=== PATIENT | female | born 1955 | race Two or more races ===

== ENCOUNTER → 2020-08-13 10:54 | Outpatient (BNVA) | payer MEDICARE, MEDICAID, OTHER, SELFPAY | PROVIDERS: PCP Pediatrics; Referring Provider Pediatrics; Visit Provider Physician Assistant | DX: K21.9 Gastro-esophageal reflux disease without esophagitis (principal); K58.9 Irritable bowel syndrome, unspecified; Z79.899 Other long term (current) drug therapy | CPT/HCPCS: 99213 ==

== ENCOUNTER 2020-08-14 12:15 | Emergency (ER) | payer MEDICARE, OTHER, SELFPAY ==
[2020-08-14 12:21] VITALS: BP 137/83; PULSE 74; RESP 16; TEMP 36.7; O2SAT 99; BMI 31.9
--- NOTE | 2020-08-14 12:26 | ED_ITS ---
HPI - Asthma General Chief Complaint: Dyspnea Stated Complaint: SOB FOR DAYS W/ CP Time Seen by Provider: 08/14/20 12:18 Source: EMS Mode of arrival: EMS Limitations: no limitations History of Present Illness HPI Narrative: 65-year-old female with history of asthma, hypothyroidism and history of breast CA status post resection presenting via EMS from urgent care with complaint of asthma exacerbation in the setting of URI for the past 3 days with associated symptoms of rhinorrhea, postnasal drip and cough with congestion. States this is triggering her asthma to have wheezing she tried to hold off and attempt to call her primary care doctor who did not answer so she went to the urgent care where she complaint of chest pain and was subsequently sent by EMS to the emergency room. Patient reports pain only with cough. No pain at this time. States history of similar symptoms in the past. Patient familiar to me from her prior visits here for asthma. Onset (ago): day(s) (3 +days ) Severity: mild Context: recent URI Asthma History: history of prior ED visit Treatments Prior to Arrival: inhaled bronchodilator Related Data Current Asthma Therapy: inhaled bronchodilator Home Medications Medication Instructions Recorded Confirmed albuterol sulfate mg INHALATION QID PRN 07/30/20 08/13/20 cetirizine 10 mg tablet 10 mg PO DAILY 07/30/20 08/13/20 cholecalciferol (vitamin D3) 50 50 mcg PO BID 07/30/20 08/13/20 mcg (2,000 unit) capsule citalopram 40 mg tablet 40 mg PO DAILY 07/30/20 08/13/20 clonazepam 0.5 mg tablet 0.5 mg PO DAILY PRN 07/30/20 08/13/20 clotrimazole 1 % topical cream applic TOPICAL BID 07/30/20 08/13/20 diphenhydramine HCl 25 mg tablet 25 mg PO BEDTIME PRN 07/30/20 08/13/20 fluticasone furoate 200 1 ea INHALATION DAILY 07/30/20 08/13/20 mcg-vilanterol 25 mcg/dose inhalation powder fluticasone propionate 50 1 spray INTRANASAL BID 07/30/20 08/13/20 mcg/actuation nasal spray,suspension hydrocortisone 2.5 % topical cream WV 07/30/20 08/13/20 with perineal applicator levothyroxine 100 mcg tablet 100 mcg PO DAILY 07/30/20 08/13/20 montelukast 10 mg tablet 10 mg PO DAILY 07/30/20 08/13/20 omeprazole 20 mg capsule,delayed 20 mg PO DAILY 07/30/20 08/13/20 release pantoprazole 40 mg tablet,delayed 40 mg PO DAILY 07/30/20 08/13/20 release umeclidinium 62.5 mcg/actuation INHALATION 07/30/20 08/13/20 blister powder for inhalation Previous Rx's Medication Instructions Recorded albuterol sulfate 2 puff INHALATION Q4-6H PRN #18 g 08/14/20 benzonatate [Tessalon Perles] 100 mg PO BID PRN #14 cap 08/14/20 prednisone 40 mg PO DAILY 5 Days #10 tab 08/14/20 Allergies Allergy/AdvReac Type Severity Reaction Status Date / Time animal dander Allergy Mild SHORTNESS Unverified 07/18/20 15:53 OF BREATH ciprofloxacin [From Cipro] Allergy Mild RASH Unverified 07/18/20 15:53 vancomycin [Vancomycin] Allergy Mild SHORTNESS Unverified 07/18/20 15:53 OF BREATH amoxicillin [AMOXICILLIN] Allergy Unknown RASH Unverified 07/18/20 15:53 chicken derived Allergy Unknown UNKNOWN Unverified 07/18/20 15:53 [CHICKEN DERIVED] egg [EGG] Allergy Unknown UNKNOWN Unverified 07/18/20 15:53 Penicillins [PENICILLINS] Allergy Unknown RASH Unverified 07/18/20 15:53 Review of Systems Review of Systems: Constitutional: No Weight loss, No Fever, No Chills, No Night Sweats, No Fatigue, No Malaise ENT/Mouth: No Hearing loss, No Ear Pain, + Nasal Congestion, No Sinus Pain, No Hoarseness, No sore throat, + Rhinorrhea, No Swallowing Difficulty Eyes: No Eye Pain, No Swelling, No Redness, No Foreign Body, No Discharge, No Vision Changes Cardiovascular: No Chest Pain, No SOB, No Dyspnea on Exertion, No Orthopnea, No Edema, No Palpitations Respiratory: + dry Cough with associated cwp, No Sputum, + Wheezing, No Smoke Exposure Gastrointestinal: No Nausea, No Vomiting, No Diarrhea, No Constipation, No abdominal Pain, No Hematochezia, No Melena Genitourinary: no irregular bleeding, No Dysuria, No Urinary Frequency, No Hematuria, No Urinary Incontinence, No Urgency, No Flank Pain, No Urinary Flow Changes, No Hesitancy Musculoskeletal: No joint pain, No Myalgias, No Joint Swelling Skin: No Skin Lesions, No rash Neuro: No Weakness, No Numbness, No Paresthesias, No Loss of Consciousness, No Dizziness, No Headache Psych: No Anxiety/Panic, No Depression, No SI/HI/AH/VH, No Social Issues, Heme/Lymph: No Bruising, No Bleeding,No Lymphadenopathy Endocrine: No Polyuria, No Polydipsia, No Temperature Intolerance [facility] Past Medical History Attestation statement: The following information was validated with the patient. Medical History (Updated 08/14/20 @ 15:17 by Jose J Fonseca NP) Acid reflux Anxiety Asthma Asthma dependent on inhaled steroids Depression Diverticulosis large intestine w/o perforation or abscess w/o bleeding Hypothyroid Irritable bowel Social History Social History (Updated 08/13/20 @ 10:18 by Leonie Puente PA-C) Alcohol intake: never Smoking Status: Never smoker Advance Directives: No Advance Directives Information Provided: Yes Physical Exam Vital Signs: Vital Signs: Vital Signs Temp Pulse Resp BP Pulse Ox 08/14/20 12:21 98.1 F 74 16 137/83 99 Body Mass Index 31.9 Reviewed Const: General: cooperative and healthy appearing; No acute distress or intoxicated appearing Nutritional Appearance: average body habitus Orientation/consciousness: patient oriented x3 HENMT: Head: Yes normal to inspection Ears: hearing grossly normal bilaterally Face and sinus: Yes dry mucous membranes Eyes: General: appearance normal, both eyes and all related structures Visual Pride: normal visual pride by confrontation Neck: Neck: Yes normal visual inspection and No tender Thyroid: Thyroid normal Chest: Chest palpation & inspection: normal inspection of the chest Resp: Effort & Inspection: normal respiratory effort Auscultation: wheezes ( Mild forced expiratory) left upper and right upper Cardio: Jugular venous distension: no JVD GI: Inspection: Yes normal to inspection Percussion: Yes normal to percussion Auscultation: normal bowel sounds : General: Yes no CVA tenderness Back/Spine/Pelvis: Back: no CVA tenderness Skin: General skin exam: no rashes or lesions noted Neuro: General: patient oriented x3 Extrem: General: Yes normal to inspection Course Course Course Narrative: Lung sounds clear to auscultation after DuoNeb.. Patient was given dexamethasone at the Urgent Care 10 mg oral. Labs unrevealing. No leukocytosis cardiac enzymes negative. Chest x-ray unremarkable. EKG no acute findings. AP more consistent with asthma exacerbation in the setting of a recent URI And less likely ACS/ PE/dissection. COVID-19 is PENDNG. Will discharge home with for course oral steroids, refill on her inhaler and antitussive with clear precaution return follow-up instructions. She is agreeable. Ambulatory steady straight gait. Oxygen 99% on room air. No shortness of breath or chest pain. Stable for discharge. Reevaluation(s) Reevaluation #1: Lung sounds clear to auscultation after DuoNeb feels better. Workup is pending. Portable bedside x-ray does not show any acute pulmonary disease. Reevaluation #2: has been resting comfortable. COVID-19 is pending does not want to wait for results. Will call if positive. In the meantime will follow CDC guidelines in relation to isolation social distancing. In no acute distress. Pulse ox again stable. Requesting to be discharged. Patient stable for discharge. MDM - Asthma Differential Diagnosis Differential diagnosis: Likely Acute exacerbation, Acute asthmatic bronchitis and Pneumonia; Unlikely Status asthmaticus, PE, COPD exacerbation, Pulmonary edema systolic, Pulmonary edema dystolic, ARDS, Pneumothorax and Foreign body in trachea Lab Data Result diagrams: 08/14/20 13:05 08/14/20 13:05 Labs: Lab Results 08/14/20 08/14/20 08/14/20 Range/Units 13:05 13:05 13:05 WBC 9.4 (4.8-10.8) X10*3/uL RBC 4.48 (4.20-5.50) X10*6/uL Hgb 12.3 (12.0-16.0) g/dl Hct 38.9 (37-47) % MCV 86.8 (80-98) fL MCH 27.5 (27.0-33.0) pg MCHC 31.6 (31.0-35.0) g/dl RDW 15.6 (11.0-16.0) % Plt Count 225 (160-400) X10*3/uL MPV 11.3 (9.4-12.3) fL Immature Gran % (Auto) 0.3 (0.0-0.4) % Neut % (Auto) 77.5 H (45-73) % Lymph % (Auto) 17.2 L (20-40) % Howell % (Auto) 3.0 (2-11) % Eos % (Auto) 1.3 (0-4) % Baso % (Auto) 0.7 (0-2) % Lymph # (Auto) 1.6 (1.2-4.9) X10*3/uL Howell # (Auto) 0.3 (0.1-1.2) X10*3/uL Eos # (Auto) 0.1 (0.0-0.4) X10*3/uL Baso # (Auto) 0.1 (0.0-0.2) X10*3/uL Abs Immat Gran (auto) 0.03 (0.00-0.03) X10*3/uL Absolute Neuts (auto) 7.2 (2.0-8.3) X10*3/uL Absolute Nucleated RBC 0.000 (0.0-0.012) X10*3/uL Nucleated RBC % (auto) 0.0 (0.0-0.2) /100WBC Hold Blue Top SEE NOTE Sodium 139 (135-145) mmol/L Potassium 4.3 (3.3-5.1) mmol/l Chloride 105 (96-108) mmol/L Carbon Dioxide 27 (22-29) mmol/L Anion Gap 11 L (12-20) BUN 12 (9-16) mg/dL Creatinine 1.01 (0.5-1.4) mg/dL Estim Creat Clear Calc 62.6 Estimated GFR 55 Random Glucose 94 (60-115) mg/dL Calcium 8.7 (8.4-10.2) mg/dL Troponin I High Sens (<3.5-17.0) ng/L B-Natriuretic Peptide (<100) pg/mL 08/14/20 Range/Units 13:05 WBC (4.8-10.8) X10*3/uL RBC (4.20-5.50) X10*6/uL Hgb (12.0-16.0) g/dl Hct (37-47) % MCV (80-98) fL MCH (27.0-33.0) pg MCHC (31.0-35.0) g/dl RDW (11.0-16.0) % Plt Count (160-400) X10*3/uL MPV (9.4-12.3) fL Immature Gran % (Auto) (0.0-0.4) % Neut % (Auto) (45-73) % Lymph % (Auto) (20-40) % Howell % (Auto) (2-11) % Eos % (Auto) (0-4) % Baso % (Auto) (0-2) % Lymph # (Auto) (1.2-4.9) X10*3/uL Howell # (Auto) (0.1-1.2) X10*3/uL Eos # (Auto) (0.0-0.4) X10*3/uL Baso # (Auto) (0.0-0.2) X10*3/uL Abs Immat Gran (auto) (0.00-0.03) X10*3/uL Absolute Neuts (auto) (2.0-8.3) X10*3/uL Absolute Nucleated RBC (0.0-0.012) X10*3/uL Nucleated RBC % (auto) (0.0-0.2) /100WBC Hold Blue Top Sodium (135-145) mmol/L Potassium (3.3-5.1) mmol/l Chloride (96-108) mmol/L Carbon Dioxide (22-29) mmol/L Anion Gap (12-20) BUN (9-16) mg/dL Creatinine (0.5-1.4) mg/dL Estim Creat Clear Calc Estimated GFR Random Glucose (60-115) mg/dL Calcium (8.4-10.2) mg/dL Troponin I High Sens < 3.5 (<3.5-17.0) ng/L B-Natriuretic Peptide 10 (<100) pg/mL Imaging Data Chest x-ray: Radiologist's impression: [address] [address] XRay Report Signed Patient: Nicol Sexton#: [id number] : 5Acct:[id number] Age/Sex: 65 / FADM Date: 08/14/20 Loc: HO.ED Attending Dr: Ordering Physician: Jose J Fonseca NP Date of Service: 08/14/20 Procedure(s): XR chest 1V Accession Number(s): [id number] cc: Jose J Fonseca DISTRICT OR DISTRICT OFFICE DIRECTOR~ EXAMINATION: XR CHEST CLINICAL INFORMATION: Shortness of breath COMPARISON: Previous x-ray most recent June 2020 TECHNIQUE: Frontal view of the chest was obtained. FINDINGS: The cardiac and mediastinal contours are normal. The lungs are clear. There is no pleural effusion or pneumothorax. There are surgical clips in the left axilla. Bony structures are unremarkable. IMPRESSION: No evidence for acute disease in the chest. Dictated By:RAY BUSH MD Signed By:<Electronically signed by RAY BUSH MD in OV>08/14/20 1256 DD/ 1233 TD/TT: Parole Agent: DEMETRICE ECG Data Interpretation: Normal sinus rhythm Rate [address] segment changes Discharge Plan Discharge Clinical Impression: Upper respiratory infection, viral Asthma with exacerbation Qualifiers: Asthma severity: unspecified severity Asthma persistence: unspecified Qualified Code(s): J45.901 - Unspecified asthma with (acute) exacerbation Patient Disposition: Home, Self-Care Prescriptions: New prednisone 20 mg tablet 40 mg PO DAILY 5 Days Qty: 10 RF: 0 albuterol sulfate 90 mcg/actuation HFA aerosol inhaler 2 puff inhalation Q4-6H PRN (Reason: shortness of breath or wheezing) Qty: 18 RF: 0 benzonatate [Tessalon Perles] 100 mg capsule 100 mg PO BID PRN (Reason: cough) Qty: 14 RF: 0 No Action clotrimazole 1 % cream topical BID RF: 0 fluticasone propionate 50 mcg/actuation spray,suspension 1 spray intranasal BID RF: 0 diphenhydramine HCl 25 mg tablet 25 mg PO BEDTIME PRNRF: 0 pantoprazole 40 mg tablet,delayed release (DR/EC) 40 mg PO DAILY RF: 0 albuterol sulfate 2.5 mg /3 mL (0.083 %) solution for nebulization inhalation QID PRNRF: 0 Incruse Ellipta 62.5 mcg/actuation blister with device inhalation RF: 0 cholecalciferol (vitamin D3) 50 mcg (2,000 unit) capsule 50 mcg PO BID RF: 0 montelukast 10 mg tablet 10 mg PO DAILY RF: 0 levothyroxine 100 mcg tablet 100 mcg PO DAILY RF: 0 cetirizine 10 mg tablet 10 mg PO DAILY RF: 0 citalopram 40 mg tablet 40 mg PO DAILY RF: 0 hydrocortisone 2.5 % cream with perineal applicator WV RF: 0 omeprazole 20 mg capsule,delayed release(DR/EC) 20 mg PO DAILY RF: 0 clonazepam 0.5 mg tablet 0.5 mg PO DAILY PRN (Reason: anxiety) RF: 0 Breo Ellipta 200-25 mcg/dose blister with device 1 ea inhalation DAILY RF: 0 Referrals: Sosa Clement MD [Primary Care Provider] - 2 days Interventions: ED Discharge Assessment Last Done: 08/14/20 15:45 Discharge Date/Time: 08/14/20 15:46
--- NOTE | 2020-08-14 12:33 | ECG_ITS ---
Test Reason : SOB Blood Pressure : / mmHG Vent. Rate : 078 BPM Atrial Rate : 078 BPM P-R Int : 170 ms QRS Dur : 080 ms QT Int : 406 ms P-R-T Axes : 045 018 069 degrees QTc Int : 462 ms Normal sinus rhythm Normal ECG When compared with ECG of 07-JUN-2020 11:44, No significant change was found Referred By: Jose J Fonseca Electronically Signed By:GERARD DE LEÓN MD
--- NOTE | 2020-08-14 12:33 | XR_ITS ---
EXAMINATION: XR CHEST CLINICAL INFORMATION: Shortness of breath COMPARISON: Previous x-ray most recent June 2020 TECHNIQUE: Frontal view of the chest was obtained. FINDINGS: The cardiac and mediastinal contours are normal. The lungs are clear. There is no pleural effusion or pneumothorax. There are surgical clips in the left axilla. Bony structures are unremarkable. IMPRESSION: No evidence for acute disease in the chest.
[2020-08-14] MEDS: Albuterol/Iprat 2.5/0.5MG 3 ML AMPUL.NEB INHALE (12:43)
[2020-08-14 13:22] LABS: MANUAL DIFF FLAG NO
[2020-08-14 13:25] LABS: Basophils Absolute Auto 0.1 X10*3/uL (0.0-0.2); Basophils Percent Auto 0.7 % (0-2); Eosinophils Absolute Auto 0.1 X10*3/uL (0.0-0.4); Eosinophils Percent Auto 1.3 % (0-4); Hematocrit 38.9 % (37-47); Hemoglobin 12.3 g/dl (12.0-16.0); Imm Gran Abs Auto 0.03 X10*3/uL (0.00-0.03); Imm Gran Pct Auto 0.3 % (0.0-0.4); Lymphocytes Absolute Auto 1.6 X10*3/uL (1.2-4.9); Lymphocytes Percent Auto 17.2 % (20-40); Mean Corpuscular HGB Conc 31.6 g/dl (31.0-35.0); Mean Corpuscular Hemoglobin 27.5 pg (27.0-33.0); Mean Corpuscular Volume 86.8 fL (80-98); Mean Platelet Volume 11.3 fL (9.4-12.3); Monocytes Absolute Auto 0.3 X10*3/uL (0.1-1.2); Neutrophils Absolute Auto 7.2 X10*3/uL (2.0-8.3); Neutrophils Percent Auto 77.5 % (45-73); Platelet Count 225 X10*3/uL (160-400); Red Blood Count 4.48 X10*6/uL (4.20-5.50); Red Cell Distribution Width 15.6 % (11.0-16.0); White Blood Count 9.4 X10*3/uL (4.8-10.8)
[2020-08-14 14:02] LABS: B Type Natriuretic Peptide 10 pg/mL (<100); Troponin-I High Sensitivity < 3.5 ng/L (<3.5-17.0)
[2020-08-14 14:03] LABS: Anion Gap 11 (12-20); Blood Urea Nitrogen 12 mg/dL (9-16); Calcium 8.7 mg/dL (8.4-10.2); Carbon Dioxide 27 mmol/L (22-29); Chloride 105 mmol/L (96-108); Creatinine Clr Calc Pharmacy 62.6; Estimated Glomerular Filt Rate 55; Glucose Random 94 mg/dL (60-115); Potassium 4.3 mmol/l (3.3-5.1); Sodium 139 mmol/L (135-145)
[2020-08-14 16:03] LABS: SARS COV2 PCR INHOUSE NEGATIVE (Negative)
== END 2020-08-14 15:46 | disposition home or self-care (01) ==
PROVIDERS: Nurse Practitioner Primary Care; Emergency Provider Emergency Medicine; PCP Pediatrics
DX: J06.9 Acute upper respiratory infection, unspecified (principal); J45.901 Unspecified asthma with (acute) exacerbation; Z79.899 Other long term (current) drug therapy; Z20.828 Contact with and (suspected) exposure to other viral communicable diseases
CPT/HCPCS: 36415; 71045; 80048; 83880; 84484; 85025; 87635; 93005; 99283; 99284

== ENCOUNTER → 2020-08-20 13:56 | Outpatient (BNVA) | payer MEDICARE, MEDICAID, SELFPAY | PROVIDERS: PCP Pediatrics; Referring Provider Pediatrics; Visit Provider Internal Medicine | DX: J44.1 Chronic obstructive pulmonary disease with (acute) exacerbation (principal); J30.9 Allergic rhinitis, unspecified; F41.9 Anxiety disorder, unspecified; Z79.899 Other long term (current) drug therapy | CPT/HCPCS: 99213 ==

== ENCOUNTER → 2020-10-07 13:37 | Outpatient (BNVA) | payer MEDICARE, OTHER, SELFPAY | PROVIDERS: PCP Pediatrics; Visit Provider Internal Medicine | DX: J44.9 Chronic obstructive pulmonary disease, unspecified (principal); J30.9 Allergic rhinitis, unspecified; F41.9 Anxiety disorder, unspecified | CPT/HCPCS: 99212 ==

== ENCOUNTER 2020-10-29 16:33 | Emergency (ER) | payer MEDICARE, OTHER, SELFPAY ==
[2020-10-29 17:12] VITALS: BP 102/73; PULSE 96; RESP 20; TEMP 36.6; O2SAT 98; BMI 33.5
--- NOTE | 2020-10-29 17:15 | XR_ITS ---
EXAMINATION: XR CHEST CLINICAL INFORMATION: Difficulty breathing COMPARISON: Chest x-ray 08/14/2020 TECHNIQUE: Frontal view of the chest was obtained. FINDINGS: Cardiac silhouette is normal in size. The lungs are well aerated. There is no lobar consolidation. No pleural effusion or pneumothorax. Surgical clips of the left axilla. XR/XR chest 1V IMPRESSION: Stable examination demonstrating no acute pulmonary pathology.
--- NOTE | 2020-10-29 17:15 | ECG_ITS ---
Test Reason : SOB Blood Pressure : / mmHG Vent. Rate : 081 BPM Atrial Rate : 081 BPM P-R Int : 182 ms QRS Dur : 076 ms QT Int : 384 ms P-R-T Axes : 039 035 068 degrees QTc Int : 446 ms Normal sinus rhythm Normal ECG When compared with ECG of 14-AUG-2020 12:58, No significant change was found Referred By: Generic ED Physician Electronically Signed By:DEON KIMBROUGH
[2020-10-29 21:58] LABS: MANUAL DIFF FLAG NO
[2020-10-29 22:00] LABS: Basophils Absolute Auto 0.1 X10*3/uL (0.0-0.2); Basophils Percent Auto 0.7 % (0-2); Eosinophils Absolute Auto 0.2 X10*3/uL (0.0-0.4); Eosinophils Percent Auto 1.6 % (0-4); Hematocrit 37.8 % (37-47); Hemoglobin 11.8 g/dl (12.0-16.0); Imm Gran Abs Auto 0.02 X10*3/uL (0.00-0.03); Imm Gran Pct Auto 0.2 % (0.0-0.4); Lymphocytes Absolute Auto 2.7 X10*3/uL (1.2-4.9); Lymphocytes Percent Auto 25.4 % (20-40); Mean Corpuscular HGB Conc 31.2 g/dl (31.0-35.0); Mean Corpuscular Hemoglobin 27.2 pg (27.0-33.0); Mean Corpuscular Volume 87.1 fL (80-98); Mean Platelet Volume 10.8 fL (9.4-12.3); Monocytes Absolute Auto 0.8 X10*3/uL (0.1-1.2); Monocytes Percent Auto 7.9 % (2-11); Neutrophils Absolute Auto 6.8 X10*3/uL (2.0-8.3); Neutrophils Percent Auto 64.2 % (45-73); Platelet Count 243 X10*3/uL (160-400); Red Blood Count 4.34 X10*6/uL (4.20-5.50); Red Cell Distribution Width 15.2 % (11.0-16.0); White Blood Count 10.5 X10*3/uL (4.8-10.8)
[2020-10-29 22:07] VITALS: BP 122/63; PULSE 88; RESP 22; O2SAT 97
--- NOTE | 2020-10-29 22:07 | ED_ITS ---
HPI - Asthma General Chief Complaint: Asthma Stated Complaint: asthma Time Seen by Provider: 10/29/20 21:47 Source: patient Mode of arrival: ambulatory Limitations: no limitations History of Present Illness HPI Narrative: Patient comes to emergency room complaining asthma exacerbations intermittently for 1 week. Patient denies any coughing, no fever. Patient states she has been taking her oxygen saturation at home, usually goes down to 90-93% while ambulating. Related Data Home Medications Medication Instructions Recorded Confirmed cetirizine 10 mg tablet 10 mg PO DAILY 07/30/20 08/13/20 cholecalciferol (vitamin D3) 50 50 mcg PO BID 07/30/20 08/13/20 mcg (2,000 unit) capsule citalopram 40 mg tablet 40 mg PO DAILY 07/30/20 08/13/20 clonazepam 0.5 mg tablet 0.5 mg PO DAILY PRN 07/30/20 08/13/20 clotrimazole 1 % topical cream applic TOPICAL BID 07/30/20 08/13/20 diphenhydramine HCl 25 mg tablet 25 mg PO BEDTIME PRN 07/30/20 08/13/20 fluticasone propionate 50 1 spray INTRANASAL BID 07/30/20 08/13/20 mcg/actuation nasal spray,suspension levothyroxine 100 mcg tablet 100 mcg PO DAILY 07/30/20 08/13/20 montelukast 10 mg tablet 10 mg PO DAILY 07/30/20 08/13/20 pantoprazole 40 mg tablet,delayed 40 mg PO DAILY 07/30/20 08/13/20 release umeclidinium 62.5 mcg/actuation INHALATION 07/30/20 08/13/20 blister powder for inhalation acetaminophen 650 mg 650 mg PO Q8H PRN 10/07/20 tablet,extended release budesonide 0.5 mg/2 mL suspension 0.5 mg INHALATION .q 6 h ml 10/07/20 for nebulization Previous Rx's Medication Instructions Recorded albuterol sulfate 2 puff INHALATION Q4-6H PRN #18 g 08/14/20 benzonatate [Tessalon Perles] 100 mg PO BID PRN #14 cap 08/14/20 hydrocortisone 2.5 % topical cream 1 applic [place] BID-QID PRN #30 g 08/23/20 with perineal applicator prednisone 50 mg PO DAILY #4 tab 10/29/20 Allergies Allergy/AdvReac Type Severity Reaction Status Date / Time animal dander Allergy Mild SHORTNESS Verified 10/07/20 13:56 OF BREATH ciprofloxacin [From Cipro] Allergy Mild RASH Verified 10/07/20 13:56 vancomycin [Vancomycin] Allergy Mild SHORTNESS Verified 10/07/20 13:56 OF BREATH amoxicillin [AMOXICILLIN] Allergy Unknown RASH Verified 10/07/20 13:56 Penicillins [PENICILLINS] Allergy Unknown RASH Verified 10/07/20 13:56 [facility] Past Medical History Medical History (Updated 10/30/20 @ 00:00 by Background Daemon) Acid reflux Acute anxiety Allergic rhinitis Anxiety Asthma Asthma dependent on inhaled steroids COPD (chronic obstructive pulmonary disease) COPD exacerbation Depression Diverticulosis large intestine w/o perforation or abscess w/o bleeding Hypothyroid Irritable bowel Social History Social History Alcohol intake: unknown Smoking Status: Unknown if ever smoked Use of substances other than those prescribed or required for medical reasons: No Advance Directives: No Advance Directives Information Provided: No Physical Exam Vital Signs: Vital Signs: Last Vital Signs Temp 97.9 F 10/29/20 17:12 Pulse 88 10/29/20 22:07 Resp 22 H 10/29/20 22:07 BP 122/63 10/29/20 22:07 Pulse Ox 97 10/29/20 22:07 Body Mass Index 33.5 Course Course Course Narrative: Patient's oxygen saturation remains at 98% on room air. Patient walked around the ED with her nurse, oxygen saturation stayed steady at 96%. Checks x-ray within normal limits. While patient was waiting to be discharged, she developed an itchy rash in the left arm, down the medications that the patient received were sublingual Zofran and oral prednisone. Patient states that she has never had any issues with Zofran in the past. Patient denies shortness of breath, physical exam no wheezing now Patient was given Benadryl. MDM - Asthma Lab Data Result diagrams: 10/29/20 21:52 10/29/20 21:52 Labs: Lab Results 10/29/20 10/29/20 10/29/20 Range/Units 21:51 21:52 21:52 WBC 10.5 (4.8-10.8) X10*3/uL RBC 4.34 (4.20-5.50) X10*6/uL Hgb 11.8 L (12.0-16.0) g/dl Hct 37.8 (37-47) % MCV 87.1 (80-98) fL MCH 27.2 (27.0-33.0) pg MCHC 31.2 (31.0-35.0) g/dl RDW 15.2 (11.0-16.0) % Plt Count 243 (160-400) X10*3/uL MPV 10.8 (9.4-12.3) fL Immature Gran % (Auto) 0.2 (0.0-0.4) % Neut % (Auto) 64.2 (45-73) % Lymph % (Auto) 25.4 (20-40) % Meigs % (Auto) 7.9 (2-11) % Eos % (Auto) 1.6 (0-4) % Baso % (Auto) 0.7 (0-2) % Lymph # (Auto) 2.7 (1.2-4.9) X10*3/uL Meigs # (Auto) 0.8 (0.1-1.2) X10*3/uL Eos # (Auto) 0.2 (0.0-0.4) X10*3/uL Baso # (Auto) 0.1 (0.0-0.2) X10*3/uL Abs Immat Gran (auto) 0.02 (0.00-0.03) X10*3/uL Absolute Neuts (auto) 6.8 (2.0-8.3) X10*3/uL Absolute Nucleated RBC 0.000 (0.0-0.012) X10*3/uL Nucleated RBC % (auto) 0.0 (0.0-0.2) /100WBC Hold Blue Top SEE NOTE Sodium 140 (135-145) mmol/L Potassium 4.3 (3.3-5.1) mmol/l Chloride 103 (96-108) mmol/L Carbon Dioxide 31 H (22-29) mmol/L Anion Gap 10 L (12-20) BUN 16 (9-16) mg/dL Creatinine 1.04 (0.5-1.4) mg/dL Estim Creat Clear Calc 58.1 Estimated GFR 53 Random Glucose 117 H (60-115) mg/dL Calcium 9.0 (8.4-10.2) mg/dL Troponin I High Sens (<3.5-17.0) ng/L B-Natriuretic Peptide (<100) pg/mL 10/29/20 Range/Units 21:52 WBC (4.8-10.8) X10*3/uL RBC (4.20-5.50) X10*6/uL Hgb (12.0-16.0) g/dl Hct (37-47) % MCV (80-98) fL MCH (27.0-33.0) pg MCHC (31.0-35.0) g/dl RDW (11.0-16.0) % Plt Count (160-400) X10*3/uL MPV (9.4-12.3) fL Immature Gran % (Auto) (0.0-0.4) % Neut % (Auto) (45-73) % Lymph % (Auto) (20-40) % Meigs % (Auto) (2-11) % Eos % (Auto) (0-4) % Baso % (Auto) (0-2) % Lymph # (Auto) (1.2-4.9) X10*3/uL Meigs # (Auto) (0.1-1.2) X10*3/uL Eos # (Auto) (0.0-0.4) X10*3/uL Baso # (Auto) (0.0-0.2) X10*3/uL Abs Immat Gran (auto) (0.00-0.03) X10*3/uL Absolute Neuts (auto) (2.0-8.3) X10*3/uL Absolute Nucleated RBC (0.0-0.012) X10*3/uL Nucleated RBC % (auto) (0.0-0.2) /100WBC Hold Blue Top Sodium (135-145) mmol/L Potassium (3.3-5.1) mmol/l Chloride (96-108) mmol/L Carbon Dioxide (22-29) mmol/L Anion Gap (12-20) BUN (9-16) mg/dL Creatinine (0.5-1.4) mg/dL Estim Creat Clear Calc Estimated GFR Random Glucose (60-115) mg/dL Calcium (8.4-10.2) mg/dL Troponin I High Sens < 3.5 (<3.5-17.0) ng/L B-Natriuretic Peptide 23 (<100) pg/mL ECG Data Attestation: I personally reviewed and interpreted this ECG as follows: (Sinus rhythm, heart rate 81, QTC 446, no ST segment depressions or elevations, no T- wave inversions) Discharge Plan Discharge Clinical Impression: Asthma Patient Disposition: Home, Self-Care Instructions: Asthma (ED) Additional Instructions: Please follow-up with your primary care physician tomorrow. If you have any worsening or new symptoms, please return to the emergency room or call 911 Prescriptions: New prednisone 50 mg tablet 50 mg PO DAILY Qty: 4 RF: 0 No Action hydrocortisone [Procto-Med HC] 2.5 % cream with perineal applicator 1 applic [place] BID-QID PRN (Reason: hemorrhoids) Qty: 30 RF: 3 albuterol sulfate 90 mcg/actuation HFA aerosol inhaler 2 puff inhalation Q4-6H PRN (Reason: shortness of breath or wheezing) Qty: 18 RF: 0 benzonatate [Tessalon Perles] 100 mg capsule 100 mg PO BID PRN (Reason: cough) Qty: 14 RF: 0 clotrimazole 1 % cream topical BID RF: 0 fluticasone propionate 50 mcg/actuation spray,suspension 1 spray intranasal BID RF: 0 diphenhydramine HCl 25 mg tablet 25 mg PO BEDTIME PRNRF: 0 pantoprazole 40 mg tablet,delayed release (DR/EC) 40 mg PO DAILY RF: 0 Incruse Ellipta 62.5 mcg/actuation blister with device inhalation RF: 0 cholecalciferol (vitamin D3) 50 mcg (2,000 unit) capsule 50 mcg PO BID RF: 0 montelukast 10 mg tablet 10 mg PO DAILY RF: 0 levothyroxine 100 mcg tablet 100 mcg PO DAILY RF: 0 cetirizine 10 mg tablet 10 mg PO DAILY RF: 0 citalopram 40 mg tablet 40 mg PO DAILY RF: 0 clonazepam 0.5 mg tablet 0.5 mg PO DAILY PRN (Reason: anxiety) RF: 0 budesonide 0.5 mg/2 mL suspension for nebulization 0.5 mg inhalation .q 6 h RF: 0 acetaminophen 650 mg tablet extended release 650 mg PO Q8H PRN (Reason: pain) RF: 0 Interventions: ED Discharge Assessment Last Done: 10/29/20 23:30 Discharge Date/Time: 10/29/20 23:51
[2020-10-29 22:18] LABS: Anion Gap 10 (12-20); Blood Urea Nitrogen 16 mg/dL (9-16); Carbon Dioxide 31 mmol/L (22-29); Chloride 103 mmol/L (96-108); Creatinine Clr Calc Pharmacy 58.1; Estimated Glomerular Filt Rate 53; Glucose Random 117 mg/dL (60-115); Potassium 4.3 mmol/l (3.3-5.1); Sodium 140 mmol/L (135-145)
[2020-10-29] MEDS: predniSONE 20 MG TABLET 60 MG PO (22:19)
--- NOTE | 2020-10-29 22:24 | PC.NURSE ---
AMBULATION TRIAL COMPLETED, PT SPO2 MAINTAINING 96% OR HIGHER HOWEVER PT WORK OF BREATHING INCREASING SUBSTANTIALLY AND PT HR INCREASING FROM 90S TO 110S. DR INTERIANO MADE AWARE
[2020-10-29 22:26] LABS: B Type Natriuretic Peptide 23 pg/mL (<100); Troponin-I High Sensitivity < 3.5 ng/L (<3.5-17.0)
[2020-10-29] MEDS: diphenhydrAMINE HCL 25 MG TABLET 50 MG PO (23:39)
== END 2020-10-29 23:51 | disposition home or self-care (01) ==
PROVIDERS: Emergency Provider Emergency Medicine; PCP Pediatrics
DX: J45.909 Unspecified asthma, uncomplicated (principal); Z79.899 Other long term (current) drug therapy
CPT/HCPCS: 36415; 71045; 80048; 83880; 84484; 85025; 93005; 99284; Q0163

== ENCOUNTER 2020-11-08 09:03 | Outpatient (REF) | payer MEDICARE, MEDICAID, OTHER, SELFPAY | END 2020-11-08 09:04 | disposition home or self-care (01) | LOC: HO.LAB 09:03 | PROVIDERS: Visit Provider Internal Medicine | DX: Z20.822 Contact with and (suspected) exposure to COVID-19 (principal) | CPT/HCPCS: 36415; C9803; U0003 ==

== ENCOUNTER → 2020-11-14 11:13 | Outpatient (BNV) | payer MEDICARE, MEDICAID, SELFPAY | PROVIDERS: PCP Pediatrics; Visit Provider Internal Medicine Medical Oncology | DX: M25.50 Pain in unspecified joint (principal); Z86.000 Personal history of in-situ neoplasm of breast | CPT/HCPCS: 99212; 99213; 99214 ==

== ENCOUNTER → 2020-11-26 14:14 | Outpatient (BNVA) | payer MEDICARE, OTHER, SELFPAY | PROVIDERS: PCP Pediatrics; Visit Provider Physician Assistant | DX: Z13.89 Encounter for screening for other disorder (principal) | CPT/HCPCS: Q3014 ==

== ENCOUNTER 2021-01-20 18:30 | Emergency (ER) | payer MEDICARE, OTHER, SELFPAY ==
--- NOTE | ~2021-01-20 | CT_ITS ---
EXAMINATION: CT ABDOMEN AND PELVIS WITHOUT CONTRAST CLINICAL INFORMATION: Left lower quadrant pain. Concern for diverticulitis. COMPARISON: CT scan abdomen pelvis 12/11/2018 TECHNIQUE: Multidetector volumetric imaging was performed from the superior aspect of the liver through the pubic symphysis. Sagittal and coronal reformatted images were obtained on the technologist's workstation. This CT examination was performed using dose optimization techniques as appropriate, variously including the following: *Automated exposure control *Adjustment of mA and/or kV according to patient size (this includes techniques or standardized protocols for targeted exams where dose is matched to indication/reason for exam; i.e. extremities or head) *Use of iterative reconstruction technique DLP: 686 mGy-cm FINDINGS: LUNG BASES: The visualized lung bases are unremarkable. There is a moderate-sized sized hiatal hernia. LIVER, GALLBLADDER, AND BILIARY TREE: The liver is normal in size, shape, and attenuation. No focal hepatic lesion or biliary ductal dilatation is present. Status post cholecystectomy. PANCREAS: Unremarkable. SPLEEN: Unremarkable. ADRENAL GLANDS: Unremarkable. KIDNEYS AND URETERS: The kidneys are normal in size, shape, and attenuation. No hydronephrosis, hydroureter, or calculi seen. No perinephric stranding. BLADDER: Unremarkable. GASTROINTESTINAL TRACT: There are innumerable diverticula of the sigmoid colon. There are scattered diverticula in the remainder the colon. There is a small amount of pericolonic fluid in the pelvis and subtle edema around the proximal sigmoid colon. This consistent with a mild diverticulitis. There is no bowel obstruction. There is a moderate volume of stool in the colon. The appendix is normal . The small bowel loops are unremarkable. The stomach is normal. There is moderate-sized hiatal hernia. ABDOMINAL WALL: No significant hernia is appreciated. LYMPH NODES: Normal. VASCULAR: Unremarkable. PELVIC VISCERA: Unremarkable. OSSEOUS STRUCTURES: Unremarkable. CT/CT abdomen pelvis wo con IMPRESSION: Marked diverticulosis of sigmoid colon. Mild diverticulitis of the proximal sigmoid colon.
[2021-01-20 18:38] VITALS: BP 126/70; PULSE 82; RESP 16; TEMP 36.9; O2SAT 96; BMI 33.7
[2021-01-20 20:44] VITALS: BP 150/74; PULSE 73; RESP 16; O2SAT 98
--- NOTE | 2021-01-20 20:44 | ED.ABDPAIN ---
HPI - Abdominal Pain General Chief Complaint: Abdominal Pain Stated Complaint: ABD PAIN Time Seen by Provider: 01/20/21 20:43 Source: patient Mode of arrival: ambulatory Limitations: no limitations History of Present Illness HPI narrative: Patient's history of kidney stone received 2nd dose of COVID vaccine 5 days ago for last 2 days complaining of pain in left lower abdomen with nausea and vomiting no back pain no urinary complaint no diarrhea no blood in stool patient does not feel hungry because of the pain no abdominal distension no blood in the stool MD elicited complaint: abdominal pain Related Data Home Medications Medication Instructions Recorded Confirmed cetirizine 10 mg tablet 10 mg PO DAILY 07/30/20 11/14/20 cholecalciferol (vitamin D3) 50 50 mcg PO BID 07/30/20 11/26/20 mcg (2,000 unit) capsule citalopram 40 mg tablet 40 mg PO DAILY 07/30/20 11/26/20 clonazepam 0.5 mg tablet 0.5 mg PO DAILY PRN 07/30/20 11/26/20 clotrimazole 1 % topical cream 1 applic TOPICAL BID 07/30/20 11/14/20 diphenhydramine HCl 25 mg tablet 25 mg PO BEDTIME PRN 07/30/20 11/26/20 fluticasone propionate 50 1 spray INTRANASAL BID 07/30/20 11/26/20 mcg/actuation nasal spray,suspension levothyroxine 100 mcg tablet 100 mcg PO DAILY 07/30/20 11/26/20 montelukast 10 mg tablet 10 mg PO DAILY 07/30/20 11/14/20 pantoprazole 40 mg tablet,delayed 40 mg PO DAILY 07/30/20 11/14/20 release umeclidinium 62.5 mcg/actuation 62.5 inh INHALATION DAILY 07/30/20 11/14/20 blister powder for inhalation acetaminophen 650 mg 650 mg PO Q8H PRN 10/07/20 11/26/20 tablet,extended release budesonide 0.5 mg/2 mL suspension 0.5 mg INHALATION .q 6 h ml 10/07/20 11/26/20 for nebulization Previous Rx's Medication Instructions Recorded albuterol sulfate 2 puff INHALATION Q4-6H PRN #18 g 08/14/20 docusate sodium 100 mg capsule 200 mg PO BEDTIME #60 cap 11/26/20 methylcellulose (laxative) 500 mg 500 mg PO BID #60 tab 11/26/20 tablet pantoprazole 40 mg tablet,delayed 40 mg PO QAM #30 tab 11/26/20 release hydrocortisone 2.5 % topical cream 1 appl [place] BID-QID PRN #30 g 01/02/21 with perineal applicator cefuroxime axetil 500 mg PO BID 10 Days #20 tab 01/20/21 dicyclomine 20 mg PO TID PRN #20 tab 01/20/21 metronidazole [Flagyl] 500 mg PO BID #20 tab 01/20/21 Allergies Allergy/AdvReac Type Severity Reaction Status Date / Time animal dander Allergy Mild SHORTNESS Verified 01/20/21 18:48 OF BREATH ciprofloxacin [From Cipro] Allergy Mild RASH Verified 01/20/21 18:48 vancomycin [Vancomycin] Allergy Mild SHORTNESS Verified 01/20/21 18:48 OF BREATH amoxicillin [AMOXICILLIN] Allergy Unknown RASH Verified 01/20/21 18:48 Penicillins [PENICILLINS] Allergy Unknown RASH Verified 01/20/21 18:48 Review of Systems Review of Systems Constitutional : No Weight loss, No Fever, No Chills ENT/Mouth : No sore throat, No Rhinorrhea Eyes: No Eye Pain, No Swelling Cardiovascular : No Chest Pain, no palpitations Respiratory : No Cough, No Sputum, no shortness of breath Gastrointestinal : + Nausea, + Vomiting, No Diarrhea, ++ abdominal Pain, no black stools Genitourinary : No Dysuria, No Urinary Frequency Musculoskeletal : No joint pain, No Myalgias, No Joint Swelling Skin : No Skin Lesions, No rash Neuro : No Weakness, No Numbness, No Dizziness, No Headache Psych : No Anxiety/Panic, No Depression Heme/Lymph: No Bruising, No Lymphadenopathy Endocrine : No Polyuria, No Polydipsia All other systems reviewed and are negative Physical Exam Vital Signs: Vital Signs: Last Vital Signs Temp 98.4 F 01/20/21 18:38 Pulse 73 01/20/21 22:31 Resp 16 01/20/21 22:31 BP 157/84 H 01/20/21 22:31 Pulse Ox 98 01/20/21 22:31 Body Mass Index 33.7 Appearance: Alert. Oriented X3. No acute distress. Eyes: Pupils equal, round and reactive to light. ENT: Pharynx normal. Neck: Normal inspection. Neck supple. CVS: Normal heart rate and rhythm. Pulses normal. Respiratory: No respiratory distress. Breath sounds normal. Abdomen: Soft deep tenderness left lower quadrant no rebound tenderness or guarding Bowel sounds are present, no mass palpable, no CVA tenderness Skin: Skin warm and dry. Normal skin color. Normal skin turgor. Extremities: No lower extremity edema. Neuro: Oriented X 3. No motor deficit. No sensory deficit. MDM - Abdominal Pain MDM Narrative Medical decision making narrative: Patient left lower quadrant pain likely diverticulitis CT scan confirmed mild diverticulitis no kidney stone with normal white counts normal urine will treat her on antibiotic as outpatient on Ceftin and Flagyl patient allergic to other medications Differential Diagnosis Differential diagnosis: Likely abdominal pain, calculus of kidney and diverticulitis Lab Data Attestation: I reviewed the patient's lab results. Result diagrams: 01/20/21 21:11 01/20/21 21:12 Labs: Lab Results 01/20/21 01/20/21 01/20/21 Range/Units 21:11 21:12 21:12 WBC 9.3 (4.8-10.8) X10*3/uL RBC 4.35 (4.20-5.50) X10*6/uL Hgb 11.8 L (12.0-16.0) g/dl Hct 37.9 (37-47) % MCV 87.1 (80-98) fL MCH 27.1 (27.0-33.0) pg MCHC 31.1 (31.0-35.0) g/dl RDW 15.0 (11.0-16.0) % Plt Count 239 (160-400) X10*3/uL MPV 10.3 (9.4-12.3) fL Immature Gran % (Auto) 0.2 (0.0-0.4) % Neut % (Auto) 62.5 (45-73) % Lymph % (Auto) 26.8 (20-40) % Citrus % (Auto) 7.3 (2-11) % Eos % (Auto) 2.7 (0-4) % Baso % (Auto) 0.5 (0-2) % Lymph # (Auto) 2.5 (1.2-4.9) X10*3/uL Citrus # (Auto) 0.7 (0.1-1.2) X10*3/uL Eos # (Auto) 0.3 (0.0-0.4) X10*3/uL Baso # (Auto) 0.1 (0.0-0.2) X10*3/uL Abs Immat Gran (auto) 0.02 (0.00-0.03) X10*3/uL Absolute Neuts (auto) 5.8 (2.0-8.3) X10*3/uL Absolute Nucleated RBC 0.000 (0.0-0.012) X10*3/uL Nucleated RBC % (auto) 0.0 (0.0-0.2) /100WBC Sodium 140 (135-145) mmol/L Potassium 4.0 (3.3-5.1) mmol/L Chloride 103 (96-108) mmol/L Carbon Dioxide 28 (22-29) mmol/L Anion Gap 13 (12-20) BUN 11 (9-16) mg/dL Creatinine 1.06 (0.5-1.4) mg/dL Estim Creat Clear Calc 57.2 Estimated GFR 52 Random Glucose 82 D (60-115) mg/dL Calcium 8.8 (8.4-10.2) mg/dL Total Bilirubin 0.6 (0.0-1.0) mg/dL Direct Bilirubin 0.2 (0.0-0.5) mg/dL AST 16 (5-31) U/L ALT 14 (0-31) U/L Alkaline Phosphatase 184 H (39-117) U/L Total Protein 7.0 (6.5-8.0) g/dL Albumin 4.1 (3.5-5.0) g/dL Lipase 10 (8-78) U/L Urine Color Urine Appearance Urine pH (5.0-8.0) Ur Specific [place] (1.005-1.025) Urine Protein (NEG-TRACE) MG/DL Urine Glucose (UA) (NEG) MG/DL Urine Ketones (NEG) MG/DL Urine Blood (NEG) Urine Nitrite (NEG) Ur Leukocyte Esterase (NEG) 01/20/21 Range/Units 21:13 WBC (4.8-10.8) X10*3/uL RBC (4.20-5.50) X10*6/uL Hgb (12.0-16.0) g/dl Hct (37-47) % MCV (80-98) fL MCH (27.0-33.0) pg MCHC (31.0-35.0) g/dl RDW (11.0-16.0) % Plt Count (160-400) X10*3/uL MPV (9.4-12.3) fL Immature Gran % (Auto) (0.0-0.4) % Neut % (Auto) (45-73) % Lymph % (Auto) (20-40) % Citrus % (Auto) (2-11) % Eos % (Auto) (0-4) % Baso % (Auto) (0-2) % Lymph # (Auto) (1.2-4.9) X10*3/uL Citrus # (Auto) (0.1-1.2) X10*3/uL Eos # (Auto) (0.0-0.4) X10*3/uL Baso # (Auto) (0.0-0.2) X10*3/uL Abs Immat Gran (auto) (0.00-0.03) X10*3/uL Absolute Neuts (auto) (2.0-8.3) X10*3/uL Absolute Nucleated RBC (0.0-0.012) X10*3/uL Nucleated RBC % (auto) (0.0-0.2) /100WBC Sodium (135-145) mmol/L Potassium (3.3-5.1) mmol/L Chloride (96-108) mmol/L Carbon Dioxide (22-29) mmol/L Anion Gap (12-20) BUN (9-16) mg/dL Creatinine (0.5-1.4) mg/dL Estim Creat Clear Calc Estimated GFR Random Glucose (60-115) mg/dL Calcium (8.4-10.2) mg/dL Total Bilirubin (0.0-1.0) mg/dL Direct Bilirubin (0.0-0.5) mg/dL AST (5-31) U/L ALT (0-31) U/L Alkaline Phosphatase (39-117) U/L Total Protein (6.5-8.0) g/dL Albumin (3.5-5.0) g/dL Lipase (8-78) U/L Urine Color YELLOW Urine Appearance CLEAR Urine pH 6.0 (5.0-8.0) Ur Specific [place] >= 1.030 H (1.005-1.025) Urine Protein NEG (NEG-TRACE) MG/DL Urine Glucose (UA) NEG (NEG) MG/DL Urine Ketones 5 (NEG) MG/DL Urine Blood NEG (NEG) Urine Nitrite NEG (NEG) Ur Leukocyte Esterase NEG (NEG) Discharge Plan Discharge Clinical Impression: Diverticulitis Patient Disposition: Home, Self-Care Instructions: Diverticulitis (ED) Additional Instructions: Drink plenty of fluids have light food advance as tolerated Take antibiotics as prescribed. Report to the ER/PCP if increased pain/fever /vomiting Prescriptions: New cefuroxime axetil 500 mg tablet 500 mg PO BID 10 Days Qty: 20 RF: 0 metronidazole [Flagyl] 500 mg tablet 500 mg PO BID Qty: 20 RF: 0 dicyclomine 20 mg tablet 20 mg PO TID PRN (Reason: abdominal pain) Qty: 20 RF: 0 No Action hydrocortisone [Procto-Med HC] 2.5 % cream with perineal applicator 1 appl [place] BID-QID PRN (Reason: hemorrhoids) Qty: 30 RF: 3 albuterol sulfate 90 mcg/actuation HFA aerosol inhaler 2 puff inhalation Q4-6H PRN (Reason: shortness of breath or wheezing) Qty: 18 RF: 0 pantoprazole 40 mg tablet,delayed release (DR/EC) 40 mg PO QAM Qty: 30 RF: 5 docusate sodium [Colace] 100 mg capsule 200 mg PO BEDTIME Qty: 60 RF: 5 Citrucel 500 mg tablet 500 mg PO BID Qty: 60 RF: 5 clotrimazole 1 % cream 1 applic topical BID RF: 0 fluticasone propionate 50 mcg/actuation spray,suspension 1 spray intranasal BID RF: 0 diphenhydramine HCl 25 mg tablet 25 mg PO BEDTIME PRN (Reason: allergy) RF: 0 pantoprazole 40 mg tablet,delayed release (DR/EC) 40 mg PO DAILY RF: 0 Incruse Ellipta 62.5 mcg/actuation blister with device 62.5 inh inhalation DAILY RF: 0 cholecalciferol (vitamin D3) 50 mcg (2,000 unit) capsule 50 mcg PO BID RF: 0 montelukast 10 mg tablet 10 mg PO DAILY RF: 0 levothyroxine 100 mcg tablet 100 mcg PO DAILY RF: 0 cetirizine 10 mg tablet 10 mg PO DAILY RF: 0 citalopram 40 mg tablet 40 mg PO DAILY RF: 0 clonazepam 0.5 mg tablet 0.5 mg PO DAILY PRN (Reason: anxiety) RF: 0 budesonide 0.5 mg/2 mL suspension for nebulization 0.5 mg inhalation .q 6 h RF: 0 acetaminophen 650 mg tablet extended release 650 mg PO Q8H PRN (Reason: pain) RF: 0 Interventions: ED Discharge Assessment Last Done: 01/21/21 01:02 Discharge Date/Time: 01/21/21 01:02 [facility] Past Medical History Medical History Acid reflux Acute anxiety Allergic rhinitis Anxiety Asthma Asthma dependent on inhaled steroids COPD (chronic obstructive pulmonary disease) COPD exacerbation Depression Diverticulosis large intestine w/o perforation or abscess w/o bleeding Hypothyroid Irritable bowel Surgical History History of mandibular surgery Hx of cholecystectomy Hx of tubal ligation Family History Family History Maternal Aunt Pancreatic cancer Maternal Grandmother Diabetes Stroke Maternal Grandfather Diabetes Mother COPD (chronic obstructive pulmonary disease) Father Respiratory failure Social History Social History Household Members: Spouse Alcohol intake: former Smoking Status: Unknown if ever smoked Advance Directives: No Advance Directives Information Provided: No
[2021-01-20] MEDS: ondansetron HCL 4 MG/2 ML VIAL IVPUSH (21:17)
[2021-01-20] MEDS: Morphine Sulfate 4 MG/ML CARTRIDGE IVPUSH (21:17)
[2021-01-20] MEDS: 0.9 % Sodium Chloride 1,000 ML 999 ML IVCONT (21:18)
[2021-01-20 21:20] LABS: MANUAL DIFF FLAG NO
[2021-01-20 21:22] LABS: Basophils Absolute Auto 0.1 X10*3/uL (0.0-0.2); Basophils Percent Auto 0.5 % (0-2); Eosinophils Absolute Auto 0.3 X10*3/uL (0.0-0.4); Eosinophils Percent Auto 2.7 % (0-4); Hematocrit 37.9 % (37-47); Hemoglobin 11.8 g/dl (12.0-16.0); Imm Gran Abs Auto 0.02 X10*3/uL (0.00-0.03); Imm Gran Pct Auto 0.2 % (0.0-0.4); Lymphocytes Absolute Auto 2.5 X10*3/uL (1.2-4.9); Lymphocytes Percent Auto 26.8 % (20-40); Mean Corpuscular HGB Conc 31.1 g/dl (31.0-35.0); Mean Corpuscular Hemoglobin 27.1 pg (27.0-33.0); Mean Corpuscular Volume 87.1 fL (80-98); Mean Platelet Volume 10.3 fL (9.4-12.3); Monocytes Absolute Auto 0.7 X10*3/uL (0.1-1.2); Monocytes Percent Auto 7.3 % (2-11); Neutrophils Absolute Auto 5.8 X10*3/uL (2.0-8.3); Neutrophils Percent Auto 62.5 % (45-73); Platelet Count 239 X10*3/uL (160-400); Red Blood Count 4.35 X10*6/uL (4.20-5.50); White Blood Count 9.3 X10*3/uL (4.8-10.8)
[2021-01-20 21:35] LABS: Glucose Urine UA NEG (NEG); Leukocyte Esterase Urine NEG (NEG); Nitrite Urine NEG (NEG); Specific Gravity - Urine >= 1.030 (1.005-1.025); Urine Blood NEG (NEG); Urine Ketones 5 MG/DL (NEG); Urine Protein NEG (NEG-TRACE)
[2021-01-20 21:36] LABS: Appearance Urine CLEAR; Color Urine YELLOW
[2021-01-20 21:43] LABS: Alanine Aminotransferase 14 U/L (0-31); Albumin Level 4.1 g/dL (3.5-5.0); Alkaline Phosphatase 184 U/L (39-117); Anion Gap 13 (12-20); Aspartate Amino Transferase 16 U/L (5-31); Bilirubin Direct 0.2 mg/dL (0.0-0.5); Bilirubin Total 0.6 mg/dL (0.0-1.0); Blood Urea Nitrogen 11 mg/dL (9-16); Calcium 8.8 mg/dL (8.4-10.2); Carbon Dioxide 28 mmol/L (22-29); Chloride 103 mmol/L (96-108); Creatinine Clr Calc Pharmacy 57.2; Estimated Glomerular Filt Rate 52; Glucose Random 82 mg/dL (60-115); Lipase 10 U/L (8-78); Sodium 140 mmol/L (135-145)
[2021-01-20 22:31] VITALS: BP 157/84; PULSE 73; RESP 16; O2SAT 98
[2021-01-21] MEDS: metroNIDAZOLE 500 MG TABLET PO (00:05)
[2021-01-21] MEDS: cefTRIAXone sodium 1 GM in 0.9 % Sodium Chloride 50 ML IV (00:05)
== END 2021-01-21 01:02 | disposition home or self-care (01) ==
PROVIDERS: Emergency Provider Internal Medicine; PCP Pediatrics
DX: K57.32 Diverticulitis of large intestine without perforation or abscess without bleeding (principal); R10.32 Left lower quadrant pain; Z79.899 Other long term (current) drug therapy; Z87.891 Personal history of nicotine dependence
CPT/HCPCS: 36415; 74176; 80048; 80076; 81003; 83690; 85025; 96361; 96365; 96375; 99284; J0696; J2270; J2405

== ENCOUNTER → 2021-01-23 09:00 | Outpatient (BNVA) | payer MEDICARE, MEDICAID, OTHER, SELFPAY | PROVIDERS: PCP Pediatrics; Visit Provider Physician Assistant | DX: Z13.89 Encounter for screening for other disorder (principal) | CPT/HCPCS: Q3014 ==

== ENCOUNTER → 2021-02-20 11:43 | Outpatient (BNVA) | payer MEDICARE, OTHER, SELFPAY | PROVIDERS: PCP Pediatrics; Visit Provider Physician Assistant | CPT/HCPCS: Q3014 ==

== ENCOUNTER 2021-02-24 18:47 | Emergency (ER) | payer MEDICARE, OTHER, SELFPAY ==
--- NOTE | ~2021-02-24 | XR_ITS ---
EXAMINATION: XR KNEE, RIGHT CLINICAL INFORMATION: Pain status post fall COMPARISON: None TECHNIQUE: Four views of the right knee. FINDINGS: Bones and soft tissues are normal. No fracture or joint effusion. Alignment is anatomic. Joint spaces are well maintained. No abnormal soft tissue calcification. XR/XR knee RT 2V IMPRESSION: Normal right knee.
--- NOTE | ~2021-02-24 | XR_ITS ---
EXAMINATION: XR CHEST CLINICAL INFORMATION: Shortness of breath COMPARISON: 10/29/2020 TECHNIQUE: 2 views of the chest were obtained. FINDINGS: Lungs are clear. No focal consolidation or mass. Normal pulmonary vascularity. No pleural effusion or pneumothorax. Normal heart size. No acute osseous abnormality. XR/XR chest 2V IMPRESSION: No acute pulmonary disease.
--- NOTE | ~2021-02-24 | US_ITS ---
EXAMINATION: US VENOUS ULTRASOUND WITH DOPPLER LOWER EXTREMITY, RIGHT CLINICAL INFORMATION: Right lower extremity pain and swelling COMPARISON: DVT study left lower extremity 04/28/2019 TECHNIQUE: Ultrasound of the deep veins is performed from the hip to the calf with compression sonography and color and pulse Doppler assessment. Spectral analysis with color-flow imaging is performed. FINDINGS: There is normal venous compression and respiratory variation and augmented flow. The visualized common femoral vein, superficial femoral vein, profunda femoral vein, popliteal vein, and the trifurcation region shows no evidence of deep venous thrombosis. There is no significant popliteal fossa cyst. If the patient's symptoms persist, followup ultrasound in 5 days 7 days might be of value to exclude proximal propagation from a non-visualized calf vein. US/US venous duplex LE RT IMPRESSION: No DVT demonstrated in the right lower extremity.
[2021-02-24 19:20] VITALS: BP 128/58; PULSE 87; RESP 20; TEMP 37.1; O2SAT 95; BMI 33.3
--- NOTE | 2021-02-24 20:25 | PC.NURSE ---
PT HERE FOR RIGHT KNEE PAIN. PT ALSO STATED OXYGEN WAS 92-94 TODAY. LUNGS CLEAR DIM RLL. TALKING IN FULL SENTENCES. NO SOB NOTED.
--- NOTE | 2021-02-24 20:33 | ED.GENADULT ---
HPI - General Adult General Chief complaint: General Medical Stated complaint: Foot pain/Asthma Source: patient Mode of arrival: ambulatory Limitations: no limitations History of Present Illness HPI narrative: 65-year-old female with past medical history of asthma, COPD, GERD, and IBS presents with right knee pain, right leg swelling and burning, and shortness of breath not relieved by her asthma medications. Patient states the last time she used her albuterol was about 4:00 p.m. with poor effect. She states that she has had several days of right knee pain with right leg swelling and feels a burning constant pain every time she starts to ambulate. She does not describe any pain on inspiration, palpitations, fevers, chills, chest pain, chest pressure, abdominal pain, abdominal distention, dysuria, hematuria, nausea, vomiting, diarrhea, constipation, melena, hematochezia, or any other concerning symptoms. Related Data Home Medications Medication Instructions Recorded Confirmed cetirizine 10 mg tablet 10 mg PO DAILY 07/30/20 01/23/21 cholecalciferol (vitamin D3) 50 50 mcg PO BID 07/30/20 01/23/21 mcg (2,000 unit) capsule citalopram 40 mg tablet 40 mg PO DAILY 07/30/20 01/23/21 clonazepam 0.5 mg tablet 0.5 mg PO DAILY PRN 07/30/20 01/23/21 clotrimazole 1 % topical cream 1 applic TOPICAL BID 07/30/20 01/23/21 diphenhydramine HCl 25 mg tablet 25 mg PO BEDTIME PRN 07/30/20 01/23/21 fluticasone propionate 50 1 spray INTRANASAL BID 07/30/20 01/23/21 mcg/actuation nasal spray,suspension levothyroxine 100 mcg tablet 100 mcg PO DAILY 07/30/20 01/23/21 montelukast 10 mg tablet 10 mg PO DAILY 07/30/20 01/23/21 pantoprazole 40 mg tablet,delayed 40 mg PO DAILY 07/30/20 01/23/21 release umeclidinium 62.5 mcg/actuation 62.5 inh INHALATION DAILY 07/30/20 01/23/21 blister powder for inhalation acetaminophen 650 mg 650 mg PO Q8H PRN 10/07/20 01/23/21 tablet,extended release budesonide 0.5 mg/2 mL suspension 0.5 mg INHALATION .q 6 h ml 10/07/20 01/23/21 for nebulization Previous Rx's Medication Instructions Recorded albuterol sulfate 2 puff INHALATION Q4-6H PRN #18 g 08/14/20 docusate sodium 100 mg capsule 200 mg PO BEDTIME #60 cap 11/26/20 methylcellulose (laxative) 500 mg 500 mg PO BID #60 tab 11/26/20 tablet pantoprazole 40 mg tablet,delayed 40 mg PO QAM #30 tab 11/26/20 release hydrocortisone 2.5 % topical cream 1 appl [place] BID-QID PRN #30 g 01/02/21 with perineal applicator metronidazole [Flagyl] 500 mg PO BID #20 tab 01/20/21 Allergies Allergy/AdvReac Type Severity Reaction Status Date / Time animal dander Allergy Mild SHORTNESS Verified 02/24/21 19:19 OF BREATH ciprofloxacin [From Cipro] Allergy Mild RASH Verified 02/24/21 19:19 vancomycin [Vancomycin] Allergy Mild SHORTNESS Verified 02/24/21 19:19 OF BREATH amoxicillin [AMOXICILLIN] Allergy Unknown RASH Verified 02/24/21 19:19 Penicillins [PENICILLINS] Allergy Unknown RASH Verified 02/24/21 19:19 Review of Systems Review of Systems: Constitutional: No Fever, No Chills ENT/Mouth: No Hoarseness, No sore throat, No Rhinorrhea Eyes: No Redness, No Discharge, No Vision Changes Cardiovascular: No Chest Pain, positive SOB, positive Dyspnea on Exertion, No Edema Respiratory: positive Cough, No Sputum, positive Wheezing, Gastrointestinal: No Nausea, No Vomiting, No Diarrhea, No abdominal Pain Genitourinary: No Dysuria, No Hematuria Musculoskeletal: Positive right leg pain and swelling, No Myalgias Skin: No rash Neuro: No Weakness, No Numbness, No Headache Psych: No anxiety, depression Heme/Lymph: No Bruising, No Bleeding Endocrine: No Polyuria, No Polydipsia Yes all other systems are reviewed and are negative [facility] Past Medical History Attestation statement: The following information was validated with the patient. Source: old records reviewed Medical History Acid reflux Acute anxiety Allergic rhinitis Anxiety Asthma Asthma dependent on inhaled steroids COPD (chronic obstructive pulmonary disease) COPD exacerbation Depression Diverticulosis large intestine w/o perforation or abscess w/o bleeding Diverticulosis of colon Hypothyroid Irritable bowel Tubular adenoma Surgical History H/O esophagogastroduodenoscopy (~12/2018) History of colonoscopy with polypectomy (~12/2018) History of mandibular surgery Hx of cholecystectomy Hx of tubal ligation Family History Family History Maternal Aunt Pancreatic cancer Maternal Grandmother Diabetes Stroke Maternal Grandfather Diabetes Mother COPD (chronic obstructive pulmonary disease) Father Respiratory failure Social History Social History Household Members: Spouse Alcohol intake: former Smoking Status: Never smoker Advance Directives: No Advance Directives Information Provided: No Current occupational status: retired Physical Exam Vital Signs: Vital Signs: Last Vital Signs Temp 98.8 F 02/24/21 19:20 Pulse 75 02/24/21 21:43 Resp 17 02/24/21 21:43 BP 120/60 02/24/21 21:43 Pulse Ox 96 02/24/21 21:43 Body Mass Index 33.3 Appearance: Alert. Oriented X3. No acute distress. Eyes: Pupils equal, round and reactive to light. ENT: Pharynx normal. Neck: Normal inspection. Neck supple. CVS: Normal heart rate and rhythm. Pulses normal. Respiratory: No respiratory distress. Bilateral lung sounds with expiratory reasoning, right greater than the left. Abdomen: Soft and nontender. Skin: Skin warm and dry. Normal skin color. Normal skin turgor. Extremities: Full range of motion to all extremities, strength 5/5, I do not appreciate any significant right lower extremity swelling Neuro: No motor deficit. No sensory deficit. Cranial nerves 2-12 intact Course Course Course Narrative: 65-year-old female presents with shortness of breath not relieved by her asthma regimen, right leg pain and swelling. chest x-ray and x-ray of the right knee are negative, drawn while she was in the waiting room. Will order DVT study as patient does report swelling to the right lower extremity. At the time of my examination, patient is resting comfortably, even unlabored respiration, speaking in complete sentences, does have some expiratory wheezing to the upper lobes right greater than the left, no notable swelling or discoloration to the right lower extremity, and has full range of motion. It is interesting to note that patient presented with a family member that needed evaluation, shortly after family member was brought into the emergency department patient reported shortness of breath and extremity pain. DVT study is negative. Plan of care is to discharge home with recommendation to follow-up with pulmonary. Patient verbalized understanding of and agrees to plan of care discharge home Medical Decision Making Differential Diagnosis Differential Diagnosis: Asthma exacerbation, DVT, right knee strain, Mckenzie cyst, effusion Medical Records Medical records reviewed: Yes I reviewed the patient's medical records. Lab Data Lab results reviewed: Yes I reviewed the patient's lab results. Discharge Plan Discharge Clinical Impression: Asthma, Acute pain of right knee, Knee swelling Patient Disposition: Home, Self-Care Instructions: Asthma (ED) Additional Instructions: You were evaluated for multiple symptoms. For asthma exacerbation was provided you a dose of prednisone as well as a DuoNeb. You may consider following up with your manager combination for further workup. For right knee pain and swelling, your x-rays are negative for acute findings and her DVT study was negative. Thank you for choosing this emergency department for evaluation. Please follow-up with primary care physician as needed. Return to the emergency department for any new, concerning, or worsening symptoms. Prescriptions: No Action hydrocortisone [Procto-Med HC] 2.5 % cream with perineal applicator 1 appl [place] BID-QID PRN (Reason: hemorrhoids) Qty: 30 RF: 3 albuterol sulfate 90 mcg/actuation HFA aerosol inhaler 2 puff inhalation Q4-6H PRN (Reason: shortness of breath or wheezing) Qty: 18 RF: 0 metronidazole [Flagyl] 500 mg tablet 500 mg PO BID Qty: 20 RF: 0 pantoprazole 40 mg tablet,delayed release (DR/EC) 40 mg PO QAM Qty: 30 RF: 5 docusate sodium [Colace] 100 mg capsule 200 mg PO BEDTIME Qty: 60 RF: 5 Citrucel 500 mg tablet 500 mg PO BID Qty: 60 RF: 5 clotrimazole 1 % cream 1 applic topical BID RF: 0 fluticasone propionate 50 mcg/actuation spray,suspension 1 spray intranasal BID RF: 0 diphenhydramine HCl 25 mg tablet 25 mg PO BEDTIME PRN (Reason: allergy) RF: 0 pantoprazole 40 mg tablet,delayed release (DR/EC) 40 mg PO DAILY RF: 0 Incruse Ellipta 62.5 mcg/actuation blister with device 62.5 inh inhalation DAILY RF: 0 cholecalciferol (vitamin D3) 50 mcg (2,000 unit) capsule 50 mcg PO BID RF: 0 montelukast 10 mg tablet 10 mg PO DAILY RF: 0 levothyroxine 100 mcg tablet 100 mcg PO DAILY RF: 0 cetirizine 10 mg tablet 10 mg PO DAILY RF: 0 citalopram 40 mg tablet 40 mg PO DAILY RF: 0 clonazepam 0.5 mg tablet 0.5 mg PO DAILY PRN (Reason: anxiety) RF: 0 budesonide 0.5 mg/2 mL suspension for nebulization 0.5 mg inhalation .q 6 h RF: 0 acetaminophen 650 mg tablet extended release 650 mg PO Q8H PRN (Reason: pain) RF: 0 Interventions: ED Discharge Assessment Last Done: 02/24/21 23:02 Discharge Date/Time: 02/24/21 23:04
[2021-02-24] MEDS: Albuterol/Iprat 2.5/0.5MG 3 ML AMPUL.NEB INHALE (21:02)
[2021-02-24 21:03] VITALS: PULSE 87; O2SAT 95
[2021-02-24] MEDS: predniSONE 20 MG TABLET 40 MG PO (21:42)
[2021-02-24 21:43] VITALS: BP 120/60; PULSE 75; RESP 17; O2SAT 96
== END 2021-02-24 23:04 | disposition home or self-care (01) ==
PROVIDERS: Emergency Provider Internal Medicine; PCP Pediatrics
DX: J45.909 Unspecified asthma, uncomplicated (principal); M25.561 Pain in right knee; R60.0 Localized edema; M25.461 Effusion, right knee; Z79.899 Other long term (current) drug therapy
CPT/HCPCS: 71046; 73560; 93971; 94640; 99284

== ENCOUNTER 2021-03-03 08:07 | Outpatient (REF) | payer MEDICARE, OTHER, SELFPAY ==
--- NOTE | ~2021-03-03 | XR_ITS ---
EXAMINATION: XR KNEE, RIGHT CLINICAL INFORMATION: Right knee pain. COMPARISON: 2 views right knee 02/24/2021 TECHNIQUE: Single sunrise view of the right knee. FINDINGS: The patellofemoral compartment joint is maintained normal. There is a small lateral patellar spur. The soft tissues are normal. XR/XR knee RT 2V IMPRESSION: Small right lateral patellar spur. No visible acute fracture or dislocation seen.
== END 2021-03-03 08:08 | disposition home or self-care (01) ==
LOC: HO.HOSX 08:07
PROVIDERS: Visit Provider Physician Assistant
DX: M22.41 Chondromalacia patellae, right knee (principal)
CPT/HCPCS: 20610; 73560; 99202; J1040

== ENCOUNTER 2021-04-02 10:57 | Outpatient (RCR) | payer MEDICARE, OTHER, SELFPAY ==
--- NOTE | 2021-04-02 11:56 | MHC.PT.EP ---
[facility] [place] Office [place] Office [place] Office [address] Yan Solitario [address] [phone] F: [phone] F: [phone] F: [phone] F: [phone] Physical Therapy Plan of Care Date of Evaluation: Date of Surgery: NA Diagnosis: Chondromalacia patellae, R knee Assessment: 66 year old female with h/o chronic knee was referred for chondromalacia patella, R knee . Pt reports having knee pain for over 10 years which has gotten worse with time. She had a cortisone shot about 3 weeks back and has noted decrease in pain with it. On PT examination she presented with 5/10 pain with weight bearing activities, decreased ROM, decreased muscle strength, altered posture and gait. She would benefit from skilled PT to address the aforementioned impairments so as to improve tolerance to weight bearing activities and return to PLOF. Frequency and Duration: The patient will be seen 2/week for 6 weeks. Short Term Goals: 1. Pt will have 50% decrease in pain which will help her sleep through the night and wake up in the morning without difficulty in 3 weeks. 2. Pt will be able to move her knee through full range of motion without pain which will enable her to perform sit to stand transition without pain in 4 weeks. Public Health Veterinarian Goals: 1. Pt will demonstrate an increase in muscle strength by 1 grade which will enable her to stand, walk and negotiate stairs for extended periods of time in 5 weeks. 2. Pt will be independent with all HEPS for symptom management and maintenance following d/c in 6 weeks. Treatment Plan: Modalities to reduce pain, spasms and effusion. Manual therapy to restore motion and function. Therapeutic exercise to improve strength and flexibility. Neuromuscular re-education for posture and balance. Therapeutic activities to return to functional activities of daily living. Electronically signed by: Bonny Lopez PT DPT Please sign and return to therapist. Thank you for your referral.
--- NOTE | 2021-04-18 11:36 | MHC.PT.DC ---
[facility] [place] Office [place] Office [place] Office [address] Yan Solitario [address] [phone] F: [phone] F: [phone] F: [phone] F: [phone] Physical Therapy Discharge Report Diagnosis: Chondromalacia patellae, R knee Date of Surgery: NA Date of Evaluation: 04/02/21 Date of Discharge: 04/18/21 Treatments to Date: 1 Cancellations to Date: 1 No Shows to Date: 2 Discharge Status: Visit Non-compliance Discharge Summary: Nicol has no showed for 2 appointments and canceled one appointment since her evaluation. She has therefore been discharged from therapy. Electronically signed by: Bonny Lopez PT DPT Please sign and return to therapist. Thank you for your referral.
== END 2021-04-18 11:36 | disposition other institution (70) ==
LOC: HO.PT 10:57
PROVIDERS: Visit Provider Physician Assistant
DX: M22.41 Chondromalacia patellae, right knee (principal)
CPT/HCPCS: 97112; 97161

== ENCOUNTER 2021-04-04 13:49 | Outpatient (REF) | payer MEDICARE, OTHER, SELFPAY ==
[2021-04-04 14:49] LABS: MANUAL DIFF FLAG NO
[2021-04-04 14:51] LABS: Basophils Absolute Auto 0.1 X10*3/uL (0.0-0.2); Basophils Percent Auto 0.7 % (0-2); Eosinophils Absolute Auto 0.1 X10*3/uL (0.0-0.4); Eosinophils Percent Auto 1.2 % (0-4); Hematocrit 36.2 % (37-47); Hemoglobin 11.4 g/dl (12.0-16.0); Imm Gran Abs Auto 0.03 X10*3/uL (0.00-0.03); Imm Gran Pct Auto 0.3 % (0.0-0.4); Lymphocytes Absolute Auto 2.2 X10*3/uL (1.2-4.9); Lymphocytes Percent Auto 20.4 % (20-40); Mean Corpuscular HGB Conc 31.5 g/dl (31.0-35.0); Mean Corpuscular Hemoglobin 27.7 pg (27.0-33.0); Mean Corpuscular Volume 88.1 fL (80-98); Mean Platelet Volume 11.5 fL (9.4-12.3); Monocytes Absolute Auto 0.8 X10*3/uL (0.1-1.2); Monocytes Percent Auto 7.1 % (2-11); Neutrophils Absolute Auto 7.4 X10*3/uL (2.0-8.3); Neutrophils Percent Auto 70.3 % (45-73); Platelet Count 236 X10*3/uL (160-400); Red Blood Count 4.11 X10*6/uL (4.20-5.50); Red Cell Distribution Width 15.4 % (11.0-16.0); White Blood Count 10.5 X10*3/uL (4.8-10.8)
[2021-04-04 15:09] LABS: Alanine Aminotransferase 16 U/L (0-31); Albumin Level 3.9 g/dL (3.5-5.0); Alkaline Phosphatase 190 U/L (39-117); Anion Gap 11 (12-20); Aspartate Amino Transferase 15 U/L (5-31); Bilirubin Total 0.5 mg/dL (0.0-1.0); Blood Urea Nitrogen 16 mg/dL (9-16); C Reactive Protein 1.22 mg/dL (< or = 0.50); Carbon Dioxide 27 mmol/L (22-29); Chloride 107 mmol/L (96-108); Estimated Glomerular Filt Rate 48; Glucose Random 100 mg/dL (60-115); Potassium 4.4 mmol/L (3.3-5.1); Rheumatoid Factor < 15.0 IU/mL (<15.0); Sodium 141 mmol/L (135-145); Total Protein 6.7 g/dL (6.5-8.0)
[2021-04-04 15:42] LABS: Erythrocyte Sedimentation Rate 18 MM/HR (0-20)
[2021-04-05 06:37] LABS: Lyme Abs Screen <0.90 index
[2021-04-07 12:31] LABS: Cyclic Citrullinated Peptide <16 UNITS
[2021-04-09 20:06] LABS: Vitamin D 25-OH, D2 <4 ng/mL; Vitamin D 25-OH, D3 41 ng/mL; Vitamin D 25-OH, Total 41 ng/mL (30-100)
== END 2021-04-04 13:50 | disposition home or self-care (01) ==
LOC: HO.LAB 13:49
PROVIDERS: PCP Pediatrics; Visit Provider Student in an Organized Health Care Education/Training Program
DX: M25.50 Pain in unspecified joint (principal)
CPT/HCPCS: 36415; 80053; 82306; 84443; 85025; 85652; 86140; 86200; 86431; 86617; 86618; 99202

== ENCOUNTER 2021-04-20 21:36 | Emergency (ER) | payer MEDICARE, OTHER, SELFPAY ==
--- NOTE | ~2021-04-20 | XR_ITS ---
EXAMINATION: XR LUMBOSACRAL SPINE CLINICAL INFORMATION: Low back pain radiating down left lower extremity. History of a fall COMPARISON: CT scan abdomen pelvis 01/20/2021. Lumbar spine 04/28/2019. TECHNIQUE: Three views of the lumbosacral spine. FINDINGS: There are 4 nonrib-bearing lumbar vertebrae. There is mild loss of height of the lowest lumbar vertebrae (L4). This is unchanged since CAT scan 01/20/2021. There is mild degenerative narrowing of the L3-L4 and L4-L5 lumbar discs. Mild degenerative lipping at the anterior endplates of lumbar vertebrae. Mild facet joint arthrosis of lower lumbar spine. Surgical clips over quadrant of abdomen. Moderate volume of stool in colon. Nonobstructive bowel pattern. No radiopaque urinary calculus. XR/XR lumbar spine 2-3V IMPRESSION: 1. Mild loss of height of L5 vertebrae which is chronic unchanged since prior studies. No acute osseous abnormality. 2. Mild degenerative spondylosis of lumbar spine.
[2021-04-20 21:45] VITALS: BP 133/70; PULSE 88; RESP 18; TEMP 36.7; O2SAT 96; BMI 31.7
--- NOTE | 2021-04-20 23:27 | ED.BACK ---
HPI - Back Pain/Injury General Chief Complaint: Back Pain/Injury Stated Complaint: back and leg pain Time Seen by Provider: 04/20/21 22:54 Source: patient and family Mode of arrival: ambulatory Limitations: no limitations History of Present Illness HPI Narrative: 66 y/o female with history of arthritis, COPD, anxiety, IBS, asthma, who presents to the ER with left lower back pain that radiates down her left leg that started today when she woke up. She states the pain is so bad she couldn't walk well today. She denies any recent injury or trauma. She has a history of multiple joint pains but never had pain in her back like this before. She denies any weakness or numbness in her legs, just pain shooting down the back of her left leg. No improvement with Tylenol or Tramadol at home. She denies incontinence, paresthesias, urinary symptoms. MD elicited complaint: back pain Pertinent past history: prior back pain Onset (ago): day(s) Timing: constant Severity: severe Similar Symptoms Previously: Yes Quality: sharp and aching Location: left lower back Radiation: left leg below the knee Exacerbating factors: movement and walking Relieving factors: immobilization Context: unknown Associated symptoms: denies other symptoms Work related injury: No Related Data Home Medications Medication Instructions Recorded Confirmed cetirizine 10 mg tablet 10 mg PO DAILY 07/30/20 01/23/21 cholecalciferol (vitamin D3) 50 50 mcg PO BID 07/30/20 01/23/21 mcg (2,000 unit) capsule citalopram 40 mg tablet 40 mg PO DAILY 07/30/20 01/23/21 clonazepam 0.5 mg tablet 0.5 mg PO DAILY PRN 07/30/20 01/23/21 clotrimazole 1 % topical cream 1 applic TOPICAL BID 07/30/20 01/23/21 diphenhydramine HCl 25 mg tablet 25 mg PO BEDTIME PRN 07/30/20 01/23/21 fluticasone propionate 50 1 spray INTRANASAL BID 07/30/20 01/23/21 mcg/actuation nasal spray,suspension levothyroxine 100 mcg tablet 100 mcg PO DAILY 07/30/20 01/23/21 montelukast 10 mg tablet 10 mg PO DAILY 07/30/20 01/23/21 pantoprazole 40 mg tablet,delayed 40 mg PO DAILY 07/30/20 01/23/21 release umeclidinium 62.5 mcg/actuation 62.5 inh INHALATION DAILY 07/30/20 01/23/21 blister powder for inhalation acetaminophen 650 mg 650 mg PO Q8H PRN 10/07/20 01/23/21 tablet,extended release budesonide 0.5 mg/2 mL suspension 0.5 mg INHALATION .q 6 h ml 10/07/20 01/23/21 for nebulization Previous Rx's Medication Instructions Recorded albuterol sulfate 2 puff INHALATION Q4-6H PRN #18 g 08/14/20 docusate sodium 100 mg capsule 200 mg PO BEDTIME #60 cap 11/26/20 methylcellulose (laxative) 500 mg 500 mg PO BID #60 tab 11/26/20 tablet pantoprazole 40 mg tablet,delayed 40 mg PO QAM #30 tab 11/26/20 release hydrocortisone 2.5 % topical cream 1 appl [place] BID-QID PRN #30 g 01/02/21 with perineal applicator metronidazole [Flagyl] 500 mg PO BID #20 tab 01/20/21 meloxicam 15 mg tablet 15 mg PO DAILY 30 Days #30 tab 03/03/21 tramadol 50 mg tablet 50 mg PO DAILY #30 tab 04/04/21 cyclobenzaprine 10 mg PO TID PRN #7 tab 04/21/21 ibuprofen 600 mg PO Q8H PRN #20 tab 04/21/21 lidocaine [Lidoderm] 1 patch TOPICAL DAILY #15 ea 04/21/21 oxycodone 5 mg PO Q8H PRN #6 tab 04/21/21 Allergies Allergy/AdvReac Type Severity Reaction Status Date / Time animal dander Allergy Mild SHORTNESS Verified 04/04/21 13:53 OF BREATH ciprofloxacin [From Cipro] Allergy Mild RASH Verified 04/04/21 13:53 vancomycin [Vancomycin] Allergy Mild SHORTNESS Verified 04/04/21 13:53 OF BREATH amoxicillin [AMOXICILLIN] Allergy Unknown RASH Verified 04/04/21 13:53 Penicillins [PENICILLINS] Allergy Unknown RASH Verified 04/04/21 13:53 Review of Systems Review of Systems: Constitutional: No Fever, No Chills Cardiovascular: No Chest Pain, No SOB Respiratory: No Cough, No Sputum Gastrointestinal: No Nausea, No Vomiting, No Diarrhea, No abdominal Pain Musculoskeletal: + joint pain, + Myalgias Skin: No Skin Lesions, No rash Neuro: No Weakness, No Numbness Heme/Lymph: No Bruising, No Lymphadenopathy PMFSH Past Medical History Attestation statement: The following information was validated with the patient. Medical History Acid reflux Acute anxiety Allergic rhinitis Anxiety Asthma Asthma dependent on inhaled steroids COPD (chronic obstructive pulmonary disease) COPD exacerbation Depression Diverticulosis large intestine w/o perforation or abscess w/o bleeding Diverticulosis of colon Hypothyroid Irritable bowel Tubular adenoma Tubular adenoma Surgical History H/O esophagogastroduodenoscopy (~12/2018) History of colonoscopy with polypectomy (~12/2018) History of mandibular surgery Hx of cholecystectomy Hx of tubal ligation Family History Family History Maternal Aunt Pancreatic cancer Maternal Grandmother Diabetes Stroke Maternal Grandfather Diabetes Mother COPD (chronic obstructive pulmonary disease) Father Respiratory failure Social History Social History Household Members: Spouse Household Members Other:: Lives with an 11-year-old granddaughter Alcohol intake: never Patient Tobacco Use Status: Never used Tobacco Advance Directives: No Advance Directives Information Provided: No Current occupational status: retired Physical Exam Vital Signs: Vital Signs: Last Vital Signs Temp 98.0 F 04/20/21 21:45 Pulse 88 04/20/21 21:45 Resp 18 04/20/21 21:45 BP 133/70 04/20/21 21:45 Pulse Ox 96 04/20/21 21:45 Body Mass Index 31.7 Appearance: Alert. Oriented X3. No acute distress. HEENT: normal inspection CVS: Normal heart rate and rhythm. Pulses normal. Respiratory: No respiratory distress. Skin: Skin warm and dry. Normal skin color. Normal skin turgor. No rashes. Back: low left lumbar tenderness with soft tissue spasm, no spinal tenderness. no skin changes. Extremities: positive straight leg raise on the left Neuro: Oriented X 3. No motor deficit. No sensory deficit. Course Course Course Narrative: 66 y/o female presenting with non-traumatic left low back pain that radiates down her left leg x1 day. Clinical presentation is consistent with sciatica. Will treat with NSAID and oxycodone and reassess. No red flag symptoms of LBP> Reevaluation(s) Reevaluation #1: XR showing stable degenerative changes. No acute injuries. She feels much better after meds. She is stable for discharge home with symptomatic management. She will follow up with her PCP and try to get back into PT. Discharge Plan Discharge Clinical Impression: Sciatica Patient Disposition: Home, Self-Care Instructions: Sciatica (ED) Additional Instructions: Your x-ray of your back showed stable degenerative changes. Your pain is most likely due irritation of your sciatic nerve. No bending, lifting or twisting. Use ice several times per day for 20 minutes at a time for the next 48 hours and then change to heat. Take medications as prescribed to help with pain and discomfort. Follow up with your Primary Care Doctor this week. If your pain worsens, if you develop new numbness, tingling, weakness, loss of function or incontinence call 911 or come back to the ER right away for evaluation. Prescriptions: New cyclobenzaprine 10 mg tablet 10 mg PO TID PRN (Reason: muscle spasm) Qty: 7 RF: 0 lidocaine [Lidoderm] 5 % adhesive patch,medicated 1 patch topical DAILY Qty: 15 RF: 0 ibuprofen 600 mg tablet 600 mg PO Q8H PRN (Reason: pain) Qty: 20 RF: 0 oxycodone 5 mg tablet 5 mg PO Q8H PRN (Reason: pain) Qty: 6 RF: 0 No Action hydrocortisone [Procto-Med HC] 2.5 % cream with perineal applicator 1 appl [place] BID-QID PRN (Reason: hemorrhoids) Qty: 30 RF: 3 albuterol sulfate 90 mcg/actuation HFA aerosol inhaler 2 puff inhalation Q4-6H PRN (Reason: shortness of breath or wheezing) Qty: 18 RF: 0 metronidazole [Flagyl] 500 mg tablet 500 mg PO BID Qty: 20 RF: 0 pantoprazole 40 mg tablet,delayed release (DR/EC) 40 mg PO QAM Qty: 30 RF: 5 docusate sodium [Colace] 100 mg capsule 200 mg PO BEDTIME Qty: 60 RF: 5 Citrucel 500 mg tablet 500 mg PO BID Qty: 60 RF: 5 clotrimazole 1 % cream 1 applic topical BID RF: 0 fluticasone propionate 50 mcg/actuation spray,suspension 1 spray intranasal BID RF: 0 diphenhydramine HCl 25 mg tablet 25 mg PO BEDTIME PRN (Reason: allergy) RF: 0 pantoprazole 40 mg tablet,delayed release (DR/EC) 40 mg PO DAILY RF: 0 Incruse Ellipta 62.5 mcg/actuation blister with device 62.5 inh inhalation DAILY RF: 0 cholecalciferol (vitamin D3) 50 mcg (2,000 unit) capsule 50 mcg PO BID RF: 0 montelukast 10 mg tablet 10 mg PO DAILY RF: 0 levothyroxine 100 mcg tablet 100 mcg PO DAILY RF: 0 cetirizine 10 mg tablet 10 mg PO DAILY RF: 0 citalopram 40 mg tablet 40 mg PO DAILY RF: 0 clonazepam 0.5 mg tablet 0.5 mg PO DAILY PRN (Reason: anxiety) RF: 0 budesonide 0.5 mg/2 mL suspension for nebulization 0.5 mg inhalation .q 6 h RF: 0 acetaminophen 650 mg tablet extended release 650 mg PO Q8H PRN (Reason: pain) RF: 0 tramadol 50 mg tablet 50 mg PO DAILY Qty: 30 RF: 2 meloxicam 15 mg tablet 15 mg PO DAILY 30 Days Qty: 30 RF: 0
[2021-04-20] MEDS: oxyCODONE HCl Immed Release 5 MG TABLET PO (23:33)
[2021-04-20] MEDS: Ketorolac Tromethamine 30 MG/ML VIAL IM (23:33)
[2021-04-20] MEDS: Lidocaine 4 % Patch ADH..PATCH 1 PATCH TRANSDERMA (23:34)
== END 2021-04-21 01:16 | disposition home or self-care (01) ==
PROVIDERS: Emergency Provider Student in an Organized Health Care Education/Training Program; PCP Pediatrics
DX: M54.40 Lumbago with sciatica, unspecified side (principal); J44.9 Chronic obstructive pulmonary disease, unspecified; Z79.899 Other long term (current) drug therapy
CPT/HCPCS: 72100; 96372; 99283; 99284; J1885

== ENCOUNTER 2021-04-25 06:46 | Emergency (ER) | payer MEDICARE, OTHER, SELFPAY ==
--- NOTE | ~2021-04-25 | CT_ITS ---
EXAMINATION: CT LUMBAR SPINE WITHOUT CONTRAST CLINICAL INFORMATION: Fall. Pain. COMPARISON: Previous lumbar spine x-ray 04/20/2021 and lumbar spine MRI December 2008 TECHNIQUE: Axial images through the lumbar spine without contrast. Sagittal and coronal reconstructions on the technologist workstation were performed. This CT examination was performed using dose optimization techniques as appropriate, variously including the following: *Automated exposure control *Adjustment of mA and/or kV according to patient size (this includes techniques or standardized protocols for targeted exams where dose is matched to indication/reason for exam; i.e. extremities or head) *Use of iterative reconstruction technique DLP; 587 mGy-cm FINDINGS: Bone alignment is normal. There is slight loss of height of the superior endplate of the L5 vertebral body. This appears unchanged from previous 2019 x-ray exam and probably represents represents a combination of mild old compression fracture and Schmorl's node of the left L5 superior endplate. No other fracture is seen. At T12-L1, L1-L2, and L2-L3 there is no disc herniation protrusion or bulge. At L3-L4 there is broad-based diffuse disc bulge. No disc herniation is seen. There is mild to moderate secondary spinal stenosis due to disc bulge, short pedicles and facet arthritis. At L4-L5 there is broad-based diffuse disc bulge. No disc herniation is seen. There is moderate secondary spinal stenosis due to disc bulge, short pedicles and facet arthritis. At L5-S1 there is broad-based diffuse disc bulge. No disc herniation is seen. There is mild secondary spinal stenosis due to disc bulge, short pedicles and facet arthritis. There is increased sclerosis along the iliac side of the sacroiliac joints. Paraspinal soft tissues are unremarkable. There is evidence of mild diverticulosis of the colon. CT/CT lumbar spine wo con IMPRESSION: No acute fracture or dislocation seen. Probable mild old L5 compression fracture and Schmorl node similar to 2019 x-ray exam. Disc bulge and secondary spinal stenosis from L3-L4 to L5-S1. No disc herniation seen. Diverticulosis..
--- NOTE | 2021-04-25 07:13 | ED_ITS ---
HPI - Extremity Problem General Chief complaint: Extremity Injury, Lower Stated complaint: pain in both legs, lower back pain Time Seen by Provider: 04/25/21 07:13 Source: patient and interpreter for the deaf Mode of arrival: ambulatory Limitations: no limitations History of Present Illness HPI Narrative: 66 yo female hx of COPD, anxiety, DCIS, no AC therapy here with low back pain radiating down both legs after fall from lawn chair, seen on 04/20 but did not disclose her fall at that time, upset she is still in pain x 6 days, cannot see PCP until 04/28 Complaint: other (back pain) Onset (ago): day(s) () Pain Consistency: constant Location: left, lower extremity and other (back) Quality: aching Radiation: distal Relieving factors: nothing Exacerbating factors: walking, exertion and palpation Associated symptoms: denies other symptoms Context: other (fall out of chair) Related Data Home Medications Medication Instructions Recorded Confirmed cetirizine 10 mg tablet 10 mg PO DAILY 07/30/20 01/23/21 cholecalciferol (vitamin D3) 50 50 mcg PO BID 07/30/20 01/23/21 mcg (2,000 unit) capsule citalopram 40 mg tablet 40 mg PO DAILY 07/30/20 01/23/21 clonazepam 0.5 mg tablet 0.5 mg PO DAILY PRN 07/30/20 01/23/21 clotrimazole 1 % topical cream 1 applic TOPICAL BID 07/30/20 01/23/21 diphenhydramine HCl 25 mg tablet 25 mg PO BEDTIME PRN 07/30/20 01/23/21 fluticasone propionate 50 1 spray INTRANASAL BID 07/30/20 01/23/21 mcg/actuation nasal spray,suspension levothyroxine 100 mcg tablet 100 mcg PO DAILY 07/30/20 01/23/21 montelukast 10 mg tablet 10 mg PO DAILY 07/30/20 01/23/21 pantoprazole 40 mg tablet,delayed 40 mg PO DAILY 07/30/20 01/23/21 release umeclidinium 62.5 mcg/actuation 62.5 inh INHALATION DAILY 07/30/20 01/23/21 blister powder for inhalation acetaminophen 650 mg 650 mg PO Q8H PRN 10/07/20 01/23/21 tablet,extended release budesonide 0.5 mg/2 mL suspension 0.5 mg INHALATION .q 6 h ml 10/07/20 01/23/21 for nebulization Previous Rx's Medication Instructions Recorded albuterol sulfate 2 puff INHALATION Q4-6H PRN #18 g 08/14/20 docusate sodium 100 mg capsule 200 mg PO BEDTIME #60 cap 11/26/20 methylcellulose (laxative) 500 mg 500 mg PO BID #60 tab 11/26/20 tablet pantoprazole 40 mg tablet,delayed 40 mg PO QAM #30 tab 11/26/20 release hydrocortisone 2.5 % topical cream 1 appl [place] BID-QID PRN #30 g 01/02/21 with perineal applicator metronidazole [Flagyl] 500 mg PO BID #20 tab 01/20/21 meloxicam 15 mg tablet 15 mg PO DAILY 30 Days #30 tab 03/03/21 tramadol 50 mg tablet 50 mg PO DAILY #30 tab 04/04/21 cyclobenzaprine 10 mg PO TID PRN #7 tab 04/21/21 ibuprofen 600 mg PO Q8H PRN #20 tab 04/21/21 lidocaine [Lidoderm] 1 patch TOPICAL DAILY #15 ea 04/21/21 oxycodone 5 mg PO Q8H PRN #6 tab 04/21/21 diazepam [Valium] 5 mg PO TID PRN #10 tab 04/25/21 hydrocodone-acetaminophen 1 tab PO Q6H PRN #12 tab 04/25/21 Allergies Allergy/AdvReac Type Severity Reaction Status Date / Time animal dander Allergy Mild SHORTNESS Verified 04/04/21 13:53 OF BREATH ciprofloxacin [From Cipro] Allergy Mild RASH Verified 04/04/21 13:53 vancomycin [Vancomycin] Allergy Mild SHORTNESS Verified 04/04/21 13:53 OF BREATH amoxicillin [AMOXICILLIN] Allergy Unknown RASH Verified 04/04/21 13:53 Penicillins [PENICILLINS] Allergy Unknown RASH Verified 04/04/21 13:53 Review of Systems Review of Systems: Constitutional : No Weight loss, No Fever, No Chills, ENT/Mouth : No Hearing loss, No Ear Pain, No Nasal Congestion, No Sinus Pain, No Hoarseness, No sore throat, No Rhinorrhea, No Swallowing Difficulty Cardiovascular : No Chest Pain, No SOB Respiratory : No Cough, No Dyspnea Gastrointestinal : No Nausea, No Vomiting, No Diarrhea, No abdominal Pain, No Hematochezia, No Melena Genitourinary : No Dysuria, No Urinary Frequency, No Hematuria, No Urinary Incontinence, Musculoskeletal : positive back pain Skin : No Skin Lesions, No rash Neuro : No Weakness, No Numbness, No Paresthesias, no loss of bowel or bladder incontinence, no saddle anesthesia All other systems are reviewed and negative [facility] Past Medical History Attestation statement: The following information was validated with the patient. Medical History Acid reflux Acute anxiety Allergic rhinitis Anxiety Asthma Asthma dependent on inhaled steroids COPD (chronic obstructive pulmonary disease) COPD exacerbation Depression Diverticulosis large intestine w/o perforation or abscess w/o bleeding Diverticulosis of colon Hypothyroid Irritable bowel Tubular adenoma Tubular adenoma Surgical History H/O esophagogastroduodenoscopy (~12/2018) History of colonoscopy with polypectomy (~12/2018) History of mandibular surgery Hx of cholecystectomy Hx of tubal ligation Family History Family History Maternal Aunt Pancreatic cancer Maternal Grandmother Diabetes Stroke Maternal Grandfather Diabetes Mother COPD (chronic obstructive pulmonary disease) Father Respiratory failure Social History Social History Household Members: Spouse Household Members Other:: Lives with an 11-year-old granddaughter Alcohol intake: never Patient Tobacco Use Status: Never used Tobacco Advance Directives: Yes Advance Directives Information Provided: Yes Advance Directives on File: No Current occupational status: retired Physical Exam Vital Signs: Vital Signs: Last Vital Signs Temp 98.3 F 04/25/21 07:28 Pulse 77 04/25/21 07:28 Resp 16 04/25/21 07:28 BP 129/72 04/25/21 09:03 Pulse Ox 95 04/25/21 07:28 Body Mass Index 32.5 Appearance: Alert. Oriented X3. No acute distress. Eyes: Pupils equal, round and reactive to light. ENT: Pharynx normal. Neck: Normal inspection. Neck supple. CVS: Normal heart rate and rhythm. Pulses normal. Respiratory: No respiratory distress. Breath sounds normal. Abdomen: Soft and nontender. Back: ttp along bilateral lower lumbar spine Skin: Skin warm and dry. Normal skin color. Normal skin turgor. Extremities: No lower extremity edema. No calf ttp Neuro: Oriented X 3. No motor deficit. No sensory deficit. SILT inner thigh bilateral 2+ patella reflexes, L5 5/5 bilaterally Course Course Course Narrative: patient up and walking to the bathroom on her own without issue no acute fractures on CT scan MDM - Extremity (Nontraumatic) MDM Narrative Medical decision making narrative: 66 yo female hx of COPD, anxiety, DCIS, no AC therapy here with low back pain radiating down both legs after fall from lawn chair, seen on 04/20 but did not disclose her fall at that time, upset she is still in pain x 6 days, cannot see PCP until 04/28 at this time given falls will obtain CT lumbar spine for compression fracture - PO pain medications, instructed her she will most likely need PT and she cannot expect to get better so rapidly, no b/b incontinence no saddle anesthesia Discharge Plan Discharge Clinical Impression: Sciatica Qualifiers: Laterality: left Qualified Code(s): M54.32 - Sciatica, left side Patient Disposition: Home, Self-Care Instructions: Sciatica (ED), Lower Back Exercises (ED) Additional Instructions: return to ED for any worsening symptoms or concerns Prescriptions: New hydrocodone-acetaminophen 5-325 mg tablet 1 tab PO Q6H PRN (Reason: pain) Qty: 12 RF: 0 diazepam [Valium] 5 mg tablet 5 mg PO TID PRN (Reason: muscle spasm) Qty: 10 RF: 0 No Action hydrocortisone [Procto-Med HC] 2.5 % cream with perineal applicator 1 appl [place] BID-QID PRN (Reason: hemorrhoids) Qty: 30 RF: 3 albuterol sulfate 90 mcg/actuation HFA aerosol inhaler 2 puff inhalation Q4-6H PRN (Reason: shortness of breath or wheezing) Qty: 18 RF: 0 metronidazole [Flagyl] 500 mg tablet 500 mg PO BID Qty: 20 RF: 0 cyclobenzaprine 10 mg tablet 10 mg PO TID PRN (Reason: muscle spasm) Qty: 7 RF: 0 lidocaine [Lidoderm] 5 % adhesive patch,medicated 1 patch topical DAILY Qty: 15 RF: 0 ibuprofen 600 mg tablet 600 mg PO Q8H PRN (Reason: pain) Qty: 20 RF: 0 oxycodone 5 mg tablet 5 mg PO Q8H PRN (Reason: pain) Qty: 6 RF: 0 pantoprazole 40 mg tablet,delayed release (DR/EC) 40 mg PO QAM Qty: 30 RF: 5 docusate sodium [Colace] 100 mg capsule 200 mg PO BEDTIME Qty: 60 RF: 5 Citrucel 500 mg tablet 500 mg PO BID Qty: 60 RF: 5 clotrimazole 1 % cream 1 applic topical BID RF: 0 fluticasone propionate 50 mcg/actuation spray,suspension 1 spray intranasal BID RF: 0 diphenhydramine HCl 25 mg tablet 25 mg PO BEDTIME PRN (Reason: allergy) RF: 0 pantoprazole 40 mg tablet,delayed release (DR/EC) 40 mg PO DAILY RF: 0 Incruse Ellipta 62.5 mcg/actuation blister with device 62.5 inh inhalation DAILY RF: 0 cholecalciferol (vitamin D3) 50 mcg (2,000 unit) capsule 50 mcg PO BID RF: 0 montelukast 10 mg tablet 10 mg PO DAILY RF: 0 levothyroxine 100 mcg tablet 100 mcg PO DAILY RF: 0 cetirizine 10 mg tablet 10 mg PO DAILY RF: 0 citalopram 40 mg tablet 40 mg PO DAILY RF: 0 clonazepam 0.5 mg tablet 0.5 mg PO DAILY PRN (Reason: anxiety) RF: 0 budesonide 0.5 mg/2 mL suspension for nebulization 0.5 mg inhalation .q 6 h RF: 0 acetaminophen 650 mg tablet extended release 650 mg PO Q8H PRN (Reason: pain) RF: 0 tramadol 50 mg tablet 50 mg PO DAILY Qty: 30 RF: 2 meloxicam 15 mg tablet 15 mg PO DAILY 30 Days Qty: 30 RF: 0 Referrals: Physician,Unknown [Primary Care Provider] - 5 days Print Language: Armenian
[2021-04-25 07:28] VITALS: PULSE 77; RESP 16; TEMP 36.8; O2SAT 95; BMI 32.5
[2021-04-25] MEDS: diazePAM 5 MG TABLET PO (07:49)
[2021-04-25 09:03] VITALS: BP 129/72
[2021-04-25] MEDS: oxyCODONE HCl Immed Release 5 MG TABLET PO (09:17)
== END 2021-04-25 09:48 | disposition home or self-care (01) ==
PROVIDERS: Emergency Provider Emergency Medicine
DX: M54.32 Sciatica, left side (principal); J44.9 Chronic obstructive pulmonary disease, unspecified; Z79.899 Other long term (current) drug therapy
CPT/HCPCS: 72131; 99284

== ENCOUNTER 2021-05-04 06:39 | Emergency (ER) | payer MEDICARE, OTHER, SELFPAY ==
[2021-05-04 07:03] VITALS: BP 133/66; PULSE 78; RESP 16; TEMP 36.7; O2SAT 98; BMI 32.5
--- NOTE | 2021-05-04 07:34 | ED_ITS ---
HPI - General Adult General Chief complaint: Extremity Problem Stated complaint: back/leg pain Time Seen by Provider: 05/04/21 07:06 History of Present Illness HPI narrative: this is a 66 years old female who comes ambulatory to the emergency department complaining of lower back pain radiating to the left lower extremity she has 1 seen in the Emergency Room radium April 20 she was given Flexeril Lidoderm patch ibuprofen and oxycodone, she was seen once in the emergency room on April 25 she was given Vicodin and diazepam in she continued to have lower back pain or injury to the left lower extremity she is able to ambulate a year ago. She also has an evaluation by the Rheumatology on April 04 she got tramadol patient an orthopedist evaluation on March 03 the with the rain knee injection and she was given meloxicam. She takes multiple medications including benzodiazepines and opioids at this time again she was able to ambulate to the ED Onset (ago): week(s) Location: lower extremity ( left lower extremity) Radiation: back Severity: moderate Severity scale (1-10): 5 Quality: burning Pain Consistency: constant Exacerbating factors: none Related Data Home Medications Medication Instructions Recorded Confirmed cetirizine 10 mg tablet 10 mg PO DAILY 07/30/20 01/23/21 cholecalciferol (vitamin D3) 50 50 mcg PO BID 07/30/20 01/23/21 mcg (2,000 unit) capsule citalopram 40 mg tablet 40 mg PO DAILY 07/30/20 01/23/21 clonazepam 0.5 mg tablet 0.5 mg PO DAILY PRN 07/30/20 01/23/21 clotrimazole 1 % topical cream 1 applic TOPICAL BID 07/30/20 01/23/21 diphenhydramine HCl 25 mg tablet 25 mg PO BEDTIME PRN 07/30/20 01/23/21 fluticasone propionate 50 1 spray INTRANASAL BID 07/30/20 01/23/21 mcg/actuation nasal spray,suspension levothyroxine 100 mcg tablet 100 mcg PO DAILY 07/30/20 01/23/21 montelukast 10 mg tablet 10 mg PO DAILY 07/30/20 01/23/21 pantoprazole 40 mg tablet,delayed 40 mg PO DAILY 07/30/20 01/23/21 release umeclidinium 62.5 mcg/actuation 62.5 inh INHALATION DAILY 07/30/20 01/23/21 blister powder for inhalation acetaminophen 650 mg 650 mg PO Q8H PRN 10/07/20 01/23/21 tablet,extended release budesonide 0.5 mg/2 mL suspension 0.5 mg INHALATION .q 6 h ml 10/07/20 01/23/21 for nebulization Previous Rx's Medication Instructions Recorded albuterol sulfate 2 puff INHALATION Q4-6H PRN #18 g 08/14/20 docusate sodium 100 mg capsule 200 mg PO BEDTIME #60 cap 11/26/20 methylcellulose (laxative) 500 mg 500 mg PO BID #60 tab 11/26/20 tablet pantoprazole 40 mg tablet,delayed 40 mg PO QAM #30 tab 11/26/20 release hydrocortisone 2.5 % topical cream 1 appl HI BID-QID PRN #30 g 01/02/21 with perineal applicator metronidazole [Flagyl] 500 mg PO BID #20 tab 01/20/21 meloxicam 15 mg tablet 15 mg PO DAILY 30 Days #30 tab 03/03/21 tramadol 50 mg tablet 50 mg PO DAILY #30 tab 04/04/21 cyclobenzaprine 10 mg PO TID PRN #7 tab 04/21/21 ibuprofen 600 mg PO Q8H PRN #20 tab 04/21/21 lidocaine [Lidoderm] 1 patch TOPICAL DAILY #15 ea 04/21/21 oxycodone 5 mg PO Q8H PRN #6 tab 04/21/21 diazepam [Valium] 5 mg PO TID PRN #10 tab 04/25/21 hydrocodone-acetaminophen 1 tab PO Q6H PRN #12 tab 04/25/21 Allergies Allergy/AdvReac Type Severity Reaction Status Date / Time animal dander Allergy Mild SHORTNESS Verified 04/04/21 13:53 OF BREATH ciprofloxacin [From Cipro] Allergy Mild RASH Verified 04/04/21 13:53 vancomycin [Vancomycin] Allergy Mild SHORTNESS Verified 04/04/21 13:53 OF BREATH amoxicillin [AMOXICILLIN] Allergy Unknown RASH Verified 04/04/21 13:53 Penicillins [PENICILLINS] Allergy Unknown RASH Verified 04/04/21 13:53 Review of Systems Review of Systems: Yes all other systems are reviewed and are negative Cardiovascular: Cardiovascular: Reports no additional cardiovascular complaints Respiratory: Respiratory: Reports no additional respiratory complaints PMFSH Past Medical History Medical History Acid reflux Acute anxiety Allergic rhinitis Anxiety Asthma Asthma dependent on inhaled steroids COPD (chronic obstructive pulmonary disease) COPD exacerbation Depression Diverticulosis large intestine w/o perforation or abscess w/o bleeding Diverticulosis of colon Hypothyroid Irritable bowel Tubular adenoma Tubular adenoma Surgical History H/O esophagogastroduodenoscopy (~12/2018) History of colonoscopy with polypectomy (~12/2018) History of mandibular surgery Hx of cholecystectomy Hx of tubal ligation Family History Family History Maternal Aunt Pancreatic cancer Maternal Grandmother Diabetes Stroke Maternal Grandfather Diabetes Mother COPD (chronic obstructive pulmonary disease) Father Respiratory failure Social History Social History Household Members: Spouse Household Members Other:: Lives with an 11-year-old granddaughter Alcohol intake: never Patient Tobacco Use Status: Never used Tobacco Advance Directives: Yes Advance Directives Information Provided: Yes Advance Directives on File: No Current occupational status: retired Physical Exam Vital Signs: Vital Signs: Last Vital Signs Temp 98.1 F 05/04/21 07:03 Pulse 78 05/04/21 07:03 Resp 16 05/04/21 07:03 BP 133/66 05/04/21 07:03 Pulse Ox 98 05/04/21 07:03 Body Mass Index 32.5 Const: General: cooperative, healthy appearing, comfortable and no acute distress Orientation/consciousness: oriented to person, oriented to place, oriented to time and patient oriented x3 HENMT: Head: Yes normal to inspection Eyes: General: appearance normal, both eyes and all related structures Visual Pride: normal visual pride by confrontation Neck: Neck: Yes normal visual inspection Chest: Chest palpation & inspection: normal inspection of the chest Resp: Auscultation: clear to auscultation bilaterally Cardio: Jugular venous distension: no JVD Rate: regular rate GI: Inspection: Yes normal to inspection Palpation (GI): Soft to palpation, nontender and no guarding Skin: General skin exam: no rashes or lesions noted, elasticity normal and turgor normal Neuro: Other: patient has good strength in both lower extremity there is no deficit in sensation reflexes are intact she is able to ambulate with a slight antalgic gait. General: oriented to person, oriented to place, oriented to time and patient oriented x3 Medical Decision Making MDM Narrative Medical decision making narrative: Patient presented with sciatica symptoms in the left but she neurologically intact she is able to ambulate she has no red flag such as urine incontinence or saddle anesthesia she has interacted sensation is strength. I do think the patient can be follow up by a primary care physician or sales operations specialist as of patient she will need physical therapy she is already taking anti-inflammatory medication. She will need an outpatient MRI for diagnosis. At this point I will not give any further narcotic I will give her the [facility] she can get the MRI and physical therapy /spine injection Discharge Plan Discharge Prescriptions: No Action hydrocortisone [Procto-Med HC] 2.5 % cream with perineal applicator 1 appl HI BID-QID PRN (Reason: hemorrhoids) Qty: 30 RF: 3 albuterol sulfate 90 mcg/actuation HFA aerosol inhaler 2 puff inhalation Q4-6H PRN (Reason: shortness of breath or wheezing) Qty: 18 RF: 0 metronidazole [Flagyl] 500 mg tablet 500 mg PO BID Qty: 20 RF: 0 cyclobenzaprine 10 mg tablet 10 mg PO TID PRN (Reason: muscle spasm) Qty: 7 RF: 0 lidocaine [Lidoderm] 5 % adhesive patch,medicated 1 patch topical DAILY Qty: 15 RF: 0 ibuprofen 600 mg tablet 600 mg PO Q8H PRN (Reason: pain) Qty: 20 RF: 0 oxycodone 5 mg tablet 5 mg PO Q8H PRN (Reason: pain) Qty: 6 RF: 0 hydrocodone-acetaminophen 5-325 mg tablet 1 tab PO Q6H PRN (Reason: pain) Qty: 12 RF: 0 diazepam [Valium] 5 mg tablet 5 mg PO TID PRN (Reason: muscle spasm) Qty: 10 RF: 0 pantoprazole 40 mg tablet,delayed release (DR/EC) 40 mg PO QAM Qty: 30 RF: 5 docusate sodium [Colace] 100 mg capsule 200 mg PO BEDTIME Qty: 60 RF: 5 Citrucel 500 mg tablet 500 mg PO BID Qty: 60 RF: 5 clotrimazole 1 % cream 1 applic topical BID RF: 0 fluticasone propionate 50 mcg/actuation spray,suspension 1 spray intranasal BID RF: 0 diphenhydramine HCl 25 mg tablet 25 mg PO BEDTIME PRN (Reason: allergy) RF: 0 pantoprazole 40 mg tablet,delayed release (DR/EC) 40 mg PO DAILY RF: 0 Incruse Ellipta 62.5 mcg/actuation blister with device 62.5 inh inhalation DAILY RF: 0 cholecalciferol (vitamin D3) 50 mcg (2,000 unit) capsule 50 mcg PO BID RF: 0 montelukast 10 mg tablet 10 mg PO DAILY RF: 0 levothyroxine 100 mcg tablet 100 mcg PO DAILY RF: 0 cetirizine 10 mg tablet 10 mg PO DAILY RF: 0 citalopram 40 mg tablet 40 mg PO DAILY RF: 0 clonazepam 0.5 mg tablet 0.5 mg PO DAILY PRN (Reason: anxiety) RF: 0 budesonide 0.5 mg/2 mL suspension for nebulization 0.5 mg inhalation .q 6 h RF: 0 acetaminophen 650 mg tablet extended release 650 mg PO Q8H PRN (Reason: pain) RF: 0 tramadol 50 mg tablet 50 mg PO DAILY Qty: 30 RF: 2 meloxicam 15 mg tablet 15 mg PO DAILY 30 Days Qty: 30 RF: 0
[2021-05-04] MEDS: Ketorolac Tromethamine 60 MG/2 ML VIAL IM (07:56)
[2021-05-04] MEDS: diazePAM 5 MG TABLET PO (07:57)
== END 2021-05-04 08:01 | disposition home or self-care (01) ==
PROVIDERS: Emergency Provider Emergency Medicine; PCP Pediatrics
DX: M54.30 Sciatica, unspecified side (principal); M54.5 Low back pain; J44.9 Chronic obstructive pulmonary disease, unspecified; Z79.891 Long term (current) use of opiate analgesic; Z79.899 Other long term (current) drug therapy
CPT/HCPCS: 96372; 99284; J1885

== ENCOUNTER 2021-05-19 09:30 | Outpatient (REF) | payer MEDICARE, OTHER, SELFPAY ==
--- NOTE | ~2021-05-19 | XR_ITS ---
EXAMINATION: XR HIP, LEFT CLINICAL INFORMATION: Left hip and groin pain. Fall 1 month ago. COMPARISON: Left hip radiographs dated 05/03/2019 TECHNIQUE: Two views of the left hip. FINDINGS: No fracture or dislocation. No joint space narrowing or marginal osteophytes. No osseous erosion. No abnormal soft tissue calcification. XR/XR hip LT min 2V IMPRESSION: Unremarkable examination.
== END 2021-05-19 09:31 | disposition home or self-care (01) ==
LOC: HO.XRAY 09:30
PROVIDERS: PCP Pediatrics; Visit Provider Neurological Surgery
DX: M25.552 Pain in left hip (principal); Z91.81 History of falling
CPT/HCPCS: 73502

== ENCOUNTER 2021-06-02 09:26 | Outpatient (REF) | payer MEDICARE, OTHER, SELFPAY ==
--- NOTE | ~2021-06-02 | MR_ITS ---
MR LUMBAR SPINE WITHOUT CONTRAST CLINICAL INFORMATION: Radiculopathy and left hip pain. Low back pain. COMPARISON: Lumbar spine CT April 25, 2021. TECHNIQUE: MRI of the lumbar spine was obtained using routine sequences without contrast. FINDINGS: There is transitional anatomy. Please note that there are 4 nonrib-bearing lumbar-type vertebral bodies and that S1 shares a rudimentary disc with S2. The last completely developed intervertebral disc is considered L4-S1. Please correlate with plain films prior to any percutaneous or surgical intervention. There is grade 1 retrolisthesis of L3 on L4. There is chronic vertebral body height loss at L4. Vertebral body heights are otherwise maintained. There is disc desiccation at L2-L3, L3-L4, and L4-S1. There is no bone marrow edema. There are no acute fractures. The conus terminates at the L1-L2 level. L1-L2: Slight annular disc bulge. Right greater than left hypertrophic facet arthropathy. No central canal stenosis and no foraminal stenosis. L2-L3: Diffuse annular disc bulge and moderate bilateral hypertrophic facet arthropathy and ligamentum flavum thickening. These findings in concert result in mild to moderate central canal stenosis, bilateral subarticular zone stenosis with mass effect on the traversing L3 nerve roots bilaterally, and mild bilateral foraminal encroachment. L3-L4: Diffuse annular disc bulge and moderate bilateral hypertrophic facet arthropathy and ligamentum flavum thickening. Findings in concert result in mild to moderate central canal stenosis, bilateral subarticular zone stenosis with mass effect on the traversing L4 nerve roots bilaterally, and mild to moderate left-sided foraminal stenosis. L4-S1: There is a probable disc sequestration extending from the left L4 lateral recess into the proximal left L4-S1 neural foramen compressing the left L4 nerve root best seen on sagittal image 5 and 6 of series 3 and axial image 28 of series 7. There is a shallow central disc protrusion that contacts the traversing S1 nerve roots within the subarticular zones bilaterally and there is a background annular disc bulge. Bilateral facet arthropathy. Moderate to severe left foraminal stenosis with mass effect on the exiting left L4 nerve root. MR/MR lumbar spine wo con IMPRESSION: - There is transitional anatomy. Please note that there are 4 nonrib-bearing lumbar-type vertebral bodies and that S1 shares a rudimentary disc with S2. The last completely developed intervertebral disc is considered L4-S1. Please correlate with plain films prior to any percutaneous or surgical intervention. - Using this counting system, there is a probable disc sequestration extending from the left L4 lateral recess into the proximal left L4-S1 neural foramen compressing the left L4 nerve root best seen on sagittal image 5 and 6 of series 3 as well as axial image 28 of series 7 and axial image 14 of series 8. At L4-L5, multifactorial degenerative changes result in moderate to severe left foraminal stenosis with mass effect on the exiting left L4 nerve root. - At L3-L4, multifactorial degenerative changes result in mild to moderate central canal stenosis, bilateral subarticular zone stenosis with mass effect on the traversing L4 nerve roots bilaterally, and mild to moderate left-sided foraminal stenosis. - At L2-L3, multifactorial degenerative changes result in mild to moderate central canal stenosis, bilateral subarticular zone stenosis with mass effect on the traversing L3 nerve roots bilaterally, and mild bilateral foraminal encroachment (best seen on image 4 of series 8).
== END 2021-06-02 09:27 | disposition home or self-care (01) ==
LOC: HO.MRI 09:26
PROVIDERS: Visit Provider Physician Assistant
DX: M54.16 Radiculopathy, lumbar region (principal); M54.5 Low back pain; M25.552 Pain in left hip
CPT/HCPCS: 72148

== ENCOUNTER 2021-06-06 15:14 | Emergency (ER) | payer MEDICARE, OTHER, SELFPAY ==
--- NOTE | ~2021-06-06 | XR_ITS ---
EXAMINATION: XR CHEST CLINICAL INFORMATION: Shortness of breath COMPARISON: Previous chest x-ray 02/24/2021 TECHNIQUE: Frontal view of the chest was obtained. FINDINGS: The cardiac and mediastinal contours are stable. The lungs are clear. There is no pleural effusion or pneumothorax. There are surgical clips left axilla. Bony structures are unremarkable. XR/XR chest 1V IMPRESSION: No evidence for acute disease in the chest.
[2021-06-06 15:34] VITALS: BP 111/69; PULSE 106; RESP 22; TEMP 36.6; O2SAT 92; BMI 32.5
[2021-06-06 18:29] LABS: Influenza A PCR NEGATIVE (Negative); Influenza B PCR NEGATIVE (Negative); Resp Syncy Virus RNA Qual PCR NEGATIVE (Negative); SARS COV2 PCR INHOUSE NEGATIVE (Negative)
== END 2021-06-06 21:41 | disposition left against medical advice (07) ==
PROVIDERS: Emergency Provider Emergency Medicine; PCP Pediatrics
DX: R10.9 Unspecified abdominal pain (principal); R11.10 Vomiting, unspecified; R42 Dizziness and giddiness; R06.02 Shortness of breath; Z20.822 Contact with and (suspected) exposure to COVID-19
CPT/HCPCS: 0241U; 36415; 71045; 99282; 99283

== ENCOUNTER 2021-06-17 14:54 | Outpatient (REF) | payer MEDICARE, OTHER, SELFPAY ==
--- NOTE | ~2021-06-17 | MM_ITS ---
EXAMINATION: BONE DENSITOMETRY CLINICAL INDICATION: Osteopenia. COMPARISON: Previous BD dated 10/26/2018 and baseline BD dated 02/01/2009. TECHNIQUE: Using a [employer] DXA System (software version: 13.1) manufactured by [employer], dual-energy x-ray absorptiometry was performed of the lumbar spine and left hip. The images are of good technical quality. Summary results are attached. FINDINGS: AP SPINE L1-L4: Current: BMD 0.994 g/cm2, Z-score -0.6, T-score -1.5, osteopenia, 2.1% increase from previous, 9.3% increase from baseline (<5% change is not significant). Prior: BMD 0.974 g/cm2. Baseline: BMD 1.096 g/cm2. LEFT FEMUR, NECK: Current: BMD 0.822 g/cm2, Z-score -0.5, T-score -1.6, osteopenia. Prior: BMD 0.842 g/cm2. Baseline: BMD 0.924 g/cm2. LEFT FEMUR, TOTAL: Current: BMD 0.840 g/cm2, Z-score -0.6, T-score -1.3, osteopenia, 0.8% decrease from previous, 8.7% decrease from baseline (<5% change is not significant). Prior: BMD 0.847 g/cm2. Baseline: BMD 0.920 g/cm2. IDENTIFIED RISK FACTORS: Parental hip fracture. Height loss. Secondary osteoporosis. Menopause. Recurrent falls. HISTORY OF FRACTURE: None listed. MEDICATIONS: Vitamin D. MM/XR DEXA axial skeleton IMPRESSION: 1. DIAGNOSIS: Osteopenia based on the lowest T-score value of -1.6 in the femoral neck applying World Health Organization criteria. 2. 10-YEAR FRACTURE RISK PREDICTION, FRAX: Major osteoporotic fracture (clinical spine, forearm, hip or shoulder) 9.2%. Hip fracture 0.7%. 3. Treatment Recommendations: NOF guidelines recommend consideration for treatment in postmenopausal women and men age 50 and older presenting with the following: -A hip or vertebral (clinical or morphometric) fracture. -T-score less than or equal to -2.5 at the femoral neck or spine after appropriate evaluation to exclude secondary causes. -Low bone mass at the hip or spine and a 10-year fracture probability by FRAX of greater than or equal to 3% for hip fracture or greater than or equal to 20% for major osteoporotic fracture based on the [place] adapted WHO algorithm. 4. Other Recommendations: All treatment decisions require clinical judgment and consideration of individual patient factors, including patient preferences, comorbidities, previous drug use, risk factors not captured in the FRAX model (e.g. frailty, falls, vitamin D deficiency, increased bone turnover, interval significant decline in bone density) and possible under or overestimation of fracture risk by FRAX. Additional medical evaluation for secondary cause of low bone mineral density may be appropriate. FUTURE SCAN RECOMMENDATION: People with diagnosed cases of osteoporosis or at high risk for fracture should have regular bone mineral density tests. For patients eligible for Medicare, routine testing is allowed once every 2 years. The testing frequency can be increased to one year for patients who have rapidly progressing disease, those who are receiving or discontinuing medical therapy to restore bone mass, or have additional risk factors.
== END 2021-06-17 14:55 | disposition home or self-care (01) ==
LOC: HO.MAMMO 14:54
PROVIDERS: Visit Provider Internal Medicine Medical Oncology
DX: Z13.820 Encounter for screening for osteoporosis (principal); M85.80 Other specified disorders of bone density and structure, unspecified site; M85.9 Disorder of bone density and structure, unspecified; Z78.0 Asymptomatic menopausal state; Z79.899 Other long term (current) drug therapy; Z87.81 Personal history of (healed) traumatic fracture
CPT/HCPCS: 77080

== ENCOUNTER → 2021-07-01 13:01 | Outpatient (BNVA) | payer MEDICARE, OTHER, SELFPAY | PROVIDERS: PCP Pediatrics; Visit Provider Internal Medicine | DX: J44.1 Chronic obstructive pulmonary disease with (acute) exacerbation (principal); J30.9 Allergic rhinitis, unspecified; F32.9 Major depressive disorder, single episode, unspecified; Z79.51 Long term (current) use of inhaled steroids; Z79.899 Other long term (current) drug therapy | CPT/HCPCS: 99212 ==

== ENCOUNTER → 2021-08-14 08:10 | Outpatient (BNVA) | payer MEDICARE, OTHER, SELFPAY | PROVIDERS: PCP Pediatrics; Visit Provider Physician Assistant | DX: Z13.89 Encounter for screening for other disorder (principal) | CPT/HCPCS: Q3014 ==

== ENCOUNTER 2021-08-27 13:30 | Outpatient (REF) | payer MEDICARE, OTHER, SELFPAY | END 2021-08-27 13:31 | disposition home or self-care (01) | LOC: HO.MAMMO 13:30 | PROVIDERS: PCP Pediatrics; Visit Provider Internal Medicine Medical Oncology | DX: Z13.89 Encounter for screening for other disorder (principal) ==

== ENCOUNTER 2021-08-28 08:22 | Outpatient (REF) | payer MEDICARE, OTHER, SELFPAY ==
--- NOTE | ~2021-08-28 | MM_ITS ---
EXAMINATION: MM SCREENING DIGITAL BREAST TOMOSYNTHESIS, BILATERAL CLINICAL INFORMATION: Screening. Asymptomatic. COMPARISON: Mammography: July 02, 2020 and studies dating back to March 15, 2014 TECHNIQUE: Digital breast tomosynthesis is performed in both the craniocaudal and mediolateral oblique views along with computer-aided detection (CAD). Synthesized 2D images are generated from the tomosynthesis. FINDINGS: There are scattered areas of fibroglandular density (ACR BI-RADS breast composition Category b). There are no new significant masses, abnormal calcifications, or other abnormalities. Postsurgical distortion seen within the left breast. MM/MM tomosynthesis screening BI IMPRESSION: There are no significant changes from prior study. ASSESSMENT: BI-RADS 2: Benign RECOMMENDATION: Routine annual mammography screening. This patient's information was entered into a reminder system with a target due date for their next mammogram.
== END 2021-08-28 08:23 | disposition home or self-care (01) ==
LOC: HO.MAMMO 08:22
PROVIDERS: PCP Pediatrics; Visit Provider Internal Medicine Medical Oncology
DX: Z12.31 Encounter for screening mammogram for malignant neoplasm of breast (principal)
CPT/HCPCS: 77063; 77067

== ENCOUNTER 2021-10-15 10:04 | Outpatient (REF) | payer MEDICARE, SELFPAY | END 2021-10-15 10:05 | disposition home or self-care (01) | LOC: HO.LAB 10:04 | PROVIDERS: Visit Provider Internal Medicine | DX: Z20.822 Contact with and (suspected) exposure to COVID-19 (principal) | CPT/HCPCS: C9803; U0003; U0005 ==

== ENCOUNTER 2021-10-16 05:10 | Emergency (ER) | payer MEDICARE, OTHER, SELFPAY ==
[2021-10-16 05:24] VITALS: BP 104/71; PULSE 93; RESP 20; TEMP 36.9; O2SAT 94; BMI 30.6
--- NOTE | 2021-10-16 05:44 | ED_ITS ---
HPI - General Adult General Chief complaint: General Medical Stated complaint: vomiting, dizziness, pain @ site post covidbooster Time Seen by Provider: 10/16/21 05:44 Source: patient Mode of arrival: ambulatory Limitations: no limitations History of Present Illness HPI narrative: Patient had COVID booster 3 days ago and since then she has had dizziness, myalgias, fatigue and vomiting. Onset (ago): day(s) Severity: moderate Associated symptoms: nausea/vomiting Treatments prior to arrival: none Related Data Home Medications Medication Instructions Recorded Confirmed cetirizine 10 mg tablet 10 mg PO DAILY 07/30/20 05/19/21 cholecalciferol (vitamin D3) 50 50 mcg PO BID 07/30/20 05/19/21 mcg (2,000 unit) capsule citalopram 40 mg tablet 40 mg PO DAILY 07/30/20 05/19/21 clonazepam 0.5 mg tablet 0.5 mg PO DAILY PRN 07/30/20 05/19/21 clotrimazole 1 % topical cream 1 applic TOPICAL BID 07/30/20 05/19/21 diphenhydramine HCl 25 mg tablet 25 mg PO BEDTIME PRN 07/30/20 05/19/21 levothyroxine 100 mcg tablet 100 mcg PO DAILY 07/30/20 05/19/21 montelukast 10 mg tablet 10 mg PO DAILY 07/30/20 05/19/21 umeclidinium 62.5 mcg/actuation 62.5 inh INHALATION DAILY 07/30/20 01/23/21 blister powder for inhalation acetaminophen 650 mg 650 mg PO Q8H PRN 10/07/20 05/19/21 tablet,extended release budesonide 0.5 mg/2 mL suspension 0.5 mg INHALATION .q 6 h ml 10/07/20 05/19/21 for nebulization fluticasone propionate 50 1 spray INTRANASAL BID PRN 07/01/21 mcg/actuation nasal spray,suspension Previous Rx's Medication Instructions Recorded albuterol sulfate 90 mcg/actuation 2 puff INHALATION Q4-6H PRN #18 g 08/14/20 aerosol inhaler hydrocortisone 2.5 % topical cream 1 appl [place] BID-QID PRN #30 g 01/02/21 with perineal applicator (Procto-Med ) tramadol 50 mg tablet 50 mg PO DAILY #30 tab 04/04/21 docusate sodium 100 mg capsule 200 mg PO BEDTIME #60 cap 05/26/21 fluticasone 250 mcg-salmeterol 50 1 inh INHALATION Q12H 30 Days #60 07/01/21 mcg/dose blistr powdr for ea inhalation (Advair Diskus) prednisone 10 mg tablet 10 mg PO BID 14 Days #28 tab 07/01/21 pantoprazole 40 mg tablet,delayed 40 mg PO DAILY #30 tab 10/01/21 release meclizine 25 mg tablet 25 mg PO TID PRN #20 tab 10/16/21 ondansetron HCl 4 mg tablet 4 mg PO Q8H PRN #10 tab 10/16/21 (Zofran) Allergies Allergy/AdvReac Type Severity Reaction Status Date / Time animal dander Allergy Mild SHORTNESS Verified 08/14/21 08:11 OF BREATH ciprofloxacin [From Cipro] Allergy Mild RASH Verified 08/14/21 08:11 vancomycin [Vancomycin] Allergy Mild SHORTNESS Verified 08/14/21 08:11 OF BREATH amoxicillin [AMOXICILLIN] Allergy Unknown RASH Verified 08/14/21 08:11 Penicillins [PENICILLINS] Allergy Unknown RASH Verified 08/14/21 08:11 Review of Systems Constitutional: Constitutional: Reports no additional constitutional complai nts Eyes: Eyes: Reports no additional eye complaints ENT: Denies dizziness Cardiovascular: Cardiovascular: Reports no additional cardiovascular complaints Respiratory: Respiratory: Reports as per HPI Gastrointestinal: Gastrointestinal: Reports no additional gastrointestinal complaints Genitourinary: Genitourinary: Reports no additional female genitourinary complaints Musculoskeletal: Musculoskeletal: Reports no additional musculoskeletal comp laints Integumentary/Breasts: Skin/Breast: Denies rash Neurologic: Reports system reviewed and no additional complaints, except as documented, Denies dizziness and Denies Sensory deficit (Neuro) Psychiatric: Psychiatric: Denies anxiety PMFSH Past Medical History Medical History Acid reflux Acute anxiety Allergic rhinitis Anxiety Asthma Asthma dependent on inhaled steroids COPD (chronic obstructive pulmonary disease) COPD exacerbation Depression Diverticulosis large intestine w/o perforation or abscess w/o bleeding Diverticulosis of colon Hypothyroid Irritable bowel Tubular adenoma Tubular adenoma Surgical History H/O esophagogastroduodenoscopy (~12/2018) History of colonoscopy with polypectomy (~12/2018) History of mandibular surgery Hx of cholecystectomy Hx of tubal ligation Family History Family History Maternal Aunt Pancreatic cancer Maternal Grandmother Diabetes Stroke Maternal Grandfather Diabetes Mother COPD (chronic obstructive pulmonary disease) Father Respiratory failure Social History Social History Household Members: Spouse Household Members Other:: Lives with an 11-year-old granddaughter Alcohol intake: never Patient Tobacco Use Status: Never used Tobacco Advance Directives: No Advance Directives Information Provided: Yes Current occupational status: retired Physical Exam Vital Signs: Vital Signs: Last Vital Signs Temp 98.5 F 10/16/21 07:05 Pulse 78 10/16/21 07:05 Resp 20 10/16/21 05:24 BP 144/73 H 10/16/21 07:05 Pulse Ox 95 10/16/21 07:05 BMI result Body Mass Index 30.6 Const: General: healthy appearing Nutritional Appearance: average body habitus Orientation/consciousness: oriented to person and patient oriented x3 Limitations: no limitations HENMT: Head: Yes normal to inspection Ears: external ears normal General nose exam: Normal external nose present Mouth: Normal oral and palatal mucosa present and oropharynx normal Throat: Yes posterior oropharynx normal Eyes: Other: nystagmus on right gaze Neck: Other: supple Neck: Yes normal visual inspection Chest: Chest palpation & inspection: normal inspection of the chest Resp: Auscultation: clear to auscultation bilaterally Cardio: Jugular venous distension: no JVD Rate: regular rate Rhythm: regular rhythm Heart sounds: S1 normal heart sound present and S2 normal heart sound present GI: Inspection: Yes normal to inspection Palpation (GI): Soft to palpation, nontender and No hepatosplenomegaly present Auscultation: normal bowel sounds : General: Yes no CVA tenderness Back/Spine/Pelvis: Back: no CVA tenderness Skin: General skin exam: no rashes or lesions noted Neuro: General: oriented to person and patient oriented x3 Cranial nerves: Yes CN's II-XII intact bilaterally Motor exam (neuro): 5/5 motor strength present throughout Sensory Exam: No Sensory deficit (Neuro) Extrem: General: Yes normal to inspection Psych: Appearance: grossly normal Course Reevaluation(s) Reevaluation #1: patient improved after hydration, zofran and meclizine. Will d ischarge with diagnosis of vertigo which she has had in the past Time: 07:45 Medical Decision Making Lab Data Result diagrams: 10/16/21 05:58 10/16/21 05:58 Labs: Lab Results 10/16/21 10/16/21 Range/Units 05:58 05:58 WBC 9.0 (4.8-10.8) X10*3/uL RBC 4.40 (4.20-5.50) X10*6/uL Hgb 12.3 (12.0-16.0) g/dl Hct 38.4 (37.0-47.0) % MCV 87.3 (80.0-98.0) fL MCH 28.0 (27.0-33.0) pg MCHC 32.0 (31.0-35.0) g/dl RDW 14.9 (11.0-16.0) % Plt Count 204 (160-400) X10*3/uL MPV 10.4 (9.4-12.3) fL Immature Gran % (Auto) 0.2 (0.0-0.4) % Neut % (Auto) 74.6 H (45-73) % Lymph % (Auto) 11.7 L (20-40) % [place] % (Auto) 12.1 H (2-11) % Eos % (Auto) 0.6 (0-4) % Baso % (Auto) 0.8 (0-2) % Lymph # (Auto) 1.1 L (1.2-4.9) X10*3/uL [place] # (Auto) 1.1 (0.1-1.2) X10*3/uL Eos # (Auto) 0.1 (0.0-0.4) X10*3/uL Baso # (Auto) 0.1 (0.0-0.2) X10*3/uL Abs Immat Gran (auto) 0.02 (0.00-0.03) X10*3/uL Absolute Neuts (auto) 6.7 (2.0-8.3) x10*3/uL Absolute Nucleated RBC 0.000 (0.0-0.012) X10*3/uL Nucleated RBC % (auto) 0.0 (0.0-0.2) /100WBC Sodium 134 L (135-145) mmol/L Potassium 4.5 (3.3-5.1) mmol/L Chloride 101 (96-108) mmol/L Carbon Dioxide 24 (22-29) mmol/L Anion Gap 14 (12-20) BUN 13 (9-16) mg/dL Creatinine 1.16 (0.5-1.4) mg/dL Estim Creat Clear Calc 50.8 Estimated GFR 47 Random Glucose 107 (60-115) mg/dL Calcium 8.8 D (8.4-10.2) mg/dL ECG Data Attestation: I personally reviewed and interpreted this ECG as follows: Interpretation: sinus 70, no st or twave changes Discharge Plan Discharge Clinical Impression: Vertigo Patient Disposition: Home, Self-Care Instructions: Vertigo (ED), Lightheadedness (ED) Prescriptions: New meclizine 25 mg tablet 25 mg PO TID PRN (Reason: dizziness) Qty: 20 RF: 0 ondansetron HCl [Zofran] 4 mg tablet 4 mg PO Q8H PRN (Reason: nausea and vomiting) Qty: 10 RF: 0 No Action hydrocortisone [Procto-Med HC] 2.5 % cream with perineal applicator 1 appl [place] BID-QID PRN (Reason: hemorrhoids) Qty: 30 RF: 3 docusate sodium 100 mg capsule 200 mg PO BEDTIME Qty: 60 RF: 5 pantoprazole 40 mg tablet,delayed release (DR/EC) 40 mg PO DAILY Qty: 30 RF: 2 albuterol sulfate 90 mcg/actuation HFA aerosol inhaler 2 puff inhalation Q4-6H PRN (Reason: shortness of breath or wheezing) Qty: 18 RF: 0 prednisone 10 mg tablet 10 mg PO BID 14 Days Qty: 28 RF: 0 fluticasone propion-salmeterol [Advair Diskus] 250-50 mcg/dose blister with device 1 inh inhalation Q12H 30 Days Qty: 60 RF: 3 clotrimazole 1 % cream 1 applic topical BID RF: 0 diphenhydramine HCl 25 mg tablet 25 mg PO BEDTIME PRN (Reason: allergy) RF: 0 Incruse Ellipta 62.5 mcg/actuation blister with device 62.5 inh inhalation DAILY RF: 0 cholecalciferol (vitamin D3) 50 mcg (2,000 unit) capsule 50 mcg PO BID RF: 0 montelukast 10 mg tablet 10 mg PO DAILY RF: 0 levothyroxine 100 mcg tablet 100 mcg PO DAILY RF: 0 cetirizine 10 mg tablet 10 mg PO DAILY RF: 0 citalopram 40 mg tablet 40 mg PO DAILY RF: 0 clonazepam 0.5 mg tablet 0.5 mg PO DAILY PRN (Reason: anxiety) RF: 0 fluticasone propionate 50 mcg/actuation spray,suspension 1 spray intranasal BID PRNRF: 0 budesonide 0.5 mg/2 mL suspension for nebulization 0.5 mg inhalation .q 6 h RF: 0 acetaminophen 650 mg tablet extended release 650 mg PO Q8H PRN (Reason: pain) RF: 0 tramadol 50 mg tablet 50 mg PO DAILY Qty: 30 RF: 2 Referrals: Physician,Unknown J [Primary Care Provider] - 5 days
[2021-10-16] MEDS: 0.9 % Sodium Chloride 1,000 ML 999 ML IVCONT (06:00)
[2021-10-16] MEDS: ondansetron HCL 4 MG/2 ML VIAL IVPUSH (06:00)
[2021-10-16 06:05] LABS: MANUAL DIFF FLAG NO
[2021-10-16 06:06] LABS: Basophils Absolute Auto 0.1 X10*3/uL (0.0-0.2); Basophils Percent Auto 0.8 % (0-2); Eosinophils Absolute Auto 0.1 X10*3/uL (0.0-0.4); Eosinophils Percent Auto 0.6 % (0-4); Hematocrit 38.4 % (37.0-47.0); Hemoglobin 12.3 g/dl (12.0-16.0); Imm Gran Abs Auto 0.02 X10*3/uL (0.00-0.03); Imm Gran Pct Auto 0.2 % (0.0-0.4); Lymphocytes Absolute Auto 1.1 X10*3/uL (1.2-4.9); Lymphocytes Percent Auto 11.7 % (20-40); Mean Corpuscular Volume 87.3 fL (80.0-98.0); Mean Platelet Volume 10.4 fL (9.4-12.3); Monocytes Absolute Auto 1.1 X10*3/uL (0.1-1.2); Monocytes Percent Auto 12.1 % (2-11); Neutrophils Absolute Auto 6.7 x10*3/uL (2.0-8.3); Neutrophils Percent Auto 74.6 % (45-73); Platelet Count 204 X10*3/uL (160-400); Red Cell Distribution Width 14.9 % (11.0-16.0)
[2021-10-16 06:17] LABS: Anion Gap 14 (12-20); Blood Urea Nitrogen 13 mg/dL (9-16); Calcium 8.8 mg/dL (8.4-10.2); Carbon Dioxide 24 mmol/L (22-29); Chloride 101 mmol/L (96-108); Creatinine Clr Calc Pharmacy 50.8; Estimated Glomerular Filt Rate 47; Glucose Random 107 mg/dL (60-115); Potassium 4.5 mmol/L (3.3-5.1); Sodium 134 mmol/L (135-145)
[2021-10-16] MEDS: Meclizine HCl 25 MG TABLET 50 MG PO (06:27)
[2021-10-16 07:05] VITALS: BP 144/73; PULSE 78; TEMP 36.9; O2SAT 95
--- NOTE | 2021-10-16 07:18 | ECG_ITS ---
Test Reason : DIZZINESS Blood Pressure : / mmHG Vent. Rate : 071 BPM Atrial Rate : 071 BPM P-R Int : 174 ms QRS Dur : 078 ms QT Int : 412 ms P-R-T Axes : 054 023 060 degrees QTc Int : 447 ms Normal sinus rhythm Normal ECG When compared with ECG of 29-OCT-2020 22:46, No significant change was found Referred By: Irving Gamboa Electronically Signed By:TALIA JARAMILLO MD
--- NOTE | 2021-10-16 08:28 | PC.NURSE ---
Pt reports feeling better, no dizziness with motion.. no neuro deficits. will increase fluids and f/u with PCP as needed.
== END 2021-10-16 08:32 | disposition home or self-care (01) ==
PROVIDERS: Emergency Provider Emergency Medicine
DX: R42 Dizziness and giddiness (principal); M79.10 Myalgia, unspecified site; R53.83 Other fatigue; R11.2 Nausea with vomiting, unspecified
CPT/HCPCS: 36415; 80048; 85025; 93005; 96361; 96374; 99284; J2405

== ENCOUNTER 2021-10-23 10:36 | Outpatient (REF) | payer MEDICARE, MEDICAID, SELFPAY ==
[2021-10-23 15:10] LABS: COVID-19 Test Positive (Negative); IDNOW Serial# 16C4AD1C
== END 2021-10-23 10:37 | disposition home or self-care (01) ==
LOC: HO.LAB 10:36
PROVIDERS: Visit Provider Internal Medicine
DX: Z20.822 Contact with and (suspected) exposure to COVID-19 (principal)
CPT/HCPCS: 36415; 87635; C9803

== ENCOUNTER 2021-10-30 18:46 | Emergency (ER) | payer MEDICARE, OTHER, SELFPAY ==
[2021-10-30 19:08] VITALS: BP 124/70; PULSE 89; RESP 20; TEMP 37.3; O2SAT 98; BMI 30.6
== END 2021-10-30 23:15 | disposition left against medical advice (07) ==
PROVIDERS: Emergency Provider Emergency Medicine
DX: U07.1 COVID-19 (principal); J45.909 Unspecified asthma, uncomplicated
CPT/HCPCS: 99281; 99282

== ENCOUNTER → 2021-11-25 15:02 | Outpatient (BNVA) | payer MEDICARE, OTHER, SELFPAY | PROVIDERS: PCP Pediatrics; Visit Provider Internal Medicine | DX: J44.9 Chronic obstructive pulmonary disease, unspecified (principal); J45.909 Unspecified asthma, uncomplicated; Z79.51 Long term (current) use of inhaled steroids; Z79.52 Long term (current) use of systemic steroids | CPT/HCPCS: Q3014 ==

== ENCOUNTER 2021-12-23 10:18 | Outpatient (REF) | payer MEDICARE, OTHER, SELFPAY ==
[2021-12-23 12:08] LABS: Baso%MD 0.8 %; Eos%MD 3.8 %; Hematocrit 37.8 % (37.0-47.0); Hemoglobin 11.7 g/dl (12.0-16.0); IG%MD 0.4 %; Lymph%MD 25.8 %; Mean Corpuscular Hemoglobin 27.5 pg (27.0-33.0); Mean Corpuscular Volume 88.9 fL (80.0-98.0); Mean Platelet Volume 11.5 fL (9.4-12.3); Mono%MD 9.5 %; Neut%MD 59.7 %; Platelet Count 230 X10*3/uL (160-400); Red Blood Count 4.25 X10*6/uL (4.20-5.50); Red Cell Distribution Width 14.8 % (11.0-16.0)
[2021-12-23 13:21] LABS: Band Neutrophils Percent 0 % (3-5); Eosinophils Absolute Manual 0.2 X10*3/uL (0.0-0.4); Eosinophils Percent Manual 2 % (0-4); Lymphocytes Absolute Manual 2.2 X10*3/uL (1.2-4.9); Lymphocytes Percent Manual 27 % (20-40); Monocytes Percent Manual 12 % (2-11); Neutrophils Absolute Manual 4.7 X10*3/uL (2.0-8.3); Neutrophils Percent Manual 59 % (45-73)
[2021-12-23 13:23] LABS: Platelet Estimate NORMAL (NORMAL); Platelet Morphology Comment NORMAL; RBC Morphology NORMAL
[2021-12-24 10:22] LABS: Immunoglobulin E 34 kU/L (<OR=114)
== END 2021-12-23 10:19 | disposition home or self-care (01) ==
LOC: HO.LAB 10:18
PROVIDERS: PCP Pediatrics; Visit Provider Internal Medicine
DX: J45.909 Unspecified asthma, uncomplicated (principal); J44.1 Chronic obstructive pulmonary disease with (acute) exacerbation; F41.9 Anxiety disorder, unspecified; Z79.51 Long term (current) use of inhaled steroids
CPT/HCPCS: 36415; 82785; 85007; 85027; 99212

== ENCOUNTER 2021-12-29 16:34 | Emergency (ER) | payer MEDICARE, OTHER, SELFPAY ==
--- NOTE | ~2021-12-29 | XR_ITS ---
EXAMINATION: XR CHEST CLINICAL INFORMATION: Shortness of breath COMPARISON: 06/06/2021 TECHNIQUE: Frontal view of the chest was obtained. FINDINGS: No significant abnormality is noted involving the heart, lungs, mediastinum, bony thorax or soft tissues. XR/XR chest 1V IMPRESSION: No acute pulmonary disease. No significant change from prior study.
[2021-12-29 16:40] VITALS: BP 130/80; PULSE 82; RESP 18; TEMP 36.9; O2SAT 95; BMI 30.4
--- NOTE | 2021-12-29 16:44 | ECG_ITS ---
Test Reason : SOB Blood Pressure : / mmHG Vent. Rate : 080 BPM Atrial Rate : 080 BPM P-R Int : 166 ms QRS Dur : 078 ms QT Int : 376 ms P-R-T Axes : 059 034 077 degrees QTc Int : 433 ms Normal sinus rhythm Normal ECG When compared with ECG of 16-OCT-2021 07:31, No significant change was found Referred By: Generic ED Physician Electronically Signed By:Frank Lion
--- NOTE | 2021-12-29 16:55 | ED.ASTHMA ---
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 Comes here for increased shortness of breath and dry cough no chest on arrival patient was saturating 95% at room air Related Data Home Medications Medication Instructions Recorded Confirmed cetirizine 10 mg tablet 10 mg PO DAILY 07/30/20 12/23/21 cholecalciferol (vitamin D3) 50 50 mcg PO BID 07/30/20 12/23/21 mcg (2,000 unit) capsule citalopram 40 mg tablet 40 mg PO DAILY 07/30/20 12/23/21 clonazepam 0.5 mg tablet 0.5 mg PO DAILY PRN 07/30/20 12/23/21 diphenhydramine HCl 25 mg tablet 25 mg PO BEDTIME PRN 07/30/20 12/23/21 levothyroxine 100 mcg tablet 100 mcg PO DAILY 07/30/20 12/23/21 montelukast 10 mg tablet 10 mg PO DAILY 07/30/20 12/23/21 umeclidinium 62.5 mcg/actuation 62.5 inh INHALATION BID 07/30/20 12/23/21 blister powder for inhalation (Incruse Ellipta) acetaminophen 650 mg 650 mg PO Q8H PRN 10/07/20 12/23/21 tablet,extended release budesonide 0.5 mg/2 mL suspension 0.5 mg INHALATION .q 6 h ml 10/07/20 12/23/21 for nebulization fluticasone propionate 50 1 spray INTRANASAL BID PRN 07/01/21 12/23/21 mcg/actuation nasal spray,suspension fluticasone 250 mcg-salmeterol 50 1 ea PO Q12H 11/25/21 12/23/21 mcg/dose blistr powdr for inhalation (Advair Diskus) methocarbamol 750 mg tablet 750 mg PO DAILY 11/25/21 12/23/21 tramadol 50 mg tablet 50 mg PO DAILY PRN 11/25/21 12/23/21 Previous Rx's Medication Instructions Recorded albuterol sulfate 90 mcg/actuation 2 puff INHALATION Q4-6H PRN #18 g 08/14/20 aerosol inhaler hydrocortisone 2.5 % topical cream 1 appl [place] BID-QID PRN #30 g 01/02/21 with perineal applicator (Procto-Med HC) docusate sodium 100 mg capsule 200 mg PO BEDTIME #60 cap 05/26/21 pantoprazole 40 mg tablet,delayed 40 mg PO DAILY #30 tab 10/01/21 release meclizine 25 mg tablet 25 mg PO TID PRN #20 tab 10/16/21 ondansetron HCl 4 mg tablet 4 mg PO Q8H PRN #10 tab 10/16/21 (Zofran) Allergies Allergy/AdvReac Type Severity Reaction Status Date / Time animal dander Allergy Mild SHORTNESS Verified 12/23/21 10:59 OF BREATH ciprofloxacin [From Cipro] Allergy Mild RASH Verified 12/23/21 10:59 vancomycin [Vancomycin] Allergy Mild SHORTNESS Verified 12/23/21 10:59 OF BREATH amoxicillin [AMOXICILLIN] Allergy Unknown RASH Verified 12/23/21 10:59 Penicillins [PENICILLINS] Allergy Unknown RASH Verified 12/23/21 10:59 Review of Systems Review of Systems: Yes all other systems are reviewed and are negative [facility] Past Medical History Medical History Acid reflux Acute anxiety Allergic rhinitis Anxiety Asthma Asthma dependent on inhaled steroids COPD (chronic obstructive pulmonary disease) COPD exacerbation Depression Diverticulosis large intestine w/o perforation or abscess w/o bleeding Diverticulosis of colon Hypothyroid Irritable bowel Tubular adenoma Tubular adenoma Surgical History H/O esophagogastroduodenoscopy (~12/2018) History of colonoscopy with polypectomy (~12/2018) History of mandibular surgery Hx of cholecystectomy Hx of tubal ligation Family History Family History Maternal Aunt Pancreatic cancer Maternal Grandmother Diabetes Stroke Maternal Grandfather Diabetes Mother COPD (chronic obstructive pulmonary disease) Father Respiratory failure Social History Social History Household Members: Spouse Household Members Other:: Lives with an 11-year-old granddaughter Alcohol intake: never Patient Tobacco Use Status: Never used Tobacco Advance Directives: No Advance Directives Information Provided: Yes Current occupational status: retired Physical Exam Vital Signs: Vital Signs: Last Vital Signs Temp 98.5 F 12/29/21 16:40 Pulse 77 12/29/21 18:41 Resp 20 12/29/21 17:34 BP 130/80 12/29/21 16:40 Pulse Ox 97 12/29/21 18:41 BMI result Body Mass Index 30.4 Appearance: Alert. Oriented X3. No acute distress. Eyes: No pallor or icterus ENT: Pharynx normal. Oral Mucosa moist Neck: Normal inspection. Neck supple. CVS: Normal heart rate and rhythm. Pulses normal. Respiratory: Speaking full sentences bilateral expiratory wheezing Equal air entry bilateral, no rales Abdomen: Soft and nontender. Bowel sounds are present, no mass palpable, no CVA tenderness Skin: Skin warm and dry. Normal skin color. Normal skin turgor. Extremities: No lower extremity edema. No calf tenderness Neuro: Oriented X 3. Course Reevaluation(s) Reevaluation #1: Patient complaining of sharp pain radiating from right faced to the right chest patient is tearful with similar attacks in the past when she gets anxiety was told because of anxiety she gets the pain will do a cardiogram and check the troponin give Ativan p.o. Time: 18:38 MDM - Asthma MDM Narrative Medical decision making narrative: Patient with stable asthma on prednisone will discharge patient home on 20 mg of prednisone daily advised to follow with a manager social responsibility Medical Records Attestation: I reviewed the patient's medical records. Lab Data Attestation: I reviewed the patient's lab results. Result diagrams: 12/29/21 17:36 12/29/21 17:36 Labs: Lab Results 12/29/21 12/29/21 12/29/21 Range/Units 17:36 17:36 17:36 WBC 11.2 H (4.8-10.8) X10*3/uL RBC 4.17 L (4.20-5.50) X10*6/uL Hgb 11.6 L (12.0-16.0) g/dl Hct 37.1 (37.0-47.0) % MCV 89.0 (80.0-98.0) fL MCH 27.8 (27.0-33.0) pg MCHC 31.3 (31.0-35.0) g/dl RDW 14.9 (11.0-16.0) % Plt Count 264 (160-400) X10*3/uL MPV 11.7 (9.4-12.3) fL Immature Gran % (Auto) 0.4 (0.0-0.4) % Neut % (Auto) 79.3 H (45-73) % Lymph % (Auto) 15.4 L (20-40) % [place] % (Auto) 4.1 (2-11) % Eos % (Auto) 0.3 (0-4) % Baso % (Auto) 0.5 (0-2) % Lymph # (Auto) 1.7 (1.2-4.9) X10*3/uL [place] # (Auto) 0.5 (0.1-1.2) X10*3/uL Eos # (Auto) 0.0 (0.0-0.4) X10*3/uL Baso # (Auto) 0.1 (0.0-0.2) X10*3/uL Abs Immat Gran (auto) 0.04 H (0.00-0.03) X10*3/uL Absolute Neuts (auto) 8.9 H (2.0-8.3) x10*3/uL Absolute Nucleated RBC 0.000 (0.0-0.012) X10*3/uL Nucleated RBC % (auto) 0.0 (0.0-0.2) /100WBC Sodium 140 (135-145) mmol/L Potassium 4.8 (3.3-5.1) mmol/L Chloride 104 (96-108) mmol/L Carbon Dioxide 29 (22-29) mmol/L Anion Gap 12 (12-20) BUN 21 H (9-16) mg/dL Creatinine 1.00 (0.5-1.4) mg/dL Estim Creat Clear Calc 58.8 Estimated GFR 55 Random Glucose 100 (60-115) mg/dL Calcium 9.5 (8.4-10.2) mg/dL Troponin I High Sens (<3.5-17.0) ng/L COVID-19 (DANIKA) Negative (Negative) COVID-19 Clin Com See Note 12/29/21 Range/Units 17:36 WBC (4.8-10.8) X10*3/uL RBC (4.20-5.50) X10*6/uL Hgb (12.0-16.0) g/dl Hct (37.0-47.0) % MCV (80.0-98.0) fL MCH (27.0-33.0) pg MCHC (31.0-35.0) g/dl RDW (11.0-16.0) % Plt Count (160-400) X10*3/uL MPV (9.4-12.3) fL Immature Gran % (Auto) (0.0-0.4) % Neut % (Auto) (45-73) % Lymph % (Auto) (20-40) % [place] % (Auto) (2-11) % Eos % (Auto) (0-4) % Baso % (Auto) (0-2) % Lymph # (Auto) (1.2-4.9) X10*3/uL [place] # (Auto) (0.1-1.2) X10*3/uL Eos # (Auto) (0.0-0.4) X10*3/uL Baso # (Auto) (0.0-0.2) X10*3/uL Abs Immat Gran (auto) (0.00-0.03) X10*3/uL Absolute Neuts (auto) (2.0-8.3) x10*3/uL Absolute Nucleated RBC (0.0-0.012) X10*3/uL Nucleated RBC % (auto) (0.0-0.2) /100WBC Sodium (135-145) mmol/L Potassium (3.3-5.1) mmol/L Chloride (96-108) mmol/L Carbon Dioxide (22-29) mmol/L Anion Gap (12-20) BUN (9-16) mg/dL Creatinine (0.5-1.4) mg/dL Estim Creat Clear Calc Estimated GFR Random Glucose (60-115) mg/dL Calcium (8.4-10.2) mg/dL Troponin I High Sens < 3.5 (<3.5-17.0) ng/L COVID-19 (DANIKA) (Negative) COVID-19 Clin Com Discharge Plan Discharge Clinical Impression: Acute anxiety, Asthma dependent on systemic steroids Patient Disposition: Home, Self-Care Instructions: Asthma (ED), Anxiety (ED) Additional Instructions: Continue your inhalers as prescribed by your manager social responsibility Increase the dose of prednisone to 20 mg daily for 5 days then switch back to 10 mg daily Report to ER if not better Prescriptions: No Action hydrocortisone [Procto-Med HC] 2.5 % cream with perineal applicator 1 appl [place] BID-QID PRN (Reason: hemorrhoids) Qty: 30 3RF docusate sodium 100 mg capsule 200 mg PO BEDTIME Qty: 60 5RF pantoprazole 40 mg tablet,delayed release (DR/EC) 40 mg PO DAILY Qty: 30 2RF albuterol sulfate 90 mcg/actuation HFA aerosol inhaler 2 puff inhalation Q4-6H PRN (Reason: shortness of breath or wheezing) Qty: 18 0RF tramadol 50 mg tablet 50 mg PO DAILY PRN (Reason: Pain) 0RF meclizine 25 mg tablet 25 mg PO TID PRN (Reason: dizziness) Qty: 20 0RF ondansetron HCl [Zofran] 4 mg tablet 4 mg PO Q8H PRN (Reason: nausea and vomiting) Qty: 10 0RF diphenhydramine HCl 25 mg tablet 25 mg PO BEDTIME PRN (Reason: allergy) 0RF Incruse Ellipta 62.5 mcg/actuation blister with device 62.5 inh inhalation BID 0RF cholecalciferol (vitamin D3) 50 mcg (2,000 unit) capsule 50 mcg PO BID 0RF montelukast 10 mg tablet 10 mg PO DAILY 0RF levothyroxine 100 mcg tablet 100 mcg PO DAILY 0RF cetirizine 10 mg tablet 10 mg PO DAILY 0RF citalopram 40 mg tablet 40 mg PO DAILY 0RF clonazepam 0.5 mg tablet 0.5 mg PO DAILY PRN (Reason: anxiety) 0RF fluticasone propionate 50 mcg/actuation spray,suspension 1 spray intranasal BID PRN (Reason: Nasal Congestion) 0RF budesonide 0.5 mg/2 mL suspension for nebulization 0.5 mg inhalation .q 6 h 0RF acetaminophen 650 mg tablet extended release 650 mg PO Q8H PRN (Reason: pain) 0RF methocarbamol 750 mg tablet 750 mg PO DAILY 0RF fluticasone propion-salmeterol [Advair Diskus] 250-50 mcg/dose blister with device 1 ea PO Q12H 0RF Interventions: ED Discharge Assessment Last Done: 12/29/21 19:43 Discharge Date/Time: 12/29/21 19:44
[2021-12-29 17:34] VITALS: PULSE 74; RESP 20; O2SAT 95
[2021-12-29] MEDS: Albuterol Sulfate (0.083%) 2.5 MG/3 ML VIAL.NEB INHALE (17:34)
[2021-12-29] MEDS: Albuterol/Iprat 2.5/0.5MG 3 ML AMPUL.NEB INHALE (17:34)
[2021-12-29 17:47] LABS: MANUAL DIFF FLAG NO
[2021-12-29 18:01] LABS: Anion Gap 12 (12-20); Blood Urea Nitrogen 21 mg/dL (9-16); Calcium 9.5 mg/dL (8.4-10.2); Carbon Dioxide 29 mmol/L (22-29); Chloride 104 mmol/L (96-108); Creatinine Clr Calc Pharmacy 58.8; Estimated Glomerular Filt Rate 55; Glucose Random 100 mg/dL (60-115); Potassium 4.8 mmol/L (3.3-5.1); Sodium 140 mmol/L (135-145)
[2021-12-29 18:05] LABS: COVID-19 Test Negative (Negative)
[2021-12-29 18:13] LABS: Basophils Absolute Auto 0.1 X10*3/uL (0.0-0.2); Basophils Percent Auto 0.5 % (0-2); Eosinophils Percent Auto 0.3 % (0-4); Hematocrit 37.1 % (37.0-47.0); Hemoglobin 11.6 g/dl (12.0-16.0); Imm Gran Abs Auto 0.04 X10*3/uL (0.00-0.03); Imm Gran Pct Auto 0.4 % (0.0-0.4); Lymphocytes Absolute Auto 1.7 X10*3/uL (1.2-4.9); Lymphocytes Percent Auto 15.4 % (20-40); Mean Corpuscular HGB Conc 31.3 g/dl (31.0-35.0); Mean Corpuscular Hemoglobin 27.8 pg (27.0-33.0); Mean Platelet Volume 11.7 fL (9.4-12.3); Monocytes Absolute Auto 0.5 X10*3/uL (0.1-1.2); Monocytes Percent Auto 4.1 % (2-11); Neutrophils Absolute Auto 8.9 x10*3/uL (2.0-8.3); Neutrophils Percent Auto 79.3 % (45-73); Platelet Count 264 X10*3/uL (160-400); Red Blood Count 4.17 X10*6/uL (4.20-5.50); Red Cell Distribution Width 14.9 % (11.0-16.0); White Blood Count 11.2 X10*3/uL (4.8-10.8)
--- NOTE | 2021-12-29 18:34 | ECG_ITS ---
Test Reason : ATHSMA Blood Pressure : / mmHG Vent. Rate : 079 BPM Atrial Rate : 079 BPM P-R Int : 162 ms QRS Dur : 080 ms QT Int : 398 ms P-R-T Axes : 054 012 057 degrees QTc Int : 456 ms Normal sinus rhythm Normal ECG When compared with ECG of 29-DEC-2021 16:42, No significant change was found Referred By: Stevan Rodriguez Electronically Signed By:Frank Lion
[2021-12-29] MEDS: predniSONE 20 MG TABLET 40 MG PO (18:38)
[2021-12-29 18:41] VITALS: PULSE 77; O2SAT 97
[2021-12-29] MEDS: LORazepam 1 MG TABLET PO (18:42)
[2021-12-29 19:11] LABS: Troponin-I High Sensitivity < 3.5 ng/L (<3.5-17.0)
== END 2021-12-29 19:44 | disposition home or self-care (01) ==
PROVIDERS: Emergency Provider Internal Medicine; PCP Pediatrics
DX: J45.909 Unspecified asthma, uncomplicated (principal); F41.9 Anxiety disorder, unspecified; Z20.822 Contact with and (suspected) exposure to COVID-19; Z79.51 Long term (current) use of inhaled steroids; Z79.52 Long term (current) use of systemic steroids
CPT/HCPCS: 71045; 80048; 84484; 85025; 87635; 93005; 94640; 94644; 99284

== ENCOUNTER 2022-01-05 12:41 | Outpatient (REF) | payer MEDICARE, OTHER, SELFPAY ==
--- NOTE | 2022-01-05 17:17 | PFT_ITS ---
Forced vital capacity 46%, FEV1 30%, FEV1/FVC ratio is 50. FEF 25-75 13% and MVV is 30%. Post bronchodilator therapy, there is a significant improvement in all parameters. Total lung capacity 103% and residual volume 156%, indicating some air trapping. Diffusion capacity is 76%. CONCLUSION: 1. Very severe obstructive airway disorder. 2. Partial reversibility after bronchodilator therapy is noted. 3. The findings are consistent with asthma/COPD overlap syndrome. 4. Clinical correlation is recommended. Gerald Eckert MD MSB/MODL / [id number]
== END 2022-01-05 12:42 | disposition home or self-care (01) ==
LOC: HO.RESP 12:41
PROVIDERS: PCP Pediatrics; Visit Provider Internal Medicine
DX: J44.9 Chronic obstructive pulmonary disease, unspecified (principal); J45.909 Unspecified asthma, uncomplicated; Z79.51 Long term (current) use of inhaled steroids
CPT/HCPCS: 94060; 94727; 94729; 99212

== ENCOUNTER 2022-02-04 11:03 | Emergency (ER) | payer MEDICARE, OTHER, SELFPAY ==
[2022-02-04 11:39] VITALS: BP 103/62; PULSE 120; RESP 20; TEMP 36.2; O2SAT 96; BMI 31.6
[2022-02-04 15:50] LABS: MANUAL DIFF FLAG NO
[2022-02-04 15:53] LABS: Basophils Percent Auto 0.1 % (0-2); Eosinophils Absolute Auto 0.1 X10*3/uL (0.0-0.4); Eosinophils Percent Auto 0.9 % (0-4); Hematocrit 40.3 % (37.0-47.0); Hemoglobin 12.7 g/dl (12.0-16.0); Imm Gran Abs Auto 0.01 X10*3/uL (0.00-0.03); Imm Gran Pct Auto 0.1 % (0.0-0.4); Lymphocytes Absolute Auto 0.7 X10*3/uL (1.2-4.9); Lymphocytes Percent Auto 10.9 % (20-40); Mean Corpuscular HGB Conc 31.5 g/dl (31.0-35.0); Mean Corpuscular Hemoglobin 27.6 pg (27.0-33.0); Mean Corpuscular Volume 87.6 fL (80.0-98.0); Mean Platelet Volume 10.8 fL (9.4-12.3); Monocytes Absolute Auto 0.7 X10*3/uL (0.1-1.2); Monocytes Percent Auto 10.7 % (2-11); Neutrophils Absolute Auto 5.3 x10*3/uL (2.0-8.3); Neutrophils Percent Auto 77.3 % (45-73); Platelet Count 209 X10*3/uL (160-400); Red Cell Distribution Width 14.4 % (11.0-16.0); White Blood Count 6.8 X10*3/uL (4.8-10.8)
[2022-02-04 16:11] LABS: Anion Gap 13 (12-20); Blood Urea Nitrogen 17 mg/dL (9-16); Carbon Dioxide 23 mmol/L (22-29); Chloride 104 mmol/L (96-108); Creatinine Clr Calc Pharmacy 44.5; Estimated Glomerular Filt Rate 41; Glucose Random 95 mg/dL (60-115); Sodium 136 mmol/L (135-145)
--- NOTE | 2022-02-04 18:14 | ED.NAVMDI ---
HPI - Nausea/Vomiting/Diarrhea General Chief complaint: Nausea/Vomiting/Diarrhea Stated complaint: vomiting/diarrhea for 3 days Time Seen by Provider: 02/04/22 18:03 Source: patient Mode of arrival: ambulatory Limitations: no limitations History of Present Illness HPI Narrative: Patient comes emergency room complaining of nausea, vomiting and diarrhea for 3 days. Patient has history of diverticulitis but states she has no abdominal pain at all. Patient states the vomiting and the diarrhea started 3 days ago, after she found out that her grandson had that trial and was sentenced to 25 years of custodial. Since then, patient has been able to hold anything, patient either throws up immediately or she has diarrhea almost immediately. Related Data Home Medications Medication Instructions Recorded Confirmed cetirizine 10 mg tablet 10 mg PO DAILY 07/30/20 01/05/22 cholecalciferol (vitamin D3) 50 50 mcg PO BID 07/30/20 01/05/22 mcg (2,000 unit) capsule citalopram 40 mg tablet 40 mg PO DAILY 07/30/20 01/05/22 clonazepam 0.5 mg tablet 0.5 mg PO DAILY PRN 07/30/20 01/05/22 diphenhydramine HCl 25 mg tablet 25 mg PO BEDTIME PRN 07/30/20 01/05/22 levothyroxine 100 mcg tablet 100 mcg PO DAILY 07/30/20 01/05/22 montelukast 10 mg tablet 10 mg PO DAILY 07/30/20 01/05/22 umeclidinium 62.5 mcg/actuation 62.5 inh INHALATION BID 07/30/20 01/05/22 blister powder for inhalation (Incruse Ellipta) acetaminophen 650 mg 650 mg PO Q8H PRN 10/07/20 01/05/22 tablet,extended release budesonide 0.5 mg/2 mL suspension 0.5 mg INHALATION .q 6 h ml 10/07/20 01/05/22 for nebulization fluticasone propionate 50 1 spray INTRANASAL BID PRN 07/01/21 01/05/22 mcg/actuation nasal spray,suspension fluticasone 250 mcg-salmeterol 50 1 ea PO Q12H 11/25/21 01/05/22 mcg/dose blistr powdr for inhalation (Advair Diskus) methocarbamol 750 mg tablet 750 mg PO DAILY 11/25/21 01/05/22 tramadol 50 mg tablet 50 mg PO DAILY PRN 11/25/21 01/05/22 Previous Rx's Medication Instructions Recorded albuterol sulfate 90 mcg/actuation 2 puff INHALATION Q4-6H PRN #18 g 08/14/20 aerosol inhaler hydrocortisone 2.5 % topical cream 1 appl [place] BID-QID PRN #30 g 01/02/21 with perineal applicator (Procto-Med ) docusate sodium 100 mg capsule 200 mg PO BEDTIME #60 cap 05/26/21 meclizine 25 mg tablet 25 mg PO TID PRN #20 tab 10/16/21 ondansetron HCl 4 mg tablet 4 mg PO Q8H PRN #10 tab 10/16/21 (Zofran) pantoprazole 40 mg tablet,delayed 40 mg PO DAILY #30 tab 01/01/22 release ipratropium 0.5 mg-albuterol 3 mg 3 ml INHALATION QID 30 Days #360 ml 01/05/22 (2.5 mg base)/3 mL nebulization soln prednisolone 5 mg tablet 5 mg PO BID 30 Days #60 tab 01/05/22 prednisone 5 mg tablet 5 mg PO BID 30 Days #60 tab 01/06/22 loperamide 2 mg capsule 2 mg PO Q6H PRN #10 cap 02/04/22 prochlorperazine maleate 10 mg 10 mg PO Q8H PRN #10 tab 02/04/22 tablet (Compazine) Allergies Allergy/AdvReac Type Severity Reaction Status Date / Time animal dander Allergy Mild SHORTNESS Verified 02/04/22 11:41 OF BREATH ciprofloxacin [From Cipro] Allergy Mild RASH Verified 02/04/22 11:41 vancomycin [Vancomycin] Allergy Mild SHORTNESS Verified 02/04/22 11:41 OF BREATH amoxicillin [AMOXICILLIN] Allergy Unknown RASH Verified 02/04/22 11:41 Penicillins [PENICILLINS] Allergy Unknown RASH Verified 02/04/22 11:41 Review of Systems Review of Systems: Constitutional : No Weight loss, No Fever, No Chills, No Night Sweats, No Fatigue, No Malaise ENT/Mouth : No Hearing loss, No Ear Pain, No Nasal Congestion, No Sinus Pain, No Hoarseness, No sore throat, No Rhinorrhea, No Swallowing Difficulty Eyes: No Eye Pain, No Swelling, No Redness, No Foreign Body, No Discharge, No Vision Changes Cardiovascular : No Chest Pain, No SOB, No Dyspnea on Exertion, No Orthopnea, No Edema, No Palpitations Respiratory : No Cough, No Sputum, No Wheezing, No Smoke Exposure, No Dyspnea Gastrointestinal : Complaining of nausea vomiting and diarrhea. No Constipation, No abdominal Pain, No Hematochezia, No Melena Genitourinary : no irregular bleeding, No Dysuria, No Urinary Frequency, No Hematuria, No Urinary Incontinence, No Urgency, No Flank Pain, No Urinary Flow Changes, No Hesitancy Musculoskeletal : No joint pain, No Myalgias, No Joint Swelling Skin : No Skin Lesions, No rash Neuro : No Weakness, No Numbness, No Paresthesias, No Loss of Consciousness, No Dizziness, No Headache Psych : Complaining of anxiety, No Depression, No SI/HI/AH/VH, No Social Issues, Heme/Lymph: No Bruising, No Bleeding,No Lymphadenopathy Endocrine : No Polyuria, No Polydipsia, No Temperature Intolerance [facility] Past Medical History Medical History Acid reflux Acute anxiety Allergic rhinitis Anxiety Asthma Asthma dependent on inhaled steroids Asthma-COPD overlap syndrome COPD (chronic obstructive pulmonary disease) COPD exacerbation Depression Diverticulosis large intestine w/o perforation or abscess w/o bleeding Diverticulosis of colon Hypothyroid Irritable bowel Tubular adenoma Tubular adenoma Surgical History H/O esophagogastroduodenoscopy (~12/2018) History of colonoscopy with polypectomy (~12/2018) History of mandibular surgery Hx of cholecystectomy Hx of tubal ligation Family History Family History Maternal Aunt Pancreatic cancer Maternal Grandmother Diabetes Stroke Maternal Grandfather Diabetes Mother COPD (chronic obstructive pulmonary disease) Father Respiratory failure Social History Social History Household Members: Spouse Household Members Other:: Lives with an 11-year-old granddaughter Alcohol intake: never Patient Tobacco Use Status: Never used Tobacco Use of substances other than those prescribed or required for medical reasons: No Advance Directives: No Advance Directives Information Provided: No Current occupational status: retired Physical Exam Vital Signs: Vital Signs: Last Vital Signs Temp 99.5 F 02/04/22 20:00 Pulse 94 02/04/22 20:00 Resp 16 02/04/22 20:00 BP 120/65 02/04/22 20:00 Pulse Ox 98 02/04/22 20:00 BMI result Body Mass Index 31.6 Const: Other: Appearance: Alert. Oriented X3. Slightly anxious Eyes: Pupils equal, round and reactive to light. ENT: Pharynx normal. Neck: Normal inspection. Neck supple. No lymph nodes noted. No crepitus CVS: Tachycardia, heart rate 120s, regular rhythm. Pulses normal. Normal S1 and S2 Respiratory: No respiratory distress. Breath sounds normal. No Wheezing. No rales Abdomen: Soft and nontender. No rigidity. No distention. No guarding, no rebound Skin: Skin warm and dry. Normal skin color. Normal skin turgor. Extremities: No lower extremity edema. No Lacerations. No Rash Neuro: Oriented X 3. No motor deficit. No sensory deficit. Moving all extremities. No slurred speech. CN 2 through 12 grossly intact Psych: calm, cooperative, slightly anxious, teary Course Course Course Narrative: After IV hydration, Zofran and Compazine patient states that she feels much better. Patient has no abdominal pain. Patient was p.o. challenged, patient overall feeling better. And states that she feels well enough to go home MDM - Nausea/Vomiting/Diarrhea Lab Data Result diagrams: 02/04/22 15:44 02/04/22 15:44 Labs: Lab Results 02/04/22 02/04/22 Range/Units 15:44 15:44 WBC 6.8 (4.8-10.8) X10*3/uL RBC 4.60 (4.20-5.50) X10*6/uL Hgb 12.7 (12.0-16.0) g/dl Hct 40.3 (37.0-47.0) % MCV 87.6 (80.0-98.0) fL MCH 27.6 (27.0-33.0) pg MCHC 31.5 (31.0-35.0) g/dl RDW 14.4 (11.0-16.0) % Plt Count 209 (160-400) X10*3/uL MPV 10.8 (9.4-12.3) fL Immature Gran % (Auto) 0.1 (0.0-0.4) % Neut % (Auto) 77.3 H (45-73) % Lymph % (Auto) 10.9 L (20-40) % [place] % (Auto) 10.7 (2-11) % Eos % (Auto) 0.9 (0-4) % Baso % (Auto) 0.1 (0-2) % Lymph # (Auto) 0.7 L (1.2-4.9) X10*3/uL [place] # (Auto) 0.7 (0.1-1.2) X10*3/uL Eos # (Auto) 0.1 (0.0-0.4) X10*3/uL Baso # (Auto) 0.0 (0.0-0.2) X10*3/uL Abs Immat Gran (auto) 0.01 (0.00-0.03) X10*3/uL Absolute Neuts (auto) 5.3 (2.0-8.3) x10*3/uL Absolute Nucleated RBC 0.000 (0.0-0.012) X10*3/uL Nucleated RBC % (auto) 0.0 (0.0-0.2) /100WBC Sodium 136 (135-145) mmol/L Potassium 4.0 (3.3-5.1) mmol/L Chloride 104 (96-108) mmol/L Carbon Dioxide 23 (22-29) mmol/L Anion Gap 13 (12-20) BUN 17 H (9-16) mg/dL Creatinine 1.30 (0.5-1.4) mg/dL Estim Creat Clear Calc 44.5 Estimated GFR 41 Random Glucose 95 (60-115) mg/dL Calcium 9.0 (8.4-10.2) mg/dL Total Bilirubin 0.4 (0.0-1.0) mg/dL Direct Bilirubin 0.2 (0.0-0.5) mg/dL AST 31 D (5-31) U/L ALT 35 H (0-31) U/L Alkaline Phosphatase 118 H (39-117) U/L Total Protein 6.7 (6.5-8.0) g/dL Albumin 3.9 (3.5-5.0) g/dL Lipase 5 L (8-78) U/L Discharge Plan Discharge Clinical Impression: Nausea vomiting and diarrhea Patient Disposition: Home, Self-Care Instructions: Acute Nausea and Vomiting (ED) Additional Instructions: Please follow-up with your primary care physician tomorrow. If you have any worsening or new symptoms, please return to the emergency room or call 911 Prescriptions: New prochlorperazine maleate [Compazine] 10 mg tablet 10 mg PO Q8H PRN (Reason: nausea and vomiting) Qty: 10 0RF loperamide 2 mg capsule 2 mg PO Q6H PRN (Reason: loose stool) Qty: 10 0RF No Action hydrocortisone [Procto-Med HC] 2.5 % cream with perineal applicator 1 appl [place] BID-QID PRN (Reason: hemorrhoids) Qty: 30 3RF docusate sodium 100 mg capsule 200 mg PO BEDTIME Qty: 60 5RF pantoprazole 40 mg tablet,delayed release (DR/EC) 40 mg PO DAILY Qty: 30 2RF prednisone 5 mg tablet 5 mg PO BID 30 Days Qty: 60 3RF albuterol sulfate 90 mcg/actuation HFA aerosol inhaler 2 puff inhalation Q4-6H PRN (Reason: shortness of breath or wheezing) Qty: 18 0RF tramadol 50 mg tablet 50 mg PO DAILY PRN (Reason: Pain) 0RF meclizine 25 mg tablet 25 mg PO TID PRN (Reason: dizziness) Qty: 20 0RF ondansetron HCl [Zofran] 4 mg tablet 4 mg PO Q8H PRN (Reason: nausea and vomiting) Qty: 10 0RF diphenhydramine HCl 25 mg tablet 25 mg PO BEDTIME PRN (Reason: allergy) 0RF Incruse Ellipta 62.5 mcg/actuation blister with device 62.5 inh inhalation BID 0RF cholecalciferol (vitamin D3) 50 mcg (2,000 unit) capsule 50 mcg PO BID 0RF montelukast 10 mg tablet 10 mg PO DAILY 0RF levothyroxine 100 mcg tablet 100 mcg PO DAILY 0RF cetirizine 10 mg tablet 10 mg PO DAILY 0RF citalopram 40 mg tablet 40 mg PO DAILY 0RF clonazepam 0.5 mg tablet 0.5 mg PO DAILY PRN (Reason: anxiety) 0RF fluticasone propionate 50 mcg/actuation spray,suspension 1 spray intranasal BID PRN (Reason: Nasal Congestion) 0RF budesonide 0.5 mg/2 mL suspension for nebulization 0.5 mg inhalation .q 6 h 0RF acetaminophen 650 mg tablet extended release 650 mg PO Q8H PRN (Reason: pain) 0RF methocarbamol 750 mg tablet 750 mg PO DAILY 0RF fluticasone propion-salmeterol [Advair Diskus] 250-50 mcg/dose blister with device 1 ea PO Q12H 0RF prednisolone 5 mg tablet 5 mg PO BID 30 Days Qty: 60 1RF ipratropium-albuterol 0.5 mg-3 mg(2.5 mg base)/3 mL solution for nebulization 3 ml inhalation QID 30 Days Qty: 360 3RF
[2022-02-04 18:31] VITALS: BP 120/70; PULSE 108; RESP 16; TEMP 37.6; O2SAT 96
[2022-02-04 18:35] LABS: Alanine Aminotransferase 35 U/L (0-31); Albumin Level 3.9 g/dL (3.5-5.0); Alkaline Phosphatase 118 U/L (39-117); Aspartate Amino Transferase 31 U/L (5-31); Bilirubin Direct 0.2 mg/dL (0.0-0.5); Bilirubin Total 0.4 mg/dL (0.0-1.0); Lipase 5 U/L (8-78); Total Protein 6.7 g/dL (6.5-8.0)
[2022-02-04] MEDS: 0.9 % Sodium Chloride 1,000 ML 999 ML IVCONT (18:55)
[2022-02-04] MEDS: Loperamide HCl 2 MG CAPSULE 4 MG PO (18:55)
[2022-02-04] MEDS: ondansetron HCL 4 MG/2 ML VIAL IVPUSH (18:55)
[2022-02-04 20:00] VITALS: BP 120/65; PULSE 94; RESP 16; TEMP 37.5; O2SAT 98
[2022-02-04] MEDS: Prochlorperazine Edisylate 10 MG/2 ML VIAL IVPUSH (20:32)
== END 2022-02-04 21:21 | disposition home or self-care (01) ==
PROVIDERS: Emergency Provider Emergency Medicine
DX: R11.2 Nausea with vomiting, unspecified (principal); R19.7 Diarrhea, unspecified; Z79.899 Other long term (current) drug therapy
CPT/HCPCS: 36415; 80048; 80076; 83690; 85025; 96361; 96374; 96375; 99284; J2405

== ENCOUNTER → 2022-02-10 14:16 | Outpatient (BNVA) | payer MEDICARE, OTHER, SELFPAY | PROVIDERS: PCP Pediatrics; Visit Provider Internal Medicine | DX: J44.9 Chronic obstructive pulmonary disease, unspecified (principal); J30.9 Allergic rhinitis, unspecified; F41.9 Anxiety disorder, unspecified | CPT/HCPCS: 99212 ==

== ENCOUNTER → 2022-04-15 13:43 | Outpatient (BNVA) | payer MEDICARE, OTHER, SELFPAY | PROVIDERS: PCP Pediatrics; Visit Provider Internal Medicine | DX: J44.9 Chronic obstructive pulmonary disease, unspecified (principal); J30.9 Allergic rhinitis, unspecified; F41.9 Anxiety disorder, unspecified; Z79.52 Long term (current) use of systemic steroids | CPT/HCPCS: 99212 ==

== ENCOUNTER 2022-04-18 06:46 | Emergency (ER) | payer MEDICARE, OTHER, SELFPAY ==
--- NOTE | ~2022-04-18 | XR_ITS ---
EXAMINATION: XR CHEST CLINICAL INFORMATION: Chest pain. COMPARISON: Most recent chest radiograph dated 12/29/2021. TECHNIQUE: Frontal view of the chest was obtained. FINDINGS: The lungs are clear. The cardiomediastinal silhouette is normal in size. There is no pleural effusion or pneumothorax. No acute osseous abnormality. XR/XR chest 1V IMPRESSION: No acute cardiopulmonary findings.
--- NOTE | 2022-04-18 06:49 | ECG_ITS ---
Test Reason : CP Blood Pressure : / mmHG Vent. Rate : 084 BPM Atrial Rate : 084 BPM P-R Int : 188 ms QRS Dur : 076 ms QT Int : 370 ms P-R-T Axes : 074 042 065 degrees QTc Int : 437 ms Normal sinus rhythm Normal ECG When compared with ECG of 29-DEC-2021 18:44, No significant change was found Referred By: Generic ED Physician Electronically Signed By:Frank Lion
[2022-04-18 06:55] VITALS: BP 133/86; PULSE 90; RESP 20; TEMP 36.6; O2SAT 97; BMI 30.7
[2022-04-18 07:25] LABS: MANUAL DIFF FLAG NO
[2022-04-18 07:27] LABS: Basophils Absolute Auto 0.1 X10*3/uL (0.0-0.2); Basophils Percent Auto 0.6 % (0-2); Eosinophils Absolute Auto 0.1 X10*3/uL (0.0-0.4); Eosinophils Percent Auto 0.9 % (0-4); Hematocrit 38.6 % (37.0-47.0); Imm Gran Abs Auto 0.06 X10*3/uL (0.00-0.03); Imm Gran Pct Auto 0.4 % (0.0-0.4); Lymphocytes Absolute Auto 3.7 X10*3/uL (1.2-4.9); Lymphocytes Percent Auto 26.7 % (20-40); Mean Corpuscular HGB Conc 31.1 g/dl (31.0-35.0); Mean Corpuscular Hemoglobin 27.5 pg (27.0-33.0); Mean Corpuscular Volume 88.5 fL (80.0-98.0); Mean Platelet Volume 10.2 fL (9.4-12.3); Neutrophils Percent Auto 64.4 % (45-73); Platelet Count 260 X10*3/uL (160-400); Red Blood Count 4.36 X10*6/uL (4.20-5.50); Red Cell Distribution Width 15.3 % (11.0-16.0); White Blood Count 13.9 X10*3/uL (4.8-10.8)
[2022-04-18 07:43] LABS: Anion Gap 12 (12-20); Blood Urea Nitrogen 16 mg/dL (9-16); Calcium 8.9 mg/dL (8.4-10.2); Carbon Dioxide 29 mmol/L (22-29); Chloride 105 mmol/L (96-108); Creatinine Clr Calc Pharmacy 55.6; Estimated Glomerular Filt Rate 52; Glucose Random 87 mg/dL (60-115); Potassium 4.3 mmol/L (3.3-5.1); Sodium 142 mmol/L (135-145)
[2022-04-18 07:44] LABS: COVID-19 Test Negative (Negative)
[2022-04-18 07:51] LABS: Troponin-I High Sensitivity < 3.5 ng/L (<3.5-17.0)
--- NOTE | 2022-04-18 08:21 | ED_ITS ---
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 Otherwise, she denies any fever, chills, recent cough, belly pain or urinary symptoms and patient is currently asymptomatic. Related Data Home Medications Medication Instructions Recorded Confirmed cetirizine 10 mg tablet 10 mg PO DAILY 07/30/20 04/15/22 cholecalciferol (vitamin D3) 50 50 mcg PO BID 07/30/20 04/15/22 mcg (2,000 unit) capsule citalopram 40 mg tablet 40 mg PO DAILY 07/30/20 04/15/22 clonazepam 0.5 mg tablet 0.5 mg PO DAILY PRN anxiety 07/30/20 04/15/22 diphenhydramine HCl 25 mg tablet 25 mg PO BEDTIME PRN allergy 07/30/20 04/15/22 levothyroxine 100 mcg tablet 100 mcg PO DAILY 07/30/20 04/15/22 montelukast 10 mg tablet 10 mg PO DAILY 07/30/20 04/15/22 umeclidinium 62.5 mcg/actuation 62.5 inh inhalation BID 07/30/20 04/15/22 blister powder for inhalation (Incruse Ellipta) acetaminophen 650 mg 650 mg PO Q8H PRN pain 10/07/20 04/15/22 tablet,extended release budesonide 0.5 mg/2 mL suspension 0.5 mg inhalation .q 6 h 10/07/20 04/15/22 for nebulization fluticasone propionate 50 1 spray intranasal BID PRN Nasal 07/01/21 04/15/22 mcg/actuation nasal Congestion spray,suspension tramadol 50 mg tablet 50 mg PO DAILY PRN Pain 11/25/21 04/15/22 Previous Rx's Medication Instructions Recorded albuterol sulfate 90 mcg/actuation 2 puff inhalation Q4-6H PRN 08/14/20 aerosol inhaler shortness of breath or wheezing #18 grams hydrocortisone 2.5 % topical cream 1 appl NM BID-QID PRN hemorrhoids 01/02/21 with perineal applicator #30 grams (Procto-Med HC) docusate sodium 100 mg capsule 200 mg PO BEDTIME #60 caps 05/26/21 meclizine 25 mg tablet 25 mg PO TID PRN dizziness #20 tabs 10/16/21 ondansetron HCl 4 mg tablet 4 mg PO Q8H PRN nausea and 10/16/21 (Zofran) vomiting #10 tabs pantoprazole 40 mg tablet,delayed 40 mg PO DAILY #30 tabs 01/01/22 release ipratropium 0.5 mg-albuterol 3 mg 3 ml inhalation QID severe 01/05/22 (2.5 mg base)/3 mL nebulization copd/asthma 30 days #360 mL soln loperamide 2 mg capsule 2 mg PO Q6H PRN loose stool #10 02/04/22 caps prochlorperazine maleate 10 mg 10 mg PO Q8H PRN nausea and 02/04/22 tablet (Compazine) vomiting #10 tabs prednisone 5 mg tablet 5 mg PO BID severe COPD 30 days 02/12/22 #60 tabs prednisone 5 mg tablet 5 mg PO BID COPD/asthma 30 days 04/15/22 #60 tabs Allergies Allergy/AdvReac Type Severity Reaction Status Date / Time animal dander Allergy Mild SHORTNESS Verified 04/15/22 14:20 OF BREATH ciprofloxacin [From Cipro] Allergy Mild RASH Verified 04/15/22 14:20 vancomycin [Vancomycin] Allergy Mild SHORTNESS Verified 04/15/22 14:20 OF BREATH amoxicillin [AMOXICILLIN] Allergy Unknown RASH Verified 04/15/22 14:20 Penicillins [PENICILLINS] Allergy Unknown RASH Verified 04/15/22 14:20 Review of Systems Review of Systems: Pertinent positives and negatives as stated in HPI 10 point review of systems is otherwise negative. [facility] Past Medical History Source: nursing notes reviewed Medical History Asthma Hypothyroid Tubular adenoma Surgical History H/O esophagogastroduodenoscopy (~12/2018) History of colonoscopy with polypectomy (~12/2018) History of mandibular surgery Hx of cholecystectomy Hx of tubal ligation Family History Family History Maternal Aunt Pancreatic cancer Maternal Grandmother Diabetes Stroke Maternal Grandfather Diabetes Mother COPD (chronic obstructive pulmonary disease) Father Respiratory failure Social History Social History Household Members: Spouse Household Members Other:: Lives with an 11-year-old granddaughter Alcohol intake: never Patient Tobacco Use Status: Never used Tobacco Advance Directives: Yes Advance Directives Information Provided: Yes Advance Directives on File: No Current occupational status: retired Physical Exam Vital Signs: Vital Signs: Last Vital Signs Temp 98 F 04/18/22 06:55 Pulse 90 04/18/22 06:55 Resp 20 04/18/22 06:55 BP 133/86 04/18/22 06:55 Pulse Ox 97 04/18/22 06:55 O2 Del Method 04/18/22 06:55 BMI result Body Mass Index 30.7 VITAL SIGNS: Reviewed. GENERAL: Well developed, well nourished, in no acute distress. HEAD: Normocephalic/atraumatic EYES: PERRLA, EOMI EARS: Ext canals without abnormality OROPHARYNX: no oral lesions noted, posterior pharynx clear LUNGS: Normal breath sounds, no tachypnea/rales/ rhonchi/wheezing. SpO2<97> , no chest wall tenderness CARDIOVASCULAR: Regular rate and rhythm without noted murmurs, no JVD or lower extremity edema, no carotid bruits appreciated. ABDOMEN: Soft, non-tender, non-distended with bowel sounds. MUSCULOSKELETAL: No tenderness, deformities, or effusions noted on gross inspection. EXTREMITIES: No cyanosis, clubbing or edema. SKIN: Inspection of the skin reveals no rashes NEUROLOGIC: Alert and oriented x 4. Strength and sensation to light touch were grossly intact x 4. Course Course Course Narrative: 67-year-old female with history and clinical presentation suggestive of possible GERD or costochondritis, will rule out more concerning diagnoses such as cardiopulmonary but low clinical suspicion for PE or cardiac ischemia, patient on review of documentation has had a screening mammogram in 08/2021 so I do not suspect breast pathology. review of all investigations is otherwise ne gative for acute findings. There is a leukocytosis that is noted, however patient was recently started on b.i.d. dosing of steroids on 04/15. Patient remains asymptomatic without chest pain and is otherwise discharged home in stable condition. MDM - Chest Pain Lab Data Result diagrams: 04/18/22 07:14 04/18/22 07:14 Labs: Lab Results 04/18/22 04/18/22 04/18/22 Range/Units 07:14 07:14 07:14 WBC 13.9 H (4.8-10.8) X10*3/uL RBC 4.36 (4.20-5.50) X10*6/uL Hgb 12.0 (12.0-16.0) g/dl Hct 38.6 (37.0-47.0) % MCV 88.5 (80.0-98.0) fL MCH 27.5 (27.0-33.0) pg MCHC 31.1 (31.0-35.0) g/dl RDW 15.3 (11.0-16.0) % Plt Count 260 (160-400) X10*3/uL MPV 10.2 (9.4-12.3) fL Immature Gran % (Auto) 0.4 (0.0-0.4) % Neut % (Auto) 64.4 (45-73) % Lymph % (Auto) 26.7 (20-40) % [place] % (Auto) 7.0 (2-11) % Eos % (Auto) 0.9 (0-4) % Baso % (Auto) 0.6 (0-2) % Lymph # (Auto) 3.7 (1.2-4.9) X10*3/uL [place] # (Auto) 1.0 (0.1-1.2) X10*3/uL Eos # (Auto) 0.1 (0.0-0.4) X10*3/uL Baso # (Auto) 0.1 (0.0-0.2) X10*3/uL Abs Immat Gran (auto) 0.06 H (0.00-0.03) X10*3/uL Absolute Neuts (auto) 9.0 H (2.0-8.3) x10*3/uL Absolute Nucleated RBC 0.000 (0.0-0.012) X10*3/uL Nucleated RBC % (auto) 0.0 (0.0-0.2) /100WBC Sodium 142 (135-145) mmol/L Potassium 4.3 (3.3-5.1) mmol/L Chloride 105 (96-108) mmol/L Carbon Dioxide 29 (22-29) mmol/L Anion Gap 12 (12-20) BUN 16 (9-16) mg/dL Creatinine 1.05 (0.5-1.4) mg/dL Estim Creat Clear Calc 55.6 Estimated GFR 52 Random Glucose 87 (60-115) mg/dL Calcium 8.9 (8.4-10.2) mg/dL Troponin I High Sens < 3.5 (<3.5-17.0) ng/L COVID-19 (DANIKA) (Negative) COVID-19 Clin Com 04/18/22 Range/Units 07:14 WBC (4.8-10.8) X10*3/uL RBC (4.20-5.50) X10*6/uL Hgb (12.0-16.0) g/dl Hct (37.0-47.0) % MCV (80.0-98.0) fL MCH (27.0-33.0) pg MCHC (31.0-35.0) g/dl RDW (11.0-16.0) % Plt Count (160-400) X10*3/uL MPV (9.4-12.3) fL Immature Gran % (Auto) (0.0-0.4) % Neut % (Auto) (45-73) % Lymph % (Auto) (20-40) % [place] % (Auto) (2-11) % Eos % (Auto) (0-4) % Baso % (Auto) (0-2) % Lymph # (Auto) (1.2-4.9) X10*3/uL [place] # (Auto) (0.1-1.2) X10*3/uL Eos # (Auto) (0.0-0.4) X10*3/uL Baso # (Auto) (0.0-0.2) X10*3/uL Abs Immat Gran (auto) (0.00-0.03) X10*3/uL Absolute Neuts (auto) (2.0-8.3) x10*3/uL Absolute Nucleated RBC (0.0-0.012) X10*3/uL Nucleated RBC % (auto) (0.0-0.2) /100WBC Sodium (135-145) mmol/L Potassium (3.3-5.1) mmol/L Chloride (96-108) mmol/L Carbon Dioxide (22-29) mmol/L Anion Gap (12-20) BUN (9-16) mg/dL Creatinine (0.5-1.4) mg/dL Estim Creat Clear Calc Estimated GFR Random Glucose (60-115) mg/dL Calcium (8.4-10.2) mg/dL Troponin I High Sens (<3.5-17.0) ng/L COVID-19 (DANIKA) Negative (Negative) COVID-19 Clin Com See Note ECG Data ECG #1: Attestation: I personally reviewed and interpreted this ECG as follows: Prior ECG tracings: available for review Interpretation: Normal sinus rhythm, HR- 79, no STEMI, NM / QRS / QTC is within normal limits. Discharge Plan Discharge Clinical Impression: Atypical chest pain, COPD (chronic obstructive pulmonary disease), Costochondritis Patient Disposition: Home, Self-Care Instructions: Costochondritis (ED), Chest Wall Pain (ED) Additional Instructions: 1. Reanudar todos los medicamentos caseros seg?n lo prescrito. 2. Recomendar Tylenol/ibuprofeno de venta boris seg?n sea necesario para controlar el dolor. 3. Recomendar un seguimiento con montiel proveedor de atenci?n primaria en los pr?ximos 2 a 3 d?as para abel reevaluaci?n adicional del manejo ambulatorio. Discutida posibilidad de derivaci?n a cardiolog?a. Regrese a la johan de emergencias si los s?ntomas empeoran. Prescriptions: No Action hydrocortisone [Procto-Med HC] 2.5 % cream with perineal applicator 1 appl NM BID-QID PRN (Reason: hemorrhoids) Qty: 30 3RF docusate sodium 100 mg capsule 200 mg PO BEDTIME Qty: 60 5RF pantoprazole 40 mg tablet,delayed release (DR/EC) 40 mg PO DAILY Qty: 30 2RF albuterol sulfate 90 mcg/actuation HFA aerosol inhaler 2 puff inhalation Q4-6H PRN (Reason: shortness of breath or wheezing) Qty: 18 0RF tramadol 50 mg tablet 50 mg PO DAILY PRN (Reason: Pain) prochlorperazine maleate [Compazine] 10 mg tablet 10 mg PO Q8H PRN (Reason: nausea and vomiting) Qty: 10 0RF loperamide 2 mg capsule 2 mg PO Q6H PRN (Reason: loose stool) Qty: 10 0RF meclizine 25 mg tablet 25 mg PO TID PRN (Reason: dizziness) Qty: 20 0RF ondansetron HCl [Zofran] 4 mg tablet 4 mg PO Q8H PRN (Reason: nausea and vomiting) Qty: 10 0RF diphenhydramine HCl 25 mg tablet 25 mg PO BEDTIME PRN (Reason: allergy) Incruse Ellipta 62.5 mcg/actuation blister with device 62.5 inh inhalation BID cholecalciferol (vitamin D3) 50 mcg (2,000 unit) capsule 50 mcg PO BID montelukast 10 mg tablet 10 mg PO DAILY levothyroxine 100 mcg tablet 100 mcg PO DAILY cetirizine 10 mg tablet 10 mg PO DAILY citalopram 40 mg tablet 40 mg PO DAILY clonazepam 0.5 mg tablet 0.5 mg PO DAILY PRN (Reason: anxiety) fluticasone propionate 50 mcg/actuation spray,suspension 1 spray intranasal BID PRN (Reason: Nasal Congestion) budesonide 0.5 mg/2 mL suspension for nebulization 0.5 mg inhalation .q 6 h acetaminophen 650 mg tablet extended release 650 mg PO Q8H PRN (Reason: pain) prednisone 5 mg tablet 5 mg PO BID 30 Days Qty: 60 3RF ipratropium-albuterol 0.5 mg-3 mg(2.5 mg base)/3 mL solution for nebulization 3 ml inhalation QID 30 Days Qty: 360 3RF prednisone 5 mg tablet 5 mg PO BID 30 Days Qty: 60 3RF Referrals: Sosa Clement MD [Primary Care Provider] - Print Language: Pashto
[2022-04-18] MEDS: Ibuprofen 400 MG TABLET PO (08:41)
[2022-04-18] MEDS: Acetaminophen 325 MG TABLET 975 MG PO (08:41)
[2022-04-18 08:44] VITALS: BP 129/80; PULSE 76; RESP 18; O2SAT 98
== END 2022-04-18 09:13 | disposition home or self-care (01) ==
PROVIDERS: Emergency Provider Student in an Organized Health Care Education/Training Program; PCP Pediatrics
DX: R07.89 Other chest pain (principal); M94.0 Chondrocostal junction syndrome [Tietze]; J44.9 Chronic obstructive pulmonary disease, unspecified; Z20.822 Contact with and (suspected) exposure to COVID-19
CPT/HCPCS: 36415; 71045; 80048; 84484; 85025; 87635; 93005; 99284

== ENCOUNTER → 2022-07-09 14:46 | Outpatient (BNVA) | payer MEDICARE, MEDICAID, SELFPAY | PROVIDERS: PCP Pediatrics; Visit Provider Physician Assistant | DX: K57.30 Diverticulosis of large intestine without perforation or abscess without bleeding (principal); K21.9 Gastro-esophageal reflux disease without esophagitis; Z86.010 Personal history of colon polyps | CPT/HCPCS: 99212 ==

== ENCOUNTER 2022-10-02 07:06 | Emergency (ER) | payer MEDICARE, MEDICAID, SELFPAY ==
--- NOTE | ~2022-10-02 | XR_ITS ---
EXAMINATION: XR CHEST CLINICAL INFORMATION: Asthma. COMPARISON: 04/18/2022 chest radiograph. TECHNIQUE: Frontal view of the chest was obtained. FINDINGS: No significant abnormality is noted involving the heart, lungs, mediastinum, bony thorax or soft tissues. Surgical clips overlie the soft tissues of the left axilla. XR/XR chest 1V IMPRESSION: No acute cardiopulmonary process.
[2022-10-02 07:08] VITALS: BP 102/80; PULSE 99; RESP 18; TEMP 36.7; O2SAT 97; BMI 31.8
[2022-10-02 07:16] VITALS: PULSE 100; RESP 20; O2SAT 96
--- NOTE | 2022-10-02 07:17 | ECG_ITS ---
Test Reason : asthma Blood Pressure : / mmHG Vent. Rate : 085 BPM Atrial Rate : 085 BPM P-R Int : 148 ms QRS Dur : 082 ms QT Int : 390 ms P-R-T Axes : 033 024 057 degrees QTc Int : 464 ms Normal sinus rhythm Normal ECG When compared with ECG of 18-APR-2022 06:50, No significant change was found Referred By: Generic ED Physician Electronically Signed By:Frank Lion
[2022-10-02 07:42] LABS: Hemoglobin 12.6 g/dl (12.0-16.0); Mean Corpuscular HGB Conc 32.3 g/dl (31.0-35.0); Mean Corpuscular Volume 86.7 fL (80.0-98.0); Mean Platelet Volume 10.5 fL (9.4-12.3); Platelet Count 262 X10*3/uL (160-400); Red Cell Distribution Width 14.6 % (11.0-16.0); White Blood Count 7.6 X10*3/uL (4.8-10.8)
--- NOTE | 2022-10-02 07:47 | ED_ITS ---
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 She denies any lower extremity swelling but is having a cough that is worse at night and she is taking [id number] medication for the cough. She otherwise denies any further GI or symptoms. Related Data Home Medications Medication Instructions Recorded Confirmed cetirizine 10 mg tablet 10 mg PO DAILY 07/30/20 07/09/22 cholecalciferol (vitamin D3) 50 50 mcg PO BID 07/30/20 07/09/22 mcg (2,000 unit) capsule citalopram 40 mg tablet 40 mg PO DAILY 07/30/20 07/09/22 clonazepam 0.5 mg tablet 0.5 mg PO DAILY PRN anxiety 07/30/20 07/09/22 diphenhydramine HCl 25 mg tablet 25 mg PO BEDTIME PRN allergy 07/30/20 07/09/22 levothyroxine 100 mcg tablet 100 mcg PO DAILY 07/30/20 07/09/22 umeclidinium 62.5 mcg/actuation 62.5 inh inhalation BID 07/30/20 07/09/22 blister powder for inhalation (Incruse Ellipta) acetaminophen 650 mg 650 mg PO Q8H PRN pain 10/07/20 07/09/22 tablet,extended release budesonide 0.5 mg/2 mL suspension 0.5 mg inhalation .q 6 h 10/07/20 07/09/22 for nebulization fluticasone propionate 50 1 spray intranasal BID PRN Nasal 07/01/21 07/09/22 mcg/actuation nasal Congestion spray,suspension Previous Rx's Medication Instructions Recorded albuterol sulfate 90 mcg/actuation 2 puff inhalation Q4-6H PRN 08/14/20 aerosol inhaler shortness of breath or wheezing #18 grams docusate sodium 100 mg capsule 200 mg PO BEDTIME #60 caps 05/26/21 meclizine 25 mg tablet 25 mg PO TID PRN dizziness #20 tabs 10/16/21 loperamide 2 mg capsule 2 mg PO Q6H PRN loose stool #10 02/04/22 caps prednisone 5 mg tablet 5 mg PO BID COPD/asthma 30 days 04/15/22 #60 tabs ipratropium 0.5 mg-albuterol 3 mg 3 ml inhalation QID severe 05/05/22 (2.5 mg base)/3 mL nebulization copd/asthma 30 days #360 mL soln prednisone 5 mg tablet 5 mg PO BID severe COPD 30 days 07/07/22 #60 tabs hydrocortisone 2.5 % topical cream 1 appl ME BID-QID PRN hemorrhoids 07/09/22 with perineal applicator #30 grams (Procto-Med HC) methylcellulose (laxative) 500 mg 500 mg PO TID #90 tabs 07/09/22 tablet (Citrucel) pantoprazole 40 mg tablet,delayed 40 mg PO DAILY #30 tabs 07/09/22 release prednisone 50 mg tablet 50 mg PO DAILY 4 days #4 tabs 10/02/22 Allergies Allergy/AdvReac Type Severity Reaction Status Date / Time animal dander Allergy Mild SHORTNESS Verified 07/09/22 14:49 OF BREATH ciprofloxacin [From Cipro] Allergy Mild RASH Verified 07/09/22 14:49 vancomycin [Vancomycin] Allergy Mild SHORTNESS Verified 07/09/22 14:49 OF BREATH amoxicillin [AMOXICILLIN] Allergy Unknown RASH Verified 07/09/22 14:49 Penicillins [PENICILLINS] Allergy Unknown RASH Verified 07/09/22 14:49 Review of Systems Review of Systems: Pertinent positives and negatives as stated in HPI 10 point review of systems is otherwise negative. [facility] Past Medical History Medical History Acid reflux Acute anxiety Allergic rhinitis Anxiety Asthma Asthma dependent on inhaled steroids Asthma-COPD overlap syndrome COPD (chronic obstructive pulmonary disease) COPD exacerbation Depression Diverticulosis large intestine w/o perforation or abscess w/o bleeding Diverticulosis of colon Hypothyroid Irritable bowel Tubular adenoma Tubular adenoma Surgical History H/O esophagogastroduodenoscopy (~12/2018) History of colonoscopy with polypectomy (~12/2018) History of mandibular surgery Hx of cholecystectomy Hx of tubal ligation Family History Family History Maternal Aunt Pancreatic cancer Maternal Grandmother Diabetes Stroke Maternal Grandfather Diabetes Mother COPD (chronic obstructive pulmonary disease) Father Respiratory failure Social History Social History Household Members: Spouse Household Members Other:: Lives with an 11-year-old granddaughter Alcohol intake: unknown Patient Tobacco Use Status: Never used Tobacco Smoked in Last 30 Days: No Use of substances other than those prescribed or required for medical reasons: Unknown Advance Directives: Yes Advance Directives Information Provided: Yes Advance Directives on File: No Current occupational status: retired Physical Exam Vital Signs: Vital Signs: Last Vital Signs Temp 98.1 F 10/02/22 07:08 Pulse 95 10/02/22 08:10 Resp 18 10/02/22 08:10 BP 102/80 10/02/22 07:08 Pulse Ox 96 10/02/22 07:16 O2 Del Method 10/02/22 07:16 BMI result Body Mass Index 31.8 VITAL SIGNS: Reviewed. GENERAL: Well developed, well nourished, in no acute distress. HEAD: Normocephalic/atraumatic EYES: PERRLA, EOMI EARS: Ext canals without abnormality, TMs non-bulging and non-erythematous NOSE: Nares patent bilateral OROPHARYNX: no oral lesions noted, posterior pharynx clear and non-erythematous without noted tonsillar enlargement/erythema/exudates NECK: Supple, no adenopathy LUNGS: Normal breath sounds, no tachypnea or increased work of breathing and minimal expiratory wheeze. SpO2<96> CARDIOVASCULAR: Regular rate and rhythm without noted murmurs, no JVD or lower e xtremity edema. ABDOMEN: Soft, non-tender, non-distended with bowel sounds. MUSCULOSKELETAL: No tenderness, deformities, or effusions noted on gross inspection. EXTREMITIES: No cyanosis, clubbing or edema. SKIN: Inspection of the skin reveals no rashes NEUROLOGIC: Alert and oriented x 4. Strength and sensation to light touch were grossly intact x 4. Course Course Course Narrative: 67-year-old female with history and clinical presentation most likely to be viral in nature with viral syndrome that appears to be gradually resolving, patient is not noted to be hypoxic but will receive a small nebulized treatment and will start on a short course of steroids for additional symptom relief, rev iew of initial investigations are negative for any evidence of bacterial infection and clinically the patient appears well. Review of all investigations negative for acute findings to include negative viral testing, but suspect that patient may still be suffering from viral symptoms. In addition this is probably contributed to her mild asthma symptoms for which she received a nebulized treatment and will be started on a short course of steroids. She is otherwise discharged home in stable condition without tachypnea, tachycardia, and she is oxygenating well on room air. Medications Administered Discontinued Medications Generic Name Dose Route Start Last Admin Trade Name Freq PRN Reason Stop Dose Admin Albuterol/Ipratropium 3 ml 10/02/22 07:39 10/02/22 08:07 Albuterol/Iprat 2.5/0.5mg 3 Ml Ampul.Neb INHALE 10/02/22 07:40 3 ml ONCE ONE Administration Prednisone 40 mg 10/02/22 08:05 10/02/22 08:17 Prednisone 20 Mg Tablet PO 10/02/22 08:06 40 mg ONCE ONE Administration MDM - Asthma Lab Data Result diagrams: 10/02/22 07:31 10/02/22 07:31 Labs: Lab Results 10/02/22 10/02/22 10/02/22 Range/Units 07:31 07:31 07:31 WBC 7.6 (4.8-10.8) X10*3/uL RBC 4.50 (4.20-5.50) X10*6/uL Hgb 12.6 (12.0-16.0) g/dl Hct 39.0 (37.0-47.0) % MCV 86.7 (80.0-98.0) fL MCH 28.0 (27.0-33.0) pg MCHC 32.3 (31.0-35.0) g/dl RDW 14.6 (11.0-16.0) % Plt Count 262 (160-400) X10*3/uL MPV 10.5 (9.4-12.3) fL Absolute Nucleated RBC 0.000 (0.0-0.012) X10*3/uL Nucleated RBC % (auto) 0.0 (0.0-0.2) /100WBC Sodium 136 (135-145) mmol/L Potassium 3.7 (3.3-5.1) mmol/L Chloride 102 (96-108) mmol/L Carbon Dioxide 26 (22-29) mmol/L Anion Gap 12 (12-20) BUN 13 (9-16) mg/dL Creatinine 1.06 (0.5-1.4) mg/dL Estim Creat Clear Calc 55.9 Estimated GFR 52 Random Glucose 108 (60-115) mg/dL Calcium 9.1 (8.4-10.2) mg/dL Troponin I High Sens < 3.5 (<3.5-17.0) ng/L Influenza Type A (PCR) (Negative) Influenza Type B (PCR) (Negative) RSV RNA Qual (PCR) (Negative) SARS-CoV-2 RNA (RT-PCR) (Negative) 10/02/22 Range/Units 07:31 WBC (4.8-10.8) X10*3/uL RBC (4.20-5.50) X10*6/uL Hgb (12.0-16.0) g/dl Hct (37.0-47.0) % MCV (80.0-98.0) fL MCH (27.0-33.0) pg MCHC (31.0-35.0) g/dl RDW (11.0-16.0) % Plt Count (160-400) X10*3/uL MPV (9.4-12.3) fL Absolute Nucleated RBC (0.0-0.012) X10*3/uL Nucleated RBC % (auto) (0.0-0.2) /100WBC Sodium (135-145) mmol/L Potassium (3.3-5.1) mmol/L Chloride (96-108) mmol/L Carbon Dioxide (22-29) mmol/L Anion Gap (12-20) BUN (9-16) mg/dL Creatinine (0.5-1.4) mg/dL Estim Creat Clear Calc Estimated GFR Random Glucose (60-115) mg/dL Calcium (8.4-10.2) mg/dL Troponin I High Sens (<3.5-17.0) ng/L Influenza Type A (PCR) NEGATIVE (Negative) Influenza Type B (PCR) NEGATIVE (Negative) RSV RNA Qual (PCR) NEGATIVE (Negative) SARS-CoV-2 RNA (RT-PCR) NEGATIVE (Negative) ECG Data Attestation: I personally reviewed and interpreted this ECG as follows: Prior ECG tracings: available for review Interpretation: Normal sinus rhythm, HR-85, no STEMI, ME/QRS/QTC are within normal limits. Discharge Plan Discharge Clinical Impression: Viral syndrome, Asthma Patient Disposition: Home, Self-Care Instructions: Asthma (ED), Viral Syndrome (ED) Additional Instructions: 1. Recomiende un humidificador de vapor fr?o junto a la cama, contin?e con el control de la tos para reducir la inflamaci?n de las v?as respiratorias. 2. Complete el curso corto de esteroides con el que atwood comenzado. 3. Es posible que deba aumentar el uso de montiel inhalador perla las pr?ximas 24 horas para obtener un alivio adicional de los s?ntomas. 4. Realice un seguimiento con montiel proveedor de atenci?n primaria en los pr?ximos 1 a 2 d?as para abel reevaluaci?n adicional del manejo ambulatorio. Regrese a la johan de emergencias si los s?ntomas empeoran. Prescriptions: New prednisone 50 mg tablet 50 mg PO DAILY 4 Days Qty: 4 0RF No Action docusate sodium 100 mg capsule 200 mg PO BEDTIME Qty: 60 5RF ipratropium-albuterol 0.5 mg-3 mg(2.5 mg base)/3 mL solution for nebulization 3 ml inhalation QID 30 Days Qty: 360 3RF prednisone 5 mg tablet 5 mg PO BID 30 Days Qty: 60 3RF albuterol sulfate 90 mcg/actuation HFA aerosol inhaler 2 puff inhalation Q4-6H PRN (Reason: shortness of breath or wheezing) Qty: 18 0RF loperamide 2 mg capsule 2 mg PO Q6H PRN (Reason: loose stool) Qty: 10 0RF meclizine 25 mg tablet 25 mg PO TID PRN (Reason: dizziness) Qty: 20 0RF diphenhydramine HCl 25 mg tablet 25 mg PO BEDTIME PRN (Reason: allergy) Incruse Ellipta 62.5 mcg/actuation blister with device 62.5 inh inhalation BID cholecalciferol (vitamin D3) 50 mcg (2,000 unit) capsule 50 mcg PO BID levothyroxine 100 mcg tablet 100 mcg PO DAILY cetirizine 10 mg tablet 10 mg PO DAILY citalopram 40 mg tablet 40 mg PO DAILY clonazepam 0.5 mg tablet 0.5 mg PO DAILY PRN (Reason: anxiety) fluticasone propionate 50 mcg/actuation spray,suspension 1 spray intranasal BID PRN (Reason: Nasal Congestion) budesonide 0.5 mg/2 mL suspension for nebulization 0.5 mg inhalation .q 6 h acetaminophen 650 mg tablet extended release 650 mg PO Q8H PRN (Reason: pain) prednisone 5 mg tablet 5 mg PO BID 30 Days Qty: 60 3RF hydrocortisone [Procto-Med HC] 2.5 % cream with perineal applicator 1 appl ME BID-QID PRN (Reason: hemorrhoids) Qty: 30 3RF pantoprazole 40 mg tablet,delayed release (DR/EC) 40 mg PO DAILY Qty: 30 2RF Citrucel 500 mg tablet 500 mg PO TID Qty: 90 5RF Referrals: Sosa Clement MD [Primary Care Provider] - Print Language: Icelandic
[2022-10-02 08:02] LABS: Anion Gap 12 (12-20); Blood Urea Nitrogen 13 mg/dL (9-16); Calcium 9.1 mg/dL (8.4-10.2); Carbon Dioxide 26 mmol/L (22-29); Chloride 102 mmol/L (96-108); Creatinine Clr Calc Pharmacy 55.9; Estimated Glomerular Filt Rate 52; Glucose Random 108 mg/dL (60-115); Potassium 3.7 mmol/L (3.3-5.1); Sodium 136 mmol/L (135-145)
[2022-10-02] MEDS: Albuterol/Iprat 2.5/0.5MG 3 ML AMPUL.NEB INHALE (08:07)
[2022-10-02 08:10] VITALS: PULSE 95; RESP 18; O2SAT 97
[2022-10-02] MEDS: predniSONE 20 MG TABLET 40 MG PO (08:17)
[2022-10-02 08:18] LABS: Troponin-I High Sensitivity < 3.5 ng/L (<3.5-17.0)
--- NOTE | 2022-10-02 08:44 | PC.NURSE ---
pt asking about giving ua spec r/t urinary burning pt has been having. ambulating w smooth steady gait to bathroom for ua spec.
[2022-10-02 08:48] LABS: Influenza A PCR NEGATIVE (Negative); Influenza B PCR NEGATIVE (Negative); Resp Syncy Virus RNA Qual PCR NEGATIVE (Negative); SARS COV2 PCR INHOUSE NEGATIVE (Negative)
[2022-10-02 09:00] LABS: Appearance Urine Clear; Color Urine Dark Yellow; Glucose Urine UA Negative (Negative); Leukocyte Esterase Urine Trace (Negative); Nitrite Urine Negative (Negative); Specific Gravity - Urine >= 1.030 (1.005-1.025); UMIC TRIGGER UACC YES; Urine Blood Negative (Negative); Urine Ketones Trace mg/dL (Negative); Urine Protein 30 (1+) mg/dL (Neg-Trace)
[2022-10-02 09:15] LABS: Bacteria Urine None Seen (None Seen); Calcium Oxalate Crystals Urine Present; RBC Urine 0-2 /HPF (0-2); Squamous Epithelial Cell Urine 0-2 /HPF (0-2); WBC Urine 0-5 /HPF (0-5)
== END 2022-10-02 09:10 | disposition home or self-care (01) ==
PROVIDERS: Emergency Provider Student in an Organized Health Care Education/Training Program; PCP Pediatrics
DX: B34.9 Viral infection, unspecified (principal); J45.909 Unspecified asthma, uncomplicated; R06.02 Shortness of breath; M79.10 Myalgia, unspecified site; Z20.822 Contact with and (suspected) exposure to COVID-19; Z79.899 Other long term (current) drug therapy
CPT/HCPCS: 0241U; 71045; 80048; 81001; 81003; 84484; 85027; 93005; 94640; 99283; 99285

== ENCOUNTER 2022-12-15 07:50 | Outpatient (REF) | payer MEDICARE, MEDICAID, SELFPAY ==
--- NOTE | ~2022-12-15 | MM_ITS ---
EXAMINATION: MM SCREENING DIGITAL BREAST TOMOSYNTHESIS, BILATERAL CLINICAL INFORMATION: Due for yearly. Prior history left breast DCIS, status post lumpectomy 2006. COMPARISON: Mammography: 08/28/2021, and 07/02/2020, 10/26/2018 TECHNIQUE: Digital breast tomosynthesis is performed in both the craniocaudal and mediolateral oblique views along with computer-aided detection (CAD). Synthesized 2D images are generated from the tomosynthesis. FINDINGS: There are scattered areas of fibroglandular density (ACR BI-RADS breast composition Category b). Mammography is similar to prior studies. There are post therapy changes on the left with reduced breast size, axillary clip, and stable scarring central 12:00 position. Neither breast shows interval mass or developing density or interval architectural abnormality. No abnormal calcifications. No significant changes. MM/MM tomosynthesis screening BI IMPRESSION: -No mammographic evidence of malignancy. -Post therapy changes left breast. ASSESSMENT: BI-RADS 2: Benign RECOMMENDATION: Routine annual mammography screening. This patient's information was entered into a reminder system with a target due date for their next mammogram.
== END 2022-12-15 07:51 | disposition home or self-care (01) ==
LOC: HO.MAMMO 07:50
PROVIDERS: PCP Pediatrics; Visit Provider Internal Medicine
DX: Z12.31 Encounter for screening mammogram for malignant neoplasm of breast (principal)
CPT/HCPCS: 77063; 77067

== ENCOUNTER 2023-01-25 11:37 | Outpatient (REF) | payer OTHER, SELFPAY ==
[2023-01-25 14:59] LABS: Alkaline Phosphatase 202 U/L (39-117); Gamma Glutamyl Transpeptidase 76 U/L (7-33)
[2023-01-26 12:41] LABS: Campylobacter Not Detected (Not Detect.); Sapovirus Not Detected (Not Detect.)
[2023-01-26 12:42] LABS: Adenovirus F 40/41 Not Detected (Not Detect.); Astrovirus Not Detected (Not Detect.); Cryptosporidium Not Detected (Not Detect.); Cyclospora cayetanensis Not Detected (Not Detect.); E. coli EAEC Not Detected (Not Detect.); E. coli EPEC Not Detected (Not Detect.); E. coli ETEC Not Detected (Not Detect.); E. coli STEC Not Detected (Not Detect.); Entamoeba histolytica Not Detected (Not Detect.); Giardia lamblia Not Detected (Not Detect.); Norovirus GI/GII Not Detected (Not Detect.); Plesiomonas shigelloides Not Detected (Not Detect.); Rotavirus A Not Detected (Not Detect.); Salmonella Not Detected (Not Detect.); Shigella sp./EIEC Not Detected (Not Detect.); Vibrio Not Detected (Not Detect.); Vibrio Cholerae Not Detected (Not Detect.); Yersinia enterocolitica Not Detected (Not Detect.)
== END 2023-01-25 11:38 | disposition home or self-care (01) ==
LOC: HO.LAB 11:37
PROVIDERS: PCP Pediatrics; Visit Provider Physician Assistant
DX: K52.9 Noninfective gastroenteritis and colitis, unspecified (principal); K58.9 Irritable bowel syndrome, unspecified; R10.9 Unspecified abdominal pain; K21.9 Gastro-esophageal reflux disease without esophagitis; Z79.899 Other long term (current) drug therapy; F41.9 Anxiety disorder, unspecified; K57.30 Diverticulosis of large intestine without perforation or abscess without bleeding; D36.9 Benign neoplasm, unspecified site; R74.8 Abnormal levels of other serum enzymes; Z20.2 Contact with and (suspected) exposure to infections with a predominantly sexual mode of transmission; Z79.52 Long term (current) use of systemic steroids
CPT/HCPCS: 36415; 82977; 84075; 87507; 99212

== ENCOUNTER 2023-02-02 20:09 | Emergency (ER) | payer OTHER, SELFPAY ==
--- NOTE | ~2023-02-02 | CT_ITS ---
EXAMINATION: CT ANGIOGRAM OF THE CHEST WITH AND WITHOUT CONTRAST (CT PULMONARY ANGIOGRAM FOR PE) CLINICAL INFORMATION: Reason for Exam pain, hypoxia COMPARISON: Chest radiograph earlier today TECHNIQUE: Prior to contrast administration, noncontrast localization images were obtained. Subsequently, multidetector volumetric imaging was performed from the thoracic inlet to below the diaphragms following the administration of 65 mL Omnipaque 350 intravenous contrast. No contrast reaction reported Sagittal, coronal, and MIP oblique sagittal reformatted images were obtained on the CT workstation, uploaded to PACS, and reviewed. This CT examination was performed using dose optimization techniques as appropriate, variously including the following: *Automated exposure control *Adjustment of mA and/or kV according to patient size (this includes techniques or standardized protocols for targeted exams where dose is matched to indication/reason for exam; i.e. extremities or head) *Use of iterative reconstruction technique Total exam dose-length product 299 mGy-cm FINDINGS: QUALITY OF STUDY/CONTRAST BOLUS: The bolus is less than optimal is marked respiratory artifact obscuring detail. PULMONARY ARTERIES: No central or large segmental pulmonary emboli. THORACIC AORTA: No aneurysm. LUNG: No focal consolidation, nodules or masses. PLEURA: No pleural effusion or pneumothorax. MEDIASTINUM: Normal heart size. No pericardial effusion. No hilar or mediastinal lymphadenopathy. No evidence of septal bowing or right heart strain. CORONARY ARTERY CALCIFICATION: None visualized on this study. CHEST WALL/AXILLA: No axillary or internal mammary lymphadenopathy. OSSEOUS STRUCTURES: No acute or suspicious osseous abnormality. UPPER ABDOMEN: A moderate-sized hiatal hernia is present. Status post cholecystectomy. No reflux of contrast into the hepatic veins to suggest elevated right heart pressures. CT/CT angio chest PE protocol IMPRESSION: 1. Limited study but no large pulmonary emboli are seen. 2. VTE: Negative, but limited.
--- NOTE | ~2023-02-02 | XR_ITS ---
EXAMINATION: XR CHEST CLINICAL INFORMATION: Shortness of breath COMPARISON: 10/02/2022 TECHNIQUE: Frontal view of the chest was obtained. FINDINGS: No significant abnormality is noted involving the heart, lungs, mediastinum, bony thorax or soft tissues. XR/XR chest 1V IMPRESSION: Unremarkable examination.
[2023-02-02 20:11] VITALS: BP 189/95; PULSE 129; RESP 30; TEMP 36.1; O2SAT 93; BMI 31.6
[2023-02-02 20:17] VITALS: BP 180/104; PULSE 91; RESP 30; O2SAT 91
--- NOTE | 2023-02-02 20:24 | ECG_ITS ---
Test Reason : asthma Blood Pressure : / mmHG Vent. Rate : 122 BPM Atrial Rate : 122 BPM P-R Int : 170 ms QRS Dur : 072 ms QT Int : 298 ms P-R-T Axes : 079 049 080 degrees QTc Int : 424 ms Sinus tachycardia Otherwise normal ECG When compared with ECG of 02-OCT-2022 07:18, No significant change was found Referred By: Jose De Jesus Cain Electronically Signed By:Frank Lion
[2023-02-02 20:33] LABS: MANUAL DIFF FLAG NO
[2023-02-02] MEDS: methylPREDNISolone Sod Succ 125 MG/2 ML VIAL IVPUSH (20:33)
--- NOTE | 2023-02-02 20:35 | PC.NURSE ---
patient came into room 4 with notable dyspnea, pt tripoding on side of bed while attempting to change patient into hospital attire, pt able to only speak short sentences, RT at bedside who bag updraft, iv inserted, labs drawn, nasal swab obtained, shelter monitor applied- sinus tach noted, ekg performed.
[2023-02-02] MEDS: Magnesium Sulfate/D5W 1 GM/100 ML PIGGYBACK IV (20:37)
[2023-02-02 20:39] LABS: Basophils Absolute Auto 0.1 X10*3/uL (0.0-0.2); Basophils Percent Auto 0.5 % (0-2); Eosinophils Absolute Auto 0.1 X10*3/uL (0.0-0.4); Eosinophils Percent Auto 0.4 % (0-4); Hematocrit 43.2 % (37.0-47.0); Hemoglobin 13.6 g/dl (12.0-16.0); Imm Gran Abs Auto 0.05 X10*3/uL (0.00-0.03); Imm Gran Pct Auto 0.3 % (0.0-0.4); Lymphocytes Absolute Auto 1.8 X10*3/uL (1.2-4.9); Lymphocytes Percent Auto 11.2 % (20-40); Mean Corpuscular HGB Conc 31.5 g/dl (31.0-35.0); Mean Corpuscular Hemoglobin 27.4 pg (27.0-33.0); Mean Corpuscular Volume 87.1 fL (80.0-98.0); Mean Platelet Volume 11.4 fL (9.4-12.3); Monocytes Absolute Auto 0.9 X10*3/uL (0.1-1.2); Monocytes Percent Auto 5.5 % (2-11); Neutrophils Percent Auto 82.1 % (45-73); Platelet Count 284 X10*3/uL (160-400); Red Blood Count 4.96 X10*6/uL (4.20-5.50); White Blood Count 15.9 X10*3/uL (4.8-10.8)
[2023-02-02 20:45] VITALS: PULSE 124
--- NOTE | 2023-02-02 20:51 | PC.NURSE ---
patient currently a&ox3, pt previously medicated per order, pt now speaking in full sentences, pt continues to be sinus tach on media monitor, pt stated she feels much better and appears to have less work of breathing, pt lungs are diminished throughout- very minimal air movement heard throughout- no wheezing currently heard. cxr performed, family at bedside, call vera within reach, will continue to monitor
[2023-02-02 20:57] VITALS: BP 118/69; PULSE 131; RESP 24; O2SAT 99
[2023-02-02 20:58] LABS: Alanine Aminotransferase 17 U/L (0-31); Albumin Level 4.6 g/dL (3.5-5.0); Alkaline Phosphatase 243 U/L (39-117); Anion Gap 13 (12-20); Aspartate Amino Transferase 19 U/L (5-31); Bilirubin Total 0.4 mg/dL (0.0-1.0); Blood Urea Nitrogen 23 mg/dL (9-16); Calcium 9.6 mg/dL (8.4-10.2); Carbon Dioxide 26 mmol/L (22-29); Chloride 106 mmol/L (96-108); Creatinine Clr Calc Pharmacy 45.4; Estimated Glomerular Filt Rate 39; Glucose Random 72 mg/dL (60-115); Magnesium 2.3 mg/dL (1.6-2.6); Potassium 4.7 mmol/L (3.3-5.1); Sodium 140 mmol/L (135-145); Total Protein 7.7 g/dL (6.5-8.0)
--- NOTE | 2023-02-02 21:07 | ED_ITS ---
HPI - Asthma General Chief Complaint: Asthma Stated Complaint: Asthma Time Seen by Provider: 02/02/23 20:17 Source: patient, family, RN notes reviewed and old records reviewed Mode of arrival: ambulatory Limitations: no limitations History of Present Illness HPI Narrative: 67-year-old female past medical history significant for asthma, COPD, chronic diarrhea, anxiety, depression, irritable bowel syndrome, GERD presents for evaluation of shortness of breath. Patient reports that she has had increasing shortness of breath the last 2 or 3 days. She reports that was initially mild and she was able to control her symptoms with her nebulizers and inhalers at home. She states that after she took a nap today she woke up with severe shortness of breath and chest pain She reports that she had a feeling of ?someone sitting on my chest. ? This is a typical of her usual asthma exacerbations Denies any fevers, chills, recent travel, history of blood clots Patient reports that she used to be on chronic steroids but is no longer taking prednisone daily Related Data Home Medications Medication Instructions Recorded Confirmed cetirizine 10 mg tablet 10 mg PO DAILY 07/30/20 11/23/22 cholecalciferol (vitamin D3) 50 50 mcg PO BID 07/30/20 11/23/22 mcg (2,000 unit) capsule citalopram 40 mg tablet 40 mg PO DAILY 07/30/20 11/23/22 clonazepam 0.5 mg tablet 0.5 mg PO DAILY PRN anxiety 07/30/20 11/23/22 diphenhydramine HCl 25 mg tablet 25 mg PO BEDTIME PRN allergy 07/30/20 11/23/22 (Benadryl Allergy) levothyroxine 100 mcg tablet 100 mcg PO DAILY 07/30/20 11/23/22 umeclidinium 62.5 mcg/actuation 62.5 inh inhalation BID 07/30/20 11/23/22 blister powder for inhalation (Incruse Ellipta) acetaminophen 650 mg 650 mg PO Q8H PRN pain 10/07/20 11/23/22 tablet,extended release budesonide 0.5 mg/2 mL suspension 0.5 mg inhalation .q 6 h 10/07/20 11/23/22 for nebulization fluticasone propionate 50 1 spray intranasal BID PRN Nasal 07/01/21 11/23/22 mcg/actuation nasal Congestion spray,suspension docusate sodium 100 mg capsule 200 mg PO BEDTIME 11/23/22 11/23/22 (Colace) Previous Rx's Medication Instructions Recorded albuterol sulfate 90 mcg/actuation 2 puff inhalation Q4-6H PRN 08/14/20 aerosol inhaler shortness of breath or wheezing #18 grams meclizine 25 mg tablet 25 mg PO TID PRN dizziness #20 tabs 10/16/21 prednisone 5 mg tablet 5 mg PO BID COPD/asthma 30 days 04/15/22 #60 tabs ipratropium 0.5 mg-albuterol 3 mg 3 ml inhalation QID severe 05/05/22 (2.5 mg base)/3 mL nebulization copd/asthma 30 days #360 mL soln prednisone 5 mg tablet 5 mg PO BID severe COPD 30 days 07/07/22 #60 tabs hydrocortisone 2.5 % topical cream 1 appl [place] BID-QID PRN hemorrhoids 07/09/22 with perineal applicator #30 grams (Procto-Med HC) methylcellulose (laxative) 500 mg 500 mg PO TID #90 tabs 07/09/22 tablet (Citrucel) prednisone 50 mg tablet 50 mg PO DAILY 4 days #4 tabs 10/02/22 pantoprazole 40 mg tablet,delayed 40 mg PO DAILY #30 tabs 12/02/22 release loperamide 2 mg capsule (Imodium 2 mg PO Q6H PRN loose stool #30 01/25/23 A-D) caps Allergies Allergy/AdvReac Type Severity Reaction Status Date / Time animal dander Allergy Mild SHORTNESS Verified 01/25/23 11:42 OF BREATH ciprofloxacin [From Cipro] Allergy Mild RASH Verified 01/25/23 11:42 vancomycin [Vancomycin] Allergy Mild SHORTNESS Verified 01/25/23 11:42 OF BREATH amoxicillin [AMOXICILLIN] Allergy Unknown RASH Verified 01/25/23 11:42 Penicillins [PENICILLINS] Allergy Unknown RASH Verified 01/25/23 11:42 Review of Systems Constitutional: Constitutional: Reports as per HPI, Denies chills, Denies fat igue, Denies fever(s) and Denies headache(s) ENT: Denies headache(s) Cardiovascular: Cardiovascular: Reports chest pain and Reports dyspnea Respiratory: Respiratory: Denies cough, Reports dyspnea and Reports wheezing Gastrointestinal: Gastrointestinal: Denies abdominal pain, Denies constipation and Denies vomiting Genitourinary: Genitourinary: Denies dysuria Neurologic: Denies headache(s) and Denies focal weakness Endocrine: Endocrine: Denies fatigue Allergic/Immunologic: Allergic/Immunologic: Reports wheezing [facility] Past Medical History Medical History Acid reflux Acute anxiety Allergic rhinitis Anxiety Asthma Asthma dependent on inhaled steroids Asthma-COPD overlap syndrome COPD (chronic obstructive pulmonary disease) COPD exacerbation Depression Diverticulosis large intestine w/o perforation or abscess w/o bleeding Diverticulosis of colon Hypothyroid Irritable bowel Tubular adenoma Tubular adenoma Surgical History H/O esophagogastroduodenoscopy (~12/2018) History of colonoscopy with polypectomy (~12/2018) History of mandibular surgery Hx of cholecystectomy Hx of tubal ligation Family History Family History Maternal Aunt Pancreatic cancer Maternal Grandmother Diabetes Stroke Maternal Grandfather Diabetes Mother COPD (chronic obstructive pulmonary disease) Father Respiratory failure Social History Social History Household Members: Spouse Household Members Other:: Lives with an 11-year-old granddaughter Housing: House Are you a primary out of school hours care worker to a significant other at home: No Do you presently have visiting nurse or other home services: No Alcohol intake: never Patient Tobacco Use Status: Never used Tobacco Smoked in Last 30 Days: No Use of substances other than those prescribed or required for medical reasons: No Advance Directives: No Advance Directives Information Provided: No service: No Current occupational status: retired Physical Exam Vital Signs: Vital Signs: Last Vital Signs Temp 97.3 F 02/03/23 00:20 Pulse 109 H 02/03/23 00:20 Resp 18 02/03/23 00:20 BP 133/66 02/03/23 00:20 Pulse Ox 96 02/03/23 00:20 O2 Del Method Room Air 02/02/23 23:03 BMI result Body Mass Index 31.6 Const: General: healthy appearing, comfortable, no acute distress, alert and awake Nutritional Appearance: well nourished Orientation/consciousness: patient oriented x3 HEENT: Head: Yes normocephalic and Yes atraumatic Throat: Yes posterior oropharynx normal Eyes: Eyelids: Yes eyelids normal Conjunctivae: conjunctivae normal Sclerae: sclerae normal Corneas: corneas normal Pupils: Equal, round and reactive pupils present EOM: EOMs intact bilaterally Neck: Neck: Yes full ROM Resp: Other: Patient arrives with increased respiratory effort, accessory muscle use, diminished breath sounds bilaterally but also with expiratory wheeze bilaterally. No crackles noted Effort & Inspection: abnormal respiratory effort and not able to speak in complete sentences Cardio: Rate: abnormal rate and tachycardic Rhythm: regular rhythm GI: Inspection: No distended Palpation (GI): Soft to palpation, not firm, nontender, no guarding and not rigid Auscultation: normoactive bowel sounds Skin: General skin exam: no rashes or lesions noted and elasticity normal Neuro: General: patient oriented x3 Cranial nerves: Yes CN's II-XII intact bilaterally, Yes Equal, round and reactive pupils present and Yes Bilaterally intact EOM present Cognition (Neuro): normal cognition Course Reevaluation(s) Reevaluation #1: PATIENT WORKUP LARGE UNREMARKABLE, CTA NEGATIVE FOR PE, ALSO NEGATIVE FOR PNEUMONIA. WE DO AMBULATION TRIAL THE PATIENT'S OXYGEN SATURATION MAINTAINED AT 98%. SHE REPORTED FEELING SOMEWHAT WOOZY WITH EXERTION. THERE FOR ANOTHER BREATHING TREATMENT PRIOR TO DISCHARGE AND SHE DECLINED. SHE HAS A NEBULIZER AT HOME. WILL DISCHARGE THE PATIENT PREDNISONE Time: 00:47 Medications Administered Discontinued Medications Generic Name Dose Route Start Last Admin Trade Name Vernonq PRN Reason Stop Dose Admin Magnesium Sulfate/Dextrose 1 gm in 100 mls @ 100 mls/hr 02/02/23 20:24 02/02/23 21:37 Magnesium Sulfate/D5w IV 02/02/23 21:23 Infused ONCE ONE Infusion Sodium Chloride 1,000 mls @ 999 mls/hr 02/02/23 21:15 02/02/23 22:57 Ns IV 02/02/23 22:15 Infused .Q1H1M JOSÉ MIGUEL Infusion Iohexol 100 ml 02/02/23 21:54 02/02/23 21:55 Iohexol 350 Mg/Ml 100 Ml Infus..Btl IV 02/02/23 21:55 65 ml ONCE ONE Administration Methylprednisolone Sodium Succinate 125 mg 02/02/23 20:24 02/02/23 20:33 Methylprednisolone Sod Succ 125 Mg/2 Ml Vial IVPUSH 02/02/23 20:25 125 mg ONCE ONE Administration Medical Decision Making Medical Decision Making [facility] Narrative: Patient arrives hypoxic to 90% on room air, she is tachycardic to 130 with diminished breath sounds and wheezing. She is given albuterol 10 mg with some improvement in her symptoms. Will treat with Solu-Medrol, magnesium AV, chest x-ray, labs are pending. EKG shows sinus tachycardia without ischemic changes. Given the patient has significant chest pressure and chest pain which is atypical of her usual asthma exacerbations will get a CT of the chest to rule out PE Differential Diagnosis Acute asthma exacerbation Bronchitis Pneumonia PE ACS less likely Lab Data 02/02/23 20:28 02/02/23 20:28 Labs: Lab Results 02/02/23 02/02/23 02/02/23 Range/Units 20:28 20:28 20:28 WBC 15.9 H (4.8-10.8) X10*3/uL RBC 4.96 (4.20-5.50) X10*6/uL Hgb 13.6 (12.0-16.0) g/dl Hct 43.2 (37.0-47.0) % MCV 87.1 (80.0-98.0) fL MCH 27.4 (27.0-33.0) pg MCHC 31.5 (31.0-35.0) g/dl RDW 15.0 (11.0-16.0) % Plt Count 284 (160-400) X10*3/uL MPV 11.4 (9.4-12.3) fL Immature Gran % (Auto) 0.3 (0.0-0.4) % Neut % (Auto) 82.1 H (45-73) % Lymph % (Auto) 11.2 L (20-40) % [place] % (Auto) 5.5 (2-11) % Eos % (Auto) 0.4 (0-4) % Baso % (Auto) 0.5 (0-2) % Lymph # (Auto) 1.8 (1.2-4.9) X10*3/uL [place] # (Auto) 0.9 (0.1-1.2) X10*3/uL Eos # (Auto) 0.1 (0.0-0.4) X10*3/uL Baso # (Auto) 0.1 (0.0-0.2) X10*3/uL Abs Immat Gran (auto) 0.05 H (0.00-0.03) X10*3/uL Absolute Neuts (auto) 13.0 H (2.0-8.3) x10*3/uL Absolute Nucleated RBC 0.000 (0.0-0.012) X10*3/uL Nucleated RBC % (auto) 0.0 (0.0-0.2) /100WBC Sodium 140 (135-145) mmol/L Potassium 4.7 (3.3-5.1) mmol/L Chloride 106 (96-108) mmol/L Carbon Dioxide 26 (22-29) mmol/L Anion Gap 13 (12-20) BUN 23 H (9-16) mg/dL Creatinine 1.35 (0.5-1.4) mg/dL Estim Creat Clear Calc 45.4 Estimated GFR 39 Random Glucose 72 (60-115) mg/dL Calcium 9.6 D (8.4-10.2) mg/dL Magnesium 2.3 (1.6-2.6) mg/dL Total Bilirubin 0.4 (0.0-1.0) mg/dL AST 19 (5-31) U/L ALT 17 (0-31) U/L Alkaline Phosphatase 243 H (39-117) U/L Troponin I High Sens < 2.7 (<3.5-17.0) ng/L Total Protein 7.7 (6.5-8.0) g/dL Albumin 4.6 (3.5-5.0) g/dL Influenza Type A (PCR) (Negative) Influenza Type B (PCR) (Negative) RSV RNA Qual (PCR) (Negative) SARS-CoV-2 RNA (RT-PCR) (Negative) 02/02/23 Range/Units 20:29 WBC (4.8-10.8) X10*3/uL RBC (4.20-5.50) X10*6/uL Hgb (12.0-16.0) g/dl Hct (37.0-47.0) % MCV (80.0-98.0) fL MCH (27.0-33.0) pg MCHC (31.0-35.0) g/dl RDW (11.0-16.0) % Plt Count (160-400) X10*3/uL MPV (9.4-12.3) fL Immature Gran % (Auto) (0.0-0.4) % Neut % (Auto) (45-73) % Lymph % (Auto) (20-40) % [place] % (Auto) (2-11) % Eos % (Auto) (0-4) % Baso % (Auto) (0-2) % Lymph # (Auto) (1.2-4.9) X10*3/uL [place] # (Auto) (0.1-1.2) X10*3/uL Eos # (Auto) (0.0-0.4) X10*3/uL Baso # (Auto) (0.0-0.2) X10*3/uL Abs Immat Gran (auto) (0.00-0.03) X10*3/uL Absolute Neuts (auto) (2.0-8.3) x10*3/uL Absolute Nucleated RBC (0.0-0.012) X10*3/uL Nucleated RBC % (auto) (0.0-0.2) /100WBC Sodium (135-145) mmol/L Potassium (3.3-5.1) mmol/L Chloride (96-108) mmol/L Carbon Dioxide (22-29) mmol/L Anion Gap (12-20) BUN (9-16) mg/dL Creatinine (0.5-1.4) mg/dL Estim Creat Clear Calc Estimated GFR Random Glucose (60-115) mg/dL Calcium (8.4-10.2) mg/dL Magnesium (1.6-2.6) mg/dL Total Bilirubin (0.0-1.0) mg/dL AST (5-31) U/L ALT (0-31) U/L Alkaline Phosphatase (39-117) U/L Troponin I High Sens (<3.5-17.0) ng/L Total Protein (6.5-8.0) g/dL Albumin (3.5-5.0) g/dL Influenza Type A (PCR) NEGATIVE (Negative) Influenza Type B (PCR) NEGATIVE (Negative) RSV RNA Qual (PCR) NEGATIVE (Negative) SARS-CoV-2 RNA (RT-PCR) NEGATIVE (Negative) Independent Interpretation I performed an independent interpretation of an: EKG (Sinus tachycardia rate 120 beats per minute. No ST segment elevation or depressions.) Discharge Plan Discharge Clinical Impression: Acute asthma exacerbation Patient Disposition: Home, Self-Care Instructions: Asthma (ED) Additional Instructions: Take prednisone 40 mg daily for the next 5 days. Take all the medications as prescribed. Continue nebulizers Return for new or worsening symptoms Prescriptions: No Action ipratropium-albuterol 0.5 mg-3 mg(2.5 mg base)/3 mL solution for nebulization 3 ml inhalation QID 30 Days Qty: 360 3RF prednisone 5 mg tablet 5 mg PO BID 30 Days Qty: 60 3RF albuterol sulfate 90 mcg/actuation HFA aerosol inhaler 2 puff inhalation Q4-6H PRN (Reason: shortness of breath or wheezing) Qty: 18 0RF docusate sodium [Colace] 100 mg capsule 200 mg PO BEDTIME meclizine 25 mg tablet 25 mg PO TID PRN (Reason: dizziness) Qty: 20 0RF prednisone 50 mg tablet 50 mg PO DAILY 4 Days Qty: 4 0RF diphenhydramine HCl [Benadryl Allergy] 25 mg tablet 25 mg PO BEDTIME PRN (Reason: allergy) Incruse Ellipta 62.5 mcg/actuation blister with device 62.5 inh inhalation BID cholecalciferol (vitamin D3) 50 mcg (2,000 unit) capsule 50 mcg PO BID levothyroxine 100 mcg tablet 100 mcg PO DAILY cetirizine 10 mg tablet 10 mg PO DAILY citalopram 40 mg tablet 40 mg PO DAILY clonazepam 0.5 mg tablet 0.5 mg PO DAILY PRN (Reason: anxiety) fluticasone propionate 50 mcg/actuation spray,suspension 1 spray intranasal BID PRN (Reason: Nasal Congestion) budesonide 0.5 mg/2 mL suspension for nebulization 0.5 mg inhalation .q 6 h acetaminophen 650 mg tablet extended release 650 mg PO Q8H PRN (Reason: pain) prednisone 5 mg tablet 5 mg PO BID 30 Days Qty: 60 3RF hydrocortisone [Procto-Med HC] 2.5 % cream with perineal applicator 1 appl [place] BID-QID PRN (Reason: hemorrhoids) Qty: 30 3RF Citrucel 500 mg tablet 500 mg PO TID Qty: 90 5RF pantoprazole 40 mg tablet,delayed release (DR/EC) 40 mg PO DAILY Qty: 30 2RF loperamide [Imodium A-D] 2 mg capsule 2 mg PO Q6H PRN (Reason: loose stool) Qty: 30 0RF Rx Instructions: Take 2 cap after 1st loose stool- One caplet after each subsequent loose stools No more than 4 caps in a 24 hour.
[2023-02-02 21:08] LABS: Troponin-I High Sensitivity < 2.7 ng/L (<3.5-17.0)
[2023-02-02 21:20] LABS: Influenza A PCR NEGATIVE (Negative); Influenza B PCR NEGATIVE (Negative); Resp Syncy Virus RNA Qual PCR NEGATIVE (Negative); SARS COV2 PCR INHOUSE NEGATIVE (Negative)
[2023-02-02] MEDS: 0.9 % Sodium Chloride 1,000 ML 999 ML IV (21:28)
[2023-02-02 21:29] VITALS: BP 137/60; PULSE 124; RESP 16; O2SAT 97
[2023-02-02] MEDS: iohexoL 350 MG/ML 100 ML INFUS..BTL IV (21:55)
[2023-02-02 23:03] VITALS: BP 124/61; PULSE 111; RESP 16; TEMP 36.7; O2SAT 95
--- NOTE | 2023-02-02 23:45 | PC.NURSE ---
Took over care from AGUSTO Nelson, pt reports feeling better, no sign of respiratory distress. Will continue to monitor.
[2023-02-03 00:20] VITALS: BP 133/66; PULSE 109; RESP 18; TEMP 36.3; O2SAT 96
--- NOTE | 2023-02-03 00:48 | PC.NURSE ---
per provider, pt walked tested. O2 is 98. Oxygen maintain above 90
--- NOTE | 2023-02-03 00:57 | PC.NURSE ---
Reviewed medications and discharge instructions with pt. pt verbalized understanding. Pt able to speak in full sentences, no sign of respiratory distress at discharge.
== END 2023-02-03 01:00 | disposition home or self-care (01) ==
PROVIDERS: Physician Assistant; Emergency Provider Student in an Organized Health Care Education/Training Program; PCP Pediatrics
DX: J45.901 Unspecified asthma with (acute) exacerbation (principal); Z20.822 Contact with and (suspected) exposure to COVID-19; Z20.828 Contact with and (suspected) exposure to other viral communicable diseases; R06.02 Shortness of breath; Z79.899 Other long term (current) drug therapy
CPT/HCPCS: 0241U; 71045; 71275; 80053; 83735; 84484; 85025; 93005; 96361; 96365; 96375; 99284; 99285; J2930; J3475; Q9967

== ENCOUNTER 2023-02-10 08:55 | Outpatient (REF) | payer OTHER, SELFPAY ==
--- NOTE | ~2023-02-10 | US_ITS ---
EXAMINATION: US ABDOMEN COMPLETE CLINICAL INFORMATION: Abnormal levels of other serum enzymes. COMPARISON: CT abdomen and pelvis without contrast dated 01/20/2021. Ultrasound abdomen complete dated 02/02/2017. TECHNIQUE: Real-time imaging of the abdominal viscera. FINDINGS: PANCREAS: Normal. ABDOMINAL AORTA: The proximal, mid, and distal segments are normal in caliber. INFERIOR VENA CAVA: Visualized portions are normal. LIVER: Normal. The liver is normal in size. The liver contour is normal. Parenchymal echogenicity is normal. No focal hepatic lesion. There is no intrahepatic biliary duct dilatation seen. GALLBLADDER: Surgically absent. COMMON BILE DUCT: Normal in caliber measuring 0.8 cm in diameter. RIGHT KIDNEY: Normal. No hydronephrosis. No renal calculi or focal parenchymal lesions. The kidney measures 10.0 cm in maximum dimension. LEFT KIDNEY: Normal. No hydronephrosis. No renal calculi or focal parenchymal lesions. The kidney measures 10.0 cm in maximum dimension. SPLEEN: Normal. The spleen measures 10.1 cm in maximum dimension. FREE FLUID: None. US/US abdomen complete IMPRESSION: Normal abdominal ultrasound.
== END 2023-02-10 08:56 | disposition home or self-care (01) ==
LOC: HO.US 08:55
PROVIDERS: PCP Pediatrics; Visit Provider Physician Assistant
DX: R74.8 Abnormal levels of other serum enzymes (principal)
CPT/HCPCS: 76700

== ENCOUNTER → 2023-03-11 13:13 | Outpatient (BNVA) | payer OTHER, SELFPAY | PROVIDERS: PCP Pediatrics; Visit Provider Physician Assistant | DX: R19.8 Other specified symptoms and signs involving the digestive system and abdomen (principal); R74.8 Abnormal levels of other serum enzymes; K52.9 Noninfective gastroenteritis and colitis, unspecified | CPT/HCPCS: 99212 ==

== ENCOUNTER 2023-03-15 09:13 | Outpatient (REF) | payer OTHER, SELFPAY ==
[2023-03-15 11:08] LABS: Alanine Aminotransferase 14 U/L (0-31); Albumin Level 3.8 g/dL (3.5-5.0); Alkaline Phosphatase 190 U/L (39-117); Aspartate Amino Transferase 13 U/L (5-31); Bilirubin Direct 0.1 mg/dL (0.0-0.5); Bilirubin Total 0.5 mg/dL (0.0-1.0); Blood Urea Nitrogen 18 mg/dL (9-16); Calcium 9.1 mg/dL (8.4-10.2); Carbon Dioxide 30 mmol/L (22-29); Chloride 108 mmol/L (96-108); Cholesterol 196 mg/dL; Estimated Glomerular Filt Rate 46; Gamma Glutamyl Transpeptidase 58 U/L (7-33); Glucose Random 86 mg/dL (60-115); HDL Cholesterol 55 mg/dL; LDL Cholesterol Calculated 117 mg/dl; Potassium 4.2 mmol/L (3.3-5.1); Sodium 142 mmol/L (135-145); Total Protein 6.3 g/dL (6.5-8.0); Triglycerides 124 mg/dL
[2023-03-15 11:18] LABS: Anion Gap 8 (12-20)
[2023-03-15 11:23] LABS: Thyroid Stimulating Hormone 3.34 uIU/mL (0.32-4.0)
== END 2023-03-15 09:14 | disposition home or self-care (01) ==
LOC: HO.10HDL 09:13
PROVIDERS: Visit Provider Physician Assistant
DX: R74.8 Abnormal levels of other serum enzymes (principal); R19.8 Other specified symptoms and signs involving the digestive system and abdomen
CPT/HCPCS: 36415; 80053; 80061; 82248; 82977; 84443

== ENCOUNTER → 2023-04-06 08:45 | Outpatient (REF) | payer OTHER, SELFPAY ==
--- NOTE | 2023-04-06 08:48 | HM_ITS ---
Conclusion: 1. Patient was monitored for total period of 2 days 2. Baseline was normal sinus rhythm with average heart rate of 80 beats per minute 3. No significant pauses or bradycardia noted 4. Occasional PACs noted with total burden of 0.25% with multiple SVT events longest lasting 23 beats and the fastest at 138 beats per minute 5. No patient reported events MTDD
== END ==
LOC: HO.CARD 08:45
PROVIDERS: PCP Pediatrics; Visit Provider Pediatrics
DX: R00.2 Palpitations (principal)
CPT/HCPCS: 93225

== ENCOUNTER 2023-04-18 21:14 | Emergency (ER) | payer OTHER, SELFPAY ==
[2023-04-18 21:28] VITALS: BP 151/80; PULSE 97; RESP 16; TEMP 36.8; O2SAT 99; BMI 36.1
[2023-04-18 21:55] LABS: MANUAL DIFF FLAG NO
[2023-04-18 21:56] LABS: Basophils Percent Auto 0.7 % (0-2); Eosinophils Absolute Auto 0.2 X10*3/uL (0.0-0.4); Hematocrit 39.5 % (37.0-47.0); Hemoglobin 12.2 g/dl (12.0-16.0); Imm Gran Abs Auto 0.01 X10*3/uL (0.00-0.03); Imm Gran Pct Auto 0.2 % (0.0-0.4); Lymphocytes Absolute Auto 1.5 X10*3/uL (1.2-4.9); Lymphocytes Percent Auto 25.3 % (20-40); Mean Corpuscular HGB Conc 30.9 g/dl (31.0-35.0); Mean Corpuscular Hemoglobin 26.9 pg (27.0-33.0); Mean Platelet Volume 10.9 fL (9.4-12.3); Monocytes Absolute Auto 0.8 X10*3/uL (0.1-1.2); Monocytes Percent Auto 13.9 % (2-11); Neutrophils Absolute Auto 3.4 x10*3/uL (2.0-8.3); Neutrophils Percent Auto 56.9 % (45-73); Platelet Count 206 X10*3/uL (160-400); Red Blood Count 4.54 X10*6/uL (4.20-5.50); White Blood Count 5.9 X10*3/uL (4.8-10.8)
[2023-04-18 22:12] LABS: Alanine Aminotransferase 18 U/L (0-31); Albumin Level 3.8 g/dL (3.5-5.0); Alkaline Phosphatase 179 U/L (39-117); Anion Gap 12 (12-20); Aspartate Amino Transferase 27 U/L (5-31); Bilirubin Total 0.4 mg/dL (0.0-1.0); Blood Urea Nitrogen 15 mg/dL (9-16); Calcium 8.9 mg/dL (8.4-10.2); Carbon Dioxide 26 mmol/L (22-29); Chloride 105 mmol/L (96-108); Creatinine Clr Calc Pharmacy 41.7; Estimated Glomerular Filt Rate 41; Glucose Random 81 mg/dL (60-115); Potassium 4.4 mmol/L (3.3-5.1); Sodium 139 mmol/L (135-145); Total Protein 6.8 g/dL (6.5-8.0)
[2023-04-18 22:19] LABS: Troponin-I High Sensitivity 5.6 ng/L (<3.5-17.0)
[2023-04-18 22:38] LABS: Influenza A PCR NEGATIVE (Negative); Influenza B PCR NEGATIVE (Negative); Resp Syncy Virus RNA Qual PCR NEGATIVE (Negative); SARS COV2 PCR INHOUSE NEGATIVE (Negative)
[2023-04-18 22:49] VITALS: BP 140/82; PULSE 89; RESP 15; TEMP 37.6; O2SAT 96
[2023-04-18 23:07] LABS: Appearance Urine Clear; Color Urine Yellow; Glucose Urine UA Negative (Negative); Leukocyte Esterase Urine Negative (Negative); Nitrite Urine Negative (Negative); PH 5.5 (5.0-9.0); Specific Gravity - Urine 1.025 (1.005-1.025); Urine Blood Negative (Negative); Urine Ketones Negative (Negative); Urine Protein Negative (Neg-Trace)
--- NOTE | 2023-04-18 23:27 | ED_ITS ---
HPI - Nausea/Vomiting/Diarrhea General Chief complaint: Nausea/Vomiting/Diarrhea Stated complaint: vomiting/ body pain Time Seen by Provider: 04/18/23 23:24 Source: patient and family (Dk-) Mode of arrival: ambulatory Limitations: no limitations History of Present Illness HPI Narrative: 68-year-old female who presents emergency department for evaluation of nausea, vomiting, diarrhea. Patient states she has been sick for 4 days. She states that she has had 6 episodes of vomiting per day and constant diarrhea daily. She has not noticed any blood in her emesis or bowel movements. She has been taking a dance a drawn every 6 hours without any relief of her symptoms. She states that she has had chills rhinorrhea, lower abdominal cramping myalgias with no arthralgias she denied fever but was having chills. She states she is feeling weak and dehydrated. The patient has not traveled recently. She has not been on antibiotics recently. Related Data Home Medications Medication Instructions Recorded Confirmed cetirizine 10 mg tablet 10 mg PO DAILY 07/30/20 11/23/22 cholecalciferol (vitamin D3) 50 50 mcg PO BID 07/30/20 11/23/22 mcg (2,000 unit) capsule citalopram 40 mg tablet 40 mg PO DAILY 07/30/20 11/23/22 clonazepam 0.5 mg tablet 0.5 mg PO DAILY PRN anxiety 07/30/20 11/23/22 diphenhydramine HCl 25 mg tablet 25 mg PO BEDTIME PRN allergy 07/30/20 11/23/22 (Benadryl Allergy) levothyroxine 100 mcg tablet 100 mcg PO DAILY 07/30/20 11/23/22 umeclidinium 62.5 mcg/actuation 62.5 inh inhalation BID 07/30/20 11/23/22 blister powder for inhalation (Incruse Ellipta) acetaminophen 650 mg 650 mg PO Q8H PRN pain 10/07/20 11/23/22 tablet,extended release budesonide 0.5 mg/2 mL suspension 0.5 mg inhalation .q 6 h 10/07/20 11/23/22 for nebulization fluticasone propionate 50 1 spray intranasal BID PRN Nasal 07/01/21 11/23/22 mcg/actuation nasal Congestion spray,suspension docusate sodium 100 mg capsule 200 mg PO BEDTIME 11/23/22 11/23/22 (Colace) Previous Rx's Medication Instructions Recorded albuterol sulfate 90 mcg/actuation 2 puff inhalation Q4-6H PRN 08/14/20 aerosol inhaler shortness of breath or wheezing #18 grams meclizine 25 mg tablet 25 mg PO TID PRN dizziness #20 tabs 10/16/21 prednisone 5 mg tablet 5 mg PO BID COPD/asthma 30 days 04/15/22 #60 tabs ipratropium 0.5 mg-albuterol 3 mg 3 ml inhalation QID severe 05/05/22 (2.5 mg base)/3 mL nebulization copd/asthma 30 days #360 mL soln prednisone 5 mg tablet 5 mg PO BID severe COPD 30 days 07/07/22 #60 tabs hydrocortisone 2.5 % topical cream 1 appl [place] BID-QID PRN hemorrhoids 07/09/22 with perineal applicator #30 grams (Procto-Med HC) methylcellulose (laxative) 500 mg 500 mg PO TID #90 tabs 07/09/22 tablet (Citrucel) prednisone 50 mg tablet 50 mg PO DAILY 4 days #4 tabs 10/02/22 loperamide 2 mg capsule (Imodium 2 mg PO Q6H PRN loose stool #30 01/25/23 A-D) caps prednisone 20 mg tablet 40 mg PO DAILY 5 days #10 tabs 02/03/23 pantoprazole 40 mg tablet,delayed 40 mg PO DAILY #30 tabs 03/01/23 release metoclopramide HCl 10 mg tablet 10 mg PO Q6H PRN nausea and 04/19/23 (Reglan) vomiting #14 tabs Allergies Allergy/AdvReac Type Severity Reaction Status Date / Time animal dander Allergy Mild SHORTNESS Verified 04/18/23 21:28 OF BREATH ciprofloxacin [From Cipro] Allergy Mild RASH Verified 04/18/23 21:28 vancomycin [Vancomycin] Allergy Mild SHORTNESS Verified 04/18/23 21:28 OF BREATH amoxicillin [AMOXICILLIN] Allergy Unknown RASH Verified 04/18/23 21:28 Penicillins [PENICILLINS] Allergy Unknown RASH Verified 04/18/23 21:28 Review of Systems Review of Systems: Yes all other systems are reviewed and are negative [facility] Past Medical History [facility] Narrative: Social history: The patient is and her Dk is here in the emergency department with her. She denies tobacco, alcohol and drug use Medical History Acid reflux Acute anxiety Allergic rhinitis Anxiety Asthma Asthma dependent on inhaled steroids Asthma-COPD overlap syndrome COPD (chronic obstructive pulmonary disease) COPD exacerbation Depression Diverticulosis large intestine w/o perforation or abscess w/o bleeding Diverticulosis of colon Hypothyroid Irritable bowel Tubular adenoma Tubular adenoma Surgical History H/O esophagogastroduodenoscopy (~12/2018) History of colonoscopy with polypectomy (~12/2018) History of mandibular surgery Hx of cholecystectomy Hx of tubal ligation Family History Family History Maternal Aunt Pancreatic cancer Maternal Grandmother Diabetes Stroke Maternal Grandfather Diabetes Mother COPD (chronic obstructive pulmonary disease) Father Respiratory failure Social History Social History Household Members: Spouse Household Members Other:: Lives with an 11-year-old granddaughter Housing: House Are you a primary rn wound care to a significant other at home: No Do you presently have visiting nurse or other home services: No Alcohol intake: never Patient Tobacco Use Status: Never used Tobacco Smoked in Last 30 Days: No Use of substances other than those prescribed or required for medical reasons: No Advance Directives: No Advance Directives Information Provided: No service: No Current occupational status: retired Physical Exam Vital Signs: Vital Signs: Last Vital Signs Temp 99.2 F 04/19/23 02:23 Pulse 89 04/19/23 02:23 Resp 14 04/19/23 02:23 BP 124/57 L 04/19/23 02:23 Pulse Ox 94 04/19/23 02:23 O2 Del Method Room Air 04/19/23 02:23 BMI result Body Mass Index 36.1 HEENT: Head: Yes normal to inspection, Yes normocephalic and Yes atraumatic Ears: external ears normal General nose exam: Normal external nose present Face and sinus: Yes normal facial exam Mouth: Normal oral and palatal mucosa present Throat: Yes posterior oropharynx normal Eyes: General: appearance normal, both eyes and all related structures Neck: Neck: Yes normal visual inspection, Yes no lymphadenopathy, Yes trachea midline and Yes supple Chest: Chest palpation & inspection: normal inspection of the chest and normal palpation of entire chest wall Resp: Effort & Inspection: normal respiratory effort and able to speak in complete sentences Auscultation: clear to auscultation bilaterally Cardio: Rate: regular rate Rhythm: regular rhythm Heart sounds: S1 normal heart sound present, S2 normal heart sound present and no murmurs GI: Inspection: Yes normal to inspection Palpation (GI): Soft to palpation, nontender and no guarding Auscultation: normal bowel sounds : General: Yes no CVA tenderness Back/Spine/Pelvis: Back: no CVA tenderness Skin: General skin exam: no rashes or lesions noted Neuro: Cognition (Neuro): normal cognition Motor exam (neuro): 5/5 motor strength present throughout Extrem: General: Yes normal to inspection Psych: Appearance: grossly normal Speech and movement: Normal speech and movement present Affect: normal affect Attitude: cooperative Medications Administered Discontinued Medications Generic Name Dose Route Start Last Admin Trade Name Vernonq PRN Reason Stop Dose Admin Diphenhydramine HCl 25 mg 04/18/23 23:40 04/18/23 23:46 Diphenhydramine Hcl 50 Mg/Ml Vial IVPUSH 04/18/23 23:41 25 mg ONCE ONE Administration Sodium Chloride 1,000 mls @ 999 mls/hr 04/18/23 23:40 04/19/23 01:08 Ns IV 04/19/23 00:40 Infused .Q1H1M STA Infusion Ketorolac Tromethamine 15 mg 04/18/23 23:40 04/18/23 23:46 Ketorolac Tromethamine 15 Mg/Ml Vial IVPUSH 04/18/23 23:41 15 mg ONCE STA Administration Metoclopramide HCl 10 mg 04/18/23 23:40 04/18/23 23:46 Metoclopramide Hcl 10 Mg/2 Ml Vial IVPUSH 04/18/23 23:41 10 mg ONCE STA Administration Medical Decision Making Medical Decision Making MDM Narrative: 68-year-old female history of asthma, COPD, anxiety who presents emergency department for evaluation of 4 days of nausea, vomiting, diarrhea, myalgias, arthralgias, chills with no fever and rhinorrhea. Patient has been taking ondansetron every 6 hours with no relief for symptoms. Patient has not been able to eat or drink over the last 24 hours. Vital signs revealed an elevated blood pressure of 151/80 otherwise unremarkable. Abdominal exam revealed no tenderness. Following tests were ordered on the patient: CBC, CMP, lipase, COVID-19, influenza, RSV and urinalysis. I ordered the following treatments: Normal saline x1 L, Toradol 15 mg IV for abdominal pain, Reglan 10 mg and Benadryl 25 mg for her nausea and vomit. I did order C difficile stool test as well 0230: Patient is feeling significant better after the above treatment Patient's symptoms are consistent with acute viral syndrome. Patient was prescribed Reglan 10 mg every 6 hours as needed for nausea and vomiting, she was advised to take this with 25 mg of Benadryl pain She also advised to take Imodium as directed Patient was given printed and verbal instructions and discharged home. Differential Diagnosis Differential diagnosis includes was not limited to viral syndrome, COVID-19, influenza, diverticulitis, colitis, dehydration, electrolyte abnormality, anemia, C diff colitis, food point Lab Data MDM Lab Attestation statement: I reviewed the patient's lab results. My interpretation laboratory evaluation is as follows: No significant ab normalities 04/18/23 21:50 04/18/23 21:50 Labs: Lab Results 04/18/23 04/18/23 04/18/23 Range/Units 21:50 21:50 21:50 WBC 5.9 (4.8-10.8) X10*3/uL RBC 4.54 (4.20-5.50) X10*6/uL Hgb 12.2 (12.0-16.0) g/dl Hct 39.5 (37.0-47.0) % MCV 87.0 (80.0-98.0) fL MCH 26.9 L (27.0-33.0) pg MCHC 30.9 L (31.0-35.0) g/dl RDW 14.0 (11.0-16.0) % Plt Count 206 D (160-400) X10*3/uL MPV 10.9 (9.4-12.3) fL Immature Gran % (Auto) 0.2 (0.0-0.4) % Neut % (Auto) 56.9 (45-73) % Lymph % (Auto) 25.3 (20-40) % [place] % (Auto) 13.9 H (2-11) % Eos % (Auto) 3.0 (0-4) % Baso % (Auto) 0.7 (0-2) % Lymph # (Auto) 1.5 (1.2-4.9) X10*3/uL [place] # (Auto) 0.8 (0.1-1.2) X10*3/uL Eos # (Auto) 0.2 (0.0-0.4) X10*3/uL Baso # (Auto) 0.0 (0.0-0.2) X10*3/uL Abs Immat Gran (auto) 0.01 (0.00-0.03) X10*3/uL Absolute Neuts (auto) 3.4 (2.0-8.3) x10*3/uL Absolute Nucleated RBC 0.000 (0.0-0.012) X10*3/uL Nucleated RBC % (auto) 0.0 (0.0-0.2) /100WBC Sodium 139 (135-145) mmol/L Potassium 4.4 (3.3-5.1) mmol/L Chloride 105 (96-108) mmol/L Carbon Dioxide 26 (22-29) mmol/L Anion Gap 12 (12-20) BUN 15 (9-16) mg/dL Creatinine 1.29 (0.5-1.4) mg/dL Estim Creat Clear Calc 41.7 Estimated GFR 41 Random Glucose 81 (60-115) mg/dL Calcium 8.9 (8.4-10.2) mg/dL Total Bilirubin 0.4 (0.0-1.0) mg/dL AST 27 (5-31) U/L ALT 18 (0-31) U/L Alkaline Phosphatase 179 H (39-117) U/L Troponin I High Sens 5.6 D (<3.5-17.0) ng/L Total Protein 6.8 (6.5-8.0) g/dL Albumin 3.8 (3.5-5.0) g/dL Urine Color Urine Appearance Urine pH (5.0-9.0) Ur Specific [place] (1.005-1.025) Urine Protein (Neg-Trace) mg/dL Urine Glucose (UA) (Negative) mg/dL Urine Ketones (Negative) mg/dL Urine Blood (Negative) Urine Nitrite (Negative) Ur Leukocyte Esterase (Negative) Influenza Type A (PCR) (Negative) Influenza Type B (PCR) (Negative) RSV RNA Qual (PCR) (Negative) SARS-CoV-2 RNA (RT-PCR) (Negative) 04/18/23 04/18/23 Range/Units 21:50 23:00 WBC (4.8-10.8) X10*3/uL RBC (4.20-5.50) X10*6/uL Hgb (12.0-16.0) g/dl Hct (37.0-47.0) % MCV (80.0-98.0) fL MCH (27.0-33.0) pg MCHC (31.0-35.0) g/dl RDW (11.0-16.0) % Plt Count (160-400) X10*3/uL MPV (9.4-12.3) fL Immature Gran % (Auto) (0.0-0.4) % Neut % (Auto) (45-73) % Lymph % (Auto) (20-40) % [place] % (Auto) (2-11) % Eos % (Auto) (0-4) % Baso % (Auto) (0-2) % Lymph # (Auto) (1.2-4.9) X10*3/uL [place] # (Auto) (0.1-1.2) X10*3/uL Eos # (Auto) (0.0-0.4) X10*3/uL Baso # (Auto) (0.0-0.2) X10*3/uL Abs Immat Gran (auto) (0.00-0.03) X10*3/uL Absolute Neuts (auto) (2.0-8.3) x10*3/uL Absolute Nucleated RBC (0.0-0.012) X10*3/uL Nucleated RBC % (auto) (0.0-0.2) /100WBC Sodium (135-145) mmol/L Potassium (3.3-5.1) mmol/L Chloride (96-108) mmol/L Carbon Dioxide (22-29) mmol/L Anion Gap (12-20) BUN (9-16) mg/dL Creatinine (0.5-1.4) mg/dL Estim Creat Clear Calc Estimated GFR Random Glucose (60-115) mg/dL Calcium (8.4-10.2) mg/dL Total Bilirubin (0.0-1.0) mg/dL AST (5-31) U/L ALT (0-31) U/L Alkaline Phosphatase (39-117) U/L Troponin I High Sens (<3.5-17.0) ng/L Total Protein (6.5-8.0) g/dL Albumin (3.5-5.0) g/dL Urine Color Yellow Urine Appearance Clear Urine pH 5.5 (5.0-9.0) Ur Specific [place] 1.025 (1.005-1.025) Urine Protein Negative (Neg-Trace) mg/dL Urine Glucose (UA) Negative (Negative) mg/dL Urine Ketones Negative (Negative) mg/dL Urine Blood Negative (Negative) Urine Nitrite Negative (Negative) Ur Leukocyte Esterase Negative (Negative) Influenza Type A (PCR) NEGATIVE (Negative) Influenza Type B (PCR) NEGATIVE (Negative) RSV RNA Qual (PCR) NEGATIVE (Negative) SARS-CoV-2 RNA (RT-PCR) NEGATIVE (Negative) Discharge Plan Discharge Clinical Impression: Viral syndrome, Acute dehydration Vomiting Qualifiers: Vomiting type: unspecified Nausea presence: with nausea Qualified Code(s): R11.2 - Nausea with vomiting, unspecified Diarrhea Qualifiers: Diarrhea type: unspecified type Qualified Code(s): R19.7 - Diarrhea, unspecified Patient Disposition: Home, Self-Care Instructions: Viral Syndrome (ED) Additional Instructions: Your blood work was unremarkable. Your symptoms are consistent with a viral infection. Take Reglan (metoclopramide) 10 mg pills, 1 pill every 6-8 hours as needed for nausea and vomiting . When you take Reglan also take 25 mg of Benadryl orally. These medications will make you sleepy. Do not drive while taking these med ications. For diarrhea I want you to take Imodium 2 mg pills. Take 2 pills after the 1st loose, diarrheal stool then 1 pill after each loose, diarrheal stool up to 8 pills per day. This usually stops diarrhea within 24 hours. Follow-up with your doctor in 2 days. Please return to the emergency department if your symptoms get worse or if you develop any symptoms that are concerning to you. Prescriptions: New metoclopramide HCl [Reglan] 10 mg tablet 10 mg PO Q6H PRN (Reason: nausea and vomiting) Qty: 14 0RF No Action ipratropium-albuterol 0.5 mg-3 mg(2.5 mg base)/3 mL solution for nebulization 3 ml inhalation QID 30 Days Qty: 360 3RF prednisone 5 mg tablet 5 mg PO BID 30 Days Qty: 60 3RF pantoprazole 40 mg tablet,delayed release (DR/EC) 40 mg PO DAILY Qty: 30 2RF albuterol sulfate 90 mcg/actuation HFA aerosol inhaler 2 puff inhalation Q4-6H PRN (Reason: shortness of breath or wheezing) Qty: 18 0RF docusate sodium [Colace] 100 mg capsule 200 mg PO BEDTIME meclizine 25 mg tablet 25 mg PO TID PRN (Reason: dizziness) Qty: 20 0RF prednisone 50 mg tablet 50 mg PO DAILY 4 Days Qty: 4 0RF prednisone 20 mg tablet 40 mg PO DAILY 5 Days Qty: 10 0RF diphenhydramine HCl [Benadryl Allergy] 25 mg tablet 25 mg PO BEDTIME PRN (Reason: allergy) Incruse Ellipta 62.5 mcg/actuation blister with device 62.5 inh inhalation BID cholecalciferol (vitamin D3) 50 mcg (2,000 unit) capsule 50 mcg PO BID levothyroxine 100 mcg tablet 100 mcg PO DAILY cetirizine 10 mg tablet 10 mg PO DAILY citalopram 40 mg tablet 40 mg PO DAILY clonazepam 0.5 mg tablet 0.5 mg PO DAILY PRN (Reason: anxiety) fluticasone propionate 50 mcg/actuation spray,suspension 1 spray intranasal BID PRN (Reason: Nasal Congestion) budesonide 0.5 mg/2 mL suspension for nebulization 0.5 mg inhalation .q 6 h acetaminophen 650 mg tablet extended release 650 mg PO Q8H PRN (Reason: pain) prednisone 5 mg tablet 5 mg PO BID 30 Days Qty: 60 3RF hydrocortisone [Procto-Med HC] 2.5 % cream with perineal applicator 1 appl [place] BID-QID PRN (Reason: hemorrhoids) Qty: 30 3RF Citrucel 500 mg tablet 500 mg PO TID Qty: 90 5RF loperamide [Imodium A-D] 2 mg capsule 2 mg PO Q6H PRN (Reason: loose stool) Qty: 30 0RF Rx Instructions: Take 2 cap after 1st loose stool- One caplet after each subsequent loose stools No more than 4 caps in a 24 hour.
[2023-04-18] MEDS: Ketorolac Tromethamine 15 MG/ML VIAL IVPUSH (23:46)
[2023-04-18] MEDS: 0.9 % Sodium Chloride 1,000 ML 999 ML IV (23:46)
[2023-04-18] MEDS: Metoclopramide HCl 10 MG/2 ML VIAL IVPUSH (23:46)
[2023-04-18] MEDS: diphenhydrAMINE HCL 50 MG/ML VIAL 25 MG IVPUSH (23:46)
[2023-04-19 02:23] VITALS: BP 124/57; PULSE 89; RESP 14; TEMP 37.3; O2SAT 94
== END 2023-04-19 03:04 | disposition home or self-care (01) ==
PROVIDERS: Emergency Provider Emergency Medicine Emergency Medical Services; PCP Pediatrics
DX: B34.9 Viral infection, unspecified (principal); E86.0 Dehydration; R11.2 Nausea with vomiting, unspecified; R19.7 Diarrhea, unspecified; Z20.822 Contact with and (suspected) exposure to COVID-19; Z20.828 Contact with and (suspected) exposure to other viral communicable diseases; Z79.899 Other long term (current) drug therapy
CPT/HCPCS: 0241U; 80053; 81003; 84484; 85025; 96361; 96374; 96375; 99284; 99285; J1200; J1885; J2765

== ENCOUNTER 2023-06-16 10:50 | Outpatient (AMB) | payer OTHER, SELFPAY ==
--- NOTE | 2023-06-16 10:53 | MHC.OFFVIS ---
Intake Vital Signs 06/16/23 10:55 Height 5 ft 1 in Weight 187 lb BMI 35.3 BP 131/67 Blood Pressure Location Lt brachial Position Sitting Pulse 74 Intake Visit Reasons: 3 month follow up labs Intake Note: Patient follow up for chronic diarrhea. Patient denies any GI issues. [employer] Required: No Accompanied by: Self / Same As Patient Allergies animal dander Allergy (Mild, Verified 06/16/23 10:53) SHORTNESS OF BREATH ciprofloxacin [From Cipro] Allergy (Mild, Verified 06/16/23 10:53) RASH vancomycin [Vancomycin] Allergy (Mild, Verified 06/16/23 10:53) SHORTNESS OF BREATH amoxicillin [AMOXICILLIN] Allergy (Unknown, Verified 06/16/23 10:53) RASH Penicillins [PENICILLINS] Allergy (Unknown, Verified 06/16/23 10:53) RASH Medication List - Last Reconciled 06/16/23 by Leonie Puente PA-C acetaminophen ER 650 mg PO Q8H PRN albuterol sulfate 90 mcg/actuation 2 puffs inhalation Q4-6H PRN budesonide 0.5 mg inhalation .q 6 h cetirizine 10 mg PO DAILY cholecalciferol (vitamin D3) 50 mcg PO BID citalopram 40 mg PO DAILY clonazepam 0.5 mg PO DAILY PRN diphenhydramine HCl (Benadryl Allergy) 25 mg PO BEDTIME PRN docusate sodium (Colace) 200 mg PO BEDTIME fluticasone propionate 50 mcg/actuation 1 spray intranasal BID PRN hydrocortisone 2.5% (Procto-Med HC) 1 appl [place] BID-QID PRN ipratropium-albuterol 0.5 mg-3 mg(2.5 mg base)/3 mL 3 mL inhalation QID 30 days levothyroxine 100 mcg PO DAILY loperamide (Imodium A-D) 2 mg PO Q6H PRN meclizine 25 mg PO TID PRN methylcellulose (laxative) (Citrucel) 500 mg PO TID metoclopramide HCl (Reglan) 10 mg PO Q6H PRN pantoprazole 40 mg PO DAILY prednisone 50 mg PO DAILY 4 days prednisone 40 mg (2 x 20 mg) PO DAILY 5 days prednisone 5 mg PO BID 30 days prednisone 5 mg PO BID 30 days umeclidinium 62.5 mcg/actuation (Incruse Ellipta) 62.5 inhalations inhalation BID HPI HPI Comments History of Present Illness Details A 68-year-old female follows up with diarrhea/IBS She has no GI complaints today, she feels that she has been following regimen being consistent-she has been taking antidepressant that she feels has been very helpful for her she is awaiting her appointment with a psychotherapist. She says that the referral has already been sent. She does help a lot with her grandchildren-and has been able to maintain better mood. She is eating better. She has not had diarrhea. No nausea, vomiting, abdominal pain, hematemesis, hematochezia fever or chills [facility] Medical History (Updated 06/16/23 @ 11:33 by Leonie Puente PA-C) Acid reflux Acute anxiety Allergic rhinitis Anxiety Asthma Asthma dependent on inhaled steroids Asthma-COPD overlap syndrome COPD (chronic obstructive pulmonary disease) COPD exacerbation Depression Diverticulosis large intestine w/o perforation or abscess w/o bleeding Diverticulosis of colon Hypothyroid Irritable bowel Tubular adenoma Tubular adenoma Surgical History H/O esophagogastroduodenoscopy (~12/2018) History of colonoscopy with polypectomy (~12/2018) History of mandibular surgery Hx of cholecystectomy Hx of tubal ligation Family History Maternal Aunt Pancreatic cancer Maternal Grandmother Diabetes Stroke Maternal Grandfather Diabetes Mother COPD (chronic obstructive pulmonary disease) Father Respiratory failure Social History Household Members: Spouse Household Members Other:: Lives with an 11-year-old granddaughter Housing: House Are you a primary post acute care nurse to a significant other at home: No Do you presently have visiting nurse or other home services: No Alcohol intake: never Patient Tobacco Use Status: Never used Tobacco service: No Current occupational status: retired Review of Systems Const All systems reviewed & are unremarkable except as noted in HPI and below Card Denies chest pain and Denies dyspnea Resp Denies dyspnea GI Denies abdominal pain, Denies diarrhea, Denies nausea and Denies vomiting Physical Exam Vital Signs: Last Vital Signs Pulse 74 06/16/23 10:55 BP 131/67 06/16/23 10:55 BMI result Body Mass Index 35.3 Const General: cooperative, healthy appearing and comfortable Orientation/consciousness: patient oriented x3 Limitations: no limitations Resp Effort & Inspection: normal respiratory effort and able to speak in complete sentences Neuro General: patient oriented x3 Extrem General: Yes full ROM Psych Appearance: grossly normal and well kempt Mental Status: mental status grossly normal Speech and movement: Normal speech and movement present and Clear speech present Affect: normal affect Attitude: cooperative Thought process: Normal thought process present Thought content: Normal thought content present Insight: Good insight present (Psych) Judgement: Good judgement present (Psych) Assessment & Plan Assessment & Plan (1) Over weight: Comment: Patient struggling with weight, maybe multiple dietary modifications requesting to be seen by Nutrition or weight management Code(s): E66.3 - Overweight Plan: Will place referral to weight management if appropriate (2) Irritable bowel: Comment: Continue to regimen Psychotherapy Code(s): K58.9 - Irritable bowel syndrome without diarrhea Orders: Referrals Bariatric Surgery Referral E66.3 - Overweight Patient Instructions: Very pleasant 66 year old female here to follow-up with IBS. She has been managing social stresses-and I depressed and has been helpful, she will continue she is awaiting her psychotherapy appointment. We had a lengthy discussion regard to her home life, with some struggles, Has been able to manage She is requesting nutrition/weight management referral she is also not been successful with weight loss. Encouraged to call with questions or concerns. Appreciate the opportunity assist in care the patient Coding Level of Care Code Est Pt Level 3 (72998) Diagnoses Over weight E66.3 Irritable bowel K58.9 Time Spent (min) 30
[2023-06-16 10:55] VITALS: BP 131/67; PULSE 74; BMI 35.3
== END 2023-06-16 11:58 | disposition home or self-care (01) ==
PROVIDERS: Visit Provider Physician Assistant
DX: E66.3 Overweight (principal); K58.9 Irritable bowel syndrome, unspecified
CPT/HCPCS: 99213

== ENCOUNTER → 2023-06-16 10:50 | Outpatient (BNVA) | payer OTHER, SELFPAY | PROVIDERS: Visit Provider Physician Assistant | DX: K58.9 Irritable bowel syndrome, unspecified (principal); K57.30 Diverticulosis of large intestine without perforation or abscess without bleeding; E66.3 Overweight; Z68.35 Body mass index [BMI] 35.0-35.9, adult; Z90.49 Acquired absence of other specified parts of digestive tract | CPT/HCPCS: 99212 ==

== ENCOUNTER 2023-07-15 10:00 | Emergency (ER) | payer OTHER, SELFPAY ==
--- NOTE | ~2023-07-15 | XR_ITS ---
EXAMINATION: XR CHEST CLINICAL INFORMATION: Shortness of breath with wheezing COMPARISON: Previous dated 02/02/2023 TECHNIQUE: Frontal view of the chest was obtained. FINDINGS: No acute finding. Lung [place] are grossly clear and comparable to previous. There is no infiltrate. No effusion. The cardiac silhouette is within normal limits. The hilar regions do not appear pathologically enlarged. XR/XR chest 1V IMPRESSION: No acute finding.
[2023-07-15 10:02] VITALS: BP 115/85; PULSE 119; RESP 19; TEMP 36.6; O2SAT 95; BMI 34.3
--- NOTE | 2023-07-15 11:46 | ECG_ITS ---
Test Reason : ASTHMA Blood Pressure : / mmHG Vent. Rate : 081 BPM Atrial Rate : 081 BPM P-R Int : 160 ms QRS Dur : 078 ms QT Int : 380 ms P-R-T Axes : 071 049 075 degrees QTc Int : 441 ms Normal sinus rhythm with sinus arrhythmia Normal ECG When compared with ECG of 02-FEB-2023 20:18, Vent. rate has decreased BY 41 BPM Referred By: Alejandrina Wise Electronically Signed By:MARY STALLWORTH
[2023-07-15 11:58] VITALS: PULSE 85; O2SAT 97
[2023-07-15 12:06] VITALS: PULSE 100; RESP 18; O2SAT 95
[2023-07-15] MEDS: Albuterol Sulfate 2.5 MG, Albuterol Sulfate (0.083%) 2.5 MG 5 MG INHALE ×3 (12:06→15:05)
[2023-07-15 12:13] LABS: MANUAL DIFF FLAG NO
[2023-07-15] MEDS: methylPREDNISolone Sod Succ 125 MG/2 ML VIAL IVPUSH (12:17)
[2023-07-15 12:18] LABS: Basophils Absolute Auto 0.1 X10*3/uL (0.0-0.2); Basophils Percent Auto 0.9 % (0-2); Eosinophils Absolute Auto 0.3 X10*3/uL (0.0-0.4); Eosinophils Percent Auto 2.6 % (0-4); Hematocrit 40.6 % (37.0-47.0); Hemoglobin 12.7 g/dl (12.0-16.0); Imm Gran Abs Auto 0.02 X10*3/uL (0.00-0.03); Imm Gran Pct Auto 0.2 % (0.0-0.4); Lymphocytes Absolute Auto 1.9 X10*3/uL (1.2-4.9); Lymphocytes Percent Auto 19.5 % (20-40); Mean Corpuscular HGB Conc 31.3 g/dl (31.0-35.0); Mean Corpuscular Hemoglobin 26.9 pg (27.0-33.0); Mean Platelet Volume 11.1 fL (9.4-12.3); Monocytes Absolute Auto 0.8 X10*3/uL (0.1-1.2); Monocytes Percent Auto 8.6 % (2-11); Neutrophils Absolute Auto 6.6 x10*3/uL (2.0-8.3); Neutrophils Percent Auto 68.2 % (45-73); Platelet Count 246 X10*3/uL (160-400); Red Blood Count 4.72 X10*6/uL (4.20-5.50); White Blood Count 9.6 X10*3/uL (4.8-10.8)
--- NOTE | 2023-07-15 12:28 | ED_ITS ---
HPI - URI/Sore Throat General Chief Complaint: Upper Respiratory Symptoms Stated Complaint: asthma Time Seen by Provider: 07/15/23 11:37 Source: patient, RN notes reviewed and old records reviewed Mode of arrival: ambulatory History of Present Illness HPI Narrative: 68-year-old female with a past medical history of asthma/COPD overlap syndrome, tubular adenoma, anxiety, hypothyroid, depression, presenting to the ED complaining of asthma exacerbation x 1 week with worsening dry cough, exertional dyspnea, and chest tightness. Admits to using neb machine/inhalers at home without relief. Denies fever/chills, recent travel, sick contacts, pedal edema, calf pain. MD elicited complaint: cough Related Data Home Medications Medication Instructions Recorded Confirmed cetirizine 10 mg tablet 10 mg PO DAILY 07/30/20 11/23/22 cholecalciferol (vitamin D3) 50 50 mcg PO BID 07/30/20 11/23/22 mcg (2,000 unit) capsule citalopram 40 mg tablet 40 mg PO DAILY 07/30/20 11/23/22 clonazepam 0.5 mg tablet 0.5 mg PO DAILY PRN anxiety 07/30/20 11/23/22 diphenhydramine HCl 25 mg tablet 25 mg PO BEDTIME PRN allergy 07/30/20 11/23/22 (Benadryl Allergy) levothyroxine 100 mcg tablet 100 mcg PO DAILY 07/30/20 11/23/22 umeclidinium 62.5 mcg/actuation 62.5 inh inhalation BID 07/30/20 11/23/22 blister powder for inhalation (Incruse Ellipta) acetaminophen 650 mg 650 mg PO Q8H PRN pain 10/07/20 11/23/22 tablet,extended release budesonide 0.5 mg/2 mL suspension 0.5 mg inhalation .q 6 h 10/07/20 11/23/22 for nebulization fluticasone propionate 50 1 spray intranasal BID PRN Nasal 07/01/21 11/23/22 mcg/actuation nasal Congestion spray,suspension docusate sodium 100 mg capsule 200 mg PO BEDTIME 11/23/22 11/23/22 (Colace) Previous Rx's Medication Instructions Recorded albuterol sulfate 90 mcg/actuation 2 puff inhalation Q4-6H PRN 08/14/20 aerosol inhaler shortness of breath or wheezing #18 grams meclizine 25 mg tablet 25 mg PO TID PRN dizziness #20 tabs 10/16/21 prednisone 5 mg tablet 5 mg PO BID COPD/asthma 30 days 04/15/22 #60 tabs ipratropium 0.5 mg-albuterol 3 mg 3 ml inhalation QID severe 05/05/22 (2.5 mg base)/3 mL nebulization copd/asthma 30 days #360 mL soln prednisone 5 mg tablet 5 mg PO BID severe COPD 30 days 07/07/22 #60 tabs hydrocortisone 2.5 % topical cream 1 appl DC BID-QID PRN hemorrhoids 07/09/22 with perineal applicator #30 grams (Procto-Med HC) methylcellulose (laxative) 500 mg 500 mg PO TID #90 tabs 07/09/22 tablet (Citrucel) prednisone 50 mg tablet 50 mg PO DAILY 4 days #4 tabs 10/02/22 loperamide 2 mg capsule (Imodium 2 mg PO Q6H PRN loose stool #30 01/25/23 A-D) caps prednisone 20 mg tablet 40 mg (2 x 20 mg) PO DAILY 5 days 02/03/23 #10 tabs metoclopramide HCl 10 mg tablet 10 mg PO Q6H PRN nausea and 04/19/23 (Reglan) vomiting #14 tabs pantoprazole 40 mg tablet,delayed 40 mg PO DAILY #30 tabs 05/31/23 release albuterol sulfate 90 mcg/actuation 2 puff inhalation Q4-6H PRN 07/15/23 aerosol inhaler shortness of breath or wheezing #6.7 grams prednisone 20 mg tablet 40 mg (2 x 20 mg) PO DAILY 5 days 07/15/23 #10 tabs Allergies Allergy/AdvReac Type Severity Reaction Status Date / Time animal dander Allergy Mild SHORTNESS Verified 07/15/23 10:02 OF BREATH ciprofloxacin [From Cipro] Allergy Mild RASH Verified 07/15/23 10:02 vancomycin [Vancomycin] Allergy Mild SHORTNESS Verified 07/15/23 10:02 OF BREATH amoxicillin [AMOXICILLIN] Allergy Unknown RASH Verified 07/15/23 10:02 Penicillins [PENICILLINS] Allergy Unknown RASH Verified 07/15/23 10:02 Review of Systems 2 Review of Systems: Constitutional: No Fever, No Chills ENT/Mouth: No Ear Pain, No Nasal Congestion, No sore throat, No Rhinorrhea, No Swallowing Difficulty Cardiovascular: + Chest Pain, + SOB Respiratory: + Cough, No Sputum, + Wheezing Gastrointestinal: No Nausea, No Vomiting, No Diarrhea, No Constipation, No Abdominal pain Musculoskeletal: No joint pain, No Myalgias, No Joint Swelling Skin: No Skin Lesions, No rash Neuro: No Weakness Yes all other systems are reviewed and are negative Constitutional: Constitutional: Reports as per [facility] Past Medical History Attestation statement: The following information was validated with the patient. Source: old records reviewed Medical History Acid reflux Acute anxiety Allergic rhinitis Anxiety Asthma Asthma dependent on inhaled steroids Asthma-COPD overlap syndrome COPD (chronic obstructive pulmonary disease) COPD exacerbation Depression Diverticulosis large intestine w/o perforation or abscess w/o bleeding Diverticulosis of colon Hypothyroid Irritable bowel Tubular adenoma Tubular adenoma Surgical History H/O esophagogastroduodenoscopy (~12/2018) History of colonoscopy with polypectomy (~12/2018) History of mandibular surgery Hx of cholecystectomy Hx of tubal ligation Family History Family History Maternal Aunt Pancreatic cancer Maternal Grandmother Diabetes Stroke Maternal Grandfather Diabetes Mother COPD (chronic obstructive pulmonary disease) Father Respiratory failure Social History Social History Household Members: Spouse Household Members Other:: Lives with an 11-year-old granddaughter Housing: House Are you a primary rn acute care to a significant other at home: No Do you presently have visiting nurse or other home services: No Alcohol intake: never Patient Tobacco Use Status: Never used Tobacco Advance Directives: No Advance Directives Information Provided: Yes service: No Current occupational status: retired Physical Exam 2 Vital Signs: Vital Signs: Last Vital Signs Temp 97.8 F 07/15/23 16:45 Pulse 101 H 07/15/23 16:45 Resp 14 07/15/23 16:45 BP 130/61 07/15/23 16:45 Pulse Ox 95 07/15/23 16:45 O2 Del Method Room Air 07/15/23 16:45 BMI result Body Mass Index 34.3 Const: General: cooperative, healthy appearing and no acute distress O rientation/consciousness: patient oriented x3 Limitations: no limitations HEENT: Head: Yes normal to inspection and Yes atraumatic Ears: hearing grossly normal bilaterally General nose exam: Normal external nose present Face and sinus: Yes normal facial exam Throat: Yes posterior oropharynx normal Eyes: General: appearance normal, both eyes and all related structures EOM: EOMs intact bilaterally Neck: Neck: Yes normal visual inspection and Yes no meningeal signs Resp: Effort & Inspection: audible wheezes, labored, no respiratory distress, no stridor and not tachypneic Auscultation: wheezes expiratory wheezes and throughout and diminished lung sounds diffuse Cardio: Rate: regular rate Heart sounds: S1 normal heart sound present and S2 normal heart sound present Skin: Rashes: no rashes Wounds: no wounds Neuro: General: patient oriented x3, tone normal and no meningeal signs C ranial nerves: Yes CN's II-XII intact bilaterally Gait exam (Neuro): Normal gait present Extrem: General: Yes normal to inspection, Yes no pedal edema and Yes no calf tenderness Course Course Course Narrative: -labs reassuring. Troponin negative -1350--on re-evaluation patient still with diffuse expiratory wheeze, additional DuoNeb ordered via respiratory as well as IV magnesium XR chest 1V IMPRESSION: No acute finding. -1605--after a 3rd DuoNeb patient reports symptomatic improvement, lungs CTA. Feels safe for discharge home. Results discussed with patient including worrisome signs and symptoms and strict return precautions, and when to return to the emergency department. They verbalized understanding and feel safe for discharge at this time. Medications Administered Discontinued Medications Generic Name Dose Route Start Last Admin Trade Name Freq PRN Reason Stop Dose Admin Albuterol Sulfate 2.5 mg/ 5 mg 07/15/23 12:02 07/15/23 12:06 Albuterol Sulfate 2.5 mg INHALE 07/15/23 12:03 5 mg ONCE ONE Administration Albuterol Sulfate 2.5 mg/ 5 mg 07/15/23 13:23 07/15/23 13:26 Albuterol Sulfate 2.5 mg INHALE 07/15/23 13:24 5 mg ONCE ONE Administration Albuterol Sulfate 2.5 mg/ 5 mg 07/15/23 15:03 07/15/23 15:05 Albuterol Sulfate 2.5 mg INHALE 07/15/23 15:04 5 mg ONCE ONE Administration Cyclobenzaprine HCl 5 mg 07/15/23 13:19 07/15/23 13:36 Cyclobenzaprine Hcl 5 Mg Tablet PO 07/15/23 13:20 5 mg ONCE ONE Administration Magnesium Sulfate 2 gm in 50 mls @ 25 mls/hr 07/15/23 13:19 07/15/23 14:16 Magnesium Sulfate/H2o IV 07/15/23 15:18 Infused ONCE ONE Infusion Lidocaine 1 patch 07/15/23 13:19 07/15/23 13:37 Lidocaine 4 % Patch Adh..Patch TRANSDERMA 07/15/23 13:20 1 patch ONCE ONE Administration Protocol Methylprednisolone Sodium Succinate 125 mg 07/15/23 11:46 07/15/23 12:17 Methylprednisolone Sod Succ 125 Mg/2 Ml Vial IVPUSH 07/15/23 11:47 125 mg ONCE ONE Administration Medical Decision Making Medical Decision Making MDM Narrative: 68-year-old female with a past medical history of asthma/COPD overlap syndrome, tubular adenoma, anxiety, hypothyroid, depression, presenting to the ED complaining of asthma exacerbation x 1 week with worsening dry cough, exertional dyspnea, and chest tightness. On exam initially tachycardic, audible wheeze appreciated, tachypneic, diffuse expiratory wheeze and diminished lung sounds throughout. No pedal edema/calf tenderness. Concern for asthma exacerbation versus viral syndrome. Rule out pneumonia. Lower suspicion for DVT/PE, CHF Plan: EKG, labs, CXR, viral testing, DuoNeb, IV Solu-Medrol, re-evaluate Please refer to course for remaining clinical decision making, interpretation of labs/imaging results, and discussions with consultants and/or family members. Differential Diagnosis Differential Diagnoses: The differential diagnosis associated with the presentation includes As above Admission/Observation Consideration of admission/observation: Escalation of care including admission/observation considered Lab Data [facility] Lab Attestation statement: I reviewed the patient's lab results. 07/15/23 12:05 07/15/23 12:05 Labs: Lab Results 07/15/23 Range/Units 12:05 WBC 9.6 (4.8-10.8) X10*3/uL RBC 4.72 (4.20-5.50) X10*6/uL Hgb 12.7 (12.0-16.0) g/dl Hct 40.6 (37.0-47.0) % MCV 86.0 (80.0-98.0) fL MCH 26.9 L (27.0-33.0) pg MCHC 31.3 (31.0-35.0) g/dl RDW 15.0 (11.0-16.0) % Plt Count 246 (160-400) X10*3/uL MPV 11.1 (9.4-12.3) fL Immature Gran % (Auto) 0.2 (0.0-0.4) % Neut % (Auto) 68.2 (45-73) % Lymph % (Auto) 19.5 L (20-40) % [place] % (Auto) 8.6 (2-11) % Eos % (Auto) 2.6 (0-4) % Baso % (Auto) 0.9 (0-2) % Lymph # (Auto) 1.9 (1.2-4.9) X10*3/uL [place] # (Auto) 0.8 (0.1-1.2) X10*3/uL Eos # (Auto) 0.3 (0.0-0.4) X10*3/uL Baso # (Auto) 0.1 (0.0-0.2) X10*3/uL Abs Immat Gran (auto) 0.02 (0.00-0.03) X10*3/uL Absolute Neuts (auto) 6.6 (2.0-8.3) x10*3/uL Absolute Nucleated RBC 0.000 (0.0-0.012) X10*3/uL Nucleated RBC % (auto) 0.0 (0.0-0.2) /100WBC Sodium 143 (135-145) mmol/L Potassium 4.3 (3.3-5.1) mmol/L Chloride 109 H (96-108) mmol/L Carbon Dioxide 27 (22-29) mmol/L Anion Gap 11 L (12-20) BUN 16 (9-16) mg/dL Creatinine 1.09 (0.5-1.4) mg/dL Estim Creat Clear Calc 53.9 Estimated GFR 50 Random Glucose 85 (60-115) mg/dL Calcium 9.5 D (8.4-10.2) mg/dL Troponin I High Sens < 2.7 D (<3.5-17.0) ng/L Independent Interpretation I performed an independent interpretation of an: EKG (EKG normal sinus rhythm with sinus arrhythmia at a rate of 81. QTC 441. No STEMI.) Radiology Impression Discussion of test interpretation with radiology: I have reviewed the radiologist's reading. Independent Historian Clinical information obtained from an independent historian. History obtained from or confirmed by: Spouse External Record Review External record reviewed: Inpatient record, Office record, Outpatient record, Prior outpatient labs, Prior outpatient radiology, Primary care record and Outside ED record Tests considered The following testing was considered but not selected: As above Chronic Conditions Patient?s care impacted by: Other (Asthma/COPD) Critical Care Time Critical Care Time Critical Care Time: Yes Total Critical Care Time: 40 Attestation: I have personally provided critical care time exclusive of time spent on separately billable procedures. Time includes review of lab data, radiology results, discussion with consultants, and monitoring for potential decompensation. Intervention performed as documented. Discharge Plan Discharge Clinical Impression: Asthma exacerbation Patient Disposition: Home, Self-Care Instructions: Asthma (DC) Additional Instructions: Your blood work and x-ray were reassuring Continue to use her neb machine inhalers at home in addition use prednisone Please have close follow-up with her doctor If symptoms persist or worsen return to the ED Prescriptions: New prednisone 20 mg tablet 40 mg PO DAILY 5 Days Qty: 10 0RF albuterol sulfate 90 mcg/actuation HFA aerosol inhaler 2 puff inhalation Q4-6H PRN (Reason: shortness of breath or wheezing) Qty: 6.7 0RF No Action ipratropium-albuterol 0.5 mg-3 mg(2.5 mg base)/3 mL solution for nebulization 3 ml inhalation QID 30 Days Qty: 360 3RF prednisone 5 mg tablet 5 mg PO BID 30 Days Qty: 60 3RF pantoprazole 40 mg tablet,delayed release (DR/EC) 40 mg PO DAILY Qty: 30 2RF albuterol sulfate 90 mcg/actuation HFA aerosol inhaler 2 puff inhalation Q4-6H PRN (Reason: shortness of breath or wheezing) Qty: 18 0RF docusate sodium [Colace] 100 mg capsule 200 mg PO BEDTIME meclizine 25 mg tablet 25 mg PO TID PRN (Reason: dizziness) Qty: 20 0RF prednisone 50 mg tablet 50 mg PO DAILY 4 Days Qty: 4 0RF prednisone 20 mg tablet 40 mg PO DAILY 5 Days Qty: 10 0RF metoclopramide HCl [Reglan] 10 mg tablet 10 mg PO Q6H PRN (Reason: nausea and vomiting) Qty: 14 0RF diphenhydramine HCl [Benadryl Allergy] 25 mg tablet 25 mg PO BEDTIME PRN (Reason: allergy) Incruse Ellipta 62.5 mcg/actuation blister with device 62.5 inh inhalation BID cholecalciferol (vitamin D3) 50 mcg (2,000 unit) capsule 50 mcg PO BID levothyroxine 100 mcg tablet 100 mcg PO DAILY cetirizine 10 mg tablet 10 mg PO DAILY citalopram 40 mg tablet 40 mg PO DAILY clonazepam 0.5 mg tablet 0.5 mg PO DAILY PRN (Reason: anxiety) fluticasone propionate 50 mcg/actuation spray,suspension 1 spray intranasal BID PRN (Reason: Nasal Congestion) budesonide 0.5 mg/2 mL suspension for nebulization 0.5 mg inhalation .q 6 h acetaminophen 650 mg tablet extended release 650 mg PO Q8H PRN (Reason: pain) prednisone 5 mg tablet 5 mg PO BID 30 Days Qty: 60 3RF hydrocortisone [Procto-Med HC] 2.5 % cream with perineal applicator 1 appl DC BID-QID PRN (Reason: hemorrhoids) Qty: 30 3RF Citrucel 500 mg tablet 500 mg PO TID Qty: 90 5RF loperamide [Imodium A-D] 2 mg capsule 2 mg PO Q6H PRN (Reason: loose stool) Qty: 30 0RF Rx Instructions: Take 2 cap after 1st loose stool- One caplet after each subsequent loose stools No more than 4 caps in a 24 hour. Referrals: Sosa Clement MD [Primary Care Provider] - 3 days Interventions: ED Discharge Assessment Last Done: 07/15/23 16:46 Discharge Date/Time: 07/15/23 16:48
[2023-07-15 12:30] LABS: Anion Gap 11 (12-20); Blood Urea Nitrogen 16 mg/dL (9-16); Calcium 9.5 mg/dL (8.4-10.2); Carbon Dioxide 27 mmol/L (22-29); Chloride 109 mmol/L (96-108); Creatinine Clr Calc Pharmacy 53.9; Estimated Glomerular Filt Rate 50; Glucose Random 85 mg/dL (60-115); Potassium 4.3 mmol/L (3.3-5.1); Sodium 143 mmol/L (135-145)
[2023-07-15 12:40] LABS: Troponin-I High Sensitivity < 2.7 ng/L (<3.5-17.0)
[2023-07-15 13:26] VITALS: PULSE 88; RESP 18; O2SAT 96
[2023-07-15] MEDS: Cyclobenzaprine HCl 5 MG TABLET PO (13:36)
[2023-07-15] MEDS: Lidocaine 4 % Patch ADH..PATCH 1 PATCH TRANSDERMA (13:37)
[2023-07-15] MEDS: Magnesium Sulfate/H2O 2 GM/50 ML PIGGYBACK IV (13:42)
[2023-07-15 15:07] VITALS: PULSE 96; RESP 18; O2SAT 95
[2023-07-15 16:45] VITALS: BP 130/61; PULSE 101; RESP 14; TEMP 36.6; O2SAT 95
== END 2023-07-15 16:48 | disposition home or self-care (01) ==
PROVIDERS: Physician Assistant; Emergency Provider Emergency Medicine; PCP Pediatrics
DX: J45.901 Unspecified asthma with (acute) exacerbation (principal); R06.00 Dyspnea, unspecified; Z79.899 Other long term (current) drug therapy
CPT/HCPCS: 36415; 71045; 80048; 84484; 85025; 93005; 94640; 96365; 96375; 99285; J2930; J3475

== ENCOUNTER 2023-09-30 15:51 | Emergency (ER) | payer OTHER, SELFPAY ==
--- NOTE | ~2023-09-30 | XR_ITS ---
EXAMINATION: XR CHEST CLINICAL INFORMATION: Cough COMPARISON: 07/15/2023 TECHNIQUE: Frontal view of the chest was obtained. FINDINGS: No significant abnormality is noted involving the heart, lungs, mediastinum, bony thorax or soft tissues. Surgical clips are again evident in the left axilla. XR/XR chest 1V IMPRESSION: No acute disease.
--- NOTE | 2023-09-30 15:56 | ECG_ITS ---
Test Reason : DYSPNEA Blood Pressure : / mmHG Vent. Rate : 089 BPM Atrial Rate : 089 BPM P-R Int : 154 ms QRS Dur : 074 ms QT Int : 366 ms P-R-T Axes : 076 036 078 degrees QTc Int : 445 ms Normal sinus rhythm Normal ECG When compared with ECG of 15-JUL-2023 11:58, No significant change was found Referred By: Renetta Dias Electronically Signed By:TALIA JARAMILLO MD
[2023-09-30 15:59] VITALS: BP 130/81; PULSE 101; RESP 25; TEMP 36.7; O2SAT 93; BMI 31.6
[2023-09-30] MEDS: Albuterol Sulfate 5 MG, Albuterol/Iprat 2.5/0.5MG 3 ML 3 ML INHALE (16:07)
[2023-09-30 16:08] VITALS: PULSE 99; RESP 26; O2SAT 97
--- NOTE | 2023-09-30 16:10 | ED_ITS ---
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 She is not on steroids at this time. No fevers, no sputum production, no chills, no sick contacts. MD complaint: asthma attack , shortness of breath and wheezing Onset (ago): day(s) (4) Severity: moderate Context: other (?weather change) Associated symptoms: none Asthma History: childhood onset Treatments Prior to Arrival: inhaled bronchodilator Related Data Home Medications Medication Instructions Recorded Confirmed cetirizine 10 mg tablet 10 mg PO DAILY 07/30/20 11/23/22 cholecalciferol (vitamin D3) 50 50 mcg PO BID 07/30/20 11/23/22 mcg (2,000 unit) capsule citalopram 40 mg tablet 40 mg PO DAILY 07/30/20 11/23/22 clonazepam 0.5 mg tablet 0.5 mg PO DAILY PRN anxiety 07/30/20 11/23/22 diphenhydramine HCl 25 mg tablet 25 mg PO BEDTIME PRN allergy 07/30/20 11/23/22 (Benadryl Allergy) levothyroxine 100 mcg tablet 100 mcg PO DAILY 07/30/20 11/23/22 umeclidinium 62.5 mcg/actuation 62.5 inh inhalation BID 07/30/20 11/23/22 blister powder for inhalation (Incruse Ellipta) acetaminophen 650 mg 650 mg PO Q8H PRN pain 10/07/20 11/23/22 tablet,extended release budesonide 0.5 mg/2 mL suspension 0.5 mg inhalation .q 6 h 10/07/20 11/23/22 for nebulization fluticasone propionate 50 1 spray intranasal BID PRN Nasal 07/01/21 11/23/22 mcg/actuation nasal Congestion spray,suspension docusate sodium 100 mg capsule 200 mg PO BEDTIME 11/23/22 11/23/22 (Colace) Previous Rx's Medication Instructions Recorded albuterol sulfate 90 mcg/actuation 2 puff inhalation Q4-6H PRN 08/14/20 aerosol inhaler shortness of breath or wheezing #18 grams meclizine 25 mg tablet 25 mg PO TID PRN dizziness #20 tabs 10/16/21 prednisone 5 mg tablet 5 mg PO BID COPD/asthma 30 days 04/15/22 #60 tabs ipratropium 0.5 mg-albuterol 3 mg 3 ml inhalation QID severe 05/05/22 (2.5 mg base)/3 mL nebulization copd/asthma 30 days #360 mL soln prednisone 5 mg tablet 5 mg PO BID severe COPD 30 days 07/07/22 #60 tabs hydrocortisone 2.5 % topical cream 1 appl NV BID-QID PRN hemorrhoids 07/09/22 with perineal applicator #30 grams (Procto-Med HC) methylcellulose (laxative) 500 mg 500 mg PO TID #90 tabs 07/09/22 tablet (Citrucel) prednisone 50 mg tablet 50 mg PO DAILY 4 days #4 tabs 10/02/22 loperamide 2 mg capsule (Imodium 2 mg PO Q6H PRN loose stool #30 01/25/23 A-D) caps prednisone 20 mg tablet 40 mg (2 x 20 mg) PO DAILY 5 days 02/03/23 #10 tabs metoclopramide HCl 10 mg tablet 10 mg PO Q6H PRN nausea and 04/19/23 (Reglan) vomiting #14 tabs albuterol sulfate 90 mcg/actuation 2 puff inhalation Q4-6H PRN 07/15/23 aerosol inhaler shortness of breath or wheezing #6.7 grams prednisone 20 mg tablet 40 mg (2 x 20 mg) PO DAILY 5 days 07/15/23 #10 tabs pantoprazole 40 mg tablet,delayed 40 mg PO DAILY 60 days #60 tabs 09/02/23 release azithromycin 250 mg tablet See Rx Instructions PO .COMPLEX #6 09/30/23 tabs prednisone 20 mg tablet 40 mg (2 x 20 mg) PO DAILY 5 days 09/30/23 #10 tabs Allergies Allergy/AdvReac Type Severity Reaction Status Date / Time animal dander Allergy Mild SHORTNESS Verified 07/15/23 10:02 OF BREATH ciprofloxacin [From Cipro] Allergy Mild RASH Verified 07/15/23 10:02 vancomycin [Vancomycin] Allergy Mild SHORTNESS Verified 07/15/23 10:02 OF BREATH amoxicillin [AMOXICILLIN] Allergy Unknown RASH Verified 07/15/23 10:02 Penicillins [PENICILLINS] Allergy Unknown RASH Verified 07/15/23 10:02 Review of Systems 2 Review of Systems: Constitutional : No Fever, No Chills ENT/Mouth : No Hoarseness, No sore throat, No Rhinorrhea Eyes: No Redness, No Discharge, No Vision Changes Cardiovascular : No Chest Pain, positive SOB, positive Dyspnea on Exertion, No Edema Respiratory : positive Cough, No Sputum, positive Wheezing, Gastrointestinal : No Nausea, No Vomiting, No Diarrhea, No abdominal Pain Genitourinary : No Dysuria, No Hematuria Musculoskeletal : No joint pain, No Myalgias Skin : No rash Neuro : No Weakness, No Numbness, No Headache Psych : No anxiety, depression Heme/Lymph: No Bruising, No Bleeding Endocrine : No Polyuria, No Polydipsia All other systems reviewed and are negative [facility] Past Medical History Source: old records reviewed Medical History Asthma-COPD overlap syndrome Tubular adenoma Diverticulosis of colon Tubular adenoma COPD (chronic obstructive pulmonary disease) Acute anxiety COPD exacerbation Allergic rhinitis Hypothyroid Asthma Asthma dependent on inhaled steroids Depression Anxiety Irritable bowel Acid reflux Diverticulosis large intestine w/o perforation or abscess w/o bleeding Surgical History H/O esophagogastroduodenoscopy (~12/2018) History of colonoscopy with polypectomy (~12/2018) History of mandibular surgery Hx of cholecystectomy Hx of tubal ligation Family History Family History Maternal Aunt Pancreatic cancer Maternal Grandmother Diabetes Stroke Maternal Grandfather Diabetes Mother COPD (chronic obstructive pulmonary disease) Father Respiratory failure Social History Social History Household Members: Spouse Household Members Other:: Lives with an 11-year-old granddaughter Housing: House Are you a primary health care sanitary technician to a significant other at home: No Do you presently have visiting nurse or other home services: No Alcohol intake: never Patient Tobacco Use Status: Never used Tobacco Smoked in Last 30 Days: No Use of substances other than those prescribed or required for medical reasons: No Advance Directives: No Advance Directives Information Provided: No service: No Current occupational status: retired Physical Exam 2 Vital Signs: Vital Signs: Last Vital Signs Temp 98.4 F 09/30/23 20:13 Pulse 94 09/30/23 20:13 Resp 20 09/30/23 20:13 BP 124/66 09/30/23 20:13 Pulse Ox 92 09/30/23 20:13 O2 Del Method Room Air 09/30/23 20:13 BMI result Body Mass Index 31.6 Appearance: Alert. Oriented X3. Mild acute distress. Eyes: Pupils equal, round and reactive to light. ENT: Pharynx normal. Neck: Normal inspection. Neck supple. CVS: Normal heart rate and rhythm. Pulses normal. Respiratory: Mild respiratory distress - tachypnea and retractions. Breath sounds diffuse insp and exp wheezing. Abdomen: Soft and non-tender. Skin: Skin warm and dry. Normal skin color. Normal skin turgor. Extremities: No lower extremity edema. No calf ttp Neuro: Oriented X 3. No motor deficit. No sensory deficit. Course Course Course Narrative: repeat neb ordered. Medications Administered Discontinued Medications Generic Name Dose Route Start Last Admin Trade Name Freq PRN Reason Stop Dose Admin Acetaminophen 975 mg 09/30/23 17:57 09/30/23 19:49 Acetaminophen 325 Mg Tablet PO 09/30/23 17:58 975 mg ONCE ONE Administration Albuterol Sulfate 2.5 mg/ 5 mg 09/30/23 17:41 09/30/23 17:44 Albuterol Sulfate 2.5 mg INHALE 09/30/23 17:42 5 mg ONCE ONE Administration Albuterol Sulfate 5 mg/ 0 mg 09/30/23 16:01 09/30/23 16:07 Albuterol/Ipratropium 3 ml INHALE 09/30/23 16:02 1 each ONCE ONE Administration Magnesium Sulfate 2 gm in 50 mls @ 150 mls/hr 09/30/23 16:17 09/30/23 18:01 Magnesium Sulfate/H2o IV 09/30/23 16:36 Infused ONCE ONE Infusion Methylprednisolone Sodium Succinate 60 mg 09/30/23 15:56 09/30/23 16:52 Methylprednisolone Sod Succ 125 Mg/2 Ml Vial IVPUSH 09/30/23 15:57 60 mg ONCE ONE Administration Medical Decision Making Medical Decision Making MDM Narrative: 68 yo female with PMH of asthma-COPD overlap syndrome, anxiety, depression, GERD here with c/o diffuse wheezing not responding to home treatments - no infectious symptoms. She blames the weather. At this time labs, IV steroids, IV magnesium CXR, viral panel. Differential Diagnosis Differential Diagnoses: The differential diagnosis associated with the presentation includes asthma exacerbation, viral illness Admission/Observation Consideration of admission/observation: Escalation of care including admission/observation considered feels much better, sats 93% no distress can be managed as outpatient at this time Lab Data MDM Lab Attestation statement: I reviewed the patient's lab results. 09/30/23 16:09 09/30/23 16:09 Labs: Lab Results 09/30/23 09/30/23 09/30/23 Range/Units 16:09 16:13 16:25 WBC 12.5 H (4.8-10.8) X10*3/uL RBC 4.56 (4.20-5.50) X10*6/uL Hgb 12.4 (12.0-16.0) g/dl Hct 39.1 (37.0-47.0) % MCV 85.7 (80.0-98.0) fL MCH 27.2 (27.0-33.0) pg MCHC 31.7 (31.0-35.0) g/dl RDW 15.4 (11.0-16.0) % Plt Count 228 (160-400) X10*3/uL MPV 11.1 (9.4-12.3) fL Immature Gran % (Auto) 0.3 (0.0-0.4) % Neut % (Auto) 67.3 (45-73) % Lymph % (Auto) 22.8 (20-40) % [place] % (Auto) 7.1 (2-11) % Eos % (Auto) 1.9 (0-4) % Baso % (Auto) 0.6 (0-2) % Lymph # (Auto) 2.8 (1.2-4.9) X10*3/uL [place] # (Auto) 0.9 (0.1-1.2) X10*3/uL Eos # (Auto) 0.2 (0.0-0.4) X10*3/uL Baso # (Auto) 0.1 (0.0-0.2) X10*3/uL Abs Immat Gran (auto) 0.04 H (0.00-0.03) X10*3/uL Absolute Neuts (auto) 8.4 H (2.0-8.3) x10*3/uL Absolute Nucleated RBC 0.000 (0.0-0.012) X10*3/uL Nucleated RBC % (auto) 0.0 (0.0-0.2) /100WBC VBG pH 7.43 (7.32-7.43) VBG pCO2 44 mmHg VBG pO2 46 mmHg VBG HCO3 29 H (22-26) mmol/L VBG O2 Saturation 75.0 % VBG Base Excess 4.6 mmol/L Sodium 140 (135-145) mmol/L Potassium 3.9 (3.3-5.1) mmol/L Chloride 105 (96-108) mmol/L Carbon Dioxide 29 (22-29) mmol/L Anion Gap 10 L (12-20) BUN 18 H (9-16) mg/dL Creatinine 1.16 (0.5-1.4) mg/dL Estim Creat Clear Calc 50.3 Estimated GFR 46 Random Glucose 90 (60-115) mg/dL Lactic Acid 1.0 (0.5-2.0) mmol/L Calcium 9.0 (8.4-10.2) mg/dL Magnesium 2.2 (1.6-2.6) mg/dL Total Bilirubin 0.3 (0.0-1.0) mg/dL Direct Bilirubin 0.1 (0.0-0.5) mg/dL AST 19 (5-31) U/L ALT 27 (0-31) U/L Alkaline Phosphatase 165 H (39-117) U/L Troponin I High Sens < 2.7 (<3.5-17.0) ng/L B-Natriuretic Peptide 19 (<100) pg/mL Total Protein 6.9 (6.5-8.0) g/dL Albumin 3.9 (3.5-5.0) g/dL Influenza Type A (PCR) NEGATIVE (Negative) Influenza Type B (PCR) NEGATIVE (Negative) RSV RNA Qual (PCR) NEGATIVE (Negative) SARS-CoV-2 RNA (RT-PCR) NEGATIVE (Negative) Independent Interpretation I performed an independent interpretation of an: EKG and Plain X-Ray (no pneumonia) Interpretation: Rate: 89 Rhythm: NSR [place]: normal Normal P waves. Normal ADELITA. Normal QRS complex. ST T wave : normal no JERRI qTC: normal prior studies: no acute ischemia The study has been interpreted contemporaneously by me. . Radiology Impression Discussion of test interpretation with radiology: I have reviewed the radiologist's reading. External Record Review External record reviewed: Inpatient record Critical Care Time Critical Care Time Critical Care Time: Yes Total Critical Care Time: 35 Attestation: repeat hour long nebs, O2 monitor, IV magnesium for resp status I attest to this time spent taking care of the patient Discharge Plan Discharge Clinical Impression: Asthma with exacerbation Qualifiers: Asthma severity: moderate Asthma persistence: persistent Qualified Code(s): J 45.41 - Moderate persistent asthma with (acute) exacerbation Patient Disposition: Home, Self-Care Instructions: Asthma (ED) Additional Instructions: return for worsening pain, difficulty breathing, no improvements or any other concerns. Prescriptions: New azithromycin 250 mg tablet See Rx Instructions .ROUTE .COMPLEX Qty: 6 0RF Rx Instructions: For 250 mg dose pack: take 500 mg today (day 1), then 250 mg for 4 days (days 2-5) prednisone 20 mg tablet 40 mg PO DAILY 5 Days Qty: 10 0RF No Action ipratropium-albuterol 0.5 mg-3 mg(2.5 mg base)/3 mL solution for nebulization 3 ml inhalation QID 30 Days Qty: 360 3RF prednisone 5 mg tablet 5 mg PO BID 30 Days Qty: 60 3RF pantoprazole 40 mg tablet,delayed release (DR/EC) 40 mg PO DAILY 60 Days Qty: 60 2RF albuterol sulfate 90 mcg/actuation HFA aerosol inhaler 2 puff inhalation Q4-6H PRN (Reason: shortness of breath or wheezing) Qty: 18 0RF docusate sodium [Colace] 100 mg capsule 200 mg PO BEDTIME meclizine 25 mg tablet 25 mg PO TID PRN (Reason: dizziness) Qty: 20 0RF prednisone 50 mg tablet 50 mg PO DAILY 4 Days Qty: 4 0RF prednisone 20 mg tablet 40 mg PO DAILY 5 Days Qty: 10 0RF metoclopramide HCl [Reglan] 10 mg tablet 10 mg PO Q6H PRN (Reason: nausea and vomiting) Qty: 14 0RF prednisone 20 mg tablet 40 mg PO DAILY 5 Days Qty: 10 0RF albuterol sulfate 90 mcg/actuation HFA aerosol inhaler 2 puff inhalation Q4-6H PRN (Reason: shortness of breath or wheezing) Qty: 6.7 0RF diphenhydramine HCl [Benadryl Allergy] 25 mg tablet 25 mg PO BEDTIME PRN (Reason: allergy) Incruse Ellipta 62.5 mcg/actuation blister with device 62.5 inh inhalation BID cholecalciferol (vitamin D3) 50 mcg (2,000 unit) capsule 50 mcg PO BID levothyroxine 100 mcg tablet 100 mcg PO DAILY cetirizine 10 mg tablet 10 mg PO DAILY citalopram 40 mg tablet 40 mg PO DAILY clonazepam 0.5 mg tablet 0.5 mg PO DAILY PRN (Reason: anxiety) fluticasone propionate 50 mcg/actuation spray,suspension 1 spray intranasal BID PRN (Reason: Nasal Congestion) budesonide 0.5 mg/2 mL suspension for nebulization 0.5 mg inhalation .q 6 h acetaminophen 650 mg tablet extended release 650 mg PO Q8H PRN (Reason: pain) prednisone 5 mg tablet 5 mg PO BID 30 Days Qty: 60 3RF hydrocortisone [Procto-Med HC] 2.5 % cream with perineal applicator 1 appl NV BID-QID PRN (Reason: hemorrhoids) Qty: 30 3RF Citrucel 500 mg tablet 500 mg PO TID Qty: 90 5RF loperamide [Imodium A-D] 2 mg capsule 2 mg PO Q6H PRN (Reason: loose stool) Qty: 30 0RF Rx Instructions: Take 2 cap after 1st loose stool- One caplet after each subsequent loose stools No more than 4 caps in a 24 hour. Interventions: ED Discharge Assessment Last Done: 09/30/23 20:16 Discharge Date/Time: 09/30/23 20:18
[2023-09-30 16:14] LABS: MANUAL DIFF FLAG NO
[2023-09-30 16:17] LABS: Basophils Absolute Auto 0.1 X10*3/uL (0.0-0.2); Basophils Percent Auto 0.6 % (0-2); Eosinophils Absolute Auto 0.2 X10*3/uL (0.0-0.4); Eosinophils Percent Auto 1.9 % (0-4); Hematocrit 39.1 % (37.0-47.0); Hemoglobin 12.4 g/dl (12.0-16.0); Imm Gran Abs Auto 0.04 X10*3/uL (0.00-0.03); Imm Gran Pct Auto 0.3 % (0.0-0.4); Lymphocytes Absolute Auto 2.8 X10*3/uL (1.2-4.9); Lymphocytes Percent Auto 22.8 % (20-40); Mean Corpuscular HGB Conc 31.7 g/dl (31.0-35.0); Mean Corpuscular Hemoglobin 27.2 pg (27.0-33.0); Mean Corpuscular Volume 85.7 fL (80.0-98.0); Mean Platelet Volume 11.1 fL (9.4-12.3); Monocytes Absolute Auto 0.9 X10*3/uL (0.1-1.2); Monocytes Percent Auto 7.1 % (2-11); Neutrophils Absolute Auto 8.4 x10*3/uL (2.0-8.3); Neutrophils Percent Auto 67.3 % (45-73); Platelet Count 228 X10*3/uL (160-400); Red Blood Count 4.56 X10*6/uL (4.20-5.50); Red Cell Distribution Width 15.4 % (11.0-16.0); White Blood Count 12.5 X10*3/uL (4.8-10.8)
[2023-09-30 16:34] LABS: Venous Blood Gas Refer to POC result
[2023-09-30 16:35] LABS: VBG Base Excess 4.6 mmol/L; VBG HCO3 29 mmol/L (22-26); VBG pCO2 44 mmHg; VBG pH 7.43 (7.32-7.43); VBG pO2 46 mmHg
[2023-09-30 16:36] LABS: Alanine Aminotransferase 27 U/L (0-31); Albumin Level 3.9 g/dL (3.5-5.0); Alkaline Phosphatase 165 U/L (39-117); Anion Gap 10 (12-20); Aspartate Amino Transferase 19 U/L (5-31); Bilirubin Direct 0.1 mg/dL (0.0-0.5); Bilirubin Total 0.3 mg/dL (0.0-1.0); Blood Urea Nitrogen 18 mg/dL (9-16); Carbon Dioxide 29 mmol/L (22-29); Chloride 105 mmol/L (96-108); Creatinine Clr Calc Pharmacy 50.3; Estimated Glomerular Filt Rate 46; Glucose Random 90 mg/dL (60-115); Magnesium 2.2 mg/dL (1.6-2.6); Potassium 3.9 mmol/L (3.3-5.1); Sodium 140 mmol/L (135-145); Total Protein 6.9 g/dL (6.5-8.0)
[2023-09-30 16:41] LABS: B Type Natriuretic Peptide 19 pg/mL (<100)
[2023-09-30 16:44] LABS: Troponin-I High Sensitivity < 2.7 ng/L (<3.5-17.0)
[2023-09-30] MEDS: methylPREDNISolone Sod Succ 125 MG/2 ML VIAL 60 MG IVPUSH (16:52)
[2023-09-30] MEDS: Magnesium Sulfate/H2O 2 GM/50 ML PIGGYBACK IV (16:52)
[2023-09-30 17:44] VITALS: PULSE 84; RESP 17; O2SAT 96
[2023-09-30] MEDS: Albuterol Sulfate 2.5 MG, Albuterol Sulfate (0.083%) 2.5 MG 5 MG INHALE (17:44)
[2023-09-30 17:45] LABS: Influenza A PCR NEGATIVE (Negative); Influenza B PCR NEGATIVE (Negative); Resp Syncy Virus RNA Qual PCR NEGATIVE (Negative); SARS COV2 PCR INHOUSE NEGATIVE (Negative)
[2023-09-30] MEDS: Acetaminophen 325 MG TABLET 975 MG PO (19:49)
--- NOTE | 2023-09-30 19:49 | PC.NURSE ---
this rn assumed care of pt. pt reports 8 upper back pain. pt medicated per dec. at bedside discussing pt care delay in medication administration due to previous shift.
[2023-09-30 20:13] VITALS: BP 124/66; PULSE 94; RESP 20; TEMP 36.9; O2SAT 92
== END 2023-09-30 20:18 | disposition home or self-care (01) ==
PROVIDERS: Emergency Provider Emergency Medicine; PCP Pediatrics
DX: J45.41 Moderate persistent asthma with (acute) exacerbation (principal); R06.02 Shortness of breath; R05.9 Cough, unspecified; Z20.822 Contact with and (suspected) exposure to COVID-19; Z20.828 Contact with and (suspected) exposure to other viral communicable diseases; Z79.899 Other long term (current) drug therapy
CPT/HCPCS: 0241U; 36415; 71045; 80048; 80076; 82803; 83605; 83735; 83880; 84484; 85025; 87040; 93005; 94640; 96365; 96375; 99284; 99285; J2930; J3475

== ENCOUNTER → 2023-09-30 15:56 | Outpatient (BNV) | payer OTHER, SELFPAY | PROVIDERS: Emergency Provider Emergency Medicine; PCP Pediatrics; Visit Provider Internal Medicine Cardiovascular Disease | DX: R06.09 Other forms of dyspnea (principal) | CPT/HCPCS: 93010 ==

== ENCOUNTER 2023-11-15 13:45 | Outpatient (AMB) | payer OTHER, SELFPAY ==
--- NOTE | 2023-11-15 14:11 | MHC.PC.OV ---
Vital Signs 11/15/23 14:14 Height 5 ft 5 in Weight 192 lb 2 oz BMI 32.0 BP 110/60 Blood Pressure Location Lt brachial Position Sitting Pulse 62 Pulse Source Pulse Oximeter Pulse Oximetry (%) 98 Oxygen Delivery Method Room Air Intake Visit Reasons: est care/ asthma Intake Note: Patient is a new patient here to establish care for Thyroid, Asthma, Sciatica, Hx of Breast Cancer, Chronic pain, COPD, . Transferring care from Dr Sosa De La Cruz ([facility]). Medical records have not been requested and have not received. Requesting for referral to iron handler Schedule Analyst Required: No Web Operations Specialist: Present Accompanied by: Spouse Allergies animal dander Allergy (Mild, Verified 11/15/23 14:14) SHORTNESS OF BREATH ciprofloxacin [From Cipro] Allergy (Mild, Verified 11/15/23 14:14) RASH vancomycin [Vancomycin] Allergy (Mild, Verified 11/15/23 14:14) SHORTNESS OF BREATH amoxicillin [AMOXICILLIN] Allergy (Unknown, Verified 11/15/23 14:14) RASH Penicillins [PENICILLINS] Allergy (Unknown, Verified 11/15/23 14:14) RASH Tobacco use date assessed: 11/15/23 Fall risk assessment: No Falls in past year Last assessed Fall Risk: 11/15/23 Dental Screening Dental Screen Date: 11/15/23 Did you have a dental visit in the last 12 months?: No Did you have a dental problem in the last 6 months where you did not have access to dental care?: No Was dental information given to patient?: No HPI est care/ asthma HPI Details 68-year-old female presents to the office to establish her care here. She is transferring from [facility]. Patient gives history of asthma and sciatica. She has not been taking any inhalers for the past 6 months. non smoker. She feels her asthma symptoms are acting up. Complains of wheezing and occ cough. Also her sciatica sx include low back pain. Currently on no treatment for the same. [facility] Medical History (Updated 11/15/23 @ 17:10 by Fahad Gutierrez MD) Low back pain Asthma-COPD overlap syndrome Tubular adenoma Diverticulosis of colon Tubular adenoma COPD (chronic obstructive pulmonary disease) Acute anxiety COPD exacerbation Allergic rhinitis Hypothyroid Asthma Asthma dependent on inhaled steroids Depression Anxiety Irritable bowel Acid reflux Diverticulosis large intestine w/o perforation or abscess w/o bleeding Surgical History H/O esophagogastroduodenoscopy (~12/2018) History of colonoscopy with polypectomy (~12/2018) History of mandibular surgery Hx of cholecystectomy Hx of tubal ligation Family History (Updated 11/15/23 @ 14:12 by ROMAN Su) Maternal Aunt Pancreatic cancer Maternal Grandmother Diabetes Stroke Maternal Grandfather Diabetes Mother COPD (chronic obstructive pulmonary disease) Father Respiratory failure Social History Household Members: Spouse Household Members Other:: Lives with an 11-year-old granddaughter Housing: House Are you a primary patient care provider to a significant other at home: No Do you presently have visiting nurse or other home services: No Alcohol intake: never Patient Tobacco Use Status: Never used Tobacco e-Cigarette/Vaping Use: Never Used Second Hand Smoke Exposure: No service: No Current occupational status: retired Cognitive needs: No Hearing needs: No Vision needs: Yes (glasses) Questionnaire PHQ-9 Over the last 2 weeks, how often have you been bothered by any of the following problems? 1. Little interest or pleasure in doing things: not at all 2. Feeling down, depressed, or hopeless: several days (currently on medication) 3. Trouble falling or staying asleep, or sleeping too much: not at all 4. Feeling tired or having little energy: not at all 5. Poor appetite or overeating: not at all 6. Feeling bad about yourself - or that you are a failure or have let yourself or your family down: not at all 7. Trouble concentrating on things, such as reading the newspaper or watching television: not at all 8. Moving or speaking so slowly that other people could have noticed. Or the opposite - being so fidgety or restless that you have been moving around a lot more than usual: not at all 9. Thoughts that you would be better off or of hurting yourself in some way: not at all Total score: 1 Depression Screening Interpretation: Negative Depression Screening Done: Yes Source: Developed by Drs. Jacob L. RonMaribel andres Kurt Kroenke and colleagues, with an educational adrian from [employer]. Thrive Questionnaire Date Thrive assessed: 11/15/23 I am a: Patient What is your living situation today?: I have a steady place to live Within the past 12 months, did the food you bought not last and you didn't have the money to get more?: Never true Within the past 12 months, did you worry whether your food would run out before you got money to buy more?: Never true Do you have trouble paying for medicines?: No Do you have trouble getting transportation to medical appointments?: No Do you have trouble paying your heating and electricity bill?: No Do you have trouble taking care of your child, family member or friend?: No Do you have trouble with day-to-day activities such as bathing, preparing meals, shopping, managing finances, etc.?: No Are you currently unemployed and looking for a job?: No Are you interested in more education?: No AUDIT C Alcohol Use Questionnaire (AUDIT-C) 1. How often do you have a drink containing alcohol?: Never Total Score: 0 LIAM-7 AMB Questionnaire LIAM-7 Date LIAM - 7 assessed: 11/15/23 Feeling nervous, anxious, or on edge: 0 = Not at all Not being able to stop or control worryin = Not at all Worrying too much about different things: 0 = Not at all Trouble relaxin = Not at all Being so restless that it is hard to sit still: 0 = Not at all Becoming easily annoyed or irritable: 0 = Not at all Feeling afraid as if something awful might happen: 0 = Not at all Total LIAM-7 score (0-4 normal; 5-9 mild; 10-14 moderate; 15-21 severe): 0 Source: Developed by Maribel Kendrick Kurt Kroenke and colleagues, with an educational adrian from [employer]. Physical exam (Primary Care) Vital Signs: Last Vital Signs Pulse 62 11/15/23 14:14 BP 110/60 11/15/23 14:14 Pulse Ox 98 11/15/23 14:14 Oxygen Delivery Method Room Air 11/15/23 14:14 BMI result Body Mass Index 32.0 Tobacco/Smoking Status: Tobacco use Status Tobacco use date assessed 11/15/23 11/15/23 14:16 Patient Tobacco Use Status Never used Tobacco 11/15/23 14:16 e-Cigarette/Vaping Use Never Used 11/15/23 14:16 PHQ-9: PHQ-9 Score PHQ-9: Total score 1 11/15/23 15:39 Depression Screening Interpretation: Negative Thrive Assessment: Date of Thrive Assessment Date Thrive assessed 11/15/23 11/15/23 14:16 Const General: cooperative and healthy appearing Nutritional Appearance: well nourished Orientation/consciousness: patient oriented x3 Limitations: no limitations HENMT Head: Yes normal to inspection Eyes General: appearance normal, both eyes and all related structures Neck Neck: Yes normal visual inspection Chest Chest palpation & inspection: normal palpation of entire chest wall Resp Effort & Inspection: normal respiratory effort Neuro General: patient oriented x3 Assessment and Plan Assessment & Plan (1) COPD (chronic obstructive pulmonary disease): Comment: Chronic , Stable , JEAN-BAPTISTE. is part of this problem . R/x Cont,. to use : Incruse ellipta, 1 inh daily Budesonide 0.5 mg TID Albuterol HFA 2 puffs Q 6 hours p.r.n.. Does not have to use Advair. Because of her recurrent need to go on prednisone, I will keep her on prednisone 5 mg a day for a few weeks, Until we get pulmonary function test done on her. Do Deep breathing exercises TID . PULMONARY FUNCTION TEST IS ORDERED Code(s): J44.9 - Chronic obstructive pulmonary disease, unspecified Plan: Albuterol and steroid inhaler called in. Blood work has been ordered. Pulmonary consult per patient's request. (2) Low back pain: Code(s): M54.50 - Low back pain, unspecified Plan: Physical therapy ordered. Orders: Referrals Pulmonary Medicine Referral J44.9 - Chronic obstructive pulmonary disease, unspecified Medications: New umeclidinium 62.5 mcg/actuation (Incruse Ellipta) 62.5 inhalations inhalation BID 30 ea 0RF Refilled albuterol sulfate 90 mcg/actuation 2 puffs inhalation Q4-6H PRN 6.7 grams 0RF shortness of breath or wheezing Coding Level of Care Code New Pt Level 4 (37251) Diagnoses COPD (chronic obstructive pulmonary disease) J44.9 Low back pain M54.50
[2023-11-15 14:14] VITALS: BP 110/60; PULSE 62; O2SAT 98; BMI 32.0
== END 2023-11-15 15:31 | disposition home or self-care (01) ==
PROVIDERS: PCP Internal Medicine; Visit Provider Internal Medicine
DX: J44.9 Chronic obstructive pulmonary disease, unspecified (principal); M54.50 Low back pain, unspecified
CPT/HCPCS: 99204

== ENCOUNTER 2023-11-23 10:37 | Outpatient (REF) | payer OTHER, SELFPAY ==
[2023-11-23 10:52] LABS: MANUAL DIFF FLAG NO
[2023-11-23 10:59] LABS: Basophils Absolute Auto 0.1 X10*3/uL (0.0-0.2); Basophils Percent Auto 0.9 % (0-2); Eosinophils Absolute Auto 0.3 X10*3/uL (0.0-0.4); Eosinophils Percent Auto 2.5 % (0-4); Hematocrit 39.4 % (37.0-47.0); Hemoglobin 12.2 g/dl (12.0-16.0); Imm Gran Abs Auto 0.04 X10*3/uL (0.00-0.03); Imm Gran Pct Auto 0.4 % (0.0-0.4); Lymphocytes Absolute Auto 2.6 X10*3/uL (1.2-4.9); Lymphocytes Percent Auto 26.4 % (20-40); Mean Corpuscular Hemoglobin 27.1 pg (27.0-33.0); Mean Corpuscular Volume 87.6 fL (80.0-98.0); Mean Platelet Volume 10.5 fL (9.4-12.3); Monocytes Absolute Auto 0.7 X10*3/uL (0.1-1.2); Monocytes Percent Auto 7.4 % (2-11); Neutrophils Absolute Auto 6.2 x10*3/uL (2.0-8.3); Neutrophils Percent Auto 62.4 % (45-73); Platelet Count 204 X10*3/uL (160-400); Red Cell Distribution Width 14.8 % (11.0-16.0); White Blood Count 9.9 X10*3/uL (4.8-10.8)
[2023-11-23 11:12] LABS: Alanine Aminotransferase 15 U/L (0-31); Albumin Level 3.7 g/dL (3.5-5.0); Alkaline Phosphatase 156 U/L (39-117); Anion Gap 9 (12-20); Aspartate Amino Transferase 14 U/L (5-31); Bilirubin Total 0.2 mg/dL (0.0-1.0); Blood Urea Nitrogen 24 mg/dL (9-16); Calcium 9.1 mg/dL (8.4-10.2); Carbon Dioxide 30 mmol/L (22-29); Chloride 110 mmol/L (96-108); Estimated Glomerular Filt Rate 39; Glucose Random 95 mg/dL (60-115); Potassium 4.3 mmol/L (3.3-5.1); Sodium 145 mmol/L (135-145); Total Protein 6.8 g/dL (6.5-8.0)
== END 2023-11-23 10:38 | disposition home or self-care (01) ==
LOC: HO.LAB 10:37
PROVIDERS: Visit Provider Internal Medicine Medical Oncology
DX: D05.12 Intraductal carcinoma in situ of left breast (principal)
CPT/HCPCS: 36415; 80053; 85025

== ENCOUNTER 2023-11-26 09:50 | Outpatient (REF) | payer MEDICARE, SELFPAY ==
[2023-11-26 11:07] LABS: Hematocrit 38.6 % (37.0-47.0); Hemoglobin 12.2 g/dl (12.0-16.0); Mean Corpuscular HGB Conc 31.6 g/dl (31.0-35.0); Mean Corpuscular Hemoglobin 27.4 pg (27.0-33.0); Mean Corpuscular Volume 86.7 fL (80.0-98.0); Mean Platelet Volume 10.8 fL (9.4-12.3); Platelet Count 233 X10*3/uL (160-400); Red Blood Count 4.45 X10*6/uL (4.20-5.50); Red Cell Distribution Width 14.2 % (11.0-16.0); White Blood Count 8.7 X10*3/uL (4.8-10.8)
[2023-11-26 11:22] LABS: Alanine Aminotransferase 11 U/L (0-31); Albumin Level 3.6 g/dL (3.5-5.0); Alkaline Phosphatase 155 U/L (39-117); Anion Gap 9 (12-20); Aspartate Amino Transferase 14 U/L (5-31); Bilirubin Direct 0.2 mg/dL (0.0-0.5); Bilirubin Total 0.5 mg/dL (0.0-1.0); Blood Urea Nitrogen 16 mg/dL (9-16); Carbon Dioxide 30 mmol/L (22-29); Chloride 106 mmol/L (96-108); Cholesterol 186 mg/dL (<200); Estimated Glomerular Filt Rate 44; Glucose Random 92 mg/dL (60-115); HDL Cholesterol 41 mg/dL (>40); LDL Cholesterol Calculated 113 mg/dL (<100); Sodium 141 mmol/L (135-145); Total Protein 6.6 g/dL (6.5-8.0); Triglycerides 163 mg/dL (<150)
[2023-11-26 11:40] LABS: Thyroid Stimulating Hormone 1.33 uIU/mL (0.32-4.0)
== END 2023-11-26 09:51 | disposition home or self-care (01) ==
LOC: HO.10HDL 09:50
PROVIDERS: Visit Provider Internal Medicine
DX: J44.9 Chronic obstructive pulmonary disease, unspecified (principal); M25.50 Pain in unspecified joint
CPT/HCPCS: 36415; 80048; 80061; 80076; 84443; 85027

== ENCOUNTER 2023-12-07 08:14 | Emergency (ER) | payer OTHER, MEDICARE, SELFPAY ==
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
[2023-12-07 08:27] VITALS: BP 142/56; PULSE 82; RESP 18; TEMP 37; O2SAT 96; BMI 34.0
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
[2023-12-07] MEDS: Ketorolac Tromethamine 30 MG/ML VIAL IM (10:56)
[2023-12-07] MEDS: Lidocaine 4 % Patch ADH..PATCH 1 PATCH TRANSDERMA (10:57)
== END 2023-12-07 11:32 | disposition home or self-care (01) ==
PROVIDERS: Emergency Provider Emergency Medicine; PCP Internal Medicine
DX: S83.92XA Sprain of unspecified site of left knee, initial encounter (principal); V43.62XA Car passenger injured in collision with other type car in traffic accident, initial encounter; Y93.9 Activity, unspecified; Y92.410 Unspecified street and highway as the place of occurrence of the external cause; Y99.9 Unspecified external cause status; M54.50 Low back pain, unspecified; M25.562 Pain in left knee; J44.9 Chronic obstructive pulmonary disease, unspecified; E03.9 Hypothyroidism, unspecified; M40.46 Postural lordosis, lumbar region
CPT/HCPCS: 72100; 73560; 96372; 99283; 99284; J1885

== ENCOUNTER 2023-12-21 08:43 | Outpatient (REF) | payer MEDICARE, SELFPAY ==
--- NOTE | ~2023-12-21 | MM_ITS ---
EXAMINATION: MM SCREENING DIGITAL BREAST TOMOSYNTHESIS, BILATERAL CLINICAL INFORMATION: Screening. Asymptomatic. The patient is status post left breast surgery for DCIS in 2005. COMPARISON: Mammography: This study is compared with prior exams dating back to 2019. TECHNIQUE: Digital breast tomosynthesis is performed in both the craniocaudal and mediolateral oblique views along with computer-aided detection (CAD). Synthesized 2D images are generated from the tomosynthesis. FINDINGS: There are scattered areas of fibroglandular density (ACR BI-RADS breast composition Category b). There are no significant masses, abnormal calcifications, or other abnormalities. There are postsurgical changes in the superior aspect of the left breast from prior cancer surgery. MM/MM tomosynthesis screening BI IMPRESSION: No mammographic evidence of malignancy. ASSESSMENT: BI-RADS BI-RADS 2 - Benign Findings RECOMMENDATION: Routine annual mammography screening. 1 year F/U This examination should not preclude the clinical evaluation of a suspicious palpable abnormality. This patient's information was entered into a reminder system with a target due date for their next mammogram.
--- NOTE | ~2023-12-21 | MM_ITS ---
EXAMINATION: BONE DENSITOMETRY CLINICAL INDICATION: Osteopenia. COMPARISON: Previous BD dated 06/17/2021 and baseline BD dated 02/01/2009. TECHNIQUE: Using a [employer] DXA System (software version: 13.1) manufactured by [employer], dual-energy x-ray absorptiometry was performed of the lumbar spine and left hip. The images are of good technical quality. Summary results are attached. FINDINGS: LEFT FEMUR, NECK: Current: BMD 0.818 g/cm2, Z-score -0.5, T-score -1.6, osteopenia. Prior: BMD 0.822 g/cm2. Baseline: BMD 0.924 g/cm2. LEFT FEMUR, TOTAL: Current: BMD 0.787 g/cm2, Z-score -0.9, T-score -1.8, osteopenia, 6.3% decrease from previous, 14.5% decrease from baseline (<5% change is not significant). Prior: BMD 0.840 g/cm2. Baseline: BMD 0.920 g/cm2. AP SPINE L1-L4: Current: BMD 0.933 g/cm2, Z-score -1.2, T-score -2.1, osteopenia, 6.1% decrease from previous, 14.9% decrease from baseline (<5% change is not significant). Prior: BMD 0.994 g/cm2. Baseline: BMD 1.096 g/cm2. IDENTIFIED RISK FACTORS: Menopause, height loss, glucocorticoids (chronic), family history (parent hip fracture). HISTORY OF FRACTURE: None listed. MEDICATIONS: Calcium, vitamin D. MM/XR DEXA axial skeleton IMPRESSION: 1. DIAGNOSIS: Osteopenia based on the lowest T-score value of -2.1 in the lumbar spine applying World Health Organization criteria. 2. 10-YEAR FRACTURE RISK PREDICTION, FRAX: Major osteoporotic fracture (clinical spine, forearm, hip or shoulder) 14.0%. Hip fracture 2.3%. 3. Treatment Recommendations: NOF guidelines recommend consideration for treatment in postmenopausal women and men age 50 and older presenting with the following: -A hip or vertebral (clinical or morphometric) fracture. -T-score less than or equal to -2.5 at the femoral neck or spine after appropriate evaluation to exclude secondary causes. -Low bone mass at the hip or spine and a 10-year fracture probability by FRAX of greater than or equal to 3% for hip fracture or greater than or equal to 20% for major osteoporotic fracture based on the [place] adapted WHO algorithm. 4. Other Recommendations: All treatment decisions require clinical judgment and consideration of individual patient factors, including patient preferences, comorbidities, previous drug use, risk factors not captured in the FRAX model (e.g. frailty, falls, vitamin D deficiency, increased bone turnover, interval significant decline in bone density) and possible under or overestimation of fracture risk by FRAX. Additional medical evaluation for secondary cause of low bone mineral density may be appropriate. FUTURE SCAN RECOMMENDATION: People with diagnosed cases of osteoporosis or at high risk for fracture should have regular bone mineral density tests. For patients eligible for Medicare, routine testing is allowed once every 2 years. The testing frequency can be increased to one year for patients who have rapidly progressing disease, those who are receiving or discontinuing medical therapy to restore bone mass, or have additional risk factors.
== END 2023-12-21 08:44 | disposition home or self-care (01) ==
LOC: HO.MAMMO 08:43
PROVIDERS: PCP Internal Medicine; Visit Provider Internal Medicine Medical Oncology
DX: Z12.31 Encounter for screening mammogram for malignant neoplasm of breast (principal); Z13.820 Encounter for screening for osteoporosis; M85.80 Other specified disorders of bone density and structure, unspecified site; Z78.0 Asymptomatic menopausal state
CPT/HCPCS: 77063; 77067; 77080

== ENCOUNTER → 2023-12-21 08:45 | Outpatient (BNV) | payer MEDICARE, SELFPAY | PROVIDERS: PCP Internal Medicine; Visit Provider Radiology Diagnostic Radiology | DX: Z12.31 Encounter for screening mammogram for malignant neoplasm of breast (principal) | CPT/HCPCS: 77063; 77067 ==

== ENCOUNTER 2024-01-03 14:07 | Outpatient (AMB) | payer MEDICARE, SELFPAY ==
--- NOTE | 2024-01-03 14:14 | A.OFFVIS_ITS ---
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 The patient is a 60 year woman with a known history of asthma. Apparently the patient has had lifelong asthma. The last time that she did undergo pulmonary function studies was back in 2021 and he actually had more of a fixed obstructive defect consistent more severe COPD. Therefore she likely has developed asthma COPD overlap syndrome in view of her significant disease. The patient has been on multiple respiratory inhalers with only partial improvement of his symptoms. She is getting dyspnea even with minimal activity. Moderate severity. Does not feel like she is responding well to her current respiratory therapy and would like to further optimize her respiratory regimen. At this point is very reasonable to do so. We did talk about biologic therapies but I explained to her that is mainly for allergic asthma. We did review her blood work that she has had in the past and no significant evidence of any eosinophilia or elevations in the IgE. Will go ahead and repeat those specially to see if she is a candidate now. [facility] Medical History (Updated 01/03/24 @ 22:20 by Wolf Rosario MD) Allergies Low back pain Asthma-COPD overlap syndrome Tubular adenoma Diverticulosis of colon Tubular adenoma COPD (chronic obstructive pulmonary disease) Acute anxiety COPD exacerbation Allergic rhinitis Hypothyroid Asthma Asthma dependent on inhaled steroids Depression Anxiety Irritable bowel Acid reflux Diverticulosis large intestine w/o perforation or abscess w/o bleeding Surgical History H/O esophagogastroduodenoscopy (~12/2018) History of colonoscopy with polypectomy (~12/2018) History of mandibular surgery Hx of cholecystectomy Hx of tubal ligation Family History Maternal Aunt Pancreatic cancer Maternal Grandmother Diabetes Stroke Maternal Grandfather Diabetes Mother COPD (chronic obstructive pulmonary disease) Father Respiratory failure Social History Household Members: Spouse Household Members Other:: Lives with an 11-year-old granddaughter Housing: House Are you a primary date night caregiver to a significant other at home: No Do you presently have visiting nurse or other home services: No Alcohol intake: never Patient Tobacco Use Status: Never used Tobacco e-Cigarette/Vaping Use: Never Used Second Hand Smoke Exposure: No service: No Current occupational status: retired Cognitive needs: No Hearing needs: No Vision needs: Yes (glasses) Review of Systems Const Denies fever(s) Eyes Reports no additional complaints ENT Reports nasal congestion (Mild intermittent) Card Denies chest pain, Denies irregular heart rhythm, Denies leg edema and Reports dyspnea on exertion Resp Reports as per HPI, Reports cough, Reports dyspnea on exertion and Reports wheezing GI Reports heartburn (Controlled with med) Reports no additional complaints Skin/Breast Reports system reviewed and no additional complaints, except as documented Neuro Reports no additional complaints Psych Reports anxiety and Reports depression Aller/Immun Reports wheezing Physical Exam Vital Signs: Last Vital Signs Pulse 83 01/03/24 14:15 BP 128/60 01/03/24 14:15 Pulse Ox 96 01/03/24 14:15 Oxygen Delivery Method Room Air 01/03/24 14:15 BMI result Body Mass Index 32.3 Const General: comfortable HEENT Head: Yes normocephalic Neck Neck: Yes supple Chest Chest palpation & inspection: normal inspection of the chest Resp Effort & Inspection: normal respiratory effort and prolonged expiratory phase Auscultation: wheezes and diminished lung sounds Cardio Heart sounds: S1 normal heart sound present and S2 normal heart sound present GI Palpation (GI): Soft to palpation Skin Rashes: rashes noted (eczema) Immunizations pneumoc 20-ankit conj-dip cr(PF) 0.5 mL IM syringe Performing Provider: Wolf Rosario MD Performing Location: [facility] Administered by: Lory Machado LPN on 01/03/24 14:52 Dose Route Admin Location Dispensed Lot Number Expiration Date NDC Zinc Plate Cutter 0.5 mL IM Right Deltoid 0.5 mL [id number] 12/29/24 [employer] VIS Given Date VIS Provided VIS Publication Date 01/03/24 Single Vaccine 21 Eligibility Eligibility Date Funding Source Not VF Eligible 01/03/24 Private Assessment & Plan Assessment & Plan (1) Asthma: Code(s): J45.909 - Unspecified asthma, uncomplicated Qualifiers: Asthma severity: severe Asthma persistence: persistent Asthma complication type: uncomplicated Qualified Code(s): J45.50 - Severe persistent asthma, uncomplicated (2) Asthma-COPD overlap syndrome: Comment: Code(s): J44.9 - Chronic obstructive pulmonary disease, unspecified (3) Allergies: Code(s): T78.40XA - Allergy, unspecified, initial encounter Qualifiers: Encounter type: initial encounter Qualified Code(s): T78.40XA - Allergy, unspecified, initial encounter (4) Allergic rhinitis: Code(s): J30.9 - Allergic rhinitis, unspecified Qualifiers: Allergic rhinitis trigger: unspecified Allergic rhinitis seasonality: unspecified Qualified Code(s): J30.9 - Allergic rhinitis, unspecified Plan stop Incruse and Flovent start Trelegy 200 short-acting beta agonist as needed restart Singulair continue nasal therapies requesting blood work and allergy testing to address the question of biologic therapies will request spirometry during her last visit follow-up in 2-3 months Orders: Orders Immunoglobulin E Today J44.9 - Chronic obstructive pulmonary disease, unspecified, J45.909 - Unspecified asthma, uncomplicated, T78.40XA - Allergy, unspecified, initial encounter, Z79.51 - [facility] (current) use of inhaled steroids Immunoglobulins,IgG IgA IgM Today J44.9 - Chronic obstructive pulmonary disease, unspecified, J45.909 - Unspecified asthma, uncomplicated, T78.40XA - Allergy, unspecified, initial encounter, Z79.51 - [facility] (current) use of inhaled steroids Complete Blood Count Auto Diff Today J44.9 - Chronic obstructive pulmonary disease, unspecified, J45.909 - Unspecified asthma, uncomplicated, T78.40XA - Allergy, unspecified, initial encounter, Z79.51 - [facility] (current) use of inhaled steroids Hypersensitive Pneumonitis Prf Today J44.9 - Chronic obstructive pulmonary disease, unspecified, J45.909 - Unspecified asthma, uncomplicated, R91.8 - Other nonspecific abnormal finding of lung field, T78.40XA - Allergy, unspecified, initial encounter, Z79.51 - [facility] (current) use of inhaled steroids Resp Allergy Profile Region I Today J44.9 - Chronic obstructive pulmonary disease, unspecified, J45.909 - Unspecified asthma, uncomplicated, R91.1 - Solitary pulmonary nodule, T78.40XA - Allergy, unspecified, initial encounter, Z79.51 - [employer] (current) use of inhaled steroids Pneumococcal 20 Immunization Today Z23 - Encounter for immunization Medications: New montelukast (Singulair) 10 mg PO BEDTIME 30 days 30 tabs 11RF J45.909 - Unspecified asthma, uncomplicated ghspjfkyqci-vyfhlzpsz-iplvwcyg 200-62.5-25 mcg (Trelegy Ellipta) 1 inh inhalation DAILY 30 days 60 ea 12RF Coding Level of Care Code New Pt Level 4 (74450) Diagnoses Severe persistent asthma without complication J45.50 Asthma severity: severe Asthma persistence: persistent Asthma complication type: uncomplicated Asthma-COPD overlap syndrome J44.9 Allergy, initial encounter T78.40XA Encounter type: initial encounter Allergic rhinitis, unspecified seasonality, unspecified trigger J30.9 Allergic rhinitis trigger: unspecified Allergic rhinitis seasonality: unspecified Time Spent (min) 38
[2024-01-03 14:15] VITALS: BP 128/60; PULSE 83; O2SAT 96; BMI 32.3
== END 2024-01-03 14:48 | disposition home or self-care (01) ==
PROVIDERS: PCP Internal Medicine; Visit Provider Hospitalist
DX: J45.50 Severe persistent asthma, uncomplicated (principal); J44.9 Chronic obstructive pulmonary disease, unspecified; T78.40XA Allergy, unspecified, initial encounter; J30.9 Allergic rhinitis, unspecified
CPT/HCPCS: 99204

== ENCOUNTER 2024-01-03 14:07 | Outpatient (REF) | payer MEDICARE, SELFPAY ==
[2024-01-03 15:01] LABS: MANUAL DIFF FLAG NO
[2024-01-03 15:57] LABS: Basophils Absolute Auto 0.1 X10*3/uL (0.0-0.2); Basophils Percent Auto 0.7 % (0-2); Eosinophils Absolute Auto 0.3 X10*3/uL (0.0-0.4); Eosinophils Percent Auto 2.8 % (0-4); Hematocrit 37.7 % (37.0-47.0); Hemoglobin 11.9 g/dl (12.0-16.0); Imm Gran Abs Auto 0.03 X10*3/uL (0.00-0.03); Imm Gran Pct Auto 0.3 % (0.0-0.4); Lymphocytes Absolute Auto 2.2 X10*3/uL (1.2-4.9); Lymphocytes Percent Auto 19.7 % (20-40); Mean Corpuscular HGB Conc 31.6 g/dl (31.0-35.0); Mean Corpuscular Hemoglobin 27.5 pg (27.0-33.0); Mean Corpuscular Volume 87.3 fL (80.0-98.0); Mean Platelet Volume 11.7 fL (9.4-12.3); Monocytes Absolute Auto 0.8 X10*3/uL (0.1-1.2); Monocytes Percent Auto 7.3 % (2-11); Neutrophils Absolute Auto 7.8 x10*3/uL (2.0-8.3); Neutrophils Percent Auto 69.2 % (45-73); Platelet Count 243 X10*3/uL (160-400); Red Blood Count 4.32 X10*6/uL (4.20-5.50); Red Cell Distribution Width 14.6 % (11.0-16.0); White Blood Count 11.3 X10*3/uL (4.8-10.8)
[2024-01-03 16:28] LABS: Alanine Aminotransferase 11 U/L (0-31); Albumin Level 3.8 g/dL (3.5-5.0); Alkaline Phosphatase 178 U/L (39-117); Anion Gap 10 (12-20); Aspartate Amino Transferase 15 U/L (5-31); Bilirubin Total 0.3 mg/dL (0.0-1.0); Blood Urea Nitrogen 20 mg/dL (9-16); Calcium 9.1 mg/dL (8.4-10.2); Carbon Dioxide 30 mmol/L (22-29); Chloride 106 mmol/L (96-108); Estimated Glomerular Filt Rate 35; Glucose Random 87 mg/dL (60-115); Potassium 4.2 mmol/L (3.3-5.1); Sodium 142 mmol/L (135-145); Total Protein 6.9 g/dL (6.5-8.0)
[2024-01-04 19:08] LABS: Immunoglobulin E 24 kU/L (<OR=114)
[2024-01-04 23:09] LABS: IgA 192 mg/dL (70-320); IgG 986 mg/dL (600-1540); IgM 133 mg/dL (50-300)
[2024-01-10 15:47] LABS: Asperg fumigatus Precip Abs NEGATIVE (NEGATIVE); Micropoly faeni Abs NEGATIVE (NEGATIVE); Pigeon serum Abs NEGATIVE (NEGATIVE); Saccharo pora viridis Abs NEGATIVE (NEGATIVE); Thermo candidus Abs NEGATIVE (NEGATIVE); Thermoa vulgaris #1 NEGATIVE (NEGATIVE)
== END 2024-01-03 14:08 | disposition home or self-care (01) ==
LOC: HO.LAB 14:07
PROVIDERS: Internal Medicine Medical Oncology; PCP Internal Medicine; Visit Provider Hospitalist
DX: J44.9 Chronic obstructive pulmonary disease, unspecified (principal); T78.40XA Allergy, unspecified, initial encounter; D05.12 Intraductal carcinoma in situ of left breast; R91.8 Other nonspecific abnormal finding of lung field; J45.50 Severe persistent asthma, uncomplicated; J30.9 Allergic rhinitis, unspecified; R91.1 Solitary pulmonary nodule; Z23 Encounter for immunization; Z79.51 Long term (current) use of inhaled steroids
CPT/HCPCS: 36415; 80053; 82784; 82785; 85025; 86331; 86606; 86609; 90471; 90677; 99202

== ENCOUNTER 2024-02-14 10:13 | Outpatient (AMB) | payer MEDICARE, SELFPAY ==
--- NOTE | 2024-02-14 11:28 | MHC.OFFWIV ---
Intake Vital Signs 02/14/24 11:29 Height 5 ft 5 in Weight 195 lb BMI 32.4 BP 140/90 H Blood Pressure Location Lt brachial Position Sitting Pulse 75 Pulse Source Pulse Oximeter Temp 97.4 F Temp Source Temporal Artery Scan Pulse Oximetry (%) 97 Oxygen Delivery Method Room Air Intake Visit Reasons: EP traveled and legs swollen back pain (lobby) Intake Note: pt is here today for traveled and leg swollen back pain stared 5 days ago Patient Tobacco Use Status: Never used Tobacco Allergies animal dander Allergy (Mild, Verified 02/14/24 11:34) SHORTNESS OF BREATH ciprofloxacin [From Cipro] Allergy (Mild, Verified 02/14/24 11:34) RASH vancomycin [Vancomycin] Allergy (Mild, Verified 02/14/24 11:34) SHORTNESS OF BREATH amoxicillin [AMOXICILLIN] Allergy (Unknown, Verified 02/14/24 11:34) RASH Penicillins [PENICILLINS] Allergy (Unknown, Verified 02/14/24 11:34) RASH Do you need a note to return to daycare/school/sports/work: No HPI HPI Comments History of Present Illness Details 68 y/o female patient who presents to [facility] in clinic with c/o swelling on bilateral lower extremities x 5 days. Pt just came back from a trip - [place] Denies SOB, CP, Dizziness or chest tightness. [facility] Medical History (Updated 01/03/24 @ 22:20 by Wolf Roasrio MD) Allergies Low back pain Asthma-COPD overlap syndrome Tubular adenoma Diverticulosis of colon Tubular adenoma COPD (chronic obstructive pulmonary disease) Acute anxiety COPD exacerbation Allergic rhinitis Hypothyroid Asthma Asthma dependent on inhaled steroids Depression Anxiety Irritable bowel Acid reflux Diverticulosis large intestine w/o perforation or abscess w/o bleeding Surgical History H/O esophagogastroduodenoscopy (~12/2018) History of colonoscopy with polypectomy (~12/2018) History of mandibular surgery Hx of cholecystectomy Hx of tubal ligation Family History Maternal Aunt Pancreatic cancer Maternal Grandmother Diabetes Stroke Maternal Grandfather Diabetes Mother COPD (chronic obstructive pulmonary disease) Father Respiratory failure Social History Household Members: Spouse Household Members Other:: Lives with an 11-year-old granddaughter Housing: House Are you a primary college and career counselor to a significant other at home: No Do you presently have visiting nurse or other home services: No Alcohol intake: never Patient Tobacco Use Status: Never used Tobacco e-Cigarette/Vaping Use: Never Used Second Hand Smoke Exposure: No service: No Current occupational status: retired Cognitive needs: No Hearing needs: No Vision needs: Yes (glasses) Review of Systems Const All systems reviewed & are unremarkable except as noted in HPI and below Physical Exam Vital Signs: Last Vital Signs Temp 97.4 F 02/14/24 11:29 Pulse 75 02/14/24 11:29 BP 140/90 H 02/14/24 11:29 Pulse Ox 97 02/14/24 11:29 Oxygen Delivery Method Room Air 02/14/24 11:29 BMI result Body Mass Index 32.4 Const General: comfortable and no acute distress Nutritional Appearance: overweight Orientation/consciousness: patient oriented x3 Resp Effort & Inspection: normal respiratory effort Auscultation: clear to auscultation bilaterally Cardio Rate: regular rate Rhythm: regular rhythm Neuro General: patient oriented x3, gait normal and moves all extremities Extrem Right lower extremity: lower leg Details: pitting edema; no erythema and no tenderness Left lower extremity: lower leg Details: pitting edema; no erythema and no tenderness Assessment & Plan Assessment & Plan (1) Peripheral edema: Code(s): R60.0 - Localized edema Plan: - Furosemide - Elevate legs above heart level. - Report CP, SOB, headaches and dizziness. (2) Elevated blood pressure reading: Code(s): R03.0 - Elevated blood-pressure reading, without diagnosis of hypertension Plan: - BP elevated in Office - Denies h/o Hypertension - F/U with PCP for BP management. Medications: New furosemide 40 mg PO DAILY 30 tabs 0RF R03.0 - Elevated blood-pressure reading, without diagnosis of hypertension, R60.0 - Localized edema Coding Level of Care Code Est Pt Level 3 (73290) Diagnoses Peripheral edema R60.0 Elevated blood pressure reading R03.0 Time Spent (min) 15
[2024-02-14 11:29] VITALS: BP 140/90; PULSE 75; TEMP 36.3; O2SAT 97; BMI 32.4
== END 2024-02-14 12:07 | disposition home or self-care (01) ==
PROVIDERS: PCP Internal Medicine; Visit Provider Nurse Practitioner Family
DX: R60.0 Localized edema (principal); R03.0 Elevated blood-pressure reading, without diagnosis of hypertension
CPT/HCPCS: 99213

== ENCOUNTER 2024-02-24 14:21 | Outpatient (AMB) | payer OTHER, SELFPAY ==
--- NOTE | 2024-02-24 14:37 | A.OFFPC_ITS ---
Vital Signs 02/24/24 14:40 Height 5 ft 5 in Weight 192 lb 4 oz BMI 32.0 BP 132/76 Blood Pressure Location Rt brachial Position Sitting Pulse 87 Pulse Source Pulse Oximeter Pulse Oximetry (%) 97 Oxygen Delivery Method Room Air Intake Visit Reasons: 3mth f/u Intake Note: Patient is here to follow up on Asthma, COPD, Polyartralgia. Complaint of swelling in both legs. Poultry Boner Required: No Information Interpreted: non-clinical & clinical Surfboard Maker: Present Accompanied by: Spouse Allergies animal dander Allergy (Mild, Verified 02/24/24 14:39) SHORTNESS OF BREATH ciprofloxacin [From Cipro] Allergy (Mild, Verified 02/24/24 14:39) RASH vancomycin [Vancomycin] Allergy (Mild, Verified 02/24/24 14:39) SHORTNESS OF BREATH amoxicillin [AMOXICILLIN] Allergy (Unknown, Verified 02/24/24 14:39) RASH Penicillins [PENICILLINS] Allergy (Unknown, Verified 02/24/24 14:39) RASH Tobacco use date assessed: 02/24/24 Fall risk assessment: No Falls in past year Last assessed Fall Risk: 02/24/24 Dental Screening Dental Screen Date: 11/15/23 HPI 3mth f/u HPI Details 68-year-old female presents to the offic e to discuss her chronic medical conditions. Since last office visit, patient had gone to the walk-in for swelling in the feet. She was given furosemide and symptoms have since resolved. She is now at baseline state of health. Able to function and do all activities of daily evens ing. [facility] Medical History (Updated 01/03/24 @ 22:20 by Wolf Rosario MD) Allergies Low back pain Asthma-COPD overlap syndrome Tubular adenoma Diverticulosis of colon Tubular adenoma COPD (chronic obstructive pulmonary disease) Acute anxiety COPD exacerbation Allergic rhinitis Hypothyroid Asthma Asthma dependent on inhaled steroids Depression Anxiety Irritable bowel Acid reflux Diverticulosis large intestine w/o perforation or abscess w/o bleeding Surgical History H/O esophagogastroduodenoscopy (~12/2018) History of colonoscopy with polypectomy (~12/2018) History of mandibular surgery Hx of cholecystectomy Hx of tubal ligation Family History Maternal Aunt Pancreatic cancer Maternal Grandmother Diabetes Stroke Maternal Grandfather Diabetes Mother COPD (chronic obstructive pulmonary disease) Father Respiratory failure Social History Household Members: Spouse Household Members Other:: Lives with an 11-year-old granddaughter Housing: House Are you a primary child care counselor to a significant other at home: No Do you presently have visiting nurse or other home services: No Alcohol intake: never Patient Tobacco Use Status: Never used Tobacco e-Cigarette/Vaping Use: Never Used Second Hand Smoke Exposure: No service: No Current occupational status: retired Cognitive needs: No Hearing needs: No Vision needs: Yes (glasses) Questionnaire Thrive Questionnaire Date Thrive assessed: 11/15/23 LIAM-7 AMB Questionnaire LIAM-7 Date LIAM - 7 assessed: 11/15/23 Source: Developed by Drs. Jacob Velasquez, Maribel Du, Pablito Rajan and colleagues, with an educational adrian from [employer]. Physical exam (Primary Care) Vital Signs: Last Vital Signs Pulse 87 02/24/24 14:40 BP 132/76 02/24/24 14:40 Pulse Ox 97 02/24/24 14:40 Oxygen Delivery Method Room Air 02/24/24 14:40 BMI result Body Mass Index 32.0 Tobacco/Smoking Status: Tobacco use Status Tobacco use date assessed 02/24/24 02/24/24 14:51 Patient Tobacco Use Status Never used Tobacco 02/24/24 14:38 e-Cigarette/Vaping Use Never Used 02/24/24 14:38 Thrive Assessment: Date of Thrive Assessment Date Thrive assessed 11/15/23 02/24/24 14:38 Const General: cooperative and healthy appearing Nutritional Appearance: well nourished Orientation/consciousness: patient oriented x3 Limitations: no limitations HENMT Head: Yes normal to inspection Eyes General: appearance normal, both eyes and all related structures Neck Neck: Yes normal visual inspection Chest Chest palpation & inspection: normal palpation of entire chest wall Resp Effort & Inspection: normal respiratory effort Neuro General: patient oriented x3 Assessment and Plan Assessment & Plan (1) Asthma-COPD overlap syndrome: Comment: Code(s): J44.9 - Chronic obstructive pulmonary disease, unspecified Plan: Condition is stable. Discontinue the furosemide. Coding Level of Care Code Est Pt Level 3 (72611) Diagnoses Asthma-COPD overlap syndrome J44.9
[2024-02-24 14:40] VITALS: BP 132/76; PULSE 87; O2SAT 97; BMI 32.0
== END 2024-02-24 15:29 | disposition home or self-care (01) ==
PROVIDERS: PCP Internal Medicine; Visit Provider Internal Medicine
DX: J44.9 Chronic obstructive pulmonary disease, unspecified (principal)
CPT/HCPCS: 99213

== ENCOUNTER 2024-03-10 13:41 | Outpatient (AMB) | payer MEDICARE, MEDICAID, SELFPAY ==
[2024-03-10 13:45] VITALS: PULSE 69; O2SAT 98; BMI 32.3
--- NOTE | 2024-03-10 13:45 | A.OFFVIS_ITS ---
Vital Signs 03/10/24 13:45 Height 5 ft 5 in Weight 194 lb BMI 32.3 Pulse 69 Pulse Source Pulse Oximeter Pulse Oximetry (%) 98 Oxygen Delivery Method Room Air Intake Visit Reasons: Asthma Box Bender Required: No Allergies animal dander Allergy (Mild, Verified 03/10/24 13:46) SHORTNESS OF BREATH ciprofloxacin [From Cipro] Allergy (Mild, Verified 03/10/24 13:46) RASH vancomycin [Vancomycin] Allergy (Mild, Verified 03/10/24 13:46) SHORTNESS OF BREATH amoxicillin [AMOXICILLIN] Allergy (Unknown, Verified 03/10/24 13:46) RASH Penicillins [PENICILLINS] Allergy (Unknown, Verified 03/10/24 13:46) RASH HPI Comments Details: The patient is a 68 year woman with a known history of asthma. Apparently the patient has had lifelong asthma. The last time that she did undergo pulmonary function studies was back in 2021 and he actually had more of a fixed obstructive defect consistent more severe COPD. Therefore she likely has developed asthma COPD overlap syndrome in view of her significant disease. The patient has been on multiple respiratory inhalers with only partial improvement of his symptoms. She is getting dyspnea even with minimal activity. Moderate severity. Does not feel like she is responding well to her current respiratory therapy and would like to further optimize her respiratory regimen. At this point is very reasonable to do so. We did talk about biologic therapies but I explained to her that is mainly for allergic asthma. We did review her blood work that she has had in the past and no significant evidence of any eosinophilia or elevations in the IgE. Will go ahead and repeat those specially to see if she is a candidate now. 03/10/2024 the patient is here for a pulmonary follow-up visit. The patient overall has been doing a lot better. The Trelegy inhaler has been affecting beneficial. She really was doing very well until 2 days ago when she started developing again chest tightness and wheezing. She had to use her nebulizer her yesterday. The patient denies any chest congestion fevers or sick contacts. She did have blood work done in her IgE level was reasonable within normal limits and also her eosinophil level was just at the higher limit of normal of 300. the patient still may be a candidate for biologics if she continues to have worsening symptoms. But overall she has been doing well just prior to this last few days. So therefore will continue with the current therapy. She is going to start the nebulized therapy once or twice a day as needed. If the patient worsens then will give her a course of antibiotics and prednisone to treat her for a lower respiratory infection that may be triggering her asthma. If she continues have worsening asthma symptoms will consider biologics during the next visit. ON LICENSE OF [facility] Medical History (Updated 01/03/24 @ 22:20 by Wolf Rosario MD) Allergies Low back pain Asthma-COPD overlap syndrome Tubular adenoma Diverticulosis of colon Tubular adenoma COPD (chronic obstructive pulmonary disease) Acute anxiety COPD exacerbation Allergic rhinitis Hypothyroid Asthma Asthma dependent on inhaled steroids Depression Anxiety Irritable bowel Acid reflux Diverticulosis large intestine w/o perforation or abscess w/o bleeding Surgical History H/O esophagogastroduodenoscopy (~12/2018) History of colonoscopy with polypectomy (~12/2018) History of mandibular surgery Hx of cholecystectomy Hx of tubal ligation Family History Maternal Aunt Pancreatic cancer Maternal Grandmother Diabetes Stroke Maternal Grandfather Diabetes Mother COPD (chronic obstructive pulmonary disease) Father Respiratory failure Social History Household Members: Spouse Household Members Other:: Lives with an 11-year-old granddaughter Housing: House Are you a primary child care center administrator to a significant other at home: No Do you presently have visiting nurse or other home services: No Alcohol intake: never Patient Tobacco Use Status: Never used Tobacco e-Cigarette/Vaping Use: Never Used Second Hand Smoke Exposure: No service: No Current occupational status: retired Cognitive needs: No Hearing needs: No Vision needs: Yes (glasses) Review of Systems Const Denies fever(s) Eyes Reports no additional complaints ENT Reports nasal congestion (Mild intermittent) Card Denies chest pain, Denies irregular heart rhythm, Denies leg edema and Reports dyspnea on exertion Resp Reports as per HPI, Reports cough, Reports dyspnea on exertion and Reports wheezing GI Reports heartburn (Controlled with med) Reports no additional complaints Skin/Breast Reports system reviewed and no additional complaints, except as documented Neuro Reports no additional complaints Psych Reports anxiety and Reports depression Aller/Immun Reports wheezing Physical Exam Vital Signs: Last Vital Signs Pulse 69 05/10/24 13:45 Pulse Ox 98 03/10/24 13:45 Oxygen Delivery Method Room Air 03/10/24 13:45 BMI result Body Mass Index 32.3 Const General: comfortable HEENT Head: Yes normocephalic Neck Neck: Yes supple Chest Chest palpation & inspection: normal inspection of the chest Resp Effort & Inspection: normal respiratory effort and prolonged expiratory phase Auscultation: no wheezes and diminished lung sounds Cardio Heart sounds: S1 normal heart sound present and S2 normal heart sound present GI Palpation (GI): Soft to palpation Skin Rashes: rashes noted (eczema) Assessment & Plan Assessment & Plan (1) Asthma: Code(s): J45.909 - Unspecified asthma, uncomplicated Category: Medical Qualifiers: Asthma complication type: uncomplicated Asthma persistence: persistent Asthma severity: severe Qualified Code(s): J45.50 - Severe persistent asthma, uncomplicated (2) Asthma-COPD overlap syndrome: Comment: Code(s): J44.9 - Chronic obstructive pulmonary disease, unspecified Category: Medical (3) Allergies: Code(s): T78.40XA - Allergy, unspecified, initial encounter Category: Medical Qualifiers: Encounter type: initial encounter Qualified Code(s): T78.40XA - Allergy, unspecified, initial encounter (4) Allergic rhinitis: Code(s): J30.9 - Allergic rhinitis, unspecified Category: Medical Qualifiers: Allergic rhinitis seasonality: unspecified Allergic rhinitis trigger: unspecified Qualified Code(s): J30.9 - Allergic rhinitis, unspecified Plan continue Trelegy 200 start Budesonide Nebs daily Nebulizer therapy: Duoneb BID short-acting beta agonist as needed continue Singulair continue nasal therapies consider biologic therapies follow-up in 4-6 months Medications: New prednisone PO daily; Take 2 tabs daily x 5 days, then 1 tablet daily x 5 days 15 tabs 0RF 10 days Changed From budesonide 0.5 mg inhalation .q 6 h J44.9 - Chronic obstructive pulmonary disease, unspecified To budesonide 0.5 mg (2 mL) inhalation DAILY 60 mL 5RF 30 days J44.9 - Chronic obstructive pulmonary disease, unspecified From ipratropium-albuterol 0.5 mg-3 mg(2.5 mg base)/3 mL 3 mL inhalation QID 30 days 360 mL 3RF severe copd/asthma J44.9 - Chronic obstructive pulmonary disease, unspecified To ipratropium-albuterol 0.5 mg-3 mg(2.5 mg base)/3 mL 3 mL inhalation BID 180 mL 8RF severe copd/asthma 30 days J44.9 - Chronic obstructive pulmonary disease, unspecified Refilled albuterol sulfate 90 mcg/actuation 2 puffs inhalation Q4-6H PRN 6.7 grams 11RF shortness of breath or wheezing Coding Level of Care Code Est Pt Level 4 (86341) Diagnoses Severe persistent asthma without complication J45.50 Asthma complication type: uncomplicated Asthma persistence: persistent Asthma severity: severe Asthma-COPD overlap syndrome J44.9 Allergy, initial encounter T78.40XA Encounter type: initial encounter Allergic rhinitis, unspecified seasonality, unspecified trigger J30.9 Allergic rhinitis seasonality: unspecified Allergic rhinitis trigger: unspecified Time Spent (min) 16
== END 2024-03-10 14:10 | disposition home or self-care (01) ==
PROVIDERS: PCP Internal Medicine; Visit Provider Hospitalist
DX: J45.50 Severe persistent asthma, uncomplicated (principal); J44.9 Chronic obstructive pulmonary disease, unspecified; T78.40XA Allergy, unspecified, initial encounter; J30.9 Allergic rhinitis, unspecified
CPT/HCPCS: 99214

== ENCOUNTER → 2024-03-10 13:41 | Outpatient (BNVA) | payer MEDICARE, SELFPAY | PROVIDERS: PCP Internal Medicine; Visit Provider Hospitalist | DX: J44.9 Chronic obstructive pulmonary disease, unspecified (principal); J45.50 Severe persistent asthma, uncomplicated; T78.40XA Allergy, unspecified, initial encounter; J30.9 Allergic rhinitis, unspecified; Z79.51 Long term (current) use of inhaled steroids; Z79.899 Other long term (current) drug therapy | CPT/HCPCS: 99212 ==

== ENCOUNTER 2024-04-14 09:34 | Outpatient (REF) | payer MEDICARE, SELFPAY ==
[2024-04-14 09:52] LABS: MANUAL DIFF FLAG NO
[2024-04-14 10:51] LABS: Basophils Absolute Auto 0.1 X10*3/uL (0.0-0.2); Basophils Percent Auto 1.3 % (0-2); Eosinophils Absolute Auto 0.2 X10*3/uL (0.0-0.4); Eosinophils Percent Auto 2.2 % (0-4); Hematocrit 38.2 % (37.0-47.0); Hemoglobin 12.2 g/dl (12.0-16.0); Imm Gran Abs Auto 0.03 X10*3/uL (0.00-0.03); Imm Gran Pct Auto 0.4 % (0.0-0.4); Lymphocytes Absolute Auto 1.7 X10*3/uL (1.2-4.9); Lymphocytes Percent Auto 22.2 % (20-40); Mean Corpuscular HGB Conc 31.9 g/dl (31.0-35.0); Mean Corpuscular Hemoglobin 27.4 pg (27.0-33.0); Mean Corpuscular Volume 85.7 fL (80.0-98.0); Mean Platelet Volume 11.3 fL (9.4-12.3); Monocytes Absolute Auto 0.5 X10*3/uL (0.1-1.2); Monocytes Percent Auto 5.7 % (2-11); Neutrophils Absolute Auto 5.4 x10*3/uL (2.0-8.3); Neutrophils Percent Auto 68.2 % (45-73); Platelet Count 237 X10*3/uL (160-400); Red Blood Count 4.46 X10*6/uL (4.20-5.50); Red Cell Distribution Width 14.6 % (11.0-16.0); White Blood Count 7.9 X10*3/uL (4.8-10.8)
[2024-04-14 10:58] LABS: Estimated Average Glucose 111 mg/dL; Hemoglobin A1c % 5.5 % (<6.0)
[2024-04-14 11:33] LABS: Alanine Aminotransferase 9 U/L (0-31); Albumin Level 3.9 g/dL (3.5-5.0); Alkaline Phosphatase 174 U/L (39-117); Amylase 47 U/L (28-100); Anion Gap 11 (12-20); Aspartate Amino Transferase 14 U/L (5-31); Bilirubin Total 0.5 mg/dL (0.0-1.0); Blood Urea Nitrogen 13 mg/dL (9-16); Calcium 9.2 mg/dL (8.4-10.2); Carbon Dioxide 27 mmol/L (22-29); Chloride 107 mmol/L (96-108); Cholesterol 197 mg/dL (<200); Estimated Glomerular Filt Rate 45; Glucose Random 108 mg/dL (60-115); HDL Cholesterol 47 mg/dL (>40); LDL Cholesterol Calculated 129 mg/dL (<100); Lipase 14 U/L (8-78); Potassium 3.8 mmol/L (3.3-5.1); Sodium 141 mmol/L (135-145); Total Protein 7.1 g/dL (6.5-8.0); Triglycerides 105 mg/dL (<150)
[2024-04-14 11:39] LABS: HBsAGNum1 0.26 S/CO (0.00-0.99); HIV AB/AG Nonreactive (Nonreactive); HIV Num 1 0.05 S/CO (0.00-0.99); Hepatitis B Surface Antigen Negative (Negative); ~HepC Num1 0.09 S/CO (0.00-0.79); ~Hepatitis C Antibody Nonreactive (Nonreactive)
[2024-04-14 11:49] LABS: Free T4 (Free Thyroxine) 1.16 ng/dL (0.71-1.85); Thyroid Stimulating Hormone 2.85 uIU/mL (0.32-4.0)
== END 2024-04-14 09:35 | disposition home or self-care (01) ==
LOC: HO.LAB 09:34
PROVIDERS: PCP Internal Medicine; Visit Provider Internal Medicine Infectious Disease
DX: Z20.2 Contact with and (suspected) exposure to infections with a predominantly sexual mode of transmission (principal); E66.9 Obesity, unspecified; Z68.30 Body mass index [BMI] 30.0-30.9, adult; Z13.1 Encounter for screening for diabetes mellitus; Z13.29 Encounter for screening for other suspected endocrine disorder
CPT/HCPCS: 36415; 80053; 80061; 82150; 83036; 83690; 84439; 84443; 85025; 86803; 87340; 87389

== ENCOUNTER 2024-05-19 12:49 | Emergency (ER) | payer MEDICARE, SELFPAY ==
--- NOTE | ~2024-05-19 | CT_ITS ---
EXAMINATION: CT ABDOMEN AND PELVIS WITHOUT CONTRAST CLINICAL INFORMATION: Lower abdominal pain, diarrhea COMPARISON: Ultrasound from 02/10/2023, CT from 01/20/2021 TECHNIQUE: Multidetector volumetric imaging was performed from the superior aspect of the liver through the pubic symphysis. Sagittal and coronal reformatted images were obtained on the technologist's workstation. This CT examination was performed using dose optimization techniques as appropriate, variously including the following: *Automated exposure control *Adjustment of mA and/or kV according to patient size (this includes techniques or standardized protocols for targeted exams where dose is matched to indication/reason for exam; i.e. extremities or head) *Use of iterative reconstruction technique DLP: 631 mGy-cm FINDINGS: LUNG BASES: The visualized lung bases are unremarkable. LIVER, GALLBLADDER, AND BILIARY TREE: The liver is normal in size, shape, and attenuation. No focal hepatic lesion or biliary ductal dilatation is present. Status post cholecystectomy PANCREAS: Unremarkable. SPLEEN: Unremarkable. ADRENAL GLANDS: Unremarkable. KIDNEYS AND URETERS: The kidneys are normal in size, shape, and attenuation. No hydronephrosis, hydroureter, or calculi seen. No perinephric stranding. BLADDER: Unremarkable. GASTROINTESTINAL TRACT: Large hiatal hernia extending into the chest. The small bowel are unremarkable. The appendix is unremarkable. Diverticula seen within the sigmoid colon without evidence of acute diverticulitis ABDOMINAL WALL: No significant hernia is appreciated. LYMPH NODES: Normal. VASCULAR: Unremarkable. PELVIC VISCERA: The uterus and adnexa are unremarkable. OSSEOUS STRUCTURES: Degenerative disc disease seen at L4/L5. CT/CT abdomen pelvis wo IV con IMPRESSION: 1. No acute process. 2. Large hiatal hernia. 3. Diverticulosis.
[2024-05-19 12:53] VITALS: BP 139/63; PULSE 89; RESP 19; TEMP 36.6; O2SAT 99; BMI 31.8
--- NOTE | 2024-05-19 12:53 | ED.GENADULT ---
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 Admits to lower abdominal pain that begins directly after eating and resolves with passing bowel movements. Admits to 3-4 bowel movements daily consisting of loose stool. Denies recent antibiotics. Denies known sick contacts. No one else in her home with similar symptoms. Admits to abdominal pain at baseline, typically an epigastric region secondary to her GERD. Takes omeprazole daily for this. States that this has not been relieving her current lower abdominal pain. Denies fever, chills, hematochezia, hematemesis, melena, flank pain, dysuria, hematuria, vaginal discharge or bleeding. talent acquisition coordinator utilized throughout visit to communicate with patient. Related Data Home Medications ?Medication ?Instructions ?Recorded ?Confirmed cholecalciferol (vitamin D3) 50 50 mcg PO BID 07/30/20 11/23/22 mcg (2,000 unit) capsule levothyroxine 100 mcg tablet 100 mcg PO DAILY 07/30/20 11/23/22 acetaminophen 650 mg 650 mg PO Q8H PRN pain 10/07/20 11/23/22 tablet,extended release citalopram 20 mg tablet 20 mg PO DAILY 01/03/24 docusate sodium 100 mg capsule 200 mg PO BEDTIME PRN 01/03/24 (Colace) hydroxyzine HCl 25 mg tablet 25 mg PO BID 01/03/24 nebulizers 01/03/24 Previous Rx's ?Medication ?Instructions ?Recorded hydrocortisone 2.5 % topical cream 1 appl HI BID-QID PRN hemorrhoids 07/09/22 with perineal applicator #30 grams (Procto-Med HC) fluticasone fur. 200 mcg-umeclid 1 inh inhalation DAILY 30 days #60 01/03/24 62.5 mcg-vilant 25 mcg ea inhalat.powder (Trelegy Ellipta) montelukast 10 mg tablet 10 mg PO BEDTIME 30 days #30 tabs 01/03/24 (Singulair) furosemide 40 mg tablet 40 mg PO DAILY #30 tabs 02/14/24 albuterol sulfate 90 mcg/actuation 2 puff inhalation Q4-6H PRN 03/10/24 aerosol inhaler shortness of breath or wheezing #6.7 grams budesonide 0.5 mg/2 mL suspension 0.5 mg (2 mL) inhalation DAILY 30 03/10/24 for nebulization days #60 mL ipratropium 0.5 mg-albuterol 3 mg 3 ml inhalation BID severe 03/10/24 (2.5 mg base)/3 mL nebulization copd/asthma 30 days #180 mL soln prednisone 20 mg tablet See Rx Instructions PO DAILY 10 03/10/24 days #15 tabs pantoprazole 40 mg tablet,delayed 40 mg PO DAILY 30 days #30 tabs 03/13/24 release loperamide 2 mg tablet (Imodium 4 mg (2 x 2 mg) PO DAILY PRN loose 05/19/24 A-D) stool #10 tabs ondansetron 4 mg disintegrating 4 mg PO DAILY PRN nausea and 05/19/24 tablet vomiting 5 days #10 tabs Allergies Allergy/AdvReac Type Severity Reaction Status Date / Time animal dander Allergy Mild SHORTNESS Verified 05/19/24 12:54 OF BREATH ciprofloxacin [From Cipro] Allergy Mild RASH Verified 05/19/24 12:54 vancomycin [Vancomycin] Allergy Mild SHORTNESS Verified 05/19/24 12:54 OF BREATH amoxicillin [AMOXICILLIN] Allergy Unknown RASH Verified 05/19/24 12:54 Penicillins [PENICILLINS] Allergy Unknown RASH Verified 05/19/24 12:54 Review of Systems Review of Systems: Constitutional: No fever, chills, fatigue, night sweats, weight changes ENT/Mouth: No ear pain, hearing loss, nasal congestion, sinus pain, rhinorrhea, sore throat Eyes: No eye pain, swelling, redness, vision changes, discharge Cardio: No chest pain, palpitations, [place], orthopnea, peripheral edema Pulm: No SOB, cough, sputum, wheezing, dyspnea, hemoptysis GI: No hematemesis, c onstipation, hematochezia, melena, +abdominal pain, +nausea, +vomiting, +diarrhea : No irregular bleeding, dysuria, frequency, urgency, hesitancy, hematuria, flank pain, urinary flow changes, urinary incontinence or retention MSK: No back pain, neck pain, joint pain, myalgias Skin: No lesions, rashes Neuro: No weakness, numbness, paresthesias, LOC, dizziness, headache Psych: No anxiety/panic, depression, SI/HI, AH/VH All other systems reviewed and are negative. [facility] Past Medical History Attestation statement: The following information was validated with the patient. Source: old records reviewed and nursing notes reviewed Medical History Allergies Low back pain Asthma-COPD overlap syndrome Tubular adenoma Diverticulosis of colon Tubular adenoma COPD (chronic obstructive pulmonary disease) Acute anxiety COPD exacerbation Allergic rhinitis Hypothyroid Asthma Asthma dependent on inhaled steroids Depression Anxiety Irritable bowel Acid reflux Diverticulosis large intestine w/o perforation or abscess w/o bleeding Surgical History H/O esophagogastroduodenoscopy (~12/2018) History of colonoscopy with polypectomy (~12/2018) History of mandibular surgery Hx of cholecystectomy Hx of tubal ligation Family History Family History Maternal Aunt Pancreatic cancer Maternal Grandmother Diabetes Stroke Maternal Grandfather Diabetes Mother COPD (chronic obstructive pulmonary disease) Father Respiratory failure Social History Social History Household Members: Spouse Household Members Other:: Lives with an 11-year-old granddaughter Housing: House Are you a primary career services officer to a significant other at home: No Do you presently have visiting nurse or other home services: No Alcohol intake: never Patient Tobacco Use Status: Never used Tobacco e-Cigarette/Vaping Use: Never Used Second Hand Smoke Exposure: No service: No Current occupational status: retired Cognitive needs: No Hearing needs: No Vision needs: Yes (glasses) Physical Exam ED Vital Signs: Vital Signs - 24 hr 05/19/24 12:53 05/19/24 17:02 05/19/24 21:10 Temperature 98 F 97.7 F Pulse Rate 89 74 76 Respiratory Rate 19 16 14 Blood Pressure 139/63 132/72 118/59 L Pulse Oximetry 99 97 Oxygen Delivery Method Room Air Room Air 05/19/24 21:23 Temperature 97.7 F Pulse Rate 76 Respiratory Rate 14 Blood Pressure 118/59 L Pulse Oximetry 97 Oxygen Delivery Method Room Air BMI result Body Mass Index 31.8 Vital signs stable, afebrile Const General: cooperative, healthy appearing, comfortable and no acute distress Orientation/consciousness: patient oriented x3 Limitations: no limitations HENMT Head: Yes normal to inspection, Yes No palpable skull fracture present, Yes normocephalic and Yes atraumatic Eyes General: appearance normal, both eyes and all related structures Pupils: Equal, round and reactive pupils present Neck Neck: Yes normal visual inspection, Yes full ROM and Yes no lymphadenopathy Resp Effort & Inspection: normal respiratory effort and able to speak in complete sentences Auscultation: clear to auscultation bilaterally Cardio Rate: regular rate Rhythm: regular rhythm GI Other: Obese abdomen, soft, nondistended, nontender to palpation, no rebound tenderness or guarding, normoactive bowel sounds x4 General: Yes no CVA tenderness Back/Spine/Pelvis Back: no CVA tenderness Skin General skin exam: no rashes or lesions noted Neuro General: patient oriented x3 and gait normal Cranial nerves: Yes Equal, round and reactive pupils present Course Course Course Narrative: This is an RME performed by Anca Ramirez CNP: Additional HPI, ROS, PE not included below will be deferred to primary provider. Patient is a 69-year-old female who presents to the emergency department for evaluation lower abd pain, nausea, frequent vomiting, loose stools Plan: Labs, urinalysis Reevaluation(s) Reevaluation #1: 1720-- CBC without leukocytosis or left shift. No anemia. H&H stable. Chemistry without acute electrolyte abnormality requiring intervention. Normal renal function. Alk-phos elevated to 200, appears to be around patient's baseline when compared to priors. Lipase WNL at 11, unlikely pancreatitis. Urinalysis without infection. She was tested negative for COVID, flu, RSV. > patient receiving GI cocktail of Zofran, Maalox, along with IV fluids. > awaiting CT abdomen/pelvis 2100-- CT abdomen/pelvis showing large hiatal hernia. Consistent with history of GERD. Advised patient to follow-up with her GI doctor regarding this as she will likely require further management. Advised to continue her omeprazole. CT also shows evidence of diverticulosis without evidence of diverticulitis. > I discussed all work up results with patient. reports improvement in symptoms with GI cocktail and IVF. She is tolerating a ham sandwich and gingerale. No further episodes of vomiting or diarrhea while in ED. Patient is declining to provide us with stool sample for GI panel/ cdiff testing at this time. I feel patient is safe for discharge home at this time. clinical suspicion for gastritis vs gastroenteritis. Patient has remained stable throughout ED visit today. Discussed worrisome signs and symptoms and when to return to the ED. All questions answered at this time. Patient is agreeable with disposition and stable for discharge. Medications Administered Discontinued Medications Generic Name Dose Route Start Last Admin Trade Name Freq PRN Reason Stop Dose Admin Al Hydroxide/Mg Hydroxide 30 ml 05/19/24 17:01 05/19/24 17:23 Magnesium Hydrox/Alum Hydrox 30 Ml Oral.Susp PO 05/19/24 17:02 30 ml ONCE ONE Administration Belladonna Alkaloids/Phenobarbital 10 ml 05/19/24 17:01 05/19/24 17:23 Phenobarb/Hyoscy/Atropine/Scop 10 Ml Elixir PO 05/19/24 17:02 10 ml ONCE ONE Administration Sodium Chloride 1,000 mls @ 999 mls/hr 05/19/24 17:00 05/19/24 18:16 Ns IV 05/19/24 18:00 Infused .Q1H1M JOSÉ MIGUEL Infusion Ondansetron HCl 4 mg 05/19/24 16:53 05/19/24 17:24 Ondansetron Hcl 4 Mg/2 Ml Vial IVPUSH 05/19/24 16:54 4 mg ONCE ONE Administration Medical Decision Making Medical Decision Making MDM Narrative: 69-year-old American-speaking female with past medical history significant for asthma/COPD, anxiety, depression, hypothyroid, irritable bowel syndrome, GERD, diverticulosis presents to the ED today for evaluation of lower abdominal pain x3 days. Vital signs stable. She is nontoxic-appearing and in no acute distress. Obese abdomen, soft, nondistended, nontender to palpation, no rebound tenderness or guarding, normoactive bowel sounds x4. No CVAT bilaterally. Skin warm, dry, intact. Differential diagnosis includes gastroenteritis, gastritis, GERD, IBS, diverticulosis, diverticulitis Plan labs, viral serology, stool panel, C diff gene, CT abdomen/pelvis, IV fluids, meds, re-evaluation Differential Diagnosis Differential Diagnoses: The differential diagnosis associated with the presentation includes as above. Admission/Observation Consideration of admission/observation: Escalation of care including admission/observation considered Admission considered on presentation Lab Data MDM Lab Attestation statement: I reviewed the patient's lab results. as above 05/19/24 15:17 05/19/24 15:17 Labs: Lab Results 05/19/24 05/19/24 Range/Units 15:17 15:20 WBC 10.4 (4.8-10.8) X10*3/uL RBC 4.61 (4.20-5.50) X10*6/uL Hgb 12.9 (12.0-16.0) g/dl Hct 39.5 (37.0-47.0) % MCV 85.7 (80.0-98.0) fL MCH 28.0 (27.0-33.0) pg MCHC 32.7 (31.0-35.0) g/dl RDW 14.2 (11.0-16.0) % Plt Count 238 (160-400) X10*3/uL MPV 10.3 (9.4-12.3) fL Immature Gran % (Auto) 0.3 (0.0-0.4) % Neut % (Auto) 76.6 H (45-73) % Lymph % (Auto) 14.6 L (20-40) % [place] % (Auto) 6.5 (2-11) % Eos % (Auto) 1.4 (0-4) % Baso % (Auto) 0.6 (0-2) % Lymph # (Auto) 1.5 (1.2-4.9) X10*3/uL [place] # (Auto) 0.7 (0.1-1.2) X10*3/uL Eos # (Auto) 0.2 (0.0-0.4) X10*3/uL Baso # (Auto) 0.1 (0.0-0.2) X10*3/uL Abs Immat Gran (auto) 0.03 (0.00-0.03) X10*3/uL Absolute Neuts (auto) 8.0 (2.0-8.3) x10*3/uL Absolute Nucleated RBC 0.000 (0.0-0.012) X10*3/uL Nucleated RBC % (auto) 0.0 (0.0-0.2) /100WBC Sodium 143 (135-145) mmol/L Potassium 4.3 (3.3-5.1) mmol/L Chloride 107 (96-108) mmol/L Carbon Dioxide 27 (22-29) mmol/L Anion Gap 13 (12-20) BUN 15 (9-16) mg/dL Creatinine 1.22 (0.5-1.4) mg/dL Estim Creat Clear Calc 45.6 Estimated GFR 44 Random Glucose 87 (60-115) mg/dL Calcium 9.8 D (8.4-10.2) mg/dL Total Bilirubin 0.5 (0.0-1.0) mg/dL Direct Bilirubin 0.2 (0.0-0.5) mg/dL AST 15 D (5-31) U/L ALT 11 (0-31) U/L Alkaline Phosphatase 200 H D (39-117) U/L Total Protein 7.5 (6.5-8.0) g/dL Albumin 4.2 (3.5-5.0) g/dL Lipase 11 (8-78) U/L Urine Color Dark Yellow Urine Appearance Cloudy Urine pH 6.0 (5.0-9.0) Ur Specific [place] 1.025 (1.005-1.025) Urine Protein 30 (1+) H (Neg-Trace) mg/dL Urine Glucose (UA) Negative (Negative) mg/dL Urine Ketones Trace (Negative) mg/dL Urine Blood Negative (Negative) Urine Nitrite Negative (Negative) Ur Leukocyte Esterase Small (1+) H (Negative) Urine RBC 0-2 (0-2) /HPF Urine WBC 0-5 (0-5) /HPF Ur Squamous Epith Cells 0-2 (0-2) /HPF Calcium Oxalate Crystal Present Urine Bacteria None Seen (None Seen) Hyaline Casts 3-5 (0-2) /LPF Influenza Type A (PCR) NEGATIVE (Negative) Influenza Type B (PCR) NEGATIVE (Negative) RSV RNA Qual (PCR) NEGATIVE (Negative) SARS-CoV-2 RNA (RT-PCR) NEGATIVE (Negative) Independent Interpretation I performed an independent interpretation of an: CT Scan Interpretation: CT abdomen/ pelvis showing hiatal hernia, agree with radiologist's interpretation. Radiology Impression Discussion of test interpretation with radiology: I have reviewed the radiologist's reading. Radiologist Impression: EXAMINATION: CT ABDOMEN AND PELVIS WITHOUT CONTRAST CLINICAL INFORMATION: Lower abdominal pain, diarrhea COMPARISON: Ultrasound from 02/10/2023, CT from 01/20/2021 TECHNIQUE: Multidetector volumetric imaging was performed from the superior aspect of the liver through the pubic symphysis. Sagittal and coronal reformatted images were obtained on the technologist's workstation. This CT examination was performed using dose optimization techniques as appropriate, variously including the following: *Automated exposure control *Adjustment of mA and/or kV according to patient size (this includes techniques or standardized protocols for targeted exams where dose is matched to indication/reason for exam; i.e. extremities or head) *Use of iterative reconstruction technique DLP: 631 mGy-cm FINDINGS: LUNG BASES: The visualized lung bases are unremarkable. LIVER, GALLBLADDER, AND BILIARY TREE: The liver is normal in size, shape, and attenuation. No focal hepatic lesion or biliary ductal dilatation is present. Status post cholecystectomy PANCREAS: Unremarkable. SPLEEN: Unremarkable. ADRENAL GLANDS: Unremarkable. KIDNEYS AND URETERS: The kidneys are normal in size, shape, and attenuation. No hydronephrosis, hydroureter, or calculi seen. No perinephric stranding. BLADDER: Unremarkable. GASTROINTESTINAL TRACT: Large hiatal hernia extending into the chest. The small bowel are unremarkable. The appendix is unremarkable. Diverticula seen within the sigmoid colon without evidence of acute diverticulitis ABDOMINAL WALL: No significant hernia is appreciated. LYMPH NODES: Normal. VASCULAR: Unremarkable. PELVIC VISCERA: The uterus and adnexa are unremarkable. OSSEOUS STRUCTURES: Degenerative disc disease seen at L4/L5. CT/CT abdomen pelvis wo IV con IMPRESSION: 1. No acute process. 2. Large hiatal hernia. 3. Diverticulosis. External Record Review External record reviewed: Inpatient record Prescription Management I considered prescription management with: Other (zofran) Chronic Conditions Patient?s care impacted by: Other (gerd) Social Determinants Patient?s care significantly limited by Social Determinants of Health including: Other Social Determinant of Health Discharge Plan Discharge Clinical Impression: Esophageal hiatal hernia Patient Disposition: Home, Self-Care Instructions: Hiatal Hernia (DC) Additional Instructions: Your blood work today is reassuring. Your urine is negative for infection. You tested negative for covid/flu/rsv. The CT scan of your abdomen shows large hiatal hernia. Please follow up with your GI doctor. Call them this week to make an appointment. Zofran is an anti-nausea medication. This has been sent to your pharmacy for you to take as needed for nausea.? You can also try over the counter Pepto Bismol or Imodium as needed for upset stomach and diarrhea. Continue taking omeprazole as prescribed for acid reflux.? Follow up with your primary care provider this week. If you develop new or worsening symptoms call 911 or come back to the ER for further evaluation. Prescriptions: New ondansetron 4 mg tablet,disintegrating 4 mg PO DAILY PRN (Reason: nausea and vomiting) 5 Days Qty: 10 0RF loperamide [Imodium A-D] 2 mg tablet 4 mg PO DAILY PRN (Reason: loose stool) Qty: 10 0RF No Action pantoprazole 40 mg tablet,delayed release (DR/EC) 40 mg PO DAILY 30 Days Qty: 30 2RF docusate sodium [Colace] 100 mg capsule 200 mg PO BEDTIME PRN furosemide 40 mg tablet 40 mg PO DAILY Qty: 30 0RF cholecalciferol (vitamin D3) 50 mcg (2,000 unit) capsule 50 mcg PO BID levothyroxine 100 mcg tablet 100 mcg PO DAILY acetaminophen 650 mg tablet extended release 650 mg PO Q8H PRN (Reason: pain) hydrocortisone [Procto-Med HC] 2.5 % cream with perineal applicator 1 appl HI BID-QID PRN (Reason: hemorrhoids) Qty: 30 3RF (DME) nebulizers Misc See Rx Instructions .ROUTE Rx Instructions: As directed hydroxyzine HCl 25 mg tablet 25 mg PO BID citalopram 20 mg tablet 20 mg PO DAILY montelukast [Singulair] 10 mg tablet 10 mg PO BEDTIME 30 Days Qty: 30 11RF Trelegy Ellipta 200-62.5-25 mcg blister with device 1 inh inhalation DAILY 30 Days Qty: 60 12RF budesonide 0.5 mg/2 mL suspension for nebulization 0.5 mg inhalation DAILY 30 Days Qty: 60 5RF prednisone 20 mg tablet See Rx Instructions PO DAILY 10 Days Qty: 15 0RF Rx Instructions: PO daily; Take 2 tabs daily x 5 days, then 1 tablet daily x 5 days albuterol sulfate 90 mcg/actuation HFA aerosol inhaler 2 puff inhalation Q4-6H PRN (Reason: shortness of breath or wheezing) Qty: 6.7 11RF ipratropium-albuterol 0.5 mg-3 mg(2.5 mg base)/3 mL solution for nebulization 3 ml inhalation BID 30 Days Qty: 180 8RF Referrals: [facility] [place] [facility] [Provider Group] Fahad Gutierrez MD [Primary Care Provider] - Interventions: ED Discharge Assessment Last Done: 05/19/24 21:23 Discharge Date/Time: 05/19/24 21:23 Print Language: American
[2024-05-19 15:25] LABS: MANUAL DIFF FLAG NO
[2024-05-19 15:29] LABS: Basophils Absolute Auto 0.1 X10*3/uL (0.0-0.2); Basophils Percent Auto 0.6 % (0-2); Eosinophils Absolute Auto 0.2 X10*3/uL (0.0-0.4); Eosinophils Percent Auto 1.4 % (0-4); Hematocrit 39.5 % (37.0-47.0); Hemoglobin 12.9 g/dl (12.0-16.0); Imm Gran Abs Auto 0.03 X10*3/uL (0.00-0.03); Imm Gran Pct Auto 0.3 % (0.0-0.4); Lymphocytes Absolute Auto 1.5 X10*3/uL (1.2-4.9); Lymphocytes Percent Auto 14.6 % (20-40); Mean Corpuscular HGB Conc 32.7 g/dl (31.0-35.0); Mean Corpuscular Volume 85.7 fL (80.0-98.0); Mean Platelet Volume 10.3 fL (9.4-12.3); Monocytes Absolute Auto 0.7 X10*3/uL (0.1-1.2); Monocytes Percent Auto 6.5 % (2-11); Neutrophils Percent Auto 76.6 % (45-73); Platelet Count 238 X10*3/uL (160-400); Red Blood Count 4.61 X10*6/uL (4.20-5.50); Red Cell Distribution Width 14.2 % (11.0-16.0); White Blood Count 10.4 X10*3/uL (4.8-10.8)
[2024-05-19 15:31] LABS: Appearance Urine Cloudy; Color Urine Dark Yellow; Glucose Urine UA Negative (Negative); Leukocyte Esterase Urine Small (1+) (Negative); Nitrite Urine Negative (Negative); Specific Gravity - Urine 1.025 (1.005-1.025); UMIC TRIGGER UACC YES; Urine Blood Negative (Negative); Urine Ketones Trace mg/dL (Negative); Urine Protein 30 (1+) mg/dL (Neg-Trace)
[2024-05-19 15:42] LABS: Aspartate Amino Transferase 15 U/L (5-31)
[2024-05-19 15:43] LABS: Alanine Aminotransferase 11 U/L (0-31); Carbon Dioxide 27 mmol/L (22-29); Chloride 107 mmol/L (96-108); Potassium 4.3 mmol/L (3.3-5.1); Sodium 143 mmol/L (135-145)
[2024-05-19 15:44] LABS: Albumin Level 4.2 g/dL (3.5-5.0); Blood Urea Nitrogen 15 mg/dL (9-16); Calcium 9.8 mg/dL (8.4-10.2); Creatinine Clr Calc Pharmacy 45.6; Estimated Glomerular Filt Rate 44; Glucose Random 87 mg/dL (60-115)
[2024-05-19 15:45] LABS: Bilirubin Total 0.5 mg/dL (0.0-1.0)
[2024-05-19 15:46] LABS: Alkaline Phosphatase 200 U/L (39-117); Lipase 11 U/L (8-78); Total Protein 7.5 g/dL (6.5-8.0)
[2024-05-19 15:47] LABS: Anion Gap 13 (12-20)
[2024-05-19 15:49] LABS: Bacteria Urine None Seen (None Seen); Calcium Oxalate Crystals Urine Present; RBC Urine 0-2 /HPF (0-2); Squamous Epithelial Cell Urine 0-2 /HPF (0-2); UACC Culture Trigger YES; WBC Urine 0-5 /HPF (0-5)
[2024-05-19 16:41] LABS: Influenza A PCR NEGATIVE (Negative); Influenza B PCR NEGATIVE (Negative); Resp Syncy Virus RNA Qual PCR NEGATIVE (Negative); SARS COV2 PCR INHOUSE NEGATIVE (Negative)
[2024-05-19 17:02] VITALS: BP 132/72; PULSE 74; RESP 16
[2024-05-19] MEDS: Magnesium Hydrox/Alum Hydrox 30 ML ORAL.SUSP PO (17:23)
[2024-05-19] MEDS: 0.9 % Sodium Chloride 1,000 ML 999 ML IV (17:23)
[2024-05-19] MEDS: PHENobarb/Hyoscy/Atropine/Scop 10 ML ELIXIR PO (17:23)
[2024-05-19] MEDS: ondansetron HCL 4 MG/2 ML VIAL IVPUSH (17:24)
[2024-05-19 17:28] LABS: Bilirubin Direct 0.2 mg/dL (0.0-0.5)
--- NOTE | 2024-05-19 17:39 | PC.NURSE ---
Pt presents to ED from home, reports 3 days of lower ABD pain along with nausea/ diarrhea. Reports poor PO intake and general malaise. Pain is 8/10, aching, lower ABD. Alert and oriented, breathing even and unlabored, skin warm and dry. VSS.
[2024-05-19 21:10] VITALS: BP 118/59; PULSE 76; RESP 14; TEMP 36.5; O2SAT 97
[2024-05-19 21:23] VITALS: BP 118/59; PULSE 76; RESP 14; TEMP 36.5; O2SAT 97
== END 2024-05-19 21:23 | disposition home or self-care (01) ==
PROVIDERS: Nurse Practitioner Family; Physician Assistant Medical; Emergency Provider Emergency Medicine; PCP Internal Medicine
DX: K44.9 Diaphragmatic hernia without obstruction or gangrene (principal); K57.30 Diverticulosis of large intestine without perforation or abscess without bleeding; R10.30 Lower abdominal pain, unspecified; Z03.818 Encounter for observation for suspected exposure to other biological agents ruled out; J45.909 Unspecified asthma, uncomplicated; Z79.899 Other long term (current) drug therapy
CPT/HCPCS: 0241U; 74176; 80053; 81001; 82248; 83690; 85025; 87086; 96361; 96374; 99284; 99285; J2405

== ENCOUNTER 2024-05-31 14:42 | Outpatient (AMB) | payer MEDICARE, SELFPAY ==
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
[2024-05-31 14:45] VITALS: BP 110/62; PULSE 89; O2SAT 94; BMI 31.5
== END 2024-05-31 15:56 | disposition home or self-care (01) ==
PROVIDERS: PCP Internal Medicine; Visit Provider Internal Medicine
DX: F41.9 Anxiety disorder, unspecified (principal); J45.909 Unspecified asthma, uncomplicated; Z79.51 Long term (current) use of inhaled steroids; R74.8 Abnormal levels of other serum enzymes
CPT/HCPCS: 99214; G2211

== ENCOUNTER 2024-06-05 11:07 | Outpatient (REF) | payer MEDICARE, SELFPAY ==
[2024-06-05 12:09] LABS: Alanine Aminotransferase 13 U/L (0-31); Alkaline Phosphatase 192 U/L (39-117); Aspartate Amino Transferase 15 U/L (5-31); Bilirubin Direct 0.2 mg/dL (0.0-0.5); Bilirubin Total 0.6 mg/dL (0.0-1.0); Estimated Glomerular Filt Rate 48; Total Protein 7.2 g/dL (6.5-8.0)
== END 2024-06-05 11:08 | disposition home or self-care (01) ==
LOC: HO.LAB 11:07
PROVIDERS: Absent Provider Hospitalist; PCP Internal Medicine; Visit Provider Internal Medicine Infectious Disease
DX: Z13.89 Encounter for screening for other disorder (principal)
CPT/HCPCS: 36415; 80076; 82565

== ENCOUNTER 2024-06-27 14:40 | Outpatient (AMB) | payer MEDICARE, MEDICAID, SELFPAY ==
[2024-06-27 14:45] VITALS: PULSE 83; O2SAT 97; BMI 31.6
--- NOTE | 2024-06-27 14:45 | A.OFFVIS_ITS ---
Vital Signs 06/27/24 14:45 Height 5 ft 4 in Weight 184 lb BMI 31.6 Pulse 83 Pulse Source Pulse Oximeter Pulse Oximetry (%) 97 Oxygen Delivery Method Room Air Intake Visit Reasons: asthma Range Technician Required: No Allergies animal dander Allergy (Mild, Verified 06/27/24 14:46) SHORTNESS OF BREATH ciprofloxacin [From Cipro] Allergy (Mild, Verified 06/27/24 14:46) RASH vancomycin [Vancomycin] Allergy (Mild, Verified 06/27/24 14:46) SHORTNESS OF BREATH amoxicillin [AMOXICILLIN] Allergy (Unknown, Verified 06/27/24 14:46) RASH Penicillins [PENICILLINS] Allergy (Unknown, Verified 06/27/24 14:46) RASH HPI Comments Details: The patient is a 69 year woman with a known history of asthma. Apparently the patient has had lifelong asthma. The last time that she did undergo pulmonary function studies was back in 2021 and he actually had more of a fixed obstructive defect consistent more severe COPD. Therefore she likely has developed asthma COPD overlap syndrome in view of her significant disease. The patient has been on multiple respiratory inhalers with only partial improvement of his symptoms. She is getting dyspnea even with minimal activity. Moderate severity. Does not feel like she is responding well to her current respiratory therapy and would like to further optimize her respiratory regimen. At this point is very reasonable to do so. We did talk about biologic therapies but I explained to her that is mainly for allergic asthma. We did review her blood work that she has had in the past and no significant evidence of any eosinophilia or elevations in the IgE. Will go ahead and repeat those specially to see if she is a candidate now. 03/10/2024 the patient is here for a pulmonary follow-up visit. The patient overall has been doing a lot better. The Trelegy inhaler has been affecting beneficial. She really was doing very well until 2 days ago when she started developing again chest tightness and wheezing. She had to use her nebulizer her yesterday. The patient denies any chest congestion fevers or sick contacts. She did have blood work done in her IgE level was reasonable within normal limits and also her eosinophil level was just at the higher limit of normal of 300. the patient still may be a candidate for biologics if she continues to have worsening symptoms. But overall she has been doing well just prior to this last few days. So therefore will continue with the current therapy. She is going to start the nebulized therapy once or twice a day as needed. If the patient worsens then will give her a course of antibiotics and prednisone to treat her for a lower respiratory infection that may be triggering her asthma. If she continues have worsening asthma symptoms will consider biologics during the next visit. 06/27/2024 the patient is here for a sick visit. She has been doing very well from a respiratory status. The Trelegy inhalers very affecting beneficial. She seldom takes the albuterol. Although she has been complaining of significant sinus pressure. She feels like she has some sore throat. She did test for COVID was negative. The patient has been having symptoms now for about a week and half. She has a hard time sleeping. Having headaches. She has tried cjoc-nzv-tkxswvk medications without any significant improvement. On examination she does have some inflammation of the nasal passages. Although more significantly is inflamed tonsil primarily on the right more than the left. I do not appreciate any abscesses. She is allergic to penicillin. Will go ahead and doxycycline. If the patient is now better she is going to call and we can then optimize her antibiotic therapy. The patient also go on Afrin. If she is no better she can also try small course of prednisone. She will call and we can also request additional imaging studies if no significant improvement noted. Also to note the patient did go to the hospital with an epigastric discomfort. workup also included a CT scan of the abdomen. Patient did have a dttnybcd-ka-myxhc hiatal hernia. Seven a lot of discomfort. Will go ahead and refer her to GI. [facility] Medical History (Updated 06/27/24 @ 23:31 by Wolf Rosario MD) Epigastric pain Allergies Low back pain Asthma-COPD overlap syndrome Tubular adenoma Diverticulosis of colon Tubular adenoma COPD (chronic obstructive pulmonary disease) Acute anxiety COPD exacerbation Allergic rhinitis Hypothyroid Asthma Asthma dependent on inhaled steroids Depression Anxiety Irritable bowel Acid reflux Diverticulosis large intestine w/o perforation or abscess w/o bleeding Surgical History H/O esophagogastroduodenoscopy (~12/2018) History of colonoscopy with polypectomy (~12/2018) History of mandibular surgery Hx of cholecystectomy Hx of tubal ligation Family History Maternal Aunt Pancreatic cancer Maternal Grandmother Diabetes Stroke Maternal Grandfather Diabetes Mother COPD (chronic obstructive pulmonary disease) Father Respiratory failure Social History Household Members: Spouse Household Members Other:: Lives with an 11-year-old granddaughter Housing: House Are you a primary daycare manager to a significant other at home: No Do you presently have visiting nurse or other home services: No Alcohol intake: never Patient Tobacco Use Status: Never used Tobacco e-Cigarette/Vaping Use: Never Used Second Hand Smoke Exposure: No service: No Current occupational status: retired Cognitive needs: No Hearing needs: No Vision needs: Yes (glasses) Review of Systems Const Denies fever(s) and Reports headache(s) Eyes Reports no additional complaints ENT Reports headache(s), Reports nasal congestion (Mild intermittent), Reports nasal discharge, Reports nasal obstruction, Reports sinus pain, Reports sinus pressure and Reports sore throat Card Denies chest pain, Denies irregular heart rhythm, Denies leg edema and Reports dyspnea on exertion Resp Reports as per HPI, Reports cough, Reports dyspnea on exertion and Reports wheezing GI Reports abdominal pain and Reports heartburn (Controlled with med) Reports no additional complaints Skin/Breast Reports system reviewed and no additional complaints, except as documented Neuro Reports no additional complaints and Reports headache(s) Psych Reports anxiety and Reports depression Aller/Immun Reports wheezing Physical Exam Vital Signs: Last Vital Signs Pulse 83 06/27/24 14:45 Pulse Ox 97 06/27/24 14:45 Oxygen Delivery Method Room Air 06/27/24 14:45 BMI result Body Mass Index 31.6 Const General: comfortable HEENT General nose exam: Abnormal mucous membranes and turbinates present erythematous Throat: Yes posterior oropharynx abnormal Neck Neck: Yes supple Chest Chest palpation & inspection: normal inspection of the chest Resp Effort & Inspection: normal respiratory effort and prolonged expiratory phase Auscultation: no wheezes and diminished lung sounds Cardio Heart sounds: S1 normal heart sound present and S2 normal heart sound present GI Palpation (GI): Soft to palpation Skin Rashes: rashes noted (eczema) Assessment & Plan Assessment & Plan (1) Sinusitis: Code(s): J32.9 - Chronic sinusitis, unspecified Category: Medical Qualifiers: Sinusitis location: unspecified location Chronicity: subacute Qualified Code(s): J01.90 - Acute sinusitis, unspecified (2) Asthma: Code(s): J45.909 - Unspecified asthma, uncomplicated Category: Medical Qualifiers: Asthma complication type: uncomplicated Asthma persistence: persistent Asthma severity: severe Qualified Code(s): J45.50 - Severe persistent asthma, uncomplicated (3) Asthma-COPD overlap syndrome: Comment: Code(s): J44.9 - Chronic obstructive pulmonary disease, unspecified Category: Medical (4) Allergies: Code(s): T78.40XA - Allergy, unspecified, initial encounter Category: Medical Qualifiers: Encounter type: initial encounter Qualified Code(s): T78.40XA - Allergy, unspecified, initial encounter (5) Allergic rhinitis: Code(s): J30.9 - Allergic rhinitis, unspecified Category: Medical Qualifiers: Allergic rhinitis seasonality: unspecified Allergic rhinitis trigger: unspecified Qualified Code(s): J30.9 - Allergic rhinitis, unspecified (6) Epigastric pain: Code(s): R10.13 - Epigastric pain Category: Medical (7) Esophageal hiatal hernia: Code(s): K44.9 - Diaphragmatic hernia without obstruction or gangrene Category: Medical Plan start Doxycycline start Afrin x 5 days Prednisone taper if no better Will call in 48 hrs if no better and will escalate abx and request xrays continue Trelegy 200 Nebulizer therapy: Duoneb BID short-acting beta agonist as needed continue Singulair continue nasal therapies barium swallow GI referral follow-up in 1-2 months Orders: Orders [place] barium swallow Today K21.9 - Gastro-esophageal reflux disease without esophagitis Referrals Gastroenterology Referral K44.9 - Diaphragmatic hernia without obstruction or gangrene, R10.13 - Epigastric pain Medications: New oxymetazoline 0.05% (Afrin (oxymetazoline)) 2 sprays intranasal Q12H PRN 22 mL 0RF nasal congestion 5 days doxycycline monohydrate 100 mg PO BID 28 tabs 0RF 14 days prednisone PO daily; Take 2 tabs daily x 7 days, then 1 tab daily x 7 days 28 tabs 0RF 14 days Coding Level of Care Code Est Pt Level 4 (45369) Diagnoses Subacute sinusitis, unspecified location J01.90 Sinusitis location: unspecified location Chronicity: subacute Severe persistent asthma without complication J45.50 Asthma complication type: uncomplicated Asthma persistence: persistent Asthma severity: severe Asthma-COPD overlap syndrome J44.9 Allergy, initial encounter T78.40XA Encounter type: initial encounter Allergic rhinitis, unspecified seasonality, unspecified trigger J30.9 Allergic rhinitis seasonality: unspecified Allergic rhinitis trigger: unspecified Epigastric pain R10.13 Esophageal hiatal hernia K44.9 Time Spent (min) 16
== END 2024-06-27 15:08 | disposition home or self-care (01) ==
PROVIDERS: PCP Internal Medicine; Visit Provider Hospitalist
DX: J01.90 Acute sinusitis, unspecified (principal); J45.50 Severe persistent asthma, uncomplicated; J44.9 Chronic obstructive pulmonary disease, unspecified; T78.40XA Allergy, unspecified, initial encounter; J30.9 Allergic rhinitis, unspecified; R10.13 Epigastric pain; K44.9 Diaphragmatic hernia without obstruction or gangrene
CPT/HCPCS: 99214

== ENCOUNTER → 2024-06-27 14:40 | Outpatient (BNVA) | payer MEDICARE, SELFPAY | PROVIDERS: PCP Internal Medicine; Visit Provider Hospitalist | DX: J45.50 Severe persistent asthma, uncomplicated (principal); J01.90 Acute sinusitis, unspecified; J44.9 Chronic obstructive pulmonary disease, unspecified; J30.9 Allergic rhinitis, unspecified; T78.40XA Allergy, unspecified, initial encounter; R10.13 Epigastric pain; K44.9 Diaphragmatic hernia without obstruction or gangrene | CPT/HCPCS: 99212 ==

== ENCOUNTER 2024-08-18 13:38 | Outpatient (AMB) | payer MEDICARE, SELFPAY ==
--- NOTE | 2024-08-18 13:49 | A.OFFVIS_ITS ---
Vital Signs 08/18/24 13:52 Height 5 ft 4 in Weight 182 lb 15.739 oz BMI 31.4 BP 118/70 Blood Pressure Location Lt brachial Position Sitting Pulse 73 Pulse Source Pulse Oximeter Pulse Oximetry (%) 99 Oxygen Delivery Method Room Air Intake Visit Reasons: Asthma Revenue Director Required: No Allergies animal dander Allergy (Mild, Verified 08/18/24 13:54) SHORTNESS OF BREATH ciprofloxacin [From Cipro] Allergy (Mild, Verified 08/18/24 13:54) RASH vancomycin [Vancomycin] Allergy (Mild, Verified 08/18/24 13:54) SHORTNESS OF BREATH amoxicillin [AMOXICILLIN] Allergy (Unknown, Verified 08/18/24 13:54) RASH Penicillins [PENICILLINS] Allergy (Unknown, Verified 08/18/24 13:54) RASH HPI Comments Details: The patient is a 69 year woman with a known history of asthma. Apparently the patient has had lifelong asthma. The last time that she did undergo pulmonary function studies was back in 2021 and he actually had more of a fixed obstructive defect consistent more severe COPD. Therefore she likely has developed asthma COPD overlap syndrome in view of her significant disease. The patient has been on multiple respiratory inhalers with only partial improvement of his symptoms. She is getting dyspnea even with minimal activity. Moderate severity. Does not feel like she is responding well to her current respiratory therapy and would like to further optimize her respiratory regimen. At this point is very reasonable to do so. We did talk about biologic therapies but I explained to her that is mainly for allergic asthma. We did review her blood work that she has had in the past and no significant evidence of any eosinophilia or elevations in the IgE. Will go ahead and repeat those specially to see if she is a candidate now. 08/18/2024 the patient is here for a pulmonary follow-up visit. The patient overall has been doing a lot better. The Trelegy inhaler has been affecting b eneficial. She really was doing very well until 2 days ago when she started developing again chest tightness and wheezing. She had to use her nebulizer her yesterday. The patient denies any chest congestion fevers or sick contacts. She did have blood work done in her IgE level was reasonable within normal limits and also her eosinophil level was just at the higher limit of normal of 300. the patient still may be a candidate for biologics if she continues to have worsening symptoms. But overall she has been doing well just prior to this last few days. So therefore will continue with the current therapy. She does complain for dyspnea on exertion. We will request PFTs and start Pulmonary rehab at this time. [facility] Medical History (Updated 06/27/24 @ 23:31 by Wolf Rosario MD) Epigastric pain Allergies Low back pain Asthma-COPD overlap syndrome Tubular adenoma Diverticulosis of colon Tubular adenoma COPD (chronic obstructive pulmonary disease) Acute anxiety COPD exacerbation Allergic rhinitis Hypothyroid Asthma Asthma dependent on inhaled steroids Depression Anxiety Irritable bowel Acid reflux Diverticulosis large intestine w/o perforation or abscess w/o bleeding Surgical History H/O esophagogastroduodenoscopy (~12/2018) History of colonoscopy with polypectomy (~12/2018) History of mandibular surgery Hx of cholecystectomy Hx of tubal ligation Family History Maternal Aunt Pancreatic cancer Maternal Grandmother Diabetes Stroke Maternal Grandfather Diabetes Mother COPD (chronic obstructive pulmonary disease) Father Respiratory failure Social History Household Members: Spouse Household Members Other:: Lives with an 11-year-old granddaughter Housing: House Are you a primary home care aide to a significant other at home: No Do you presently have visiting nurse or other home services: No Alcohol intake: never Patient Tobacco Use Status: Never used Tobacco e-Cigarette/Vaping Use: Never Used Second Hand Smoke Exposure: No service: No Current occupational status: retired Cognitive needs: No Hearing needs: No Vision needs: Yes (glasses) Review of Systems Const Denies fever(s) and Reports headache(s) Eyes Reports no additional complaints ENT Reports headache(s), Reports nasal congestion (Mild intermittent), Reports nasal discharge, Reports nasal obstruction, Reports sinus pain, Reports sinus pressure and Reports sore throat Card Denies chest pain, Denies irregular heart rhythm, Denies leg edema and Reports dyspnea on exertion Resp Reports as per HPI, Reports cough, Reports dyspnea on exertion and Reports wheezing GI Reports abdominal pain and Reports heartburn (Controlled with med) Reports no additional complaints Skin/Breast Reports system reviewed and no additional complaints, except as documented Neuro Reports no additional complaints and Reports headache(s) Psych Reports anxiety and Reports depression Aller/Immun Reports wheezing Physical Exam Vital Signs: Last Vital Signs Pulse 73 08/18/24 13:52 BP 118/70 08/18/24 13:52 Pulse Ox 99 08/18/24 13:52 Oxygen Delivery Method Room Air 08/18/24 13:52 BMI result Body Mass Index 31.4 Const General: comfortable HEENT General nose exam: Abnormal mucous membranes and turbinates present erythematous Throat: Yes posterior oropharynx abnormal Neck Neck: Yes supple Chest Chest palpation & inspection: normal inspection of the chest Resp Effort & Inspection: normal respiratory effort and No prolonged expiratory phase Auscultation: no wheezes and diminished lung sounds Cardio Heart sounds: S1 normal heart sound present and S2 normal heart sound present GI Palpation (GI): Soft to palpation Skin Rashes: rashes noted (eczema) Assessment & Plan Assessment & Plan (1) Asthma: Code(s): J45.909 - Unspecified asthma, uncomplicated Category: Medical Qualifiers: Asthma complication type: uncomplicated Asthma persistence: persistent Asthma severity: severe Qualified Code(s): J45.50 - Severe persistent asthma, uncomplicated (2) Asthma-COPD overlap syndrome: Comment: Code(s): J44.9 - Chronic obstructive pulmonary disease, unspecified Category: Medical (3) Allergies: Code(s): T78.40XA - Allergy, unspecified, initial encounter Category: Medical Qualifiers: Encounter type: initial encounter Qualified Code(s): T78.40XA - Allergy, unspecified, initial encounter (4) Allergic rhinitis: Code(s): J30.9 - Allergic rhinitis, unspecified Category: Medical Qualifiers: Allergic rhinitis seasonality: unspecified Allergic rhinitis trigger: unspecified Qualified Code(s): J30.9 - Allergic rhinitis, unspecified (5) Esophageal hiatal hernia: Code(s): K44.9 - Diaphragmatic hernia without obstruction or gangrene Category: Medical Plan continue Trelegy 200 Nebulizer therapy: Duoneb BID short-acting beta agonist as needed continue Singulair continue nasal therapies reflux diet GI follow up PFTs start Pulmonary rehab follow-up in 4-6 months Orders: Orders PFT pulmonary function test 08/18/24 J44.9 - Chronic obstructive pulmonary disease, unspecified Pulmonary Rehab 08/18/24 J44.9 - Chronic obstructive pulmonary disease, unspecified Coding Level of Care Code Est Pt Level 4 (27589) Diagnoses Severe persistent asthma without complication J45.50 Asthma complication type: uncomplicated Asthma persistence: persistent Asthma severity: severe Asthma-COPD overlap syndrome J44.9 Allergy, initial encounter T78.40XA Encounter type: initial encounter Allergic rhinitis, unspecified seasonality, unspecified trigger J30.9 Allergic rhinitis seasonality: unspecified Allergic rhinitis trigger: unspecified Esophageal hiatal hernia K44.9 Time Spent (min) 16
[2024-08-18 13:52] VITALS: BP 118/70; PULSE 73; O2SAT 99; BMI 31.4
== END 2024-08-18 14:08 | disposition home or self-care (01) ==
PROVIDERS: PCP Internal Medicine; Visit Provider Hospitalist
DX: J45.50 Severe persistent asthma, uncomplicated (principal); J44.9 Chronic obstructive pulmonary disease, unspecified; T78.40XA Allergy, unspecified, initial encounter; J30.9 Allergic rhinitis, unspecified; K44.9 Diaphragmatic hernia without obstruction or gangrene
CPT/HCPCS: 99214

== ENCOUNTER → 2024-08-18 13:38 | Outpatient (BNVA) | payer MEDICARE, SELFPAY | PROVIDERS: PCP Internal Medicine; Visit Provider Hospitalist | DX: J45.50 Severe persistent asthma, uncomplicated (principal); J44.9 Chronic obstructive pulmonary disease, unspecified; J30.9 Allergic rhinitis, unspecified; K44.9 Diaphragmatic hernia without obstruction or gangrene; T78.40XA Allergy, unspecified, initial encounter; Z79.51 Long term (current) use of inhaled steroids | CPT/HCPCS: 99212 ==

== ENCOUNTER 2024-09-07 09:31 | Outpatient (REF) | payer MEDICARE, SELFPAY ==
--- NOTE | ~2024-09-07 | FL_ITS ---
EXAMINATION: XR FLUOROSCOPY UPPER GI WITH AIR CLINICAL INFORMATION: Reflux. COMPARISON: None TECHNIQUE: Fluoroscopic air contrast upper GI examination was performed utilizing standard techniques with thin and thick barium and effervescent granules. Numerous spot images were obtained. FINDINGS: Lateral cine images of the oropharynx and hypopharynx demonstrate normal swallow mechanism with normal epiglottic inversion and soft palate elevation. There is laryngeal penetration present with thick barium. No tracheal penetration, glottic or subglottic aspiration identified. No nasopharyngeal reflux present. Hypopharyngeal structures appear normal without evidence of mass or diverticulum. There was no significant cricopharyngeal achalasia. Dual and single contrast images of the esophagus demonstrate normal caliber, contour, and mucosal pattern. No evidence of stricture, mass, or ulcerations identified. Esophageal peristalsis is mildly disorganized. A moderate-sized type I hiatal hernia is present. Severe gastroesophageal reflux is seen up to the thoracic inlet. Dual contrast and single contrast images of the stomach demonstrated a normal contour. There are multiple focal areas of contrast pooling in the body stomach along the greater curvature that may represent small mucosal erosions. No masses are present. Contrast freely passed into the gastric antrum and duodenal bulb without delay. Single and air-contrast images of the duodenal bulb demonstrate no abnormality. The duodenal sweep has a normal appearance, course, and mucosal fold appearance. The imaged proximal jejunum has a normal fold pattern and caliber. FLUOROSCOPY TIME: 4 minutes 48 seconds Number of Spot Images: 7 Number of Cine: 15 DOSE AREA PRODUCT: 2557 uGy-m2 (microgray-meter squared) FL/FL barium swallow IMPRESSION: 1. Laryngeal penetration with thick barium. No aspiration was observed. 2. Mildly disorganized esophageal peristalsis. 3. Moderate-sized type I hiatal hernia with severe gastroesophageal reflux. 4. Multiple focal areas of contrast pooling in the body of the stomach along the greater curvature that may represent small mucosal ulcerations. Recommend correlation with EGD. This procedure was performed by Jose De Jesus Zacarias PA-C, and supervised by Dr. Alonso Electronically signed by: Emigdio Alonso MD 09/08/2024 04:50 [facility]
== END 2024-09-07 09:32 | disposition home or self-care (01) ==
LOC: HO.XRAY 09:31
PROVIDERS: PCP Internal Medicine; Visit Provider Hospitalist
DX: K21.9 Gastro-esophageal reflux disease without esophagitis (principal)
CPT/HCPCS: 74220

== ENCOUNTER → 2024-09-07 09:32 | Outpatient (BNV) | payer MEDICARE, SELFPAY | PROVIDERS: PCP Internal Medicine; Visit Provider Physician Assistant Surgical | DX: K21.9 Gastro-esophageal reflux disease without esophagitis (principal) | CPT/HCPCS: 74246 ==

== ENCOUNTER → 2024-09-13 15:16 | Outpatient (BNVA) | payer MEDICARE, SELFPAY | PROVIDERS: PCP Internal Medicine; Visit Provider Internal Medicine | DX: Z23 Encounter for immunization (principal); K21.9 Gastro-esophageal reflux disease without esophagitis | CPT/HCPCS: 90471; 90656; 99212 ==

== ENCOUNTER 2024-09-26 10:00 | Outpatient (RCR) | payer MEDICARE, SELFPAY | END 2024-10-24 07:26 | disposition home or self-care (01) | LOC: HO.PR 10:00 | PROVIDERS: PCP Internal Medicine; Visit Provider Hospitalist | DX: J44.9 Chronic obstructive pulmonary disease, unspecified (principal) | CPT/HCPCS: 94618; 94625; 99212 ==

== ENCOUNTER 2024-10-10 09:14 | Day surgery (SDC) | payer MEDICARE, SELFPAY ==
[2024-10-06 12:58] VITALS: BMI 31.6
[2024-10-10] MEDS: Lactated Ringers 1,000 ML 100 ML IVCONT (09:40)
[2024-10-10 09:47] VITALS: BP 136/67; PULSE 62; RESP 18; TEMP 36.6; O2SAT 98
--- NOTE | 2024-10-10 10:30 | HO.ANESPROP2 ---
Documented by User: Ally Brown NP 10/09/24 08:32 HPI - Anesthesia Eval Consult details Narrative: 69yo F for Upper Endoscopy Pulmo optimized. Follows [facility] pulmo for asthma/COPD. Stable at 08/2024 office visit [facility] Active Problems Active Problems: All Active Problems Sinusitis (Acute) Epigastric pain (Acute) Asthma (Acute) Allergies (Acute) Low back pain (Acute) Over weight (Acute) Chronic diarrhea (Acute) Elevated alkaline phosphatase level (Acute) Asthma-COPD overlap syndrome (Acute) Polyarthralgia (Acute) Chondromalacia patellae of right knee (Acute) Knee pain (Acute) Tubular adenoma (Acute) Diverticulosis of colon (Acute) Diverticulitis (Acute) Ductal carcinoma in situ (DCIS) of left breast (Acute) COPD (chronic obstructive pulmonary disease) (Acute) Acute anxiety (Acute) COPD exacerbation (Acute) Allergic rhinitis (Acute) Asthma dependent on inhaled steroids (Acute) Depression (Acute) Anxiety (Acute) Irritable bowel (Acute) Acid reflux (Acute) Diverticulosis large intestine w/o perforation or abscess w/o bleeding (Acute) Past Medical History Medical History Epigastric pain Allergies Low back pain Asthma-COPD overlap syndrome Tubular adenoma Diverticulosis of colon Tubular adenoma COPD (chronic obstructive pulmonary disease) Acute anxiety COPD exacerbation Allergic rhinitis Hypothyroid Asthma Asthma dependent on inhaled steroids Depression Anxiety Irritable bowel Acid reflux Diverticulosis large intestine w/o perforation or abscess w/o bleeding Family History Family History Maternal Aunt Pancreatic cancer Maternal Grandmother Diabetes Stroke Maternal Grandfather Diabetes Mother COPD (chronic obstructive pulmonary disease) Father Respiratory failure Surgical History Surgical History H/O esophagogastroduodenoscopy (~12/2018) History of colonoscopy with polypectomy (~12/2018) History of mandibular surgery Hx of cholecystectomy Hx of tubal ligation Social History Social History Household Members: Spouse Household Members Other:: Lives with an 11-year-old granddaughter Housing: House Are you a primary caregivers non medical to a significant other at home: No Do you presently have visiting nurse or other home services: No Alcohol intake: never Patient Tobacco Use Status: Never used Tobacco e-Cigarette/Vaping Use: Never Used Second Hand Smoke Exposure: No Have you been hit, kicked, punched, or otherwise hurt by someone within the past year? If so, by whom?: No Are you DNR?: No Advance Directives: No Advance Directives Information Provided: Yes Recently lost weight without trying: No Nutrition Risks: No Nutritional Risk service: No Current occupational status: retired Cognitive needs: No Hearing needs: No Vision needs: Yes (glasses) Meds Allergies Allergy/AdvReac Type Severity Reaction Status Date / Time amoxicillin [AMOXICILLIN] Allergy Intermediate RASH Verified 10/10/24 09:32 Penicillins [PENICILLINS] Allergy Intermediate RASH Verified 10/10/24 09:32 animal dander Allergy Mild SHORTNESS Verified 10/10/24 09:32 OF BREATH ciprofloxacin [From Cipro] Allergy Mild RASH Verified 10/10/24 09:32 vancomycin [Vancomycin] Allergy Mild SHORTNESS Verified 10/10/24 09:32 OF BREATH Home Medications ?Medication ?Instructions ?Recorded ?Confirmed ?Last Taken ?Type cholecalciferol (vitamin D3) 50 50 mcg PO BID 07/30/20 10/06/24 Unknown History mcg (2,000 unit) capsule levothyroxine 100 mcg tablet 100 mcg PO DAILY 07/30/20 10/06/24 Unknown History acetaminophen 650 mg 650 mg PO Q8H PRN pain 10/07/20 10/06/24 Unknown History tablet,extended release citalopram 20 mg tablet 20 mg PO DAILY 01/03/24 10/06/24 Unknown History docusate sodium 100 mg capsule 200 mg PO BEDTIME PRN Constipation 01/03/24 10/06/24 Unknown History (Colace) hydroxyzine HCl 25 mg tablet 25 mg PO BID 01/03/24 10/06/24 Unknown History nebulizers 01/03/24 06/09/24 Unknown History topiramate 25 mg tablet 25 mg PO DAILY 10/06/24 10/06/24 Unknown History fluticasone fur. 200 mcg-umeclid 1 ea inhalation DAILY 10/10/24 10/10/24 10/10/24 History 62.5 mcg-vilant 25 mcg inhalat.powder (Trelegy Ellipta) Exam Height,Weight and Vital Signs: Height 5 ft 4 in Weight 83.461 kg Assessment and Plan Assessment Anesthesia Assessment: Chart Reviewed Documented by User: Jenni Ruiz DO 10/10/24 10:34 [facility] Past Medical History Medical History Epigastric pain Allergies Low back pain Asthma-COPD overlap syndrome Tubular adenoma Diverticulosis of colon Tubular adenoma COPD (chronic obstructive pulmonary disease) Acute anxiety COPD exacerbation Allergic rhinitis Hypothyroid Asthma Asthma dependent on inhaled steroids Depression Anxiety Irritable bowel Acid reflux Diverticulosis large intestine w/o perforation or abscess w/o bleeding Family History Family History Maternal Aunt Pancreatic cancer Maternal Grandmother Diabetes Stroke Maternal Grandfather Diabetes Mother COPD (chronic obstructive pulmonary disease) Father Respiratory failure Family history of problems with anesthesia: No Surgical History Surgical History H/O esophagogastroduodenoscopy (~12/2018) History of colonoscopy with polypectomy (~12/2018) History of mandibular surgery Hx of cholecystectomy Hx of tubal ligation History of Problems with Anesthesia: No Social History Social History Household Members: Spouse Household Members Other:: Lives with an 11-year-old granddaughter Housing: House Are you a primary caregivers non medical to a significant other at home: No Do you presently have visiting nurse or other home services: No Alcohol intake: never Patient Tobacco Use Status: Never used Tobacco e-Cigarette/Vaping Use: Never Used Second Hand Smoke Exposure: No Have you been hit, kicked, punched, or otherwise hurt by someone within the past year? If so, by whom?: No Are you DNR?: No Advance Directives: No Advance Directives Information Provided: Yes Recently lost weight without trying: No Nutrition Risks: No Nutritional Risk service: No Current occupational status: retired Cognitive needs: No Hearing needs: No Vision needs: Yes (glasses) Meds Allergies Allergy/AdvReac Type Severity Reaction Status Date / Time amoxicillin [AMOXICILLIN] Allergy Intermediate RASH Verified 10/10/24 09:32 Penicillins [PENICILLINS] Allergy Intermediate RASH Verified 10/10/24 09:32 animal dander Allergy Mild SHORTNESS Verified 10/10/24 09:32 OF BREATH ciprofloxacin [From Cipro] Allergy Mild RASH Verified 10/10/24 09:32 vancomycin [Vancomycin] Allergy Mild SHORTNESS Verified 10/10/24 09:32 OF BREATH Home Medications ?Medication ?Instructions ?Recorded ?Confirmed ?Last Taken ?Type cholecalciferol (vitamin D3) 50 50 mcg PO BID 07/30/20 10/06/24 Unknown History mcg (2,000 unit) capsule levothyroxine 100 mcg tablet 100 mcg PO DAILY 07/30/20 10/06/24 Unknown History acetaminophen 650 mg 650 mg PO Q8H PRN pain 10/07/20 10/06/24 Unknown History tablet,extended release citalopram 20 mg tablet 20 mg PO DAILY 01/03/24 10/06/24 Unknown History docusate sodium 100 mg capsule 200 mg PO BEDTIME PRN Constipation 01/03/24 10/06/24 Unknown History (Colace) hydroxyzine HCl 25 mg tablet 25 mg PO BID 01/03/24 10/06/24 Unknown History nebulizers 01/03/24 06/09/24 Unknown History topiramate 25 mg tablet 25 mg PO DAILY 10/06/24 10/06/24 Unknown History fluticasone fur. 200 mcg-umeclid 1 ea inhalation DAILY 10/10/24 10/10/24 10/10/24 History 62.5 mcg-vilant 25 mcg inhalat.powder (Trelegy Ellipta) Exam Exam Date and Time: 10/10/24 1030 Height,Weight and Vital Signs: Height 5 ft 4 in Weight 83.461 kg Vital Signs Temperature 97.9 F 10/10/24 09:47 Pulse Rate 62 10/10/24 09:47 Respiratory Rate 18 10/10/24 09:47 Blood Pressure 136/67 10/10/24 09:47 Pulse Oximetry 98 10/10/24 09:47 Oxygen Delivery Method Room Air 10/10/24 09:47 Temperature 97.9 F 10/10/24 09:47 Pulse Rate 62 10/10/24 09:47 Respiratory Rate 18 10/10/24 09:47 Blood Pressure 136/67 10/10/24 09:47 Pulse Oximetry 98 10/10/24 09:47 Oxygen Delivery Method Room Air 10/10/24 09:47 Airway Mallampati Class: III TM Dist: >3cm Neck ROM: Full Loose/Missing/Broken Teeth: Yes (several missing teeth) Heart: S1S2 Lungs: CTAB Assessment and Plan Assessment Anesthesia Assessment: Anesthesia Plan Discussed and Chart Reviewed Final Anesthetic Review Family History of Problems with Anesthesia: No History of Problems with Anesthesia: No NPO: Yes ASA Class: III Final Preanesthetic Review: No Changes in Pt Med Stat, Meds/Allgs Chart Reviewed, Consent Obtained/Reviewed and Anes Risks/Benef Reviewed Patient Risk: Intermediate Procedure Risk: Low Anesthetic Plan Anesthetic Plan: MAC: and Agree w/ Assess. and Plan Disposition: Standard PACU
--- NOTE | 2024-10-10 10:38 | MHC.SHP ---
Pre-Procedural Eval Section A - 24 Hr Update-Section A only Date of Service: 10/10/24 The patient is an INPATIENT: No Changes since office visit: No Cold of Flu in the past 2 weeks, No New Medical Problems, No Changes in Medication and No Patient answered all questions The patient has been examined within 24 hours of the surgical procedure. The History & Physical has been completed within 30 days and I have reviewed it.: Yes Section B - Complete if H&P > 30 days Chief Complaint: Epigastric pain,abnormal findings Allergies: Allergies Allergy/AdvReac Type Severity Reaction Status Date / Time amoxicillin [AMOXICILLIN] Allergy Intermediate RASH Verified 10/10/24 09:32 Penicillins [PENICILLINS] Allergy Intermediate RASH Verified 10/10/24 09:32 animal dander Allergy Mild SHORTNESS Verified 10/10/24 09:32 OF BREATH ciprofloxacin [From Cipro] Allergy Mild RASH Verified 10/10/24 09:32 vancomycin [Vancomycin] Allergy Mild SHORTNESS Verified 10/10/24 09:32 OF BREATH Plan I have reviewed the history and physical and performed a pertinent physical examination on my patient. No changes have occurred unless specified. Time Spent With Patient Time: Total time managing care of this patient today ____ minutes.
[2024-10-10 10:56] VITALS: BP 114/65; PULSE 69; RESP 16; TEMP 36.5; O2SAT 99
--- NOTE | 2024-10-10 11:08 | OP_ITS ---
DATE OF SERVICE: 10/10/2024 SURGEON: Delmar Zhang MD INDICATIONS: Abnormal x-ray of the GI tract. PREOPERATIVE DIAGNOSIS: POSTOPERATIVE DIAGNOSIS: PROCEDURE PERFORMED: Upper endoscopy with biopsy. ESTIMATED BLOOD LOSS: COMPLICATIONS: ANESTHESIA: Monitored anesthesia care. ASSISTANTS: SPECIMENS: DESCRIPTION OF PROCEDURE: A history and physical was performed. The risks and benefits of the procedure were explained to the patient and informed consent was obtained. The patient was placed in the left lateral decubitus position. The Olympus video gastroscope was introduced into the esophagus, stomach, and duodenum. Examination was performed and the scope was removed. She tolerated the procedure well and was returned to recovery area in stable condition. FINDINGS: Esophagus: The esophagus was normal. There was no esophagitis. Biopsies were obtained from the EG junction. There was a 5 cm hiatal hernia. Stomach: The stomach showed no evidence of masses, ulcers, or polyps. The antral biopsies were obtained to evaluate for H pylori. Duodenum: The duodenum was normal. IMPRESSION: 1. Hiatal hernia. 2. Gastroesophageal reflux disease. RECOMMENDATION: Follow up the biopsy results. MD ZAIDA Lake/ZAFAR / [phone]
[2024-10-10 11:11] VITALS: BP 133/68; PULSE 67; RESP 16; TEMP 36.5; O2SAT 98
--- OUTSIDE RECORDS SUMMARY | 2024-10-11 19:23 | XMS_ITS | Patient Health Record ---
Author Organization [facility] Address [address] [place] [address] Care Team Providers Care Annual Giving Director Name Role Phone FADYTRESANGITA Primary Care Provider Delmar Patel Jr Unavailable ALLERGIES No Known Allergies REASON FOR REFERRAL No Information MEDICATIONS Medication SIG (Take, Route, Frequency, Duration) Notes Start Date End Date Status Levothyroxine Sodium 100 MCG Oral for 30 Active Trelegy Ellipta 200-62.5-25 MCG/ACT Inhalation for 30 Act demi Montelukast Sodium 10 MG TAKE 1 TABLET BY MOUTH EVERY DAY AT BEDTIME Oral for 30 [id number],Unavaila ble Active Pantoprazole Sodium 40 MG TAKE 1 TABLET BY MOUTH EVERY DAY Oral for 90 Active Ventolin HFA 108 (90 Base) MCG/ACT INHALE 2 PUFFS EVERY 4 TO 6 HOURS NEEDED FOR SHORTNESS OF BREATH OR FOR WHEEZE Inhalation for 25 Active Topiramate 25 MG Oral for 30 A ctive IMMUNIZATIONS Vaccine Route Administration Date Status Comme nts Influenza Unknown 09/06/2024 Administered SOCIAL HISTORY Tobacco Use: Social History Observation Description Date Details (start date - stop date) Never Smoker NA - NA Sex Assigned At : Social History Observation Description Sex Assigned At Unknown Tobacco Use/Smoking Question Answer Notes Patient is a nonsmoker Alcohol Screen Question Answer Notes Did you have a drink containing alcohol in the p ast year? No Points 0 Interpretation Negative PROBLEMS Problem Type ICD Code Onset Dates Problem Status W/U Status Risk SNOMED Code Notes Problem Epigastric pain (R10.13) Active confirmed 05183954 Problem Abnormal UGI series (R93.3) Active confirmed [id number] VITAL SIGNS Temperature 98.6 degrees Fahrenheit 09/20/2024 Blood pressure diastolic 00 mm Hg 09/20/2024 Height 5 ft 4 in in 09/20/2024 Blood pressure systolic 000 mm Hg 09/20/2024 Weight 184 lbs 09/20/2024 BMI 31.58 kg/m2 09/20/2024 Encounters Encounter Location Date Provider Diagnosis [facility] [place] Outpatient [address] [place] [phone] 10/10/2024 Delmar Zhang Jr [facility] [address] [place] [phone] 09/20/2024 Delmar Zhang Jr Epigastric pain R10.13 and Abnormal UGI series R93.3 [facility] [address] [place] [phone] 07/18/2024 Delmar Zhang Jr ASSESSMENTS Encounter Date Diagnosis Assessment Notes Treatment Notes Treatment Clinical Notes 09/20/2024 Epigastric pain (ICD-10 - R10.13) Digestive diseases material was printed 09/20/2024 Abnormal UGI series (ICD-10 - R93.3) PLAN OF TREATMENT Future Test Test Name Order Date UPPER GI ENDOSCOPY 09/20/2024 Insurance Providers Payer Name Payer Address Payer Phone Subscriber Number Group Number Insured Name Patient Relationship to Insured Coverage Start Date Coverage End Date [facility] [address] [place] [phone] [id number] TONNY, IRIS Self - patient is the insured MEDICAL (GENERAL) HISTORY Medical History History ICD Code Asthma Hypothyroidism Anxiety/depression DCIS left breast status post lumpectomy, XRT, tamoxifen Diverticulosis/colon polyps, colonoscopy 01/17, tubular adenoma. EGD for GERD, 01/17, small hiatal hernia Surgical History Surgery Date(Month/Year) Mandibular surgery 1978 Tubal ligation Cholecystectomy
--- OUTSIDE RECORDS SUMMARY | 2024-10-11 19:23 | XMS_ITS ---
Author Organization [facility] Address [address] [place] [address] Care Team Providers Care Manager Clinical Informatics Name Role Phone FADYSANGITA Primary Care Provider Delmar Patel Jr [phone] REASON FOR VISIT epigastric pain,abnormal UGI series Encounters Encounter Location Date Provider Diagnosis [facility] Outpatient [address] [place], [place] [phone] 10/10/2024 Delmar Zhang Jr PLAN OF TREATMENT No Information
--- OUTSIDE RECORDS SUMMARY | 2024-10-11 19:23 | XMS_ITS ---
Author Organization [facility] Address [address] [place] [phone] Care Team Providers Care Shovel Logger Name Role Phone FADYSANGITA Primary Care Provider Ramona Zhang Jr, Demlar Purdy [phone] Encounters Encounter Location Date Provider Diagnosis [facility] [address] [place] [phone] 07/18/2024 Delmar Zhang Jr PLAN OF TREATMENT No Information
--- OUTSIDE RECORDS SUMMARY | 2024-10-11 19:23 | XMS_ITS ---
Author Organization [facility] Address [address] [place] [address] Care Team Providers Care Manager Heavy Duty Name Role Phone FADY, KARTIK Primary Care Provider Delmar Patel Jr Unavailable ALLERGIES No Known Allergies REASON FOR VISIT Patient presents today for abdominal pain MEDICATIONS Medication SIG (Take, Route, Frequency, Duration) Notes Start Date End Date Status Levothyroxine Sodium 100 MCG Oral for 30 Active Trelegy Ellipta 200-62.5-25 MCG/ACT Inhalation for 30 Act demi Montelukast Sodium 10 MG TAKE 1 TABLET BY MOUTH EVERY DAY AT BEDTIME Oral for 30 R53650,Unavaila ble Active Pantoprazole Sodium 40 MG TAKE 1 TABLET BY MOUTH EVERY DAY Oral for 90 Active Ventolin HFA 108 (90 Base) MCG/ACT INHALE 2 PUFFS EVERY 4 TO 6 HOURS NEEDED FOR SHORTNESS OF BREATH OR FOR WHEEZE Inhalation for 25 Active Topiramate 25 MG Oral for 30 A ctive SOCIAL HISTORY Tobacco Use: Social History Observation [...] Notes Problem Epigastric pain (R10.13) Active confirmed 88156599 Problem Abnormal UGI series (R93.3) Active confirmed 341975714 VITAL SIGNS BMI 31.58 kg/m2 09/20/2024 Blood pressure systolic 000 mm Hg 09/20/20 24 Blood pressure diastolic 00 mm Hg 024 Height 5 ft 4 in in 09/20/2024 Temperature 98.6 degrees Fahrenheit 09/20/20 24 Weight 184 lbs 09/20/2024 Encounters Encounter Location Date Provider Diagnosis [facility] [address] [place] [address] 09/20/2024 Delmar Zhang Jr Epigastric pain R10.13 and Abnormal UGI series R93.3 ASSESSMENTS Encounter Date Diagnosis Assessment Notes Treatment Notes Treatment Clinical Notes 09/20/2024 Epigastric pain (ICD-10 - R10.13) Digestive diseases material was printed 09/20/2024 Abnormal UGI series (ICD-10 - R93.3) PLAN OF TREATMENT Treatment Notes Assessment Notes Epigastric pain Digestive diseases m aterial was printed Future Test Test Name Order Date UPPER GI ENDOSCOPY 09/20/2024 Next Appt Details Follow Up: 1 Year, Reason: Progress Notes * Examination Category Sub-Category Detail Notes General Examination GENERAL APPEARANCE: in no ac [place] distress HEAD: normocephalic EYES: sclera non-icteric NECK/THYROID: no lymphadenopathy HEART: S1, S2 normal, no mu rmurs CHEST: normal shape and exp ansion LUNGS: clear to auscultatio n bilaterally ABDOMEN: soft, nontender, non distended, bowel sounds present, no organomegaly SKIN: anicteric EXTREMITIES: no clubbing, cyanosi s, or edema PSYCH: cognitive function i ntact ORAL CAVITY: mucosa moist
== END 2024-10-10 12:26 | disposition home or self-care (01) ==
PROVIDERS: PCP Internal Medicine; Visit Provider Internal Medicine Gastroenterology
PROC: 0DJ08ZZ Inspection of Upper Intestinal Tract, Via Natural or Artificial Opening Endoscopic (ICD-10-PCS; CPT 43235; principal; 2024-10-10 11:50)
DX: R10.13 Epigastric pain (principal); K21.9 Gastro-esophageal reflux disease without esophagitis; K44.9 Diaphragmatic hernia without obstruction or gangrene; J44.9 Chronic obstructive pulmonary disease, unspecified; J45.50 Severe persistent asthma, uncomplicated; J30.2 Other seasonal allergic rhinitis; F32.A Depression, unspecified; F41.9 Anxiety disorder, unspecified; Z79.51 Long term (current) use of inhaled steroids; Z79.899 Other long term (current) drug therapy; Z88.0 Allergy status to penicillin; Z88.1 Allergy status to other antibiotic agents; Z90.49 Acquired absence of other specified parts of digestive tract
CPT/HCPCS: 43239; 88305; 88313; 88342; J2003; J2704

== ENCOUNTER 2024-10-16 11:20 | Outpatient (REF) | payer MEDICARE, SELFPAY ==
--- OUTSIDE RECORDS SUMMARY | 2024-10-16 11:23 | XMS_ITS ---
Author Organization [facility] Address [address] [place] [address] Care Team Providers Care Test Center Manager Name Role Phone FADY, KARTIK Primary Care Provider Ramona Zhang Jr, Delmar Purdy [phone] REASON FOR VISIT epigastric pain Encounters Encounter Location Date Provider Diagnosis [facility] [address] [place] [phone] 10/16/2024 Delmar Zhang Jr PLAN OF TREATMENT No Information
--- OUTSIDE RECORDS SUMMARY | 2024-10-16 11:24 | XMS_ITS | Patient Health Record ---
Author Organization [facility] Address [address] [place] [address] Care Team Providers Care Trench Pipe Layer Name Role Phone FADY, KARTIK Primary Care Provider Delmar Patel Jr Unavailable [phone] ALLERGIES No Known Allergies RESULTS Component Value Reference Range Notes Pathology (Not yet reviewed by provider) Interpretation: Performing Lab:[facility], [address] [place] [phone] Notes/Report: REASON FOR REFERRAL No Information MEDICATIONS Medication SIG (Take, Route, Frequency, Duration) Notes Start Date End Date Status Ondansetron HCl 4 MG 1 tablet Orally every 8 hrs as needed vor nausea and vomiting for 10 days 10/13/2024 Active Levothyroxine Sodium 100 MCG Oral for 30 Active Trelegy Ellipta 200-62.5-25 MCG/ACT Inhalation for 30 Act demi Montelukast Sodium 10 MG TAKE 1 TABLET BY MOUTH EVERY DAY AT BEDTIME Oral for 30 [id number],Unavaila ble Active Pantoprazole Sodium 40 MG TAKE [...] Notes Problem Epigastric pain (R10.13) Active confirmed 99567808 Problem Abnormal UGI series (R93.3) Active confirmed 274299202 Problem Gastro-esophagea l reflux disease without esophagitis (K21.9) Active confirmed Gastro-esophage al reflux disease without esophagitis (493320970) VITAL SIGNS Temperature 98.6 degrees Fahrenheit 09/20/2024 Blood pressure diastolic 00 mm Hg 09/20/2024 Height 5 ft 4 in in 09/20/2024 Blood pressure systolic 000 mm Hg 09/20/2024 Weight 184 lbs 09/20/2024 BMI 31.58 kg/m2 09/20/2024 Encounters Encounter Location Date Provider Diagnosis [facility] Outpatient [address] [place] [phone] 10/10/2024 Delmar Zhang Jr Epigastric pain R10.13 ; Abnormal UGI series R93.3 and Gastro-esophageal reflux disease without esophagitis K21.9 [facility] [address] [place] [phone] 10/16/2024 Delmar Zhang Jr [facility] [address] [place] [phone] 09/20/2024 Delmar Zhang Jr Epigastric pain R10.13 and Abnormal UGI series R93.3 [facility] [address] [place] [phone] 07/18/2024 Delmar Zhang Jr [facility] [address] [place] [phone] 10/13/2024 Delmar Zhang Jr Nausea and vomiting, unspecified vomiting type R11.2 [facility] [address] [place] [phone] 10/13/2024 Delmar Zhang Jr ASSESSMENTS Encounter Date Diagnosis Assessment Notes Treatment Notes Treatment Clinical Notes 10/10/2024 Epigastric pain (ICD-10 - R10.13) 10/10/2024 Abnormal UGI series (ICD-10 - R93.3) 09/20/2024 Epigastric pain (ICD-10 - R10.13) Digestive diseases material was printed 09/20/2024 Abnormal UGI series (ICD-10 - R93.3) 10/13/2024 Nausea and vomiting, unspecified vomiting type (ICD-10 - R11.2) 10/10/2024 Gastro-esophageal reflux disease without esophagitis (ICD-10 - K21.9) PLAN OF TREATMENT Pending Test Test Name Order Date LIVER PROFILE 10/13/2024 LIPASE 10/13/2024 CBC w/o DIFF 10/13/2024 Pathology 10/10/2024 Future Test Test Name Order Date UPPER GI ENDOSCOPY 09/20/2024 Insurance Providers Payer Name Payer Address Payer Phone Subscriber Number Group Number Insured Name Patient Relationship to Insured Coverage Start Date Coverage End Date [facility] [address] Attn Claims RE[place] [id number] LION LANCASTER Self - patient is the insured MEDICAL (GENERAL) HISTORY Medical History History ICD Code Asthma Hypothyroidism Anxiety/depression DCIS left breast status post lumpectomy, XRT, tamoxifen Diverticulosis/colon polyps, colonoscopy 01/17, tubular adenoma. EGD for GERD, 01/17, small hiatal hernia Surgical History Surgery Date(Month/Year) Mandibular surgery 1978 Tubal ligation Cholecystectomy
--- OUTSIDE RECORDS SUMMARY | 2024-10-16 11:24 | XMS_ITS ---
Author Organization [facility] Address [address] [place] [address] Care Team Providers Care Delinquent Tax Collector Assistant Name Role Phone SANGITA SHRESTHA Primary Care Provider Ramona Zhang Jr, Delmar Purdy [phone] REASON FOR VISIT rx MEDICATIONS Medication SIG (Take, Route, Fr equency, Duration) Notes Start Date End Date Status Ondansetron HCl 4 MG 1 tablet Orally demetra ry 8 hrs as needed vor nausea and vomiting for 10 days 10/13/2024 Active Encounters Encounter Location Date Provider Diagnosis [facility] [address] [phone] 10/13/2024 Delmar Zhang Jr PLAN OF TREATMENT Medication Medication Name Sig Start Date Stop Date Notes Ondansetron HCl 4 MG 1 tablet Orally demetra ry 8 hrs as needed vor nausea and vomiting for 10 days 10/13/2024
--- OUTSIDE RECORDS SUMMARY | 2024-10-16 11:24 | XMS_ITS ---
Author Organization [facility] Address [address] [place] [phone] Care Team Providers Care Coke Wheeler Name Role Phone SANGITA SHRESTHA Primary Care Provider Delmar Patel Jr REASON FOR VISIT not feeling well MEDICATIONS Medication SIG (Take, Route, Fr equency, Duration) Notes Start Date End Date Status Ondansetron HCl 4 MG 1 tablet Orally demetra ry 8 hrs prn nausea for 10 days 10/13/2024 Active Encounters Encounter Location Date Provider Diagnosis [facility] [address] [address] 10/13/2024 Delmar Zhang Jr Nausea and vomiting, unspecified vomiting type R11.2 ASSESSMENTS Encounter Date Diagnosis Assessment Notes Treatment Notes Treatment Clinical Notes 10/13/2024 Nausea and vomiting, unspecified vomiting type (ICD-10 - R11.2) PLAN OF TREATMENT Medication Medication Name Sig Start Date Stop Date Notes Ondansetron HCl 4 MG 1 tablet Orally demetra ry 8 hrs prn nausea for 10 days 10/13/2024 Pending Test Test Name Order Date LIVER PROFILE 10/13/2024 LIPASE 10/13/2024 CBC w/o DIFF 10/13/2024
[2024-10-16 12:59] LABS: Hematocrit 38.1 % (37.0-47.0); Hemoglobin 12.1 g/dl (12.0-16.0); Mean Corpuscular HGB Conc 31.8 g/dl (31.0-35.0); Mean Corpuscular Hemoglobin 27.8 pg (27.0-33.0); Mean Corpuscular Volume 87.6 fL (80.0-98.0); Mean Platelet Volume 11.5 fL (9.4-12.3); Platelet Count 233 X10*3/uL (160-400); Red Blood Count 4.35 X10*6/uL (4.20-5.50); Red Cell Distribution Width 13.6 % (11.0-16.0); White Blood Count 7.6 X10*3/uL (4.8-10.8)
[2024-10-16 13:19] LABS: Alanine Aminotransferase 11 U/L (0-31); Albumin Level 3.8 g/dL (3.5-5.0); Alkaline Phosphatase 164 U/L (39-117); Aspartate Amino Transferase 17 U/L (5-31); Bilirubin Direct 0.2 mg/dL (0.0-0.5); Bilirubin Total 0.5 mg/dL (0.0-1.0); Lipase 17 U/L (8-78); Total Protein 6.8 g/dL (6.5-8.0)
== END 2024-10-16 11:21 | disposition home or self-care (01) ==
LOC: HO.LAB 11:20
PROVIDERS: Visit Provider Internal Medicine Gastroenterology
DX: R11.2 Nausea with vomiting, unspecified (principal)
CPT/HCPCS: 36415; 80076; 83690; 85027

== ENCOUNTER 2024-10-19 15:04 | Outpatient (AMB) | payer MEDICARE, SELFPAY ==
--- OUTSIDE RECORDS SUMMARY | 2024-10-19 15:05 | XMS_ITS ---
Author Organization [facility] Address [address] [place] [address] [address] [place] [address] Care Team Providers Care Medical Editor Name Role Phone SANGITA SHRESTHA Primary Care Provider Ramona Zhang Jr, Delmar Purdy REASON FOR VISIT labs and pathology Encounters Encounter Location Date Provider Diagnosis [facility] [address] [place] [address] [address] [place] [address] 10/17/2024 Delmar Zhang Jr PLAN OF TREATMENT Next Appt Details Provider Name:Delmar busby Jr, 12/20/2024 10:40:00 AM, [address] [place] [address], [address], [place], [address],
--- OUTSIDE RECORDS SUMMARY | 2024-10-19 15:05 | XMS_ITS ---
Author Organization [facility] Address [address] [place] [address] [place] [address] Care Team Providers Care Salvage Machine Operator Name Role Phone SANGITA SHRESTHA Primary Care Provider Ramona Zhang Jr, Delmar Purdy REASON FOR VISIT epigastric pain Encounters Encounter Location Date Provider Diagnosis [facility] [address] [place] [address] [address] [place] [address] 10/16/2024 Delmar Zhang Jr PLAN OF TREATMENT Next Appt Details Provider Name:Delmar busby Jr, 12/20/2024 10:40:00 AM, [address] [place] [address], [address], [place], [address],
--- OUTSIDE RECORDS SUMMARY | 2024-10-19 15:06 | XMS_ITS ---
Author Organization [facility] Address [address] [place] [address] [place] [address] Care Team Providers Care Real Estate Developer Name Role Phone SANGITA SHRESTHA Primary Care Provider Ramona Zhang Jr, Delmar Purdy [phone] REASON FOR VISIT rx MEDICATIONS Medication SIG (Take, Route, Fr equency, Duration) Notes Start Date End Date Status Ondansetron HCl 4 MG 1 tablet Orally demetra ry 8 hrs as needed vor nausea and vomiting for 10 days 10/13/2024 Active Encounters Encounter Location Date Provider Diagnosis [facility] [address] [place] [address] [place] [phone] 10/13/2024 Delmar Zhang Jr PLAN OF TREATMENT Medication Medication Name Sig Start Date Stop Date Notes Ondansetron HCl 4 MG 1 tablet Orally demetra ry 8 hrs as needed vor nausea and vomiting for 10 days 10/13/2024 Next Appt Details Provider Name:Delmar busby Jr, 12/20/2024 10:40:00 AM, [address] [place] [address], [address], [place], [address],
--- OUTSIDE RECORDS SUMMARY | 2024-10-19 15:06 | XMS_ITS | Patient Health Record ---
Author Organization [facility] Address [address] [place] [address] Care Team Providers Care Inserter Promotional Item Name Role Phone FADY, SANGITA Primary Care Provider Delmar Patel Jr Unavailable [phone] ALLERGIES No Known Allergies RESULTS Component Value Reference Range Notes Pathology Reviewed date:10/17/2024 03:41:31 PM Interpretation: Performing Lab:[facility] [place], [address] [place] [phone] Notes/Report: Complete Blood Count no Diff Reviewed date:10/17/2024 03:39:35 PM Interpretation: Performing Lab:[facility] [place], [address] [place] [phone] Notes/Report: White Blood Count 7.6 4.8-10.8 X10*3/uL Red Blood Count 4.35 4.20-5.50 X10*6/uL Hemoglobin 12.1 12.0-16.0 g/dl Hematocrit 38.1 37.0-47.0 % Mean Corpuscular Volume 87.6 80.0-98.0 fL Mean Corpuscular Hemoglobin 27.8 27.0-33.0 pg Mean Corpuscular HGB Conc 31.8 31.0-35.0 g/dl Red Cell Distribution Width 13.6 11.0-16.0 % Platelet Count 233 160-400 X10*3/uL Mean Platelet Volume 11.5 9.4-12.3 fL NRBC Pct Auto 0.0 0.0-0.2 /100WBC NRBC Abs Auto 0.000 0.0-0.012 X10*3/uL Liver Panel Reviewed date:10/17/2024 03:38:47 PM Interpretation: Performing Lab:[facility] [place], [address] [place] [phone] Notes/Report: Bilirubin Total 0.5 0.0-1.0 mg/dL Bilirubin Direct 0.2 0.0-0.5 mg/dL Aspartate Amino Transferase 17 5-31 U/L Alanine Aminotransferase 11 0-31 U/L Total Protein 6.8 6.5-8.0 g/dL Albumin Level 3.8 3.5-5.0 g/dL Alkaline Phosphatase 164 39-117 U/L Lipase Reviewed date:10/17/2024 03:39:42 PM Interpretation: Performing Lab:[facility] [place], [address] [place] [phone] Notes/Report: Lipase 17 8-78 U/L REASON FOR REFERRAL No Information MEDICATIONS Medication [...] EVERY DAY AT BEDTIME Oral for 30 S00091,Unavaila ble Active Pantoprazole Sodium 40 MG TAKE [...] Notes Problem Epigastric pain (R10.13) Active confirmed 36620363 Problem Abnormal UGI series (R93.3) Active confirmed 750139483 Problem Gastro-esophagea l reflux disease without esophagitis (K21.9) Active confirmed Gastro-esophage al reflux disease without esophagitis (506353026) VITAL SIGNS Temperature 98.6 degrees Fahrenheit 09/20/2024 Blood pressure diastolic 00 mm Hg 09/20/2024 Height 5 ft 4 in in 09/20/2024 Blood pressure systolic 000 mm Hg 09/20/2024 Weight 184 lbs 09/20/2024 BMI 31.58 kg/m2 09/20/2024 Encounters Encounter Location Date Provider Diagnosis [facility] [place] [address] [place] [phone] 10/10/2024 Delmar Zhang Jr Epigastric pain R10.13 ; Abnormal UGI series R93.3 and Gastro-esophageal reflux disease without esophagitis K21.9 [facility] [address] [place] [phone] 10/16/2024 Delmar Zhang Jr [facility] [address] [place] [address] 09/20/2024 Delmar Zhang Jr Epigastric pain R10.13 and Abnormal UGI series R93.3 [facility] [address] [place] [address] 07/18/2024 Delmar Zhang Jr [facility] [address] [place] [phone] 10/13/2024 Delmar Zhang Jr Nausea and vomiting, unspecified vomiting type R11.2 [facility] [address] [place] [phone] 10/13/2024 Delmar Zhang Jr [facility] [address] [place] [phone] 10/17/2024 Delmar Zhang Jr ASSESSMENTS Encounter Date Diagnosis [...] 10/13/2024 LIPASE 10/13/2024 CBC w/o DIFF 10/13/2024 Future Test Test Name Order Date UPPER GI ENDOSCOPY 09/20/2024 Next Appt Details Provider Name:Delmar busby Jr, 12/20/2024 10:40:00 AM, [address] [place] [address], [address], [place], [address], Insurance Providers Payer Name Payer Address Payer Phone Subscriber Number Group Number Insured Name Patient Relationship to Insured Coverage Start Date Coverage End Date [facility] [address] Attn Claims REID [place] [id number] LION LANCASTER Self - patient is the insured MEDICAL (GENERAL) HISTORY Medical History History ICD Code Asthma Hypothyroidism Anxiety/depression DCIS left breast status post lumpectomy, XRT, tamoxifen Diverticulosis/colon polyps, colonoscopy 01/17, tubular adenoma. EGD for GERD, 01/17, small hiatal hernia Surgical History Surgery Date(Month/Year) Mandibular surgery 1978 Tubal ligation Cholecystectomy
--- NOTE | 2024-10-19 15:17 | A.OFFPC_ITS ---
Vital Signs 10/19/24 15:18 Height 5 ft 4 in Weight 182 lb 4 oz BMI 31.3 BP 112/70 Blood Pressure Location Lt brachial Position Sitting Pulse 76 Pulse Source Pulse Oximeter Pulse Oximetry (%) 97 Oxygen Delivery Method Room Air Intake Visit Reasons: Shoulder and knee pain Intake Note: The patient is here for shoulder and left knee pain, possibly related to sciatica. The patient is also requesting a rheumatology referral for arthritis. Riverboat Master Required: No Accompanied by: Spouse Allergies amoxicillin [AMOXICILLIN] Allergy (Intermediate, Verified 10/19/24 15:34) RASH Penicillins [PENICILLINS] Allergy (Intermediate, Verified 10/19/24 15:34) RASH animal dander Allergy (Mild, Verified 10/19/24 15:34) SHORTNESS OF BREATH ciprofloxacin [From Cipro] Allergy (Mild, Verified 10/19/24 15:34) RASH vancomycin [Vancomycin] Allergy (Mild, Verified 10/19/24 15:34) SHORTNESS OF BREATH Medication List - Last Reconciled 10/19/24 by Fahad Gutierrez MD acetaminophen ER 650 mg PO Q8H PRN albuterol sulfate 90 mcg/actuation 2 puffs inhalation Q4-6H PRN budesonide 0.5 mg (2 mL) inhalation DAILY 30 days cholecalciferol (vitamin D3) 50 mcg PO BID citalopram 20 mg PO DAILY docusate sodium (Colace) 200 mg PO BEDTIME PRN tatquyyvkqz-zavavavpb-kxzqlzid 200-62.5-25 mcg (Trelegy Ellipta) 1 ea inhalation DAILY klglkvuevfc-xsmasithl-dxctgmgt 200-62.5-25 mcg (Trelegy Ellipta) 1 inh inhalation DAILY 30 days furosemide 40 mg PO DAILY hydrocortisone 2.5% (Procto-Med HC) 1 appl CO BID-QID PRN hydroxyzine HCl 25 mg PO BID ipratropium-albuterol 0.5 mg-3 mg(2.5 mg base)/3 mL 3 mL inhalation BID 30 days levothyroxine 100 mcg PO DAILY loperamide (Imodium A-D) 4 mg (2 x 2 mg) PO DAILY PRN montelukast (Singulair) 10 mg PO BEDTIME 30 days nebulizers As directed ondansetron 4 mg PO DAILY PRN 5 days oxymetazoline 0.05% (Afrin (oxymetazoline)) 2 sprays intranasal Q12H PRN 5 days pantoprazole 40 mg PO DAILY sucralfate 5 mL PO QID topiramate 25 mg PO DAILY Tobacco use date assessed: 09/13/24 Fall risk assessment: No Falls in past year Last assessed Fall Risk: 10/19/24 Dental Screening Dental Screen Date: 11/15/23 PFS Medical History Epigastric pain Allergies Low back pain Asthma-COPD overlap syndrome Tubular adenoma Diverticulosis of colon Tubular adenoma COPD (chronic obstructive pulmonary disease) Acute anxiety COPD exacerbation Allergic rhinitis Hypothyroid Asthma Asthma dependent on inhaled steroids Depression Anxiety Irritable bowel Acid reflux Diverticulosis large intestine w/o perforation or abscess w/o bleeding Surgical History H/O esophagogastroduodenoscopy (~12/2018) History of colonoscopy with polypectomy (~12/2018) History of mandibular surgery Hx of cholecystectomy Hx of tubal ligation Family History Maternal Aunt Pancreatic cancer Maternal Grandmother Diabetes Stroke Maternal Grandfather Diabetes Mother COPD (chronic obstructive pulmonary disease) Father Respiratory failure Social History Household Members: Spouse Household Members Other:: Lives with an 11-year-old granddaughter Housing: House Are you a primary rn long term care to a significant other at home: No Do you presently have visiting nurse or other home services: No Alcohol intake: never Patient Tobacco Use Status: Never used Tobacco e-Cigarette/Vaping Use: Never Used Second Hand Smoke Exposure: No service: No Current occupational status: retired Cognitive needs: No Hearing needs: No Vision needs: Yes (glasses) Questionnaire Thrive Questionnaire Date Thrive assessed: 11/15/23 LIAM-7 AMB Questionnaire LIAM-7 Date LIAM - 7 assessed: 11/15/23 Source: Developed by Drs. Jacob Velasquez, Maribel Du, Pablito Rajan and colleagues, with an educational adrian from [employer]. Physical exam (Primary Care) Vital Signs: Last Vital Signs Pulse 76 10/19/24 15:18 BP 112/70 10/19/24 15:18 Pulse Ox 97 10/19/24 15:18 Oxygen Delivery Method Room Air 10/19/24 15:18 BMI result Body Mass Index 31.3 Tobacco/Smoking Status: Tobacco use Status Tobacco use date assessed 09/13/24 10/19/24 15:25 Patient Tobacco Use Status Never used Tobacco 10/19/24 15:25 e-Cigarette/Vaping Use Never Used 10/19/24 15:25 Thrive Assessment: Date of Thrive Assessment Date Thrive assessed 11/15/23 10/19/24 15:25 Coding Level of Care Code Est Pt Level 4 (86681) Complex EM visit Add On G2211 Diagnoses Acid reflux K21.9 Knee pain M25.569 COPD exacerbation J44.1 Assessment & Plan Assessment & Plan (1) Acid reflux: Comment: Code(s): K21.9 - Gastro-esophageal reflux disease without esophagitis Category: Medical Plan: Endoscopy showed a hiatal hernia. On PPI. Encouraged to use Maalox in addition. (2) Knee pain: Code(s): M25.569 - Pain in unspecified knee Category: Medical Plan: Patient has extensive OA, involving left hip and knee. Rheumatology referral not appropriate. PT offered. Patient restarting her pulmonary rehab. She will do PT after pulmonary rehab is completed. (3) COPD exacerbation: Comment: ASTHMA/COPD , PREDNISONE 10 MG A DAY TO CONTINUE, FOR THE TIME BEING , UNTILL AFTER THE PFT . CONTINUE INCRUSE ELLIPTA 1 INHALATION DAILY. HAD ADVAIR 250/51 INHALATION B.I.D.. USE VENTOLIN 2 PUFFS Q 4-6 HOURS ONLY P.R.N. Code(s): J44.1 - Chronic obstructive pulmonary disease with (acute) exacerbation Category: Medical Plan: Not taking prednisone anymore. Continue pulmonary rehab. Plan History of Present Illness The patient is a 69-year-old female presenting with discomfort potentially related to a hiatal hernia and musculoskeletal pain due to arthritis. She had recently undergone an endoscopy which revealed a small hiatal hernia measuring two centimeters. The patient reports no ulcers were found during the procedure and biopsies indicated no significant abnormalities. She was prescribed pantoprazole and advised to use Gas-X, which has alleviated some discomfort but not completely. Her liver enzymes were noted to be slightly elevated, though they are decreasing over time. Historically, the patient took prednisone, which contributed to weight gain, but she reports a weight loss following cessation of this medication. The patient has arthritis, contributing to left hip pain, especially upon waking. She has discontinued physical activities like pulmonary rehabilitation due to gastrointestinal issues but plans to resume them. Sleep disturbances are also notable, with anxiety impeding her ability to rest. Social History - Formerly engaged in pulmonary rehabilitation but discontinued due to gastrointestinal discomfort. - Reports sleep disturbances and anxiety, hindering daily activities and requiring occasional external assistance for tasks like dressing. - Modifies diet to manage hiatal hernia symptoms, including avoiding coffee. Review of Systems - Gastrointestinal: Reports discomfort associated with food intake, relieved by pantoprazole and Gas-X. - Musculoskeletal: Reports left hip pain associated with arthritis. - Neurological: Reports anxiety affecting sleep. Physical Exam General: Cooperative and healthy appearing Nutritional Appearance: Well nourished Orientation/consciousness: Patient oriented x3 Limitations: No limitations Head: Normal to inspection General: Appearance normal, both eyes and all related structures Neck: Normal visual inspection Chest: Normal palpation of entire chest wall Respiratory: Normal respiratory effort Neurology: Patient oriented x3 Results - Labs: Elevated liver enzymes noted in recent blood tests. Plan - Continue pantoprazole for hiatal hernia. Consider the addition of Melox if discomfort persists. - Monitor liver enzymes periodically to ensure normalization. - Resume pulmonary rehabilitation to improve musculoskeletal strength. - Reevaluate pain management strategies for arthritis, considering benefits and gastrointestinal risks. - Consider melatonin for sleep disturbances due to anxiety before contemplating prescription medications. - Follow up in three months to assess management's effectiveness and make necessary adjustments. Patient was informed and verbally consented to the use of an ambient scribe for clinic note documentation during this visit. Discussion Notes I discussed with Ms. Santizo her current discomfort related to a small hiatal hernia and musculoskeletal pain due to arthritis. We reviewed the findings from her recent endoscopy and current medication regimen. I advised continuation of pantoprazole and exploring Melox for additional relief. We also discussed her slightly elevated liver enzymes, noting they are trending downwards. It is recommended she resumes pulmonary rehabilitation, which may help with muscle strength and alleviating arthritis-related discomfort. For sleep disturbances largely due to anxiety, I suggested melatonin as an initial approach. A follow- up appointment in three months was advised to monitor her progress and make any necessary adjustments to her care plan. Patient Instructions - Continue taking pantoprazole as prescribed for hiatal hernia. - Use Melox if additional discomfort relief is needed. - Resume pulmonary rehabilitation exercises. - Consider melatonin for sleep support. - Monitor liver enzyme levels as instructed. - Follow up in three months for reassessment of symptoms and management.
[2024-10-19 15:18] VITALS: BP 112/70; PULSE 76; O2SAT 97; BMI 31.3
== END 2024-10-19 15:40 | disposition home or self-care (01) ==
PROVIDERS: PCP Internal Medicine; Visit Provider Internal Medicine
DX: K21.9 Gastro-esophageal reflux disease without esophagitis (principal); M25.569 Pain in unspecified knee; J44.1 Chronic obstructive pulmonary disease with (acute) exacerbation

== ENCOUNTER → 2024-10-19 15:04 | Outpatient (BNVA) | payer MEDICARE, SELFPAY | PROVIDERS: PCP Internal Medicine; Visit Provider Internal Medicine | DX: K21.9 Gastro-esophageal reflux disease without esophagitis (principal); J44.1 Chronic obstructive pulmonary disease with (acute) exacerbation; M25.562 Pain in left knee | CPT/HCPCS: 99212 ==

== ENCOUNTER 2024-10-21 02:13 | Emergency (ER) | payer MEDICARE, SELFPAY ==
[2024-10-21 02:18] VITALS: BP 127/77; PULSE 73; RESP 17; TEMP 36.4; O2SAT 98; BMI 31.2
--- NOTE | 2024-10-21 06:13 | PC.NURSE ---
sanitation truck cleaner at bedside. pt a&ox4, respirations even and unlabored. pt reporting x4 days of left sided upper leg pain radiating down the leg into the foot. pt reports the pain is sharp and makes it so she is unable to walk. pt denies any urinary symptoms at this time.
[2024-10-21 06:18] VITALS: BP 157/51; PULSE 69; RESP 15; TEMP 36.6; O2SAT 96
--- NOTE | 2024-10-21 07:05 | ED_ITS ---
HPI - Extremity Problem General Chief complaint: Extremity Problem Stated complaint: leg pain Time Seen by Provider: 10/21/24 06:38 Source: patient Mode of arrival: ambulatory Limitations: no limitations History of Present Illness ED Provider: Dr. Hong Davis HPI Narrative: 69-year-old female with a history of asthma, COPD GERD, anxiety, diverticulitis who presents emergency department for evaluation by lower extremity pain times years with increased pain in the left lower extremity x4 days. The patient states that she was had pain in both legs mainly in her knees for many years. She states over the last 4 days however she was had increased pain in her left lower back with pain radiating down the back of her leg to her foot. She also feels like the left leg is weak and she was having increased pain when she walks. Patient denied any loss of bowel or bladder control. She denied fever, chills, weight loss or weight gain. The patient states that the pain is severe in his 08/10 therefore she came to the emergency department for evaluation. She was driven to the emergency department by her . Patient was seen by her PCP and diagnosed with sciatica. She was not started on any new medications but was offered physical therapy. Patient states she had an endoscopy 2 weeks prior and does participate in a pulmonary rehab program where she exercises however she was not done this for 2 weeks. She denies any recent injury. Related Data Home Medications ?Medication ?Instructions ?Recorded ?Confirmed cholecalciferol (vitamin D3) 50 50 mcg PO BID 07/30/20 10/06/24 mcg (2,000 unit) capsule levothyroxine 100 mcg tablet 100 mcg PO DAILY 07/30/20 10/06/24 acetaminophen 650 mg 650 mg PO Q8H PRN pain 10/07/20 10/06/24 tablet,extended release citalopram 20 mg tablet 20 mg PO DAILY 01/03/24 10/06/24 docusate sodium 100 mg capsule 200 mg PO BEDTIME PRN Constipation 01/03/2410/06 (Colace) hydroxyzine HCl 25 mg tablet 25 mg PO BID 01/03/24 10/06/24 nebulizers 01/03/24 06/09/24 topiramate 25 mg tablet 25 mg PO DAILY 10/06/24 10/06/24 fluticasone fur. 200 mcg-umeclid 1 ea inhalation DAILY 10/10/24 10/10/24 62.5 mcg-vilant 25 mcg inhalat.powder (Trelegy Ellipta) Previous Rx's ?Medication ?Instructions ?Recorded hydrocortisone 2.5 % topical cream 1 appl [place] BID-QID PRN hemorrhoids 07/09/22 with perineal applicator #30 grams (Procto-Med HC) montelukast 10 mg tablet 10 mg PO BEDTIME 30 days #30 tabs 01/03/24 (Singulair) furosemide 40 mg tablet 40 mg PO DAILY #30 tabs 02/14/24 budesonide 0.5 mg/2 mL suspension 0.5 mg (2 mL) inhalation DAILY 30 03/10/24 for nebulization days #60 mL ipratropium 0.5 mg-albuterol 3 mg 3 ml inhalation BID severe 03/10/24 (2.5 mg base)/3 mL nebulization copd/asthma 30 days #180 mL soln loperamide 2 mg tablet (Imodium 4 mg (2 x 2 mg) PO DAILY PRN loose 05/19/24 A-D) stool #10 tabs ondansetron 4 mg disintegrating 4 mg PO DAILY PRN nausea and 05/19/24 tablet vomiting 5 days #10 tabs sucralfate 100 mg/mL oral 5 ml PO QID #200 mL 06/02/24 suspension pantoprazole 40 mg tablet,delayed 40 mg PO DAILY #30 tabs 06/12/24 release oxymetazoline 0.05 % nasal spray 2 spray intranasal Q12H PRN nasal 06/27/24 (Afrin (oxymetazoline)) congestion 5 days #22 mL albuterol sulfate 90 mcg/actuation 2 puff inhalation Q4-6H PRN 09/13/24 aerosol inhaler shortness of breath or wheezing #6.7 grams fluticasone fur. 200 mcg-umeclid 1 inh inhalation DAILY 30 days #60 09/13/24 62.5 mcg-vilant 25 mcg ea inhalat.powder (Trelegy Ellipta) morphine 15 mg immediate release 15 mg PO Q8H PRN pain #10 tabs 10/21/24 tablet prednisone 10 mg tablet 10 mg PO DIRECTED #42 tabs 10/21/24 Allergies Allergy/AdvReac Type Severity Reaction Status Date / Time amoxicillin [AMOXICILLIN] Allergy Intermediate RASH Verified 10/21/24 02:21 Penicillins [PENICILLINS] Allergy Intermediate RASH Verified 10/21/24 02:21 animal dander Allergy Mild SHORTNESS Verified 10/21/24 02:21 OF BREATH ciprofloxacin [From Cipro] Allergy Mild RASH Verified 10/21/24 02:21 vancomycin [Vancomycin] Allergy Mild SHORTNESS Verified 10/21/24 02:21 OF BREATH Review of Systems Review of Systems: Yes all other systems are reviewed and are negative [facility] Past Medical History [facility] Narrative: Social history: She was . She denies tobacco and alcohol use. She denies drug use. Medical History Epigastric pain Allergies Low back pain Asthma-COPD overlap syndrome Tubular adenoma Diverticulosis of colon Tubular adenoma COPD (chronic obstructive pulmonary disease) Acute anxiety COPD exacerbation Allergic rhinitis Hypothyroid Asthma Asthma dependent on inhaled steroids Depression Anxiety Irritable bowel Acid reflux Diverticulosis large intestine w/o perforation or abscess w/o bleeding Surgical History H/O esophagogastroduodenoscopy (~12/2018) History of colonoscopy with polypectomy (~12/2018) History of mandibular surgery Hx of cholecystectomy Hx of tubal ligation Family History Family History Maternal Aunt Pancreatic cancer Maternal Grandmother Diabetes Stroke Maternal Grandfather Diabetes Mother COPD (chronic obstructive pulmonary disease) Father Respiratory failure Social History Social History Household Members: Spouse Household Members Other:: Lives with an 11-year-old granddaughter Housing: House Are you a primary janitor caretaker to a significant other at home: No Do you presently have visiting nurse or other home services: No Alcohol intake: never Patient Tobacco Use Status: Never used Tobacco Smoked in Last 30 Days: No e-Cigarette/Vaping Use: Never Used Second Hand Smoke Exposure: No Use of substances other than those prescribed or required for medical reasons: No Advance Directives: No Do you have a plan to hurt others: No Plan service: No Current occupational status: retired Cognitive needs: No Hearing needs: No Vision needs: Yes (glasses) Physical Exam Vital Signs: Vital Signs: Last Vital Signs Temp 97.9 F 10/21/24 08:24 Pulse 65 10/21/24 08:24 Resp 18 10/21/24 08:24 BP 133/69 10/21/24 08:24 Pulse Ox 100 10/21/24 08:24 O2 Del Method Room Air 10/21/24 08:24 BMI result Body Mass Index 31.2 Vital signs revealed an elevated blood pressure of 157/51 Exam: General: Awake, alert in no distress Head: Normocephalic, atraumatic EENT: PERRL, Lids normal, sclera normal, conjunctiva normal, nose normal , ears normal, throat without erythema or exudates Neck: Supple, no adenopathy Lung: breath sounds symmetric, no wheezing, rales or rhonchi Chest: symmetric movement, nontender Heart: regular rate and rhythm, normal S1, S2 no murmurs or rubs Abdomen: soft, non-tender, nondistended, normal bowel sounds Back: [id number]-cj-ostxoozr vertebral tenderness in the lower thoracic and lumbar vertebrae with no localizing point tenderness, patient does have tenderness palpation over the left lumbar sacral muscles with no spasm. Patient has a positive straight leg raise on the left but a negative straight leg raise on the right. Patient was able to hold both legs up against gravity but does have pain with holding up the left leg. Patient has 2+ patellar reflexes and 1+ ankle reflexes bilaterally symmetric. Extremities: no deformities, moves all extremities symmetrically Neuro: Awake, alert, oriented, normal speech, cranial nerves intact, moves all extremities symmetrically Psych: Pleasant, cooperative Medications Administered Discontinued Medications Generic Name Dose Route Start Last Admin Trade Name Echo PRN Reason Stop Dose Admin Morphine Sulfate 4 mg 10/21/24 07:04 10/21/24 07:15 Morphine Sulfate 4 Mg/Ml Cartridge IVPUSH 10/21/24 07:05 4 mg ONCE STA Administration Protocol Prednisone 40 mg 10/21/24 07:04 10/21/24 07:15 Prednisone 20 Mg Tablet PO 10/21/24 07:05 40 mg ONCE ONE Administration Medical Decision Making Medical Decision Making [facility] Narrative: 69-year-old female with a history of asthma, COPD GERD, anxiety, diverticulitis who presents emergency department for evaluation by lower extremity pain times years with increased pain in the left lower extremity x4 days. The left lower extremity pain starts in the lower back and hip area and radiates down the back of her leg to her foot. She has a positive straight leg raise on the left but a negative on the right. She does have pain with palpation left paraspinal lumbar sacral muscles with no spasm and she also has tenderness palpation of her lower thoracic and lumbar vertebrae with no localizing point tenderness. Patient has symmetric strength in both lower extremities with normal reflexes in both lower extremities. Patient's pain is 10/10 in his not been relieved by taking oral Tylenol. Differential diagnosis: ?Includes but is not limited to lumbar sacral muscle spr ain, degenerative disc disease, degenerative disease of the vertebrae, left a sciatica, cauda equina syndrome Patient was initially treated with the following: Morphine 4 mg IV, prednisone 40 mg orally Course: 07:12 Patient's presentation is consistent with sciatica, most likely caused by degenerative disc or joint disease given her age. I did discuss this with her. The patient's pain is 10/10 therefore she was given morphine IV and prednisone orally. Advised to continue taking Tylenol 500 mg every 6 hours as needed for pain. She was prescribed prednisone 40 mg for 5 days and a tapering course 1 pill every 2 days. She was also prescribed morphine 15 mg every 8 hours as needed for pain not relieved by Tylenol and morphine. She was advised to apply ice for 15 minutes to her lower back and then 1 hour later to apply heating pad on low. She was advised to do this 4 to 6 times a day. Patient was also advised to follow up with her PCP and to pursue physical therapy as an outpatie nt for pain reduction. 10:15 Patient did get some improvement with the 1st dose of morphine, she was given a 2nd dose morphine 4 mg IV and then discharged home Admission/Observation Consideration of admission/observation: Escalation of care including admission/observation considered (No) Prescription Management I considered prescription management with: Pain Medication (Morphine) and Other (Anti-inflammatory steroids: Prednisone) Chronic Conditions Patient?s care impacted by: Other (COPD, GERD) Discharge Plan Discharge Clinical Impression: Acute left-sided back pain with sciatica Patient Disposition: Home, Self-Care Instructions: Sciatica (ED) Additional Instructions: Your physical examination and description of your pain (pain radiating down the back of your left leg to your foot) he was consistent with inflammation of the sciatic nerve. This is often caused by arthritis or disc disease in your lower back causing inflammation around the sciatic nerve. Take prednisone 10 mg pills, f4 pills once a day for 5 days decrease by 1 pill every 2 days until you complete the prescription. While you ?are taking prednisone, do not take any NSAIDs (Motrin, Advil, ibuprofen, Aleve, naproxen). Take ibuprofen 200 mg pills, 2 pills every 6 hours as needed for pain. Take Tylenol (acetaminophen) 2 pills every 6 hours as needed for pain. For pain not relieved by ibuprofen or Tylenol take morphine 15 mg pills, 1 pill every 6 hours as needed for pain. This medication will make you sleepy, do not drive or work while taking this medication. Morphine is a narcotic medication and can be addicting. If you are concerned about addiction you can ask the pharmacist for less pills or do not get this prescription filled. Take Metamucil 1 tsp in 8 oz of water once a day for 2 weeks to try to prevent constipation that can be caused by morphine. Increase your fluid intake as well while your on morphine to help prevent constipation Apply ice for 15 minutes and then after 1 hour apply a heating pad on low for 15 minutes to your lower back. Do this 4 to 6 times a day for the next 3-4 days. Follow your PCP's instructions and get into physical therapy to help reduce the pain in your lower back. Follow-up with your doctor in 2 days. Please return to the emergency department if your symptoms get worse or if you develop any symptoms that are concerning to you. Prescriptions: New prednisone 10 mg tablet 10 mg PO DIRECTED Qty: 42 0RF Rx Instructions: Day 1 through 5 take 4 pills then decrease by 1 pill every 2 days until you complete prescription morphine 15 mg tablet 15 mg PO Q8H PRN (Reason: pain) Qty: 10 0RF Rx Instructions: Partial Fill upon patient request. No Action sucralfate 100 mg/mL suspension 5 ml PO QID Qty: 200 0RF Rx Instructions: swish in mouth and swallow; use after food/drink pantoprazole 40 mg tablet,delayed release (DR/EC) 40 mg PO DAILY Qty: 30 2RF docusate sodium [Colace] 100 mg capsule 200 mg PO BEDTIME PRN (Reason: Constipation) ondansetron 4 mg tablet,disintegrating 4 mg PO DAILY PRN (Reason: nausea and vomiting) 5 Days Qty: 10 0RF loperamide [Imodium A-D] 2 mg tablet 4 mg PO DAILY PRN (Reason: loose stool) Qty: 10 0RF topiramate 25 mg tablet 25 mg PO DAILY Trelegy Ellipta 200-62.5-25 mcg blister with device 1 ea inhalation DAILY furosemide 40 mg tablet 40 mg PO DAILY Qty: 30 0RF cholecalciferol (vitamin D3) 50 mcg (2,000 unit) capsule 50 mcg PO BID levothyroxine 100 mcg tablet 100 mcg PO DAILY acetaminophen 650 mg tablet extended release 650 mg PO Q8H PRN (Reason: pain) hydrocortisone [Procto-Med HC] 2.5 % cream with perineal applicator 1 appl [place] BID-QID PRN (Reason: hemorrhoids) Qty: 30 3RF (DME) nebulizers Misc See Rx Instructions .Route Rx Instructions: As directed hydroxyzine HCl 25 mg tablet 25 mg PO BID citalopram 20 mg tablet 20 mg PO DAILY montelukast [Singulair] 10 mg tablet 10 mg PO BEDTIME 30 Days Qty: 30 11RF oxymetazoline [Afrin (oxymetazoline)] 0.05 % spray,non-aerosol 2 spray intranasal Q12H PRN (Reason: nasal congestion) 5 Days Qty: 22 0RF budesonide 0.5 mg/2 mL suspension for nebulization 0.5 mg inhalation DAILY 30 Days Qty: 60 5RF ipratropium-albuterol 0.5 mg-3 mg(2.5 mg base)/3 mL solution for nebulization 3 ml inhalation BID 30 Days Qty: 180 8RF albuterol sulfate 90 mcg/actuation HFA aerosol inhaler 2 puff inhalation Q4-6H PRN (Reason: shortness of breath or wheezing) Qty: 6.7 11RF Trelegy Ellipta 200-62.5-25 mcg blister with device 1 inh inhalation DAILY 30 Days Qty: 60 12RF Print Language: Palestinian
[2024-10-21] MEDS: Morphine Sulfate 4 MG/ML CARTRIDGE IVPUSH ×2 (07:15→10:23)
[2024-10-21] MEDS: predniSONE 20 MG TABLET 40 MG PO (07:15)
--- NOTE | 2024-10-21 07:16 | PC.NURSE ---
a&ox3. vss and up to date. pt presents to the ED c/o worsening left leg pain x 4 days. pt reports seeing primary care who recommended for her to go to physical therapy but the pain has increased so much that the pt wanted to come in and be evaluated. pt reports independent w/ ADLs - no use of assistive devices needed baseline. pt reports unable to walk d/t 10/10 pain. pt reports pain starts in left hip and radiates down entire leg. pt reports intermittent numbness/tingling - mostly at night. pt denies injury/trauma. pt seen by MD/aware of plan moving forward. 20gIV placed in the left AC - medication administered per provider order. effectiveness pending. no sob/wob noted. respirations even/unlabored. plan of care ongoing. call vera placed within reach.
[2024-10-21 08:24] VITALS: BP 133/69; PULSE 65; RESP 18; TEMP 36.6; O2SAT 100
[2024-10-21 10:23] VITALS: BP 141/80; PULSE 66; RESP 16; TEMP 36.5; O2SAT 100
[2024-10-21 10:37] VITALS: BP 141/80; PULSE 66; RESP 16; TEMP 36.5; O2SAT 100
== END 2024-10-21 10:38 | disposition home or self-care (01) ==
PROVIDERS: Emergency Provider Emergency Medicine Emergency Medical Services; PCP Internal Medicine
DX: M54.42 Lumbago with sciatica, left side (principal); M79.605 Pain in left leg
CPT/HCPCS: 96374; 96376; 99284; J2270

== ENCOUNTER 2024-11-11 04:24 | Emergency (ER) | payer MEDICARE, SELFPAY ==
--- NOTE | ~2024-11-11 | XR_ITS ---
CLINICAL HISTORY: pain difficulty with movement 3 view left shoulder Comparison: None Findings: Bones intact. No dislocations. No significant arthritic change. No erosions. No radiopaque foreign body. IMPRESSION: 1. No acute findings This document has been electronically signed by: Hipolito Kothari MD on 11/11/2024 05:03:18
[2024-11-11 04:35] VITALS: BP 124/75; PULSE 84; RESP 18; TEMP 36.9; O2SAT 97; BMI 31.0
--- OUTSIDE RECORDS SUMMARY | 2024-11-11 05:09 | XMS_ITS | Patient Health Record ---
Author Organization [facility] Address [address] [place] [address] Care Team Providers Care Lmsw Name Role Phone FADY, SANGITA Primary Care Provider Delmar Patel Jr Unavailable ALLERGIES No Known Allergies RESULTS Component Value Reference Range Notes Pathology Reviewed date:10/17/2024 03:41:31 PM Interpretation: Performing Lab:[facility], [address] [place] [phone] Notes/Report: Complete Blood Count no Diff Reviewed date:10/17/2024 03:39:35 PM Interpretation: Performing Lab:[facility], [address] [place] [phone] Notes/Report: White Blood Count 7.6 4.8-10.8 X10*3/uL [...] Panel Reviewed date:10/17/2024 03:38:47 PM Interpretation: Performing Lab:[facility], [address] [place] [phone] Notes/Report: Bilirubin Total 0.5 0.0-1.0 mg/dL Bilirubin Direct 0.2 0.0-0.5 mg/dL Aspartate Amino Transferase 17 5-31 U/L Alanine Aminotransferase 11 0-31 U/L Total Protein 6.8 6.5-8.0 g/dL Albumin Level 3.8 3.5-5.0 g/dL Alkaline Phosphatase 164 39-117 U/L Lipase Reviewed date:10/17/2024 03:39:42 PM Interpretation: Performing Lab:[facility], [address] [place] [phone] Notes/Report: Lipase 17 8-78 U/L REASON FOR [...] EVERY DAY AT BEDTIME Oral for 30 [id number],Unavaila ble Active Pantoprazole Sodium 40 MG TAKE [...] Notes Problem Epigastric pain (R10.13) Active confirmed 53320847 Problem Abnormal UGI series (R93.3) Active confirmed 723296901 Problem Gastro-esophagea l reflux disease without esophagitis (K21.9) Active confirmed Gastro-esophage al reflux disease without esophagitis (481743871) VITAL SIGNS Temperature 98.6 degrees Fahrenheit 09/20/2024 Blood pressure diastolic 00 mm Hg 09/20/2024 Height 5 ft 4 in in 09/20/2024 Blood pressure systolic 000 mm Hg 09/20/2024 Weight 184 lbs 09/20/2024 BMI 31.58 kg/m2 09/20/2024 Encounters Encounter Location Date Provider Diagnosis [facility] [place] Outpatient [address] [place] [phone] 10/10/2024 Delmar Zhang Jr Epigastric pain R10.13 ; Abnormal UGI series R93.3 and Gastro-esophageal reflux disease without esophagitis K21.9 [facility] [address] [place] [phone] 10/16/2024 Delmar Zhang Jr [facility] [address] [place] [phone] 09/20/2024 Delmar Zhang Jr Epigastric pain R10.13 and Abnormal UGI series R93.3 [facility] [address] [place] [phone] 07/18/2024 Delmar Zhang Jr [facility] [address] [place] [phone] 10/13/2024 Delmar Zhang Jr Nausea and vomiting, unspecified vomiting type R11.2 [facility] [address] [place] [phone] 10/13/2024 Delmar Zhang Jr [facility] [address] [place] [phone] 10/17/2024 Delmar Zhang Jr ASSESSMENTS Encounter Date [...] Provider Name:Delmar busby Jr, 12/20/2024 10:40:00 AM, [address] [place] [address], [address], [place], [phone], Insurance Providers Payer Name Payer Address Payer Phone Subscriber Number Group Number Insured Name Patient Relationship to Insured Coverage Start Date Coverage End Date [employer] Medicare Advantage Plan [address] [address] [place] [address] [phone] [id number] [employer] [place] Self - patient is the insured MEDICAL (GENERAL) HISTORY Medical History History ICD Code Asthma Hypothyroidism Anxiety/depression DCIS left breast status post lumpectomy, XRT, tamoxifen Diverticulosis/colon polyps, colonoscopy 01/17, tubular adenoma. EGD for GERD, 01/17, small hiatal hernia Surgical History Surgery Date(Month/Year) Mandibular surgery 1978 Tubal ligation Cholecystectomy
--- OUTSIDE RECORDS SUMMARY | 2024-11-11 05:09 | XMS_ITS ---
Author Organization [facility] Address [address] [place] [address] [place] [phone] Care Team Providers Care Public Health Assistant Name Role Phone SANGITA SHRESTHA Primary Care Provider Ramona Zhang Jr, Delmar Purdy REASON FOR VISIT rx MEDICATIONS Medication SIG (Take, Route, Fr equency, Duration) Notes Start Date End Date Status Ondansetron HCl 4 MG 1 tablet Orally demetra ry 8 hrs as needed vor nausea and vomiting for 10 days 10/13/2024 Active Encounters Encounter Location Date Provider Diagnosis [facility] [address] [place] [address] [place] [phone] 10/13/2024 Delmar Zhang Jr PLAN OF TREATMENT Medication Medication Name Sig Start Date Stop Date Notes Ondansetron HCl 4 MG 1 tablet Orally demetra ry 8 hrs as needed vor nausea and vomiting for 10 days 10/13/2024 Next Appt Details Provider Name:Delmar busby Jr, 12/20/2024 10:40:00 AM, [address] [place] [address], [address], [place], [phone],
--- OUTSIDE RECORDS SUMMARY | 2024-11-11 05:09 | XMS_ITS ---
Author Organization [facility] Address [address] [place] [address] [place] [phone] Care Team Providers Care Retail Project Merchandiser Name Role Phone SANGITA SHRESTHA Primary Care Provider Ramona Zhang Jr, Delmar Purdy REASON FOR VISIT epigastric pain Encounters Encounter Location Date Provider Diagnosis [facility] [address] [place] [address] [address] [place] [address] 10/16/2024 Delmar Zhang Jr PLAN OF TREATMENT Next Appt Details Provider Name:Delmar busby Jr, 12/20/2024 10:40:00 AM, [address] [place] [address], [address], [place], [phone],
--- NOTE | 2024-11-11 05:11 | ED_ITS ---
HPI - Extremity Problem General Chief complaint: Extremity Problem Stated complaint: shoulder pain, radiates down arm Time Seen by Provider: 11/11/24 05:07 Source: patient Mode of arrival: ambulatory Limitations: no limitations History of Present Illness ED Provider: HPI Narrative: Patient's history of chronic shoulder pain noticed increased pain in the left shoulder for last 2 days does have a chronic left sciatica also no recent injury pain is radiating to the upper back patient has not seen a specialist yet Related Data Home Medications ?Medication ?Instructions ?Recorded ?Confirmed cholecalciferol (vitamin D3) 50 50 mcg PO BID 07/30/20 10/06/24 mcg (2,000 unit) capsule levothyroxine 100 mcg tablet 100 mcg PO DAILY 07/30/20 10/06/24 acetaminophen 650 mg 650 mg PO Q8H PRN pain 10/07/20 10/06/24 tablet,extended release citalopram 20 mg tablet 20 mg PO DAILY 01/03/24 10/06/24 docusate sodium 100 mg capsule 200 mg PO BEDTIME PRN Constipation 01/03/24 10/06/24 (Colace) hydroxyzine HCl 25 mg tablet 25 mg PO BID 01/03/24 10/06/24 nebulizers 01/03/24 06/09/24 topiramate 25 mg tablet 25 mg PO DAILY 10/06/24 10/06/24 fluticasone fur. 200 mcg-umeclid 1 ea inhalation DAILY 10/10/24 10/10/24 62.5 mcg-vilant 25 mcg inhalat.powder (Trelegy Ellipta) Previous Rx's ?Medication ?Instructions ?Recorded hydrocortisone 2.5 % topical cream 1 appl [place] BID-QID PRN hemorrhoids 07/09/22 with perineal applicator #30 grams (Procto-Med HC) montelukast 10 mg tablet 10 mg PO BEDTIME 30 days #30 tabs 01/03/24 (Singulair) furosemide 40 mg tablet 40 mg PO DAILY #30 tabs 02/14/24 budesonide 0.5 mg/2 mL suspension 0.5 mg (2 mL) inhalation DAILY 30 03/10/24 for nebulization days #60 mL ipratropium 0.5 mg-albuterol 3 mg 3 ml inhalation BID severe 03/10/24 (2.5 mg base)/3 mL nebulization copd/asthma 30 days #180 mL soln loperamide 2 mg tablet (Imodium 4 mg (2 x 2 mg) PO DAILY PRN loose 05/19/24 A-D) stool #10 tabs ondansetron 4 mg disintegrating 4 mg PO DAILY PRN nausea and 05/19/24 tablet vomiting 5 days #10 tabs sucralfate 100 mg/mL oral 5 ml PO QID #200 mL 06/02/24 suspension pantoprazole 40 mg tablet,delayed 40 mg PO DAILY #30 tabs 06/12/24 release oxymetazoline 0.05 % nasal spray 2 spray intranasal Q12H PRN nasal 06/27/24 (Afrin (oxymetazoline)) congestion 5 days #22 mL albuterol sulfate 90 mcg/actuation 2 puff inhalation Q4-6H PRN 09/13/24 aerosol inhaler shortness of breath or wheezing #6.7 grams fluticasone fur. 200 mcg-umeclid 1 inh inhalation DAILY 30 days #60 09/13/24 62.5 mcg-vilant 25 mcg ea inhalat.powder (Trelegy Ellipta) morphine 15 mg immediate release 15 mg PO Q8H PRN pain #10 tabs 10/21/24 tablet prednisone 10 mg tablet 10 mg PO DIRECTED #42 tabs 10/21/24 tramadol 50 mg tablet 50 mg PO DAILY PRN pain 14 days 11/10/24 #14 tabs Allergies Allergy/AdvReac Type Severity Reaction Status Date / Time amoxicillin [AMOXICILLIN] Allergy Intermediate RASH Verified 11/11/24 04:38 Penicillins [PENICILLINS] Allergy Intermediate RASH Verified 11/11/24 04:38 animal dander Allergy Mild SHORTNESS Verified 11/11/24 04:38 OF BREATH ciprofloxacin [From Cipro] Allergy Mild RASH Verified 11/11/24 04:38 vancomycin [Vancomycin] Allergy Mild SHORTNESS Verified 11/11/24 04:38 OF BREATH Review of Systems Review of Systems: Yes all other systems are reviewed and are negative PMFSH Past Medical History Medical History Epigastric pain Allergies Low back pain Asthma-COPD overlap syndrome Tubular adenoma Diverticulosis of colon Tubular adenoma COPD (chronic obstructive pulmonary disease) Acute anxiety COPD exacerbation Allergic rhinitis Hypothyroid Asthma Asthma dependent on inhaled steroids Depression Anxiety Irritable bowel Acid reflux Diverticulosis large intestine w/o perforation or abscess w/o bleeding Surgical History H/O esophagogastroduodenoscopy (~12/2018) History of colonoscopy with polypectomy (~12/2018) History of mandibular surgery Hx of cholecystectomy Hx of tubal ligation Family History Family History Maternal Aunt Pancreatic cancer Maternal Grandmother Diabetes Stroke Maternal Grandfather Diabetes Mother COPD (chronic obstructive pulmonary disease) Father Respiratory failure Social History Social History Household Members: Spouse Household Members Other:: Lives with an 11-year-old granddaughter Housing: House Are you a primary nurse behavioral health care to a significant other at home: No Do you presently have visiting nurse or other home services: No Alcohol intake: never Patient Tobacco Use Status: Never used Tobacco Smoked in Last 30 Days: No e-Cigarette/Vaping Use: Never Used Second Hand Smoke Exposure: No Use of substances other than those prescribed or required for medical reasons: No Advance Directives: No Advance Directives Information Provided: Yes service: No Current occupational status: retired Cognitive needs: No Hearing needs: No Vision needs: Yes (glasses) Physical Exam Vital Signs: Vital Signs: Last Vital Signs Temp 98.4 F 11/11/24 04:35 Pulse 84 11/11/24 04:35 Resp 18 11/11/24 04:35 BP 124/75 11/11/24 04:35 Pulse Ox 97 11/11/24 04:35 O2 Del Method Room Air 11/11/24 04:35 BMI result Body Mass Index 31.0 Appearance: Alert. Oriented X3. No acute distress. ENT: Pharynx normal. Oral Mucosa moist Neck: Normal inspection. Neck supple. CVS: Normal heart rate and rhythm. Pulses normal. Respiratory: No respiratory distress. Equal air entry bilateral, Abdomen: Soft and nontender. Bowel sounds are present, no mass palpable, no CVA tenderness Skin: Skin warm and dry. Normal skin color. Normal skin turgor. Extremities: Left shoulder diffuse tenderness unable to abduct more than 45 degrees because of pain increased pain on external rotation internal rotation neurovascular intact Neuro: Oriented X 3. No motor deficit. Medications Administered Discontinued Medications Generic Name Dose Route Start Last Admin Trade Name Freq PRN Reason Stop Dose Admin Ketorolac Tromethamine 30 mg 11/11/24 05:42 11/11/24 05:48 Ketorolac Tromethamine 30 Mg/Ml Vial IM 11/11/24 05:43 30 mg ONCE ONE Administration Medical Decision Making Independent Interpretation I performed an independent interpretation of an: Plain X-Ray Radiology Impression Discussion of test interpretation with radiology: I have reviewed the radiologist's reading. Radiologist Impression: [address] [address] XRay Report Signed Patient: Nicol Sexton MR#: [id number] : 1955 Acct:[id number] Age/Sex: 69 / F ADM Date: 11/11/24 Loc: HO.ED Attending Dr: Ordering Physician: Generic ED Physician Date of Service: 11/11/24 Procedure(s): XR shoulder LT min 2V Accession Number(s): [id number] cc: [facility] ED Physician; Physician,Unknown ~ CLINICAL HISTORY: pain difficulty with movement 3 view left shoulder Comparison: None Findings: Bones intact. No dislocations. No significant arthritic change. No erosions. No radiopaque foreign body. IMPRESSION: 1. No acute findings This document has been electronically signed by: Hipolito Kothari MD on 11/11/2024 05:03:18 Discharge Plan Discharge Clinical Impression: Tendonitis of left rotator cuff Patient Disposition: Home, Self-Care Instructions: Rotator Cuff Tendinitis (ED) Additional Instructions: Wear the sling for support Continue to take tremadol for pain Follow with Orthopedics Prescriptions: No Action sucralfate 100 mg/mL suspension 5 ml PO QID Qty: 200 0RF Rx Instructions: swish in mouth and swallow; use after food/drink pantoprazole 40 mg tablet,delayed release (DR/EC) 40 mg PO DAILY Qty: 30 2RF tramadol 50 mg tablet 50 mg PO DAILY PRN (Reason: pain) 14 Days Qty: 14 0RF docusate sodium [Colace] 100 mg capsule 200 mg PO BEDTIME PRN (Reason: Constipation) ondansetron 4 mg tablet,disintegrating 4 mg PO DAILY PRN (Reason: nausea and vomiting) 5 Days Qty: 10 0RF loperamide [Imodium A-D] 2 mg tablet 4 mg PO DAILY PRN (Reason: loose stool) Qty: 10 0RF topiramate 25 mg tablet 25 mg PO DAILY Trelegy Ellipta 200-62.5-25 mcg blister with device 1 ea inhalation DAILY prednisone 10 mg tablet 10 mg PO DIRECTED Qty: 42 0RF Rx Instructions: Day 1 through 5 take 4 pills then decrease by 1 pill every 2 days until you complete prescription morphine 15 mg tablet 15 mg PO Q8H PRN (Reason: pain) Qty: 10 0RF Rx Instructions: Partial Fill upon patient request. furosemide 40 mg tablet 40 mg PO DAILY Qty: 30 0RF cholecalciferol (vitamin D3) 50 mcg (2,000 unit) capsule 50 mcg PO BID levothyroxine 100 mcg tablet 100 mcg PO DAILY acetaminophen 650 mg tablet extended release 650 mg PO Q8H PRN (Reason: pain) hydrocortisone [Procto-Med HC] 2.5 % cream with perineal applicator 1 appl AK BID-QID PRN (Reason: hemorrhoids) Qty: 30 3RF (DME) nebulizers Misc See Rx Instructions .Route Rx Instructions: As directed hydroxyzine HCl 25 mg tablet 25 mg PO BID citalopram 20 mg tablet 20 mg PO DAILY montelukast [Singulair] 10 mg tablet 10 mg PO BEDTIME 30 Days Qty: 30 11RF oxymetazoline [Afrin (oxymetazoline)] 0.05 % spray,non-aerosol 2 spray intranasal Q12H PRN (Reason: nasal congestion) 5 Days Qty: 22 0RF budesonide 0.5 mg/2 mL suspension for nebulization 0.5 mg inhalation DAILY 30 Days Qty: 60 5RF ipratropium-albuterol 0.5 mg-3 mg(2.5 mg base)/3 mL solution for nebulization 3 ml inhalation BID 30 Days Qty: 180 8RF albuterol sulfate 90 mcg/actuation HFA aerosol inhaler 2 puff inhalation Q4-6H PRN (Reason: shortness of breath or wheezing) Qty: 6.7 11RF Trelegy Ellipta 200-62.5-25 mcg blister with device 1 inh inhalation DAILY 30 Days Qty: 60 12RF Referrals: Jose Luis Randle MD [Physician] - 2 weeks Print Language: [place]
[2024-11-11] MEDS: Ketorolac Tromethamine 30 MG/ML VIAL IM (05:48)
[2024-11-11 07:06] VITALS: BP 120/86; PULSE 80; RESP 18; TEMP 36.9; O2SAT 98
[2024-11-11 07:07] VITALS: BP 120/86; PULSE 80; RESP 18; TEMP 36.9; O2SAT 98
== END 2024-11-11 07:08 | disposition home or self-care (01) ==
PROVIDERS: Emergency Provider Internal Medicine; PCP Internal Medicine
DX: M75.102 Unspecified rotator cuff tear or rupture of left shoulder, not specified as traumatic (principal); M25.512 Pain in left shoulder
CPT/HCPCS: 73030; 96372; 99284; J1885

== ENCOUNTER → 2024-11-11 04:45 | Outpatient (BNV) | payer MEDICARE, SELFPAY | PROVIDERS: Emergency Provider Internal Medicine; Visit Provider Specialist | DX: M25.512 Pain in left shoulder (principal) | CPT/HCPCS: 73030 ==

== ENCOUNTER → 2024-11-24 08:10 | Outpatient (BNVA) | payer MEDICARE, SELFPAY | PROVIDERS: PCP Internal Medicine; Visit Provider Physician Assistant | DX: M75.102 Unspecified rotator cuff tear or rupture of left shoulder, not specified as traumatic (principal) | CPT/HCPCS: 99202 ==

== ENCOUNTER 2024-12-25 09:49 | Outpatient (REF) | payer MEDICARE, SELFPAY ==
--- NOTE | ~2024-12-25 | XR_ITS ---
EXAMINATION: XR KNEE, LEFT CLINICAL INFORMATION: M25.569 - Pain in unspecified knee COMPARISON: December 07, 2023. TECHNIQUE: Three views of the left knee. FINDINGS: Joint space narrowing involving mostly the medial compartments of both knees. Marginal osteophyte formation the femoral condyles and tibial plateau as well as the posterior superior patella. Small suprapatellar bursa joint effusion. No acute cortical disruption or malalignment. No lytic or blastic lesions. XR/XR knee LT 3V IMPRESSION: Tricompartmental osteoarthrosis involving mostly the medial compartment. Electronically signed by: Ravin Porter MD 12/26/2024 02:20 PM EST
--- OUTSIDE RECORDS SUMMARY | 2024-12-25 10:46 | XMS_ITS ---
Author Organization [facility] Address [address] [place] [address] [place] [phone] Care Team Providers Care Floor Worker Well Service Name Role Phone Yanira Cordobas Primary Care Provider Unavailab Delmar Ramirez Jr REASON FOR VISIT labs and pathology Encounters Encounter Location Date Provider Diagnosis [facility] [address] [place] [phone] 10/17/2024 Delmar Zhang Jr PLAN OF TREATMENT Next Appt Details Provider Name:Delmar busby Jr, 12/24/2025 09:00:00 AM, [address] [place] [address], [address], [place], [address],
--- OUTSIDE RECORDS SUMMARY | 2024-12-25 10:46 | XMS_ITS | Clinical Summary ---
Author Organization [employer] Address [address] [facility] 7[address] [place] [address] Care Team Providers Care Data Specialist Name Role Phone Sosa Clement MD Primary Care Provider [phone] Allergies Active Allergy Reactions Criticality Noted Date Comments Cat Dander 12/16/2018 Ciprofloxacin Unknown 11/13/2010 Other reaction(s): unspecified Penicillins 07/05/2013 Vancomycin Unknown 11/13/2010 Medications levothyroxine (Synthroid, Levoxyl) 100 MCG tabletIndications: Acquired hypothyroidism TAKE 1 TABLET BY MOUTH ONCE DAILY 30 tablet 5 3 Active fluticasone (Flovent) 220 MCG/ACT inhalerIndications :Severe persistent asthma with allergic rhinitis with acute exacerbation Inhale 1 puff in the morning and at bedtime. Rinse mouth with water after use to reduce aftertaste and incidence of candidiasis. Do not swallow. 12 g 11 3 Active Incruse Ellipta 62.5 MCG/ACT aerosol powder INHALE 1 PUFF EVERY DAY AT THE SAME TIME 3 Active predniSONE (Deltasone) 20 MG tablet Take 40 mg by mouth in the morning. 3 Active pantoprazole (ProtoNix) 40 MG EC tablet Take 40 mg by mouth in the morning. 3 Active SM Fiber Laxative 500 MG tablet Take 1 tablet by mouth 3 times daily. 3 Active clonazePAM (KlonoPIN) 0.5 MG tablet Take 0.5 mg by mouth. 0 Active acetaminophen (Tylenol 8 Hour) 650 MG ER tablet TAKE 2 TABLETS BY MOUTH EVERY 8 HOURS NEEDED SWALLOW WHOLE WITH WATER DO NOT BREAK, CRUSH, DISSOLVE OR CHEW 2 Active albuterol (2.5 MG/3ML) 0.083% nebulizer solution Inhale 1 vial. 01 8 Active Azelastine HCl 0.15 % solution Administer 2 sprays into affected nostril(s). 8 Active cetirizine (ZyrTEC) 10 MG tablet Take 10 mg by mouth in the morning. 2 Active ketotifen (Zaditor) 0.025 % ophthalmic solution Apply daily to eyes 10 mL 11 3 Active cyclobenzaprine (Flexeril) 10 MG tablet TAKE 1 TABLET BY MOUTH AT BEDTIME 30 tablet 3 Active citalopram (CeleXA) 20 MG tablet TAKE 1 TABLET BY MOUTH DAILY 30 tablet 11 3 Active D3 Super Strength 50 MCG (2000 UT) capsuleIndications :Vitamin D deficiency TAKE 1 CAPSULE BY MOUTH TWICE DAILY 180 capsule 1 3 Active hydrOXYzine HCl (Atarax) 25 MG tablet TAKE 1 TABLET BY MOUTH EVERY TWELVE HOURS NEEDED FOR ITCHING 60 tablet 3 4 Active levothyroxine (Synthroid, Levoxyl) 100 MCG tabletIndications: Acquired hypothyroidism TAKE 1 TABLET BY MOUTH EVERY DAY BEFORE BREAKFAST 30 tablet 5 4 Active Active Problems Problem Noted Date Diagnosed Date Severe persistent asthma with allergic rhinitis 04/11/2020 Asthma-chronic obstructive p ulmonary disease overlap syndrome 04/22/2017 Overview (12/24/2022): Last Assessment & Plan: 1. Continue with triple therapy with Breo and Incruse 1 puff of 51 once a day 2. Continue with albuterol as needed 3. IgE, Aspergillus antibodies and CBC to make sure eosinophils 4. Return to clinic in 6 months Obstructive sleep apnea syndrome 04/22/2017 Gastroesophageal reflux disease 04/22/2017 Adjustment disorder with depressed mood 08/29/20 15 Anxiety 03/15/2012 Hypothyroid 03/15/2012 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 Immunizations Name Administration Dates Next Due Moderna Covid-19 Vaccine 6+ Bivalent 10/30/2022 Social History Tobacco Use Types Packs/Day Years Used Date Smoking Tobacco: Never Passive Smoke Exposure: Never Smokeless Tobacco: Never Tobacco Cessation:Counseling Given: Not Answered Alcohol Use Standard Drinks/Week Comments Never 0 (1 standard drink = 0.6 oz pur e alcohol) Depression Answer Date Recorded Patient Health Questionnaire-9 Score 16 04/07/2023 Housing Stability Answer Date Recorded What is your housing situation today? I have sharmin murrell 09/11/[address] you li ve. Do you have problems with any of the following? None of the above 09/11/2023 Food Insecurity Answer Date Recorded Within the past 12 months, y ou worried that your food would run out before you got money to buy more: Never True 09/11/2023 Within the past 12 months,th e food you bought just didn't last and you didn't have enough money to get more: Never True 09/2023 Transportation Answer Date Recorded In the past 12 months, has l ack of transportation kept you from medical appts, meetings, work or from getting things needed for daily living? No 09/11/2023 Utilities Answer Date Recorded In the past 12 months, has t he electric, gas, oil or water [employer] threatened to shut off services in your home? No 09/11/2023 Depression Answer Date Recorded Patient Health Questionnaire-2 Score 5 04/07/2023 Comments Unknown Sex and Gender Information Value Date Recorded Sex Assigned at Female 08/31/2022 10:14 AM EDT Legal Sex Female 10:14 AM EDT Gender Identity Female 08/31/2022 10:14 AM EDT Sexual Orientation Straight 08/31/2022 10 :14 AM EDT Last Filed Vital Signs Vital Sign Reading Time Taken Comments Blood Pressure 138/82 04/07/2023 9:11 AM EDT Pulse 76 04/07/2023 9:11 AM EDT Temperature 36.9 ??C (98.4 ??F) 04/07/2023 9:11 AM ED T Respiratory Rate 16 04/07/2023 9:11 AM EDT Oxygen Saturation 99% 03/10/2023 9:17 AM EDT Inhaled Oxygen Concentration - - Weight 86.2 kg (190 lb) 04/07/2023 9:11 AM EDT Height 162.6 cm (5' 4 ) 04/07/2023 9:11 AM EDT Body Mass Index 32.61 04/07/2023 9:11 AM EDT Plan of Treatment Health Maintenance Due Date Last Done Comments CT Colonography 1955 Colonoscopy 1955 Colorectal Cancer Screening 1955 FIT DNA/Cologuard 1955 FIT 1955 FOBT 1955 Sigmoidoscopy 1955 Alcohol/Substance Use Screening 1967 Hepatitis C Screening 1973 RSV Patients and Patients Aged 60 years or older (1 - Risk 60-74 years 1-dose series) 2015 Depression Monitoring (PHQ-9) 10/07/2023 04/07/2023, 04/07/2023 Tobacco Screening 03/10/2024 03/10/2023 Depression Screening 04/07/2024 04/07/2023, 04/07/20 23 SDOH Screening 04/07/2024 04/07/2023 COVID-19 Vaccine ( season) 2024 10/30/2022, 10/13/2021, 01/14/2021, Additional history exists Influenza Vaccine (#1) 2024 , 07/20/2021, 07/28/2018, Additional history exists Mammogram 12/15/2024 12/15/2022, 12/2019, 10/27/2018 DTaP/Tdap/Td Vaccines (2 - Td or Tdap) 12/03/2025 12/03/2015 Zoster Vaccines Completed 11/19/2023, 05/02, 03/09/2019, Additional history exists Pneumococcal Vaccine: 50+ Years Completed 01/03/2024 HIB Vaccines Aged Out No longer eligi ble based on patient's age to complete this topic HPV Vaccines Aged Out No longer eligi ble based on patient's age to complete this topic Hepatitis A Vaccines Aged Out No long er eligible based on patient's age to complete this topic Hepatitis B Vaccines Aged Out No long er eligible based on patient's age to complete this topic IPV Vaccines Aged Out No longer eligi ble based on patient's age to complete this topic Meningococcal Vaccine Aged Out No bay joel eligible based on patient's age to complete this topic RSV under 20 months Aged Out No longe r eligible based on patient's age to complete this topic Rotavirus Vaccines Aged Out No longer eligible based on patient's age to complete this topic Procedures Procedure Name Priority Date/Time Associated Diagnosis Comments BI MAMMOGRAM SCREENING TOMOSYNTHESIS BILATERAL Routine 12/15/2022 8:20 AM EST from Last 3 Months or Most Recently Relevant to Health Maintenance Results * BI Mammogram Screening Tomosynthesis Bilateral (12/15/2022 8:20 AM EST) Anatomical Region Laterality Modality Breast Bilateral Mammography 12/15/2022 8:20 AM EST Narrative 12/16/2022 11:32 AM EST ? [facility] ? [address] ?[place] [address] ? Mammography Report ? Signed ? Patient: Darshan,Iris ?MR#: [id number] ? : 1955 ?Acct:[id number] ? Age/Sex: 67 / F ?ADM Date: 12/15/22 ? Loc: HO.MAMMO ? Attending Dr: Iftikhar Marin MD ? Ordering Physician: Tomer Moore MD ?Results: 2Benig ?? n Findings ? Date of Service: 12/15/22 ?Follow Up: 1 Year From Orig ?? inal Mammogram ? Procedure(s): MM tomosynthesis screening BI ?? Accession Number(s): [id number] ? cc: Tomer Moore MD ? EXAMINATION: ?? MM SCREENING DIGITAL BREAST TOMOSYNTHESIS, BILATERAL ? CLINICAL INFORMATION: ? Due for yearly. 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 ? COMPARISON: ?? Mammography: 08/28/2021, and 07/02/2020, 10/26/2018 ? TECHNIQUE: ?? Digital breast tomosynthesis is performed in both the craniocaudal and ?? mediolateral oblique views along with computer-aided detection (CAD). ?? Synthesized 2D images are generated from the tomosynthesis. ? FINDINGS: ?? There are scattered areas of fibroglandular density (ACR BI-RADS breast ?? composition Category b). ? Mammography is similar to prior studies. There are post therapy changes ?? on the left with reduced breast size, axillary clip, and stable ?? scarring central 12:00 position. Neither breast shows interval mass or ?? developing density or interval architectural abnormality. No abnormal ?? calcifications. No significant changes. ? MM/MM tomosynthesis screening BI ?? IMPRESSION: ?? -No mammographic evidence of malignancy. ?? -Post therapy changes left breast. ? ASSESSMENT: ? BI-RADS 2: Benign ? RECOMMENDATION: ?? Routine annual mammography screening. ? This patient's information was entered into a reminder system with a ?? target due date for their next mammogram. ? Dictated By: ?Irving Bragg MD ? Signed By: ?<Electronically signed by Irving Bragg MD in OV> ?12/16/22 1129 ? DD/ 0820 ? TD/TT: ? Desktop Analyst: HESTER ? Procedure Note Maria Isabel, Dot - 12/16/2022 [facility] [address] [place] [address] [place] [address] Mammography Report Signed Patient: Rick Sexton#: [id number] : 5Acct:[id number] Age/Sex: 67 / FADM Date: 12/15/22 Loc: HO.MAMMO Attending Dr: Iftikhar Marin MD Ordering Physician: Tomer Moore MDResults: 2Benig n Findings Date of Service: 12/15/22Follow Up: 1 Year From Orig ina Mammogram Procedure(s): MM tomosynthesis screening BI Accession Number(s): [id number] cc: Tomer Moore MD EXAMINATION: MM SCREENING DIGITAL BREAST TOMOSYNTHESIS, BILATERAL CLINICAL INFORMATION: Due for yearly. Prior history left breast DCIS, status post lumpectomy 2005. COMPARISON: Mammography: 08/28/2021, and 07/02/2020, 10/26/2018 TECHNIQUE: Digital breast tomosynthesis is performed in both the craniocaudal and mediolateral oblique views along with computer-aided detection (CAD). Synthesized 2D images are generated from the tomosynthesis. FINDINGS: There are scattered areas of fibroglandular density (ACR BI-RADS breast composition Category b). Mammography is similar to prior studies. There are post therapy changes on the left with reduced breast size, axillary clip, and stable scarring central 12:00 position. Neither breast shows interval mass or developing density or interval architectural abnormality. No abnormal calcifications. No significant changes. MM/MM tomosynthesis screening BI IMPRESSION: -No mammographic evidence of malignancy. -Post therapy changes left breast. ASSESSMENT: BI-RADS 2: Benign RECOMMENDATION: Routine annual mammography screening. This patient's information was entered into a reminder system with a target due date for their next mammogram. Dictated By: Irving Bragg MD Signed By: <Electronically signed by Irving Bragg MD in OV> 12/16/22 1129 DD/ 0820 TD/TT: Desktop Analyst: HESTER [facility] External Provider IMG BI PROCEDURES Edited Result - Final from Last 3 Months or Most Recently Relevant to Health Maintenance Insurance MEDICARE [facility] OPT[facility] Care Teams Data Specialist Relationship Specialty Start Date End Date Sosa Clement MD [address] [place] [id number] PCP - General Family Medicine 11/01/18
--- OUTSIDE RECORDS SUMMARY | 2024-12-25 10:46 | XMS_ITS | Encounter Summary ---
Author Organization [employer] Address [address] [facility] 7t [place] [address] Care Team Providers Care Feed Mixer Name Role Phone Sosa Clement MD Primary Care Provider [phone] Encounter Details Date Type Department Care Team (Late st Contact Info) Description 04/21/2023 Abstract [facility] [address] [place] [address] Sosa Clement MD [address] [place] [address] Social History Tobacco Use Types Packs/Day Years Used Date Smoking Tobacco: Never Passive Smoke Exposure: Never Smokeless Tobacco: Never Alcohol Use Standard Drinks/Week Comments Never 0 (1 standard drink = 0.6 oz pur e alcohol) Depression Answer Date Recorded Patient Health Questionnaire-9 Score 16 04/07/2023 Depression Answer Date Recorded Patient Health Questionnaire-2 Score 5 04/07/2023 Comments Unknown Sex and Gender Information Value Date Recorded Sex Assigned at Female 08/31/2022 10:14 AM EDT Legal Sex Female 10:14 AM EDT Gender Identity Female 08/31/2022 10:14 AM EDT Sexual Orientation Straight 08/31/2022 10 :14 AM EDT COVID-19 Exposure Response Date Recorded In the last 10 days, have yo u been in contact with someone who was confirmed or suspected to have Coronavirus/COVID-19? No / Unsure 04/07/2023 8:54 AM EDT documented as of this encounter Plan of Treatment Not on file documented as of this encounter Visit Diagnoses Not on filedocumented in this encounter Additional Health Concerns Assessment Noted Time PHQ-9 Depression Total Score: 16 023 9:12 AM EDT documented as of this encounter Care Teams Feed Mixer Relationship Specialty Start Date End Date Sosa Clement MD [address] [place] [id number] PCP - General Family Medicine 11/01/18 documented as of this encounter
--- OUTSIDE RECORDS SUMMARY | 2024-12-25 10:46 | XMS_ITS | Encounter Summary ---
Author Organization [employer] Address [address] [facility] [address] [place] [address] Care Team Providers Care Manager Of Clinical Name Role Phone Sosa Clement MD Primary Care Provider [phone] Reason for Visit * Reason Comments Med Refill Encounter Details Date Type Department Care Team ([facility] Contact Info) Description 06/26/2024 Refill [facility] [address] [place], [place] [phone] Sosa Clement MD [address] [place] [address] Social History Tobacco Use Types Packs/Day Years [...] t he electric, gas, oil or water company threatened to shut off services in your home? No 09/11/2023 Depression Answer Date Recorded Patient Health Questionnaire-2 Score 5 04/07/2023 Comments Unknown Sex and Gender Information Value Date Recorded Sex Assigned at Female 08/31/2022 10:14 AM EDT Legal Sex Female 10:14 AM EDT Gender Identity Female 08/31/2022 10:14 AM EDT Sexual Orientation Straight 08/31/2022 10 :14 AM EDT documented as of this encounter Plan of Treatment Not on file documented as of this encounter Visit Diagnoses Not on filedocumented in this encounter Additional Health Concerns Assessment Noted Time PHQ-9 Depression Total Score: 16 023 9:12 AM EDT documented as of this encounter Care Teams Manager Of Clinical Relationship Specialty Start Date End Date Sosa Clement MD [address] [place] [address] PCP - General Family Medicine 11/01/18 documented as of this encounter
--- OUTSIDE RECORDS SUMMARY | 2024-12-25 10:46 | XMS_ITS ---
Author Organization [facility] Address [address] [place] [address] [place] [phone] Care Team Providers Care Shrimp Pond Laborer Name Role Phone AdalidJesús Primary Care Provider Unavailab Delmar Ramirez Jr [phone] REASON FOR VISIT epigastric pain Encounters Encounter Location Date Provider Diagnosis [facility] [address] [place] [address] [place] [phone] 10/16/2024 Delmar Zhang Jr PLAN OF TREATMENT Next Appt Details Provider Name:Delmar busby Jr, 12/24/2025 09:00:00 AM, [address] [place] [address], [address], [place], [phone],
--- OUTSIDE RECORDS SUMMARY | 2024-12-25 10:46 | XMS_ITS | Encounter Summary ---
Author Organization [employer] Address [address] [facility] [address] [place] [address] Care Team Providers Care Flat Sorting Machine Clerk Name Role Phone Sosa Clement MD Primary Care Provider [phone] Reason for Visit * Reason Onset Date Comments Referral 12/17/2022 Encounter Details Date Type Department Care Team ([facility] st Contact Info) Description 12/17/2022 Telephone [facility] PEDS [address] [place], [place] [phone] Sosa Clement MD [address] [place] [address] Referral Social History Tobacco Use Types Packs/Day Years Used Date Smoking Tobacco: Never Assessed Comments Unknown Sex and Gender Information Value Date Recorded Sex Assigned at Female 08/31/2022 10:14 AM EDT Legal Sex Female 10:14 AM EDT Gender Identity Female 08/31/2022 10:14 AM EDT Sexual Orientation Straight 08/31/2022 10 :14 AM EDT documented as of this encounter Miscellaneous Notes * Telephone Encounter - Vianey Rasmussen - 12/17/2022 1:31 PM EST Tc from pt requesting a referral for a program that provides personal help the Program name is [facility] and their fax number is [phone]. If any questions please contact pt at [phone] Bahamian Speaker documented in this encounter Plan of Treatment Not on file documented as of this encounter Visit Diagnoses Not on filedocumented in this encounter Care Teams Flat Sorting Machine Clerk Relationship Specialty Start Date End Date Sosa Clement MD [address] [place] [id number] PCP - General Family Medicine 11/01/18 documented as of this encounter
--- OUTSIDE RECORDS SUMMARY | 2024-12-25 10:46 | XMS_ITS | Encounter Summary ---
Author Organization [employer] Address [address] [facility] [address]t [place] [address] Care Team Providers Care Fire Marshal Name Role Phone Sosa Clement MD Primary Care Provider [phone] Reason for Visit * Reason Comments Med Refill Encounter Details Date Type Department Care Team ([facility] st Contact Info) Description 02/03/2023 Refill [facility] PEDS [address] [place], [place] [phone] Iftikhar Marin MD [address] [place] [address] Severe persistent asthma with allergic rhinitis with acute exacerbation Social History Tobacco Use Types Packs/Day Years Used Date Smoking Tobacco: Never Passive Smoke Exposure: Never Smokeless Tobacco: Never Alcohol Use Standard Drinks/Week Comments Never 0 (1 standard drink = 0.6 oz pur e alcohol) Comments Unknown Sex and Gender Information Value Date Recorded Sex Assigned at Female 08/31/2022 10:14 AM EDT Legal Sex Female 10:14 AM EDT Gender Identity Female 08/31/2022 10:14 AM EDT Sexual Orientation Straight 08/31/2022 10 :14 AM EDT documented as of this encounter Plan of Treatment Not on file documented as of this encounter Visit Diagnoses Diagnosis Severe persistent asthma with allergic rhinitis with acute exacerbation documented in this encounter Care Teams Fire Marshal Relationship Specialty Start Date End Date Sosa Clement MD [address] [place] [address] PCP - General Family Medicine 11/01/18 documented as of this encounter
--- OUTSIDE RECORDS SUMMARY | 2024-12-25 10:46 | XMS_ITS | Encounter Summary ---
Author Organization [employer] Address [address] [facility] [address] [place] [address] Care Team Providers Care Gaming Cage Cashier Name Role Phone Sosa Clement MD Primary Care Provider [phone] Reason for Visit * Reason Comments Med Refill Encounter Details Date Type Department Care Team ([facility] Contact Info) Description 06/17/2024 Refill [facility] PEDS [address] [place], [place] [phone] Sosa Clement MD [address] [place] [address] Social History Tobacco Use Types Packs/Day Years [...] documented as of this encounter Care Teams Gaming Cage Cashier Relationship Specialty Start Date End Date Sosa Clement MD [address] [place] [address] PCP - General Family Medicine 11/01/18 documented as of this encounter
== END 2024-12-25 09:50 | disposition home or self-care (01) ==
LOC: HO.HOSX 09:49
PROVIDERS: Visit Provider Physician Assistant
DX: M25.562 Pain in left knee (principal); M17.11 Unilateral primary osteoarthritis, right knee
CPT/HCPCS: 20610; 73562; 99212; J1010; J2003

== ENCOUNTER 2024-12-25 13:09 | Outpatient (AMB) | payer MEDICARE, MEDICAID, SELFPAY ==
--- NOTE | 2024-12-25 13:46 | MHC.OFFVIS ---
Vital Signs 12/25/24 13:49 Height 5 ft 4 in Weight 181 lb BMI 31.1 Intake Visit Reasons: New prob-LT knee pain Intake Note: Nicol is a 69 year old left hand dominant female who presents today for a evaluation of her left knee pain. Patient reports ongoing pain since October. Patient states that she has a history of sciatic pain and she feels its is making her knee pain worse. She mentions that her pain is worse when she is sitting and laying down. Patient has tried and failed NSAIDs, Tylenol and Oxycodone. Allergies amoxicillin [AMOXICILLIN] Allergy (Intermediate, Verified 12/25/24 13:49) RASH Penicillins [PENICILLINS] Allergy (Intermediate, Verified 12/25/24 13:49) RASH animal dander Allergy (Mild, Verified 12/25/24 13:49) SHORTNESS OF BREATH ciprofloxacin [From Cipro] Allergy (Mild, Verified 12/25/24 13:49) RASH vancomycin [Vancomycin] Allergy (Mild, Verified 12/25/24 13:49) SHORTNESS OF BREATH HPI HPI New prob-LT knee pain: Details: Ms. Sexton is a 69-year-old female who presents to the office today for evaluation of left knee pain. She reports that the pain has been ongoing since October. She denies any injury or trauma to the area. She does have a history of sciatica which radiates down from her buttocks to the posterior aspect of the leg. She reports that her pain is worse when trying to move from a xvd-yk-ammpj position. She has tried NSAIDs, Tylenol and oxycodone with minimal relief. [facility] Medical History Epigastric pain Allergies Low back pain Asthma-COPD overlap syndrome Tubular adenoma Diverticulosis of colon Tubular adenoma COPD (chronic obstructive pulmonary disease) Acute anxiety COPD exacerbation Allergic rhinitis Hypothyroid Asthma Asthma dependent on inhaled steroids Depression Anxiety Irritable bowel Acid reflux Diverticulosis large intestine w/o perforation or abscess w/o bleeding Surgical History H/O esophagogastroduodenoscopy (~12/2018) History of colonoscopy with polypectomy (~12/2018) History of mandibular surgery Hx of cholecystectomy Hx of tubal ligation Family History Maternal Aunt Pancreatic cancer Maternal Grandmother Diabetes Stroke Maternal Grandfather Diabetes Mother COPD (chronic obstructive pulmonary disease) Father Respiratory failure Social History Household Members: Spouse Household Members Other:: Lives with an 11-year-old granddaughter Housing: House Are you a primary health care / medical job titles to a significant other at home: No Do you presently have visiting nurse or other home services: No Alcohol intake: never Patient Tobacco Use Status: Never used Tobacco e-Cigarette/Vaping Use: Never Used Second Hand Smoke Exposure: No service: No Current occupational status: retired Current occupation: left hand dominant Cognitive needs: No Hearing needs: No Vision needs: Yes (glasses) Review of Systems Const All systems reviewed & are unremarkable except as noted in HPI and below Physical Exam Vital Signs: BMI result Body Mass Index 31.1 Extrem Other: Left knee: Normal to inspection. No ecchymosis, erythema, or joint effusion. Slight tenderness to palpation joint line. Range of motion 0-90 degrees. NVI. Office Procedures Joint Inj/Aspir; Non-Pain Clin Joint Injection/Drain Prep: site was prepped using aseptic technique and injection warnings given Approach Used: anterolateral Procedure: The patient tolerated the procedure well, but had some pain with the injection and there was some relief with the local anesthesia Shoulders, Hips, Knees, Knee Large Joint Injection [id number]: Left Knee Coding Procedure code (CPT) selection complete Assessment & Plan Assessment & Plan (1) Osteoarthritis of left knee: Code(s): M17.12 - Unilateral primary osteoarthritis, left knee Category: Medical Plan Ms. Sexton is a 69-year-old female who presents to the office today for evaluation of left knee pain. She reports that the pain has been ongoing since October. She denies any injury or trauma to the area. She does have a history of sciatica which radiates down from her buttocks to the posterior aspect of the leg. She reports that her pain is worse when trying to move from a fcn-sj-lobay position. She has tried NSAIDs, Tylenol and oxycodone with minimal relief. While in the office today, the patient was offered a cortisone injection in the left knee with 80 mg of DepoMedrol. The patient was explained the risks, benefits, and alternatives to receiving this injection. After receiving consent for the injection, the patient had the procedure done while in the office today. The patient tolerated the procedure well with no complications. Follow-up will be p.r.n., or sooner if needed. X-rays of the left knee which were obtained while in the office today and were reviewed by me, Meryl Bales PA-C, revealed osteoarthritis left knee. Orders: Orders XR knee RT 1V Today M25.569 - Pain in unspecified knee XR knee LT 3V Today M25.569 - Pain in unspecified knee PT Evaluation and Treatment Today M75.102 - Unspecified rotator cuff tear or rupture of left shoulder, not specified as traumatic Coding Level of Care Code Est Pt Level 3 (30936) Diagnoses Osteoarthritis of left knee M17.12 CPT Codes Shoulders, Hips, Knees, - Knee Large Joint Injection : Left Knee ([id number])
[2024-12-25 13:49] VITALS: BMI 31.1
--- OUTSIDE RECORDS SUMMARY | 2024-12-25 15:01 | XMS_ITS | Encounter Summary ---
Author Organization [facility] Address [address] [place] [address] Care Team Providers Care Spinning Frame Fixer Name Role Phone Sosa Clement Primary Care Provider Unavailab le Encounter Details Date Type Department Care Team Description 09/15/2017 Transfer Records Medical Records [address] [place] [address] Abstract, Provider Social History Tobacco Use Types Packs/Day Years Used Date Smoking Tobacco: Never Smokeless Tobacco: Never Sex Assigned at Date Recorded Not on file documented as of this encounter Plan of Treatment Not on file documented as of this encounter Visit Diagnoses Not on filedocumented in this encounter Care Teams Spinning Frame Fixer Relationship Specialty Start Date End Date Sosa Clement PCP - General Family Practice 07/26/14 documented as of this encounter
--- OUTSIDE RECORDS SUMMARY | 2024-12-25 15:01 | XMS_ITS | Encounter Summary ---
Author Organization [facility] Address [address] [place] [address] Care Team Providers Care Possum Trapper Name Role Phone Sosa Clement Primary Care Provider Unavailab le Encounter Details Date Type Department Care Team Description 04/17/2018 Hospital Medical Records [address] [place] [id number] [place] [address] Social History Tobacco Use Types Packs/Day Years Used Date Smoking Tobacco: Never Smokeless Tobacco: Never Sex Assigned at Date Recorded Not on file documented as of this encounter Plan of Treatment Not on file documented as of this encounter Visit Diagnoses Not on filedocumented in this encounter Care Teams Possum Trapper Relationship Specialty Start Date End Date Sosa Clement PCP - General Family Practice 07/26/14 documented as of this encounter
--- OUTSIDE RECORDS SUMMARY | 2024-12-25 15:01 | XMS_ITS | Encounter Summary ---
Author Organization [facility] [employer] Address [address] [facility] [address] [place] [address] Care Team Providers Care Cnc Service Engineer Name Role Phone Sosa Clement MD Primary Care Provider [phone] Reason for Visit * Reason Onset Date Comments Referral 12/17/2022 Encounter Details Date Type Department Care Team ([facility] st Contact Info) Description 12/17/2022 Telephone [facility] CHC MED & PEDS [address] [place], [place] [phone] Sosa Clement MD [address] [place] [address] Referral Social History Tobacco Use Types Packs/Day [...] is Kenyatta and their fax number is [phone]. If any questions please contact pt at [phone] Prydeinig Speaker documented in this encounter Plan of Treatment Not on file documented as of this encounter Visit Diagnoses Not on filedocumented in this encounter Care Teams Cnc Service Engineer Relationship Specialty Start Date End Date Sosa Clement MD [address] [place] [address] PCP - General Family Medicine 11/01/18 documented as of this encounter
--- OUTSIDE RECORDS SUMMARY | 2024-12-25 15:01 | XMS_ITS | Encounter Summary ---
Author Organization [facility] [employer] Address [address] [facility] 7t [place] [address] Care Team Providers Care Compensator Worker Name Role Phone Sosa Clement MD Primary Care Provider [phone] Reason for Visit * Reason Comments Med Refill Encounter Details Date Type Department Care Team ([facility] st Contact Info) Description 02/03/2023 Refill [facility] CHC MED & PEDS [address] [place], [place] [phone] Iftikhar Marin MD [address] [place] [address] Severe persistent asthma with allergic rhinitis with [...] exacerbation documented in this encounter Care Teams Compensator Worker Relationship Specialty Start Date End Date Sosa Clement MD [address] [place] [address] PCP - General Family Medicine 11/01/18 documented as of this encounter
--- OUTSIDE RECORDS SUMMARY | 2024-12-25 15:01 | XMS_ITS ---
Author Organization [facility] Address [address] [place] [address] Care Team Providers Care Blender Name Role Phone Adalid Jesús Primary Care Provider Unavailab Delmar Ramirez Jr Unavailable ALLERGIES No Known Allergies REASON FOR VISIT Patient presents today for acid RELUX, GERD MEDICATIONS Medication SIG (Take, Route, Frequency, Duration) Notes Start Date End Date Status Trelegy Ellipta 200-62.5-25 MCG/ACT Inhalation for 30 Act demi Levothyroxine Sodium 100 MCG Oral for 30 Active Montelukast Sodium 10 MG TAKE 1 TABLET BY MOUTH EVERY DAY AT BEDTIME Oral for 30 [id number],Unavaila ble Active Ibuprofen 800 MG Oral for 6 Days Active Calcium Carb-Cholecalciferol 600-10 MG-MCG TAKE 1 TABLET BY MOUTH TWICE A DAY Oral for 90 Days Active Topiramate 25 MG Oral for 30 A ctive Ventolin HFA 108 (90 Base) MCG/ACT INHALE 2 PUFFS EVERY 4 TO 6 HOURS NEEDED FOR SHORTNESS OF BREATH OR FOR WHEEZE Inhalation for 25 Active Pantoprazole Sodium 40 MG TAKE 1 TABLET BY MOUTH EVERY DAY Oral for 90 Active SOCIAL HISTORY Tobacco Use: Social History Observation [...] W/U Status Risk SNOMED Code Notes Problem Elevated LFTs (R79.89) Active confirmed 808426605 Problem Gastroesophageal reflux disease without esophagitis (K21.9) Active confirmed 540620954 VITAL SIGNS Temperature 98.4 degrees Fahrenheit 12/20/19 25 Blood pressure systolic 001 mm Hg 12/20/19 25 Blood pressure diastolic 01 mm Hg 025 Height 5 ft 4 in in 12/20/2024 Weight 180 lbs 12/20/2024 BMI 30.89 kg/m2 12/20/2024 Encounters Encounter Location Date Provider Diagnosis [facility] [address] [place] [address] 12/20/2024 Delmar Zhang Jr Elevated LFTs R79.89 and Gastroesophageal reflux disease without esophagitis K21.9 ASSESSMENTS Encounter Date Diagnosis Assessment Notes Treatment Notes Treatment Clinical Notes 12/20/2024 Elevated LFTs (ICD-1 0 - R79.89) 12/20/2024 Gastroesophageal ref lux disease without esophagitis (ICD-10 - K21.9) PLAN OF TREATMENT Pending Test Test Name Order Date LIVER PROFILE 12/20/2024 IRON + IBC (FE) 12/20/2024 FERRITIN 12/20/2024 CBC w/o DIFF 12/20/2024 HEPATITIS A,B,C PROFILE 12/20/2024 MITOCHONDRIAL AB 12/20/2024 SMOOTH MUSCLE ANTIBODIES 12/20/2024 US ABD 12/20/2024 Liver Fibrosis Pnl 12/20/2024 FREDDIE Reflex Titer and Pattern 12/20/2024 Next Appt Details Follow Up: 2 Months, 1 Year, Reason: Provider Name:Delmar busby Jr, 12/24/2025 09:00:00 AM, [address], [address], [place], [address],
--- OUTSIDE RECORDS SUMMARY | 2024-12-25 15:01 | XMS_ITS | Encounter Summary ---
Author Organization [facility] Address [address] [place] [address] Care Team Providers Care Digital Project Manager Name Role Phone Sosa Clement Primary Care Provider Unavailab le Encounter Details Date Type Department Care Team Description 04/14/2018 Hospital Medical Records [address] [place] [id number] [place] [address] Social History Tobacco Use Types Packs/Day Years Used Date Smoking Tobacco: Never Smokeless Tobacco: Never Sex Assigned at Date Recorded Not on file documented as of this encounter Plan of Treatment Not on file documented as of this encounter Visit Diagnoses Not on filedocumented in this encounter Care Teams Digital Project Manager Relationship Specialty Start Date End Date Sosa Clement PCP - General Family Practice 07/26/14 documented as of this encounter
--- OUTSIDE RECORDS SUMMARY | 2024-12-25 15:02 | XMS_ITS | Encounter Summary ---
Author Organization [employer] Address [address] [facility] 7t [place] [address] Care Team Providers Care Model Maker Fiberglass Name Role Phone Sosa Clement MD Primary Care Provider [phone] Reason for Visit * Reason Comments Med Refill Encounter Details Date Type Department Care Team ([facility] Contact Info) Description 06/17/2024 Refill [facility] CHC MED & PEDS [address] [place], [place] [phone] Sosa Clement MD [address] [place] [address] Social History Tobacco Use Types Packs/Day Years [...] documented as of this encounter Care Teams Model Maker Fiberglass Relationship Specialty Start Date End Date Sosa Clement MD [address] [place] [address] PCP - General Family Medicine 11/01/18 documented as of this encounter
--- OUTSIDE RECORDS SUMMARY | 2024-12-25 15:02 | XMS_ITS | Encounter Summary ---
Author Organization [facility] Address [address] [place] [address] Care Team Providers Care Wireless Sales Expert Name Role Phone Community, Pcp Primary Care Provider UnavailSong Novoa MD Primary Care Provider Unav ailable Sosa Clement Primary Care Provider Unavailab le Reason for Visit * Reason Comments LAB WORK Encounter Details Date Type Department Care Team Description 11/06/2004 Telephone Adult Medicine [address] [address] Hipolito Perdomo PA-C LAB WORK Social History Tobacco Use Types Packs/Day Years Used Date Smoking Tobacco: Never Assessed Sex Assigned at Date Recorded Not on file documented as of this encounter Miscellaneous Notes * Telephone Encounter - 11/06/2004 11:54 AM ESTCALL RECEIVED. Contact: msg was left for pt in [place] to call back here. per lebron perdomo pt needs repeat cxr(radiology slip in ppu), next week first and second an appt, next week to f/u. documented in this encounter Plan of Treatment Not on file documented as of this encounter Visit Diagnoses Not on filedocumented in this encounter Care Teams Wireless Sales Expert Relationship Specialty Start Date End Date Community, Pcp PCP - General 04/01/11 07/25/14 Song Gamble MD PCP - General 06/29/1994 03/31/11 Sosa Clement PCP - General Family Practice 07/26/14 documented as of this encounter
--- OUTSIDE RECORDS SUMMARY | 2024-12-25 15:02 | XMS_ITS | Clinical Summary ---
Author Organization [employer] Address [address] [facility] [address] [place] [address] Care Team Providers Care Relief Map Modeler Name Role Phone Sosa Clement MD Primary Care Provider [phone] Allergies Active Allergy Reactions Criticality Noted Date [...] t he electric, gas, oil or water [place] threatened to shut off services in your [...] EST Narrative 12/16/2022 11:32 AM EST ? [facility] ? [address] ?[place] [address] ? Mammography Report ? Signed ? Patient: Darshan,Iris ?MR#: [id number] ? : 1955 ?Acct:[id number] ? Age/Sex: 67 / F ?ADM Date: 12/15/22 ? Loc: HO.MAMMO ? Attending Dr: Iftikhar Marin MD ? Ordering Physician: Tomer Moore MD ?Results: 2Benig ?? n Findings ? Date of Service: 12/15/22 ?Follow Up: 1 Year From Orig ?? inal Mammogram ? Procedure(s): MM tomosynthesis screening BI ?? Accession Number(s): [id number] ? cc: Tomer Moore MD ? EXAMINATION: [...] 1129 ? DD/ 0820 ? TD/TT: ? Motor Vehicle Lecturer: HESTER ? Procedure Note Maria Isabel, Dot - 12/16/2022 [facility] [address] [place] [address] [place] [address] Mammography Report Signed Patient: Rick Sexton#: [id number] : 5Acct:[id number] Age/Sex: 67 / FADM Date: 12/15/22 Loc: HO.MAMMO Attending Dr: Iftikhar Marin MD Ordering Physician: Tomer Moore MDResults: 2Benig n Findings Date of Service: 12/15/22Follow Up: 1 Year From Orig ina Mammogram Procedure(s): MM tomosynthesis screening BI Accession Number(s): [id number] cc: Tomer Moore MD EXAMINATION: MM SCREENING [...] in OV> 12/16/22 1129 DD/ 0820 TD/TT: Motor Vehicle Lecturer: HESTER [facility] External Provider IMG BI PROCEDURES Edited Result - Final from Last 3 Months or Most Recently Relevant to Health Maintenance Insurance MEDICARE [facility] OPTIONS Care Teams Relief Map Modeler Relationship Specialty Start Date End Date Sosa Clement MD [address] [place] [id number] PCP - General Family Medicine 11/01/18
--- OUTSIDE RECORDS SUMMARY | 2024-12-25 15:02 | XMS_ITS | Encounter Summary ---
Author Organization [facility] Address [address] [place] [address] Care Team Providers Care Corrugator Supervisor Name Role Phone Sosa Clement Primary Care Provider Unavailab le Reason for Visit * Reason Onset Date Comments refill request 11/30/2018 Encounter Details Date Type Department Care Team Description 11/30/2018 Refill Pulmonology - [address] [place] [phone] Wolf Rosario MD refill request Social History Tobacco Use Types Packs/Day Years Used Date Smoking Tobacco: Never Smokeless Tobacco: Never Sex Assigned at Date Recorded Not on file documented as of this encounter Miscellaneous Notes * Telephone Encounter - Roxana Luna - 11/30/2018 11:43 AM EST Patient would like script to be: E-PRESCRIBED/FAXED TO PHARMACY WHEN WAS THE PATIENT'S LAST APPOINTMENT WITH THE PRESCRIBING PROVIDER? 07/12/2018 Does patient have an upcoming appointment? Yes 12/16/2018 (THE MEDICATION REQUESTED IS ON THE MED LIST ABOVE) Spiriva/tablet inhaler & breo elipta 200mg Both Spiriva & Breo are taken once a day Did you check the Pharmacy information above?: YES Patient wants: 30 -day supply Is this a mail order prescription request ? NO Patients current [place] carrier is: [place] / Product Type: MEDICARE [id number] documented in this encounter Plan of Treatment Not on file documented as of this encounter Visit Diagnoses Not on filedocumented in this encounter Care Teams Corrugator Supervisor Relationship Specialty Start Date End Date Sosa Clement PCP - General Family Practice 07/26/14 documented as of this encounter
--- OUTSIDE RECORDS SUMMARY | 2024-12-25 15:02 | XMS_ITS | Encounter Summary ---
Author Organization [facility] Address [address] [place] [address] Care Team Providers Care Customer Consultant Name Role Phone AngelaSosa gonzalez Primary Care Provider Unavailab le Reason for Visit * Reason Onset Date Comments Prior Authorization 04/25/2018 Encounter Details Date Type Department Care Team Description 04/25/2018 Telephone Pulmonology - [address] [place] [address] Wolf Rosario MD Prior Authorization Social History Tobacco Use Types Packs/Day Years Used Date Smoking Tobacco: Never Smokeless Tobacco: Never Sex Assigned at Date Recorded Not on file documented as of this encounter Miscellaneous Notes * Telephone Encounter - Chelsea Bolton NP - 04/25/2018 2:23 PM EDT Noted She has flonase at home I will order Azelastine nasal spray Thank you * Telephone Encounter - Beverly Dorantes M.A. - 04/25/2018 2:18 PM EDT Spoke to [employer] and covered meds are azelastine nasal spray and olopatadine nasal spray Ins usually won't cover a combined product unless it is medically necessary,if you feel it is medically necessary I can put reason on form and try for you Please reply back to p [phone] Prior Auth pool Beverly Dorantes M.A. [facility] Prior Authorizations Ext [id number] * Telephone Encounter - Rachel Chapman - 04/25/2018 12:31 PM EDT Pre Authorization for Medication-do not complete and send this encounter unless you have the fax from the pharmacy. Is this a Cover My Meds request: Yes -- Hedrick Code [id number] Name of Medication DYMISTA (FAxed to PA dept Cynthia) Dose of Medication How does patient take this med? What Pharmacy did the fax come from: [facility] fax #: [phone] [employer] Information from fax: What Prescription Plan does the patient have? BIN/PCN if applicable: Cardholder ID: Person Code: Relationship Code: Help desk phone: documented in this encounter Plan of Treatment Not on file documented as of this encounter Visit Diagnoses Not on filedocumented in this encounter Care Teams Customer Consultant Relationship Specialty Start Date End Date Sosa Celment PCP - General Family Practice 07/26/14 documented as of this encounter
--- OUTSIDE RECORDS SUMMARY | 2024-12-25 15:02 | XMS_ITS | Encounter Summary ---
Author Organization [employer] Address [address] [facility] 7t [place] [address] Care Team Providers Care Corporate Real Estate Manager Name Role Phone Sosa Clement MD Primary Care Provider [phone] Reason for Visit * Reason Comments Med Refill Encounter Details Date Type Department Care Team ([facility] Contact Info) Description 06/26/2024 Refill [facility] CHC MED & PEDS [address] [place], [place] [phone] Sosa Clement MD [address] [place] [address] Social History Tobacco Use Types Packs/Day Years [...] documented as of this encounter Care Teams Corporate Real Estate Manager Relationship Specialty Start Date End Date Sosa Clement MD [address] [place] [address] PCP - General Family Medicine 11/01/18 documented as of this encounter
--- OUTSIDE RECORDS SUMMARY | 2024-12-25 15:02 | XMS_ITS | Encounter Summary ---
Author Organization [employer] Address [address] [facility] [address] [place] [address] Care Team Providers Care Soft Boarder Name Role Phone Sosa Clement MD Primary Care Provider [phone] Encounter Details Date Type Department Care Team (Late st Contact Info) Description 04/21/2023 Abstract [facility] MEDICINE [address] [place] [address] Sosa Clement MD [address] [place] [address] Social History Tobacco Use Types Packs/Day Years [...] documented as of this encounter Care Teams Soft Boarder Relationship Specialty Start Date End Date Sosa Clement MD [address] [place] [address] PCP - General Family Medicine 11/01/18 documented as of this encounter
--- OUTSIDE RECORDS SUMMARY | 2024-12-25 15:02 | XMS_ITS | Patient Health Record ---
Author Organization [facility] Address [address] [place] [address] Care Team Providers Care Senior Finance Manager Name Role Phone Jesús Cordoba Primary Care Provider Unavailab Delmar Ramirez Jr Unavailable ALLERGIES No Known Allergies RESULTS Component Value Reference Range Notes Pathology Reviewed date:10/17/2024 03:41:31 PM Interpretation: Performing Lab:[facility], [address] [place] [phone] Notes/Report: Complete Blood Count no Diff Reviewed date:10/17/2024 03:39:35 PM Interpretation: Performing Lab:[facility], [address] [place] [phone] Notes/Report: White Blood Count 7.6 4.8-10.8 X10*3/uL [...] Panel Reviewed date:10/17/2024 03:38:47 PM Interpretation: Performing Lab:[facility], [address] [place] [phone] Notes/Report: Bilirubin Total 0.5 0.0-1.0 mg/dL Bilirubin Direct 0.2 0.0-0.5 mg/dL Aspartate Amino Transferase 17 5-31 U/L Alanine Aminotransferase 11 0-31 U/L Total Protein 6.8 6.5-8.0 g/dL Albumin Level 3.8 3.5-5.0 g/dL Alkaline Phosphatase 164 39-117 U/L Lipase Reviewed date:10/17/2024 03:39:42 PM Interpretation: Performing Lab:[facility], [address] [place] [phone] Notes/Report: Lipase 17 8-78 U/L REASON FOR REFERRAL No Information MEDICATIONS Medication SIG (Take, Route, Frequency, Duration) Notes Start Date End Date Status Topiramate 25 MG Oral for 30 A ctive Trelegy Ellipta 200-62.5-25 MCG/ACT Inhalation for 30 Act demi Levothyroxine Sodium 100 MCG Oral for 30 Active Montelukast Sodium 10 MG TAKE 1 TABLET BY MOUTH EVERY DAY AT BEDTIME Oral for 30 [id number],Unavaila ble Active Ibuprofen 800 MG Oral for 6 Days Active Calcium Carb-Cholecalciferol 600-10 MG-MCG TAKE 1 TABLET BY MOUTH TWICE A DAY Oral for 90 Days Active Ventolin HFA 108 (90 Base) MCG/ACT INHALE 2 PUFFS EVERY 4 TO 6 HOURS NEEDED FOR SHORTNESS OF BREATH OR FOR WHEEZE Inhalation for 25 Active Pantoprazole Sodium 40 MG TAKE 1 TABLET BY MOUTH EVERY DAY Oral for 90 Active IMMUNIZATIONS Vaccine Route Administration Date Status Comme nts Influenza Unknown 09/06/2024 Administered Influenza Unknown 07/18/2024 Administered SOCIAL HISTORY Tobacco Use: Social History [...] Notes Problem Epigastric pain (R10.13) Active confirmed 19405781 Problem Gastro-esophageal reflux disease without esophagitis (K21.9) Active confirmed Gastro-esophag eal reflux disease without esophagitis (205310325) Problem Elevated LFTs (R79.89) Active confirmed 790161853 Problem Gastroesophageal reflux disease without esophagitis (K21.9) Active confirmed 722993413 Problem Abnormal UGI series (R93.3) Active confirmed 422189341 VITAL SIGNS Temperature 98.4 degrees Fahrenheit 12/20/2024 Blood pressure diastolic 01 mm Hg 12/20/2024 Height 5 ft 4 in in 12/20/2024 Blood pressure systolic 001 mm Hg 12/20/2024 Weight 180 lbs 12/20/2024 BMI 30.89 kg/m2 12/20/2024 Encounters Encounter Location Date Provider Diagnosis [facility] [address] [place] [id number] 10/10/2024 Delmar Zhang Jr Epigastric pain R10.13 ; Abnormal UGI series R93.3 and Gastro-esophageal reflux disease without esophagitis K21.9 [facility] [address] [place] [phone] 10/16/2024 Delmar Zhang Jr [facility] [address] [place] [phone] 09/20/2024 Delmar Zhang Jr Epigastric pain R10.13 and Abnormal UGI series R93.3 [facility] [address] [place] [phone] 12/20/2024 Delmar Zhang Jr Elevated LFTs R79.89 and Gastroesophageal reflux disease without esophagitis K21.9 [facility] [address] [place] [phone] 07/18/2024 Delmar Zhang Jr [facility] [address] [place] [phone] 10/13/2024 Delmar Zhang Jr Nausea and vomiting, unspecified vomiting type R11.2 [facility] [address] [place] [phone] 10/13/2024 Delmar Zhang Jr [facility] [address] [place] [address] 10/17/2024 Delmar Zhang Jr ASSESSMENTS Encounter Date Diagnosis Assessment Notes Treatment Notes Treatment Clinical Notes 10/10/2024 Epigastric pain (ICD -10 - R10.13) 10/10/2024 Abnormal UGI series (ICD-10 - R93.3) 09/20/2024 Epigastric pain (ICD -10 - R10.13) Digestive diseases material was printed 09/20/2024 Abnormal UGI series (ICD-10 - R93.3) 12/20/2024 Elevated LFTs (ICD-1 0 - R79.89) 12/20/2024 Gastroesophageal ref lux disease without esophagitis (ICD-10 - K21.9) 10/13/2024 Nausea and vomiting, unspecified vomiting type (ICD-10 - R11.2) 10/10/2024 Gastro-esophageal reflux disease without esophagitis (ICD-10 - K21.9) PLAN OF TREATMENT Pending Test Test Name Order Date LIVER PROFILE 10/13/2024 LIVER PROFILE 12/20/2024 LIPASE 10/13/2024 IRON + IBC (FE) 12/20/2024 FERRITIN 12/20/2024 CBC w/o DIFF 10/13/2024 CBC w/o DIFF 12/20/2024 HEPATITIS A,B,C PROFILE 12/20/2024 MITOCHONDRIAL AB 12/20/2024 SMOOTH MUSCLE ANTIBODIES 12/20/2024 US ABD 12/20/2024 Liver Fibrosis Pnl 12/20/2024 FREDDIE Reflex Titer and Pattern 12/20/2024 Future Test Test Name Order Date UPPER GI ENDOSCOPY 09/20/2024 Next Appt Details Provider Name:Delmar busby Jr, 12/24/2025 09:00:00 AM, [address], [address], [place], [address], Insurance Providers Payer Name Payer Address Payer Phone Subscriber Number Group Number Insured Name Patient Relationship to Insured Coverage Start Date Coverage End Date [facility] [address] [address] [place] [address] [id number] TONNY, IRIS Self - patient is the insured MEDICAL (GENERAL) HISTORY Medical History History ICD Code Asthma Hypothyroidism Anxiety/depression DCIS left breast status post lumpectomy, XRT, tamoxifen Diverticulosis/colon polyps, colonoscopy 01/17, tubular adenoma. EGD 10/24, 5 cm hiatal hernia, esophagit is on biopsy, no BE/HP Surgical History Surgery Date(Month/Year) Cholecystectomy Tubal ligation Mandibular surgery 1979
== END 2024-12-25 14:09 | disposition home or self-care (01) ==
PROVIDERS: PCP Physician Assistant; Visit Provider Physician Assistant
DX: M17.12 Unilateral primary osteoarthritis, left knee (principal)
CPT/HCPCS: 20610; 99213

== ENCOUNTER → 2024-12-25 13:18 | Outpatient (BNV) | payer MEDICARE, SELFPAY | PROVIDERS: Visit Provider Radiology Diagnostic Radiology | DX: M25.562 Pain in left knee (principal); M17.12 Unilateral primary osteoarthritis, left knee | CPT/HCPCS: 73562 ==

== ENCOUNTER 2025-01-08 13:09 | Outpatient (REF) | payer MEDICARE, MEDICAID, SELFPAY ==
--- OUTSIDE RECORDS SUMMARY | 2025-01-08 14:50 | XMS_ITS | Encounter Summary ---
Author Organization [employer] Address [address] [facility] 7t [place] [address] Care Team Providers Care Diesel Technology Instructor Name Role Phone Sosa Clement MD Primary Care Provider [phone] Encounter Details Date Type Department Care Team (Late st Contact Info) Description 04/21/2023 Abstract [facility] [address] [place] [address] Sosa Clement MD [address] [place] [address] Social History Tobacco Use Types Packs/Day Years [...] documented as of this encounter Care Teams Diesel Technology Instructor Relationship Specialty Start Date End Date Sosa Clement MD [address] [place] [address] PCP - General Family Medicine 11/01/18 documented as of this encounter
--- OUTSIDE RECORDS SUMMARY | 2025-01-08 14:51 | XMS_ITS | Encounter Summary ---
Author Organization [employer] Address [address] [facility] [address]t [place] [address] Care Team Providers Care Upholstery Cleaner Name Role Phone Sosa Clement MD Primary Care Provider [phone] Reason for Visit * Reason Comments Med Refill Encounter Details Date Type Department Care Team ([facility] st Contact Info) Description 02/03/2023 Refill [facility] [address] [place], [place] [phone] Iftikhar Marin MD [address] [place] [address] Severe persistent asthma with allergic rhinitis with [...] exacerbation documented in this encounter Care Teams Upholstery Cleaner Relationship Specialty Start Date End Date Sosa Clement MD [address] [place] [address] PCP - General Family Medicine 11/01/18 documented as of this encounter
--- OUTSIDE RECORDS SUMMARY | 2025-01-08 14:51 | XMS_ITS | Encounter Summary ---
Author Organization [employer] Address [address] [facility] 7t [place] [address] Care Team Providers Care Stick Feeder Name Role Phone Sosa Clement MD Primary Care Provider [phone] Reason for Visit * Reason Comments Med Refill Encounter Details Date Type Department Care Team ([facility] Contact Info) Description 06/17/2024 Refill [facility] MED & PEDS [address] [place], [place] [phone] Sosa Clement MD [address] [place] [address] Social History Tobacco Use Types Packs/Day Years [...] documented as of this encounter Care Teams Stick Feeder Relationship Specialty Start Date End Date Sosa Clement MD [address] [place] [address] PCP - General Family Medicine 11/01/18 documented as of this encounter
--- OUTSIDE RECORDS SUMMARY | 2025-01-08 14:51 | XMS_ITS ---
Author Organization [facility] Address [address] [facility] [address] [place] [address] Care Team Providers Care Braille And Talking Books Clerk Name Role Phone Yanira Cordobas Primary Care Provider Unavailab Delmar Ramirez Jr [phone] REASON FOR VISIT labs and pathology Encounters Encounter Location Date Provider Diagnosis [facility] [address] [facility] [address] [place] [address] 10/17/2024 Delmar Zhang Jr Plan Of Treatment Next Appt Details Provider Name:Delmar busby Jr, 12/24/2025 09:00:00 AM, [address] [place] [address], [address], [place], [address], Progress Notes * LION LANCASTER NDOB:1955 (69 yo F)Acc No.[id number]:10/17/2024 Patient:?LION LANCASTER :1955???Age:69 Y???Sex:Female Address:[address] [place] [address], [place], [address] * true * Date:? Generated for Nuviai delmy/Iveth/eTransmitting on:?01/08/2025 02:51 PM EDT
--- OUTSIDE RECORDS SUMMARY | 2025-01-08 14:51 | XMS_ITS | Clinical Summary ---
Author Organization [employer] Address [address] [facility] 7[address] [place] [address] Care Team Providers Care Monotype Mechanic Name Role Phone Sosa Clement MD Primary Care Provider [phone] Allergies Active Allergy Reactions Criticality Noted Date Comments Cat Dander 12/16/2018 Ciprofloxacin Unknown 11/13/2010 Other reaction(s): unspecified Penicillins 07/05/2013 Vancomycin Unknown 11/13/2010 Medications levothyroxine (Synthroid, Levoxyl) 100 MCG tabletIndications :Acquired hypothyroidism TAKE 1 TABLET BY MOUTH ONCE DAILY 30 tablet 5 11/03/19 23 Active fluticasone (Flovent) 220 MCG/ACT inhalerIndication s:Severe persistent asthma with allergic rhinitis with acute exacerbation Inhale 1 puff in the morning and at bedtime. Rinse mouth with water after use to reduce aftertaste and incidence of candidiasis. Do not swallow. 12 g 11 12/24/19 23 Active Incruse Ellipta 62.5 MCG/ACT aerosol powder INHALE 1 PUFF EVERY DAY AT THE SAME TIME 01/07/20 23 Active predniSONE (Deltasone) 20 MG tablet Take 40 mg by mouth in the morning. 02/04/20 23 Active pantoprazole (ProtoNix) 40 MG EC tablet Take 40 mg by mouth in the morning. 03/09/20 23 Active SM Fiber Laxative 500 MG tablet Take 1 tablet by mouth 3 times daily. 01/07/20 23 Active clonazePAM (KlonoPIN) 0.5 MG tablet Take 0.5 mg by mouth. 05/20/20 20 Active acetaminophen (Tylenol 8 Hour) 650 MG ER tablet TAKE 2 TABLETS BY MOUTH EVERY 8 HOURS NEEDED SWALLOW WHOLE WITH WATER DO NOT BREAK, CRUSH, DISSOLVE OR CHEW 05/15/20 22 Active albuterol (2.5 MG/3ML) 0.083% nebulizer solution Inhale 1 vial. 04/22/20 18 Active Azelastine HCl 0.15 % solution Administer 2 sprays into affected nostril(s). 04/25/20 18 Active cetirizine (ZyrTEC) 10 MG tablet Take 10 mg by mouth in the morning. 05/15/20 22 Active ketotifen (Zaditor) 0.025 % ophthalmic solution Apply daily to eyes 10 mL 11 04/07/20 23 Active cyclobenzaprine (Flexeril) 10 MG tablet TAKE 1 TABLET BY MOUTH AT BEDTIME 30 tablet 05/31/20 23 Active citalopram (CeleXA) 20 MG tablet TAKE 1 TABLET BY MOUTH DAILY 30 tablet 11 07/06/20 23 Active D3 Super Strength 50 MCG (2000 UT) capsuleIndication s:Vitamin D deficiency TAKE 1 CAPSULE BY MOUTH TWICE DAILY 180 capsule 1 07/29/20 23 Active hydrOXYzine HCl (Atarax) 25 MG tablet TAKE 1 TABLET BY MOUTH EVERY TWELVE HOURS NEEDED FOR ITCHING 60 tablet 3 02/04/20 24 Active levothyroxine (Synthroid, Levoxyl) 100 MCG tabletIndications :Acquired hypothyroidism TAKE 1 TABLET BY MOUTH EVERY DAY BEFORE BREAKFAST 30 tablet 1 01/04/20 25 Active levothyroxine (Synthroid, Levoxyl) 100 MCG tabletIndications :Acquired hypothyroidism TAKE 1 TABLET BY MOUTH EVERY DAY BEFORE BREAKFAST 30 tablet 5 06/01/20 24 2024 Discontinued Active Problems Problem Noted Date Diagnosed Date [...] 03/15/2012 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 I have sharmin nyasia 09/11/[address] you li [...] 07/28/2018, Additional history exists Mammogram 12/15/2024 12/15/2022, 090 12/2019, 10/27/2018 DTaP/Tdap/Td Vaccines (2 - Td [...] EST Narrative 12/16/2022 11:32 AM EST ? [facility]'s Page ? [address] ?[place] [address] ? Mammography Report ? Signed ? Patient: Darshan,Iris ?MR#: [id number] ? : 1955 ?Acct:[id number] ? Age/Sex: 67 / F ?ADM Date: 02/14/23 ? Loc: HO.MAMMO ? Attending : Iftikhar Marin MD ? Ordering Physician: Tomer Moore MD ?Results: 2Benig ?? n Findings ? Date of Service: 12/15/22 ?Follow Up: 1 Year From Orig ?? inal Mammogram ? Procedure(s): MM tomosynthesis screening BI ?? Accession Number(s): [id number] ? cc: Tomer Moore MD ? EXAMINATION: [...] signed by Irving Bragg MD in OV> ?02/15/23 1129 ? DD/ 0820 ? TD/TT: ? Patient Flow Coordinator: HESTER ? Procedure Note Donotuseinterpreter, Image - 12/16/2022 [facility] [address] [place] [address] Mammography Report Signed Patient: Rick Sexton#: [id number] : 5Acct:[id number] Age/Sex: 67 / FADM Date: 12/15/22 Loc: HO.MAMMO Attending Dr: Iftikhar Marin MD Ordering Physician: Tomer Mooreesults: 2Benig n Findings Date of Service: 12/15/22Follow Up: 1 Year From Orig inal Mammogram Procedure(s): MM tomosynthesis screening BI Accession Number(s): [id number] cc: Tomer Moore MD EXAMINATION: MM SCREENING [...] in OV> 12/16/22 1129 DD/ 0820 TD/TT: Patient Flow Coordinator: HESTER [facility] External Provider IMG BI PROCEDURES Edited Result - Final from Last 3 Months or Most Recently Relevant to Health Maintenance Insurance MEDICARE Member Subscriber Plan / Payer ( fective 2022-Present) Name:Nicol Sexton Member ID:[id number] Relation to Subscriber:Self Name:Nicol Sexton Subscriber ID:[id number] Payer ID:STATE Group ID:Not on file Type:Medicare Address: [place] [employer] [facility] [address] [address] [facility] [employer] Care Teams Monotype Mechanic Relationship Specialty Start Date End Date Sosa Clement MD [address] [place] [address] PCP - General Family Medicine 1/1/19
--- OUTSIDE RECORDS SUMMARY | 2025-01-08 14:51 | XMS_ITS | Encounter Summary ---
Author Organization [employer] Address [address] [facility] 7t [place] [address] Care Team Providers Care Contact Lens Assistant Name Role Phone Sosa Clement MD Primary Care Provider [phone] Reason for Visit * Reason Comments Med Refill Encounter Details Date Type Department Care Team ([facility] st Contact Info) Description 01/03/2025 Refill [facility]EDS [address] [place], [place] [phone] Sosa Clement MD [address] [place] [address] Acquired hypothyroidism Social History Tobacco Use Types Packs/Day Years [...] as of this encounter Visit Diagnoses Diagnosis Acquired hypothyroidism Unspecified hypothyroidism documented in this encounter Additional Health Concerns Assessment Noted Time PHQ-9 Depression Total Score: 16 023 9:12 AM EDT documented as of this encounter Care Teams Contact Lens Assistant Relationship Specialty Start Date End Date Sosa Clement MD [address] [place] [address] PCP - General Family Medicine 11/01/18 documented as of this encounter
--- OUTSIDE RECORDS SUMMARY | 2025-01-08 14:51 | XMS_ITS ---
Author Organization [facility] Address [address] [place] [address] [place] [address] Care Team Providers Care Veterinary Meat Inspector Name Role Phone Jesús Cordoba Primary Care Provider Unavailab Delmar Ramirez Jr REASON FOR VISIT epigastric pain Encounters Encounter Location Date Provider Diagnosis [facility] [address] [place] [phone] 10/16/2024 Delmar Zhang Jr Plan Of Treatment Next Appt Details Provider Name:Delmar busby Jr, 12/24/2025 09:00:00 AM, [address] [place] [address], [address], [place], [address], Progress Notes * LION LANCASTER NDOB:1955 (69 yo F)Acc No.[id number]:10/16/2024 Progress Notes Patient:?LION LANCASTER Provider:?Delmar Zhang MD :1955???Age:69 Y???Sex:Female D ate:10/16/2024 Address:[address] [place], [place] [id number] Pcp:Jesús Cordoba Subjective: * Chief Complaints: * ???1. Epigastric pain. * Medical History:? Objective: * Vitals:? Assessment: Plan: * Treatment: * * The named appointment provid er may or may not be the originator of this progress note, and it is not deemed complete until electronically signed by the appointment provider. Sign off status: Pending * Provider:?Delmar Zhang MD Date:?1 12/17/2023 Generated for Eva brock/Iveth/Jaret on:?01/08/2025 02:50 PM EDT
--- OUTSIDE RECORDS SUMMARY | 2025-01-08 14:51 | XMS_ITS ---
Author Organization [facility] Address [address] [place] [address] Care Team Providers Care Revenue Accountant Name Role Phone Jesús Cordoba Primary Care Provider Unavailab Delmar Ramirez Jr Unavailable [phone] Allergies No Known Allergies REASON FOR VISIT Patient presents today for acid RELUX, GERD Medications Medication SIG (Take, Route, Frequency, Duration) Notes Start Date End Date Status Trelegy Ellipta 200-62.5-25 MCG/ACT Inhalation for 30 Act demi Levothyroxine Sodium 100 MCG Oral for 30 Active Montelukast Sodium 10 MG TAKE 1 TABLET BY MOUTH EVERY DAY AT BEDTIME Oral for 30 [id number],Unavaila ble Active Ibuprofen 800 MG Oral for [...] MOUTH EVERY DAY Oral for 90 Active Social History Tobacco Use: Social History Observation Description Date Details (start date - stop date) Never Smoker NA - NA Tobacco Use/Smoking Question Answer Notes Patient is a nonsmoker Alcohol Screen Question Answer Notes Did you have a drink containing alcohol in the p ast year? No Points 0 Interpretation Negative Problems Problem Type SNOMED Code ICD Code Onset Dates Problem Status W/U Status Risk Notes Problem 354259000 Elevated LFTs (R79.89) Active confirmed Problem 042451050 Gastroesophageal reflux disease without esophagitis (K21.9) Active confirmed Vital Signs Temperature 98.4 degrees Fahrenheit 12/20/19 25 Blood pressure systolic 001 mm Hg 12/20/19 25 Blood pressure diastolic 01 mm Hg 025 Height 5 ft 4 in in 12/20/2024 Weight 180 lbs 12/20/2024 BMI 30.89 kg/m2 12/20/2024 Encounters Encounter Location Date Provider Diagnosis [facility] [address] [place] [address] 12/20/2024 Delmar Zhang Jr Elevated LFTs R79.89 and Gastroesophageal reflux disease without esophagitis K21.9 Assessments Encounter Date Diagnosis (ICD Code) Assessment Notes Treatment Notes Treatment Clinical Notes Section Notes 12/20/2024 Elevated LFTs (ICD-10 - R79.89) We discussed gastroesophageal reflux disease today. We discussed diet, lifestyle modifications, and weight management. We recommended she continue pantoprazole. For her elevated liver function tests, she'll have additional laboratory studies and ultrasound imaging. Followup will be in one year. 12/20/2024 Gastroesophageal reflux disease without esophagitis (ICD-10 - K21.9) We discussed gastroesophageal reflux disease today. We discussed diet, lifestyle modifications, and weight management. We recommended she continue pantoprazole. For her elevated liver function tests, she'll have additional laboratory studies and ultrasound imaging. Followup will be in one year. Plan Of Treatment Pending Test Test Name Order Date LIVER [...] 09:00:00 AM, [address], [address], [place], [address], Progress Notes * LION LANCASTER NDOB:1955 (69 yo F)Acc No.[id number]:12/20/2024 Progress Notes Patient:LION NAIR Provider:?Delmar Zhang MD :1955???Age:69 Y???Sex:Female D ate:12/20/2024 Address:[address] [place] [address], [place] [address] Pcp:Jesús Cordoba Subjective: * Chief Complaints: * ???1. Patient presents today for acid RELUX, GERD. * Medical History:?Asthma, Hyp othyroidism, Anxiety/depression, DCIS left breast status post lumpectomy, XRT, tamoxifen, Diverticulosis/colon polyps, colonoscopy 01/17, tubular adenoma., EGD 10/24, 5 cm hiatal hernia, esophagitis on biopsy, no BE/HP. * Surgical History:?Mandibular surgery 1978, Tubal ligation , Cholecystectomy . * Family History:?Father: dece ased.?Mother: , diagnosed with Inflammatory bowel disease.? No family history of colon cancer or liver cancer. * Social History:?Tobacco Use:?Tobacco Use/Smoking?Patient is a?nonsmoker.?Drugs/Alcohol:?Alcohol Screen?Did you have a drink containing alcohol in the past year??No,?Points?0,?Interpretation?Negative.?Miscellaneous:?Marital status: . Occupation: retired. * Medications:?Taking [place] ast Sodium 10 MG Tablet TAKE 1 TABLET BY MOUTH EVERY DAY AT BEDTIME Oral , Notes: [id number],Unavailable, Taking Trelegy Ellipta 200-62.5-25 MCG/ACT Aerosol Powder Breath Activated Inhalation , Taking Levothyroxine Sodium 100 MCG Tablet Oral , Taking Topiramate 25 MG Tablet Oral , Taking Ventolin HFA 108 (90 Base) MCG/ACT Aerosol Solution INHALE 2 PUFFS EVERY 4 TO 6 HOURS NEEDED FOR SHORTNESS OF BREATH OR FOR WHEEZE Inhalation , Taking Pantoprazole Sodium 40 MG Tablet Delayed Release TAKE 1 TABLET BY MOUTH EVERY DAY Oral , Taking Calcium Carb-Cholecalciferol 600-10 MG-MCG Tablet TAKE 1 TABLET BY MOUTH TWICE A DAY Oral , Taking Ibuprofen 800 MG Tablet Oral , Discontinued Ondansetron HCl 4 MG Tablet 1 tablet Orally every 8 hrs as needed vor nausea and vomiting, Medication List reviewed and reconciled with the patient * Allergies:?N.K.D.A. Objective: * Vitals:?Wt: 180 lbs, Ht: 5 f t 4 in, BMI: 30.89 Index, BP: 001/01 mm Hg, Temp: 98.4, Wt-k.65. * Examination: ???General Examination: ???On examination today, she appears well. Skin is anicteric. Lungs are clear. Heart shows regular rate and rhythm. Abdomen is soft without focal masses or tenderness. Extremities are without edema. Assessment: * Assessment: 1.?Gastroesophageal reflux d isease without esophagitis - K21.9 (Primary)?2.?Elevated LFTs - R79.89? We discussed gastroesophagea l reflux disease today. We discussed diet, lifestyle modifications, and weight management. We recommended she continue pantoprazole. For her elevated liver function tests, she'll have additional laboratory studies and ultrasound imaging. Followup will be in one year. Plan: * Treatment: * * Procedure Codes:?3017F COLOR ECTAL CA SCREEN DOC REV, G9903 Pt scrn tbco id as non user, G9745 DOC RSN FOR NOT SCREEN/REC F/U HBP * Preventive Medicine:? ??Counseling:?Care goal follow-up plan:?Above Normal BMI Follow-up?Giving encouragement to exercise,?BMI management provided?Yes.? ??Urinary Incontinence:?Urinary Incontinence?Assessment:?Absent,?Plan of care documented:?No, reason not specified.? ??Screenings:?Fall Risk Screening?Fall Risk Assessment:?No falls in the past year,?Screening:?No falls in the past year,?Assessment:?Not performed, no reason specified,?Plan of Care:?Not documented, no reason specified.? * Follow Up:?2 Months, 1 Year * * Sign off status: Completed true * Provider:?Delmar Zhang MD Date:?0 12/20/2024 Generated for Eva brock/Iveth/eTadamsmitting on:?01/08/2025 02:50 PM EDT History and Physical Notes * Examination Category Sub-Category Detail Notes Category Not es General Examination On exami nation today, she appears well. Skin is anicteric. Lungs are clear. Heart shows regular rate and rhythm. Abdomen is soft without focal masses or tenderness. Extremities are without edema.
--- OUTSIDE RECORDS SUMMARY | 2025-01-08 14:51 | XMS_ITS | Encounter Summary ---
Author Organization [employer] Address [address] [facility] [address] [place] [address] Care Team Providers Care Cognos Consultant Name Role Phone Sosa Clement MD Primary Care Provider [phone] Reason for Visit * Reason Onset Date Comments Referral 12/17/2022 Encounter Details Date Type Department Care Team ([facility] st Contact Info) Description 12/17/2022 Telephone [facility] [address] [place], [place] [phone] Sosa Clement MD [address] [place] [address] Referral Social History Tobacco Use Types Packs/Day [...] is Kenyatta and their fax number is [phone]. If any questions please contact pt at [phone] Armenian Speaker documented in this encounter Plan of Treatment Not on file documented as of this encounter Visit Diagnoses Not on filedocumented in this encounter Care Teams Cognos Consultant Relationship Specialty Start Date End Date Sosa Clement MD [address] [place] [phone] PCP - General Family Medicine 11/01/18 documented as of this encounter
--- OUTSIDE RECORDS SUMMARY | 2025-01-08 14:51 | XMS_ITS | Encounter Summary ---
Author Organization [employer] Address [address] [facility] [address] [place] [address] Care Team Providers Care Floor Cashier Name Role Phone Sosa Clement MD Primary Care Provider [phone] Reason for Visit * Reason Comments Med Refill Encounter Details Date Type Department Care Team ([facility] Contact Info) Description 06/26/[address] [facility] PEDS [address] [place], [place] [phone] Sosa Clement MD [address] [place] [address] Social History Tobacco Use Types Packs/Day Years [...] documented as of this encounter Care Teams Floor Cashier Relationship Specialty Start Date End Date Sosa Clement MD [address] [place] [address] PCP - General Family Medicine 11/01/18 documented as of this encounter
--- OUTSIDE RECORDS SUMMARY | 2025-01-08 14:51 | XMS_ITS | Patient Health Record ---
Author Organization [facility] Address [address] [place] [address] Care Team Providers Care Early Morning Name Role Phone Jesús Cordoba Primary Care Provider Unavailab Delmar Ramirez Jr Unavailable Allergies No Known Allergies Results Component Value Reference Range Notes Pathology Reviewed date:10/17/2024 03:41:31 PM Interpretation: Performing Lab:[facility], [address] [place] [phone] Notes/Report: -------- -------- Name: Lion Lancaster Age /Sex: 69/F : 1955 Unit#: [id number] Attend Dr: Delmar Zhang MD Re10/10/24 Status : [facility] Location: [facility] Disch: -------- -------- SPEC : [id number] RECD : 10/10/24 STATUS: LATOSHA ADORNO NUM: [id number] ALISHA: 10/10/[address] [facility] [address]: Delmar Zhang MD ENTERED: 10/10/24- SP TYPE: Surgical OTHR DR: Fahad Gutierrez MD ORDERED: HE Stain/3, Gross Micro L4/2, IHC, Special st. 2/2, H. pylori, AB/PAS/2 Diagnosis A. Stomach, antrum, biopsy: Reactive gastropathy with background mild chronic inactive inflammation; no Helicobacter organisms seen. B. EG junction, biopsy: - Cardiofundic-type mucosa with moderate chronic inactive inflammation; no intestinal metaplasia seen. - Active esophagitis (maximum eosinophil count 2 per high powered field). Clinical History Pre-Op Dx: Epigastri c pain, abnormal findings Post-Op Dx: Hiatal h ernia, GERD Microscopic Description A, B. Microscopic se ctions examined. No metaplastic changes are seen, supported by AB/PAS stains (A and B); no Helicobacter organisms are seen, supported by H. pylori immunostain (A). Material Received A. Antrum B. EG junction Gross Description Received in two parts. Part A: Received in formalin labeled ?antrum? are 2 sarmiento rectangular tissue fragments each measuring 0.3 cm, montiel bmitted in toto in a cassette labeled A. Part B: Received in formalin labeled ?EG junction? are 5 villar-sarmiento irregular tissue fragments each measu ring 0.25 cm, submitted in toto in a cassette labeled B. CEDS Special studies orde red and performed: Immunostain for H. pylori on A; AB/PAS stains on A and B CONTINUED ON NEXT PAGE -------- -------- Name: Lion Lancaster Age /Sex: 69/F : 1955 Unit#: [id number] Attend Dr: Delmar Zhang MD Re10/10/24 Status : [facility] Location: [facility] Disch: -------- -------- SPEC : [id number] RECD : 10/10/24-1148 STATUS: LATOSHA ADORNO NUM: [id number] ALISHA: 10/10/24-[address] [facility] [address]: Delmar Zhang MD ENTERED: 10/10/24- SP TYPE: Surgical OTHR DR: Fahad Gutierrez MD ORDERED: HE Stain/3, Gross Micro L4/2, IHC, Special st. 2/2, H. pylori, AB/PAS/2 Copies To: Delmar Zhang MD [address] [place] [address] Fahad Gutierrez MD [facility] Primary Care,[address] [place] [address] [email or web address] -------- -------- Signed (si gnature on file) Troy Donato MD 10/12/24 1007 -------- -------- END OF REPORT Complete Blood Count no Diff Reviewed date:10/17/2024 03:39:35 PM Interpretation: Performing Lab:[facility], [address] [place] [phone] Notes/Report: White Blood Count 7.6 4.8-10.8 X10*3/uL [...] Panel Reviewed date:10/17/2024 03:38:47 PM Interpretation: Performing Lab:[facility], [address] [place] [phone] Notes/Report: Bilirubin Total 0.5 0.0-1.0 mg/dL Bilirubin Direct 0.2 0.0-0.5 mg/dL Aspartate Amino Transferase 17 5-31 U/L Alanine Aminotransferase 11 0-31 U/L Total Protein 6.8 6.5-8.0 g/dL Albumin Level 3.8 3.5-5.0 g/dL Alkaline Phosphatase 164 39-117 U/L Lipase Reviewed date:10/17/2024 03:39:42 PM Interpretation: Performing Lab:[facility], [address] [place] [phone] Notes/Report: Lipase 17 8-78 U/L Reason For Referral No Information Medications Medication SIG (Take, Route, Frequency, Duration) Notes Start Date End Date Status Topiramate 25 MG Oral for 30 A ctive Trelegy Ellipta 200-62.5-25 MCG/ACT Inhalation for 30 Act demi Levothyroxine Sodium 100 MCG Oral for 30 Active Montelukast Sodium 10 MG TAKE 1 TABLET BY MOUTH EVERY DAY AT BEDTIME Oral for 30 U53024,Unavaila ble Active Ibuprofen 800 MG Oral for [...] MOUTH EVERY DAY Oral for 90 Active Immunizations Vaccine Route Administration Date Status Comme nts Influenza Unknown 09/06/2024 Administered Influenza Unknown 07/18/2024 Administered Social History Tobacco Use: Social History Observation [...] Problem Status W/U Status Risk Notes Problem 27458009 Epigastric pain (R10.13) Active confirmed Problem Gastro-esophage al reflux disease without esophagitis (341604471) Gastro-esophageal reflux disease without esophagitis (K21.9) Active confirmed Problem 979671305 Elevated LFTs (R79.89) Active confirmed Problem 978650743 Gastroesophageal reflux disease without esophagitis (K21.9) Active confirmed Problem 070858105 Abnormal UGI ser ies (R93.3) Active confirmed Vital Signs Temperature 98.4 degrees Fahrenheit 12/20/2024 Blood pressure diastolic 01 mm Hg 12/20/2024 Height 5 ft 4 in in 12/20/2024 Blood pressure systolic 001 mm Hg 12/20/2024 Weight 180 lbs 12/20/2024 BMI 30.89 kg/m2 12/20/2024 Encounters Encounter Location Date Provider Diagnosis [facility] Outpatient [address] [place] [id number] 10/10/2024 Delmar Zhang Jr Epigastric pain R10.13 ; Abnormal UGI series R93.3 and Gastro-esophageal reflux disease without esophagitis K21.9 [facility] [address] [place] [address] 09/20/2024 Delmar Zhang Jr Epigastric pain R10.13 and Abnormal UGI series R93.3 [facility] [address] [place], [place] [address] [address] 12/20/2024 Delmar Zhang Jr Elevated LFTs R79.89 and Gastroesophageal reflux disease without esophagitis K21.9 [facility] [address] [place], [place] [address] [address] 07/18/2024 Delmar Zhang Jr [facility] [address] [place] [address] 10/13/2024 Delmar Zhang Jr Nausea and vomiting, unspecified vomiting type R11.2 [facility] [address] [place] [address] 10/13/2024 Delmar Zhang Jr [facility] [address] [place] [address] [address] 10/17/2024 Delmar Zhang Jr Assessments Encounter Date Diagnosis (ICD Code) Assessment Notes Treatment Notes Treatment Clinical Notes Section Notes 10/10/2024 Epigastric pain (ICD-10 - R10.13) 10/10/2024 Abnormal UGI series (ICD-10 - R93.3) 09/20/2024 Epigastric pain (ICD-10 - R10.13) Digestive diseases material was printed We discussed her symptoms today. We discussed the causes of epigastric pain, and stomach problems in general. We recommended a trial of simethicone, wryx-tjk-igfqyek, for her complaints of gas. She has a long-standing history of upper GI symptoms, treated with proton pump inhibitors. Because of her symptoms and findings on her upper GI/barium series, we have recommended further evaluation with endoscopy. She is aware of risks and benefits and agrees to proceed. This will be scheduled at her convenience. Today's visit was 45 minutes. 09/20/2024 Abnormal UGI series (ICD-10 - R93.3) We discussed he r symptoms today. We discussed the causes of epigastric pain, and stomach problems in general. We recommended a trial of simethicone, huls-znp-uyzllds, for her complaints of gas. She has a long-standing history of upper GI symptoms, treated with proton pump inhibitors. Because of her symptoms and findings on her upper GI/barium series, we have recommended further evaluation with endoscopy. She is aware of risks and benefits and agrees to proceed. This will be scheduled at her convenience. Today's visit was 45 minutes. 12/20/2024 Elevated LFTs (ICD-10 - R79.89) We [...] imaging. Followup will be in one year. 10/13/2024 Nausea and vomiting, unspecified vomiting type (ICD-10 - R11.2) 10/10/2024 Gastro-esophageal reflux disease without esophagitis (ICD-10 - K21.9) Plan Of Treatment Pending Test Test Name Order Date LIVER PROFILE 12/20/2024 LIVER PROFILE 10/13/2024 LIPASE 10/13/2024 IRON + IBC (FE) 12/20/2024 FERRITIN 12/20/2024 CBC w/o DIFF 10/13/2024 CBC w/o DIFF 12/20/2024 HEPATITIS A,B,C PROFILE 12/20/2024 MITOCHONDRIAL AB 12/20/2024 SMOOTH MUSCLE ANTIBODIES 12/20/2024 US ABD 12/20/2024 Liver Fibrosis Pnl 12/20/2024 FREDDIE Reflex Titer and Pattern 12/20/2024 Future Test Test Name Order Date UPPER GI ENDOSCOPY 09/20/2024 Next Appt Details Provider Name:Delmar busby Jr, 12/24/2025 09:00:00 AM, [address] [facility], [address], [place], [address], Insurance Providers Payer Name Payer Address Payer Phone Subscriber Number Group Number Insured Name Patient Relationship to Insured Coverage Start Date Coverage End Date [facility] [address] [place] [address] [id number] LION LANCASTER Self - patient is the insured Medical (General) History Medical History History ICD Code Asthma Hypothyroidism Anxiety/depression DCIS left breast status post lumpectomy, XRT, tamoxifen Diverticulosis/colon polyps, colonoscopy 01/17, tubular adenoma. EGD 10/24, 5 cm hiatal hernia, esophagit is on biopsy, no BE/HP Surgical History Surgery Date(Month/Year) Cholecystectomy Tubal ligation Mandibular surgery 1978
== END 2025-01-08 13:10 | disposition home or self-care (01) ==
LOC: HO.MAMMO 13:09
PROVIDERS: Visit Provider Physician Assistant
DX: Z12.31 Encounter for screening mammogram for malignant neoplasm of breast (principal)
CPT/HCPCS: 77063; 77067

== ENCOUNTER → 2025-01-08 13:15 | Outpatient (BNV) | payer MEDICARE, MEDICAID, SELFPAY | PROVIDERS: Visit Provider Internal Medicine | DX: Z12.31 Encounter for screening mammogram for malignant neoplasm of breast (principal) | CPT/HCPCS: 77063; 77067 ==

== ENCOUNTER 2025-01-12 07:33 | Outpatient (REF) | payer MEDICARE, MEDICAID, SELFPAY ==
--- NOTE | ~2025-01-12 | US_ITS ---
CLINICAL HISTORY: ELEVATED LFTS US abdomen complete. COMPARISON: US abdomen dated 02/10/23 at 09:05 EDT Technique: Real time sonographic imaging, including color-flow imaging, was performed by the truck engine assembler. Multiple customer account representative static images were saved for review. FINDINGS: The visualized aorta and inferior vena cava are normal caliber. The visualized portions of the pancreas appear normal. The liver has normal echotexture. Liver, right lobe size: 14.8 cm, normal. Cholecystectomy. Common bile duct: 3 mm, normal Right kidney: Cortical medullary differentiation is maintained. No calculus or focal parenchymal abnormality identified. No hydronephrosis. Right kidney length: 10.4 cm Left kidney: Cortical medullary differentiation is maintained. No calculus or focal parenchymal abnormality identified. No hydronephrosis. Left kidney length: 9.4 cm The spleen has normal echogenicity. Splenic length: 10.3 cm, normal. No free intraperitoneal fluid identified. IMPRESSION: 1. No cause for patient's symptoms identified. Unremarkable abdominal ultrasound. This document has been electronically signed by: Rohit Monroe MD on 01/12/2025 15:45:13
--- OUTSIDE RECORDS SUMMARY | 2025-01-12 07:35 | XMS_ITS | Encounter Summary ---
Author Organization [employer] Address [address] [facility] 7[address] [place] [address] Care Team Providers Care Manager Non Profit Name Role Phone Sosa Clement MD Primary Care Provider [phone] Reason for Visit * Reason Comments Med Refill Encounter Details Date Type Department Care Team ([facility] Contact Info) Description 06/17/2024 Refill [facility] MED [facility] PEDS [address] [place], [place] [phone] Sosa Clement MD [address] [place] [address] Social History Tobacco Use Types Packs/Day Years [...] as of this encounter Care Teams Manager Non Profit Relationship Specialty Start Date End Date Sosa Clement MD [address] [place] [address] PCP - General Family Medicine 11/01/18 documented as of this encounter
--- OUTSIDE RECORDS SUMMARY | 2025-01-12 07:35 | XMS_ITS | Clinical Summary ---
Author Organization [employer] Address [address] [facility] 7t [place] [address] Care Team Providers Care Battery Builder Name Role Phone Sosa Clement MD Primary Care Provider [phone] Allergies Active Allergy Reactions Criticality Noted Date [...] Encounters Date Type Department Care Team Description 01/11/[address] [facility] MED & PEDS [address] [place] [address] Sosa Clement MD Chronic obstructive pulmonary disease, unspecified (CMS/HCC) 01/03/[address] [facility] [address] [place] [address] Sosa Clement MD Acquired hypothyroidism from Last [...] 07/28/2018, Additional history exists Mammogram 12/15/2024 12/15/2022, 0912/2019, 10/27/2018 DTaP/Tdap/Td Vaccines (2 - Td or [...] EST Narrative 12/16/2022 11:32 AM EST ? [facility] ? [address] ?[place] [address] ? Mammography Report ? Signed ? Patient: Darshan,Iris ?MR#: [id number] ? : 1955 ?Acct:[id number] ? Age/Sex: 67 / F ?ADM Date: 02/14/23 ? Loc: HO.MAMMO ? Attending Dr: Iftikhar Marin MD ? Ordering Physician: Tomer Moore MD ?Results: 2Benig ?? n Findings ? Date of Service: 12/15/22 ?Follow Up: 1 Year From Orig ?? inal Mammogram ? Procedure(s): MM tomosynthesis screening BI ?? Accession Number(s): [id number] ? cc: Tomer Moore MD ? EXAMINATION: [...] 1129 ? DD/ 0820 ? TD/TT: ? Shuttle Spotter: HESTER ? Procedure Note Donotbrittanyter, Image - 12/16/2022 Nikolai [facility] [address] [place] [address] Mammography Report Signed Patient: Rick Sexton#: [id number] : 5Acct:[id number] Age/Sex: 67 / FADM Date: 12/15/22 Loc: HO.MAMMO Attending Dr: Iftikhar Marin MD Ordering Physician: Tomer Moore MDResults: 2Benig n Findings Date of Service: 12/15/22Follow Up: 1 Year From Orig inal Mammogram Procedure(s): MM tomosynthesis screening BI Accession Number(s): [id number] cc: Tomer Moore MD EXAMINATION: MM SCREENING [...] in OV> 12/16/22 1129 DD/ 0820 TD/TT: Shuttle Spotter: [facility] External Provider IMG BI PROCEDURES Edited Result - Final from Last 3 Months or Most Recently Relevant to Health Maintenance Insurance MEDICARE [facility] [employer] Care Teams Battery Builder Relationship Specialty Start Date End Date Sosa Clement MD [address] [place] [address] PCP - General Family Medicine 11/01/18
--- OUTSIDE RECORDS SUMMARY | 2025-01-12 07:35 | XMS_ITS ---
Author Organization [facility] Address [address] [place] [address] Care Team Providers Care Application Integration Engineer Name Role Phone Jesús Cordoba Primary Care Provider Unavailab Delmar Ramirez Jr Unavailable [phone] Allergies No Known Allergies REASON FOR VISIT Patient presents today for acid RELUX, GERD Medications Medication SIG (Take, Route, Frequency, Duration) Notes Start Date End Date Status Trelegy Ellipta 200-62.5-25 MCG/ACT Inhalation for 30 Act demi Levothyroxine Sodium 100 MCG Oral for 30 Active Montelukast Sodium 10 MG TAKE 1 TABLET BY MOUTH EVERY DAY AT BEDTIME Oral for 30 [id number],Unavaila ble Active Ibuprofen 800 MG Oral for [...] Problem Status W/U Status Risk Notes Problem 520479665 Elevated LFTs (R79.89) Active confirmed Problem 370255278 Gastroesophageal reflux disease without esophagitis (K21.9) Active confirmed Vital Signs Temperature 98.4 degrees Fahrenheit 12/20/19 25 Blood pressure systolic 001 mm Hg 12/20/19 25 Blood pressure diastolic 01 mm Hg 025 Height 5 ft 4 in in 12/20/2024 Weight 180 lbs 12/20/2024 BMI 30.89 kg/m2 12/20/2024 Encounters Encounter Location Date Provider Diagnosis [facility] [address] [place] [address] 12/20/2024 Delmar Zhang Jr Elevated LFTs R79.89 [...] US ABD 12/20/2024 Liver Fibrosis Pnl 12/20/2024 FRDEDIE Reflex Titer and Pattern 12/20/2024 Next Appt Details Follow Up: 2 Months, 1 Year, Reason: Provider Name:Delmar busby Jr, 12/24/2025 09:00:00 AM, [address], [address], [place], [address], Progress Notes * LION LANCASTER NDOB:1955 (69 yo F)Acc No.[id number]:12/20/2024 Progress Notes Patient:LION NAIR Provider:?Delmar Zhang MD :1955???Age:69 Y???Sex:Female D ate:12/20/2024 Address:[address] [place] [address], [place] [address] Pcp:Jesús Cordoba Subjective: * Chief Complaints: * [...] EVERY DAY AT BEDTIME Oral , Notes: [id number],Unavailable, Taking Trelegy Ellipta 200-62.5-25 MCG/ACT Aerosol Powder [...] Zhang MD Date:?0 12/20/2024 Generated for Eva brock/Iveth/eTransmitting on:?01/12/2025 07:35 AM EDT History and Physical Notes * Examination Category Sub-Category Detail Notes Category Not es General Examination On exami nation today, she appears well. Skin is anicteric. Lungs are clear. Heart shows regular rate and rhythm. Abdomen is soft without focal masses or tenderness. Extremities are without edema.
--- OUTSIDE RECORDS SUMMARY | 2025-01-12 07:35 | XMS_ITS | Patient Health Record ---
Author Organization [facility] Address [address] [place] [address] Care Team Providers Care Reservations Agent Name Role Phone Jesús Cordoba Primary Care Provider Unavailab Delmar Ramirez Jr Unavailable [phone] Allergies No Known Allergies Results Component Value Reference Range Notes Pathology Reviewed date:10/17/2024 03:41:31 PM Interpretation: Performing Lab:[facility], [address] [place] [phone] Notes/Report: -------- -------- Name: Lion Lancaster Age /Sex: 69/F : 1955 Unit#: [id number] Attend Dr: Delmar Zhang MD Re10/10/24 Status : [facility] Location: [facility] Disch: -------- -------- SPEC : [id number] RECD : 10/10/24 STATUS: LATOSHA ADORNO NUM: [id number] ALISHA: 10/10/[address] [facility] [address]: Delmar Zhang MD ENTERED: 10/10/24- [...] Lancaster Age /Sex: 69/F : 1955 Unit#: [id number] Attend Dr: Delmar Zhang MD Re10/10/24 Status : [facility] Location: [facility] Disch: -------- -------- SPEC : [id number] RECD : 10/10/24-1148 STATUS: LATOSHA ADORNO NUM: [id number] ALISHA: 10/10/24-[address] [facility] [address]: Delmar Zhang MD ENTERED: 10/10/24- SP TYPE: Surgical OTHR DR: Fahad Gutierrez MD ORDERED: HE Stain/3, Gross Micro L4/2, IHC, Special st. 2/2, H. pylori, AB/PAS/2 Copies To: Delmar Zhang MD [address] [place] [address] Fahad Gutierrez MD [facility] [place],[address] [place] [address] [email or web address] -------- -------- Signed (si gnature on file) Troy Donato MD 10/12/24 1007 -------- -------- END OF REPORT Complete Blood Count no Diff Reviewed date:10/17/2024 03:39:35 PM Interpretation: Performing Lab:[facility], [address] [place] [phone] Notes/Report: White Blood Count 7.6 4.8-10.8 X10*3/uL [...] Panel Reviewed date:10/17/2024 03:38:47 PM Interpretation: Performing Lab:[facility], [address] [place] [phone] Notes/Report: Bilirubin Total 0.5 0.0-1.0 mg/dL Bilirubin Direct 0.2 0.0-0.5 mg/dL Aspartate Amino Transferase 17 5-31 U/L Alanine Aminotransferase 11 0-31 U/L Total Protein 6.8 6.5-8.0 g/dL Albumin Level 3.8 3.5-5.0 g/dL Alkaline Phosphatase 164 39-117 U/L Lipase Reviewed date:10/17/2024 03:39:42 PM Interpretation: Performing Lab:[facility], [address] [place] [phone] Notes/Report: Lipase 17 8-78 U/L Reason For [...] EVERY DAY AT BEDTIME Oral for 30 [id number],Unavaila ble Active Ibuprofen 800 MG Oral for [...] Problem Status W/U Status Risk Notes Problem 03484756 Epigastric pain (R10.13) Active confirmed Problem Gastro-esophage al reflux disease without esophagitis (327648150) Gastro-esophageal reflux disease without esophagitis (K21.9) Active confirmed Problem 051667338 Elevated LFTs (R79.89) Active confirmed Problem 038312840 Gastroesophageal reflux disease without esophagitis (K21.9) Active confirmed Problem 989390333 Abnormal UGI ser ies (R93.3) Active confirmed Vital Signs Temperature 98.4 degrees Fahrenheit 12/20/2024 Blood pressure diastolic 01 mm Hg 12/20/2024 Height 5 ft 4 in in 12/20/2024 Blood pressure systolic 001 mm Hg 12/20/2024 Weight 180 lbs 12/20/2024 BMI 30.89 kg/m2 12/20/2024 Encounters Encounter Location Date Provider Diagnosis [facility] Outpatient [address] [place] [id number] 10/10/2024 Delmar Zhang Jr Epigastric pain R10.13 ; Abnormal UGI series R93.3 and Gastro-esophageal reflux disease without esophagitis K21.9 [facility] [address] [place] [facility] [place] [address] 09/20/2024 Delmar Zhang Jr Epigastric pain R10.13 and Abnormal UGI series R93.3 [facility] [address] [place], [place] [address] [address] 12/20/2024 Delmar Zhang Jr Elevated LFTs R79.89 and Gastroesophageal reflux disease without esophagitis K21.9 [facility] [address] [place], [place] [address], [place] [address] 07/18/2024 eDlmar Zhang Jr [facility] [address] [place] [address] 10/13/2024 Delmar Zhang Jr Nausea and vomiting, unspecified vomiting type R11.2 [facility] [address] [place] [address] 10/13/2024 Delmar Zhang Jr [facility] [address] [place], [place] [address], [place] [address] 10/17/2024 Delmar Zhang Jr Assessments Encounter Date [...] general. We recommended a trial of simethicone, [id number], for her complaints of gas. She has [...] general. We recommended a trial of simethicone, [id number], for her complaints of gas. She has [...] Name:Delmar busby Jr, 12/24/2025 09:00:00 AM, [address] [facility], [address], [place], [address], Insurance Providers Payer Name Payer Address Payer Phone Subscriber Number Group Number Insured Name Patient Relationship to Insured Coverage Start Date Coverage End Date [facility] [address] [place] [address] [id number] LION LANCASTER Self - patient is the insured Medical (General) History Medical History History ICD Code Asthma Hypothyroidism Anxiety/depression DCIS left breast status post lumpectomy, XRT, tamoxifen Diverticulosis/colon polyps, colonoscopy 01/17, tubular adenoma. EGD 10/24, 5 cm hiatal hernia, esophagit is on biopsy, no BE/HP Surgical History Surgery Date(Month/Year) Cholecystectomy Tubal ligation Mandibular surgery 1978
--- OUTSIDE RECORDS SUMMARY | 2025-01-12 07:35 | XMS_ITS | Encounter Summary ---
Author Organization [employer] Address [address] [facility] [address] [place] [address] Care Team Providers Care Email Marketing Specialist Name Role Phone Sosa Clement MD Primary Care Provider [phone] Reason for Visit * Reason Onset Date Comments Referral 12/17/2022 Encounter Details Date Type Department Care Team ([facility] st Contact Info) Description 12/17/2022 Telephone [facility] CHC MED & PEDS [address] [place], [place] [phone] Sosa Clement MD [address] [place] [address] Referral Social History Tobacco Use Types Packs/Day [...] is Kenyatta and their fax number is [phone]. 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
--- OUTSIDE RECORDS SUMMARY | 2025-01-12 07:35 | XMS_ITS | Encounter Summary ---
Author Organization [employer] Address [address] [facility] 7t [place] [address] Care Team Providers Care Regulatory Auditor Name Role Phone Sosa Clement MD Primary Care Provider [phone] Reason for Visit * Reason Comments Med Refill Encounter Details Date Type Department Care Team ([facility] st Contact Info) Description 01/11/2025 Refill [facility] MED & PEDS [address] [place], [place] [phone] Sosa Clement MD [address] [place] [address] Chronic obstructive pulmonary disease, unspecified (CMS/HCC) Social History Tobacco Use Types Packs/Day Years [...] as of this encounter Visit Diagnoses Diagnosis Chronic obstructive pulmonary disease, unspecified (CMS/HCC) documented in this encounter Additional Health Concerns Assessment Noted Time PHQ-9 Depression Total Score: 16 023 9:12 AM EDT documented as of this encounter Care Teams Regulatory Auditor Relationship Specialty Start Date End Date Sosa Clement MD [address] [place] [address] PCP - General Family Medicine 11/01/18 documented as of this encounter
--- OUTSIDE RECORDS SUMMARY | 2025-01-12 07:35 | XMS_ITS | Encounter Summary ---
Author Organization [employer] Address [address] [facility] 7t [place] [address] Care Team Providers Care Websphere Commerce Consultant Name Role Phone Sosa Clement MD Primary Care Provider [phone] Reason for Visit * Reason Comments Med Refill Encounter Details Date Type Department Care Team ([facility] st Contact Info) Description 01/03/2025 Refill [facility] CHC MED & PEDS [address] [place], [place] [phone] Sosa Clement MD [address] [place] [address] Acquired hypothyroidism Social History Tobacco Use Types [...] documented as of this encounter Care Teams Websphere Commerce Consultant Relationship Specialty Start Date End Date Sosa Clement MD [address] [place] [address] PCP - General Family Medicine 11/01/18 documented as of this encounter
--- OUTSIDE RECORDS SUMMARY | 2025-01-12 07:35 | XMS_ITS | Encounter Summary ---
Author Organization [employer] Address [address] [facility] 7t [place] [address] Care Team Providers Care Android Framework Developer Name Role Phone Sosa Clement MD Primary Care Provider [phone] Reason for Visit * Reason Comments Med Refill Encounter Details Date Type Department Care Team ([facility] Contact Info) Description 06/26/[address] [facility] CHC MED & PEDS [address] [place], [place] [phone] Sosa Clement MD [address] [place] [address] Social History Tobacco Use Types Packs/Day Years [...] documented as of this encounter Care Teams Android Framework Developer Relationship Specialty Start Date End Date Sosa Clement MD [address] [place] [address] PCP - General Family Medicine 11/01/18 documented as of this encounter
--- OUTSIDE RECORDS SUMMARY | 2025-01-12 07:35 | XMS_ITS | Encounter Summary ---
Author Organization [employer] Address [address] [facility] 7t [place] [address] Care Team Providers Care Geriatric Psychiatrist Name Role Phone Sosa Clement MD Primary Care Provider Encounter Details Date Type Department Care Team (Late st Contact Info) Description 04/21/2023 Abstract [facility] MEDICINE [address] [place] [address] Sosa Clement MD [address] [place] [address] Social History Tobacco Use Types Packs/Day Years [...] documented as of this encounter Care Teams Geriatric Psychiatrist Relationship Specialty Start Date End Date Sosa Clement MD [address] [place] [address] PCP - General Family Medicine 11/01/18 documented as of this encounter
--- OUTSIDE RECORDS SUMMARY | 2025-01-12 07:36 | XMS_ITS ---
Author Organization [facility] Address [address] [place] [address] Care Team Providers Care Shipper/Receiver Name Role Phone Yanira Cordobas Primary Care Provider Unavailab Delmar Ramirez Jr REASON FOR VISIT labs and pathology Encounters Encounter Location Date Provider Diagnosis [facility] [address] [facility] [address] [place] [address] 10/17/2024 Delmar Zhang Jr Plan Of Treatment Next Appt Details Provider Name:Delmar busby Jr, 12/24/2025 09:00:00 AM, [address] [place] [address], [address], [place], [address], Progress Notes * LION LANCASTER NDOB:1955 (69 yo F)Acc No.[id number]:10/17/2024 Patient:?LION LANCASTER :1955???Age:69 Y???Sex:Female Address:[address] [place] [address], [place], [address] * true * Date:? Generated for Nuviai delmy/Iveth/eTransmitting on:?01/12/2025 07:35 AM EDT
--- OUTSIDE RECORDS SUMMARY | 2025-01-12 07:36 | XMS_ITS ---
Author Name [facility] Organization Unknown Encounters Encounter Type Encounter Reason Primary Diagnosis Location Date Ambulatory [facility] 12/29/2024 Ambulatory [facility] 11/23/2024 Ambulatory [facility] 11/22/2024 Ambulatory [facility] 11/21/2024 Ambulatory [facility] 11/13/2024 Ambulatory [facility] 11/13/2024
--- OUTSIDE RECORDS SUMMARY | 2025-01-12 07:36 | XMS_ITS | Encounter Summary ---
Author Organization [employer] Address [address] [facility] 7t [place] [address] Care Team Providers Care Inventory Control Planner Name Role Phone Sosa Clement MD Primary Care Provider [phone] Reason for Visit * Reason Comments Med Refill Encounter Details Date Type Department Care Team ([facility] st Contact Info) Description 02/03/2023 Refill [facility] MED & PEDS [address] [place], [place] [phone] Iftikhar Marin MD [address] [place] [address] Severe persistent asthma with allergic rhinitis with [...] exacerbation documented in this encounter Care Teams Inventory Control Planner Relationship Specialty Start Date End Date Sosa Clement MD [address] [place] [address] PCP - General Family Medicine 11/01/18 documented as of this encounter
--- OUTSIDE RECORDS SUMMARY | 2025-01-12 07:36 | XMS_ITS ---
Author Organization [facility] Address [address] [place] [address] [place] [address] Care Team Providers Care Wheel Borer Name Role Phone Jesús Cordoba Primary Care Provider Unavailab Delmar Ramirez Jr REASON FOR VISIT epigastric pain Encounters Encounter Location Date Provider Diagnosis [facility] [address] [place] [address] 10/16/2024 Delmar Zhang Jr Plan Of Treatment Next Appt Details Provider Name:Delmar busby Jr, 12/24/2025 09:00:00 AM, [address] [place] [address], [address], [place], [address], Progress Notes * LION LANCASTER NDOB:1955 (69 yo F)Acc No.[id number]:10/16/2024 Progress Notes Patient:?LION LANCASTER Provider:?Delmar Zhang MD :1955???Age:69 Y???Sex:Female D ate:10/16/2024 Address:[address] [place], [place] [id number] Pcp:Jesús Cordoba Subjective: * Chief Complaints: * [...] MD Date:?1 12/17/2023 Generated for Eva brock/Iveth/Jaret on:?01/12/2025 07:35 AM EDT
== END 2025-01-12 07:34 | disposition home or self-care (01) ==
LOC: HO.US 07:33
PROVIDERS: PCP Physician Assistant; Visit Provider Internal Medicine Gastroenterology
DX: R79.89 Other specified abnormal findings of blood chemistry (principal)
CPT/HCPCS: 76700

== ENCOUNTER → 2025-01-12 07:35 | Outpatient (BNV) | payer MEDICARE, MEDICAID, SELFPAY | PROVIDERS: PCP Physician Assistant; Visit Provider Radiology Diagnostic Radiology | DX: R74.01 Elevation of levels of liver transaminase levels (principal) | CPT/HCPCS: 76700 ==

== ENCOUNTER 2025-02-08 08:47 | Outpatient (AMB) | payer MEDICARE, SELFPAY ==
--- NOTE | 2025-02-08 09:08 | A.OFFPC_ITS ---
Vital Signs 02/08/25 09:09 Height 5 ft 4 in Weight 181 lb BMI 31.1 BP 118/70 Blood Pressure Location Lt brachial Position Sitting Pulse 74 Pulse Source Pulse Oximeter Temp 97.3 F Temp Source Temporal Artery Scan Pulse Oximetry (%) 100 Oxygen Delivery Method Room Air Intake Visit Reasons: establish care/ ALIYA DR Drew Die Tripper Required: No Accompanied by: Self / Same As Patient Allergies amoxicillin [AMOXICILLIN] Allergy (Intermediate, Verified 02/08/25 09:30) RASH Penicillins [PENICILLINS] Allergy (Intermediate, Verified 02/08/25 09:30) RASH animal dander Allergy (Mild, Verified 02/08/25 09:30) SHORTNESS OF BREATH ciprofloxacin [From Cipro] Allergy (Mild, Verified 02/08/25 09:30) RASH vancomycin [Vancomycin] Allergy (Mild, Verified 02/08/25 09:30) SHORTNESS OF BREATH Medication List - Last Reconciled 02/08/25 by Jesús Cordoba PA-C acetaminophen ER 650 mg PO Q8H PRN albuterol sulfate 90 mcg/actuation 2 puffs inhalation Q4-6H PRN budesonide 0.5 mg (2 mL) inhalation DAILY 30 days calcium carbonate-vitamin D3 600 mg-10 mcg (400 unit) (Calcium 600 + D(3)) 1 tab PO BID cholecalciferol (vitamin D3) 50 mcg PO BID citalopram 20 mg PO DAILY docusate sodium (Colace) 200 mg PO BEDTIME PRN bzzptpnbegf-zafvkyugl-tkpuvaim 200-62.5-25 mcg (Trelegy Ellipta) 1 inh inhalation DAILY 30 days furosemide 40 mg PO DAILY hydrocortisone 2.5% (Procto-Med HC) 1 appl RI BID-QID PRN hydroxyzine HCl 25 mg PO BID ipratropium-albuterol 0.5 mg-3 mg(2.5 mg base)/3 mL 3 mL inhalation BID 30 days levothyroxine 100 mcg PO DAILY loperamide (Imodium A-D) 4 mg (2 x 2 mg) PO DAILY PRN montelukast (Singulair) 10 mg PO BEDTIME 30 days nebulizers As directed ondansetron 4 mg PO DAILY PRN 5 days oxymetazoline 0.05% (Afrin (oxymetazoline)) 2 sprays intranasal Q12H PRN 5 days pantoprazole 40 mg PO DAILY sucralfate 5 mL PO QID topiramate 25 mg PO DAILY Tobacco use date assessed: 02/08/25 Fall risk assessment: No Falls in past year Last assessed Fall Risk: 02/08/25 Dental Screening Dental Screen Date: 02/08/25 Did you have a dental visit in the last 12 months?: Yes Did you have a dental problem in the last 6 months where you did not have access to dental care?: No Was dental information given to patient?: Patient has dentist HPI establish care/ ALIYA DR Rajendra SMITH Details Patient is a 69-year-old female here today for a transfer of care visit. Previous PCP was Dr. Drew. Patient has a past medical history significant for asthma-COPD overlap syndrome, hypothyroidism, history of breast cancer, anxiety, GERD. COPD: Followed by [facility]. She reports she has been on smoker, was exposed to a lot of secondhand smoke throughout her lifetime. Has maintenance inhaler she is adherent to. Does have liquid budesonide and albuterol she uses on an as needed basis at home. .. Bilateral knee arthritis: Her arthritis has been diagnosed as chronic by an news specialist, with unsatisfactory response to various pain management strategies. She refrains from opioids like tramadol and oxycodone due to side effects and addiction concerns, and hndu-fky-vtupkxc options like ibuprofen and Tylenol provide insufficient pain relief. Missed appointments have delayed physical therapy, and she awaits rescheduling for these services. .. History of breast cancer: Followed by [facility] oncologist, continues to get regular mammograms Laboratory Tests 11/28/24 15:05 RBC 4.42 [facility] Medical History (Updated 02/08/25 @ 13:01 by Jesús Cordoba PA-C) Epigastric pain Allergies Low back pain Asthma-COPD overlap syndrome Tubular adenoma Diverticulosis of colon Tubular adenoma COPD (chronic obstructive pulmonary disease) Acute anxiety Allergic rhinitis Hypothyroid Asthma Asthma dependent on inhaled steroids Depression Anxiety Irritable bowel Acid reflux Diverticulosis large intestine w/o perforation or abscess w/o bleeding Surgical History H/O esophagogastroduodenoscopy (~12/2018) History of colonoscopy with polypectomy (~12/2018) History of mandibular surgery Hx of cholecystectomy Hx of tubal ligation Family History Maternal Aunt Pancreatic cancer Maternal Grandmother Diabetes Stroke Maternal Grandfather Diabetes Mother COPD (chronic obstructive pulmonary disease) Father Respiratory failure Social History Household Members: Spouse Household Members Other:: Lives with an 11-year-old granddaughter Housing: House Are you a primary career placement specialist to a significant other at home: No Do you presently have visiting nurse or other home services: No Alcohol intake: never Patient Tobacco Use Status: Never used Tobacco e-Cigarette/Vaping Use: Never Used Second Hand Smoke Exposure: No service: No Current occupational status: retired Current occupation: left hand dominant Cognitive needs: No Hearing needs: No Vision needs: Yes (glasses) Questionnaire PHQ-9 Over the last 2 weeks, how often have you been bothered by any of the following problems? 1. Little interest or pleasure in doing things: not at all 2. Feeling down, depressed, or hopeless: several days (currently on medication) 3. Trouble falling or staying asleep, or sleeping too much: not at all 4. Feeling tired or having little energy: not at all 5. Poor appetite or overeating: not at all 6. Feeling bad about yourself - or that you are a failure or have let yourself or your family down: not at all 7. Trouble concentrating on things, such as reading the newspaper or watching television: not at all 8. Moving or speaking so slowly that other people could have noticed. Or the opposite - being so fidgety or restless that you have been moving around a lot m ore than usual: not at all 9. Thoughts that you would be better off or of hurting yourself in some way: not at all Total score: 1 Depression Screening Interpretation: Negative Depression Screening Done: Yes 50920 - PHQ-9 Billing: Yes Source: Developed by Drs. Jacob Velasquez, Maribel Du, Pablito Rajan and colleagues, with an educational adrian from [employer]. Thrive Questionnaire Date Thrive assessed: 02/08/25 I am a: Patient What is your living situation today?: I have a steady place to live Within the past 12 months, did the food you bought not last and you didn't have the money to get more?: Never true Within the past 12 months, did you worry whether your food would run out before you got money to buy more?: Never true Do you have trouble paying for medicines?: No Do you have trouble getting transportation to medical appointments?: No Do you have trouble paying your heating and electricity bill?: No Do you have trouble taking care of your child, family member or friend?: No Do you have trouble with day-to-day activities such as bathing, preparing meals, shopping, managing finances, etc.?: No Are you currently unemployed and looking for a job?: No Are you interested in more education?: No Please select the resources that you would like help with: None Currently or been in a relationship where the following occur: No concerns reported THRIVE Score: 0 AUDIT C Alcohol Use Questionnaire (AUDIT-C) 1. How often do you have a drink containing alcohol?: Never 3. How often do you have six or more drinks on one occasion?: Never Total Score: 0 LIAM-7 AMB Questionnaire LIAM-7 Date LIAM - 7 assessed: 02/08/25 Feeling nervous, anxious, or on edge: 0 = Not at all Not being able to stop or control worryin = Not at all Worrying too much about different things: 0 = Not at all Trouble relaxin = Not at all Being so restless that it is hard to sit still: 0 = Not at all Becoming easily annoyed or irritable: 0 = Not at all Feeling afraid as if something awful might happen: 0 = Not at all Total LIAM-7 score (0-4 normal; 5-9 mild; 10-14 moderate; 15-21 severe): 0 Source: Developed by Drs. Jacob Velasquez, Maribel Du, Pablito Rajan and colleagues, with an educational adrian from [employer]. LIAM-7 Assessment Billing LIAM-7 Assessment Tool: LIAM-7 Assessment 05904 Review of Systems Const Denies headache(s) Eyes Denies loss of vision ENT Denies vertigo, Denies dizziness, Denies headache(s) and Denies sore throat Card Denies chest pain, Denies leg edema and Denies lightheadedness Resp Denies cough, Denies hemoptysis and Denies wheezing GI Denies abdominal pain, Denies melena, Denies constipation, Denies diarrhea and Denies vomiting Denies urinary frequency, Denies dysuria and Denies urinary urgency Musc Denies arthralgias, Denies joint swelling, Denies numbness and Denies tingling Neuro Denies Abnormal speech present, Denies behavioral changes, Denies vertigo, Denies dizziness, Denies headache(s), Denies loss of vision, Denies memory loss, Denies numbness and Denies tingling Psych Denies anxiety, Denies behavioral changes, Denies depression, Denies memory loss and Denies panic attacks Pb/Lymph Denies easy bleeding and Denies easy bruising Aller/Immun Denies wheezing Physical exam (Primary Care) Vital Signs: Last Vital Signs Temp 97.3 F 02/08/25 09:09 Pulse 74 02/08/25 09:09 BP 118/70 02/08/25 09:09 Pulse Ox 100 02/08/25 09:09 Oxygen Delivery Method Room Air 02/08/25 09:09 BMI result Body Mass Index 31.1 Tobacco/Smoking Status: Tobacco use Status Tobacco use date assessed 02/08/25 02/08/25 09:22 Patient Tobacco Use Status Never used Tobacco 02/08/25 09:09 e-Cigarette/Vaping Use Never Used 02/08/25 09:09 PHQ-9: PHQ-9 Score PHQ-9: Total score 1 02/08/25 09:09 Depression Screening Interpretation: Negative Thrive Assessment: Date of Thrive Assessment Date Thrive assessed 02/08/25 02/08/25 09:09 Currently or been in a relationship where the following occur: No concerns reported Const General: healthy appearing, no acute distress, alert and awake Nutritional Appearance: well nourished Orientation/consciousness: oriented to person, oriented to place and oriented to time HENMT Ears: TM's normal bilaterally General nose exam: Normal nasal mucous membranes and turbinates present Eyes Conjunctivae: conjunctivae normal Sclerae: sclerae normal Pupils: Equal, round and reactive pupils present Neck Neck: Yes no lymphadenopathy and Yes no JVD Thyroid: Thyroid normal Carotids: no bruits Resp Effort & Inspection: normal respiratory effort and not tachypneic Auscultation: no crackles, no rales, no rhonchi and no wheezes Cardio Rate: regular rate Rhythm: regular rhythm Heart sounds: no murmurs and normal S1 and S2 GI Palpation (GI): Soft to palpation, nontender, no hepatomegaly and no splenomegaly Auscultation: normal bowel sounds Skin General skin exam: no rashes or lesions noted and dry skin Neuro General: oriented to person, oriented to place and oriented to time Cranial nerves: Yes Equal, round and reactive pupils present Speech: No Abnormal speech present Gait exam (Neuro): Normal gait present Motor exam (neuro): no tremor noted Extrem Right upper extremity: full ROM Left upper extremity: full ROM Right lower extremity: full ROM; no edema Left lower extremity: full ROM; no edema Psych Mental Status: mental status grossly normal Speech and movement: Normal speech and movement present Affect: normal affect Attitude: cooperative Thought process: Normal thought process present Coding Level of Care Code Est Pt Level 4 (77284) Diagnoses Simple chronic bronchitis J41.0 COPD type: chronic bronchitis Chronic bronchitis type: simple Primary osteoarthritis of left knee M17.12 Osteoarthritis type: primary Polyarthralgia M25.50 Screening for diabetes mellitus (DM) Z13.1 Additional Codes LIAM-7 Assessment Billing - LIAM-7 Assessment Tool: LIAM-7 Assessment 96761 ([id number]) PHQ-9 - 01888 - PHQ-9 Billing: Yes ([id number]) Assessment & Plan Assessment & Plan (1) COPD (chronic obstructive pulmonary disease): Comment: Chronic , Stable , JEAN-BAPTISTE. is part of this problem . R/x Cont,. to use : Incruse ellipta, 1 inh daily Budesonide 0.5 mg TID Albuterol HFA 2 puffs Q 6 hours p.r.n.. Does not have to use Advair. Because of her recurrent need to go on prednisone, I will keep her on prednisone 5 mg a day for a few weeks, Until we get pulmonary function test done on her. Do Deep breathing exercises TID . PULMONARY FUNCTION TEST IS ORDERED Code(s): J44.9 - Chronic obstructive pulmonary disease, unspecified Category: Medical Qualifiers: COPD type: chronic bronchitis Chronic bronchitis type: simple Qualified Code(s): J41.0 - Simple chronic bronchitis Plan: Continue follow up with her gang mower operator. She reports her COPD has been fairly well controlled with current management. Has not had any recent exacerbations (2) Osteoarthritis of left knee: Code(s): M17.12 - Unilateral primary osteoarthritis, left knee Category: Medical Qualifiers: Osteoarthritis type: primary Qualified Code(s): M17.12 - Unilateral primary osteoarthritis, left knee Plan: Start meloxicam for pain management. Encourage physical therapy and consider aquatic exercises. (3) Polyarthralgia: Code(s): M25.50 - Pain in unspecified joint Category: Medical Plan: Use meloxicam and pursue physical therapy. Explore aquatic therapy options. (4) Screening for diabetes mellitus (DM): Code(s): Z13.1 - Encounter for screening for diabetes mellitus Category: Medical Plan: As per [facility] Orders: Orders Complete Blood Count no Diff Today J41.0 - Simple chronic bronchitis Comprehensive [place]. Panel Fast Today Z13.1 - Encounter for screening for diabetes mellitus Medications: New meloxicam 15 mg PO DAILY 30 days PRN 30 tabs 3RF pain (scale score 7-10) M25.50 - Pain in unspecified joint Refilled albuterol sulfate 90 mcg/actuation 2 puffs inhalation Q4-6H PRN 6.7 grams 11RF shortness of breath or wheezing budesonide 0.5 mg (2 mL) inhalation DAILY 30 days 60 mL 5RF J44.9 - Chronic obstructive pulmonary disease, unspecified furosemide 40 mg PO DAILY 30 tabs 0RF R03.0 - Elevated blood-pressure reading, without diagnosis of hypertension, R60.0 - Localized edema hydrocortisone 2.5% (Procto-Med HC) 1 appl RI BID-QID PRN 30 grams 3RF hemorrhoids ipratropium-albuterol 0.5 mg-3 mg(2.5 mg base)/3 mL 3 mL inhalation BID 30 days 180 mL 8RF severe copd/asthma J44.9 - Chronic obstructive pulmonary disease, unspecified
[2025-02-08 09:09] VITALS: BP 118/70; PULSE 74; TEMP 36.3; O2SAT 100; BMI 31.1
--- OUTSIDE RECORDS SUMMARY | 2025-02-08 09:12 | XMS_ITS | Encounter Summary ---
Author Organization [employer] Address [address] [facility] 7t [place] [address] Care Team Providers Care Doll Wig Maker Name Role Phone Sosa Clement MD Primary Care Provider [phone] Reason for Visit * Reason Comments Med Refill Encounter Details Date Type Department Care Team ([facility] Contact Info) Description 06/26/2024 Refill [facility] MED & PEDS [address] [place], [place] [phone] Sosa Clement MD [address] [place] [address] Social History Tobacco Use Types Packs/Day Years [...] documented as of this encounter Care Teams Doll Wig Maker Relationship Specialty Start Date End Date Sosa Clement MD [address] [place] [address] PCP - General Family Medicine 11/01/18 documented as of this encounter
--- OUTSIDE RECORDS SUMMARY | 2025-02-08 09:12 | XMS_ITS | Encounter Summary ---
Author Organization [employer] Address [address] [facility] 7t [place] [address] Care Team Providers Care Ceramic Tile Installer Name Role Phone Sosa Clement MD Primary Care Provider [phone] Reason for Visit * Reason Comments Med Refill Encounter Details Date Type Department Care Team ([facility] st Contact Info) Description 01/11/2025 Refill [facility] MED & PEDS [address] [place], [place] [phone] Sosa Clement MD [address] [place] [address] Chronic obstructive pulmonary disease, unspecified (CMS/HCC) Social [...] documented as of this encounter Care Teams Ceramic Tile Installer Relationship Specialty Start Date End Date Sosa Clement MD [address] [place] [address] PCP - General Family Medicine 11/01/18 documented as of this encounter
--- OUTSIDE RECORDS SUMMARY | 2025-02-08 09:12 | XMS_ITS | Encounter Summary ---
Author Organization [employer] Address [address] [facility] [address] [place] [address] Care Team Providers Care Manager Chemistry Name Role Phone Sosa Clement MD Primary Care Provider [phone] Reason for Visit * Reason Onset Date Comments Referral 12/17/2022 Encounter Details Date Type Department Care Team ([facility] st Contact Info) Description 12/17/2022 Telephone [facility] CHC MED & PEDS [address] [place], [place] [phone] Sosa Clement MD [address] [place] [address] Referral Social History Tobacco Use Types Packs/Day [...] is Kenyatta and their fax number is [phone]. If any questions please contact pt at [phone] [place] Speaker documented in this encounter Plan of Treatment Not on file documented as of this encounter Visit Diagnoses Not on filedocumented in this encounter Care Teams Manager Chemistry Relationship Specialty Start Date End Date Sosa Clement MD [address] [place] [address] PCP - General Family Medicine 11/01/18 documented as of this encounter
--- OUTSIDE RECORDS SUMMARY | 2025-02-08 09:12 | XMS_ITS | Encounter Summary ---
Author Organization [employer] Address [address] [facility] 7t [place] [address] Care Team Providers Care Senior Site Manager Name Role Phone Sosa Clement MD Primary Care Provider [phone] Reason for Visit * Reason Comments Med Refill Encounter Details Date Type Department Care Team ([facility] Contact Info) Description 06/17/2024 Refill [facility] CHC MED & PEDS [address] [place], [place] [phone] Sosa Clement MD [address] [place] [address] Social History Tobacco Use Types Packs/Day Years [...] documented as of this encounter Care Teams Senior Site Manager Relationship Specialty Start Date End Date Sosa Clement MD [address] [place] [address] PCP - General Family Medicine 11/01/18 documented as of this encounter
--- OUTSIDE RECORDS SUMMARY | 2025-02-08 09:12 | XMS_ITS | Clinical Summary ---
Author Organization [employer] Address [address] [facility] 7t [place] [address] Care Team Providers Care Rose Grading Supervisor Name Role Phone Sosa Clement MD Primary Care Provider [phone] Allergies Active Allergy Reactions Criticality Noted Date [...] EVERY DAY BEFORE BREAKFAST 30 tablet 1 5 Active Active Problems Problem Noted Date Diagnosed [...] Type Department Care Team Description 01/11/2025 Refill [facility] MED & PEDS [address] [place] [address] Sosa Clement MD Chronic obstructive pulmonary disease, unspecified (CMS/HCC) 01/03/2025 Refill [facility] CHC MED & PEDS [address] [place] [address] Sosa Clement MD Acquired hypothyroidism from Last [...] 60-74 years 1-dose series) 2015 Depression Monitoring 10/07/2023 04/07/2023, 023 Tobacco Screening 03/10/2024 03/10/2023 Depression Screening 04/07/2024 [...] Narrative 12/16/2022 11:32 AM EST ? [facility] ? [address] ?[place] [address] ? Mammography Report ? Signed ? Patient: Darshan,Iris ?MR#: [id number] ? : 1955 ?Acct:[id number] ? Age/Sex: 67 / F ?ADM Date: 02/14/23 ? Loc: HO.MAMMO ? Attending : Iftikhar Marin MD ? Ordering Physician: Tomer Moore MD ?Results: 2Benig ?? n Findings ? Date of Service: 12/15/22 ?Follow Up: 1 Year From Orig ?? inal Mammogram ? Procedure(s): MM tomosynthesis screening BI ?? Accession Number(s): [id number] ? cc: Tomer Moore MD ? EXAMINATION: ?? MM SCREENING DIGITAL BREAST TOMOSYNTHESIS, BILATERAL ? CLINICAL INFORMATION: ? Due for yearly. Prior history left breast DCIS, status post lumpectomy ?? 2005. ? COMPARISON: ?? Mammography: 08/28/2021, and 07/02/2020, [...] 1129 ? DD/ 0820 ? TD/TT: ? Home Lending Officer: HESTER ? Procedure Note Donotuseinterpreter, Image - 12/16/2022 [place] [facility] [address] [place] [address] Mammography Report Signed Patient: Rick Sexton#: [id number] : 5Acct:[id number] Age/Sex: 67 / FADM Date: 12/15/22 Loc: HO.MAMMO Attending Dr: Iftikhar Marin MD Ordering Physician: Tomer Moore MDResults: 2Benig n Findings Date of Service: 12/15/22Follow Up: 1 Year From Orig inal Mammogram Procedure(s): MM tomosynthesis screening BI Accession Number(s): [id number] cc: Tomer Moore MD EXAMINATION: MM SCREENING [...] in OV> 12/16/22 1129 DD/ 0820 TD/TT: Home Lending Officer: HESTER [facility] External Provider IMG BI PROCEDURES Edited Result - Final from Last 3 Months or Most Recently Relevant to Health Maintenance Insurance MEDICARE Member Subscriber Plan / Payer ( fective 2022-Present) Name:Nicol Sexton Member ID:[id number] Relation to Subscriber:Self Name:Nicol Sexton Subscriber ID:[id number] Payer ID:[id number] Group ID:Not on file Type:Medicare Address: [place] [employer] [facility] [address] [address] [facility] Care Teams Rose Grading Supervisor Relationship Specialty Start Date End Date Sosa Clement MD [address] [place] [id number] PCP - General Family Medicine 11/01/18
--- OUTSIDE RECORDS SUMMARY | 2025-02-08 09:12 | XMS_ITS | Encounter Summary ---
Author Organization [employer] Address [address] [facility] 7t [place] [address] Care Team Providers Care Science Instructor Name Role Phone Sosa Clement MD Primary Care Provider [phone] Reason for Visit * Reason Comments Med Refill Encounter Details Date Type Department Care Team ([facility] st Contact Info) Description 02/03/2023 Refill [facility] CHC MED & PEDS [address] [place], [place] [phone] Iftikhar Marin MD [address] [place] [address] Severe persistent asthma with allergic rhinitis with [...] exacerbation documented in this encounter Care Teams Science Instructor Relationship Specialty Start Date End Date Sosa Clement MD [address] [place] [address] PCP - General Family Medicine 11/01/18 documented as of this encounter
--- OUTSIDE RECORDS SUMMARY | 2025-02-08 09:12 | XMS_ITS | Encounter Summary ---
Author Organization [employer] Address [address] [facility] 7t [place] [address] Care Team Providers Care Die Developer Name Role Phone Sosa Clement MD Primary Care Provider [phone] Encounter Details Date Type Department Care Team (Late st Contact Info) Description 04/21/2023 Abstract [facility] MEDICINE [address] [place] [address] Sosa Clement MD [address] [place] [address] Social History Tobacco Use Types Packs/Day Years [...] documented as of this encounter Care Teams Die Developer Relationship Specialty Start Date End Date Sosa Clement MD [address] [place] [address] PCP - General Family Medicine 11/01/18 documented as of this encounter
== END 2025-02-08 09:54 | disposition home or self-care (01) ==
LOC: HO.HMCH 08:48
PROVIDERS: PCP Internal Medicine; Visit Provider Physician Assistant
DX: J41.0 Simple chronic bronchitis (principal); M17.12 Unilateral primary osteoarthritis, left knee; M25.50 Pain in unspecified joint; Z13.1 Encounter for screening for diabetes mellitus

== ENCOUNTER → 2025-02-08 08:47 | Outpatient (BNVA) | payer MEDICARE, SELFPAY | PROVIDERS: PCP Internal Medicine; Visit Provider Physician Assistant | DX: J41.0 Simple chronic bronchitis (principal); E03.9 Hypothyroidism, unspecified; F41.9 Anxiety disorder, unspecified; K21.9 Gastro-esophageal reflux disease without esophagitis; M17.12 Unilateral primary osteoarthritis, left knee; M25.50 Pain in unspecified joint | CPT/HCPCS: 96127; 99212 ==

== ENCOUNTER 2025-04-05 14:59 | Outpatient (AMB) | payer MEDICARE, MEDICAID, SELFPAY ==
[2025-04-05 15:00] VITALS: BP 100/64; PULSE 79; O2SAT 97; BMI 31.6
--- NOTE | 2025-04-05 15:00 | A.OFFVIS_ITS ---
Vital Signs 04/05/25 15:00 Height 5 ft 4 in Weight 184 lb 1.376 oz BMI 31.6 BP 100/64 Blood Pressure Location Lt brachial Position Sitting Pulse 79 Pulse Source Pulse Oximeter Pulse Oximetry (%) 97 Oxygen Delivery Method Room Air Intake Visit Reasons: Asthma Allergies amoxicillin [AMOXICILLIN] Allergy (Intermediate, Verified 04/05/25 15:03) RASH Penicillins [PENICILLINS] Allergy (Intermediate, Verified 04/05/25 15:03) RASH animal dander Allergy (Mild, Verified 04/05/25 15:03) SHORTNESS OF BREATH ciprofloxacin [From Cipro] Allergy (Mild, Verified 04/05/25 15:03) RASH vancomycin [Vancomycin] Allergy (Mild, Verified 04/05/25 15:03) SHORTNESS OF BREATH HPI Comments Details: The patient is a 70 year woman with a known history of asthma. Apparently the patient has had lifelong asthma. The last time that she did undergo pulmonary function studies was back in 2021 and he actually had more of a fixed obstructi ve defect consistent more severe COPD. Therefore she likely has developed asthma COPD overlap syndrome in view of her significant disease. The patient has been on multiple respiratory inhalers with only partial improvement of his symptoms. She is getting dyspnea even with minimal activity. Moderate severity. Does not feel like she is responding well to her current respiratory therapy and would like to further optimize her respiratory regimen. At this point is very reasonable to do so. We did talk about biologic therapies but I explained to her that is mainly for allergic asthma. We did review her blood work that she has had in the past and no significant evidence of any eosinophilia or elevations in the IgE. Will go ahead and repeat those specially to see if she is a candidate now. 08/18/2024 the patient is here for a pulmonary follow-up visit. The patient overall has been doing a lot better. The Trelegy inhaler has been affecting beneficial. She really was doing very well until 2 days ago when she started developing again chest tightness and wheezing. She had to use her nebulizer her yesterday. The patient denies any chest congestion fevers or sick contacts. She did have blood work done in her IgE level was reasonable within normal limits and also her eosinophil level was just at the higher limit of normal of 300. the patient still may be a candidate for biologics if she continues to have worsening symptoms. But overall she has been doing well just prior to this last few days. So therefore will continue with the current therapy. She does complain for dyspnea on exertion. We will request PFTs and start Pulmonary rehab at this time. 04/05/2025 the patient is here for pulmonary follow-up visit. Overall the patient has been doing well. She just got back from [place]. She started developing a rash though she is not sure what the rationale about. But is very preuritic in nature. It is uncomfortable. She has been using [id number] medications without any significant improvement. Did not affect her breathing without any wheezing or rhonchi. She has continue the Trelegy with good effect. Seems to be very effective for her. She does have a rescue inhaler in case she needs a P she has not required it at all. Therefore, will continue to monitor. Will go ahead and request blood work at this time. The patient's last chest x-ray was otherwise clear. No additional follows required at this time. Will reassess when she follows up sometime in the fall of 2024. She has not issues prior to that she will call for an earlier assessment. [facility], [facility] Medical History (Updated 02/08/25 @ 13:01 by Jesús Cordoba PA-C) Epigastric pain Allergies Low back pain Asthma-COPD overlap syndrome Tubular adenoma Diverticulosis of colon Tubular adenoma COPD (chronic obstructive pulmonary disease) Acute anxiety Allergic rhinitis Hypothyroid Asthma Asthma dependent on inhaled steroids Depression Anxiety Irritable bowel Acid reflux Diverticulosis large intestine w/o perforation or abscess w/o bleeding Surgical History H/O esophagogastroduodenoscopy (~12/2018) History of colonoscopy with polypectomy (~12/2018) History of mandibular surgery Hx of cholecystectomy Hx of tubal ligation Family History Maternal Aunt Pancreatic cancer Maternal Grandmother Diabetes Stroke Maternal Grandfather Diabetes Mother COPD (chronic obstructive pulmonary disease) Father Respiratory failure Social History Household Members: Spouse Household Members Other:: Lives with an 11-year-old granddaughter Housing: House Are you a primary child care associate to a significant other at home: No Do you presently have visiting nurse or other home services: No Alcohol intake: never Patient Tobacco Use Status: Never used Tobacco e-Cigarette/Vaping Use: Never Used Second Hand Smoke Exposure: No service: No Current occupational status: retired Current occupation: left hand dominant Cognitive needs: No Hearing needs: No Vision needs: Yes (glasses) Review of Systems Const Reports fatigue and Denies fever(s) Eyes Reports no additional complaints ENT Reports nasal congestion (Mild intermittent), Reports nasal discharge and Reports nasal obstruction Card Denies chest pain, Denies irregular heart rhythm, Denies leg edema and Reports dyspnea on exertion Resp Reports as per HPI, Reports cough, Reports dyspnea on exertion and Reports wheezing GI Reports abdominal pain and Reports heartburn (Controlled with med) Reports no additional complaints Skin/Breast Reports system reviewed and no additional complaints, except as documented Neuro Reports no additional complaints Psych Reports anxiety and Reports depression Endo Reports fatigue Aller/Immun Reports wheezing Physical Exam Vital Signs: Last Vital Signs Pulse 79 04/05/25 15:00 BP 100/64 04/05/25 15:00 Pulse Ox 97 04/05/25 15:00 Oxygen Delivery Method Room Air 04/05/25 15:00 BMI result Body Mass Index 31.6 Const General: comfortable HEENT General nose exam: Abnormal mucous membranes and turbinates present erythematous Throat: Yes posterior oropharynx abnormal Neck Neck: Yes supple Chest Chest palpation & inspection: normal inspection of the chest Resp Effort & Inspection: normal respiratory effort and No prolonged expiratory phase Auscultation: no wheezes and diminished lung sounds Cardio Heart sounds: S1 normal heart sound present and S2 normal heart sound present GI Palpation (GI): Soft to palpation Skin Rashes: rashes noted (eczema) Assessment & Plan Assessment & Plan (1) Asthma: Code(s): J45.909 - Unspecified asthma, uncomplicated Category: Medical Qualifiers: Asthma complication type: uncomplicated Asthma persistence: persistent Asthma severity: severe Qualified Code(s): J45.50 - Severe persistent asthma, uncomplicated (2) Allergies: Code(s): T78.40XA - Allergy, unspecified, initial encounter Category: Medical Qualifiers: Encounter type: initial encounter Qualified Code(s): T78.40XA - Allergy, unspecified, initial encounter (3) Asthma-COPD overlap syndrome: Comment: Code(s): J44.9 - Chronic obstructive pulmonary disease, unspecified Category: Medical (4) Allergic rhinitis: Code(s): J30.9 - Allergic rhinitis, unspecified Category: Medical Qualifiers: Allergic rhinitis trigger: unspecified Allergic rhinitis seasonality: unspecified Qualified Code(s): J30.9 - Allergic rhinitis, unspecified (5) Esophageal hiatal hernia: Code(s): K44.9 - Diaphragmatic hernia without obstruction or gangrene Category: Medical Plan continue Trelegy 200 Nebulizer therapy: Duoneb BID short-acting beta agonist as needed continue Singulair start Zyrtec start Pepcid continue nasal therapies reflux diet labs/allergy testing follow-up in 6-8 months Orders: Orders Immunoglobulin E 30 Days J45.50 - Severe persistent asthma, uncomplicated, T78.40XA - Allergy, unspecified, initial encounter Complete Blood Count Auto Diff 30 Days J45.50 - Severe persistent asthma, uncomplicated, T78.40XA - Allergy, unspecified, initial encounter Basic Metabolic Panel 30 Days J45.50 - Severe persistent asthma, uncomplicated, T78.40XA - Allergy, unspecified, initial encounter Erythrocyte Sedimentation Rate 30 Days J45.50 - Severe persistent asthma, uncomplicated, T78.40XA - Allergy, unspecified, initial encounter Resp Allergy Profile Region I 30 Days J45.50 - Severe persistent asthma, uncomplicated, R91.1 - Solitary pulmonary nodule, T78.40XA - Allergy, unspecified, initial encounter Medications: New cetirizine (Zyrtec) 10 mg PO DAILY 30 tabs 0RF 30 days famotidine (Pepcid) 40 mg PO BEDTIME 30 tabs 10RF 30 days Coding Level of Care Code Est Pt Level 4 (98520) Complex EM visit Add On G2211 Diagnoses Severe persistent asthma without complication J45.50 Asthma complication type: uncomplicated Asthma persistence: persistent Asthma severity: severe Allergy, initial encounter T78.40XA Encounter type: initial encounter Asthma-COPD overlap syndrome J44.9 Allergic rhinitis, unspecified seasonality, unspecified trigger J30.9 Allergic rhinitis trigger: unspecified Allergic rhinitis seasonality: unspecified Esophageal hiatal hernia K44.9 Time Spent (min) 17
--- OUTSIDE RECORDS SUMMARY | 2025-04-05 17:41 | XMS_ITS | Encounter Summary ---
Author Organization [employer] Address [address] [place] [address] Care Team Providers Care Manager Drug Name Role Phone Sosa Clement MD Primary Care Provider [phone] Encounter Details Date Type Department Care Team (Late st Contact Info) Description 04/21/[address] [facility] MEDICINE [address] [place] [address] Sosa Clement MD [address] [place] [address] Social History Tobacco Use Types Packs/Day Years [...] as of this encounter Care Teams Manager Drug Relationship Specialty Start Date End Date Sosa Clement MD [address] [place] [id number] PCP - General Family Medicine 11/01/18 documented as of this encounter
== END 2025-04-05 15:24 | disposition home or self-care (01) ==
LOC: HO.HPS 14:59
PROVIDERS: PCP Physician Assistant; Visit Provider Hospitalist
DX: J45.50 Severe persistent asthma, uncomplicated (principal); T78.40XA Allergy, unspecified, initial encounter; J44.9 Chronic obstructive pulmonary disease, unspecified; J30.9 Allergic rhinitis, unspecified; K44.9 Diaphragmatic hernia without obstruction or gangrene
CPT/HCPCS: 99214; G2211

== ENCOUNTER → 2025-04-05 14:59 | Outpatient (BNVA) | payer MEDICARE, MEDICAID, SELFPAY | PROVIDERS: PCP Physician Assistant; Visit Provider Hospitalist | DX: J45.50 Severe persistent asthma, uncomplicated (principal); T78.40XA Allergy, unspecified, initial encounter; J44.9 Chronic obstructive pulmonary disease, unspecified; J30.9 Allergic rhinitis, unspecified; K44.9 Diaphragmatic hernia without obstruction or gangrene | CPT/HCPCS: 99212 ==

== ENCOUNTER 2025-04-06 09:18 | Outpatient (REF) | payer MEDICARE, MEDICAID, SELFPAY ==
[2025-04-06 09:35] LABS: MANUAL DIFF FLAG NO
--- OUTSIDE RECORDS SUMMARY | 2025-04-06 09:53 | XMS_ITS | Encounter Summary ---
Author Organization [facility] Address [address] [place] [address] Care Team Providers Care Cto Name Role Phone Sosa Clement Primary Care Provider Unavailab le Encounter Details Date Type Department Care Team Description 09/15/2017 Release of Information Medical Records [address] [place] [id number] Abstract, Provider Social History Tobacco Use Types Packs/Day Years Used Date Smoking Tobacco: Never Smokeless Tobacco: Never Sex Assigned at Date Recorded Not on file documented as of this encounter Plan of Treatment Not on file documented as of this encounter Visit Diagnoses Not on filedocumented in this encounter Care Teams Cto Relationship Specialty Start Date End Date Sosa Clement PCP - General Family Practice 07/26/14 documented as of this encounter
[2025-04-06 10:10] LABS: Basophils Absolute Auto 0.1 X10*3/uL (0.0-0.2); Eosinophils Absolute Auto 0.2 X10*3/uL (0.0-0.4); Eosinophils Percent Auto 3.2 % (0-4); Hematocrit 37.4 % (37.0-47.0); Imm Gran Abs Auto 0.02 X10*3/uL (0.00-0.03); Imm Gran Pct Auto 0.3 % (0.0-0.4); Lymphocytes Percent Auto 27.9 % (20-40); Mean Corpuscular HGB Conc 32.1 g/dl (31.0-35.0); Mean Corpuscular Volume 87.4 fL (80.0-98.0); Mean Platelet Volume 11.3 fL (9.4-12.3); Monocytes Absolute Auto 0.5 X10*3/uL (0.1-1.2); Monocytes Percent Auto 7.1 % (2-11); Neutrophils Absolute Auto 4.4 x10*3/uL (2.0-8.3); Neutrophils Percent Auto 60.5 % (45-73); Platelet Count 213 X10*3/uL (160-400); Red Blood Count 4.28 X10*6/uL (4.20-5.50); Red Cell Distribution Width 13.8 % (11.0-16.0); White Blood Count 7.2 X10*3/uL (4.8-10.8)
[2025-04-06 10:30] LABS: Anion Gap 11 (12-20); Blood Urea Nitrogen 18 mg/dL (9-16); Calcium 9.4 mg/dL (8.4-10.2); Carbon Dioxide 28 mmol/L (22-29); Chloride 110 mmol/L (96-108); Estimated Glomerular Filt Rate 51; Glucose Random 92 mg/dL (60-115); Potassium 4.7 mmol/L (3.3-5.1); Sodium 144 mmol/L (135-145)
[2025-04-06 10:56] LABS: Erythrocyte Sedimentation Rate 16 MM/HR (0-20)
[2025-04-10 02:23] LABS: Class Alternaria alternata 0; Class Aspergillus fumigatus 0; Class Cat Dander 1; Class Cladosporium herbarum 0; Class Cockroach 0; Class Cottonwood 0; Class Dermatophagoides farinae 0; Class Dog Dander 3; Class Mountain Cedar 0; Class Mouse Urine Protein 0; Class Oak 0; Class Sycamore 0; Class Timothy Grass 0; Class Walnut Tree 0; Class White Ash 0; D002 - IgE D farinae <0.10 kU/L; E001 - IgE Cat Dander 0.47 kU/L; E005 - IgE Dog Dander 4.48 kU/L; E072-IgE Mouse Urine <0.10 kU/L; G006 - IgE Timothy Grass <0.10 kU/L; I006-IgE Cockroach, German <0.10 kU/L; Immunoglobulin E 81 kU/L (<OR=114); M002 - IgE Cladosporium herbar <0.10 kU/L; M003 - IgE Aspergillus fumigat <0.10 kU/L; M006 - IgE Alternaria alternat <0.10 kU/L; T006 - IgE Cedar, Mountain <0.10 kU/L; T007 - IgE Oak, White <0.10 kU/L; T010 - IgE Walnut <0.10 kU/L; T011 - IgE Maple Leaf Sycamore <0.10 kU/L; T014 - IgE Cottonwood <0.10 kU/L; T015 - IgE Ash, White <0.10 kU/L
[2025-04-10 02:24] LABS: Class Bermuda Grass 0; Class Birch 0; Class Common Ragweed 0/1; Class Derm. pterony 0; Class Elm 0; Class Maple Box Elder 0; Class Mugwort 0; Class Penicillium crysogenum 0; Class Rough Pigweed 0; Class Sheep Sorrel 0; Class White Mulberry 0; D001 IgE D pteronyssinus <0.10 kU/L; G002 IgE Bermuda Grass <0.10 kU/L; M001 IgE Penicillium chrysogen <0.10 kU/L; T001 IgE Maple/Box Elder <0.10 kU/L; T003 IgE Common Silver Birch <0.10 kU/L; T008 IgE Elm, American <0.10 kU/L; T070 - IgE White Mulberry <0.10 kU/L; W001 - IgE Ragweed, Short 0.14 kU/L; W006 - IgE Mugwort <0.10 kU/L; W014 IgE Pigweed, Common <0.10 kU/L; W018 IgE Sheep Sorrel <0.10 kU/L
== END 2025-04-06 09:19 | disposition home or self-care (01) ==
LOC: HO.LAB 09:18
PROVIDERS: PCP Physician Assistant; Visit Provider Hospitalist
DX: J45.50 Severe persistent asthma, uncomplicated (principal); T78.40XA Allergy, unspecified, initial encounter; R91.1 Solitary pulmonary nodule
CPT/HCPCS: 36415; 80048; 82785; 85025; 85652; 86003

== ENCOUNTER 2025-04-20 12:16 | Emergency (ER) | payer MEDICARE, MEDICAID, SELFPAY ==
--- NOTE | 2025-04-20 | ECG_ITS ---
Test Reason : NVD Blood Pressure : */* mmHG Vent. Rate : 86 BPM Atrial Rate : 86 BPM P-R Int : 178 ms QRS Dur : 72 ms QT Int : 362 ms P-R-T Axes : 28 1 69 degrees QTcB Int : 433 ms Normal sinus rhythm Cannot rule out Anterior infarct , age undetermined Abnormal ECG When compared with ECG of 30-Sep-2023 16:09, No significant change was found Referred By: Generic ED Physician Electronically Signed By: Frank Lion
--- NOTE | ~2025-04-20 | CT_ITS ---
EXAMINATION: CT ABDOMEN AND PELVIS WITHOUT CONTRAST CLINICAL INFORMATION: Nausea and vomiting, history of diverticulitis. COMPARISON: 05/19/2024. TECHNIQUE: Multidetector volumetric imaging was performed from the superior aspect of the liver through the pubic symphysis. Sagittal and coronal reformatted images were obtained on the technologist's workstation. This CT examination was performed using dose optimization techniques as appropriate, variously including the following: *Automated exposure control *Adjustment of mA and/or kV according to patient size (this includes techniques or standardized protocols for targeted exams where dose is matched to indication/reason for exam; i.e. extremities or head) *Use of iterative reconstruction technique FINDINGS: LUNG BASES: Imaged lung bases are clear bilaterally. Heart size is normal. There is a moderate sized paraesophageal hiatus hernia are no effusions. LIVER, GALLBLADDER, AND BILIARY TREE: The unenhanced liver is normal in size, shape, and attenuation. No focal hepatic lesion or biliary ductal dilatation is present. There has been a cholecystectomy. PANCREAS: Unremarkable. SPLEEN: Unremarkable. ADRENAL GLANDS: Unremarkable. KIDNEYS AND URETERS: The kidneys are normal in size, shape, and attenuation. No hydronephrosis, hydroureter, or calculi seen. No perinephric stranding. BLADDER: Unremarkable. GASTROINTESTINAL TRACT: There is extensive sigmoid diverticulosis. There is no evidence of acute diverticulitis. No wall thickening or inflammation. Normal appendix. Moderate sized paraesophageal hiatus hernia. Stomach, and duodenum normal otherwise. Small bowel is normal in caliber and course, without evidence of wall thickening or inflammation. ABDOMINAL WALL: No significant hernia is appreciated. LYMPH NODES: No abnormal lymphadenopathy present. VASCULAR: Mild atheromatous calcification of the aorta and iliac arteries, without evidence of aneurysm. PELVIC VISCERA: The uterus and adnexa are unremarkable. OSSEOUS STRUCTURES: No suspicious lytic or blastic bone lesion evident. There are spinal degenerative changes, most notable at L4-5. CT/CT abdomen pelvis wo IV con IMPRESSION: 1. No acute findings in the abdomen or pelvis. 2. Extensive sigmoid colonic diverticulosis. No evidence of acute diverticulitis. 3. Moderate sized paraesophageal hiatus hernia. 4. Cholecystectomy. Electronically signed by: Emigdio Alonso MD 04/20/2025 04:04 PM EDT
[2025-04-20 12:33] VITALS: BP 117/78; PULSE 104; RESP 18; TEMP 36.8; O2SAT 95; BMI 31.1
--- NOTE | 2025-04-20 12:33 | ED.NAVMDI ---
HPI - Nausea/Vomiting/Diarrhea General Chief complaint: Abdominal Pain Stated complaint: Vomiting, Dizzy, Time Seen by Provider: 04/20/25 13:44 Source: patient Mode of arrival: ambulatory Limitations: no limitations History of Present Illness ED Provider: Araceli Ramirez NP HPI Narrative: Patient is a 70-year-old female who presents emergency department for evaluation. She reports since 00:00 this morning she has been having nausea, least 10 episodes of bilious nonbloody emesis, lower abdominal pain, 2 BMs today that were soft but denies to be diarrhea. Has associated generalized fatigue/weakness, dizziness and states that she has not eaten anything since yesterday. She denies any known sick contacts. Admits to having chills but denies any known fever, has not checked the temperature. She denies recent ill like symptoms. Denies chest pain or shortness of breath. Denies dysuria, hematuria, urinary frequency/urgency/hesitancy, abnormal vaginal discharge or bleeding. Related Data Home Medications ?Medication ?Instructions ?Recorded ?Confirmed cholecalciferol (vitamin D3) 50 50 mcg PO BID 07/30/20 02/08/25 mcg (2,000 unit) capsule acetaminophen 650 mg 650 mg PO Q8H PRN pain 10/07/20 02/08/25 tablet,extended release citalopram 20 mg tablet 20 mg PO DAILY 01/03/24 02/08/25 docusate sodium 100 mg capsule 200 mg PO BEDTIME PRN Constipation 01/03/24 02/08/25 (Colace) hydroxyzine HCl 25 mg tablet 25 mg PO BID 01/03/24 02/08/25 nebulizers 01/03/24 02/08/25 topiramate 25 mg tablet 25 mg PO DAILY 10/06/24 02/08/25 Previous Rx's ?Medication ?Instructions ?Recorded loperamide 2 mg tablet (Imodium 4 mg (2 x 2 mg) PO DAILY PRN loose 05/19/24 A-D) stool #10 tabs ondansetron 4 mg disintegrating 4 mg PO DAILY PRN nausea and 05/19/24 tablet vomiting 5 days #10 tabs sucralfate 100 mg/mL oral 5 ml PO QID #200 mL 06/02/24 suspension oxymetazoline 0.05 % nasal spray 2 spray intranasal Q12H PRN nasal 06/27/24 (Afrin (oxymetazoline)) congestion 5 days #22 mL calcium 600 mg (as 1 tab PO BID #60 tabs 11/28/24 carbonate)-vitamin D3 10 mcg (400 unit) tablet (Calcium 600 + D(3)) budesonide 0.5 mg/2 mL suspension 0.5 mg (2 mL) inhalation DAILY 30 02/08/25 for nebulization days #60 mL furosemide 40 mg tablet 40 mg PO DAILY #30 tabs 02/08/25 hydrocortisone 2.5 % topical cream 1 appl CA BID-QID PRN hemorrhoids 02/08/25 with perineal applicator #30 grams (Procto-Med HC) ipratropium 0.5 mg-albuterol 3 mg 3 ml inhalation BID severe 02/08/25 (2.5 mg base)/3 mL nebulization copd/asthma 30 days #180 mL soln meloxicam 15 mg tablet 15 mg PO DAILY PRN pain (scale 02/08/25 score 7-10) 30 days #30 tabs albuterol sulfate 90 mcg/actuation 2 puff inhalation Q4-6H PRN 03/14/25 aerosol inhaler shortness of breath or wheezing #6.7 grams fluticasone fur. 200 mcg-umeclid 1 inh inhalation DAILY 30 days #60 03/14/25 62.5 mcg-vilant 25 mcg ea inhalat.powder (Trelegy Ellipta) levothyroxine 100 mcg tablet 100 mcg PO DAILY #90 tabs 03/14/25 montelukast 10 mg tablet 10 mg PO BEDTIME 30 days #30 tabs 03/14/25 (Singulair) pantoprazole 40 mg tablet,delayed 40 mg PO DAILY #30 tabs 03/14/25 release cetirizine 10 mg tablet (Zyrtec) 10 mg PO DAILY 30 days #30 tabs 04/05/25 famotidine 40 mg tablet (Pepcid) 40 mg PO BEDTIME 30 days #30 tabs 04/05/25 ondansetron 4 mg disintegrating 4 mg PO Q8H PRN nausea and 04/20/25 tablet vomiting #10 tabs Allergies Allergy/AdvReac Type Severity Reaction Status Date / Time amoxicillin (AMOXICILLIN) Allergy Intermediate RASH Verified 04/20/25 12:34 Penicillins (PENICILLINS) Allergy Intermediate RASH Verified 04/20/25 12:34 animal dander Allergy Mild SHORTNESS Verified 04/20/25 12:34 OF BREATH ciprofloxacin (From Cipro) Allergy Mild RASH Verified 04/20/25 12:34 vancomycin (Vancomycin) Allergy Mild SHORTNESS Verified 04/20/25 12:34 OF BREATH Review of Systems Review of Systems: Yes all other systems are reviewed and are negative PMFSH Past Medical History Attestation statement: The following information was validated with the patient. Source: old records reviewed Medical History Epigastric pain Allergies Low back pain Asthma-COPD overlap syndrome Tubular adenoma Diverticulosis of colon Tubular adenoma COPD (chronic obstructive pulmonary disease) Acute anxiety Allergic rhinitis Hypothyroid Asthma Asthma dependent on inhaled steroids Depression Anxiety Irritable bowel Acid reflux Diverticulosis large intestine w/o perforation or abscess w/o bleeding Surgical History H/O esophagogastroduodenoscopy (~12/2018) History of colonoscopy with polypectomy (~12/2018) History of mandibular surgery Hx of cholecystectomy Hx of tubal ligation Family History Family History Maternal Aunt Pancreatic cancer Maternal Grandmother Diabetes Stroke Maternal Grandfather Diabetes Mother COPD (chronic obstructive pulmonary disease) Father Respiratory failure Social History Social History Household Members: Spouse Household Members Other:: Lives with an 11-year-old granddaughter Housing: House Are you a primary rn intensive care unit to a significant other at home: No Do you presently have visiting nurse or other home services: No Alcohol intake: never Patient Tobacco Use Status: Never used Tobacco Smoked in Last 30 Days: No e-Cigarette/Vaping Use: Never Used Second Hand Smoke Exposure: No Advance Directives: No Advance Directives Information Provided: Yes Do you have a plan to hurt others: No Plan service: No Current occupational status: retired Current occupation: left hand dominant Cognitive needs: No Hearing needs: No Vision needs: Yes (glasses) Physical Exam Vital Signs: Vital Signs: Last Vital Signs Temp 96.9 F 04/20/25 16:03 Pulse 77 04/20/25 16:03 Resp 16 04/20/25 16:03 BP 122/52 L 04/20/25 16:03 Pulse Ox 95 04/20/25 16:03 O2 Del Method Room Air 04/20/25 16:03 BMI result Body Mass Index 31.1 Appearance: Alert.?Oriented to person, place and time. No acute distress.?Normal affect. Eyes: Pupils equal, round and reactive to light.? ENT: Pharynx normal.?? Neck: Normal inspection.? Neck supple.?? CVS: Heart sounds normal. Normal heart rate and rhythm.? Pulses normal.?? Respiratory: No respiratory distress.? Lung sounds clear to auscultation bilaterally?? Abdomen: Soft with left lower quadrant tenderness upon palpation. No rigidity or guarding. No CVA tenderness. Normoactive bowel sounds. No pulsatile mass.?? Skin: Skin warm and dry.? Normal skin color.? Extremities: No lower extremity edema.? Neuro: Moves all extremities spontaneously. Sensation intact bilaterally. CN II-XII intact. No focal neuro deficits. Ambulates with normal steady gait. Course Course Course Narrative: This is a Rapid Medical Examination (RME) performed by Will Fiore PA-C in triage. Full HPI, ROS, assessment and treatment plan per primary provider in the Main ED. 70 yo female with history of asthma, COPD, depression, anxiety, breast cancer, diverticulitis, who presents to the ER for evaluation of nausea, recurrent vomiting, and middle abdominal pain since midnight last night. She reports last BM was 1 hour ago and was normal. She reports dizziness and weakness. No known sick contacts. No fevers, +chills. No urinary symptoms or chest pain. Plan: labs, fluids, antiemetics, imaging per primary provider Reevaluation(s) Reevaluation #1: CT revealing extensive sigmoid diverticulosis but no evidence of acute diverticulitis, paraesophageal hiatal hernia s/p cholecystectomy otherwise no acute intra-abdominal or intrapelvic findings. Suspect a gastroenteritis at this time. performed p.o. trial after receiving antiemetic, tolerated well, no further vomiting or pain. At this time safe for discharge home, outpatient follow-up with primary care provider given strict return precautions. All questions answered Time: 16:24 Medications Administered Discontinued Medications Generic Name Dose Route Start Last Admin Trade Name Freq PRN Reason Stop Dose Admin Lactated Ringer's 1,000 mls @ 999 mls/hr 04/20/25 12:45 04/20/25 13:57 Lr IV 04/20/25 13:45 999 mls/hr .Q1H1M JOSÉ MIGUEL Administration Morphine Sulfate 2 mg 04/20/25 14:04 04/20/25 14:10 Morphine Sulfate 2 Mg/Ml Cartridge IVPUSH 04/20/25 14:05 2 mg ONCE ONE Administration Protocol Ondansetron HCl 4 mg 04/20/25 12:35 04/20/25 14:01 Ondansetron Hcl 4 Mg/2 Ml Vial IVPUSH 04/20/25 12:36 4 mg ONCE ONE Administration Medical Decision Making Medical Decision Making [facility] Narrative: Patient is a 70-year-old female with past medical history of asthma, COPD, depression, anxiety, breast cancer, diverticulitis, IBS, hypothyroidism who presents emergency department for evaluation of nausea vomiting and abdominal pain as per HPI. She has positional dizziness is suspect is likely secondary to dehydration in the setting of her frequent bouts of vomiting and lack of oral intake since yesterday. She has no focal neurological deficits, cerebellar function testing is normal. Her abdominal examination is notable for left lower quadrant tenderness upon palpation for which he will obtain CT of the abdomen pelvis for further evaluation at this time; potential diverticulitis, colitis, no associated pelvic pain, abnormal vaginal discharge or bleeding to suggest cancer PID, ruptured ovarian cyst, ovarian torsion. She is afebrile, no tachycardic, no hypotension. Denies associated genitourinary symptoms to suggest UTI/pyelonephritis, renal colic, hydronephrosis. Patient will receive 1 L normal saline IV fluid, Zofran IV for nausea, IV for pain. Differential Diagnosis Differential Diagnoses: The differential diagnosis associated with the presentation includes (See narrative above) Admission/Observation Consideration of admission/observation: Escalation of care including admission/observation considered (See narrative above ) Lab Data [facility] Lab Attestation statement: I reviewed the patient's lab results. CBC reveals leukocytosis with left shift, no anemia or thrombocytopenia. No electrolyte derangement. ALIYAH with BUN/creatinine 26/1.61, eGFR 32. Alk-phos is elevated to 10 otherwise unremarkable LFTs and lipase. Viral serologies are negative; influenza, RSV, COVID -19. 04/20/25 13:01 04/20/25 13:01 Labs: Lab Results 04/20/25 04/20/25 Range/Units 13:01 15:28 WBC 15.3 H (4.8-10.8) X10*3/uL RBC 4.42 (4.20-5.50) X10*6/uL Hgb 12.6 (12.0-16.0) g/dl Hct 37.5 (37.0-47.0) % MCV 84.8 (80.0-98.0) fL MCH 28.5 (27.0-33.0) pg MCHC 33.6 (31.0-35.0) g/dl RDW 13.4 (11.0-16.0) % Plt Count 229 (160-400) X10*3/uL MPV 10.8 (9.4-12.3) fL Immature Gran % (Auto) 0.3 (0.0-0.4) % Neut % (Auto) 86.7 H (45-73) % Lymph % (Auto) 7.2 L (20-40) % [place] % (Auto) 5.2 (2-11) % Eos % (Auto) 0.1 (0-4) % Baso % (Auto) 0.5 (0-2) % Lymph # (Auto) 1.1 L (1.2-4.9) X10*3/uL [place] # (Auto) 0.8 (0.1-1.2) X10*3/uL Eos # (Auto) 0.0 (0.0-0.4) X10*3/uL Baso # (Auto) 0.1 (0.0-0.2) X10*3/uL Abs Immat Gran (auto) 0.05 H (0.00-0.03) X10*3/uL Absolute Neuts (auto) 13.3 H (2.0-8.3) x10*3/uL Absolute Nucleated RBC 0.000 (0.0-0.012) X10*3/uL Nucleated RBC % (auto) 0.0 (0.0-0.2) /100WBC Sodium 139 (135-145) mmol/L Potassium 4.6 (3.3-5.1) mmol/L Chloride 106 (96-108) mmol/L Carbon Dioxide 26 (22-29) mmol/L Anion Gap 12 (12-20) BUN 26 H (9-16) mg/dL Creatinine 1.61 H (0.5-1.4) mg/dL Estim Creat Clear Calc 33.7 Estimated GFR 32 Random Glucose 109 (60-115) mg/dL Calcium 9.2 (8.4-10.2) mg/dL Magnesium 2.4 (1.6-2.6) mg/dL Total Bilirubin 0.6 (0.0-1.0) mg/dL Direct Bilirubin 0.2 (0.0-0.5) mg/dL AST 23 (5-31) U/L ALT 17 (0-31) U/L Alkaline Phosphatase 210 H (39-117) U/L Total Protein 7.5 (6.5-8.0) g/dL Albumin 4.2 (3.5-5.0) g/dL Lipase 15 (8-78) U/L Urine Color Yellow Urine Appearance Clear Urine pH >= 9.0 (5.0-9.0) Ur Specific [place] 1.015 (1.005-1.025) Urine Protein Trace (Neg-Trace) mg/dL Urine Glucose (UA) Negative (Negative) mg/dL Urine Ketones Negative (Negative) mg/dL Urine Blood Negative (Negative) Urine Nitrite Negative (Negative) Ur Leukocyte Esterase Negative (Negative) Influenza Type A (PCR) NEGATIVE (Negative) Influenza Type B (PCR) NEGATIVE (Negative) RSV RNA Qual (PCR) NEGATIVE (Negative) SARS-CoV-2 RNA (RT-PCR) NEGATIVE (Negative) Radiology Impression Discussion of test interpretation with radiology: I have reviewed the radiologist's reading. Radiologist Impression: CT/CT abdomen pelvis wo IV con IMPRESSION: 1. No acute findings in the abdomen or pelvis. 2. Extensive sigmoid colonic diverticulosis. No evidence of acute diverticulitis. 3. Moderate sized paraesophageal hiatus hernia. 4. Cholecystectomy. Independent Historian Clinical information obtained from an independent historian. History obtained from or confirmed by: Spouse and Other (son) External Record Review External record reviewed: Outpatient record Chronic Conditions Patient?s care impacted by: Other (See narrative above) Discharge Plan Discharge Clinical Impression: Gastroenteritis Patient Disposition: Home, Self-Care Instructions: Gastroenteritis (ED) Additional Instructions: Workup today is concerning for gastroenteritis, an illness of the GI tract possibly viral versus food-borne illness received antinausea medicine in the emergency department. I am sending a prescription for Zofran to the pharmacy to use as needed over the next few days. Be sure that you are staying well hydrated, and drinking adequate fluids at least 8, 8-12 oz glasses of water daily. Introduce a bland diet including crackers, bananas, rice, soup, toast, and boiled vegetables. This may progress to plain baked or boiled chicken or turkey. Avoid dairy products or foods high in fat or grease. Contact your primary care provider to arrange for follow-up appointment. Return to emergency department any new or worsening symptoms or concerns. Prescriptions: New ondansetron 4 mg tablet,disintegrating 4 mg PO Q8H PRN (Reason: nausea and vomiting) Qty: 10 0RF No Action sucralfate 100 mg/mL suspension 5 ml PO QID Qty: 200 0RF Rx Instructions: swish in mouth and swallow; use after food/drink albuterol sulfate 90 mcg/actuation HFA aerosol inhaler 2 puff inhalation Q4-6H PRN (Reason: shortness of breath or wheezing) Qty: 6.7 11RF Trelegy Ellipta 200-62.5-25 mcg blister with device 1 inh inhalation DAILY 30 Days Qty: 60 12RF levothyroxine 100 mcg tablet 100 mcg PO DAILY Qty: 90 1RF montelukast [Singulair] 10 mg tablet 10 mg PO BEDTIME 30 Days Qty: 30 11RF pantoprazole 40 mg tablet,delayed release (DR/EC) 40 mg PO DAILY Qty: 30 2RF docusate sodium [Colace] 100 mg capsule 200 mg PO BEDTIME PRN (Reason: Constipation) calcium carbonate-vitamin D3 [Calcium 600 + D(3)] 600 mg-10 mcg (400 unit) Tablet 1 tab PO BID Qty: 60 4RF ondansetron 4 mg tablet,disintegrating 4 mg PO DAILY PRN (Reason: nausea and vomiting) 5 Days Qty: 10 0RF loperamide [Imodium A-D] 2 mg tablet 4 mg PO DAILY PRN (Reason: loose stool) Qty: 10 0RF topiramate 25 mg tablet 25 mg PO DAILY cholecalciferol (vitamin D3) 50 mcg (2,000 unit) capsule 50 mcg PO BID acetaminophen 650 mg tablet extended release 650 mg PO Q8H PRN (Reason: pain) (DME) nebulizers Misc See Rx Instructions .Route Rx Instructions: As directed hydroxyzine HCl 25 mg tablet 25 mg PO BID citalopram 20 mg tablet 20 mg PO DAILY oxymetazoline [Afrin (oxymetazoline)] 0.05 % spray,non-aerosol 2 spray intranasal Q12H PRN (Reason: nasal congestion) 5 Days Qty: 22 0RF cetirizine [Zyrtec] 10 mg tablet 10 mg PO DAILY 30 Days Qty: 30 0RF famotidine [Pepcid] 40 mg tablet 40 mg PO BEDTIME 30 Days Qty: 30 10RF budesonide 0.5 mg/2 mL suspension for nebulization 0.5 mg inhalation DAILY 30 Days Qty: 60 5RF furosemide 40 mg tablet 40 mg PO DAILY Qty: 30 0RF hydrocortisone [Procto-Med HC] 2.5 % cream with perineal applicator 1 appl CA BID-QID PRN (Reason: hemorrhoids) Qty: 30 3RF ipratropium-albuterol 0.5 mg-3 mg(2.5 mg base)/3 mL solution for nebulization 3 ml inhalation BID 30 Days Qty: 180 8RF meloxicam 15 mg tablet 15 mg PO DAILY PRN (Reason: pain (scale score 7-10)) 30 Days Qty: 30 3RF Referrals: Jesús Cordoba PA-C [Primary Care Provider, Internal Medicine] Print Language: Gabonese
[2025-04-20 13:08] LABS: Basophils Absolute Auto 0.1 X10*3/uL (0.0-0.2); Basophils Percent Auto 0.5 % (0-2); Eosinophils Percent Auto 0.1 % (0-4); Hematocrit 37.5 % (37.0-47.0); Hemoglobin 12.6 g/dl (12.0-16.0); Imm Gran Abs Auto 0.05 X10*3/uL (0.00-0.03); Imm Gran Pct Auto 0.3 % (0.0-0.4); Lymphocytes Absolute Auto 1.1 X10*3/uL (1.2-4.9); Lymphocytes Percent Auto 7.2 % (20-40); MANUAL DIFF FLAG NO; Mean Corpuscular HGB Conc 33.6 g/dl (31.0-35.0); Mean Corpuscular Hemoglobin 28.5 pg (27.0-33.0); Mean Corpuscular Volume 84.8 fL (80.0-98.0); Mean Platelet Volume 10.8 fL (9.4-12.3); Monocytes Absolute Auto 0.8 X10*3/uL (0.1-1.2); Monocytes Percent Auto 5.2 % (2-11); Neutrophils Absolute Auto 13.3 x10*3/uL (2.0-8.3); Neutrophils Percent Auto 86.7 % (45-73); Platelet Count 229 X10*3/uL (160-400); Red Blood Count 4.42 X10*6/uL (4.20-5.50); Red Cell Distribution Width 13.4 % (11.0-16.0); White Blood Count 15.3 X10*3/uL (4.8-10.8)
[2025-04-20 13:29] LABS: Alanine Aminotransferase 17 U/L (0-31); Albumin Level 4.2 g/dL (3.5-5.0); Alkaline Phosphatase 210 U/L (39-117); Anion Gap 12 (12-20); Aspartate Amino Transferase 23 U/L (5-31); Bilirubin Direct 0.2 mg/dL (0.0-0.5); Bilirubin Total 0.6 mg/dL (0.0-1.0); Blood Urea Nitrogen 26 mg/dL (9-16); Calcium 9.2 mg/dL (8.4-10.2); Carbon Dioxide 26 mmol/L (22-29); Chloride 106 mmol/L (96-108); Creatinine Clr Calc Pharmacy 33.7; Estimated Glomerular Filt Rate 32; Glucose Random 109 mg/dL (60-115); Lipase 15 U/L (8-78); Magnesium 2.4 mg/dL (1.6-2.6); Potassium 4.6 mmol/L (3.3-5.1); Sodium 139 mmol/L (135-145); Total Protein 7.5 g/dL (6.5-8.0)
[2025-04-20 13:47] VITALS: BP 133/74; PULSE 96; RESP 17; O2SAT 98
[2025-04-20] MEDS: Lactated Ringers 1,000 ML 999 ML IV (13:57)
[2025-04-20] MEDS: ondansetron HCL 4 MG/2 ML VIAL IVPUSH (14:01)
--- NOTE | 2025-04-20 14:03 | PC.NURSE ---
Addendum entered by Shona Pack RN 04/20/25 14:05: Patient is a 70 yo female with history of asthma, COPD, depression, anxiety, breast cancer, diverticulitis, IBS, hypothyroidism who presents to the ER for evaluation of nausea, recurrent vomiting, and lower abdominal pain since midnight last night. She reports last BM was 1 hour ago and was normal. She also reports dizziness and weakness. Placed on monitoring and evaluation advisor and NSR noted. Lungs clear bilat. Respirations even and non-labored. Abdomen soft, with positive bowel sounds. c/o generalized abdominal pain with assoc N/V. No significant tenderness noted but appears uncomfortable. Positive pedal pulses with no edema. Original Note: Medical History Epigastric pain Allergies Low back pain Asthma-COPD overlap syndrome Tubular adenoma Diverticulosis of colon Tubular adenoma COPD (chronic obstructive pulmonary disease) Acute anxiety Allergic rhinitis Hypothyroid Asthma Asthma dependent on inhaled steroids Depression Anxiety Irritable bowel Acid reflux Diverticulosis large intestine w/o perforation or abscess w/o bleeding Surgical History H/O esophagogastroduodenoscopy (~12/2018) History of colonoscopy with polypectomy (~12/2018) History of mandibular surgery Hx of cholecystectomy Hx of tubal ligation
--- OUTSIDE RECORDS SUMMARY | 2025-04-20 14:09 | XMS_ITS | Encounter Summary ---
Author Organization [employer] Address [address] [place] [address] Care Team Providers Care Traffic Circuit Engineer Name Role Phone Sosa Clement MD Primary Care Provider [phone] Encounter Details Date Type Department Care Team (Late st Contact Info) Description 04/21/2023 Abstract [facility] [address] [place] [address] Sosa Clement MD [address] [place] [address] Social History Tobacco Use Types Packs/Day Years [...] documented as of this encounter Care Teams Traffic Circuit Engineer Relationship Specialty Start Date End Date Sosa Clement MD [address] [place] [id number] PCP - General Family Medicine 11/01/18 documented as of this encounter
[2025-04-20] MEDS: Morphine Sulfate 2 MG/ML CARTRIDGE IVPUSH (14:10)
[2025-04-20 14:13] LABS: Influenza A PCR NEGATIVE (Negative); Influenza B PCR NEGATIVE (Negative); Resp Syncy Virus RNA Qual PCR NEGATIVE (Negative); SARS COV2 PCR INHOUSE NEGATIVE (Negative)
[2025-04-20 15:37] LABS: Appearance Urine Clear; Color Urine Yellow; Glucose Urine UA Negative (Negative); Leukocyte Esterase Urine Negative (Negative); Nitrite Urine Negative (Negative); PH >= 9.0 (5.0-9.0); Specific Gravity - Urine 1.015 (1.005-1.025); Urine Blood Negative (Negative); Urine Ketones Negative (Negative); Urine Protein Trace mg/dL (Neg-Trace)
[2025-04-20 16:03] VITALS: BP 122/52; PULSE 77; RESP 16; TEMP 36.1; O2SAT 95
--- NOTE | 2025-04-20 16:31 | MHC.EDTECH ---
Gave patient some crackers and gingerale for a PO challenge
[2025-04-20 18:06] VITALS: BP 122/52; PULSE 77; RESP 16; TEMP 36.1; O2SAT 95
== END 2025-04-20 18:07 | disposition home or self-care (01) ==
PROVIDERS: Physician Assistant; Emergency Provider Emergency Medicine; PCP Physician Assistant
DX: K52.9 Noninfective gastroenteritis and colitis, unspecified (principal); R11.2 Nausea with vomiting, unspecified; R53.1 Weakness; R94.31 Abnormal electrocardiogram [ECG] [EKG]; Z79.899 Other long term (current) drug therapy; Z03.818 Encounter for observation for suspected exposure to other biological agents ruled out
CPT/HCPCS: 0241U; 36415; 74176; 80048; 80076; 81003; 83690; 83735; 85025; 93005; 96361; 96374; 96375; 99284; 99285; J2270; J2405; J7120

== ENCOUNTER → 2025-04-20 13:47 | Outpatient (BNV) | payer MEDICARE, MEDICAID, SELFPAY | PROVIDERS: Emergency Provider Emergency Medicine; PCP Physician Assistant; Visit Provider Internal Medicine Cardiovascular Disease | DX: R94.31 Abnormal electrocardiogram [ECG] [EKG] (principal); R11.2 Nausea with vomiting, unspecified; R19.7 Diarrhea, unspecified | CPT/HCPCS: 93010 ==

== ENCOUNTER → 2025-04-20 14:05 | Outpatient (BNV) | payer MEDICARE, MEDICAID, SELFPAY | PROVIDERS: Emergency Provider Emergency Medicine; PCP Physician Assistant; Visit Provider Radiology Diagnostic Radiology | DX: K57.30 Diverticulosis of large intestine without perforation or abscess without bleeding (principal) | CPT/HCPCS: 74176 ==

== ENCOUNTER 2025-04-22 14:12 | Emergency (ER) | payer MEDICARE, MEDICAID, SELFPAY ==
--- NOTE | ~2025-04-22 | CT_ITS ---
CLINICAL HISTORY: llq pain CT abdomen and pelvis with contrast Comparison: CT/[place] - CT ABDOMEN PELVIS WO IV CON - 04/20/25 15:15 EDT Findings: Large hiatal hernia. Status post cholecystectomy. Solid organs are within normal limits. Scattered diverticulosis of the colon with mild wall thickening and mild surrounding fat stranding of the proximal sigmoid colon Pelvic contents unremarkable. Normal appendix. No acute fracture. Moderate to severe multilevel spondylosis of the lumbar spine, most notably at L3-L4, and L4-L5 levels with posterior disc bulges causing severe spinal canal and neural foraminal narrowings. IMPRESSION: Findings are concerning for acute uncomplicated sigmoid diverticulitis. Large hiatal hernia, unchanged. Moderate to severe multilevel spondylosis of the lumbar spine, most notably at L3-L4 and L4 level with severe spinal canal and neural foraminal narrowings. This document has been electronically signed by: Genesis Montano MD on 04/22/2025 20:15:57
--- NOTE | ~2025-04-22 | XR_ITS ---
CLINICAL HISTORY: cp 1 view chest x-ray. Comparison: None Findings: No consolidation. Heart size normal. No acute fracture. Impression: Lungs are clear. Increased retrocardiac density due to 4.5 cm hiatal hernia documented on 05/19/2024. This document has been electronically signed by: Lester Lemos MD on 04/22/2025 17:12:03
[2025-04-22 14:34] VITALS: BP 138/77; PULSE 94; RESP 18; TEMP 36.9; O2SAT 97; BMI 31.1
[2025-04-22] MEDS: 0.9 % Sodium Chloride 1,000 ML 999 ML IV (15:25)
[2025-04-22] MEDS: ondansetron HCL 4 MG/2 ML VIAL IVPUSH (15:26)
[2025-04-22] MEDS: HYDROmorphone HCl 0.5 MG/0.5 ML SYRINGE IVPUSH (15:27)
[2025-04-22 15:39] LABS: MANUAL DIFF FLAG NO
[2025-04-22 15:40] LABS: Basophils Absolute Auto 0.1 X10*3/uL (0.0-0.2); Basophils Percent Auto 0.5 % (0-2); Eosinophils Percent Auto 0.2 % (0-4); Hemoglobin 12.5 g/dl (12.0-16.0); Imm Gran Abs Auto 0.05 X10*3/uL (0.00-0.03); Imm Gran Pct Auto 0.4 % (0.0-0.4); Lymphocytes Absolute Auto 1.6 X10*3/uL (1.2-4.9); Lymphocytes Percent Auto 12.1 % (20-40); Mean Corpuscular HGB Conc 32.9 g/dl (31.0-35.0); Mean Corpuscular Hemoglobin 28.1 pg (27.0-33.0); Mean Corpuscular Volume 85.4 fL (80.0-98.0); Mean Platelet Volume 10.9 fL (9.4-12.3); Monocytes Absolute Auto 1.1 X10*3/uL (0.1-1.2); Monocytes Percent Auto 8.6 % (2-11); Neutrophils Percent Auto 78.2 % (45-73); Platelet Count 218 X10*3/uL (160-400); Red Blood Count 4.45 X10*6/uL (4.20-5.50); Red Cell Distribution Width 12.9 % (11.0-16.0); White Blood Count 12.8 X10*3/uL (4.8-10.8)
--- NOTE | 2025-04-22 15:49 | ED_ITS ---
HPI - Abdominal Pain General Chief Complaint: Abdominal Pain Stated Complaint: abd pain Time Seen by Provider: 04/22/25 14:51 History of Present Illness HPI narrative: patient is 70 years old with a history of previous cholecystectomy. History of tubal ligation. Was here 2 days prior for similar pain but it got much worse. Patient received a CAT scan at that time. Grossly was negative per patient. No urinary tract infection. No fever no chills. Now having nausea vomiting. Not feeling well. Came to the ED. Related Data Home Medications ?Medication ?Instructions ?Recorded ?Confirmed cholecalciferol (vitamin D3) 50 50 mcg PO BID 07/30/20 02/08/25 mcg (2,000 unit) capsule acetaminophen 650 mg 650 mg PO Q8H PRN pain 10/0702/08/25 tablet,extended release citalopram 20 mg tablet 20 mg PO DAILY 01/03/2401/30 docusate sodium 100 mg capsule 200 mg PO BEDTIME PRN C onstipation 01/03/24 02/08/25 (Colace) hydroxyzine HCl 25 mg tablet 25 mg PO BID 01/03/2408/25 nebulizers 01/03/24 02/08/25 topiramate 25 mg tablet 25 mg PO DAILY 10/06/2401/30 Previous Rx's ?Medication ?Instructions ?Recorded loperamide 2 mg tablet (Imodium 4 mg (2 x 2 mg) PO KIERA LY PRN loose 05/19/24 A-D) stool #10 tabs ondansetron 4 mg disintegrating 4 mg PO DAILY PRN naus ea and 05/19/24 tablet vomiting 5 days #10 tabs sucralfate 100 mg/mL oral 5 ml PO QID #200 mL 06/02/24 suspension oxymetazoline 0.05 % nasal spray 2 spray intranasal Q1 2H PRN nasal 06/27/24 (Afrin (oxymetazoline)) congestion 5 days #22 mL calcium 600 mg (as 1 tab PO BID #60 tabs carbonate)-vitamin D3 10 mcg (400 unit) tablet (Calcium 600 + D(3)) budesonide 0.5 mg/2 mL suspension 0.5 mg (2 mL) inhala tion DAILY 30 02/08/25 for nebulization days #60 mL furosemide 40 mg tablet 40 mg PO DAILY #30 tabs 01/30 0 hydrocortisone 2.5 % topical cream 1 appl MO BID-QID P RN hemorrhoids 02/08/25 with perineal applicator #30 grams (Procto-Med HC) ipratropium 0.5 mg-albuterol 3 mg 3 ml inhalation BID severe 02/08/25 (2.5 mg base)/3 mL nebulization copd/asthma 30 days #1 80 mL soln meloxicam 15 mg tablet 15 mg PO DAILY PRN pain (sca le 02/08/25 score 7-10) 30 days #30 tabs albuterol sulfate 90 mcg/actuation 2 puff inhalation Q 4-6H PRN 03/14/25 aerosol inhaler shortness of breath or wheez ing #6.7 grams fluticasone fur. 200 mcg-umeclid 1 inh inhalation DEDRICK Y 30 days #60 03/14/25 62.5 mcg-vilant 25 mcg ea inhalat.powder (Trelegy Ellipta) levothyroxine 100 mcg tablet 100 mcg PO DAILY #90 tabs 03/14/25 montelukast 10 mg tablet 10 mg PO BEDTIME 30 days #30 tabs 03/14/25 (Singulair) pantoprazole 40 mg tablet,delayed 40 mg PO DAILY #30 t abs 03/14/25 release cetirizine 10 mg tablet (Zyrtec) 10 mg PO DAILY 30 day s #30 tabs 04/05/25 famotidine 40 mg tablet (Pepcid) 40 mg PO BEDTIME 30 d ays #30 tabs 04/05/25 ondansetron 4 mg disintegrating 4 mg PO Q8H PRN nausea and 04/20/25 tablet vomiting #10 tabs metronidazole 500 mg tablet 500 mg PO Q8H 10 days #30 tabs 04/22/25 sulfamethoxazole 800 1 tab PO BID diverticulitis #20 04/22/25 mg-trimethoprim 160 mg tablet tabs (Bactrim DS) Allergies Allergy/AdvReac Type Severity Reaction Status Date / Time amoxicillin (AMOXICILLIN) Allergy Intermediate RASH Verified 04/22/25 14:36 Penicillins (PENICILLINS) Allergy Intermediate RASH Verified 04/22/25 14:36 animal dander Allergy Mild SHORTNESS Verified 04/22/25 14:36 OF BREATH ciprofloxacin (From Cipro) Allergy Mild RASH Verified 04/22/25 14:36 vancomycin (Vancomycin) Allergy Mild SHORTNESS Verified 04/22/25 14:36 OF BREATH Review of Systems Review of Systems positive abdominal pain Yes all other systems are reviewed and are negative [facility] Past Medical History Attestation statement: The following information was validated with the patient. Medical History Epigastric pain Allergies Low back pain Asthma-COPD overlap syndrome Tubular adenoma Diverticulosis of colon Tubular adenoma COPD (chronic obstructive pulmonary disease) Acute anxiety Allergic rhinitis Hypothyroid Asthma Asthma dependent on inhaled steroids Depression Anxiety Irritable bowel Acid reflux Diverticulosis large intestine w/o perforation or abscess w/o bleeding Surgical History H/O esophagogastroduodenoscopy (~12/2018) History of colonoscopy with polypectomy (~12/2018) History of mandibular surgery Hx of cholecystectomy Hx of tubal ligation Family History Family History Maternal Aunt Pancreatic cancer Maternal Grandmother Diabetes Stroke Maternal Grandfather Diabetes Mother COPD (chronic obstructive pulmonary disease) Father Respiratory failure Social History Social History Household Members: Spouse Household Members Other:: Lives with an 11-year-old granddaughter Housing: House Are you a primary career development coordinator/teacher to a significant other at home: No Do you presently have visiting nurse or other home services: No Alcohol intake: never Patient Tobacco Use Status: Never used Tobacco e-Cigarette/Vaping Use: Never Used Second Hand Smoke Exposure: No Use of substances other than those prescribed or required for medical reasons: No Advance Directives: No Advance Directives Information Provided: No Do you have a plan to hurt others: No Plan service: No Current occupational status: retired Current occupation: left hand dominant Cognitive needs: No Hearing needs: No Vision needs: Yes (glasses) Physical Exam ED Vital Signs: Vital Signs - 24 hr 04/22/25 14:34 04/22/25 18:12 Temperature 98.5 F 98.2 F Pulse Rate 94 69 Respiratory Rate 18 16 Blood Pressure 138/77 136/67 Pulse Oximetry 97 97 Oxygen Delivery Method Room Air Room Air BMI result Body Mass Index 31.1 Appearance: Alert. Oriented X3. No acute distress. Eyes: Pupils equal, round and reactive to light. ENT: Pharynx normal. Neck: Normal inspection. Neck supple. No lymph nodes noted. No crepitus CVS: Normal heart rate and rhythm. Pulses normal. Normal S1 and S2 Respiratory: No respiratory distress. Breath sounds normal. No Wheezing. No rales Abdomen: Soft, mi left lower quadrant tenderness. No rigidity. No distention. good BS x4 Skin: Skin warm and dry. Normal skin color. Normal skin turgor. Extremities: No lower extremity edema. Neurovascular intact to all extremities. No Lacerations. No Rash Neuro: Oriented X 3. No motor deficit. No sensory deficit. Moving all extermities. No slurred speech Medical Decision Making Medical Decision Making [facility] Narrative: patient presented with having worsening abdominal pain. CT scan 2 days ago was negative. We repeated the CT because patient had an slightly elevated white count at 12. CT scan positive for diverticulitis no abscess no perforation. Patient has multitude of allergies all rash with Cipro patient had tightness of her throat. We elected to give patient Rocephin and Flagyl here in the emergency department. Will give patient Bactrim and Flagyl on an outpatient basis. Follow-up on an outpatient basis Differential Diagnosis Differential Diagnoses: The differential diagnosis associated with the presentation includes Admission/Observation Consideration of admission/observation: Escalation of care including admission/observation considered Lab Data [facility] Lab Attestation statement: I reviewed the patient's lab results. 04/22/25 15:25 04/22/25 18:20 Labs: Lab Results 04/22/25 04/22/25 04/22/25 Range/Units 15:25 18:14 18:20 WBC 12.8 H (4.8-10.8) X10*3/uL RBC 4.45 (4.20-5.50) X10*6/uL Hgb 12.5 (12.0-16.0) g/dl Hct 38.0 (37.0-47.0) % MCV 85.4 (80.0-98.0) fL MCH 28.1 (27.0-33.0) pg MCHC 32.9 (31.0-35.0) g/dl RDW 12.9 (11.0-16.0) % Plt Count 218 (160-400) X10*3/uL MPV 10.9 (9.4-12.3) fL Immature Gran % (Auto) 0.4 (0.0-0.4) % Neut % (Auto) 78.2 H (45-73) % Lymph % (Auto) 12.1 L (20-40) % Kidder % (Auto) 8.6 (2-11) % Eos % (Auto) 0.2 (0-4) % Baso % (Auto) 0.5 (0-2) % Lymph # (Auto) 1.6 (1.2-4.9) X10*3/uL Kidder # (Auto) 1.1 (0.1-1.2) X10*3/uL Eos # (Auto) 0.0 (0.0-0.4) X10*3/uL Baso # (Auto) 0.1 (0.0-0.2) X10*3/uL Abs Immat Gran (auto) 0.05 H (0.00-0.03) X10*3/uL Absolute Neuts (auto) 10.0 H (2.0-8.3) x10*3/uL Absolute Nucleated RBC 0.000 (0.0-0.012) X10*3/uL Nucleated RBC % (auto) 0.0 (0.0-0.2) /100WBC Sodium 140 (135-145) mmol/L Potassium 4.2 (3.3-5.1) mmol/L Chloride 107 (96-108) mmol/L Carbon Dioxide 24 (22-29) mmol/L Anion Gap 13 (12-20) BUN 16 (9-16) mg/dL Creatinine 1.36 (0.5-1.4) mg/dL Estim Creat Clear Calc 39.9 Estimated GFR 38 Random Glucose 91 (60-115) mg/dL Lactic Acid 0.7 (0.5-2.0) mmol/L Calcium 8.5 D (8.4-10.2) mg/dL Total Bilirubin 0.6 (0.0-1.0) mg/dL Direct Bilirubin 0.2 (0.0-0.5) mg/dL AST 23 (5-31) U/L ALT 13 (0-31) U/L Alkaline Phosphatase 174 H (39-117) U/L Total Protein 6.6 (6.5-8.0) g/dL Albumin 3.7 (3.5-5.0) g/dL Lipase 9 (8-78) U/L Urine Color Dark Yellow Urine Appearance Cloudy Urine pH 5.5 (5.0-9.0) Ur Specific Randall >= 1.030 H (1.005-1.025) Urine Protein 30 (1+) H (Neg-Trace) mg/dL Urine Glucose (UA) Negative (Negative) mg/dL Urine Ketones 15 (Negative) mg/dL Urine Blood Negative (Negative) Urine Nitrite Negative (Negative) Ur Leukocyte Esterase Trace H (Negative) Urine RBC 11-20 H (0-2) /HPF Urine WBC 0-5 (0-5) /HPF Urine WBC Clumps Present Ur Squamous Epith Cells 3-5 (0-2) /HPF Calcium Oxalate Crystal Present Urine Bacteria None Seen (None Seen) Hyaline Casts 11-20 (0-2) /LPF Radiology Impression Discussion of test interpretation with radiology: I have reviewed the radiologist's reading. External Record Review External record reviewed: Inpatient record Social Determinants Patient?s care significantly limited by Social Determinants of Health including: Problems related to primary support group Medications Administered Discontinued Medications Generic Name Dose Route Start Last Admin Trade Name Echo PRN Reason Stop Dose Admin Hydromorphone HCl 0.5 mg 04/22/25 15:02 04/22/25 15:27 Hydromorphone Hcl 0.5 Mg/0.5 Ml Syringe IVPUSH 04/22/25 15:03 0.5 mg ONCE ONE Administration Protocol Sodium Chloride 1,000 mls @ 999 mls/hr 04/22/25 15:15 04/22/25 16:26 Ns IV 04/22/25 16:15 Infused .Q1H1M JOSÉ MIGUEL Infusion Iohexol 100 ml 04/22/25 18:56 04/22/25 18:58 Iohexol 350 Mg/Ml 100 Ml Infus..Btl IV 04/22/25 18:57 85 ml ONCE ONE Administration Ondansetron HCl 4 mg 04/22/25 15:05 04/22/25 15:26 Ondansetron Hcl 4 Mg/2 Ml Vial IVPUSH 04/22/25 15:06 4 mg ONCE ONE Administration Discharge Plan Discharge Clinical Impression: Diverticulosis large intestine w/o perforation or abscess w/o bleeding Patient Disposition: Home, Self-Care Instructions: Diverticulitis (DC) Prescriptions: New sulfamethoxazole-trimethoprim [Bactrim DS] 800-160 mg tablet 1 tab PO BID Qty: 20 0RF metronidazole 500 mg tablet 500 mg PO Q8H 10 Days Qty: 30 0RF No Action sucralfate 100 mg/mL suspension 5 ml PO QID Qty: 200 0RF Rx Instructions: swish in mouth and swallow; use after food/drink albuterol sulfate 90 mcg/actuation HFA aerosol inhaler 2 puff inhalation Q4-6H PRN (Reason: shortness of breath or wheezing) Qty: 6.7 11RF Trelegy Ellipta 200-62.5-25 mcg blister with device 1 inh inhalation DAILY 30 Days Qty: 60 12RF levothyroxine 100 mcg tablet 100 mcg PO DAILY Qty: 90 1RF montelukast [Singulair] 10 mg tablet 10 mg PO BEDTIME 30 Days Qty: 30 11RF pantoprazole 40 mg tablet,delayed release (DR/EC) 40 mg PO DAILY Qty: 30 2RF docusate sodium [Colace] 100 mg capsule 200 mg PO BEDTIME PRN (Reason: Constipation) calcium carbonate-vitamin D3 [Calcium 600 + D(3)] 600 mg-10 mcg (400 unit) Tablet 1 tab PO BID Qty: 60 4RF ondansetron 4 mg tablet,disintegrating 4 mg PO DAILY PRN (Reason: nausea and vomiting) 5 Days Qty: 10 0RF loperamide [Imodium A-D] 2 mg tablet 4 mg PO DAILY PRN (Reason: loose stool) Qty: 10 0RF topiramate 25 mg tablet 25 mg PO DAILY ondansetron 4 mg tablet,disintegrating 4 mg PO Q8H PRN (Reason: nausea and vomiting) Qty: 10 0RF cholecalciferol (vitamin D3) 50 mcg (2,000 unit) capsule 50 mcg PO BID acetaminophen 650 mg tablet extended release 650 mg PO Q8H PRN (Reason: pain) (DME) nebulizers Misc See Rx Instructions .Route Rx Instructions: As directed hydroxyzine HCl 25 mg tablet 25 mg PO BID citalopram 20 mg tablet 20 mg PO DAILY oxymetazoline [Afrin (oxymetazoline)] 0.05 % spray,non-aerosol 2 spray intranasal Q12H PRN (Reason: nasal congestion) 5 Days Qty: 22 0RF cetirizine [Zyrtec] 10 mg tablet 10 mg PO DAILY 30 Days Qty: 30 0RF famotidine [Pepcid] 40 mg tablet 40 mg PO BEDTIME 30 Days Qty: 30 10RF budesonide 0.5 mg/2 mL suspension for nebulization 0.5 mg inhalation DAILY 30 Days Qty: 60 5RF furosemide 40 mg tablet 40 mg PO DAILY Qty: 30 0RF hydrocortisone [Procto-Med HC] 2.5 % cream with perineal applicator 1 appl MO BID-QID PRN (Reason: hemorrhoids) Qty: 30 3RF ipratropium-albuterol 0.5 mg-3 mg(2.5 mg base)/3 mL solution for nebulization 3 ml inhalation BID 30 Days Qty: 180 8RF meloxicam 15 mg tablet 15 mg PO DAILY PRN (Reason: pain (scale score 7-10)) 30 Days Qty: 30 3RF Referrals: Delmar Zhang MD [Physician, Gastroenterology] - 04/25/25 Print Language: Thai
[2025-04-22 15:55] LABS: Lactic Acid 0.7 mmol/L (0.5-2.0)
[2025-04-22 18:12] VITALS: BP 136/67; PULSE 69; RESP 16; TEMP 36.8; O2SAT 97
[2025-04-22 18:19] LABS: Appearance Urine Cloudy; Color Urine Dark Yellow; Glucose Urine UA Negative (Negative); Leukocyte Esterase Urine Trace (Negative); Nitrite Urine Negative (Negative); PH 5.5 (5.0-9.0); Specific Gravity - Urine >= 1.030 (1.005-1.025); UMIC TRIGGER UACC YES; Urine Blood Negative (Negative); Urine Ketones 15 mg/dL (Negative); Urine Protein 30 (1+) mg/dL (Neg-Trace)
[2025-04-22 18:27] LABS: Bacteria Urine None Seen (None Seen); Calcium Oxalate Crystals Urine Present; WBC Clumps Urine Present; WBC Urine 0-5 /HPF (0-5)
[2025-04-22 18:40] LABS: Alanine Aminotransferase 13 U/L (0-31); Albumin Level 3.7 g/dL (3.5-5.0); Alkaline Phosphatase 174 U/L (39-117); Anion Gap 13 (12-20); Aspartate Amino Transferase 23 U/L (5-31); Bilirubin Direct 0.2 mg/dL (0.0-0.5); Bilirubin Total 0.6 mg/dL (0.0-1.0); Blood Urea Nitrogen 16 mg/dL (9-16); Calcium 8.5 mg/dL (8.4-10.2); Carbon Dioxide 24 mmol/L (22-29); Chloride 107 mmol/L (96-108); Creatinine Clr Calc Pharmacy 39.9; Estimated Glomerular Filt Rate 38; Glucose Random 91 mg/dL (60-115); Lipase 9 U/L (8-78); Potassium 4.2 mmol/L (3.3-5.1); Sodium 140 mmol/L (135-145); Total Protein 6.6 g/dL (6.5-8.0)
[2025-04-22] MEDS: iohexoL 350 MG/ML 100 ML INFUS..BTL IV (18:58)
[2025-04-22] MEDS: cefTRIAXone sodium 1 GM VIAL IVPUSH (20:37)
[2025-04-22] MEDS: metroNIDAZOLE/NS 500 MG/100 ML PIGGYBACK 100 MG IV (21:15)
[2025-04-22 22:19] VITALS: BP 128/62; PULSE 69; RESP 16; TEMP 36.8; O2SAT 100
== END 2025-04-22 22:20 | disposition home or self-care (01) ==
PROVIDERS: Emergency Provider Emergency Medicine Emergency Medical Services; PCP Physician Assistant
DX: K44.9 Diaphragmatic hernia without obstruction or gangrene (principal); K57.30 Diverticulosis of large intestine without perforation or abscess without bleeding; R07.89 Other chest pain; R10.2 Pelvic and perineal pain; R11.2 Nausea with vomiting, unspecified; Z79.899 Other long term (current) drug therapy
CPT/HCPCS: 36415; 71045; 74177; 80048; 80076; 81001; 83605; 83690; 85025; 96361; 96365; 96375; 99284; J0696; J1171; J1836; J2405; Q9967

== ENCOUNTER → 2025-04-22 15:02 | Outpatient (BNV) | payer MEDICARE, MEDICAID, SELFPAY | PROVIDERS: Emergency Provider Emergency Medicine Emergency Medical Services; PCP Physician Assistant; Visit Provider Radiology Diagnostic Radiology | DX: K44.9 Diaphragmatic hernia without obstruction or gangrene (principal); R07.9 Chest pain, unspecified | CPT/HCPCS: 71045; 74177 ==

== ENCOUNTER 2025-04-25 09:57 | Outpatient (AMB) | payer MEDICARE, MEDICAID, SELFPAY ==
[2025-04-25 10:06] VITALS: BP 100/62; PULSE 80; O2SAT 94; BMI 30.8
--- NOTE | 2025-04-25 10:06 | A.OFFPC_ITS ---
Vital Signs 04/25/25 10:06 Height 5 ft 4 in Weight 179 lb 4 oz BMI 30.8 BP 100/62 Blood Pressure Location Lt brachial Position Sitting Pulse 80 Pulse Source Pulse Oximeter Pulse Oximetry (%) 94 Oxygen Delivery Method Room Air Intake Visit Reasons: [facility] 04/22 Brim Flexer Required: No Accompanied by: Spouse Allergies amoxicillin (AMOXICILLIN) Allergy (Intermediate, Verified 04/25/25 10:11) RASH Penicillins (PENICILLINS) Allergy (Intermediate, Verified 04/25/25 10:11) RASH animal dander Allergy (Mild, Verified 04/25/25 10:11) SHORTNESS OF BREATH ciprofloxacin (From Cipro) Allergy (Mild, Verified 04/25/25 10:11) RASH vancomycin (Vancomycin) Allergy (Mild, Verified 04/25/25 10:11) SHORTNESS OF BREATH Medication List - Last Reconciled 04/25/25 by Jesús Cordoba PA-C acetaminophen ER 650 mg PO Q8H PRN albuterol sulfate 90 mcg/actuation 2 puffs inhalation Q4-6H PRN budesonide 0.5 mg (2 mL) inhalation DAILY 30 days calcium carbonate-vitamin D3 600 mg-10 mcg (400 unit) (Calcium 600 + D(3)) 1 tab PO BID cetirizine (Zyrtec) 10 mg PO DAILY 30 days cholecalciferol (vitamin D3) 50 mcg PO BID citalopram 20 mg PO DAILY docusate sodium (Colace) 200 mg PO BEDTIME PRN famotidine (Pepcid) 40 mg PO BEDTIME 30 days bhrfufcjmai-ogzwmklin-kggjbwsk 200-62.5-25 mcg (Trelegy Ellipta) 1 inh inhalation DAILY 30 days hydrocortisone 2.5% (Procto-Med HC) 1 appl [place] BID-QID PRN hydroxyzine HCl 25 mg PO BID ipratropium-albuterol 0.5 mg-3 mg(2.5 mg base)/3 mL 3 mL inhalation BID 30 days levothyroxine 100 mcg PO DAILY loperamide (Imodium A-D) 4 mg (2 x 2 mg) PO DAILY PRN meloxicam 15 mg PO DAILY PRN 30 days metronidazole 500 mg PO Q8H 10 days montelukast (Singulair) 10 mg PO BEDTIME 30 days nebulizers As directed ondansetron 4 mg PO DAILY PRN 5 days ondansetron 4 mg PO Q8H PRN oxymetazoline 0.05% (Afrin (oxymetazoline)) 2 sprays intranasal Q12H PRN 5 days pantoprazole 40 mg PO DAILY sucralfate 5 mL PO QID sulfamethoxazole-trimethoprim 800-160 mg (Bactrim DS) 1 tab PO BID topiramate 25 mg PO DAILY Tobacco use date assessed: 02/08/25 Fall risk assessment: No Falls in past year Last assessed Fall Risk: 04/25/25 Dental Screening Dental Screen Date: 02/08/25 [facility] 04/22 [facility] Details Patient is a 70-year-old female here today for an ER follow-up visit. She was seen at the [place] ER for acute worsening abdominal pain. She was noted to have an elevated white blood cell count of 12. CT scan of abdomen and pelvis did show evidence of diverticulitis. She was treated with Rocephin and Flagyl in the emergency room. She was given Bactrim and Flagyl on an outpatient basis. Currently she reports feeling somewhat tired and a bit dizzy. She admits not drinking enough fluids as she feels a bit nauseous. PLAN: Will supply with higher dose of antiemetic, few days of prednisone for bowel inflammation and will repeat labs PFSH Medical History Epigastric pain Allergies Low back pain Asthma-COPD overlap syndrome Tubular adenoma Diverticulosis of colon Tubular adenoma COPD (chronic obstructive pulmonary disease) Acute anxiety Allergic rhinitis Hypothyroid Asthma Asthma dependent on inhaled steroids Depression Anxiety Irritable bowel Acid reflux Diverticulosis large intestine w/o perforation or abscess w/o bleeding Surgical History H/O esophagogastroduodenoscopy (~12/2018) History of colonoscopy with polypectomy (~12/2018) History of mandibular surgery Hx of cholecystectomy Hx of tubal ligation Family History Maternal Aunt Pancreatic cancer Maternal Grandmother Diabetes Stroke Maternal Grandfather Diabetes Mother COPD (chronic obstructive pulmonary disease) Father Respiratory failure Social History Household Members: Spouse Household Members Other:: Lives with an 11-year-old granddaughter Housing: House Are you a primary healthcare administrative assistant to a significant other at home: No Do you presently have visiting nurse or other home services: No Alcohol intake: never Patient Tobacco Use Status: Never used Tobacco e-Cigarette/Vaping Use: Never Used Second Hand Smoke Exposure: No service: No Current occupational status: retired Current occupation: left hand dominant Cognitive needs: No Hearing needs: No Vision needs: Yes (glasses) Questionnaire PHQ-9 Over the last 2 weeks, how often have you been bothered by any of the following problems? 1. Little interest or pleasure in doing things: not at all 2. Feeling down, depressed, or hopeless: not at all 3. Trouble falling or staying asleep, or sleeping too much: not at all Source: Developed by Drs. Jacob Velasquez, Maribel Du, Pablito Rajan and colleagues, with an educational adrian from [employer]. Thrive Questionnaire Date Thrive assessed: 02/08/25 LIAM-7 AMB Questionnaire LIAM-7 Date LIAM - 7 assessed: 02/08/25 Source: Developed by Drs. Jacob Velasquez, Maribel Du, Pablito Rajan and colleagues, with an educational adrian from [employer]. Review of Systems Const Denies headache(s) Eyes Denies loss of vision ENT Denies vertigo, Reports dizziness, Denies headache(s) and Denies sore throat Card Denies chest pain, Denies leg edema and Denies lightheadedness Resp Denies cough, Denies hemoptysis and Denies wheezing GI Denies abdominal pain, Denies melena, Denies constipation, Denies diarrhea, Reports nausea and Denies vomiting Denies urinary frequency, Denies dysuria and Denies urinary urgency Musc Denies arthralgias, Denies joint swelling, Denies numbness and Denies tingling Neuro Denies Abnormal speech present, Denies behavioral changes, Denies vertigo, Reports dizziness, Denies headache(s), Denies loss of vision, Denies memory loss, Denies numbness and Denies tingling Psych Denies anxiety, Denies behavioral changes, Denies depression, Denies memory loss and Denies panic attacks Pb/Lymph Denies easy bleeding and Denies easy bruising Aller/Immun Denies wheezing Physical exam (Primary Care) Vital Signs: Last Vital Signs Pulse 80 04/25/25 10:06 BP 100/62 04/25/25 10:06 Pulse Ox 94 04/25/25 10:06 Oxygen Delivery Method Room Air 04/25/25 10:06 BMI result Body Mass Index 30.8 Tobacco/Smoking Status: Tobacco use Status Tobacco use date assessed 02/08/25 04/25/25 10:10 Patient Tobacco Use Status Never used Tobacco 04/25/25 10:10 e-Cigarette/Vaping Use Never Used 04/25/25 10:10 Thrive Assessment: Date of Thrive Assessment Date Thrive assessed 02/08/25 04/25/25 10:10 Const General: healthy appearing, no acute distress, alert and awake Nutritional Appearance: well nourished Orientation/consciousness: oriented to person, oriented to place and oriented to time HENMT Ears: TM's normal bilaterally General nose exam: Normal nasal mucous membranes and turbinates present Eyes Conjunctivae: conjunctivae normal Sclerae: sclerae normal Pupils: Equal, round and reactive pupils present Neck Neck: Yes no lymphadenopathy and Yes no JVD Thyroid: Thyroid normal Carotids: no bruits Resp Effort & Inspection: normal respiratory effort and not tachypneic Auscultation: no crackles, no rales, no rhonchi and no wheezes Cardio Rate: regular rate Rhythm: regular rhythm Heart sounds: no murmurs and normal S1 and S2 GI Palpation (GI): Soft to palpation, nontender, no hepatomegaly and no splenomegaly Auscultation: normal bowel sounds Skin General skin exam: no rashes or lesions noted and dry skin Neuro General: oriented to person, oriented to place and oriented to time Cranial nerves: Yes Equal, round and reactive pupils present Speech: No Abnormal speech present Gait exam (Neuro): Normal gait present Motor exam (neuro): no tremor noted Extrem Right upper extremity: full ROM Left upper extremity: full ROM Right lower extremity: full ROM; no edema Left lower extremity: full ROM; no edema Psych Mental Status: mental status grossly normal Speech and movement: Normal speech and movement present Affect: normal affect Attitude: cooperative Thought process: Normal thought process present Coding Level of Care Code Est Pt Level 3 (39515) Diagnoses Diverticulitis K57.92 Assessment & Plan Assessment & Plan (1) Diverticulitis: Comment: 66-year-old female recent MRI @ [facility]- diverticulitis (previous episode 12/2020-and many years ago) Any Increased abdominal pain, fever rectal bleeding etc-return to ED Will follow-up couple weeks -encouraged to call questions or concerns EGD colonoscopy12/2018-Dr. Lebron-diverticulosis throughout the colon, and tubular adenoma. Code(s): K57.92 - Diverticulitis of intestine, part unspecified, without perforation or abscess without bleeding Category: Medical Plan: The patient will continue antibiotics for 10 days to treat the diverticulitis, despite potential side effects such as dizziness and fatigue. A follow-up lab test will be conducted to monitor white blood cell count and assess the resolution of the infection. Prednisone will be prescribed to help with inflammation and may also improve energy levels and appetite. Orders: Orders Complete Blood Count Auto Diff Today K57.92 - Diverticulitis of intestine, part unspecified, without perforation or abscess without bleeding Comprehensive Met. Panel Today K57.92 - Diverticulitis of intestine, part unspecified, without perforation or abscess without bleeding Medications: New prednisone 20 mg PO DAILY 5 tabs 0RF 5 days K57.92 - Diverticulitis of intest ine, part unspecified, without perforation or abscess without bleeding ondansetron 8 mg PO Q12H 14 tabs 0RF 7 days K57.92 - Diverticulitis of intestine, part unspecified, without perforation or abscess without bleeding
--- OUTSIDE RECORDS SUMMARY | 2025-04-25 11:24 | XMS_ITS | Encounter Summary ---
Author Organization [employer] Address [address] [facility] 7t [place] [address] Care Team Providers Care Roller Printer Name Role Phone Sosa Clement MD Primary Care Provider [phone] Encounter Details Date Type Department Care Team (Late st Contact Info) Description 04/21/2023 Abstract [facility] [address] [place] [address] Sosa Clement MD [address] [place] [address] Social History Tobacco Use Types Packs/Day Years [...] documented as of this encounter Care Teams Roller Printer Relationship Specialty Start Date End Date Sosa Clement MD [address] [place] [id number] PCP - General Family Medicine 11/01/18 documented as of this encounter
== END 2025-04-25 10:29 | disposition home or self-care (01) ==
LOC: HO.HMCH 09:57
PROVIDERS: PCP Physician Assistant; Visit Provider Physician Assistant
DX: K57.92 Diverticulitis of intestine, part unspecified, without perforation or abscess without bleeding (principal)

== ENCOUNTER 2025-04-25 09:57 | Outpatient (REF) | payer MEDICARE, MEDICAID, SELFPAY ==
[2025-04-25 10:37] LABS: MANUAL DIFF FLAG NO
[2025-04-25 11:23] LABS: Basophils Absolute Auto 0.1 X10*3/uL (0.0-0.2); Basophils Percent Auto 0.6 % (0-2); Eosinophils Absolute Auto 0.3 X10*3/uL (0.0-0.4); Eosinophils Percent Auto 2.6 % (0-4); Hematocrit 38.2 % (37.0-47.0); Hemoglobin 12.3 g/dl (12.0-16.0); Imm Gran Abs Auto 0.04 X10*3/uL (0.00-0.03); Imm Gran Pct Auto 0.4 % (0.0-0.4); Lymphocytes Percent Auto 20.6 % (20-40); Mean Corpuscular HGB Conc 32.2 g/dl (31.0-35.0); Mean Corpuscular Hemoglobin 28.2 pg (27.0-33.0); Mean Corpuscular Volume 87.6 fL (80.0-98.0); Monocytes Absolute Auto 0.7 X10*3/uL (0.1-1.2); Monocytes Percent Auto 7.3 % (2-11); Neutrophils Absolute Auto 6.6 x10*3/uL (2.0-8.3); Neutrophils Percent Auto 68.5 % (45-73); Platelet Count 259 X10*3/uL (160-400); Red Blood Count 4.36 X10*6/uL (4.20-5.50); Red Cell Distribution Width 13.1 % (11.0-16.0); White Blood Count 9.7 X10*3/uL (4.8-10.8)
[2025-04-25 12:07] LABS: Alanine Aminotransferase 11 U/L (0-31); Alkaline Phosphatase 162 U/L (39-117); Anion Gap 12 (12-20); Aspartate Amino Transferase 16 U/L (5-31); Bilirubin Total 0.4 mg/dL (0.0-1.0); Blood Urea Nitrogen 13 mg/dL (9-16); Calcium 9.1 mg/dL (8.4-10.2); Carbon Dioxide 24 mmol/L (22-29); Chloride 108 mmol/L (96-108); Estimated Glomerular Filt Rate 35; Glucose Random 98 mg/dL (60-115); Potassium 4.1 mmol/L (3.3-5.1); Sodium 140 mmol/L (135-145); Total Protein 7.1 g/dL (6.5-8.0)
== END 2025-04-25 09:58 | disposition home or self-care (01) ==
LOC: HO.LAB 09:57
PROVIDERS: PCP Physician Assistant; Visit Provider Physician Assistant
DX: K57.92 Diverticulitis of intestine, part unspecified, without perforation or abscess without bleeding (principal)
CPT/HCPCS: 36415; 80053; 85025; 85027; 99212

== ENCOUNTER 2025-06-19 10:32 | Outpatient (AMB) | payer OTHER, SELFPAY ==
--- NOTE | 2025-06-19 10:42 | A.OFFPC_ITS ---
Vital Signs 06/19/25 10:44 Height 5 ft 4 in Weight 178 lb 8 oz BMI 30.6 BP 118/62 Blood Pressure Location Lt brachial Pulse 88 Pulse Source Pulse Oximeter Pulse Oximetry (%) 97 Oxygen Delivery Method Room Air Intake Visit Reasons: Derm referral, asthma flare up Siderographist Required: No Accompanied by: Self / Same As Patient Allergies amoxicillin (AMOXICILLIN) Allergy (Intermediate, Verified 06/19/25 10:55) RASH Penicillins (PENICILLINS) Allergy (Intermediate, Verified 06/19/25 10:55) RASH animal dander Allergy (Mild, Verified 06/19/25 10:55) SHORTNESS OF BREATH ciprofloxacin (From Cipro) Allergy (Mild, Verified 06/19/25 10:55) RASH vancomycin (Vancomycin) Allergy (Mild, Verified 06/19/25 10:55) SHORTNESS OF BREATH Medication List - Last Reconciled 06/19/25 by Sera Delgado PA-C acetaminophen ER 650 mg PO Q8H PRN albuterol sulfate 90 mcg/actuation 2 puffs inhalation Q4-6H PRN budesonide 0.5 mg (2 mL) inhalation DAILY 30 days calcium carbonate-vitamin D3 600 mg-10 mcg (400 unit) (Calcium 600 + D(3)) 1 tab PO BID cetirizine (Zyrtec) 10 mg PO DAILY 30 days cholecalciferol (vitamin D3) 50 mcg PO BID famotidine (Pepcid) 40 mg PO BEDTIME 30 days euksvzfnqnj-xaahloyly-goeuulji 200-62.5-25 mcg (Trelegy Ellipta) 1 inh inhalation DAILY 30 days hydrocortisone 2.5% (Procto-Med HC) 1 appl CO BID-QID PRN ipratropium-albuterol 0.5 mg-3 mg(2.5 mg base)/3 mL 3 mL inhalation BID 30 days levothyroxine 100 mcg PO DAILY meloxicam 15 mg PO DAILY PRN 30 days montelukast (Singulair) 10 mg PO BEDTIME 30 days nebulizers As directed ondansetron 4 mg PO DAILY PRN 5 days ondansetron 4 mg PO Q8H PRN ondansetron 8 mg PO Q12H 7 days oxymetazoline 0.05% (Afrin (oxymetazoline)) 2 sprays intranasal Q12H PRN 5 days pantoprazole 40 mg PO DAILY sucralfate 5 mL PO QID sulfamethoxazole-trimethoprim 800-160 mg (Bactrim DS) 1 tab PO BID topiramate 25 mg PO DAILY Tobacco use date assessed: 06/19/25 Fall risk assessment: 2 + Falls in past year Last assessed Fall Risk: 06/19/25 Dental Screening Dental Screen Date: 06/19/25 Did you have a dental visit in the last 12 months?: Yes Did you have a dental problem in the last 6 months where you did not have access to dental care?: No Was dental information given to patient?: Patient has dentist HPI Derm referral, asthma flare up HPI Details 70-year-old female with past medical his tory of GERD, IBS, anxiety, depression, COPD last seen 04/2025 by PA coming in for acute problem. The patient has experienced a rash for several years, which has worsened recently, especially noticeable after bathing and at night. The rash is red and itchy, and the patient has tried various soaps and lotions without relief. She typically will not wake up with a rash she will have itching at nighttime after a shower that will last until bedtime. The patient has a history of allergies to various substances, including foods and animals, and has previously received allergy injections. [facility] Medical History Epigastric pain Allergies Low back pain Asthma-COPD overlap syndrome Tubular adenoma Diverticulosis of colon Tubular adenoma COPD (chronic obstructive pulmonary disease) Acute anxiety Allergic rhinitis Hypothyroid Asthma Asthma dependent on inhaled steroids Depression Anxiety Irritable bowel Acid reflux Diverticulosis large intestine w/o perforation or abscess w/o bleeding Surgical History H/O esophagogastroduodenoscopy (~12/2018) History of colonoscopy with polypectomy (~12/2018) History of mandibular surgery Hx of cholecystectomy Hx of tubal ligation Family History Maternal Aunt Pancreatic cancer Maternal Grandmother Diabetes Stroke Maternal Grandfather Diabetes Mother COPD (chronic obstructive pulmonary disease) Father Respiratory failure Social History Household Members: Spouse Household Members Other:: Lives with an 11-year-old granddaughter Housing: House Are you a primary clinical care leader to a significant other at home: No Do you presently have visiting nurse or other home services: No Alcohol intake: never Patient Tobacco Use Status: Never used Tobacco e-Cigarette/Vaping Use: Never Used Second Hand Smoke Exposure: No service: No Current occupational status: retired Current occupation: left hand dominant Cognitive needs: No Hearing needs: No Vision needs: Yes (glasses) Questionnaire PHQ-9 Over the last 2 weeks, how often have you been bothered by any of the following problems? 4. Feeling tired or having little energy: several days 5. Poor appetite or overeating: several days 6. Feeling bad about yourself - or that you are a failure or have let yourself or your family down: more than half the days 7. Trouble concentrating on things, such as reading the newspaper or watching television: more than half the days 8. Moving or speaking so slowly that other people could have noticed. Or the opposite - being so fidgety or restless that you have been moving around a lot more than usual: more than half the days 9. Thoughts that you would be better off or of hurting yourself in some way: not at all [address]8614 - PHQ-9 Billing: Yes Source: Developed by Drs. Jacob Velasquez, Maribel Du, Pablito Rajan and colleagues, with an educational adrian from [employer]. Thrive Questionnaire Date Thrive assessed: 06/19/25 I am a: Patient What is your living situation today?: I have a steady place to live Within the past 12 months, did the food you bought not last and you didn't have the money to get more?: I choose not to answer this question Within the past 12 months, did you worry whether your food would run out before you got money to buy more?: Often true Do you have trouble paying for medicines?: No Do you have trouble getting transportation to medical appointments?: No Do you have trouble paying your heating and electricity bill?: No Do you have trouble taking care of your child, family member or friend?: No Do you have trouble with day-to-day activities such as bathing, preparing meals, shopping, managing finances, etc.?: Yes Are you currently unemployed and looking for a job?: No Are you interested in more education?: No Please select the resources that you would like help with: Care for elder or disabled Currently or been in a relationship where the following occur: No concerns reported THRIVE Score: 1 AUDIT C Alcohol Use Questionnaire (AUDIT-C) 1. How often do you have a drink containing alcohol?: Never Total Score: 0 LIAM-7 AMB Questionnaire LIAM-7 Date LIAM - 7 assessed: 06/19/25 Feeling nervous, anxious, or on edge: 2 = More than half the days Not being able to stop or control worryin = More than half the days Worrying too much about different things: 2 = More than half the days Trouble relaxin = Several days Being so restless that it is hard to sit still: 1 = Several days Becoming easily annoyed or irritable: 2 = More than half the days Feeling afraid as if something awful might happen: 0 = Not at all Total LIAM-7 score (0-4 normal; 5-9 mild; 10-14 moderate; 15-21 severe): 10 Source: Developed by Drs. Jacob Velasquez, Maribel Du, Pablito Rajan and colleagues, with an educational adrian from [employer]. LIAM-7 Assessment Billing LIAM-7 Assessment Tool: LIAM-7 Assessment 62336 Review of Systems Const Denies body aches, Denies chills, Denies fever(s) and Denies poor appetite Eyes Reports no additional complaints Card Denies chest pain, Denies lightheadedness and Denies dyspnea Resp Denies dyspnea GI Denies nausea and Denies vomiting Reports no additional complaints Musc Reports no additional complaints and Denies abnormal gait Skin/Breast Reports system reviewed and no additional complaints, except as documented Neuro Denies abnormal gait Psych Reports no additional complaints Physical exam (Primary Care) Vital Signs: Last Vital Signs Pulse 88 06/19/25 10:44 BP 118/62 06/19/25 10:44 Pulse Ox 97 06/19/25 10:44 Oxygen Delivery Method Room Air 06/19/25 10:44 BMI result Body Mass Index 30.6 Tobacco/Smoking Status: Tobacco use Status Tobacco use date assessed 06/19/25 06/19/25 10:52 Patient Tobacco Use Status Never used Tobacco 06/19/25 10:52 e-Cigarette/Vaping Use Never Used 06/19/25 10:52 Thrive Assessment: Date of Thrive Assessment Date Thrive assessed 06/19/25 06/19/25 10:52 Currently or been in a relationship where the following occur: No concerns reported Const General: cooperative, healthy appearing, comfortable and no acute distress Orientation/consciousness: patient oriented x3 HENMT Head: Yes normocephalic Ears: hearing grossly normal bilaterally General nose exam: Normal external nose present Eyes General: appearance normal, both eyes and all related structures Conjunctivae: conjunctivae normal Neck Neck: Yes full ROM and Yes no lymphadenopathy Resp Effort & Inspection: normal respiratory effort Auscultation: clear to auscultation bilaterally, no crackles, no rales, no rhonchi and no wheezes Cardio Rate: regular rate Rhythm: regular rhythm Skin Other: No rash on exam General skin exam: no rashes or lesions noted Neuro General: patient oriented x3 Gait exam (Neuro): Normal gait present Extrem General: Yes normal to inspection, Yes full ROM and No edema Psych Affect: normal affect Attitude: cooperative Insight: Good insight present (Psych) Judgement: Good judgement present (Psych) Coding Level of Care Code Est Pt Level 3 (99705) Diagnoses Allergy, initial encounter T78.40XA Encounter type: initial encounter Severe persistent asthma without complication J45.50 Asthma complication type: uncomplicated Asthma persistence: persistent Asthma severity: severe Dermatitis L30.9 Additional Codes LIAM-7 Assessment Billing - LIAM-7 Assessment Tool: LIAM-7 Assessment 23597 ([id number]) PHQ-9 - 28340 - PHQ-9 Billing: Yes ([id number]) Assessment & Plan Assessment & Plan (1) Allergies: Code(s): T78.40XA - Allergy, unspecified, initial encounter Category: Medical Qualifiers: Encounter type: initial encounter Qualified Code(s): T78.40XA - Allergy, unspecified, initial encounter Plan: She has seen an nurse specialist in the past and likely has multiple allergies to topical creams and lotions. Referral was placed to dermatology at patient request. (2) Asthma: Code(s): J45.909 - Unspecified asthma, uncomplicated Category: Medical Qualifiers: Asthma complication type: uncomplicated Asthma persistence: persistent Asthma severity: severe Qualified Code(s): J45.50 - Severe persistent asthma, uncomplicated Plan: Asthma currently controlled on present medications. Avoid triggers such as allergies. (3) Dermatitis: Code(s): L30.9 - Dermatitis, unspecified Category: Medical Plan: Patient does not currently have a rash but looking at images of the rash on her phone likely a contact dermatitis. I advised her to avoid scented soaps and lotions and to switch to unscented bath soap lotion. I did also advise her to avoid sent it detergents and dryer sheets. Given the nature of the rash as it is primarily after the shower likely related to some topical substance irritated her skin. Discussed the above recommendations and plan to send hydroxyzine to be used as needed for itching at nighttime. Referral was also placed to dermatology at patient request Plan The patient was advised to switch to unscented soaps and lotions to manage the rash, which appears to be exacerbated by scented products. A referral to dermatology was made for further evaluation of the rash. Hydroxyzine was prescribed for nighttime use to alleviate itching, with instructions to use it as needed. This note was constructed using voice recognition software. While every effort has been made to ensure accuracy and cephalometric analyst, still areas may have been included sometimes these areas may affect the content or meeting of the given symptoms. Total time spent caring for the patient today was 20 minutes. This includes time spent before the visit reviewing the chart, time spent during the visit, and time spent after the visit and documentation. Patient was informed and verbally consented to the use of an ambient scribe for clinic note documentation during this visit. Orders: Referrals Dermatology Referral L30.9 - Dermatitis, unspecified Medications: New hydroxyzine HCl 10 mg PO BEDTIME 30 tabs 0RF Discontinued ondansetron Discontinued Reason: Patient no longer taking 4 mg PO DAILY 5 days PRN 10 tabs 0RF nausea and vomiting ondansetron Discontinued Reason: Patient no longer taking 4 mg PO Q8H PRN 10 tabs 0RF nausea and vomiting cetirizine (Zyrtec) Discontinued Reason: Patient no longer taking 10 mg PO DAILY 30 days 30 tabs 0RF ondansetron Discontinued Reason: Patient no longer taking 8 mg PO Q12H 7 days 14 tabs 0RF K57.92 - Diverticulitis of intestine, part unspecified, without perforation or abscess without bleeding
[2025-06-19 10:44] VITALS: BP 118/62; PULSE 88; O2SAT 97; BMI 30.6
--- OUTSIDE RECORDS SUMMARY | 2025-06-19 11:59 | XMS_ITS | Clinical Summary ---
Author Organization [facility] Address [address] [place] [phone] Phone Care Team Providers Care Icing Coater Name Role Phone Fahad Gutierrez MD Primary Care Provider [phone] Medications ciclopirox (LOPROX) 0.77 % gel Apply topically 2 (two) times a day. 45 g 07/17/20 25 Active Encounters Date Type Department Care Team Description 04/18/2025 2:00 PM EDT Consult Orth[facility] - [place] [address] [place] [phone] Alex Hernandez, DPM Dermatophytosis of nail [...] 2:00 PM EDT Consult [facility] - [place] [address] [phone] Alex Hernandez, TOOTIE [address] [address] Health Maintenance Due Date Last Done Comments [...] - [place] [employer] MED[place] Care Teams Icing Coater Relationship Specialty Start Date End Date Fahad Gutierrez MD [facility] [address] [place] [address] [address] [place] [address] PCP - General Internal Medicine 02/09/25
--- OUTSIDE RECORDS SUMMARY | 2025-06-19 11:59 | XMS_ITS | Encounter Summary ---
Author Organization [employer] Address [address] [facility] 7[address] [place] [address] Care Team Providers Care General Store Manager Name Role Phone Sosa Clement MD Primary Care Provider [phone] Encounter Details Date Type Department Care Team (Late st Contact Info) Description 04/21/2023 Abstract [facility] [address] [place] [address] Sosa Clement MD [address] [place] [address] Social History Tobacco Use Types Packs/Day Years [...] documented as of this encounter Care Teams General Store Manager Relationship Specialty Start Date End Date Sosa Clement MD [address] [place] [phone] PCP - General Family Medicine 11/01/18 documented as of this encounter
== END 2025-06-19 11:23 | disposition home or self-care (01) ==
LOC: HO.HMCH 10:33
PROVIDERS: PCP Physician Assistant
DX: T78.40XA Allergy, unspecified, initial encounter (principal); J45.50 Severe persistent asthma, uncomplicated; L30.9 Dermatitis, unspecified

== ENCOUNTER → 2025-06-19 10:32 | Outpatient (BNVA) | payer OTHER, SELFPAY | PROVIDERS: PCP Physician Assistant | DX: K21.9 Gastro-esophageal reflux disease without esophagitis (principal); K58.9 Irritable bowel syndrome, unspecified; F41.9 Anxiety disorder, unspecified; F32.A Depression, unspecified; J44.9 Chronic obstructive pulmonary disease, unspecified; J45.50 Severe persistent asthma, uncomplicated; R21 Rash and other nonspecific skin eruption; L30.9 Dermatitis, unspecified; Z91.09 Other allergy status, other than to drugs and biological substances | CPT/HCPCS: 96127; 99212 ==

== ENCOUNTER 2025-07-24 06:43 | Day surgery (SDC) | payer OTHER, SELFPAY ==
--- OUTSIDE RECORDS SUMMARY | 2025-06-18 12:08 | XMS_ITS | Encounter Summary ---
Author Organization [facility] Address [address] [facility] [place] [address] Care Team Providers Care Sales Service Rep Name Role Phone Sosa Clement Primary Care Provider Unavailab le Encounter Details Date Type Department Care Team Description 09/15/2017 Release of Information Medical Records [address] [place] [id number] Abstract, Provider Social History Tobacco Use Types Packs/Day Years Used Date Smoking Tobacco: Never Smokeless Tobacco: Never Sex Assigned at Date Recorded Not on file documented as of this encounter Plan of Treatment Not on file documented as of this encounter Visit Diagnoses Not on filedocumented in this encounter Care Teams Sales Service Rep Relationship Specialty Start Date End Date Sosa Clement PCP - General Family Practice 07/26/14 documented as of this encounter
--- OUTSIDE RECORDS SUMMARY | 2025-06-18 12:08 | XMS_ITS ---
Author Name [facility] Organization Unknown Encounters Encounter Type Encounter Reason Primary Diagnosis Location Date Ambulatory [facility] 03/18/2025 Ambulatory [facility] 02/12/2025 Ambulatory [facility] 12/29/2024 Ambulatory [facility] 11/23/2024 Ambulatory [facility] 11/22/2024 Ambulatory [facility] 11/21/2024 Ambulatory [facility] 11/13/2024 Ambulatory [facility] 11/13/2024
--- OUTSIDE RECORDS SUMMARY | 2025-06-18 12:08 | XMS_ITS | Clinical Summary ---
Author Organization [facility] Address [address] [place] [phone] Phone Care Team Providers Care Plating And Point Assembly Supervisor Name Role Phone Fahad Gutierrez MD Primary Care Provider [phone] Medications ciclopirox (LOPROX) 0.77 % gel Apply topically 2 (two) times a day. 45 g 07/17/20 25 Active Encounters Date Type Department Care Team Description 04/18/2025 2:00 PM EDT [facility] [place] [address] [place] [phone] Alex Hernandez, DPM Dermatophytosis of nail (Primary Dx); Pain in toe of right foot; Pain in toe of left foot; Ingrowing nail; Candidiasis of skin and nails from Last 3 Months Surgical History Surgery Date Site/Laterality Comments TUBAL LIGATION PROCEDURE: HISTORICAL TUBAL LIGATION BREAST LUMPECTOMY PROCEDURE: HISTORICAL BREAST LUMPECTOMY Medical History Medical History Date Comments Anxiety 09/01/2017 DX:Anxiety History of breast cancer 04/29/2018 DX:Hist ory of breast cancer; COMMENT: S/p lumpectomy, RT, chemo Social History Tobacco Use Types Packs/Day Years Used Date Smoking Tobacco: Never Smokeless Tobacco: Never Comments Unknown Sex and Gender Information Value Date Recorded Sex Assigned at Not on file Legal Sex Female 3:49 PM EST Gender Identity Not on file Sexual Orientation Not on file Obstetrics History Last Filed Vital Signs Vital Sign Reading Time Taken Comments Blood Pressure 137/82 09/08/2022 1:34 PM EST Pulse 74 09/08/2022 1:34 PM EST Temperature - - Respiratory Rate - - Oxygen Saturation - - Inhaled Oxygen Concentration - - Weight 86.6 kg (191 lb) 09/08/2022 1:34 PM EST Height 165.1 cm (5' 5 ) 09/08/2022 1:34 PM EST Body Mass Index 31.78 09/08/2022 1:34 PM EST Plan of Treatment Upcoming Encounters Date Type Department Care Team (Late st Contact Info) Description 07/19/2025 2:00 PM EDT Consult Orthopedic Surgery - [place] [address] [phone] Alex Hernandez, TOOTIE [address] [address] Health Maintenance Due Date Last Done Comments RSV Immunization Adult Patients (1 - Risk 60-74 years 1-dose series) 2015 Colorectal Cancer Screening: Colonoscopy 10/11/2022 Falls Risk Assessment 10/11/2022 Hepatitis C Screening 10/11/2022 Medicare Annual Wellness Visit 10/11/2022 Osteoporosis Screening (Bone Density Screening) 10/11/2022 Social Influencers of Health Screening 10/11/2022 COVID-19 Vaccine ( season) 2024 10/30/2022, 10/13/2021, 01/14/2021, Additional history exists Depression Screening 11/01/2024 Breast Cancer Screening 12/15/2024 12/15/2022 Influenza Vaccine (#1) 2025 , 11/06/2023, 07/20/2021, Additional history exists DTaP,Tdap,and Td Vaccines (2 - Td or Tdap) 12/03/2025 [...] on patient's age to complete this topic MMR Vaccines Aged Out No longer eligi ble based on patient's age to complete this topic Meningococcal ACWY Vaccine Aged Out N o longer eligible based on patient's age to complete this topic Meningococcal B Vaccine Aged Out No l onger eligible based on patient's age to complete this topic RSV Immunization Patients Under 20 months Aged Out No longer eligible based on patient's age to complete this topic Varicella Vaccines Aged Out No longer eligible based on patient's age to complete this topic Insurance MEDICAID - [place] [employer] MEDICARE Care Teams Plating And Point Assembly Supervisor Relationship Specialty Start Date End Date Fahad Gutierrez MD [facility] [address] [place] [address] [address] [place] [address] PCP - General Internal Medicine 02/09/25
--- OUTSIDE RECORDS SUMMARY | 2025-06-18 12:08 | XMS_ITS | Clinical Summary ---
Author Organization [facility] Address [address] [facility] [address] [place] [phone] Phone Care Team Providers Care Electric Range Preparer Name Role Phone Sosa Clement MD Primary Care Provider [phone] Allergies Active Allergy Reactions Criticality Noted Date Comments Ciprofloxacin 06/15/2020 Penicillins 06/15/2020 Vancomycin 07/18/2021 Medications cholecalciferol (VITAMIN D3) 5,000 unit capsule Take 5,000 Units by mouth daily. Active albuterol 2.5 mg /3 mL (0.083 %) nebulizer solution Inhale 1 vial into the lungs every 4 (four) hours as needed. Active citalopram (CELEXA) 20 MG tablet Take 20 mg by mouth daily. Active clonazePAM (KLONOPIN) 0.5 MG tablet Take 0.5 mg by mouth nightly at bedtime as needed. Active levothyroxine (SYNTHROID, LEVOTHROID) 75 MCG tablet Take 100 mcg by mouth daily. Active fluticasone propion-salmeteroL (ADVAIR HFA) 230-21 mcg/actuation inhaler Inhale 2 puffs into the lungs 2 (two) times a day. Active montelukast (SINGULAIR) 10 mg tablet Take 10 mg by mouth nightly at bedtime. Active pantoprazole (PROTONIX) 40 MG tablet Take 40 mg by mouth daily. Active cefuroxime (CEFTIN) 500 MG tablet Take 1 tablet (500 mg total) by mouth every 12 (twelve) hours. 5 tablet 1 Active Saccharomyces boulardii (FLORASTOR) 250 mg capsule Take 1 capsule (250 mg total) by mouth 2 (two) times a day. 10 capsule 1 Active ondansetron (ZOFRAN-ODT) 4 MG disintegrating tablet Take 1 tablet (4 mg total) by mouth every 8 (eight) hours as needed. 12 tablet 1 Active ibuprofen (ADVIL,MOTRIN) 800 MG tablet Take 1 tablet (800 mg total) by mouth every 6 (six) hours as needed for pain (specific location in comments). 25 tablet 5 Active tiZANidine (ZANAFLEX) 4 MG tablet Take 1 tablet (4 mg total) by mouth every 6 (six) hours as needed. 20 tablet 5 Active oxyCODONE 5 MG immediate release tablet Take 1 tablet (5 mg total) by mouth every 4 (four) hours as needed. Partial fill ok 10 tablet 5 Active Active Problems Problem Noted Date Diagnosed Date Diverticulitis 07/19/2021 Assessment & Plan (07/19/2021 2:44 AM EDT): With objective improvement by labs and CT but clinically not tolerating home care due to pain and nausea/vomiting. Observation overnight Surgery consult given repeated bouts of diverticular disease Continue ceftriaxone and Flagyl Clear liquid diet If she is able to tolerate a diet and oral pain medication anticipate she may be ready for discharge tomorrow Immunizations Immunization Administration Dates Next Due Influenza High-Dose Quadrivalent Preservative Fr ee IM 07/20/2021 Social History Tobacco Use Types Packs/Day Years Used Date Smoking Tobacco: Never Smokeless Tobacco: Never Alcohol Use Standard Drinks/Week Comments Not Currently 0 (1 standard drink = 0.6 oz pur e alcohol) Education Answer Date Recorded Are you interested in more education? Not on roshan e 02/26/2023 Are you concerned about learning? Not on file 02/26/2023 No 02/26/2023 No 02/26/2023 Digital Access Answer Date Recorded No 03/27/2023 No 03/27/2023 No 03/27/2023 Reliable internet access at home? Not on file 03/27/2023 Device with a working camera? Not on file Intimate Partner Violence Answer Date R ecorded Are you denied basic needs s uch as food, clothing, or medical care? No 11/13/2024 In the past 12 months have y ou been in a relationship with a person who hurts, threatens, or tries to control you? No 11/13/2024 Are you denied basic needs s uch as food, clothing, or medical care? No 11/13/2024 In the past 12 months have y ou been in a relationship with a person who hurts, threatens, or tries to control you? No 11/13/2024 Comments Unknown Sex and Gender Information Value Date Recorded Sex Assigned at Female 06/15/2020 11:47 AM EDT Legal Sex Female 11:37 AM EDT Gender Identity Female 06/15/2020 11:47 AM EDT Sexual Orientation Not on file Last Filed Vital Signs Vital Sign Reading Time Taken Comments Blood Pressure 123/83 11/13/2024 11:34 PM EST Pulse 91 11/13/2024 11:34 PM EST Temperature 36.1 C (97 F) 11/13/2024 11:34 PM EST Respiratory Rate 16 11/13/2024 11:34 PM EST Oxygen Saturation 98% 11/13/2024 11:34 PM EST Inhaled Oxygen Concentration - - Weight 82.6 kg (182 lb) 11/13/2024 6:58 PM EST Height 162.6 cm (5' 4 ) 11/13/2024 6:58 PM EST Body Mass Index 31.24 11/13/2024 6:58 PM EST Plan of Treatment Health Maintenance Due Date Last Done Comments Adult Td,Tdap Booster 1955 LIPID PANEL 1955 TSH LEVEL 1955 DEPRESSION SCREENING 1967 HEPATITIS C SCREENING 1973 COLOGUARD 2000 COLONOSCOPY 2000 COLORECTAL CANCER SCREENING 2000 FIT TEST 2000 FOBT 2000 SIGMOIDOSCOPY 2000 VIRTUAL COLONOSCOPY 2000 PNEUMOCOCCAL VACCINES (50+ years) (1 of 1 - PCV) 2005 OSTEOPOROSIS SCREENING INITIAL (ONE-TIME) 2020 COVID-19 VACCINE (2 - season) 2024 12/17/2020 MAMMOGRAM 12/15/2024 12/15/2022, 12/02, 07/04/2020, Additional history exists RSV VACCINE (1 - 1-dose 75+ series) 2030 ZOSTER VACCINES Completed 05/24/2019, 03/09/2019 SMOKING STATUS SCREENING (Once After 26 Yrs) Completed 07/19/2021 HEPATITIS A VACCINES Aged Out No long er eligible based on patient's age to complete this topic HIB VACCINES Aged Out No longer eligi ble based on patient's age to complete this topic MENINGOCOCCAL VACCINES (ACWY) Aged Out No longer eligible based on patient's age to complete this topic MENINGOCOCCAL VACCINES (B) Aged Out N o longer eligible based on patient's age to complete this topic Medical Devices Not on file Insurance MEDICARE PART A & B [facility] [place] [address] [address] [facility] MEDICARE REPLACEMENT MEDICARE PART A & B [facility] FULL [facility] MEDICARE REPLACEMENT [address] [place] [address] MEDICARE PART A & B [facility] FULL MEDICARE PART A & B [employer] FULL MEDICARE PART A & B [employer] NET FULL [facility] AARP MEDICARE REPLACEMENT MEDICARE PART A & B [place] [facility] FULL MEDICARE PART A & B [employer] NET FULL B [facility] MEDICARE REPLACEMENT MEDICARE PART A & B [facility] NET FULL [facility] MEDICARE REPLACEMENT MEDICARE PART A & B [facility] NET FULL [facility] AAR MEDICARE REPLACEMENT Advance Directives For more information, please contact: [phone] (9AM - 5PM [facility], Wednesday-Wednesday) * Full Code (Latest Code Status on File) Date Activated Date Inactivated Comments 07/19/2021 2:42 AM Question Answer Comments Code Status Confirmed With: Patient Care Teams Electric Range Preparer Relationship Specialty Start Date End Date Sosa Clement MD [address] [place] [id number] PCP - General Pediatrics 06/15/20 Additional Source Comments The information contained in this document represents components of the legal health record. It is not the complete legal health record.[facility]
--- OUTSIDE RECORDS SUMMARY | 2025-06-18 12:08 | XMS_ITS | Encounter Summary ---
Author Organization [employer] Address [address] [facility] 7t [place] [address] Care Team Providers Care Customer Solutions Specialist Name Role Phone Sosa Clement MD Primary Care Provider [phone] Reason for Visit * Reason Comments Med Refill Encounter Details Date Type Department Care Team ([facility] st Contact Info) Description 01/11/2025 Refill [facility] [address] [place], [place] [phone] Sosa Clement MD [address] [place] [address] Chronic obstructive pulmonary disease, unspecified (CMS/HCC) Social [...] documented as of this encounter Care Teams Customer Solutions Specialist Relationship Specialty Start Date End Date Sosa Clement MD [address] [place] [id number] PCP - General Family Medicine 11/01/18 documented as of this encounter
[2025-07-20 12:24] VITALS: BMI 30.9
--- NOTE | 2025-07-23 08:37 | HO.ANESPROP2 ---
Documented by User: Ally Brown NP 07/23/25 08:37 HPI - Anesthesia Eval Consult details Narrative: 70yo F for Colonoscopy PMFSH Active Problems Active Problems: All Active Problems Dermatitis (Acute) Screening for diabetes mellitus (DM) (Acute) Precious onychomycosis (Acute) Osteoarthritis of left knee (Acute) Painful arc syndrome of left shoulder (Acute) Sinusitis (Acute) Allergies (Acute) Over weight (Acute) Chronic diarrhea (Acute) Elevated alkaline phosphatase level (Acute) Polyarthralgia (Acute) Chondromalacia patellae of right knee (Acute) Knee pain (Acute) Diverticulitis (Acute) Ductal carcinoma in situ (DCIS) of left breast (Acute) Asthma (Acute) Anxiety (Acute) Epigastric pain (Acute) Low back pain (Acute) Asthma-COPD overlap syndrome (Acute) Tubular adenoma (Acute) Diverticulosis of colon (Acute) COPD (chronic obstructive pulmonary disease) (Acute) Acute anxiety (Acute) Allergic rhinitis (Acute) Asthma dependent on inhaled steroids (Acute) Depression (Acute) Irritable bowel (Acute) Acid reflux (Acute) Diverticulosis large intestine w/o perforation or abscess w/o bleeding (Acute) Past Medical History Medical History Epigastric pain Low back pain Asthma-COPD overlap syndrome Tubular adenoma Diverticulosis of colon COPD (chronic obstructive pulmonary disease) Acute anxiety Allergic rhinitis Hypothyroid Asthma dependent on inhaled steroids Depression Irritable bowel Acid reflux Diverticulosis large intestine w/o perforation or abscess w/o bleeding Family History Family History Maternal Aunt Pancreatic cancer Maternal Grandmother Diabetes Stroke Maternal Grandfather Diabetes Mother COPD (chronic obstructive pulmonary disease) Father Respiratory failure Family history of problems with anesthesia: No Surgical History Surgical History H/O esophagogastroduodenoscopy (~12/2018) History of colonoscopy with polypectomy (~12/2018) History of mandibular surgery Hx of cholecystectomy Hx of tubal ligation History of Problems with Anesthesia: No Social History Social History Household Members: Spouse Household Members Other:: Lives with an 11-year-old granddaughter Housing: House Are you a primary career center advisor to a significant other at home: No Do you presently have visiting nurse or other home services: No Alcohol intake: never Patient Tobacco Use Status: Never used Tobacco e-Cigarette/Vaping Use: Never Used Second Hand Smoke Exposure: No Use of substances other than those prescribed or required for medical reasons: No Advance Directives: No Advance Directives Information Provided: Yes service: No Current occupational status: retired Current occupation: left hand dominant Cognitive needs: No Hearing needs: No Vision needs: Yes (glasses) Meds Allergies Allergy/AdvReac Type Severity Reaction Status Date / Time amoxicillin (AMOXICILLIN) Allergy Intermediate RASH Verified 06/19/25 10:55 Penicillins (PENICILLINS) Allergy Intermediate RASH Verified 06/19/25 10:55 animal dander Allergy Mild SHORTNESS Verified 06/19/25 10:55 OF BREATH ciprofloxacin (From Cipro) Allergy Mild RASH Verified 06/19/25 10:55 vancomycin (Vancomycin) Allergy Mild SHORTNESS Verified 06/19/25 10:55 OF BREATH Home Medications ?Medication ?Instructions ?Recorded ?Confirmed ?Last Taken ?Type cholecalciferol (vitamin D3) 50 50 mcg PO BID 07/30/20 07/20/25 Unknown History mcg (2,000 unit) capsule acetaminophen 650 mg 650 mg PO Q8H PRN pain 10/07/20 07/20/25 Unknown History tablet,extended release nebulizers 01/03/24 04/25/25 Unknown History topiramate 25 mg tablet 25 mg PO DAILY 10/06/24 07/20/25 Unknown History Exam Height,Weight and Vital Signs: Height 5 ft 4 in Weight 81.556 kg Assessment and Plan Assessment Anesthesia Assessment: Chart Reviewed Final Anesthetic Review Family History of Problems with Anesthesia: No History of Problems with Anesthesia: No Documented by User: Tera Handley MD 07/24/25 08:06 [facility] Past Medical History Medical History Epigastric pain Low back pain Asthma-COPD overlap syndrome Tubular adenoma Diverticulosis of colon COPD (chronic obstructive pulmonary disease) Acute anxiety Allergic rhinitis Hypothyroid Asthma dependent on inhaled steroids Depression Irritable bowel Acid reflux Diverticulosis large intestine w/o perforation or abscess w/o bleeding Cognitive capacity: normal Functional capacity: independent ambulation Family History Family History Maternal Aunt Pancreatic cancer Maternal Grandmother Diabetes Stroke Maternal Grandfather Diabetes Mother COPD (chronic obstructive pulmonary disease) Father Respiratory failure Surgical History Surgical History H/O esophagogastroduodenoscopy (~12/2018) History of colonoscopy with polypectomy (~12/2018) History of mandibular surgery Hx of cholecystectomy Hx of tubal ligation Social History Social History Household Members: Spouse Household Members Other:: Lives with an 11-year-old granddaughter Housing: House Are you a primary career center advisor to a significant other at home: No Do you presently have visiting nurse or other home services: No Alcohol intake: never Patient Tobacco Use Status: Never used Tobacco e-Cigarette/Vaping Use: Never Used Second Hand Smoke Exposure: No Use of substances other than those prescribed or required for medical reasons: No Advance Directives: No Advance Directives Information Provided: Yes service: No Current occupational status: retired Current occupation: left hand dominant Cognitive needs: No Hearing needs: No Vision needs: Yes (glasses) Meds Allergies Allergy/AdvReac Type Severity Reaction Status Date / Time amoxicillin (AMOXICILLIN) Allergy Intermediate RASH Verified 06/19/25 10:55 Penicillins (PENICILLINS) Allergy Intermediate RASH Verified 06/19/25 10:55 animal dander Allergy Mild SHORTNESS Verified 06/19/25 10:55 OF BREATH ciprofloxacin (From Cipro) Allergy Mild RASH Verified 06/19/25 10:55 vancomycin (Vancomycin) Allergy Mild SHORTNESS Verified 06/19/25 10:55 OF BREATH Home Medications ?Medication ?Instructions ?Recorded ?Confirmed ?Last Taken ?Type cholecalciferol (vitamin D3) 50 50 mcg PO BID 07/30/20 07/20/25 Unknown History mcg (2,000 unit) capsule acetaminophen 650 mg 650 mg PO Q8H PRN pain 10/07/20 07/20/25 Unknown History tablet,extended release nebulizers 01/03/24 04/25/25 Unknown History topiramate 25 mg tablet 25 mg PO DAILY 10/06/24 07/20/25 Unknown History Exam Exam Date and Time: 07/23/25 Airway TM Dist: >3cm Denture: Upper Partial: Lower (patials) Heart: rrr Lungs: cta Other: normal Assessment and Plan Assessment Anesthesia Assessment: Anesthesia Plan Discussed Final Anesthetic Review NPO: Yes ASA Class: II Final Preanesthetic Review: No Changes in Pt Med Stat, Meds/Allgs Chart Reviewed, Consent Obtained/Reviewed and Anes Risks/Benef Reviewed Patient Risk: Low Procedure Risk: Low Anesthetic Plan Anesthetic Plan: MAC: Disposition: Standard PACU
[2025-07-24 06:58] VITALS: BMI 30.5
[2025-07-24 07:10] VITALS: BP 138/75; PULSE 71; RESP 14; TEMP 36.6; O2SAT 98
[2025-07-24] MEDS: Lactated Ringers 1,000 ML 100 ML IVCONT (07:11)
--- NOTE | 2025-07-24 08:10 | MHC.SHP ---
Pre-Procedural Eval Section A - 24 Hr Update-Section A only Date of Service: 07/24/25 Section B - Complete if H&P > 30 days Chief Complaint: screening Details of Present Illness: see H&P no changes Relevant Family History (Specify if Yes): No Relevant Social History: None Present Medications: see Short Stay Collaborative assessment Medical History: No relevant PMH History of Previous Operations: No relevant previous surgery Allergies: Allergies Allergy/AdvReac Type Severity Reaction Status Date / Time amoxicillin (AMOXICILLIN) Allergy Intermediate RASH Verified 06/19/25 10:55 Penicillins (PENICILLINS) Allergy Intermediate RASH Verified 06/19/25 10:55 animal dander Allergy Mild SHORTNESS Verified 06/19/25 10:55 OF BREATH ciprofloxacin (From Cipro) Allergy Mild RASH Verified 06/19/25 10:55 vancomycin (Vancomycin) Allergy Mild SHORTNESS Verified 06/19/25 10:55 OF BREATH Review of Systems Sugical H&P ROS: Negative: Constitution, Cardiovascular, Respiratory, Neurological, Psychiatric, Hem-Onc, Allergic/Immunologic, Gastrointestinal, Genitourinary, Musculoskeletal, Integumentary, Endocrine and Eyes/Ears/Nose/Throat Exam Surgical H&P Exam: Normal: HEENT, Normal: Heart, Normal: Lungs, Normal: Extremities, Normal: Abdomen, Normal: Skin and Normal: Neurological Plan Diagnosis/Plan: Unchanged I have reviewed the history and physical and performed a pertinent physical examination on my patient. No changes have occurred unless specified. Time Spent With Patient Time: Total time managing care of this patient today ____ minutes.
[2025-07-24 08:57] VITALS: BP 105/60; PULSE 68; RESP 16; TEMP 36.2; O2SAT 95
[2025-07-24 09:12] VITALS: BP 141/57; PULSE 69; RESP 16; TEMP 36.3; O2SAT 100
--- NOTE | 2025-07-24 10:32 | OP_ITS ---
DATE OF SERVICE: 07/24/2025 SURGEON: Delmar Zhang MD INDICATIONS: Colon cancer screening and prior history of adenomatous colon polyps. PREOPERATIVE DIAGNOSIS: POSTOPERATIVE DIAGNOSIS: PROCEDURE PERFORMED: Colonoscopy to the terminal ileum. ESTIMATED BLOOD LOSS: COMPLICATIONS: ANESTHESIA: Monitored anesthesia care. ASSISTANTS: SPECIMENS: DESCRIPTION OF PROCEDURE: A history and physical was performed. The risks and benefits of the procedure were explained to the patient. Informed consent was obtained. The patient placed in the left lateral decubitus position. A digital rectal exam was performed and was found to be normal. The Olympus pediatric video colonoscope was introduced into the rectum and advanced to the cecum. The cecum was identified by transillumination, palpation, and identification of the ileocecal valve. Examination was performed. The scope was removed. She tolerated the procedure well and was returned to the recovery area in stable condition. FINDINGS: The terminal ileum was examined and appeared normal. Visualized colonic mucosa was normal. The quality of the prep was good. No polyps were identified. Retroflexed examination was normal. There were small internal hemorrhoids. IMPRESSION: Normal colonoscopy. RECOMMENDATION: 1. Follow up as needed. 2. Repeat colonoscopy is recommended in 10 years for average-risk individuals. This is optional based on the patient's age. MD ZAIDA Lake/BRITTL / [phone]
== END 2025-07-24 09:59 | disposition home or self-care (01) ==
PROVIDERS: PCP Physician Assistant; Visit Provider Internal Medicine Gastroenterology
PROC: 0DJD8ZZ Inspection of Lower Intestinal Tract, Via Natural or Artificial Opening Endoscopic (ICD-10-PCS; CPT 45378; principal; 2025-07-24 08:20)
DX: Z12.11 Encounter for screening for malignant neoplasm of colon (principal); Z86.0101 Personal history of adenomatous and serrated colon polyps; K64.8 Other hemorrhoids; K57.30 Diverticulosis of large intestine without perforation or abscess without bleeding; K58.9 Irritable bowel syndrome, unspecified; K21.9 Gastro-esophageal reflux disease without esophagitis; R79.89 Other specified abnormal findings of blood chemistry; J44.9 Chronic obstructive pulmonary disease, unspecified; E03.9 Hypothyroidism, unspecified; F41.8 Other specified anxiety disorders; Z85.3 Personal history of malignant neoplasm of breast; Z92.3 Personal history of irradiation; Z92.29 Personal history of other drug therapy; Z79.899 Other long term (current) drug therapy; Z98.890 Other specified postprocedural states; Z79.51 Long term (current) use of inhaled steroids; Z88.0 Allergy status to penicillin; Z88.1 Allergy status to other antibiotic agents; Z90.49 Acquired absence of other specified parts of digestive tract
CPT/HCPCS: G0105; J2003; J2704; J3010

== ENCOUNTER 2025-08-03 09:56 | Outpatient (AMB) | payer MEDICARE, MEDICAID, SELFPAY ==
--- NOTE | 2025-08-03 10:10 | A.OFFVIS_ITS ---
Vital Signs 08/03/25 10:15 Height 5 ft 4 in Weight 80 lb BMI 13.7 Intake Visit Reasons: OV- LT knee pain/ last inj 12/25/24 Intake Note: Nicol is a 69 year old left hand dominant female who presents today for a follow of her left knee OA, last injection 12/25/24. Patients states the last injection gave releafe for 4 months. Allergies amoxicillin (AMOXICILLIN) Allergy (Intermediate, Verified 08/03/25 10:16) RASH Penicillins (PENICILLINS) Allergy (Intermediate, Verified 08/03/25 10:16) RASH animal dander Allergy (Mild, Verified 08/03/25 10:16) SHORTNESS OF BREATH ciprofloxacin (From Cipro) Allergy (Mild, Verified 08/03/25 10:16) RASH vancomycin (Vancomycin) Allergy (Mild, Verified 08/03/25 10:16) SHORTNESS OF BREATH HPI HPI OV- LT knee pain/ last inj 12/25/24: Details: Ms. Sexton is a 70-year-old female who presents to the office today for chronic left knee pain due to osteoarthritis. She received a cortisone injection on 12/25/2024 which gave her great relief. She is looking to repeat injection while in the office today. [facility] Medical History Epigastric pain Low back pain Asthma-COPD overlap syndrome Tubular adenoma Diverticulosis of colon COPD (chronic obstructive pulmonary disease) Acute anxiety Allergic rhinitis Hypothyroid Asthma dependent on inhaled steroids Depression Irritable bowel Acid reflux Diverticulosis large intestine w/o perforation or abscess w/o bleeding Surgical History H/O esophagogastroduodenoscopy (~12/2018) History of colonoscopy with polypectomy (~12/2018) History of mandibular surgery Hx of cholecystectomy Hx of tubal ligation Family History Maternal Aunt Pancreatic cancer Maternal Grandmother Diabetes Stroke Maternal Grandfather Diabetes Mother COPD (chronic obstructive pulmonary disease) Father Respiratory failure Social History Household Members: Spouse Household Members Other:: Lives with an 11-year-old granddaughter Housing: House Are you a primary career services director to a significant other at home: No Do you presently have visiting nurse or other home services: No Alcohol intake: never Patient Tobacco Use Status: Never used Tobacco e-Cigarette/Vaping Use: Never Used Second Hand Smoke Exposure: No service: No Current occupational status: retired Current occupation: left hand dominant Cognitive needs: No Hearing needs: No Vision needs: Yes (glasses) Review of Systems Const All systems reviewed & are unremarkable except as noted in HPI and below Physical Exam Vital Signs: BMI result Body Mass Index 13.7 Const General: cooperative, healthy appearing and no acute distress Resp Effort & Inspection: normal respiratory effort and able to speak in complete sentences Extrem Other: Left knee: Normal to inspection. No ecchymosis, erythema, or joint effusion. Slight tenderness to palpation joint line. Range of motion 0-90 degrees. NVI. Psych Appearance: grossly normal Mental Status: mental status grossly normal Attitude: cooperative Assessment & Plan Assessment & Plan (1) Osteoarthritis of left knee: Code(s): M17.12 - Unilateral primary osteoarthritis, left knee Category: Medical Qualifiers: Osteoarthritis type: primary Qualified Code(s): M17.12 - Unilateral primary osteoarthritis, left knee Plan The patient was offered a cortisone injection in the left knee. The patient was explained the risks, benefits, and alternatives to receiving this injection. After receiving consent for the injection, the patient had the procedure done while in the office today. The patient tolerated the procedure well with no complications. Follow-up will be PRN, or sooner if needed Coding Level of Care Code Est Pt Level 3 (52979) Diagnoses Primary osteoarthritis of left knee M17.12 Osteoarthritis type: primary
[2025-08-03 10:15] VITALS: BMI 13.7
--- OUTSIDE RECORDS SUMMARY | 2025-08-03 10:42 | XMS_ITS | Encounter Summary ---
Author Organization [facility] Address [address] [facility] [address] [place] [address] Phone Care Team Providers Care Card Punching Machine Operator Name Role Phone Sosa Clement MD Primary Care Provider [phone] Encounter Details Date Type Department Care Team (Late st Contact Info) Description 07/13/2021 Procedure Pass [facility], Ct Scan - [facility] [address] [place] [address] Social History Tobacco Use Types Packs/Day Years [...] AM EDT Sexual Orientation Not on file documented as of this encounter Functional Status * Calculated C-SSRS Risk Score (Lifetime/Recent) Answer Date of Assessment Author No Risk Indicated 07/13/2021 8:07 PM EDT Stefany Correa RN * [place] Suicide Severity Rating Scale (Screener/Recent Self-Report) Question Answer Date of Assessment Author 1. Wish to be (Past 1 Month) No 021 8:07 PM EDT Stefany Correa, RN 2. Non-Specific Active Suici naomi Thoughts (Past 1 Month) No 07/13/2021 8:07 PM EDT Brendan Correa RN 6. Suicidal Behavior (Lifetime) No 8:07 PM EDT Stefany Correa RN documented as of this encounter Plan of Treatment Not on file documented as of this encounter Visit Diagnoses Not on filedocumented in this encounter Care Teams Card Punching Machine Operator Relationship Specialty Start Date End Date Sosa Clement MD [address] [place] [address] PCP - General Pediatrics 06/15/20 documented as of this encounter Additional Source Comments The information contained in this document represents components of the legal health record. It is not the complete legal health record.[facility]
--- OUTSIDE RECORDS SUMMARY | 2025-08-03 10:42 | XMS_ITS | Clinical Summary ---
Author Organization [facility] Address [address] [place] [phone] Phone Care Team Providers Care Optical Coating Technician Name Role Phone Fahad Gutierrez MD Primary Care Provider [phone] Medications ciclopirox (LOPROX) 0.77 % gel Apply topically 2 (two) times a day. 45 g 5 07/17/20 25 Surgical History Surgery Date Site/Laterality Comments TUBAL [...] 09/08/2022 1:34 PM EST Plan of Treatment Health Maintenance Due Date Last Done Comments Colorectal Cancer Screening: Colonoscopy 1955 RSV Immunization Adult Patients (1 - Risk 60-74 years 1-dose series) 2015 Falls Risk Assessment 10/11/2022 Hepatitis C Screening 10/11/2022 Osteoporosis Screening (Bone Density Screening) 10/11/2022 Social Influencers of Health Screening 10/11/2022 Depression Screening 11/01/2024 Breast Cancer Screening 12/15/2024 12/15/2022 COVID-19 Vaccine ( season) 2025 10/30/2022, 10/13/2021, 01/14/2021, Additional history exists Influenza Vaccine (#1) 2025 , 11/06/2023, 07/20/2021, [...] complete this topic Insurance MEDICAID - [place] Care Teams Optical Coating Technician Relationship Specialty Start Date End Date Fahad Gutierrez MD [facility] [address] [place] [address] [address] [place] [address] PCP - General Internal Medicine 02/09/25
--- OUTSIDE RECORDS SUMMARY | 2025-08-03 10:42 | XMS_ITS | Encounter Summary ---
Author Organization [facility] Address [address] [facility] [address] [place] [address] Phone Care Team Providers Care Access Tech Name Role Phone Sosa Clement MD Primary Care Provider [phone] Encounter Details Date Type Department Care Team (Late st Contact Info) Description 07/18/2021 Procedure Pass [facility], Ct Scan - [facility] [address] [place] [address] Social History Tobacco Use Types Packs/Day Years [...] Date of Assessment Author No Risk Indicated 07/19/2021 2:53 AM EDT Bambi Leonard RN * [place] Suicide Severity Rating Scale (Screener/Recent Self-Report) Question Answer Date of Assessment Author 1. Wish to be (Past 1 Month) No 2:53 AM EDT Bambi Leonard RN 2. Non-Specific Active Suici naomi Thoughts (Past 1 Month) No 07/19/2021 2:53 AM EDT Estevan Leonard, AGUSTO 6. Suicidal Behavior (Lifetime) No 2:53 AM Bambi Lee, AGUSTO documented as of this encounter Plan of Treatment Not on file documented as of this encounter Visit Diagnoses Not on filedocumented in this encounter Care Teams Access Tech Relationship Specialty Start Date End Date Sosa Clement MD [address] [place] [address] PCP - General Pediatrics 06/15/20 documented as of this encounter Additional Source Comments The information contained in this document represents components of the legal health record. It is not the complete legal health record.[facility]
--- OUTSIDE RECORDS SUMMARY | 2025-08-03 10:42 | XMS_ITS | Clinical Summary ---
Author Organization [facility] Address [address] [place] [address] Phone Care Team Providers Care Music Composition Teacher Name Role Phone Sosa Clement MD Primary Care Provider [phone] Allergies Active Allergy Reactions Criticality Noted Date [...] PCV) 2005 OSTEOPOROSIS SCREENING INITIAL (ONE-TIME) 2020 MAMMOGRAM 12/15/2024 12/15/2022, 12/02, 07/04/2020, Additional history exists INFLUENZA VACCINE (#1) 2025 07/20/2021, 2016 COVID-19 VACCINE (2 - 2024- season) 2025 12/17/2020 RSV VACCINE (1 - 1-dose 75+ series) [...] file Insurance MEDICARE PART A & B [facility] FULL [facility] MEDICARE REPLACEMENT MEDICARE PART A & B [facility] NET FULL [facility] MEDICARE REPLACEMENT [address] [place] [id number] MEDICARE PART A & B [facility] FULL [address] [place] [phone] MEDICARE PART A & B [employer] NET FULL MEDICARE PART A & B [employer] S[employer]ET[employer] NET FULL [facility] MEDICARE REPLACEMENT [address] [place] [address] MEDICARE PART A & B [facility] FULL MEDICARE PART A & B HEALTH SAFETY NET FULL B [facility] AAR MEDICARE REPLACEMENT MEDICARE PART A & B HEALTH SAFETY NET FULL [facility] MEDICARE REPLACEMENT MEDICARE PART A & B [facility] FULL [facility] [employer] [facility] AARP MEDICARE REPLACEMENT Advance Directives For more information, please contact: [phone] (9AM - 5PM [facility], Wednesday-Wednesday) * Full Code (Latest Code Status on File) Date Activated Date Inactivated Comments 07/19/2021 2:42 AM Question Answer Comments Code Status Confirmed With: Patient Care Teams Music Composition Teacher Relationship Specialty Start Date End Date Sosa Clement MD [address] [place] [address] PCP - General Pediatrics 06/15/20 Additional Source Comments The information contained in this document represents components of the legal health record. It is not the complete legal health record.[facility]
== END 2025-08-03 10:23 | disposition home or self-care (01) ==
LOC: HO.HOS 09:57
PROVIDERS: PCP Physician Assistant; Visit Provider Physician Assistant
DX: M17.12 Unilateral primary osteoarthritis, left knee (principal)
CPT/HCPCS: 20610; 99213

== ENCOUNTER → 2025-08-03 09:56 | Outpatient (BNVA) | payer OTHER, SELFPAY | PROVIDERS: PCP Physician Assistant; Visit Provider Physician Assistant | DX: M25.562 Pain in left knee (principal); M17.12 Unilateral primary osteoarthritis, left knee | CPT/HCPCS: 20610; 99212; J0665; J1100; J2003 ==

== ENCOUNTER 2025-08-10 10:22 | Outpatient (REF) | payer MEDICARE, MEDICAID, SELFPAY ==
--- NOTE | ~2025-08-10 | XR_ITS ---
EXAMINATION: XR LUMBOSACRAL SPINE CLINICAL INFORMATION: M54.9 - Dorsalgia, unspecified COMPARISON: None available. TECHNIQUE: Three views of the lumbosacral spine. FINDINGS: Mild straightening of lumbar lordosis. There are 5 lumbar vertebrae. The L1 vertebra having lumbar ribs. The vertebral heights and alignment is normal. Loss of disc height at all disc level sparing the L5-S1 disc level. There is mild ventral spondylosis L3-4, L4-5 disc levels. No aggressive lytic or sclerotic process seen. SI joints are symmetrical and normal. No acute fracture or dislocation seen. The paravertebral soft tissues are normal. XR/XR lumbar spine 2-3V IMPRESSION: Mild degenerative disc changes throughout lumbar spine with mild ventral spondylosis. No acute fracture or lytic process seen. Electronically signed by: Julito Hawkins MD 08/10/2025 11:46 AM EDT
== END 2025-08-10 10:23 | disposition home or self-care (01) ==
LOC: HO.HOSX 10:22
PROVIDERS: PCP Physician Assistant; Visit Provider Physical Medicine & Rehabilitation
DX: M54.16 Radiculopathy, lumbar region (principal); M53.3 Sacrococcygeal disorders, not elsewhere classified
CPT/HCPCS: 72100; 99202

== ENCOUNTER 2025-08-10 10:22 | Outpatient (AMB) | payer OTHER, MEDICAID, SELFPAY ==
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
[2025-08-10 10:34] VITALS: BMI 30.9
== END 2025-08-10 11:01 | disposition home or self-care (01) ==
PROVIDERS: PCP Physician Assistant; Visit Provider Physical Medicine & Rehabilitation
DX: M54.16 Radiculopathy, lumbar region (principal); M53.3 Sacrococcygeal disorders, not elsewhere classified
CPT/HCPCS: 99204

== ENCOUNTER → 2025-08-10 11:15 | Outpatient (BNV) | payer MEDICARE, MEDICAID, SELFPAY | PROVIDERS: PCP Physician Assistant; Visit Provider Radiology Diagnostic Radiology | DX: M47.896 Other spondylosis, lumbar region (principal) | CPT/HCPCS: 72100 ==

== ENCOUNTER 2025-09-19 08:57 | Outpatient (AMB) | payer OTHER, SELFPAY ==
[2025-09-19 09:02] VITALS: BP 128/68; PULSE 82; TEMP 36.9; O2SAT 99; BMI 30.9
--- NOTE | 2025-09-19 09:02 | MHC.OFFWIV ---
Intake Vital Signs 09/19/25 09:02 Height 5 ft 4 in Weight 180 lb BMI 30.9 BP 128/68 Blood Pressure Location Rt brachial Position Sitting Pulse 82 Pulse Source Pulse Oximeter Temp 98.4 F Temp Source Oral Pulse Oximetry (%) 99 Oxygen Delivery Method Room Air Intake Visit Reasons: EP congestion,headache,sore throat, covid exposed Intake Note: Patient presents c/o sinus congestion, sore throat, headache, runny nose since yesterday. Patient states she was exposed to Covid yesterday morning. Patient Tobacco Use Status: Never used Tobacco Allergies amoxicillin (AMOXICILLIN) Allergy (Intermediate, Verified 09/19/25 09:06) RASH Penicillins (PENICILLINS) Allergy (Intermediate, Verified 09/19/25 09:06) RASH animal dander Allergy (Mild, Verified 09/19/25 09:06) SHORTNESS OF BREATH ciprofloxacin (From Cipro) Allergy (Mild, Verified 09/19/25 09:06) RASH vancomycin (Vancomycin) Allergy (Mild, Verified 09/19/25 09:06) SHORTNESS OF BREATH HPI EP congestion,headache,sore throat, covid exposed HPI Details This is a 70-year-old female patient who presents to the walk-in clinic today with a 1 day history of sinus congestion, frontal headache, mildly sore throat. Reports she was exposed to COVID via her brother, whom she saw yesterday morning. Denies any fevers/ chills. History of COPD - stable on current meds. Denies any respiratory symptoms. Denies any GI complaints. Would like viral testing if possible. [facility] Medical History Epigastric pain Low back pain Asthma-COPD overlap syndrome Tubular adenoma Diverticulosis of colon COPD (chronic obstructive pulmonary disease) Acute anxiety Allergic rhinitis Hypothyroid Asthma dependent on inhaled steroids Depression Irritable bowel Acid reflux Diverticulosis large intestine w/o perforation or abscess w/o bleeding Surgical History H/O esophagogastroduodenoscopy (~12/2018) History of colonoscopy with polypectomy (~12/2018) History of mandibular surgery Hx of cholecystectomy Hx of tubal ligation Family History Maternal Aunt Pancreatic cancer Maternal Grandmother Diabetes Stroke Maternal Grandfather Diabetes Mother COPD (chronic obstructive pulmonary disease) Father Respiratory failure Social History Household Members: Spouse Household Members Other:: Lives with an 11-year-old granddaughter Housing: House Are you a primary palliative care nurse to a significant other at home: No Do you presently have visiting nurse or other home services: No Alcohol intake: never Patient Tobacco Use Status: Never used Tobacco e-Cigarette/Vaping Use: Never Used Second Hand Smoke Exposure: No service: No Current occupational status: retired Current occupation: left hand dominant Cognitive needs: No Hearing needs: No Vision needs: Yes (glasses) Review of Systems Const All systems reviewed & are unremarkable except as noted in HPI and below Physical Exam Vital Signs: Last Vital Signs Temp 98.4 F 09/19/25 09:02 Pulse 82 09/19/25 09:02 BP 128/68 09/19/25 09:02 Pulse Ox 99 09/19/25 09:02 Oxygen Delivery Method Room Air 09/19/25 09:02 BMI result Body Mass Index 30.9 Const General: cooperative, healthy appearing, comfortable and no acute distress HEENT Head: Yes normal to inspection Ears: hearing grossly normal bilaterally and TM's normal bilaterally General nose exam: Normal external nose present Face and sinus: Yes normal facial exam Throat: Yes posterior oropharynx normal Neck Neck: Yes no lymphadenopathy Resp Effort & Inspection: normal respiratory effort Auscultation: clear to auscultation bilaterally Cardio Rate: regular rate Rhythm: regular rhythm Skin General skin exam: no rashes or lesions noted Extrem General: Yes capillary refill normal and Yes no clubbing, cyanosis or edema Psych Appearance: grossly normal Mental Status: mental status grossly normal Speech and movement: Normal speech and movement present Assessment & Plan Assessment & Plan (1) Upper respiratory infection: Code(s): J06.9 - Acute upper respiratory infection, unspecified Qualifiers: URI type: unspecified viral URI Qualified Code(s): J06.9 - Acute upper respiratory infection, unspecified Plan: Symptoms consistent with viral URI. Cov/Flu/RSV swab obtained, and patient aware she will be notified of results once these are available. Advised conservative measures for symptom management at this time, including rest, hydration, otc cold/flu products as needed. If she does not improve with time and conservative measures at home, or if symptoms worsen significantly, she can return to the clinic or the emergency department for evaluation, particularly if she develops respiratory symptoms. Patient verbalizes understanding and agrees to plan. Orders: Orders SARS-CoV2/FLU/RSV Today R09.89 - Other specified symptoms and signs involving the circulatory and respiratory systems Coding Level of Care Code Est Pt Level 4 (58403) Diagnoses Viral upper respiratory tract infection J06.9 URI type: unspecified viral URI
--- OUTSIDE RECORDS SUMMARY | 2025-09-19 16:38 | XMS_ITS | Clinical Summary ---
Author Organization [facility] Address [address] [place] [phone] Phone Care Team Providers Care Director Industrial Relations Name Role Phone Fahad Gutierrez MD Primary Care Provider [phone] Surgical History Surgery Date Site/Laterality Comments TUBAL [...] RSV Immunization Adult Patients (1 - Risk 50-74 years 1-dose series) 2005 Falls Risk Assessment 10/11/2022 Hepatitis C Screening [...] topic Insurance MEDICAID - [place] Care Teams Director Industrial Relations Relationship Specialty Start Date End Date Fahad Gutierrez MD [facility] [address] [place] [address] [address] [place] [address] PCP - General Internal Medicine 02/09/25
--- OUTSIDE RECORDS SUMMARY | 2025-09-19 16:38 | XMS_ITS | Encounter Summary ---
Author Organization [employer] Address [address] [facility] 7 [place] [address] Care Team Providers Care Digital Coordinator Name Role Phone Sosa Clement MD Primary Care Provider [phone] Reason for Visit * Reason Onset Date Comments Referral 12/17/2022 Encounter Details Date Type Department Care Team ([facility] st Contact Info) Description 12/17/2022 Telephone [facility] CHC MED & PEDS [address] [place], [place] [phone] Sosa Clement MD [address] [place] [address] Referral Social History Tobacco Use Types Packs/Day [...] is Kenyatta and their fax number is [phone]. If any questions please contact pt at [phone] Nauruan Speaker documented in this encounter Plan of Treatment Not on file documented as of this encounter Visit Diagnoses Not on filedocumented in this encounter Care Teams Digital Coordinator Relationship Specialty Start Date End Date Sosa Clement MD [address] [place] [address] PCP - General Family Medicine 11/01/18 documented as of this encounter
--- OUTSIDE RECORDS SUMMARY | 2025-09-19 16:38 | XMS_ITS | Encounter Summary ---
Author Organization [employer] Address [address] [facility] 7t [place] [address] Care Team Providers Care Director Decision Support Name Role Phone Sosa Clement MD Primary Care Provider [phone] Reason for Visit * Reason Comments Med Refill Encounter Details Date Type Department Care Team ([facility] Contact Info) Description 06/17/2024 Refill [facility] CHC MED & PEDS [address] [place], [place] [phone] Sosa Clement MD [address] [place] [address] Social History Tobacco Use Types Packs/Day Years [...] documented as of this encounter Care Teams Director Decision Support Relationship Specialty Start Date End Date Sosa Clement MD [address] [place] [address] PCP - General Family Medicine 11/01/18 documented as of this encounter
--- OUTSIDE RECORDS SUMMARY | 2025-09-19 16:38 | XMS_ITS | Encounter Summary ---
Author Organization [facility] Address [address] [facility] [address] [place] [address] Phone Care Team Providers Care Telegraphic Instrument Supervisor Name Role Phone Sosa Clement MD Primary Care Provider [phone] Encounter Details Date Type Department Care Team (Late st Contact Info) Description 07/18/2021 Procedure Pass [facility], Ct Scan - [facility] [address] [place] [address] Social History Tobacco Use Types Packs/Day Years [...] 2:53 AM EDT Bambi Leonard RN * [place] Suicide Severity Rating Scale (Screener/Recent Self-Report) Question [...] on filedocumented in this encounter Care Teams Telegraphic Instrument Supervisor Relationship Specialty Start Date End Date Sosa Clement MD [address] [place] [address] PCP - General Pediatrics 06/15/20 documented as of this encounter Additional Source Comments The information contained in this document represents components of the legal health record. It is not the complete legal health record.[facility]
--- OUTSIDE RECORDS SUMMARY | 2025-09-19 16:38 | XMS_ITS | Encounter Summary ---
Author Organization [facility] Address [address] [facility] [address] [place] [address] Phone Care Team Providers Care Program Manager Name Role Phone Sosa Clement MD Primary Care Provider [phone] Encounter Details Date Type Department Care Team (Late st Contact Info) Description 07/13/2021 Procedure Pass [facility], Ct Scan - [facility] [address] [place] [address] Social History Tobacco Use Types Packs/Day Years [...] 8:07 PM EDT Stefany Correa RN * [place] Suicide Severity Rating Scale (Screener/Recent Self-Report) Question [...] on filedocumented in this encounter Care Teams Program Manager Relationship Specialty Start Date End Date Sosa Clement MD [address] [place] [address] PCP - General Pediatrics 06/15/20 documented as of this encounter Additional Source Comments The information contained in this document represents components of the legal health record. It is not the complete legal health record.[facility]
--- OUTSIDE RECORDS SUMMARY | 2025-09-19 16:38 | XMS_ITS | Clinical Summary ---
Author Organization [facility] Address [address] [facility] [address] [place] [address] Phone Care Team Providers Care Digitizer Operator Name Role Phone Sosa Clement MD Primary Care Provider [phone] Allergies Active Allergy Reactions Criticality Noted Date [...] patient's age to complete this topic IPV VACCINES Aged Out No longer eligi ble based on patient's age to complete this topic MENINGOCOCCAL VACCINES (ACWY) Aged Out No longer eligible based on patient's age to complete this topic MENINGOCOCCAL VACCINES (B) Aged Out N o longer eligible based on patient's age to complete this topic Medical Devices Not on file Insurance [place] [id number] [facility] FULL [facility] MEDICARE REPLACEMENT MEDICARE PART A & B [facility] NET FULL [facility] MEDICARE REPLACEMENT MEDICARE PART A & B [facility] FULL MEDICARE PART A & B [employer] NET FULL MEDICARE PART A & B NET FULL [facility] MEDICARE REPLACEMENT MEDICARE PART A & B [facility] FULL MEDICARE PART A & B [facility] NET [address] [place], [place] [id number] [facility] MEDICARE REPLACEMENT MEDICARE PART A & B HEALTH SAFETY NET FULL Member Subscriber Plan / Payer (Ef fective 2019-Present) Name:Nicol Sexton Relation to Subscriber:Self Name:Nicol Sexton Payer ID:Not on file Group ID:Not on file Type:Medicaid [address] [facility] AAR MEDICARE REPLACEMENT MEDICARE PART A & B HEALTH SAFETY NET FULL [facility] MEDICARE REPLACEMENT Advance Directives For more information, please contact: [phone] (9AM - 5PM [facility], Wednesday-Wednesday) * Full Code (Latest Code Status on File) Date Activated Date Inactivated Comments 07/19/2021 2:42 AM Question Answer Comments Code Status Confirmed With: Patient Care Teams Digitizer Operator Relationship Specialty Start Date End Date Sosa Clement MD [address] [place] [address] PCP - General Pediatrics 06/15/20 Additional Source Comments The information contained in this document represents components of the legal health record. It is not the complete legal health record.[facility]
--- OUTSIDE RECORDS SUMMARY | 2025-09-19 16:38 | XMS_ITS | Clinical Summary ---
Author Organization [employer] Address [address] [place] [address] 7t [place] [address] Care Team Providers Care Clinical Allergist Name Role Phone Sosa Clement MD Primary Care Provider [phone] Allergies Active Allergy Reactions Criticality Noted Date Comments Cat Dander 12/16/2018 Ciprofloxacin Unknown 11/13/2010 Other reaction(s): unspecified Penicillins 07/05/2013 Vancomycin Unknown 11/13/2010 Medications levothyroxine (Synthroid, Levoxyl) 100 MCG tabletIndications: Acquired hypothyroidism TAKE 1 TABLET BY MOUTH ONCE DAILY 30 tablet 5 3 Active fluticasone (Flovent) 220 MCG/ACT inhalerIndications :Severe persistent asthma with allergic rhinitis with acute exacerbation (HCC) Inhale 1 puff in the morning and [...] 3 Active D3 Super Strength 50 MCG (1999 UT) capsuleIndications :Vitamin D deficiency TAKE 1 CAPSULE BY MOUTH TWICE DAILY 180 capsule 1 3 Active hydrOXYzine HCl (Atarax) 25 MG tablet TAKE 1 TABLET BY MOUTH EVERY TWELVE HOURS NEEDED FOR ITCHING 60 tablet 3 4 Active levothyroxine (Synthroid, Levoxyl) 100 MCG tabletIndications: Acquired hypothyroidism TAKE 1 TABLET BY MOUTH ONCE DAILY BEFORE BREAKFAST 30 tablet 5 Active Active Problems Problem Noted Date Diagnosed Date Severe persistent asthma with allergic rhinitis 04/11/2020 Asthma-chronic obstructive p ulmonary disease overlap syndrome (CMS/HCC) 04/22/2017 Overview (12/24/2022): Last Assessment & Plan: [...] 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 Immunizations Immunization Administration Dates Next Due Moderna Covid-19 Vaccine [...] 76 04/07/2023 9:11 AM EDT Temperature 36.9 C (98.4 F) 04/07/2023 9:11 AM EDT Respiratory Rate 16 04/07/2023 9:11 AM EDT [...] 60 years or older (1 - Risk 50-74 years 1-dose series) 2005 Depression Monitoring 10/07/2023 04/07/2023, 023 Tobacco Screening 03/10/2024 03/10/2023 SDOH Screening 04/07/2024 04/07/2023 Mammogram 12/15/2024 12/15/2022, 12/2019, 10/27/2018 COVID-19 Vaccine ( season) 2025 10/30/2022, 10/13/2021, 01/14/2021, Additional history exists Influenza Vaccine (#1) 2025 , 07/20/2021, 07/28/2018, Additional history exists DTaP/Tdap/Td Vaccines (2 - Td or Tdap) [...] AM EST Narrative 12/16/2022 11:32 AM EST [facility] [address] [place] [address] Mammography Report Signed Patient: Nicol Sexton MR#: [id number] : 1955 Acct:[id number] Age/Sex: 67 / F ADM Date: 12/15/22 Loc: HO.MAMMO Attending Dr: Iftikhar Marin MD Ordering Physician: Tomer Moore MD Results: 2Benig n Findings Date of Service: 12/15/22 Follow Up: 1 Year From [facility] Mammogram Procedure(s): MM tomosynthesis screening BI Accession Number(s): [id number] cc: Tomer Moore MD EXAMINATION: MM SCREENING [...] in OV> 12/16/22 1129 DD/ 0820 TD/TT: Rn Lactation: HESTER Procedure Note Donotuseinterpreter, Image - 12/16/2022 [facility] [place] [address] Mammography Report Signed Patient: Rick Sexton#: [id number] : 5Acct:[id number] Age/Sex: 67 / FADM Date: 12/15/22 Loc: HO.MAMMO Attending Dr: Iftikhar Marin MD Ordering Physician: Tomer Moore MDResults: 2Benig n Findings Date of Service: 12/15/22Follow Up: 1 Year From Orig ina Mammogram Procedure(s): MM tomosynthesis screening BI Accession Number(s): [id number] cc: Tomer Moore MD EXAMINATION: MM SCREENING [...] in OV> 12/16/22 1129 DD/ 0820 TD/TT: Rn Lactation: MIR [facility] External Provider IMG BI PROCEDURES Edited Result - Final from Last 3 Months or Most Recently Relevant to Health Maintenance Insurance MEDICARE [facility] OPTIONS Care Teams Clinical Allergist Relationship Specialty Start Date End Date Sosa Clement MD [address] [place] [place] [address] PCP - General Family Medicine 11/01/18
--- OUTSIDE RECORDS SUMMARY | 2025-09-19 16:38 | XMS_ITS | Encounter Summary ---
Author Organization [employer] Address [address] [facility] 7t [place] [address] Care Team Providers Care Leathersmith Name Role Phone Sosa Clement MD Primary Care Provider [phone] Reason for Visit * Reason Comments Med Refill Encounter Details Date Type Department Care Team ([facility] st Contact Info) Description 02/03/2023 Refill [facility] CHC MED & PEDS [address] [place], [place] [phone] Iftikhar Marin MD [address] [place] [address] Severe persistent asthma with allergic rhinitis with [...] with allergic rhinitis with acute exacerbation (HCC) documented in this encounter Care Teams Leathersmith Relationship Specialty Start Date End Date Sosa Clement MD [address] [place] [address] PCP - General Family Medicine 11/01/18 documented as of this encounter
--- OUTSIDE RECORDS SUMMARY | 2025-09-19 16:38 | XMS_ITS | Encounter Summary ---
Author Organization [employer] Address [address] [facility] 7t [place] [address] Care Team Providers Care Support Team Assoc Name Role Phone Sosa Clement MD Primary Care Provider [phone] Encounter Details Date Type Department Care Team (Late st Contact Info) Description 04/21/2023 Abstract [facility] MEDICINE [address] [place] [address] Sosa Clement MD [address] [place] [address] Social History Tobacco Use Types Packs/Day Years [...] documented as of this encounter Care Teams Support Team Assoc Relationship Specialty Start Date End Date Sosa Clement MD [address] [place] [address] PCP - General Family Medicine 11/01/18 documented as of this encounter
--- OUTSIDE RECORDS SUMMARY | 2025-09-19 16:38 | XMS_ITS | Encounter Summary ---
Author Organization [employer] Address [address] [facility] 7t [place] [address] Care Team Providers Care Pharmacy Graduate Intern Name Role Phone Sosa Clement MD Primary Care Provider [phone] Reason for Visit * Reason Comments Med Refill Encounter Details Date Type Department Care Team ([facility] st Contact Info) Description 01/11/2025 Refill [facility] CHC MED & PEDS [address] [place], [place] [phone] Sosa Clement MD [address] [place] [address] Chronic obstructive pulmonary disease, unspecified (CMS/HCC) Social [...] Diagnoses Diagnosis Chronic obstructive pulmonary disease, unspecified (HCC) documented in this encounter Additional Health Concerns Assessment Noted Time PHQ-9 Depression Total Score: 16 023 9:12 AM EDT documented as of this encounter Care Teams Pharmacy Graduate Intern Relationship Specialty Start Date End Date Sosa Clement MD [address] [place] [address] PCP - General Family Medicine 11/01/18 documented as of this encounter
--- OUTSIDE RECORDS SUMMARY | 2025-09-19 16:38 | XMS_ITS | Encounter Summary ---
Author Organization [employer] Address [address] [facility] 7t [place] [address] Care Team Providers Care Office Rental Clerk Name Role Phone Sosa Clement MD Primary Care Provider [phone] Reason for Visit * Reason Comments Med Refill Encounter Details Date Type Department Care Team ([facility] Contact Info) Description 06/26/[address] [facility] CHC MED & PEDS [address] [place], [place] [phone] Sosa Clement MD [address] [place] [address] Social History Tobacco Use Types Packs/Day Years [...] documented as of this encounter Care Teams Office Rental Clerk Relationship Specialty Start Date End Date Sosa Clement MD [address] [place] [address] PCP - General Family Medicine 11/01/18 documented as of this encounter
== END 2025-09-19 09:34 | disposition home or self-care (01) ==
PROVIDERS: PCP Physician Assistant; Visit Provider Nurse Practitioner Family
DX: J06.9 Acute upper respiratory infection, unspecified (principal)

== ENCOUNTER 2025-09-19 08:57 | Outpatient (REF) | payer OTHER, SELFPAY ==
--- OUTSIDE RECORDS SUMMARY | 2024-10-10 06:50 | XMS_ITS ---
Author Organization [facility] Address [address] [facility] [address] [place] [address] Care Team Providers Care Propeller Engineer Name Role Phone Jesús Cordoba Primary Care Provider Unavailab Delmar Ramirez Jr REASON FOR VISIT epigastric pain,abnormal UGI series Problems Problem Type SNOMED Code ICD Code Onset Dates Problem Status W/U Status Risk Notes Problem Gastro-esophagea l reflux disease without esophagitis (042080391) Gastro-esophage al reflux disease without esophagitis (K21.9) Active confirmed Encounters Encounter Location Date Provider Diagnosis [facility] [place] Outpatient [address] [place] [phone] 10/10/2024 Delmar Zhang Jr Epigastric pain R10.13 ; Abnormal UGI series R93.3 and Gastro-esophageal reflux disease without esophagitis K21.9 Assessments Encounter Date Diagnosis (ICD Code) Assessment Notes Treatment Notes Treatment Clinical Notes Section Notes 10/10/2024 Epigastric pain (ICD-10 - R10.13) 10/10/2024 Abnormal UGI series (ICD-10 - R93.3) 10/10/2024 Gastro-esophagea l reflux disease without esophagitis (ICD-10 - K21.9) Plan Of Treatment Next Appt Details Provider Name:Delmar busby Jr, 12/24/2025 09:00:00 AM, [address], [address], [place], [address], Progress Notes * LION LANCASTER NDOB:1955 (70 yo F)Acc No.[id number]:10/10/2024 EGD/MAC Patient: LION SAN Provider: Arnold Zhang MD :1955 A ge:69 Y S ex:Female Date:10/10/2024 Address:[address] [place] [address] Pcp:Jesús Cordoba Subjective: * Chief Complaints: * e pigastric pain,abnormal UGI series Assessment: * Assessment: 1. E pigastric pain - R10.13 (Primary) 2 . A bnormal UGI series - R93.3? 3. G mahi-esophageal reflux disease without esophagitis - K21.9 Plan: * Procedure Codes: 4 3239 UPPER GI ENDOSCOPY, BIOPSY Billing Information: * Procedure Codes: 59767 UPPER GI ENDOSCOPY, BIOPSY. * The named appointment provid er may or may not be the originator of this progress note, and it is not deemed complete until electronically signed by the appointment provider. Sign off status: Pending * Provider: Arnold Zhang MD Date: 12/11/2023 Generated for Eva brock/Iveth/eTransmitting on: 11/19/2024 08:31 PM EST
--- OUTSIDE RECORDS SUMMARY | 2024-10-16 05:40 | XMS_ITS ---
Author Organization [facility] Address [address] [place] [address] [place] [address] Care Team Providers Care Net Trainer Name Role Phone Jesús Cordoba Primary Care Provider Unavailab Delmar Ramirez Jr [phone] REASON FOR VISIT epigastric pain Encounters Encounter Location Date Provider Diagnosis [facility] [address] [place] [address] [place] [address] 10/16/2024 Delmar Zhang Jr Plan Of Treatment Next Appt Details Provider Name:Delmar busby Jr, 12/24/2025 09:00:00 AM, [address] [place] [address], [address], [place], [address], Progress Notes * TONNYLION NDOB:1955 (70 yo F)Acc No.[id number]:10/16/2024 Progress Notes Patient: LION SAN Meliton Provider: Arnold Zhang MD :1955 A ge:69 Y S ex:Female Date:10/16/2024 Address:[address] [place], [place] [phone] Pcp:Jesús Cordoba Subjective: * Chief Complaints: * E pigastric pain * The named appointment provid er may or may not be the originator of this progress note, and it is not deemed complete until electronically signed by the appointment provider. Sign off status: Pending * Provider: Arnold Zhang MD Date: 12/17/2023 Generated for Eva brock/Iveth/Jaret on: 11/19/2024 08:31 PM EST
--- OUTSIDE RECORDS SUMMARY | 2025-07-24 03:20 | XMS_ITS ---
Author Organization [facility] Address [address] [place] [address] [place] [phone] Care Team Providers Care Communications Designer Name Role Phone Jesús Cordoba Primary Care Provider Unavailab Delmar Ramirez Jr [phone] REASON FOR VISIT screening Encounters Encounter Location Date Provider Diagnosis [facility] [address] [place] [id number] 07/24/2025 Delmar Zhang Jr Plan Of Treatment Next Appt Details Provider Name:Delmar busby Jr, 12/24/2025 09:00:00 AM, [address] [place] [address], Suite [facility], [place], [phone], Progress Notes * LION LANCASTER NDOB:1955 (70 yo F)Acc No.[id number]:07/24/2025 COLON WITH MAC Patient: LION SAN Provider: Arnold Zhang MD :1955 A ge:70 Y S ex:Female Date:07/24/2025 Address:[address] [place], [place] [id number] Pcp:Jesús Cordoba Subjective: * Chief Complaints: * S creening Billing Information: * Procedure Codes: * The named appointment provid er may or may not be the originator of this progress note, and it is not deemed complete until electronically signed by the appointment provider. Sign off status: Pending * Provider: Arnold Zhang MD Date: 0 07/24/2025 Generated for Eva brokc/Iveth/Jaret on: 1 11/19/2024 08:31 PM EST
[2025-09-19 12:57] LABS: Resp Syncy Virus RNA Qual PCR NEGATIVE (Negative); SARS COV2 PCR INHOUSE NEGATIVE (Negative)
--- OUTSIDE RECORDS SUMMARY | 2025-09-19 20:32 | XMS_ITS | Patient Health Record ---
Author Organization [facility] Address [address] [place] [address] Care Team Providers Care Communications Project Manager Name Role Phone Jesús Cordoba Primary Care Provider Delmar Caballero Jr Allergies Allergen (clinical drug ingredient) Drug/Non Drug Allergy documented on EMR Reaction Allergy Type Onset Date Status ciprofloxacin Ciprofloxacin rash Drug Allergy Active Penicillin Unknown Drug Allergy Active Results Component Value Reference Range Flag Notes Pathology Reviewed date:10/17/2024 03:41:31 PM Interpretation: Performing Lab:[facility], [address] [place] [phone] Notes/Report: Complete Blood Count no Diff Reviewed date:10/17/2024 03:39:35 PM Interpretation: Performing Lab:[facility], [address] [place] [phone] Notes/Report: White Blood Count 7.6 4.8-10.8 X10*3/uL N Red Blood Count 4.35 4.20-5.50 X10*6/uL N Hemoglobin 12.1 12.0-16.0 g/dl N Hematocrit 38.1 37.0-47.0 % N Mean Corpuscular Volume 87.6 80.0-98.0 fL N Mean Corpuscular Hemoglobin 27.8 27.0-33.0 pg N Mean Corpuscular HGB Conc 31.8 31.0-35.0 g/dl N Red Cell Distribution Width 13.6 11.0-16.0 % N Platelet Count 233 160-400 X10*3/uL N Mean Platelet Volume 11.5 9.4-12.3 fL N NRBC Pct Auto 0.0 0.0-0.2 /100WBC N NRBC Abs Auto 0.000 0.0-0.012 X10*3/uL N Liver Panel Reviewed date:10/17/2024 03:38:47 PM Interpretation: Performing Lab:[facility], [address] [place] [phone] Notes/Report: Bilirubin Total 0.5 0.0-1.0 mg/dL N Bilirubin Direct 0.2 0.0-0.5 mg/dL N Aspartate Amino Transferase 17 5-31 U/L N Alanine Aminotransferase 11 0-31 U/L N Total Protein 6.8 6.5-8.0 g/dL N Albumin Level 3.8 3.5-5.0 g/dL N Alkaline Phosphatase 164 39-117 U/L H Lipase Reviewed date:10/17/2024 03:39:42 PM Interpretation: Performing Lab:[facility], [address] [place] [phone] Notes/Report: Lipase 17 8-78 U/L N US abdomen complete Reviewed date:01/16/2025 01:28:04 PM Interpretation: Performing Lab: Notes/Report: [address] [address] Ultrasound Report Signed Patient: Lion [place] MR#: [id number] : 1955 Acct:[id number] Age/Sex: 69 / F ADM Date: 01/12/25 Loc: HO.US Attending Dr: Delmar Zhang MD Ordering Physician: Delmar Zhang MD Date of Service: 01/12/25 Procedure(s): US abdomen complete Accession Number(s): [id number] cc: Delmar Zhang MD; Jesús Cordoba PA-C CLINICAL HISTORY: ELEVATED LFTS US abdomen complete. COMPARISON: US abdomen dated 02/10/23 at 09:05 EDT Technique: Real time sonographic imaging, including color-flow imaging, was performed by the lean six sigma black belt. Multiple telemarketing sales representative static images were saved for review. FINDINGS: The visualized aorta and inferior vena cava are normal caliber. The visualized portions of the pancreas appear normal. The liver has normal echotexture. Liver, right lobe size: 14.8 cm, normal. Cholecystectomy. Common bile duct: 3 mm, normal Right kidney: Cortical medullary differentiation is maintained. No calculus or focal parenchymal abnormality identified. No hydronephrosis. Right kidney length: 10.4 cm Left kidney: Cortical medullary differentiation is maintained. No calculus or focal parenchymal abnormality identified. No hydronephrosis. Left kidney length: 9.4 cm The spleen has normal echogenicity. Splenic length: 10.3 cm, normal. No free intraperitoneal fluid identified. IMPRESSION: 1. No cause for patient's symptoms identified. Unremarkable abdominal ultrasound. This document has been electronically signed by: Rohit Monroe MD on 01/12/2025 15:45:13 Dictated By: Rohit Monroe MD Signed By: <Electronically signed by Rohit Monroe MD in OV> 01/12/25 1545 DD/ 44 TD/TT: 01/12/251544 Tobacco Feeder Catcher: Reason For Referral No Information Medications Medication SIG (Take, Route, Frequency, Duration) Notes Start Date End Date Status Levothyroxine Sodium 100 MCG Tablet Oral; Duration: 30 Active Ventolin HFA 108 (90 Base) MCG/ACT Aerosol Solution INHALE 2 PUFFS EVERY 4 TO 6 HOURS NEEDED FOR SHORTNESS OF BREATH OR FOR WHEEZE Inhalation; Duration: 25 Active Topiramate 25 MG Tablet Oral; Duration: 30 Not-Takin g/VT N Ibuprofen 800 MG Tablet Oral; Duration: 6 Days Not-Taking/VT N MiraLax 17 GM/SCOOP Powder take for bowel prep Orally Once a day 06/18/2025 Active Pantoprazole Sodium 40 MG Tablet Delayed Release TAKE 1 TABLET BY MOUTH EVERY DAY Oral; Duration: 90 Active Dulcolax 5 MG Tablet Delayed Release take 2 tablets orally at 3:00 p.m. and 7:00 p.m. the day before the procedure Orally 2 pills at 3:00 p.m. and 7:00 p.m. the day before the procedure; Duration: 1 days 06/18/2025 Active Calcium Carb-Cholecalciferol 600-10 MG-MCG Tablet TAKE 1 TABLET BY MOUTH TWICE A DAY Oral; Duration: 90 Days Active Famotidine 40 MG Tablet 1 tablet Orally Once a day Active Montelukast Sodium 10 MG Tablet TAKE 1 TABLET BY MOUTH EVERY DAY AT BEDTIME Oral; Duration: 30 [id number],Unavai lable Active Trelegy Ellipta 200-62.5-25 MCG/ACT Aerosol Powder Breath Activated Inhalation; Duration: 30 Active Immunizations Vaccine Route Administration Date Status Comme nts Influenza Unknown 07/18/2024 Administered Influenza Unknown 09/06/2024 Administered Social History Tobacco Use: Social History Observation Description Date Details (start date - stop date) Never Smoker NA - NA Social History Drug/Alcohol: Social Info Question Answer Notes AUDIT-C (Standard) Did you have a drink containing alcohol in the past year? No Points 0 Interpretation Negative Tobacco Use: Social Info Question Answer Notes Tobacco Control (Standard) Tobacco use: Nonsmoker Additional Details Category Social Info Options Details Miscellaneous: Marital status: Occupation: retired Problems Problem Type SNOMED Code ICD Code Onset Dates Problem Status W/U Status Risk Notes Problem Epigastric pain (71254029) Epigastric pain (R10.13) Active confirmed Problem Gastro-esophageal reflux disease without esophagitis (594178882) Gastro-esophageal reflux disease without esophagitis (K21.9) Active confirmed Problem Screening for malignant neoplasm of colon (101346336) Encounter for screening for malignant neoplasm of colon (Z12.11) Active confirmed Problem Elevated liver enzymes level (904996632) Elevated LFTs (R79.89) Active confirmed Problem Gastroesophageal reflux disease without esophagitis (093202575) Gastroesophageal reflux disease without esophagitis (K21.9) Active confirmed Problem Abnormal UGI series (R93.3) Active confirmed Vital Signs Heart Rate 72 /min 06/18/2025 Temperature 97.3 degrees Fahrenheit 06/18/2025 Blood pressure diastolic 01 mm Hg 06/18/2025 Height 5 ft 4 in in 06/18/2025 Blood pressure systolic 001 mm Hg 06/18/2025 Weight 179.8 lbs 06/18/2025 BMI 30.86 kg/m2 06/18/2025 Encounters Encounter Location Date Provider Diagnosis [facility] [address] [place] [id number] 10/10/2024 Delmar Zhang Jr Epigastric pain R10.13 ; Abnormal UGI series R93.3 and Gastro-esophageal reflux disease without esophagitis K21.9 [facility] [address] [place] [id number] 07/24/2025 Delmar Zhang Jr [facility] [address] [facility] [place] [address] 09/20/2024 Delmar Zhang Jr Epigastric pain R10.13 and Abnormal UGI series R93.3 [facility] [address] [facility] [address] 12/20/2024 Delmar Zhang Jr Elevated LFTs R79.89 and Gastroesophageal reflux disease without esophagitis K21.9 [facility] [address] [facility] [address] 06/18/2025 Delmar Zhang Jr Gastro-esophageal reflux disease without esophagitis K21.9 ; Elevated LFTs R79.89 and Encounter for screening for malignant neoplasm of colon Z12.11 [facility] [address] [facility] [address] 10/13/2024 Delmar Zhang Jr Nausea and vomiting, unspecified vomiting type R11.2 [facility] [address] [facility] [place] [address] 10/13/2024 Delmar Zhang Jr [facility] [address] [facility] [place] [address] 10/17/2024 Delmar Zhang Jr [facility] [address] [facility] [place] [address] 01/16/2025 Delmar Zhang Jr [facility] [address] [place] [phone] 06/18/2025 Delmar Zhang Jr Assessments Encounter Date Diagnosis (ICD Code) Assessment Notes Treatment Notes Treatment Clinical Notes Section Notes 10/10/2024 Abnormal UGI series (ICD-10 - R93.3) 09/20/2024 Epigastric pain (ICD-10 - R10.13) Digestive diseases material was printed We discussed her symptoms today. We discussed the causes of epigastric pain, and stomach problems in general. We recommended a trial of simethicone, [id number], for her complaints of gas. She has [...] general. We recommended a trial of simethicone, [id number], for her complaints of gas. She has [...] imaging. Followup will be in one year. 06/18/2025 Gastro-esophageal reflux disease without esophagitis (ICD-10 - K21.9) We discussed her symptoms today. She remains asymptomatic from her liver function test elevations and has had fairly normal imaging. We will continue to follow these laboratory testings and her most recent imaging and laboratory studies are reviewed. Reflux symptoms are under good control on PPI and as needed H2 blockers. She is due for colonoscopy. This will be arranged. She understands risks and benefits and agrees to proceed. 10/10/2024 Epigastric pain (ICD-10 - R10.13) 06/18/2025 Elevated LFTs (ICD-10 - R79.89) We discussed her symptoms today. She remains asymptomatic from her liver function test elevations and has had fairly normal imaging. We will continue to follow these laboratory testings and her most recent imaging and laboratory studies are reviewed. Reflux symptoms are under good control on PPI and as needed H2 blockers. She is due for colonoscopy. This will be arranged. She understands risks and benefits and agrees to proceed. 10/13/2024 Nausea and vomiting, unspecified vomiting type (ICD-10 - R11.2) 10/10/2024 Gastro-esophageal reflux disease without esophagitis (ICD-10 - K21.9) 06/18/2025 Encounter for screening for malignant neoplasm of colon (ICD-10 - Z12.11) We discussed her symptoms today. She remains asymptomatic from her liver function test elevations and has had fairly normal imaging. We will continue to follow these laboratory testings and her most recent imaging and laboratory studies are reviewed. Reflux symptoms are under good control on PPI and as needed H2 blockers. She is due for colonoscopy. This will be arranged. She understands risks and benefits and agrees to proceed. Plan Of Treatment Pending Test Test Name [...] Name Order Date UPPER GI ENDOSCOPY 09/20/2024 COLONOSCOPY 06/18/2025 Next Appt Details Provider Name:Delmar busby Jr, 12/24/2025 09:00:00 AM, [address] [place] [address], [address], [place], [address], Insurance Providers Payer Name Payer Address Payer Phone Subscriber Number Group Number Insured Name Patient Relationship to Insured Coverage Start Date Coverage End Date [facility] [address] Attn Claims [place] [id number] LION LANCASTER Self - patient is the insured MEDICA[employer] OF [employer] (PICA) [address] [place] [phone] [id number] LION LANCASTER Self - patient is the insured Medical (General) History Medical History History ICD Code Asthma Hypothyroidism Anxiety/depression DCIS left breast status post lumpectomy, XRT, tamoxifen Diverticulosis/colon polyps, colonoscopy 01/17, tubular adenoma. EGD 10/24, 5 cm hiatal hernia, esophagit is on biopsy, no BE/HP Surgical History Surgery Date(Month/Year) Mandibular surgery 1978 Tubal ligation Cholecystectomy
== END 2025-09-19 08:58 | disposition home or self-care (01) ==
LOC: HO.LNP 08:57
PROVIDERS: PCP Physician Assistant; Visit Provider Nurse Practitioner Family
DX: J06.9 Acute upper respiratory infection, unspecified (principal); J02.9 Acute pharyngitis, unspecified; R09.89 Other specified symptoms and signs involving the circulatory and respiratory systems; R51.9 Headache, unspecified
CPT/HCPCS: 87637; 99212